=== PATIENT | female | born 1960 | race Caucasian/White ===

== ENCOUNTER 2016-05-03 10:51 | Inpatient (IN) | payer OTHER ==
[~2016-05-03] VITALS: Ht 167.6 cm; Wt 116.0 kg
[~2016-05-03 10:51] MED LIST: ADV25050 INH; ALBU18HF INHALATION; BENA10TA48 PO; DIGO250T PO; FURO40TA4 PO; GLIM4TAB PO; METF1000 PO; METO-429 PO; MONT10TA24 PO; RIVA20TA PO; SITA100T8 PO; SPIR25TA PO; TIOT18CA INH
[2016-05-03] MEDS ORDERED: HYDROmorphONE 1 MG/ML SYG IV STA (11:31)
[2016-05-03] MEDS ORDERED: SOD CHLORIDE 0.9% 1,000 ML IV STA (11:31)
[2016-05-03] MEDS ORDERED: ONDANSETRON 4 MG INJ IV STA (11:31)
--- NOTE | 2016-05-03 12:07 | ERA ---
ER Documentation Chief Complaint Date/Time DATE: 05/03/16 TIME: 12:06 Chief Complaint Complains of severe abdominal pain and swelling of the lower extremities HPI This is a 55-year-old female with a history of brain tumor, diabetes, hypertension, CHF who is here for 1 week of diffuse abdominal pain described as achy and crampy. She says nothing makes it worse but having a bowel movement makes it better. She says she has had constipation but no diarrhea no vomiting no fever. No radiation of pain to the back. Patient was recently seen and admitted at [facility] for pneumonia and CHF she is not having any shortness of breath or cough. She does have some word finding difficulty due to the brain mass. ROS All systems reviewed and are negative except as per history of present illness. Medications Home Meds Active Scripts Tiotropium Terril* (Spiriva*) 18 Mcg Cap.w.dev, 1 INH INH DAILY for 30 Days Prov:BRITTANY HAYES NP 01/09/16 Spironolactone* (Aldactone*) 25 Mg Tablet, 25 MG PO DAILY for 30 Days, TAB Prov:BRITTANY HAYES NP 01/09/16 Salmeterol Xinaf/Fluticasone* (Advair*) 250-50 Diskus Inhaler, 1 INH INH BID for 30 Days Prov:BRITTANY HAYES NP 01/09/16 Rivaroxaban* (Xarelto*) 20 Mg Tablet, 20 MG PO WITH DINNER for 30 Days, TAB Prov:BRITTANY HAYES NP 01/09/16 Montelukast Sodium* (Montelukast Sodium*) 10 Mg Tablet, 10 MG PO HS for 30 Days , TAB Prov:BRITTANY HAYES NP 01/09/16 Metoprolol Tartrate* (Lopressor*) 50 Mg Tab, 50 MG PO BID for 30 Days, TAB Prov:BRITTANY HAYES NP 01/09/16 Digoxin* (Digitek*) 250 Mcg Tablet, 0.25 MG PO DAILY@13 for 30 Days, TAB Prov:BRITTANY HAYES NP 01/09/16 Albuterol Sulfate* (Ventolin HFA*) 18 Gm Hfa.aer.ad, 2 PUFF INHALATION Q4H, #1 INHALER Prov:KEKE SMALLS MD 12/25/15 Reported Medications Glimepiride* (Glimepiride*) 4 Mg Tablet, 4 MG PO WITH BREAKFAST DINNE, TAB 01/03/16 Sitagliptin* (Januvia*) 100 Mg Tablet, 100 MG PO DAILY, #30 TAB 01/03/16 Metformin Hcl* (Metformin Hcl*) 1,000 Mg Tablet, 1000 MG PO WITH BREAKFAST DINNE , #30 TAB 01/03/16 Benazepril Hcl* (Benazepril Hcl*) 10 Mg Tablet, 10 MG PO DAILY 05/11/12 Furosemide (Lasix) 40 Mg Tab, 40 MG PO DAILY 05/11/12 Allergies Allergies: Coded Allergies: No Known Allergy (Unverified , 05/03/16) PMhx/Soc History of Surgery: Yes (Brain tumor) Anesthesia Reaction: No Hx Neurological Disorder: Yes (Brain tumor) Hx Respiratory Disorders: Yes (COPD) Hx Cardiac Disorders: Yes (HTN, CHF, Afib) Hx Psychiatric Problems: No Hx Miscellaneous Medical Probl: No Hx Alcohol Use: No Hx Substance Use: No Hx Tobacco Use: Yes FmHx Family History: No coronary disease Physical Exam Vitals Vital Signs Date Time Temp Pulse Resp B/P Pulse Ox O2 Delivery O2 Flow Rate FiO2 05/03/16 18:40 98.7 118 20 107/94 100 Nasal Cannula 2.0 05/03/16 18:35 123 05/03/16 10:54 98.7 156 20 100 Physical Exam Const: Well-developed, well-nourished Head: Atraumatic, normocephalic Eyes: Normal Conjunctiva, PERRLA, EOMI, normal sclera, no nystagmus ENT: Normal External Ears, Nose and Mouth, moist mucus membranes. Neck: Full range of motion. No meningismus, no lymphadenopathy. Resp: Clear to auscultation bilaterally, no wheezing, rhonchi, rales Cardio: Regular rate and rhythm, no murmurs, S1 S2 present Abd: Soft, diffuse mild to moderate tenderness non distended. Normal bowel sounds, no guarding or rebound, no pulsitile abdominal masses or bruits Skin: No petechiae or rashes, no ecchymosis , no maculopapular rash Back: No midline or flank tenderness Ext: No cyanosis, or edema, FROM x 4, normal inspection, neurovascularly intact x 4 Neur: Awake and alert, STR 5/5 x 4, sensation intact x 4, no focal findings, cerebellum intact Psych: Normal Mood and Affect Result Diagram: 05/03/16 1225 05/03/16 1225 Results 24 hrs Laboratory Tests Test 05/03/16 12:25 Alanine Aminotransferase (ALT/SGPT) 145IU/L Albumin 4.5g/dl Albumin/Globulin Ratio 1.12 Alkaline Phosphatase 168IU/L Anion Gap 28 Aspartate Amino Transf (AST/SGOT) 83IU/L Basophils # 0.110^3/ul Basophils % 0.9% Blood Urea Nitrogen 11mg/dl Calcium Level 10.2mg/dl Carbon Dioxide Level 21mmol/L Chloride Level 98mmol/L Creatinine 0.81mg/dl Direct Bilirubin 0.00mg/dl Eosinophils # 0.110^3/ul Eosinophils % 1.4% Globulin 4.00g/dl Glucose Level 144mg/dl Hematocrit 42.6% Hemoglobin 13.4g/dl Indirect Bilirubin 1.2mg/dl Lipase 45U/L Lymphocytes # 0.910^3/ul Lymphocytes % 14.6% Mean Corpuscular Hemoglobin 28.9pg Mean Corpuscular Hemoglobin Concent 31.5g/dl Mean Corpuscular Volume 92.0fl Mean Platelet Volume 10.3fl Monocytes # 0.310^3/ul Monocytes % 5.5% Neutrophils # 4.510^3/ul Neutrophils % 77.1% Nucleated Red Blood Cells # 0.010^3/ul Nucleated Red Blood Cells % 0.0/100WBC Platelet Count 17834^3/UL Potassium Level 5.7mmol/L Red Blood Count 4.6310^6/ul Red Cell Distribution Width 19.2% Sodium Level 141mmol/L Total Bilirubin 1.2mg/dl Total Protein 8.5g/dl White Blood Count 5.810^3/ul Current Medications Medications (Trade) Dose Ordered Sig/Marck Route PRN Reason Start Time Stop Time Status Last Admin Dose Admin Sodium Chloride (NS) 1,000 ml @ 1,000 mls/hr Q1H STAT IV 05/03/16 11:31 05/03/16 12:30 DC 05/03/16 12:29 Hydromorphone HCl (Dilaudid) 1 mg ONCE STAT IV 05/03/16 11:31 05/03/16 11:32 DC 05/03/16 12:29 Ondansetron HCl (Zofran Inj) 4 mg ONCE STAT IV 05/03/16 11:31 05/03/16 11:32 DC 05/03/16 12:29 IV Flush 10 ml 10 ml STK-MED ONCE .ROUTE 05/03/16 15:34 05/03/16 15:35 DC 05/03/16 15:34 Sodium Chloride (NS) 100 ml @ ud STK-MED ONCE .ROUTE 05/03/16 15:34 05/03/16 15:35 DC 05/03/16 15:34 Iodixanol (Visipaque Locm) 100 ml STK-MED ONCE .ROUTE 05/03/16 15:34 05/03/16 15:35 DC 05/03/16 15:34 Diltiazem HCl 20 mg 20 mg ONCE ONCE IV 05/03/16 17:30 05/03/16 17:31 DC 05/03/16 18:19 Diltiazem HCl (Cardizem-D5W 125 Mg/125 ml Drip) 125 ml @ 0 mls/hr Q0M IV 05/03/16 17:30 05/03/16 19:03 Insulin Human Regular (Humulin R) 10 unit ONCE STAT IV 05/03/16 17:17 05/03/16 17:19 DC 05/03/16 17:55 Dextrose (D50w Syringe) 50 ml ONCE STAT IV 05/03/16 17:17 05/03/16 17:19 DC 05/03/16 17:52 Sodium Polystyrene Sulfonate (Kayexalate) 30 gm ONCE STAT PO 05/03/16 17:17 05/03/16 17:19 DC 05/03/16 18:21 Sodium Bicarbonate (Na Bicarb 8.4% Syg) 50 ml ONCE STAT IV 05/03/16 17:17 05/03/16 17:19 DC 05/03/16 17:52 Diltiazem HCl (Cardizem Iv) 20 mg ONCE ONCE IV 05/03/16 20:30 05/03/16 20:31 Procedures/MDM PROCEDURE: CT Abdomen and Pelvis with contrast. CLINICAL INDICATION: Abdominal pain. TECHNIQUE: Multiple contiguous axial CT images of the abdomen and pelvis were obtained following the administration of 99 cc of Visipaque 320. Coronal and sagittal reconstructions were also performed. CTDIvol (mGy): 23.43; Total Exam DLP (mGy-cm): 1436.34. One or more of the following dose reduction techniques were utilized: - Automated exposure control. - Adjustment of the mA and/or kV according to patient size. - Use of iterative reconstruction technique. COMPARISON: None. FINDINGS: Limited imaging of the lower thorax demonstrates cardiomegaly with small bilateral pleural effusions. Dilatation of the hepatic veins is observed suggesting sequelae of right heart dysfunction. The spleen, gallbladder, pancreas and adrenal glands are unremarkable. The kidneys are symmetric in size and enhancement. There is no hydronephrosis or abnormal perinephric inflammation. There are no ureteral stones. The abdominal aorta is normal in caliber with atherosclerotic calcification. There is no periaortic / retroperitoneal lymphadenopathy. The stomach and small and large intestines are unremarkable. The appendix is normal. Diffuse mesenteric edema is observed. Small volume ascites is present. The bladder, uterus and adnexa are unremarkable. A small amount of free pelvic fluid is present. There is no pelvic sidewall or inguinal lymphadenopathy. Diffuse subcutaneous edema is observed, particularly within the deep subcutaneous soft tissues. Degenerative changes of the spine are present. IMPRESSION: Cardiomegaly with small bilateral pleural effusions. Dilatation of the hepatic veins suggest sequelae of right heart dysfunction. Diffuse mesenteric edema with small volume ascites. Diffuse subcutaneous soft tissue edema. RPTAT: HLST .Alejandra Morton MD, Date Time Electronically viewed and signed by .Alejandra Morton MD, MD on 05/03/2016 16:26 .T/ CC: TANVI EATON DO During the patient's workup the patient's heart rate went up to 165 and she was in atrial fibrillation with rapid ventricular response. EKG: Rate/Rhythm: Atrial fibrillation with rapid ventricular response heart rate 162, right axis deviation QRS, ST, QT: Normal, QRS, QT] Impression: A. fib with RVR Patient was started on Cardizem drip after to Cardizem bolus Patient admitted to telemetry I will obtain an ultrasound of the gallbladder due to elevated liver function test however her pain is located in the lower abdomen and not upper Critical Care Time: 30 minutes Treatments/Evaluations: Close monitoring and treatment of unstable vital signs, cardiorespiratory, and neurologic status, while maintaining tight balance of fluid, respiratory, and cardiac interventions. This time includes discussing the case with the patient and the patient's family. This time does not include all procedures stated elsewhere in this record. This time also includes reviewing old records, labs and radiological studies. This time includes examining and re-examining the patient. Additionally, this time also includes arranging care with admitting and consulting physicians. ] Departure Diagnosis: Primary Impression: Atrial fibrillation with rapid ventricular response Additional Impression: Abdominal pain Qualified Code: R10.30 - Lower abdominal pain Condition: Stable TANVI EATON DO May 03, 2016 12:07
[2016-05-03 12:52] LABS: EOSINOPHILS # 0.1 10^3/ul (0.0-0.5); EOSINOPHILS % 1.4 % (0.0-7.0); HEMATOCRIT 42.6 % (37.0-47.0); NEUTROPHILS % 77.1 % (39.0-77.0); RED BLOOD COUNT 4.63 10^6/ul (4.20-5.40)
[2016-05-03 12:59] LABS: BASOPHIL # 0.1 10^3/ul (0.0-0.1); BASOPHILS % 0.9 % (0.0-2.0); HEMOGLOBIN 13.4 g/dl (12.0-16.0); LYMPHOCYTES # 0.9 10^3/ul (0.8-2.9); LYMPHOCYTES % 14.6 % (15.0-51.0); MEAN CORPUSCULAR HEMOGLOBIN 28.9 pg (29.0-33.0); MEAN CORPUSCULAR HGB CONC 31.5 g/dl (32.0-37.0); MEAN PLATELET VOLUME 10.3 fl (7.4-10.4); MONOCYTE # 0.3 10^3/ul (0.3-0.9); MONOCYTES % 5.5 % (0.0-11.0); NEUTROPHIL # 4.5 10^3/ul (1.6-7.5); PLATELET COUNT 251 10^3/UL (140-415); RED CELL DISTRIBUTION WIDTH 19.2 % (11.5-14.5); WHITE BLOOD COUNT 5.8 10^3/ul (4.8-10.8)
[2016-05-03 13:35] LABS: ALBUMIN 4.5 g/dl (3.3-4.9)
[2016-05-03 13:36] LABS: POTASSIUM 5.7 mmol/L (3.5-5.1)
[2016-05-03 13:38] LABS: ALBUMIN/GLOBULIN RATIO 1.12; BILIRUBIN,INDIRECT 1.2 mg/dl (0-1.1); BILIRUBIN,TOTAL 1.2 mg/dl (0.2-1.3); CALCIUM 10.2 mg/dl (8.4-10.2); CREATININE 0.81 mg/dl (0.44-1.00); TOTAL PROTEIN 8.5 g/dl (6.1-8.1)
[2016-05-03] MEDS ORDERED: IODIXANOL LOCM 100 ML BTL ONE (15:34)
[2016-05-03] MEDS ORDERED: SOD CHLORIDE 0.9% 100 ML ONE (15:34)
--- NOTE | 2016-05-03 16:26 | RADRPT ---
PROCEDURE: CT Abdomen and Pelvis with contrast. CLINICAL INDICATION: Abdominal pain. TECHNIQUE: Multiple contiguous axial CT images of the abdomen and pelvis were obtained following t he administration of 99 cc of Visipaque 320. Coronal and sagittal reconstructions were also perform ed. CTDIvol (mGy): 23.43; Total Exam DLP (mGy-cm): 1436.34. One or more of the following dose reduction techniques were utilized: - Automated exposure control. - Adjustment of the mA and/or kV according to patient size. - Use of iterative reconstruction technique. COMPARISON: None. FINDINGS: Limited imaging of the lower thorax demonstrates cardiomegaly with small bilateral pleural effusions . Dilatation of the hepatic veins is observed suggesting sequelae of right heart dysfunction. The spl een, gallbladder, pancreas and adrenal glands are unremarkable. The kidneys are symmetric in size and enhancement. There is no hydronephrosis or abnormal perinephr ic inflammation. There are no ureteral stones. The abdominal aorta is normal in caliber with atherosclerotic calcification. There is no periaortic / retroperitoneal lymphadenopathy. The stomach and small and large intestines are unremarkable. The appendix is normal. Diffuse mesen teric edema is observed. Small volume ascites is present. The bladder, uterus and adnexa are unremarkable. A small amount of free pelvic fluid is present. Th ere is no pelvic sidewall or inguinal lymphadenopathy. Diffuse subcutaneous edema is observed, particularly within the deep subcutaneous soft tissues. Deg enerative changes of the spine are present. IMPRESSION: Cardiomegaly with small bilateral pleural effusions. Dilatation of the hepatic veins suggest sequel ae of right heart dysfunction. Diffuse mesenteric edema with small volume ascites. Diffuse subcutaneous soft tissue edema. RPTAT: HLST .Alejandra Morton MD, Date Time Electronically viewed and signed by .Alejandra Morton MD, MD on 05/03/2016 16:26 .T/
[2016-05-03] MEDS ORDERED: DEXTROSE 50% 50 ML SYRINGE IV STA (17:17)
[2016-05-03] MEDS ORDERED: NA BICARBONATE 8.4% 50 ML SYG IV STA (17:17)
[2016-05-03] MEDS ORDERED: INSULIN REGULAR, HUMAN 100 UNIT/1 ML 3ML VIAL IV STA (17:17)
[2016-05-03] MEDS ORDERED: NA POLYST SULFON 15 GM/60 ML BTL PO STA (17:17)
[2016-05-03] MEDS ORDERED: DILTIAZEM 25 MG INJ IV ONE ×2 (17:30→20:30)
[2016-05-03] MEDS: DILTIAZEM-D5W 125MG/125ML DRIP 125 ML IV SCH (19:03)
[2016-05-03] MEDS ORDERED: SOD CHLORIDE 0.9% 1,000 ML IV SCH (20:17)
[2016-05-03] MEDS ORDERED: ACETAMINOPHEN 325 MG TAB PO PRN (20:30)
[2016-05-03] MEDS ORDERED: ONDANSETRON 4 MG INJ IV PRN (20:30)
--- NOTE | 2016-05-03 21:20 | RADRPT ---
PROCEDURE: US Abdomen. CLINICAL INDICATION: Abdominal pain TECHNIQUE: Multiple real-time images were acquired of the patient's right upper quadrant utilizing a high resolution transducer. The images were reviewed on a high-resolution PACS workstation. COMPARISON: None FINDINGS: The liver is not well evaluated secondary to poor penetration. The liver measures 16.1 cm in size. Competitive flow in the main portal vein is seen. The hepatic veins appear distended. The gallblad marilee appears to be contracted. No gallstones are seen. There is no pericholecystic fluid. No intrahe patic biliary dilatation is seen. The common bile duct measures 3.2 mm in maximal dimension. The p ancreas is not well visualized. No free fluid is identified. A small volume of ascites is seen. The right kidney is of normal size, and demonstrate normal echogenicity and morphology. The right k idney measures 9.5 cm. There are is no dilatation of the right collecting system. There are no per inephric fluid collections. There are no areas of increased echogenicity to suggest nephrolithiasis . IMPRESSION: 1. Small volume of ascites. 2. Distended hepatic veins, questionable if this is related to right heart failure. Correlation wi th an echocardiogram may be of value as clinically warranted. 3. Contracted gallbladder. RPTAT: HPNM Physician Derrick Date Time Electronically viewed and signed by Physician Derrick on 05/03/2016 21:19 /
[2016-05-03 22:36] VITALS: TEMP 98.7
[2016-05-03 22:58] VITALS: PULSE 111
[2016-05-03 23:22] VITALS: Ht 167.6 cm; Wt 116.0 kg
[2016-05-03 23:35] VITALS: BP 98/71; PULSE 100; RESP 20
[2016-05-04] VITALS (13 sets, daily range): BP systolic 111–133; BP diastolic 67–90; PULSE 87–158; RESP 18–20
[2016-05-04] MEDS ORDERED: ACETAMINOPHEN 325 MG TAB PO PRN
[2016-05-04] MEDS ORDERED: DEXTROSE 50% 50 ML SYRINGE IV PRN ×2 (00:30)
[2016-05-04] MEDS ORDERED: GLUCOSE GEL 15 GRAM TUBE BUCCAL PRN (00:30)
[2016-05-04] MEDS ORDERED: GLUCOSE GEL 15 GRAM TUBE PO PRN ×2 (00:30)
[2016-05-04] MEDS ORDERED: GLUCAGON 1 MG INJ IM PRN (00:30)
[2016-05-04] MEDS: HYDROCODONE/APAP (10/325) TAB PO PRN (00:38)
[2016-05-04] MEDS: INSULIN GLARGINE [LANtus] 3 ML PEN SC SCH ×2 (01:00→21:08)
[2016-05-04] MEDS ORDERED: FUROSEMIDE 40 MG TAB PO SCH (01:00)
[2016-05-04] MEDS ORDERED: ONDANSETRON 4 MG INJ IV PRN (02:00)
[2016-05-04] MEDS ORDERED: ACCUCHECK XX SCH (02:00)
[2016-05-04] MEDS: ACCUCHECK XX SCH (02:00)
[2016-05-04] MEDS: DILTIAZEM-D5W 125MG/125ML DRIP 125 ML IV SCH ×3 (03:15→13:44)
[2016-05-04] MEDS: morphine 4 MG/ML VIAL IV PRN ×2 (03:41→09:27)
[2016-05-04] MEDS: ALBUTEROL/IPRATROPIUM (NEB) 3 ML AMP HHN PRN (04:29)
[2016-05-04] MEDS: FUROSEMIDE 40 MG TAB PO SCH (05:23)
--- NOTE | 2016-05-04 06:21 | HP ---
Date/Time of Note Date/Time of Note DATE: 05/04/16 TIME: 05:34 Assessment/Plan VTE Prophylaxis VTE Prophylaxis Intervention: other (Xarelto) Lines/Catheters IV [facility]ter [facility]from [facility] Peripheral IV Urinary Cath still in place: No Assessment/Plan Assessment/Plan 1. Atrial fibrillation with RVR - Cont telemetry monitoring - Cont Cardizem gtt, Digoxin and Xarelto when BP improves, start home metoprolol. 2. Cardiomyopathy with Systolic Dysfunction Ejection Fraction of 20%. - Will restart hpme ACEI, Beta Khari and Aldactone when BP improves 3. Essential Hypertension: BP now in lower side on Cardizem gtt. Will restart home meds as needed 4. Dilatation of the hepatic veins suggest: - this is a sequelae of right heart dysfunction. - Cont Lasix 5. Hx of COPD: - Cont Advair, Spiriva, Bronchodilators. Oxygen and Steroid as needed 6. Hx of Pulmonary hypertension: cont meds 7. Type 2 diabetes mellitus, poorly controlled - Insulin while in house 8. .Substance abuse: last meth use was 2 days ago - Advanced about discontinuation . HPI/ROS Admit Date/Time Admit Date/Time May 03, 2016 at 23:03 Hx of Present Illness The patient is a 55-year-old female with a history of hypertension, atrial fibrillation, COPD, diabetes, substance abuse, and cardiomyopathy with systolic dysfunction with ejection fraction of 20% who presented to the emergency department with a chief complaint of abd pain. Pain is diffuse and is better with bowel movement. The patient was last admitted here few months ago by myself for Afib with RVR. 3 days prior to last admission ,she also presented with shortness of breath. At the time, she stated she was smoking methamphetamine and then she started having shortness of breath as well as palpitation and a pressure-like chest discomfort. She was also found to be in AFib with RVR at that time. The patient, however, left against medical advice the same day of admission. A 2-D echo, however, was done prior to her discharge which showed an ejection fraction of 20% as well as moderate pulmonary hypertension and moderate to severe tricuspid regurgitation. In ER, today, abd u/s and CT abd/pelvis was done with results as follows. She also went into Afib with RVR and has been on Cardigem gtt. CT abd/pelvis: Cardiomegaly with small bilateral pleural effusions. Dilatation of the hepatic veins suggest sequelae of right heart dysfunction. Diffuse mesenteric edema with small volume ascites. Diffuse subcutaneous soft tissue edema. Abd U/S: Small volume of ascites. Distended hepatic veins, questionable if this is related to right heart failure. Correlation with an echocardiogram may be of value as clinically warranted. Contracted gallbladder. . PMH/Family/Social Social History Smoking Status: Current every day smoker Exam/Review of Systems Vital Signs Vitals Vital Signs Date Time Temp Pulse Resp B/P Pulse Ox O2 Delivery O2 Flow Rate FiO2 05/04/16 04:33 2.0 05/04/16 04:33 56 24 97 Nasal Cannula 05/04/16 03:23 97.2 132/82 Intake and Output 05/03/16 05/03/16 05/04/16 15:00 23:00 07:00 Intake Total 1000 ml 125 ml Balance 1000 ml 125 ml Exam Exam GENERAL: No acute distress. The patient is able to speak in full sentences, answering questions appropriately. HEENT: No obvious head deformity. Pupils are reactive to light. Extraocular muscles intact. CARDIOVASCULAR: Irregularly irregular. LUNGS: Decreased breath sounds at the bases with minimal scattered wheezing. ABDOMEN: Soft, nontender, nondistended. Positive bowel sounds. EXTREMITIES: No edema. NEUROLOGIC: No focal deficits. Labs Result Diagram: 05/03/16 1225 05/03/16 1225 Medications Medications Current Medications Diltiazem HCl (Cardizem-D5W 125 Mg/125 ml Drip) 125 ml @ 0 mls/hr Q0M IV Last administered on 05/04/16 03:15; Admin Dose 12 MLS/HR; Start 05/03/16 at 17:30 Acetaminophen (Tylenol Tab) 650 mg Q6H PRN PO PAIN AND OR ELEVATED TEMP; Start 05/04/16 at 00:00 Acetaminophen/ Hydrocodone Bitart ([place] (10/325)) 1 tab Q4H PRN PO PAIN Last administered on 05/04/16 00:38; Admin Dose 1 TAB; Start 05/04/16 at 00:00 Diagnostic Test (Pha) (Accucheck) 1 ea 02 XX ; Start 05/04/16 at 02:00 Digoxin (Digoxin) 0.25 mg DAILY@13 PO ; Start 05/04/16 at 13:00 Montelukast Sodium (Singulair) 10 mg HS PO ; Start 05/04/16 at 21:00 Salmeterol Xinafoate/ Fluticasone (Advair 250/50 Diskus) 1 inh BID INH ; Start 05/04/16 at 09:00 Tiotropium [place] (Spiriva) 1 inh DAILY INH ; Start 05/04/16 at 09:00 Miscellaneous Information 1 ea NOTE XX ; Start 05/04/16 at 00:30 Glucose (Glutose) 15 gm Q15M PRN PO DECREASED GLUCOSE; Start 05/04/16 at 00:30 Glucose (Glutose) 22.5 gm Q15M PRN PO DECREASED GLUCOSE; Start 05/04/16 at 00: 30 Dextrose (D50w Syringe) 25 ml Q15M PRN IV DECREASED GLUCOSE; Start 05/04/16 at 00:30 Dextrose (D50w Syringe) 50 ml Q15M PRN IV DECREASED GLUCOSE; Start 05/04/16 at 00:30 Glucagon (Glucagen) 1 mg Q15M PRN IM DECREASED GLUCOSE; Start 05/04/16 at 00:30 Glucose (Glutose) 15 gm Q15M PRN BUCCAL DECREASED GLUCOSE; Start 05/04/16 at 00 :30 Insulin Glargine (Lantus) 10 unit QHS SC ; Start 05/04/16 at 01:00 Furosemide (Lasix) 40 mg DAILY@06 PO Last administered on 05/04/16 05:23; Admin Dose 40 MG; Start 05/04/16 at 06:00 Ondansetron HCl (Zofran Inj) 4 mg Q6H PRN IV NAUSEA AND/OR VOMITING Last administered on 05/04/16 01:47; Admin Dose 4 MG; Start 05/04/16 at 02:00 Morphine Sulfate (morphine) 3 mg Q4H PRN IV PAIN LEVEL 7-10 Last administered on 05/04/16 03:41; Admin Dose 3 MG; Start 05/04/16 at 03:30 NATHAN DE JESUS MD May 04, 2016 05:52
[2016-05-04] MEDS: INSULIN ASPART [NOVOLOG] 3 ML PEN SC SCH ×4 (07:43→21:00)
[2016-05-04] MEDS: TIOTROPIUM 18 MCG CAPSULE INHA DEV INH SCH (09:12)
[2016-05-04] MEDS: SALMETEROL/FLUTICASONE 250/50 INHA INH SCH ×2 (09:12→21:00)
[2016-05-04] MEDS ORDERED: LORAZEPAM 2 MG INJ IV PRN (12:00)
[2016-05-04] MEDS: DIGOXIN 0.25 MG TAB PO SCH (12:12)
[2016-05-04] MEDS ORDERED: LORAZEPAM 2 MG INJ IV ONE (14:30)
--- NOTE | 2016-05-04 14:41 | RADRPT ---
Echocardiogram Report Patient Name: PAGE GUTIÉRREZ Gender: Female Date: 1960 Study Date: 04-May-2016 Senior Internet Sales Consultant: [facility] Location: [id number] Ref. Physician: CATE GIBBONS Quality: Adequate Procedures: Transthoracic echocardiogram with complete 2D, M-Mode, and doppler examination. Indications: WITH RVR. 2D/M Mode Doppler Measurement Value Normal Ranges Measurement Value Normal Ranges LVIDd 2D 6.8 3.5 - 5.6 cm AV Peak Romie 1.3 m/sec LVIDs 2D 6.3 2.1 - 4.1 cm AV Peak PG 6.0 mmHg FS 2D 6.1 % LVOT Peak Romie 1.1 m/sec LVPWd 2D 1.1 0.6 - 1.1 cm LVOT Peak PG 5.0 mmHg IVSd 2D 1.0 0.6 - 1.1 cm MV E Peak Romie 1.2 m/sec IVS/LVPW 2D 0.9 MV Decel Time 127 msec AoR Diam 2D 3.1 2.0 - 3.7 cm MR Peak PG 98.0 mmHg LA/Ao 2D 2 0 - 1 MR Peak Romie 5.0 m/sec EDV 2D 309.0 cm3 TR Peak Romie 2.5 m/sec ESV 2D 256.0 cm3 TR Peak PG 24.0 mmHg LA Dimen 2D 5.8 2.3 - 4.0 cm Findings Left Ventricle: Normal left ventricular wall thickness. Mild enlargement of left ventricle cavity. Severe global left ventricular systolic dysfunction. Ejection fraction is visually estimated at 20 %. Tissue Doppler/Mitral Doppler indices are consistent with restrictive physiology with markedly elevated left atrial pressure (Stage IIIIV diastolic dysfunction). Right Ventricle: Mild enlargement of right ventricle. Left Atrium: There is severe enlargement of left atrium. Right Atrium: There is moderate enlargement of right atrium. Mitral Valve: Mild mitral leaflet calcification. Moderate mitral valve regurgitation. Aortic Valve: Trileaflet aortic valve. Trace aortic valve regurgitation. Tricuspid Valve: Estimated peak PA systolic pressure 32 mmHg. There is moderate tricuspid regurgitation. Pulmonic Valve: There is mild pulmonic regurgitation. Pericardium: Normal pericardium with no significant pericardial effusion. Aorta: Normal aortic root. IVC: Dilated inferior vena cava with poor inspiratory collapse consistent with elevated right atrial pressures. Conclusions 1.Normal left ventricular wall thickness. Mild enlargement of left ventricle cavity. Severe global left ventricular systolic dysfunction. Ejection fraction is visually estimated at 20 %. Tissue Doppler/Mitral Doppler indices are consistent with restrictive physiology with markedly elevated left atrial pressure (Stage III-IV diastolic dysfunction). 2.There is severe enlargement of left atrium. 3.Mild enlargement of right ventricle. 4.There is moderate enlargement of right atrium. 5.Mild mitral leaflet calcification. Moderate mitral valve regurgitation. 6.Trileaflet aortic valve. Trace aortic valve regurgitation. 7.Estimated peak PA systolic pressure 32 mmHg. There is moderate tricuspid regurgitation. 8.Dilated inferior vena cava with poor inspiratory collapse consistent with elevated right atrial pressures. Electronically Signed By: Marcus Nugent 04-May-2016 14:40:35 -0800 Patient Name: PAGE GUTIÉRREZ Study Date: 04-May-[id number]
[2016-05-04 15:21] LABS: ADD SCAN DIFF NO
[2016-05-04 15:41] LABS: ALBUMIN 3.5 g/dl (3.3-4.9)
[2016-05-04 15:42] LABS: POTASSIUM 5.1 mmol/L (3.5-5.1)
[2016-05-04 15:44] LABS: ALBUMIN/GLOBULIN RATIO 1.09; BILIRUBIN,DIRECT 0.7 mg/dl (0.00-0.20); BILIRUBIN,INDIRECT 1.2 mg/dl (0-1.1); BILIRUBIN,TOTAL 1.9 mg/dl (0.2-1.3); CREATININE 1.58 mg/dl (0.44-1.00); TOTAL PROTEIN 6.7 g/dl (6.1-8.1)
[2016-05-04 15:45] LABS: CHOL/HDL RATIO 5.8 RATIO; MAGNESIUM 1.4 mg/dl (1.7-2.5); PHOSPHORUS 6.6 mg/dl (2.5-4.9)
[2016-05-04 15:50] LABS: BASOPHIL # 0.1 10^3/ul (0.0-0.1); BASOPHILS % 1.1 % (0.0-2.0); EOSINOPHILS # 0.2 10^3/ul (0.0-0.5); EOSINOPHILS % 2.1 % (0.0-7.0); HEMATOCRIT 34.8 % (37.0-47.0); HEMOGLOBIN 10.7 g/dl (12.0-16.0); LYMPHOCYTES % 13.7 % (15.0-51.0); MEAN CORPUSCULAR HEMOGLOBIN 28.7 pg (29.0-33.0); MEAN CORPUSCULAR HGB CONC 30.7 g/dl (32.0-37.0); MEAN CORPUSCULAR VOLUME 93.3 fl (82.0-101.0); MEAN PLATELET VOLUME 10.3 fl (7.4-10.4); MONOCYTE # 0.7 10^3/ul (0.3-0.9); NEUTROPHIL # 5.2 10^3/ul (1.6-7.5); NEUTROPHILS % 72.7 % (39.0-77.0); NUCLEATED RED BLOOD CELLS # 0.1 10^3/ul (0.0-0.0); NUCLEATED RED BLOOD CELLS% 0.7 /100WBC (0.0-0.0); PLATELET COUNT 227 10^3/UL (140-415); RED BLOOD COUNT 3.73 10^6/ul (4.20-5.40); WHITE BLOOD COUNT 7.1 10^3/ul (4.8-10.8)
[2016-05-04 16:23] LABS: T3 UPTAKE 43.4 % (23.5-40.5)
--- NOTE | 2016-05-04 16:43 | CONS ---
DATE OF ADMISSION: 05/03/2016 DATE OF CONSULTATION: 05/04/2016 TYPE OF CONSULTATION: Cardiology. REFERRING PHYSICIAN: Dr. Oliva REASON FOR CONSULTATION: Atrial fibrillation. CHIEF COMPLAINT: Shortness of breath. HISTORY OF PRESENT ILLNESS: Thank you for this referral. History was obtained from extensive revie w of the old chart, discussion with the staff. The patient sedated and unable to give a history to me. This is an unfortunate 55-year-old female with history of hypertension, chronic atrial fibrilla tion, dilated cardiomyopathy, most likely related to drug abuse with history of substance abuse incl uding amphetamine use. She came to emergency room with complaint of abdominal pain and shortness of breath. The patient was admitted a few months ago for shortness of breath after she started using amphetamine again. She had rapid ventricular response. She was discharged on medication. She appa rently has started using amphetamine again. Last use was 1 to 2 days ago. She came in with shortne ss of breath and abdominal discomfort. The patient had atrial fibrillation with rapid ventricular r esponse again. Patient was irritated and agitated. She was given Ativan and currently sedated and unable to give history to me. The patient also has refused lab draw this morning. PAST MEDICAL HISTORY: As above mentioned. SOCIAL HISTORY: The patient actively smokes. Apparently uses drugs including amphetamines. FAMILY HISTORY: No reported early coronary artery disease. MEDICATIONS: At home is unclear of what she actually takes. She was supposed to be taking as per me dical reconciliation, personally reviewed but I am not sure if she actually takes any of them. FAMILY HISTORY: Coronary artery disease. ALLERGIES: NO KNOWN DRUG ALLERGIES. REVIEW OF SYSTEMS: As above-mentioned only. PHYSICAL EXAMINATION: VITAL SIGNS: Temperature 98.1, heart rate of 88. Right now on Cardizem drip 15. Respiratory rate of 20. Blood pressure 124/78. HEENT: Normocephalic, atraumatic. Obese female. Pupils are equal. CARDIOVASCULAR: Irregularly irregular. Systolic murmur. PULMONARY: With no wheezes heard. No rhonchi. GASTROINTESTINAL: Soft, nontender. EXTREMITIES: With trivial lower extremity edema. NEUROLOGIC: Sedated and sleepy. DERMATOLOGIC: There are multiple tattoos. LABORATORY: Sodium 141, potassium 5.7, BUN of 11, creatinine 0.81, glucose 144 on admission. ALT o f 145, AST of 83. Troponin 0.1, most recent TSH showed of 4.4 on 01/04/2016. Echocardiogram was do ne which was personally reviewed and showed dilated cardiomyopathy with ejection fraction of 20%. D ilated IVC. EKG showed atrial fibrillation with rapid ventricular response, low voltage. ASSESSMENT AND PLAN: 1. Atrial fibrillation with rapid ventricular response. 2. Severe dilated cardiomyopathy, most likely related to amphetamine use. 3. Hypertension. 4. Hyperkalemia. 5. Hyperglycemia with elevated liver function tests. History of drug abuse including amphetamine u se. 6. Poor compliance. 7. Anxiety. RECOMMENDATIONS: I will start the patient on carvedilol. Repeat blood test to be done whenever the patient agrees to it. SLIM inhibitor is on hold due to hyperkalemia. Aldactone is also on hold due to hyperkalemia. The patient does not appear to be significantly fluid overloaded at this time. I will add Coreg to her regimen. Titrate off of the Cardizem. 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 Dictated By: ABDI ATWOOD/NAGA Conf#: [id number] DID#: [id number]
[2016-05-04] MEDS: RIVAROXABAN 20 MG TABLET PO SCH (18:06)
[2016-05-04] MEDS ORDERED: PERMETHRIN 5% 60 GM CR TOP ONE (21:00)
[2016-05-04] MEDS: MONTELUKAST 10 MG TAB PO SCH (23:23)
[2016-05-05] VITALS (11 sets, daily range): BP systolic 98–138; BP diastolic 55–86; PULSE 70–87; RESP 15–19
[2016-05-05] MEDS: ACCUCHECK XX SCH (02:00)
[2016-05-05] MEDS: LORAZEPAM 1 MG TAB PO PRN ×2 (02:04→23:18)
[2016-05-05] MEDS: FUROSEMIDE 40 MG TAB PO SCH (06:29)
[2016-05-05] MEDS ORDERED: DILTIAZEM 30 MG TAB PO SCH (07:30)
[2016-05-05] MEDS: INSULIN ASPART [NOVOLOG] 3 ML PEN SC SCH ×4 (09:04→21:00)
--- NOTE | 2016-05-05 09:47 | PN ---
Date/Time of Note Date/Time of Note DATE: 05/05/16 TIME: 09:45 Assessment/Plan VTE Prophylaxis VTE Prophylaxis Intervention: SCD's Lines/Catheters [facility]ter [facility] (from [facility]): Peripheral IV Urinary Cath still in place: No Assessment/Plan Assessment/Plan 1. Atrial fibrillation with rapid ventricular response. 2. Severe dilated cardiomyopathy, most likely related to amphetamine use. 3. Hypertension. 4. Hyperkalemia. 5. Hyperglycemia with elevated liver function tests. History of drug abuse including amphetamine use. 6. Poor compliance. 7. Anxiety. RECOMMENDATIONS: - On carvedilol. Repeat blood test to be done whenever the patient agrees to it. SLIM inhibitor is on hold due to hyperkalemia. Aldactone is also on hold due to hyperkalemia. increase coreg and stop cardizme due to low ef refused iv access Subjective 24 Hr Interval Summary Free Text/Dictation the patient stable with no comaplaints Exam/Review of Systems Vital Signs Vitals Vital Signs Date Time Temp Pulse Resp B/P Pulse Ox O2 Delivery O2 Flow Rate FiO2 05/05/16 08:40 98.4 78 18 111/71 96 05/05/16 02:25 2.0 05/04/16 19:58 Nasal Cannula Intake and Output 05/04/16 05/04/16 05/05/16 15:00 23:00 07:00 Intake Total 95 ml 800 ml Output Total 1200 ml Balance 95 ml -400 ml Results Result Diagram: 05/04/16 1511 05/04/16 1511 Results 24 hrs Laboratory Tests Test 05/04/16 11:44 05/04/16 15:11 05/04/16 17:58 05/04/16 20:56 Bedside Glucose 147 148 145 Alanine Aminotransferase (ALT/SGPT) 124 H Albumin 3.5 # Albumin/Globulin Ratio 1.09 Alkaline Phosphatase 110 Anion Gap 21 #H Aspartate Amino Transf (AST/SGOT) 82 H Basophils # 0.1 Basophils % 1.1 Blood Urea Nitrogen 17 Calcium Level 9.0 Carbon Dioxide Level 23 Chloride Level 98 Cholesterol Level 106 Cholesterol/HDL Ratio 5.8 Creatinine 1.58 H Direct Bilirubin 0.70 #H Eosinophils # 0.2 Eosinophils % 2.1 Free Thyroxine 1.23 Free Thyroxine Index 2.73 Globulin 3.20 Glucose Level 157 HDL Cholesterol 18 L Hematocrit 34.8 L Hemoglobin 10.7 #L Hemoglobin A1c 7.7 H Indirect Bilirubin 1.2 H LDL Cholesterol, Calculated 74 Lymphocytes # 1.0 Lymphocytes % 13.7 L Magnesium Level 1.4 L Mean Corpuscular Hemoglobin 28.7 L Mean Corpuscular Hemoglobin Concent 30.7 L Mean Corpuscular Volume 93.3 Mean Platelet Volume 10.3 Monocytes # 0.7 Monocytes % 10.0 Neutrophils # 5.2 Neutrophils % 72.7 Nucleated Red Blood Cells # 0.1 H Nucleated Red Blood Cells % 0.7 H Phosphorus Level 6.6 H Platelet Count 227 Potassium Level 5.1 Red Blood Count 3.73 L Red Cell Distribution Width 19.0 H Sodium Level 137 Thyroxine (T4) 6.3 Total Bilirubin 1.9 H Total Protein 6.7 # Triglycerides Level 72 Triiodothyronine (T3) Uptake 43.4 H Troponin I 0.091 White Blood Count 7.1 # Test 05/05/16 09:04 Bedside Glucose 106 Medications Medications Current Medications Acetaminophen (Tylenol Tab) 650 mg Q6H PRN PO PAIN AND OR ELEVATED TEMP; Start 05/04/16 at 00:00 Acetaminophen/ Hydrocodone Bitart ([place] (10/325)) 1 tab Q4H PRN PO PAIN Last administered on 05/04/16 00:38; Admin Dose 1 TAB; Start 05/04/16 at 00:00 Diagnostic Test (Pha) (Accucheck) 1 ea 02 XX ; Start 05/04/16 at 02:00 Digoxin (Digoxin) 0.25 mg DAILY@13 PO Last administered on 05/04/16 12:12; Admin Dose 0.25 MG; Start 05/04/16 at 13:00 Montelukast Sodium (Singulair) 10 mg HS PO Last administered on 05/04/16 23:23 ; Admin Dose 10 MG; Start 05/04/16 at 21:00 Salmeterol Xinafoate/ Fluticasone (Advair 250/50 Diskus) 1 inh BID INH Last administered on 05/04/16 21:00; Admin Dose 1 INH; Start 05/04/16 at 09:00 Tiotropium [place] (Spiriva) 1 inh DAILY INH Last administered on 05/04/16 09: 12; Admin Dose 1 INH; Start 05/04/16 at 09:00 Miscellaneous Information 1 ea NOTE XX ; Start 05/04/16 at 00:30 Glucose (Glutose) 15 gm Q15M PRN PO DECREASED GLUCOSE; Start 05/04/16 at 00:30 Glucose (Glutose) 22.5 gm Q15M PRN PO DECREASED GLUCOSE; Start 05/04/16 at 00: 30 Dextrose (D50w Syringe) 25 ml Q15M PRN IV DECREASED GLUCOSE; Start 05/04/16 at 00:30 Dextrose (D50w Syringe) 50 ml Q15M PRN IV DECREASED GLUCOSE; Start 05/04/16 at 00:30 Glucagon (Glucagen) 1 mg Q15M PRN IM DECREASED GLUCOSE; Start 05/04/16 at 00:30 Glucose (Glutose) 15 gm Q15M PRN BUCCAL DECREASED GLUCOSE; Start 05/04/16 at 00 :30 Insulin Glargine (Lantus) 10 unit QHS SC Last administered on 05/04/16 21:08; Admin Dose 10 UNIT; Start 05/04/16 at 01:00 Furosemide (Lasix) 40 mg DAILY@06 PO Last administered on 05/05/16 06:29; Admin Dose 40 MG; Start 05/04/16 at 06:00 Ondansetron HCl (Zofran Inj) 4 mg Q6H PRN IV NAUSEA AND/OR VOMITING Last administered on 05/04/16 01:47; Admin Dose 4 MG; Start 05/04/16 at 02:00 Morphine Sulfate (morphine) 3 mg Q4H PRN IV PAIN LEVEL 7-10 Last administered on 05/04/16 09:27; Admin Dose 3 MG; Start 05/04/16 at 03:30 Lorazepam (Ativan) 1 mg Q4 PRN PO ANXIETY Last administered on 05/05/16 02:04 ; Admin Dose 1 MG; Start 05/04/16 at 14:30 Hydroxyzine HCl (Atarax) 25 mg TID PRN PO ITCHING; Start 05/04/16 at 16:00 Carvedilol (Coreg) 6.25 mg BID PO Last administered on 05/04/16 21:03; Admin Dose 6.25 MG; Start 05/04/16 at 21:00 Diltiazem HCl (Cardizem) 30 mg Q8 PO Last administered on 05/05/16 09:02; Admin Dose 30 MG; Start 05/05/16 at 07:30 FARHEEN AUGUSTINE MD May 05, 2016 09:47
[2016-05-05] MEDS: TIOTROPIUM 18 MCG CAPSULE INHA DEV INH SCH (10:18)
[2016-05-05] MEDS: SALMETEROL/FLUTICASONE 250/50 INHA INH SCH ×2 (10:18→21:59)
[2016-05-05 10:57] LABS: CK-MB 2.77 ng/ml (0.0-2.4)
[2016-05-05 11:10] LABS: TROPONIN-I 0.056 ng/ml (0.00-0.12)
[2016-05-05 11:18] LABS: ALBUMIN 3.1 g/dl (3.3-4.9)
[2016-05-05 11:19] LABS: POTASSIUM 4.1 mmol/L (3.5-5.1)
[2016-05-05 11:21] LABS: BILIRUBIN,DIRECT 0.4 mg/dl (0.00-0.20); BILIRUBIN,TOTAL 1.4 mg/dl (0.2-1.3); CREATININE 1.1 mg/dl (0.44-1.00)
[2016-05-05 11:22] LABS: ALBUMIN/GLOBULIN RATIO 1.1; CALCIUM 8.7 mg/dl (8.4-10.2); MAGNESIUM 1.3 mg/dl (1.7-2.5); TOTAL PROTEIN 5.9 g/dl (6.1-8.1)
--- NOTE | 2016-05-05 11:22 | PN ---
Date/Time of Note Date/Time of Note DATE: 05/05/16 TIME: 11:18 Assessment/Plan VTE Prophylaxis VTE Prophylaxis Intervention: other (xarelto) Lines/Catheters [facility] Peripheral IV Urinary Cath still in place: No Assessment/Plan Assessment/Plan 1. Atrial fibrillation with RVR - Cont telemetry monitoring - Cont Cardizem gtt, Digoxin and Xarelto when BP improves, start home metoprolol. 2. Cardiomyopathy with Systolic Dysfunction Ejection Fraction of 20%. - Will restart hpme ACEI, Beta Khari and Aldactone when BP improves 3. Essential Hypertension: BP now in lower side on Cardizem gtt. Will restart home meds as needed 4. Dilatation of the hepatic veins suggest: - this is a sequelae of right heart dysfunction. - Cont Lasix 5. Hx of COPD: - Cont Advair, Spiriva, Bronchodilators. Oxygen and Steroid as needed 6. Hx of Pulmonary hypertension: cont meds 7. Type 2 diabetes mellitus, poorly controlled - Insulin while in house 8. .Substance abuse: last meth use was 2 days ago - Advanced about discontinuation Subjective 24 Hr Interval Summary Free Text/Dictation HR controlled , amgnesium low Exam/Review of Systems Vital Signs Vitals Vital Signs Date Time Temp Pulse Resp B/P Pulse Ox O2 Delivery O2 Flow Rate FiO2 05/05/16 08:40 98.4 78 18 111/71 96 05/05/16 02:25 2.0 05/04/16 19:58 Nasal Cannula Intake and Output 05/04/16 05/04/16 05/05/16 14:59 22:59 06:59 Intake Total 95 ml 800 ml Output Total 1200 ml Balance 95 ml -400 ml Exam GENERAL: No acute distress. The patient is able to speak in full sentences, answering questions appropriately. HEENT: No obvious head deformity. Pupils are reactive to light. Extraocular muscles intact. CARDIOVASCULAR: Irregularly irregular. LUNGS: Decreased breath sounds at the bases with minimal scattered wheezing. ABDOMEN: Soft, nontender, nondistended. Positive bowel sounds. EXTREMITIES: No edema. NEUROLOGIC: No focal deficits. Results Result Diagram: 05/04/16 1511 05/04/16 1511 Results 24 hrs Laboratory Tests Test 05/04/16 11:44 05/04/16 15:11 05/04/16 17:58 05/04/16 20:56 Bedside Glucose 147 148 145 Alanine Aminotransferase (ALT/SGPT) 124 H Albumin 3.5 # Albumin/Globulin Ratio 1.09 Alkaline Phosphatase 110 Anion Gap 21 #H Aspartate Amino Transf (AST/SGOT) 82 H Basophils # 0.1 Basophils % 1.1 Blood Urea Nitrogen 17 Calcium Level 9.0 Carbon Dioxide Level 23 Chloride Level 98 Cholesterol Level 106 Cholesterol/HDL Ratio 5.8 Creatinine 1.58 H Direct Bilirubin 0.70 #H Eosinophils # 0.2 Eosinophils % 2.1 Free Thyroxine 1.23 Free Thyroxine Index 2.73 Globulin 3.20 Glucose Level 157 HDL Cholesterol 18 L Hematocrit 34.8 L Hemoglobin 10.7 #L Hemoglobin A1c 7.7 H Indirect Bilirubin 1.2 H LDL Cholesterol, Calculated 74 Lymphocytes # 1.0 Lymphocytes % 13.7 L Magnesium Level 1.4 L Mean Corpuscular Hemoglobin 28.7 L Mean Corpuscular Hemoglobin Concent 30.7 L Mean Corpuscular Volume 93.3 Mean Platelet Volume 10.3 Monocytes # 0.7 Monocytes % 10.0 Neutrophils # 5.2 Neutrophils % 72.7 Nucleated Red Blood Cells # 0.1 H Nucleated Red Blood Cells % 0.7 H Phosphorus Level 6.6 H Platelet Count 227 Potassium Level 5.1 Red Blood Count 3.73 L Red Cell Distribution Width 19.0 H Sodium Level 137 Thyroxine (T4) 6.3 Total Bilirubin 1.9 H Total Protein 6.7 # Triglycerides Level 72 Triiodothyronine (T3) Uptake 43.4 H Troponin I 0.091 White Blood Count 7.1 # Test 05/05/16 09:04 05/05/16 10:20 Bedside Glucose 106 Creatine Kinase 64 Creatine Kinase Index 4.3 Creatinine Kinase MB (Mass) 2.77 H Digoxin Level 0.7 L Troponin I 0.056 Medications Medications Current Medications Acetaminophen (Tylenol Tab) 650 mg Q6H PRN PO PAIN AND OR ELEVATED TEMP; Start 05/04/16 at 00:00 Acetaminophen/ Hydrocodone Bitart ([place] ()) 1 tab Q4H PRN PO PAIN Last administered on 05/04/16t 00:38; Admin Dose 1 TAB; Start 05/04/16 at 00:00 Diagnostic Test (Pha) (Accucheck) 1 ea 02 XX ; Start 05/04/16 at 02:00 Digoxin (Digoxin) 0.25 mg DAILY@13 PO Last administered on 05/04/16 12:12; Admin Dose 0.25 MG; Start 05/04/16 at 13:00 Montelukast Sodium (Singulair) 10 mg HS PO Last administered on 05/04/16 23:23 ; Admin Dose 10 MG; Start 05/04/16 at 21:00 Salmeterol Xinafoate/ Fluticasone (Advair 250/50 Diskus) 1 inh BID INH Last administered on 05/05/16 10:18; Admin Dose 1 INH; Start 05/04/16 at 09:00 Tiotropium [place] (Spiriva) 1 inh DAILY INH Last administered on 05/05/16 10: 18; Admin Dose 1 INH; Start 05/04/16 at 09:00 Miscellaneous Information 1 ea NOTE XX ; Start 05/04/16 at 00:30 Glucose (Glutose) 15 gm Q15M PRN PO DECREASED GLUCOSE; Start 05/04/16 at 00:30 Glucose (Glutose) 22.5 gm Q15M PRN PO DECREASED GLUCOSE; Start 05/04/16 at 00: 30 Dextrose (D50w Syringe) 25 ml Q15M PRN IV DECREASED GLUCOSE; Start 05/04/16 at 00:30 Dextrose (D50w Syringe) 50 ml Q15M PRN IV DECREASED GLUCOSE; Start 05/04/16 at 00:30 Glucagon (Glucagen) 1 mg Q15M PRN IM DECREASED GLUCOSE; Start 05/04/16 at 00:30 Glucose (Glutose) 15 gm Q15M PRN BUCCAL DECREASED GLUCOSE; Start 05/04/16 at 00 :30 Insulin Glargine (Lantus) 10 unit QHS SC Last administered on 05/04/16 21:08; Admin Dose 10 UNIT; Start 05/04/16 at 01:00 Furosemide (Lasix) 40 mg DAILY@06 PO Last administered on 05/05/16 06:29; Admin Dose 40 MG; Start 05/04/16 at 06:00 Ondansetron HCl (Zofran Inj) 4 mg Q6H PRN IV NAUSEA AND/OR VOMITING Last administered on 05/04/16 01:47; Admin Dose 4 MG; Start 05/04/16 at 02:00 Morphine Sulfate (morphine) 3 mg Q4H PRN IV PAIN LEVEL 7-10 Last administered on 05/04/16 09:27; Admin Dose 3 MG; Start 05/04/16 at 03:30 Lorazepam (Ativan) 1 mg Q4 PRN PO ANXIETY Last administered on 05/05/16 02:04 ; Admin Dose 1 MG; Start 05/04/16 at 14:30 Hydroxyzine HCl (Atarax) 25 mg TID PRN PO ITCHING; Start 05/04/16 at 16:00 Carvedilol (Coreg) 12.5 mg BID PO ; Start 05/05/16 at 10:30 CATE GIBBONS MD May 05, 2016 11:22
[2016-05-05] MEDS ORDERED: MAGNESIUM OXIDE 400 MG TAB PO ONE (11:30)
[2016-05-05 11:55] LABS: THYROID STIMULATING HORMONE 8.27 MIU/L (0.465-4.680)
[2016-05-05] MEDS: HYDROCODONE/APAP (10/325) TAB PO PRN ×2 (12:38→21:59)
[2016-05-05] MEDS: DIGOXIN 0.25 MG TAB PO SCH (12:53)
[2016-05-05] MEDS: RIVAROXABAN 20 MG TABLET PO SCH (18:37)
[2016-05-05] MEDS: MAGNESIUM OXIDE 400 MG TAB PO SCH (21:57)
[2016-05-05] MEDS: MONTELUKAST 10 MG TAB PO SCH (21:58)
[2016-05-05] MEDS: INSULIN GLARGINE [LANtus] 3 ML PEN SC SCH (22:05)
[2016-05-05] MEDS: hydrOXYzine HCL 25 MG TAB PO PRN (23:18)
[2016-05-06] VITALS (14 sets, daily range): BP systolic 110–162; BP diastolic 62–117; PULSE 78–130; RESP 18–20
[2016-05-06] MEDS: ACCUCHECK XX SCH ×2 (02:00→22:34)
[2016-05-06] MEDS: FUROSEMIDE 40 MG TAB PO SCH (06:58)
[2016-05-06] MEDS: INSULIN ASPART [NOVOLOG] 3 ML PEN SC SCH ×4 (08:00→21:00)
[2016-05-06 08:44] LABS: POTASSIUM 4.5 mmol/L (3.5-5.1)
[2016-05-06] MEDS: HYDROCODONE/APAP (10/325) TAB PO PRN ×2 (08:46→20:12)
[2016-05-06 08:47] LABS: CREATININE 0.98 mg/dl (0.44-1.00)
[2016-05-06] MEDS: SALMETEROL/FLUTICASONE 250/50 INHA INH SCH ×2 (08:47→20:13)
[2016-05-06] MEDS: MAGNESIUM OXIDE 400 MG TAB PO SCH ×2 (08:47→20:12)
[2016-05-06] MEDS: hydrOXYzine HCL 25 MG TAB PO PRN ×2 (08:47→20:12)
[2016-05-06 08:48] LABS: CALCIUM 8.7 mg/dl (8.4-10.2)
[2016-05-06] MEDS: TIOTROPIUM 18 MCG CAPSULE INHA DEV INH SCH (08:55)
--- NOTE | 2016-05-06 11:56 | PN ---
Date/Time of Note Date/Time of Note DATE: 05/06/16 TIME: 11:53 Assessment/Plan VTE Prophylaxis VTE Prophylaxis Intervention: other (xarelto ) Lines/Catheters [facility] Type [facility] Peripheral IV Urinary Cath still in place: No Assessment/Plan Assessment/Plan 1. Atrial fibrillation with RVR - on coreg for rate control, Cardizem has been stopped due to low EF 2. Cardiomyopathy with Systolic Dysfunction Ejection Fraction of 20%. - Resume benazepril, continue to hold spironolactone due to hyperk on admission , on Coreg 3. Essential Hypertension: BP now in lower side on Cardizem gtt. Will restart home meds as needed 4. Hx of COPD: - Cont Advair, Spiriva, Bronchodilators. Oxygen and Steroid as needed 6. Hx of Pulmonary hypertension: cont meds 7. Type 2 diabetes mellitus, poorly controlled - Insulin while in house 8. .Substance abuse: last meth use was 2 days ago - Advanced about discontinuation Subjective 24 Hr Interval Summary Free Text/Dictation HR in 100-110s, BP stable, afebrile, Exam/Review of Systems Vital Signs Vitals Vital Signs Date Time Temp Pulse Resp B/P Pulse Ox O2 Delivery O2 Flow Rate FiO2 05/06/16 11:38 98.7 89 19 124/69 97 05/05/16 20:00 Nasal Cannula 2.0 Intake and Output 05/05/16 05/05/16 05/06/16 15:00 23:00 07:00 Intake Total 2400 ml 800 ml Balance 2400 ml 800 ml Exam GENERAL: No acute distress. BP stable HEENT: No obvious head deformity. Pupils are reactive to light. Extraocular muscles intact. CARDIOVASCULAR: Irregularly irregular. LUNGS: Decreased breath sounds at the bases with minimal scattered wheezing. ABDOMEN: Soft, nontender, nondistended. Positive bowel sounds. EXTREMITIES: No edema. NEUROLOGIC: No focal deficits. Results Result Diagram: 05/04/16 1511 05/06/16 0722 Results 24 hrs Laboratory Tests Test 05/05/16 12:57 05/05/16 18:39 05/05/16 22:03 05/06/16 07:22 Bedside Glucose 180 169 123 Anion Gap 14 Blood Urea Nitrogen 23 H Calcium Level 8.7 Carbon Dioxide Level 28 Chloride Level 96 L Creatinine 0.98 Glucose Level 118 # Magnesium Level 1.5 L Potassium Level 4.5 Sodium Level 133 L Test 05/06/16 08:49 Bedside Glucose 114 Medications Medications Current Medications Acetaminophen (Tylenol Tab) 650 mg Q6H PRN PO PAIN AND OR ELEVATED TEMP; Start 05/04/16 at 00:00 Acetaminophen/ Hydrocodone Bitart ([place] ()) 1 tab Q4H PRN PO PAIN Last administered on 05/05/16 12:38; Admin Dose 1 TAB; Start 05/04/16 at 00:00 Diagnostic Test (Pha) (Accucheck) 1 ea 02 XX ; Start 05/04/16 at 02:00 Digoxin (Digoxin) 0.25 mg DAILY@13 PO Last administered on 05/05/16 12:53; Admin Dose 0.25 MG; Start 05/04/16 at 13:00 Montelukast Sodium (Singulair) 10 mg HS PO Last administered on 05/05/16 21:58 ; Admin Dose 10 MG; Start 05/04/16 at 21:00 Salmeterol Xinafoate/ Fluticasone (Advair 250/50 Diskus) 1 inh BID INH Last administered on 05/06/16 08:47; Admin Dose 1 INH; Start 05/04/16 at 09:00 Tiotropium [place] (Spiriva) 1 inh DAILY INH Last administered on 05/06/16 08: 55; Admin Dose 1 INH; Start 05/04/16 at 09:00 Miscellaneous Information 1 ea NOTE XX ; Start 05/04/16 at 00:30 Glucose (Glutose) 15 gm Q15M PRN PO DECREASED GLUCOSE; Start 05/04/16 at 00:30 Glucose (Glutose) 22.5 gm Q15M PRN PO DECREASED GLUCOSE; Start 05/04/16 at 00: 30 Dextrose (D50w Syringe) 25 ml Q15M PRN IV DECREASED GLUCOSE; Start 05/04/16 at 00:30 Dextrose (D50w Syringe) 50 ml Q15M PRN IV DECREASED GLUCOSE; Start 05/04/16 at 00:30 Glucagon (Glucagen) 1 mg Q15M PRN IM DECREASED GLUCOSE; Start 05/04/16 at 00:30 Glucose (Glutose) 15 gm Q15M PRN BUCCAL DECREASED GLUCOSE; Start 05/04/16 at 00 :30 Insulin Glargine (Lantus) 10 unit QHS SC Last administered on 05/05/16 22:05; Admin Dose 10 UNIT; Start 05/04/16 at 01:00 Furosemide (Lasix) 40 mg DAILY@06 PO Last administered on 05/06/16 06:58; Admin Dose 40 MG; Start 05/04/16 at 06:00 Ondansetron HCl (Zofran Inj) 4 mg Q6H PRN IV NAUSEA AND/OR VOMITING Last administered on 05/04/16 01:47; Admin Dose 4 MG; Start 05/04/16 at 02:00 Morphine Sulfate (morphine) 3 mg Q4H PRN IV PAIN LEVEL 7-10 Last administered on 05/04/16 09:27; Admin Dose 3 MG; Start 05/04/16 at 03:30 Lorazepam (Ativan) 1 mg Q4 PRN PO ANXIETY Last administered on 05/05/16 23:18 ; Admin Dose 1 MG; Start 05/04/16 at 14:30 Hydroxyzine HCl (Atarax) 25 mg TID PRN PO ITCHING Last administered on 08:47; Admin Dose 25 MG; Start 05/04/16 at 16:00 Carvedilol (Coreg) 12.5 mg BID PO Last administered on 05/06/16 08:47; Admin Dose 12.5 MG; Start 05/05/16 at 10:30 Magnesium Oxide (Mag-Ox 400) 400 mg ONCE ONCE PO Last administered on 12:53; Admin Dose 400 MG; Start 05/05/16 at 11:30; Stop 05/05/16 at 11:31 Magnesium Oxide (Mag-Ox 400) 400 mg BID PO Last administered on 05/06/16 08:47 ; Admin Dose 400 MG; Start 05/05/16 at 21:00 Acetaminophen/ Hydrocodone Bitart ([place] (10/325)) 2 tab Q4H PRN PO PAIN Last administered on 05/06/16 08:46; Admin Dose 2 TAB; Start 05/05/16 at 14:00 CATE GIBBONS MD May 06, 2016 11:56
[2016-05-06] MEDS: DIGOXIN 0.25 MG TAB PO SCH (12:12)
--- NOTE | 2016-05-06 16:53 | PN ---
DATE: SUBJECTIVE: The patient is sleeping and arousable, but does not wish to discuss. PHYSICAL EXAMINATION: VITAL SIGNS: Temperature 98.7, pulse 102, blood pressure 124/69, oxygen saturation is 97%. LUNGS: Clear. CARDIAC: Regular rate and rhythm. ABDOMEN: Obese and soft. EXTREMITIES: Reveal no edema. CURRENT MEDICATIONS: 1. Benazepril 2. Carvedilol 12.5. 3. Xarelto 4. Digoxin. 5. Nebulizers. 6. Furosemide 40 mg daily. IMPRESSION/PLAN: Overall, the patient's heart rate seemed better controlled. We will continue curr ent regimen. At this time, she is on anticoagulation for atrial fibrillation. Dictated By: LASHONDA RASMUSSEN/NAGA Conf#: [id number] DID#: [id number]
[2016-05-06] MEDS: RIVAROXABAN 20 MG TABLET PO SCH (17:31)
[2016-05-06] MEDS: MONTELUKAST 10 MG TAB PO SCH (20:12)
[2016-05-06] MEDS: LORAZEPAM 1 MG TAB PO PRN (21:58)
[2016-05-06] MEDS: INSULIN GLARGINE [LANtus] 3 ML PEN SC SCH (21:59)
[2016-05-07] VITALS (10 sets, daily range): BP systolic 116–126; BP diastolic 52–72; PULSE 74–100; RESP 18–19
[2016-05-07] MEDS: HYDROCODONE/APAP (10/325) TAB PO PRN ×2 (02:18→08:34)
[2016-05-07] MEDS: FUROSEMIDE 40 MG TAB PO SCH (06:00)
[2016-05-07] MEDS: INSULIN ASPART [NOVOLOG] 3 ML PEN SC SCH ×4 (08:00→21:00)
[2016-05-07] MEDS: TIOTROPIUM 18 MCG CAPSULE INHA DEV INH SCH (08:30)
[2016-05-07] MEDS: MAGNESIUM OXIDE 400 MG TAB PO SCH ×2 (08:30→21:51)
[2016-05-07] MEDS: hydrOXYzine HCL 25 MG TAB PO PRN ×2 (08:32→22:08)
[2016-05-07] MEDS: SALMETEROL/FLUTICASONE 250/50 INHA INH SCH ×2 (08:47→21:50)
[2016-05-07] MEDS ORDERED: FUROSEMIDE 40 MG TAB PO SCH (09:00)
[2016-05-07] MEDS ORDERED: BENAZEPRIL 10 MG TAB PO SCH (09:00)
[2016-05-07 09:09] LABS: BASOPHILS % 0.3 % (0.0-2.0); EOSINOPHILS # 0.3 10^3/ul (0.0-0.5); EOSINOPHILS % 4.5 % (0.0-7.0); HEMATOCRIT 36.4 % (37.0-47.0); HEMOGLOBIN 11.9 g/dl (12.0-16.0); LYMPHOCYTES # 1.1 10^3/ul (0.8-2.9); LYMPHOCYTES % 18.2 % (15.0-51.0); MEAN CORPUSCULAR HEMOGLOBIN 29.5 pg (29.0-33.0); MEAN CORPUSCULAR HGB CONC 32.6 g/dl (32.0-37.0); MEAN CORPUSCULAR VOLUME 90.6 fl (82.0-101.0); MEAN PLATELET VOLUME 8.5 fl (7.4-10.4); MONOCYTE # 0.5 10^3/ul (0.3-0.9); NEUTROPHIL # 4.2 10^3/ul (1.6-7.5); PLATELET COUNT 207 10^3/UL (140-440); RED BLOOD COUNT 4.02 10^6/ul (4.20-5.40); RED CELL DISTRIBUTION WIDTH 20.5 % (11.5-14.5); UNCORRECTED WBC 6.1 10^3/ul (4.8-10.8); WHITE BLOOD COUNT 6.1 10^3/ul (4.8-10.8)
[2016-05-07 09:14] LABS: CONDITION 1; LH ANALYZER COMMENTS 1
[2016-05-07 09:20] LABS: INR 2.56; PROTIME 27.8 Sec (12.2-14.2); PT RATIO 2.2
[2016-05-07 09:21] LABS: PARTIAL THROMBOPLASTIN TIME 38.9 Sec (25.0-35.0)
[2016-05-07 09:44] LABS: POTASSIUM 5.7 mmol/L (3.5-5.1)
[2016-05-07 09:47] LABS: CREATININE 1.36 mg/dl (0.44-1.00)
[2016-05-07] MEDS: DIGOXIN 0.25 MG TAB PO SCH (12:21)
--- NOTE | 2016-05-07 16:04 | PN ---
Date/Time of Note Date/Time of Note DATE: 05/07/16 TIME: 15:34 Assessment/Plan VTE Prophylaxis VTE Prophylaxis Intervention: other Lines/Catheters IV Catheter Type (from [facility]): Peripheral IV Urinary Cath still in place: No Assessment/Plan Chief Complaint/Hosp Course 1. Atrial fibrillation with RVR- now stable - on coreg for rate control, Cardizem has been stopped due to low EF 2. Cardiomyopathy with Systolic Dysfunction Ejection Fraction of 20%. - Resume benazepril, continue to hold spironolactone due to hyperk on admission , on Coreg 3. Essential Hypertension: BP now in lower side on Cardizem gtt. Will restart home meds as needed 4. Hx of COPD: - Cont Advair, Spiriva, Bronchodilators. Oxygen and Steroid as needed 6. Hx of Pulmonary hypertension: cont meds 7. Type 2 diabetes mellitus, poorly controlled - Insulin while in house 8. .Substance abuse: last meth use was 2 days ago - Advanced about discontinuation 9. Acute Encephalopathy 2/2 Drug use -monitor 10. Dermatitis -s/p treatment for Scabies PPx- Xarelto Problems: Subjective 24 Hr Interval Summary Constitutional: disoriented Exam/Review of Systems Vital Signs Vitals Vital Signs Date Time Temp Pulse Resp B/P Pulse Ox O2 Delivery O2 Flow Rate FiO2 05/07/16 15:04 89 05/07/16 12:01 97.1 19 122/69 97 05/07/16 07:37 Nasal Cannula 2.0 Intake and Output 05/06/16 05/06/16 05/07/16 15:00 23:00 07:00 Intake Total 600 ml Balance 600 ml Exam Psych: confusion Respiratory: clear to auscultation Cardiovascular: regular rate and rhythm Gastrointestinal: soft, No distended Musculoskeletal: nl extremities to inspection Results Result Diagram: 05/07/16 0835 05/07/16 0630 Results 24 hrs Laboratory Tests Test 05/06/16 17:29 05/06/16 21:56 05/07/16 06:30 05/07/16 08:23 Bedside Glucose 78 80 81 Anion Gap 17 H Blood Urea Nitrogen 34 #H Calcium Level 9.0 Carbon Dioxide Level 27 Chloride Level 94 L Creatinine 1.36 H Glucose Level 63 #L Potassium Level 5.7 H Sodium Level 132 L Test 05/07/16 08:35 05/07/16 12:19 Activated Partial Thromboplast Time 38.9 H Basophils # 0.0 Basophils % 0.3 Blood Morphology Comment Eosinophils # 0.3 Eosinophils % 4.5 Hematocrit 36.4 L Hemoglobin 11.9 L INR International Normalized Ratio 2.56 Lymphocytes # 1.1 Lymphocytes % 18.2 Mean Corpuscular Hemoglobin 29.5 Mean Corpuscular Hemoglobin Concent 32.6 Mean Corpuscular Volume 90.6 Mean Platelet Volume 8.5 Monocytes # 0.5 Monocytes % 8.0 Neutrophils # 4.2 Neutrophils % 69.0 Nucleated Red Blood Cells # 0.0 Nucleated Red Blood Cells % 0.0 Platelet Count 207 # Prothrombin Time 27.8 #H Prothrombin Time Ratio 2.2 Red Blood Count 4.02 L Red Cell Distribution Width 20.5 H White Blood Count 6.1 Bedside Glucose 111 Medications Medications Current Medications Acetaminophen (Tylenol Tab) 650 mg Q6H PRN PO PAIN AND OR ELEVATED TEMP; Start 05/04/16 at 00:00 Acetaminophen/ Hydrocodone Bitart ([place] (10/325)) 1 tab Q4H PRN PO PAIN Last administered on 05/05/16 12:38; Admin Dose 1 TAB; Start 05/04/16 at 00:00 Diagnostic Test (Pha) (Accucheck) 1 ea 02 XX ; Start 05/04/16 at 02:00 Digoxin (Digoxin) 0.25 mg DAILY@13 PO Last administered on 05/07/16 12:21; Admin Dose 0.25 MG; Start 05/04/16 at 13:00 Montelukast Sodium (Singulair) 10 mg HS PO Last administered on 05/06/16 20:12 ; Admin Dose 10 MG; Start 05/04/16 at 21:00 Salmeterol Xinafoate/ Fluticasone (Advair 250/50 Diskus) 1 inh BID INH Last administered on 05/07/16 08:47; Admin Dose 1 INH; Start 05/04/16 at 09:00 Tiotropium [place] (Spiriva) 1 inh DAILY INH Last administered on 05/07/16 08: 30; Admin Dose 1 INH; Start 05/04/16 at 09:00 Miscellaneous Information 1 ea NOTE XX ; Start 05/04/16 at 00:30 Glucose (Glutose) 15 gm Q15M PRN PO DECREASED GLUCOSE; Start 05/04/16 at 00:30 Glucose (Glutose) 22.5 gm Q15M PRN PO DECREASED GLUCOSE; Start 05/04/16 at 00: 30 Dextrose (D50w Syringe) 25 ml Q15M PRN IV DECREASED GLUCOSE; Start 05/04/16 at 00:30 Dextrose (D50w Syringe) 50 ml Q15M PRN IV DECREASED GLUCOSE; Start 05/04/16 at 00:30 Glucagon (Glucagen) 1 mg Q15M PRN IM DECREASED GLUCOSE; Start 05/04/16 at 00:30 Glucose (Glutose) 15 gm Q15M PRN BUCCAL DECREASED GLUCOSE; Start 05/04/16 at 00 :30 Insulin Glargine (Lantus) 10 unit QHS SC Last administered on 05/06/16 21:59; Admin Dose 10 UNIT; Start 05/04/16 at 01:00 Furosemide (Lasix) 40 mg DAILY@06 PO Last administered on 05/07/16 06:00; Admin Dose 40 MG; Start 05/04/16 at 06:00 Ondansetron HCl (Zofran Inj) 4 mg Q6H PRN IV NAUSEA AND/OR VOMITING Last administered on 05/04/16 01:47; Admin Dose 4 MG; Start 05/04/16 at 02:00 Morphine Sulfate (morphine) 3 mg Q4H PRN IV PAIN LEVEL 7-10 Last administered on 05/04/16 09:27; Admin Dose 3 MG; Start 05/04/16 at 03:30 Lorazepam (Ativan) 1 mg Q4 PRN PO ANXIETY Last administered on 05/06/16 21:58 ; Admin Dose 1 MG; Start 05/04/16 at 14:30 Hydroxyzine HCl (Atarax) 25 mg TID PRN PO ITCHING Last administered on 08:32; Admin Dose 25 MG; Start 05/04/16 at 16:00 Carvedilol (Coreg) 12.5 mg BID PO Last administered on 05/07/16 08:32; Admin Dose 12.5 MG; Start 05/05/16 at 10:30 Magnesium Oxide (Mag-Ox 400) 400 mg BID PO Last administered on 05/07/16 08:30 ; Admin Dose 400 MG; Start 05/05/16 at 21:00 Acetaminophen/ Hydrocodone Bitart ([place] (10/325)) 2 tab Q4H PRN PO PAIN Last administered on 05/07/16 08:34; Admin Dose 2 TAB; Start 05/05/16 at 14:00 Benazepril HCl (Lotensin) 10 mg DAILY PO Last administered on 05/07/16 08:32; Admin Dose 10 MG; Start 05/07/16 at 09:00 MAURILIO AMEZQUITA May 07, 2016 15:44
[2016-05-07] MEDS ORDERED: MAGNESIUM SULFATE 4 GM/100 ML 100 ML IVPB ONE (17:00)
[2016-05-07] MEDS: RIVAROXABAN 20 MG TABLET PO SCH (18:21)
[2016-05-07] MEDS: INSULIN GLARGINE [LANtus] 3 ML PEN SC SCH (21:00)
--- NOTE | 2016-05-07 21:33 | PN ---
DATE: 05/07/2016 CARDIOLOGY FOLLOWUP SUBJECTIVE: Discussed with the staff, discussed with the patient. The patient is in atrial fibrill ation. Heart rate under good control. The patient says she is not feeling well. When asked to spe christopher, said it was because she has not had a bowel movement. Denies any chest pain or pressure to me . Denies PND, orthopnea to me. MEDICATIONS: Reviewed. PHYSICAL EXAMINATION: VITAL SIGNS: Temperature 98.7, heart rate of 95, blood pressure 116/52, respiration rate of 19, sat urating 97%. HEENT: Normocephalic, atraumatic. Obese female. Pupils are equal. CARDIOVASCULAR: Irregularly irregular. Systolic murmur. PULMONARY: No wheezes and no rhonchi. GASTROINTESTINAL: Soft, nontender, obese. EXTREMITIES: With trivial lower extremity edema. NEUROLOGIC: Awake, responds appropriately. LABORATORY: Sodium 132, potassium 5.7, BUN of 34, creatinine 1.36, glucose of 63. ASSESSMENT AND PLAN: 1. Congestive heart failure, acute on chronic, secondary to severe systolic dysfunction, currently compensated. 2. Atrial fibrillation with rapid ventricular response. Heart rate better controlled. 3. 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 4. History of drug use including methamphetamine use. 5. Hypertension. 6. Hyperkalemia. 7. Elevated LFTs. 8. History of anxiety. RECOMMENDATIONS: I will continue with the Coreg and digoxin. Will discontinue SLIM inhibitors due t o severe hyperkalemia. Anticoagulation will be continued. Discharge planning as per internal medic ine. Anticipate in the next day or so. Dictated By: ABDI RASMUSSEN MD AV/NTS Conf#: [id number] DID#: [id number] CC: MAURILIO AMEZQUITA MD; NATHAN DE JESUS MD;*End*
[2016-05-07] MEDS: MONTELUKAST 10 MG TAB PO SCH (21:51)
[2016-05-07] MEDS: LORAZEPAM 1 MG TAB PO PRN (22:08)
[2016-05-08] VITALS (10 sets, daily range): BP systolic 109–168; BP diastolic 55–112; PULSE 67–96; RESP 16–20
[2016-05-08] MEDS: ACCUCHECK XX SCH (02:00)
[2016-05-08] MEDS: HYDROCODONE/APAP (10/325) TAB PO PRN ×4 (02:23→20:32)
[2016-05-08] MEDS: ALBUTEROL/IPRATROPIUM (NEB) 3 ML AMP HHN PRN (02:53)
[2016-05-08] MEDS: LORAZEPAM 1 MG TAB PO PRN ×2 (04:05→22:05)
[2016-05-08] MEDS: FUROSEMIDE 40 MG TAB PO SCH (05:56)
[2016-05-08 07:36] LABS: BASOPHILS % 0.6 % (0.0-2.0); EOSINOPHILS # 0.3 10^3/ul (0.0-0.5); HEMATOCRIT 37.3 % (37.0-47.0); HEMOGLOBIN 12.2 g/dl (12.0-16.0); LYMPHOCYTES # 0.9 10^3/ul (0.8-2.9); LYMPHOCYTES % 15.9 % (15.0-51.0); MEAN CORPUSCULAR HEMOGLOBIN 29.4 pg (29.0-33.0); MEAN CORPUSCULAR HGB CONC 32.7 g/dl (32.0-37.0); MEAN CORPUSCULAR VOLUME 90.1 fl (82.0-101.0); MEAN PLATELET VOLUME 8.5 fl (7.4-10.4); MONOCYTE # 0.5 10^3/ul (0.3-0.9); NEUTROPHIL # 4.1 10^3/ul (1.6-7.5); NEUTROPHILS % 69.5 % (39.0-77.0); PLATELET COUNT 212 10^3/UL (140-440); RED BLOOD COUNT 4.14 10^6/ul (4.20-5.40); RED CELL DISTRIBUTION WIDTH 20.2 % (11.5-14.5); UNCORRECTED WBC 5.9 10^3/ul (4.8-10.8); WHITE BLOOD COUNT 5.9 10^3/ul (4.8-10.8)
[2016-05-08 07:58] LABS: CONDITION 1; LH ANALYZER COMMENTS 1
[2016-05-08] MEDS: INSULIN ASPART [NOVOLOG] 3 ML PEN SC SCH ×4 (08:00→21:00)
[2016-05-08 08:16] LABS: POTASSIUM 4.9 mmol/L (3.5-5.1)
[2016-05-08 08:18] LABS: CREATININE 1.06 mg/dl (0.44-1.00)
[2016-05-08 08:19] LABS: MAGNESIUM 1.6 mg/dl (1.7-2.5)
[2016-05-08] MEDS: MAGNESIUM OXIDE 400 MG TAB PO SCH ×2 (09:36→20:31)
[2016-05-08] MEDS: TIOTROPIUM 18 MCG CAPSULE INHA DEV INH SCH (09:37)
[2016-05-08] MEDS: SALMETEROL/FLUTICASONE 250/50 INHA INH SCH ×2 (09:37→20:32)
[2016-05-08] MEDS: hydrOXYzine HCL 25 MG TAB PO PRN ×2 (10:07→15:45)
[2016-05-08] MEDS: DIGOXIN 0.25 MG TAB PO SCH (14:04)
--- NOTE | 2016-05-08 15:02 | PN ---
Date/Time of Note Date/Time of Note DATE: 05/08/16 TIME: 15:01 Assessment/Plan VTE Prophylaxis VTE Prophylaxis Intervention: other Lines/Catheters IV Catheter Type (from [facility]): Peripheral IV Urinary Cath still in place: No Assessment/Plan Chief Complaint/Hosp Course 1. Atrial fibrillation with RVR- now stable - on coreg for rate control, Cardizem has been stopped due to low EF 2. Cardiomyopathy with Systolic Dysfunction Ejection Fraction of 20%. - Resume benazepril, continue to hold spironolactone due to hyperk on admission , on Coreg 3. Essential Hypertension-stable 4. Hx of COPD: - Cont Advair, Spiriva, Bronchodilators. Oxygen and Steroid as needed 6. Hx of Pulmonary hypertension: cont meds 7. Type 2 diabetes mellitus, poorly controlled - Insulin while in house 8. .Substance abuse: last meth use was several days ago - SW consult 9. Acute Encephalopathy 2/2 Drug use -monitor, SW consult 10. Dermatitis -s/p treatment for Scabies PPx- Xarelto Problems: Subjective 24 Hr Interval Summary Constitutional: disoriented Exam/Review of Systems Vital Signs Vitals Vital Signs Date Time Temp Pulse Resp B/P Pulse Ox O2 Delivery O2 Flow Rate FiO2 05/08/16 12:23 83 05/08/16 11:49 97.4 20 111/70 98 05/08/16 02:54 21 05/07/16 20:27 Nasal Cannula 2.0 Intake and Output 05/07/16 05/07/16 05/08/16 15:00 23:00 07:00 Intake Total 360 ml 400 ml Balance 360 ml 400 ml Exam Psych: confusion Respiratory: clear to auscultation Cardiovascular: regular rate and rhythm Gastrointestinal: soft, No distended Musculoskeletal: nl extremities to inspection Results Result Diagram: 05/08/16 0719 05/08/16 0719 Results 24 hrs Laboratory Tests Test 05/07/16 18:21 05/07/16 20:32 05/08/16 07:19 05/08/16 07:55 Bedside Glucose 175 170 68 L Anion Gap 15 Basophils # 0.0 Basophils % 0.6 Blood Morphology Comment Blood Urea Nitrogen 35 H Calcium Level 9.0 Carbon Dioxide Level 30 Chloride Level 93 L Creatinine 1.06 H Eosinophils # 0.3 Eosinophils % 5.0 Glucose Level 65 L Hematocrit 37.3 Hemoglobin 12.2 Lymphocytes # 0.9 Lymphocytes % 15.9 Magnesium Level 1.6 L Mean Corpuscular Hemoglobin 29.4 Mean Corpuscular Hemoglobin Concent 32.7 Mean Corpuscular Volume 90.1 Mean Platelet Volume 8.5 Monocytes # 0.5 Monocytes % 9.0 Neutrophils # 4.1 Neutrophils % 69.5 Nucleated Red Blood Cells # 0.0 Nucleated Red Blood Cells % 0.0 Platelet Count 212 Potassium Level 4.9 Red Blood Count 4.14 L Red Cell Distribution Width 20.2 H Sodium Level 133 L White Blood Count 5.9 Test 05/08/16 11:58 Bedside Glucose 108 Medications Medications Current Medications Acetaminophen (Tylenol Tab) 650 mg Q6H PRN PO PAIN AND OR ELEVATED TEMP Last administered on 05/08/16 04:05; Admin Dose 650 MG; Start 05/04/16 at 00:00 Acetaminophen/ Hydrocodone Bitart ([place] (10/325)) 1 tab Q4H PRN PO PAIN Last administered on 05/08/16 10:07; Admin Dose 1 TAB; Start 05/04/16 at 00:00 Diagnostic Test (Pha) (Accucheck) 1 ea 02 XX ; Start 05/04/16 at 02:00 Digoxin (Digoxin) 0.25 mg DAILY@13 PO Last administered on 05/08/16 14:04; Admin Dose 0.25 MG; Start 05/04/16 at 13:00 Montelukast Sodium (Singulair) 10 mg HS PO Last administered on 05/07/16 21:51 ; Admin Dose 10 MG; Start 05/04/16 at 21:00 Salmeterol Xinafoate/ Fluticasone (Advair 250/50 Diskus) 1 inh BID INH Last administered on 05/08/16 09:37; Admin Dose 1 INH; Start 05/04/16 at 09:00 Tiotropium [place] (Spiriva) 1 inh DAILY INH Last administered on 05/08/16 09: 37; Admin Dose 1 INH; Start 05/04/16 at 09:00 Miscellaneous Information 1 ea NOTE XX ; Start 05/04/16 at 00:30 Glucose (Glutose) 15 gm Q15M PRN PO DECREASED GLUCOSE; Start 05/04/16 at 00:30 Glucose (Glutose) 22.5 gm Q15M PRN PO DECREASED GLUCOSE; Start 05/04/16 at 00: 30 Dextrose (D50w Syringe) 25 ml Q15M PRN IV DECREASED GLUCOSE; Start 05/04/16 at 00:30 Dextrose (D50w Syringe) 50 ml Q15M PRN IV DECREASED GLUCOSE; Start 05/04/16 at 00:30 Glucagon (Glucagen) 1 mg Q15M PRN IM DECREASED GLUCOSE; Start 05/04/16 at 00:30 Glucose (Glutose) 15 gm Q15M PRN BUCCAL DECREASED GLUCOSE; Start 05/04/16 at 00 :30 Insulin Glargine (Lantus) 10 unit QHS SC Last administered on 05/07/16 21:00; Admin Dose 10 UNIT; Start 05/04/16 at 01:00 Furosemide (Lasix) 40 mg DAILY@06 PO Last administered on 05/08/16 05:56; Admin Dose 40 MG; Start 05/04/16 at 06:00 Ondansetron HCl (Zofran Inj) 4 mg Q6H PRN IV NAUSEA AND/OR VOMITING Last administered on 05/04/16 01:47; Admin Dose 4 MG; Start 05/04/16 at 02:00 Morphine Sulfate (morphine) 3 mg Q4H PRN IV PAIN LEVEL 7-10 Last administered on 05/04/16 09:27; Admin Dose 3 MG; Start 05/04/16 at 03:30 Lorazepam (Ativan) 1 mg Q4 PRN PO ANXIETY Last administered on 05/08/16 04:05 ; Admin Dose 1 MG; Start 05/04/16 at 14:30 Hydroxyzine HCl (Atarax) 25 mg TID PRN PO ITCHING Last administered on 10:07; Admin Dose 25 MG; Start 05/04/16 at 16:00 Carvedilol (Coreg) 12.5 mg BID PO Last administered on 05/08/16 09:37; Admin Dose 12.5 MG; Start 05/05/16 at 10:30 Magnesium Oxide (Mag-Ox 400) 400 mg BID PO Last administered on 05/08/16 09:36 ; Admin Dose 400 MG; Start 05/05/16 at 21:00 Acetaminophen/ Hydrocodone Bitart ([place] (10/325)) 2 tab Q4H PRN PO PAIN Last administered on 05/08/16 02:23; Admin Dose 2 TAB; Start 05/05/16 at 14:00 MAURILIO AMEZQUITA May 08, 2016 15:02
[2016-05-08] MEDS: RIVAROXABAN 20 MG TABLET PO SCH (17:27)
--- NOTE | 2016-05-08 17:30 | PN ---
DATE: 05/08/2016 Cardiology followup. The patient remains in atrial fibrillation. Heart rate has been better contro lled. The patient has been refused telemetry. Denies any chest pain or pressure to me. Does answe r to me. MEDICATIONS: Reviewed. PHYSICAL EXAMINATION: VITAL SIGNS: Temperature 98.4, heart rate of 83, blood pressure ranging from 111 to 160/70 to 112, respiratory rate of 20. HEENT: Normocephalic, atraumatic. Pupils are equal. CARDIOVASCULAR: Irregularly irregular. PULMONARY: With no wheezes. GASTROINTESTINAL: Soft, obese, nontender. EXTREMITIES: Trivial edema. NEUROLOGIC: Drowsy and sedated, does not answer questions. LABORATORY: WBC of 5.9, hemoglobin 12.2, platelets of 212. Sodium 133, potassium 4.9, BUN of 35, c reatinine 1.06, glucose of 45. ASSESSMENT AND PLAN: 1. Congestive heart failure. 2. Atrial fibrillation. 3. Severe dilated cardiomyopathy. 4. History of drug abuse including methamphetamine use. 5. Hypertension. 6. Hyperkalemia. 7. Elevated LFTs. 8. Severe anxiety. 9. Rash to rule out scabies. RECOMMENDATIONS: We will continue with the current cardiac care. SLIM inhibitor was discontinued du e to her hyperkalemia and renal failure. Coreg will be continued. Anticoagulation will be continue d. Digoxin will be continued. We will order digoxin level for tomorrow to rule out digoxin toxicit y as well. Discharge planning as per internal medicine. Dictated By: ABDI RASMUSSEN MD AV/NAGA Conf#: [id number] DID#: [id number] CC: MAURILIO AMEZQUITA MD;*End*
[2016-05-08] MEDS: MONTELUKAST 10 MG TAB PO SCH (20:32)
[2016-05-08] MEDS: INSULIN GLARGINE [LANtus] 3 ML PEN SC SCH (21:00)
[2016-05-08] MEDS: morphine 4 MG/ML VIAL IV PRN (22:23)
[2016-05-09 01:12] VITALS: BP 96/68; RESP 16
[2016-05-09] MEDS: ACCUCHECK XX SCH (01:30)
[2016-05-09 05:01] VITALS: BP 129/70; RESP 16
[2016-05-09] MEDS: FUROSEMIDE 40 MG TAB PO SCH (05:46)
[2016-05-09] MEDS: HYDROCODONE/APAP (10/325) TAB PO PRN ×2 (06:01→10:00)
[2016-05-09 07:45] VITALS: BP 112/83; RESP 20
[2016-05-09] MEDS: INSULIN ASPART [NOVOLOG] 3 ML PEN SC SCH ×4 (08:00→21:00)
[2016-05-09 09:02] LABS: POTASSIUM 4.6 mmol/L (3.5-5.1)
[2016-05-09 09:05] LABS: CREATININE 0.98 mg/dl (0.44-1.00)
[2016-05-09 09:06] LABS: CALCIUM 8.9 mg/dl (8.4-10.2); MAGNESIUM 1.6 mg/dl (1.7-2.5)
[2016-05-09 09:16] LABS: ALBUMIN 3.5 g/dl (3.3-4.9); POTASSIUM 4.7 mmol/L (3.5-5.1)
[2016-05-09 09:19] LABS: ALBUMIN/GLOBULIN RATIO 1.2; BILIRUBIN,INDIRECT 0.7 mg/dl (0-1.1); BILIRUBIN,TOTAL 0.7 mg/dl (0.2-1.3); CALCIUM 8.8 mg/dl (8.4-10.2); CREATININE 0.95 mg/dl (0.44-1.00); TOTAL PROTEIN 6.4 g/dl (6.1-8.1)
[2016-05-09] MEDS: TIOTROPIUM 18 MCG CAPSULE INHA DEV INH SCH (09:52)
[2016-05-09] MEDS: MAGNESIUM OXIDE 400 MG TAB PO SCH ×2 (09:53→23:15)
[2016-05-09] MEDS: SALMETEROL/FLUTICASONE 250/50 INHA INH SCH ×2 (09:57→21:00)
--- NOTE | 2016-05-09 10:22 | PN ---
DATE: 05/09/2016 CARDIOLOGY FOLLOWUP SUBJECTIVE: The patient has been agitated and confused. Has been refusing to wear the monitor. As far as we can say, she has been remaining in atrial fibrillation. Heart rate overall has been stab le, but variable. MEDICATIONS: Reviewed. PHYSICAL EXAMINATION: VITAL SIGNS: Temperature 97.5, heart rate ranging from 40s to 120s, blood pressure 112/83, respirat ory rate of 20, saturating 96%. HEENT: Normocephalic, atraumatic. Obese female. Pupils are equal. CARDIOVASCULAR: Irregularly irregular. Systolic murmur. PULMONARY: No wheezes. GASTROINTESTINAL: Soft, nontender. EXTREMITIES: Trivial edema. NEUROLOGIC: Awake. PSYCHIATRIC: Agitated. LABORATORY DATA: She has refused multiple times before. ASSESSMENT AND PLAN: 1. Atrial fibrillation. 2. Congestive heart failure. 3. Severe dilated cardiomyopathy. 4. History of drug abuse. 5. Encephalopathy. 6. Hyperkalemia. 7. Diffuse rash, rule out scabies. RECOMMENDATIONS: The patient has been very noncompliant with care. For now, we will continue with the current cardiac care. Labs have been ordered to be done if the patient allows the staff to do s o. Beta avery and digoxin will be continued. Dictated By: ABDI RASMUSSEN MD AV/NAGA Conf#: [id number] DID#: [id number] CC: MAURILIO AMEZQUITA MD;*End*
--- NOTE | 2016-05-09 11:04 | RADRPT ---
PROCEDURE: CT Brain without contrast. CLINICAL INDICATION: Neurologic deficit TECHNIQUE: A CT of the brain was performed on multidetector high-resolution CT scanner utilizing a xial sections from the skull base through the vertex without contrast. One or more of the following dose reduction techniques were used: Automated exposure control, Adjustment of the mA and/or kV acc ording to patient size, and/or use of iterative reconstruction technique. DOSE: CTDI = 42 mGy and the DLP = 720 mGy-cm. COMPARISON: Correlation brain MRI 05/11/2012 FINDINGS: No acute intracranial hemorrhage, significant mass effect or midline shift. Patchy hypoattenuation o f the cerebral white matter is compatible with mild chronic microvascular ischemic changes. Cortical encephalomalacia of the left frontal lobe, left frontal operculum and left anterior insula is new s peace 05/11/2012 but chronic in appearance. Atherosclerotic calcifications of the cavernous segments of the internal carotid arteries are seen. Prominence of the cortical sulci and ventricles are relat ed to mild cerebral volume loss. No significant opacification of the visualized paranasal sinuses o r mastoids. IMPRESSION: No acute intracranial hemorrhage or significant mass effect. Mild chronic microvascular disease and intracranial atherosclerosis. Cortical encephalomalacia of the left frontal lobe, left frontal operculum and left anterior insula is new since 05/11/2012 but chronic in appearance and likely related to interval left MCA territory infarct.. RPTAT: AA .Pantera Marin MD, MD Date Time Electronically viewed and signed by .Pantera Marin MD, on 05/09/2016 11:04 .T/
[2016-05-09 11:41] VITALS: BP 102/64; RESP 20
[2016-05-09] MEDS: DIGOXIN 0.25 MG TAB PO SCH ×2 (13:00→14:44)
[2016-05-09 15:42] VITALS: BP 100/60; RESP 18
--- NOTE | 2016-05-09 15:45 | PN ---
Date/Time of Note Date/Time of Note DATE: 05/09/16 TIME: 15:42 Assessment/Plan VTE Prophylaxis VTE Prophylaxis Intervention: other Lines/Catheters IV Catheter Type (from [facility]): Peripheral IV Urinary Cath still in place: No Assessment/Plan Chief Complaint/Hosp Course 1. Atrial fibrillation with RVR- now stable - on coreg for rate control, Cardizem has been stopped due to low EF, continue Xarelto 2. Cardiomyopathy with Systolic Dysfunction Ejection Fraction of 20%. - cont Coreg 3. Essential Hypertension-stable 4. Hx of COPD: - Cont Advair, Spiriva, Bronchodilators. Oxygen and Steroid as needed 6. Hx of Pulmonary hypertension: cont meds 7. Type 2 diabetes mellitus, poorly controlled - Insulin while in house 8. .Substance abuse: last meth use was several days ago - SW consult 9. Acute Encephalopathy 04/26 CVA -CT Brain shows L MCA infarct -CM for SNF placement 10. Dermatitis -s/p treatment for Scabies PPx- Xarelto Problems: Subjective 24 Hr Interval Summary Constitutional: disoriented Exam/Review of Systems Vital Signs Vitals Vital Signs Date Time Temp Pulse Resp B/P Pulse Ox O2 Delivery O2 Flow Rate FiO2 05/09/16 11:41 97.8 70 20 102/64 92 05/08/16 17:31 2.0 05/08/16 02:54 21 05/07/16 20:27 Nasal Cannula Intake and Output 05/08/16 05/08/16 05/09/16 15:00 23:00 07:00 Intake Total 900 ml Balance 900 ml Exam Psych: confusion Respiratory: clear to auscultation Cardiovascular: regular rate and rhythm Gastrointestinal: soft, No distended Musculoskeletal: nl extremities to inspection Results Result Diagram: 05/08/16 0719 05/09/16 0840 Results 24 hrs Laboratory Tests Test 05/09/16 08:39 05/09/16 08:40 05/09/16 11:53 Bedside Glucose 87 103 Alanine Aminotransferase (ALT/SGPT) 88 H Albumin 3.5 Albumin/Globulin Ratio 1.20 Alkaline Phosphatase 130 H Anion Gap 15 Aspartate Amino Transf (AST/SGOT) 60 H Blood Urea Nitrogen 33 H Calcium Level 8.8 Carbon Dioxide Level 29 Chloride Level 94 L Creatinine 0.95 Digoxin Level 1.3 Direct Bilirubin 0.00 Globulin 2.90 Glucose Level 88 Indirect Bilirubin 0.7 Magnesium Level 1.6 L Potassium Level 4.7 Sodium Level 133 L Total Bilirubin 0.7 Total Protein 6.4 Medications Medications Current Medications Acetaminophen (Tylenol Tab) 650 mg Q6H PRN PO PAIN AND OR ELEVATED TEMP Last administered on 05/08/16 04:05; Admin Dose 650 MG; Start 05/04/16 at 00:00 Acetaminophen/ Hydrocodone Bitart ([place] (10/325)) 1 tab Q4H PRN PO PAIN Last administered on 05/08/16 20:32; Admin Dose 1 TAB; Start 05/04/16 at 00:00 Diagnostic Test (Pha) (Accucheck) 1 ea 02 XX ; Start 05/04/16 at 02:00 Digoxin (Digoxin) 0.25 mg DAILY@13 PO Last administered on 05/09/16 14:44; Admin Dose 0.25 MG; Start 05/04/16 at 13:00 Montelukast Sodium (Singulair) 10 mg HS PO Last administered on 05/08/16 20:32 ; Admin Dose 10 MG; Start 05/04/16 at 21:00 Salmeterol Xinafoate/ Fluticasone (Advair 250/50 Diskus) 1 inh BID INH Last administered on 05/09/16 09:57; Admin Dose 1 INH; Start 05/04/16 at 09:00 Tiotropium [place] (Spiriva) 1 inh DAILY INH Last administered on 05/09/16 09: 52; Admin Dose 1 INH; Start 05/04/16 at 09:00 Miscellaneous Information 1 ea NOTE XX ; Start 05/04/16 at 00:30 Glucose (Glutose) 15 gm Q15M PRN PO DECREASED GLUCOSE; Start 05/04/16 at 00:30 Glucose (Glutose) 22.5 gm Q15M PRN PO DECREASED GLUCOSE; Start 05/04/16 at 00: 30 Dextrose (D50w Syringe) 25 ml Q15M PRN IV DECREASED GLUCOSE; Start 05/04/16 at 00:30 Dextrose (D50w Syringe) 50 ml Q15M PRN IV DECREASED GLUCOSE; Start 05/04/16 at 00:30 Glucagon (Glucagen) 1 mg Q15M PRN IM DECREASED GLUCOSE; Start 05/04/16 at 00:30 Glucose (Glutose) 15 gm Q15M PRN BUCCAL DECREASED GLUCOSE; Start 05/04/16 at 00 :30 Insulin Glargine (Lantus) 10 unit QHS SC Last administered on 05/07/16 21:00; Admin Dose 10 UNIT; Start 05/04/16 at 01:00 Furosemide (Lasix) 40 mg DAILY@06 PO Last administered on 05/09/16 05:46; Admin Dose 40 MG; Start 05/04/16 at 06:00 Ondansetron HCl (Zofran Inj) 4 mg Q6H PRN IV NAUSEA AND/OR VOMITING Last administered on 05/04/16 01:47; Admin Dose 4 MG; Start 05/04/16 at 02:00 Morphine Sulfate (morphine) 3 mg Q4H PRN IV PAIN LEVEL 7-10 Last administered on 05/08/16 22:23; Admin Dose 3 MG; Start 05/04/16 at 03:30 Lorazepam (Ativan) 1 mg Q4 PRN PO ANXIETY Last administered on 05/08/16 22:05 ; Admin Dose 1 MG; Start 05/04/16 at 14:30 Hydroxyzine HCl (Atarax) 25 mg TID PRN PO ITCHING Last administered on 15:45; Admin Dose 25 MG; Start 05/04/16 at 16:00 Carvedilol (Coreg) 12.5 mg BID PO Last administered on 05/09/16 09:53; Admin Dose 12.5 MG; Start 05/05/16 at 10:30 Magnesium Oxide (Mag-Ox 400) 400 mg BID PO Last administered on 05/09/16 09:53 ; Admin Dose 400 MG; Start 05/05/16 at 21:00 Acetaminophen/ Hydrocodone Bitart ([place] (10/325)) 2 tab Q4H PRN PO PAIN Last administered on 05/09/16 10:00; Admin Dose 2 TAB; Start 05/05/16 at 14:00 MAURILIO AMEZQUITA May 09, 2016 15:45
[2016-05-09] MEDS: hydrOXYzine HCL 25 MG TAB PO PRN (16:07)
[2016-05-09] MEDS: RIVAROXABAN 20 MG TABLET PO SCH (17:38)
[2016-05-09 20:15] VITALS: BP 93/56; RESP 18
[2016-05-09] MEDS: MONTELUKAST 10 MG TAB PO SCH (23:15)
[2016-05-09] MEDS: INSULIN GLARGINE [LANtus] 3 ML PEN SC SCH (23:23)
[2016-05-10] MEDS: morphine 4 MG/ML VIAL IV PRN ×4 (00:32→23:03)
[2016-05-10] MEDS: ACCUCHECK XX SCH (02:00)
[2016-05-10] MEDS: LORAZEPAM 1 MG TAB PO PRN (02:58)
[2016-05-10] MEDS: hydrOXYzine HCL 25 MG TAB PO PRN ×2 (04:04→09:01)
[2016-05-10 04:40] VITALS: BP 99/56; PULSE 95; RESP 20
[2016-05-10] MEDS: FUROSEMIDE 40 MG TAB PO SCH (05:32)
[2016-05-10] MEDS: INSULIN ASPART [NOVOLOG] 3 ML PEN SC SCH ×4 (08:00→21:00)
[2016-05-10 08:04] VITALS: BP 97/56; RESP 19
[2016-05-10 08:16] LABS: HAAIG REFLEX REFLEX FILED
[2016-05-10 08:18] LABS: BASOPHILS % 0.4 % (0.0-2.0); EOSINOPHILS # 0.4 10^3/ul (0.0-0.5); EOSINOPHILS % 6.3 % (0.0-7.0); HEMATOCRIT 36.7 % (37.0-47.0); HEMOGLOBIN 12.1 g/dl (12.0-16.0); LYMPHOCYTES # 0.6 10^3/ul (0.8-2.9); LYMPHOCYTES % 10.9 % (15.0-51.0); MEAN CORPUSCULAR HEMOGLOBIN 29.5 pg (29.0-33.0); MEAN CORPUSCULAR HGB CONC 32.9 g/dl (32.0-37.0); MEAN CORPUSCULAR VOLUME 89.8 fl (82.0-101.0); MEAN PLATELET VOLUME 8.8 fl (7.4-10.4); MONOCYTE # 0.5 10^3/ul (0.3-0.9); MONOCYTES % 8.5 % (0.0-11.0); NEUTROPHIL # 4.3 10^3/ul (1.6-7.5); NEUTROPHILS % 73.9 % (39.0-77.0); PLATELET COUNT 239 10^3/UL (140-440); RED BLOOD COUNT 4.09 10^6/ul (4.20-5.40); RED CELL DISTRIBUTION WIDTH 19.5 % (11.5-14.5); UNCORRECTED WBC 5.8 10^3/ul (4.8-10.8); WHITE BLOOD COUNT 5.8 10^3/ul (4.8-10.8)
[2016-05-10 08:20] LABS: CONDITION 1; LH ANALYZER COMMENTS 1
[2016-05-10 08:33] LABS: ALBUMIN 3.8 g/dl (3.3-4.9)
[2016-05-10 08:34] LABS: POTASSIUM 5.1 mmol/L (3.5-5.1)
[2016-05-10 08:36] LABS: BILIRUBIN,INDIRECT 0.7 mg/dl (0-1.1); BILIRUBIN,TOTAL 0.7 mg/dl (0.2-1.3); CREATININE 0.91 mg/dl (0.44-1.00)
[2016-05-10 08:37] LABS: ALBUMIN/GLOBULIN RATIO 1.22; CALCIUM 8.8 mg/dl (8.4-10.2); MAGNESIUM 1.6 mg/dl (1.7-2.5); TOTAL PROTEIN 6.9 g/dl (6.1-8.1)
[2016-05-10] MEDS: SALMETEROL/FLUTICASONE 250/50 INHA INH SCH ×2 (09:00→21:48)
[2016-05-10] MEDS: TIOTROPIUM 18 MCG CAPSULE INHA DEV INH SCH (09:00)
[2016-05-10] MEDS: MAGNESIUM OXIDE 400 MG TAB PO SCH ×2 (09:01→21:45)
[2016-05-10 09:19] LABS: HEPATITIS B CORE ANTIBODY NEGATIVE (NEGATIVE)
--- NOTE | 2016-05-10 09:41 | PN ---
DATE: 05/10/2016 CARDIOLOGY FOLLOWUP SUBJECTIVE: The patient for now. She has refused to wear it, so telemetry has been disconti nued. She still appears to be confused. No reported chest pain or pressure. MEDICATIONS: Reviewed. PHYSICAL EXAMINATION: VITAL SIGNS: Temperature 97.8, heart of 77, blood pressure 97/56, respiratory rate of 19, saturatin g 95%. HEENT: Normocephalic, atraumatic. Obese female. Pupils are equal. CARDIOVASCULAR: Irregularly irregular. PULMONARY: With mild rhonchi at the base. GASTROINTESTINAL: Soft, obese, nontender. EXTREMITIES: With positive edema. NEUROLOGIC: Awake, but drowsy. CT of the head shows no acute intracranial hemorrhage. No significant mass. LABORATORY: Digoxin level is 1.3 as of yesterday. Sodium 133, potassium 4.7, BUN of 33, creatinine 0.95, glucose of 88. WBC of 5.8, hemoglobin 12.1, platelets of 239. ASSESSMENT AND PLAN: 1. Congestive heart failure secondary to systolic dysfunction, acute on chronic. 2. Atrial fibrillation with rapid ventricular response. 3. History of severe dilated cardiomyopathy, most likely related to drug abuse. 4. History of drug use. 5. Encephalopathy. 6. Hyperkalemia. 7. Possible scabies. RECOMMENDATIONS: I will decrease the carvedilol to 6.25 b.i.d., given her relative hypotension. Wi ll hold for a systolic blood pressure of less than 95. Digoxin will be decreased to 0.125 to avoid digoxin toxicity. Not on SLIM inhibitors or ARB due to her hyperkalemia and low blood pressure now. Anticoagulation as tolerated will be continued. Dictated By: ABDI RASMUSSEN MD AV/NAGA Conf#: [id number] DID#: [id number] CC: MAURILIO AMEZQUITA MD;*End*
[2016-05-10 11:00] VITALS: BP 99/64; RESP 19
[2016-05-10] MEDS: HYDROCODONE/APAP (10/325) TAB PO PRN (13:52)
[2016-05-10] MEDS: DIGOXIN 0.125 MG TAB PO SCH (14:05)
--- NOTE | 2016-05-10 14:57 | PN ---
Date/Time of Note Date/Time of Note DATE: 05/10/16 TIME: 14:51 Assessment/Plan VTE Prophylaxis VTE Prophylaxis Intervention: other Lines/Catheters IV Catheter Type (from Nrs): Peripheral IV Urinary Cath still in place: No Assessment/Plan Chief Complaint/Hosp Course 1. Atrial fibrillation with RVR- now stable - on coreg and Dig for rate control, continue Xarelto 2. Cardiomyopathy with Systolic Dysfunction Ejection Fraction of 20%. - cont Coreg 3. Essential Hypertension-stable 4. Hx of COPD: - Cont Advair, Spiriva, Bronchodilators. Oxygen and Steroid as needed 6. Hx of Pulmonary hypertension: cont meds 7. Type 2 diabetes mellitus, poorly controlled - Insulin while in house 8. .Substance abuse: last meth use was several days ago - SW consult 9. Acute Encephalopathy 04/26 CVA -CT Brain shows L MCA infarct -CM for SNF placement, PT eval 10. Dermatitis-possibly scabies -s/p treatment for Scabies -will do a scraping as still itching PPx- Xarelto Problems: Subjective 24 Hr Interval Summary Constitutional: disoriented Exam/Review of Systems Vital Signs Vitals Vital Signs Date Time Temp Pulse Resp B/P Pulse Ox O2 Delivery O2 Flow Rate FiO2 05/10/16 11:00 98.0 90 19 99/64 94 05/10/16 08:00 Nasal Cannula 2.0 05/08/16 02:54 21 Intake and Output 05/09/16 05/09/16 05/10/16 15:00 23:00 07:00 Intake Total 960 ml 800 ml Balance 960 ml 800 ml Exam Psych: confusion Respiratory: clear to auscultation Cardiovascular: regular rate and rhythm Gastrointestinal: soft, No distended Musculoskeletal: nl extremities to inspection Results Result Diagram: 05/10/16 0705/10/16 0730 Results 24 hrs Laboratory Tests Test 05/09/16 17:36 05/09/16 20:41 05/10/16 07:30 05/10/16 08:47 Bedside Glucose 134 156 124 Alanine Aminotransferase (ALT/SGPT) 85 H Albumin 3.8 Albumin/Globulin Ratio 1.22 Alkaline Phosphatase 146 H Anion Gap 18 H Aspartate Amino Transf (AST/SGOT) 57 H B-Type Natriuretic Peptide 5250 H Basophils # 0.0 Basophils % 0.4 Blood Morphology Comment Blood Urea Nitrogen 29 H Calcium Level 8.8 Carbon Dioxide Level 32 H Chloride Level 91 L Creatinine 0.91 Digoxin Level 1.4 Direct Bilirubin 0.00 Eosinophils # 0.4 Eosinophils % 6.3 Globulin 3.10 Glucose Level 121 Hematocrit 36.7 L Hemoglobin 12.1 Hepatitis B Core Total Antibody NEGATIVE Hepatitis B Surface Antigen NEGATIVE Hepatitis C Antibody REACTIVE H Indirect Bilirubin 0.7 Lymphocytes # 0.6 L Lymphocytes % 10.9 L Magnesium Level 1.6 L Mean Corpuscular Hemoglobin 29.5 Mean Corpuscular Hemoglobin Concent 32.9 Mean Corpuscular Volume 89.8 Mean Platelet Volume 8.8 Monocytes # 0.5 Monocytes % 8.5 Neutrophils # 4.3 Neutrophils % 73.9 Nucleated Red Blood Cells # 0.0 Nucleated Red Blood Cells % 0.0 Platelet Count 239 Potassium Level 5.1 Red Blood Count 4.09 L Red Cell Distribution Width 19.5 H Sodium Level 136 Total Bilirubin 0.7 Total Protein 6.9 White Blood Count 5.8 Test 05/10/16 11:12 Bedside Glucose 162 Medications Medications Current Medications Acetaminophen (Tylenol Tab) 650 mg Q6H PRN PO PAIN AND OR ELEVATED TEMP Last administered on 05/08/16 04:05; Admin Dose 650 MG; Start 05/04/16 at 00:00 Acetaminophen/ Hydrocodone Bitart ([place] (10/325)) 1 tab Q4H PRN PO PAIN Last administered on 05/10/16 13:52; Admin Dose 1 TAB; Start 05/04/16 at 00:00 Diagnostic Test (Pha) (Accucheck) 1 ea 02 XX ; Start 05/04/16 at 02:00 Montelukast Sodium (Singulair) 10 mg HS PO Last administered on 05/09/16 23:15 ; Admin Dose 10 MG; Start 05/04/16 at 21:00 Salmeterol Xinafoate/ Fluticasone (Advair 250/50 Diskus) 1 inh BID INH Last administered on 05/10/16 09:00; Admin Dose 1 INH; Start 05/04/16 at 09:00 Tiotropium [place] (Spiriva) 1 inh DAILY INH Last administered on 05/10/16 09: 00; Admin Dose 1 INH; Start 05/04/16 at 09:00 Miscellaneous Information 1 ea NOTE XX ; Start 05/04/16 at 00:30 Glucose (Glutose) 15 gm Q15M PRN PO DECREASED GLUCOSE; Start 05/04/16 at 00:30 Glucose (Glutose) 22.5 gm Q15M PRN PO DECREASED GLUCOSE; Start 05/04/16 at 00: 30 Dextrose (D50w Syringe) 25 ml Q15M PRN IV DECREASED GLUCOSE; Start 05/04/16 at 00:30 Dextrose (D50w Syringe) 50 ml Q15M PRN IV DECREASED GLUCOSE; Start 05/04/16 at 00:30 Glucagon (Glucagen) 1 mg Q15M PRN IM DECREASED GLUCOSE; Start 05/04/16 at 00:30 Glucose (Glutose) 15 gm Q15M PRN BUCCAL DECREASED GLUCOSE; Start 05/04/16 at 00 :30 Insulin Glargine (Lantus) 10 unit QHS SC Last administered on 05/09/16 23:23; Admin Dose 10 UNIT; Start 05/04/16 at 01:00 Furosemide (Lasix) 40 mg DAILY@06 PO Last administered on 05/09/16 05:46; Admin Dose 40 MG; Start 05/04/16 at 06:00 Ondansetron HCl (Zofran Inj) 4 mg Q6H PRN IV NAUSEA AND/OR VOMITING Last administered on 05/04/16 01:47; Admin Dose 4 MG; Start 05/04/16 at 02:00 Morphine Sulfate (morphine) 3 mg Q4H PRN IV PAIN LEVEL 7-10 Last administered on 05/10/16 11:14; Admin Dose 3 MG; Start 05/04/16 at 03:30 Lorazepam (Ativan) 1 mg Q4 PRN PO ANXIETY Last administered on 05/10/16 02:58 ; Admin Dose 1 MG; Start 05/04/16 at 14:30 Hydroxyzine HCl (Atarax) 25 mg TID PRN PO ITCHING Last administered on 09:01; Admin Dose 25 MG; Start 05/04/16 at 16:00 Magnesium Oxide (Mag-Ox 400) 400 mg BID PO Last administered on 05/10/16 09:01 ; Admin Dose 400 MG; Start 05/05/16 at 21:00 Acetaminophen/ Hydrocodone Bitart ([place] (10/325)) 2 tab Q4H PRN PO PAIN Last administered on 05/09/16 10:00; Admin Dose 2 TAB; Start 05/05/16 at 14:00 Digoxin (Digoxin) 0.125 mg DAILY@13 PO Last administered on 05/10/16 14:05; Admin Dose 0.125 MG; Start 05/10/16 at 13:00 Carvedilol (Coreg) 6.25 mg BID PO Last administered on 05/10/16 09:01; Admin Dose 6.25 MG; Start 05/10/16 at 09:00 MAURILIO AMEZQUITA May 10, 2016 14:56
[2016-05-10 15:00] VITALS: BP 95/57; RESP 19
[2016-05-10] MEDS: RIVAROXABAN 20 MG TABLET PO SCH (18:38)
[2016-05-10 20:00] VITALS: BP 111/67; PULSE 101; RESP 15; RESP 16
[2016-05-10] MEDS: INSULIN GLARGINE [LANtus] 3 ML PEN SC SCH (21:00)
[2016-05-10] MEDS: MONTELUKAST 10 MG TAB PO SCH (21:45)
[2016-05-11] VITALS: BP 107/69; PULSE 80; RESP 15; RESP 16
[2016-05-11] MEDS: ACCUCHECK XX SCH (01:27)
[2016-05-11] MEDS: HYDROCODONE/APAP (10/325) TAB PO PRN ×2 (02:05→18:05)
[2016-05-11 04:00] VITALS: BP_SYST 111; BP_SYST 156; BP_DIAS 67; BP_DIAS 85; PULSE 87; RESP 15; RESP 20
[2016-05-11] MEDS: hydrOXYzine HCL 25 MG TAB PO PRN ×3 (06:17→18:04)
[2016-05-11] MEDS: FUROSEMIDE 40 MG TAB PO SCH (06:17)
[2016-05-11 07:00] VITALS: BP 108/81; RESP 18
[2016-05-11] MEDS: INSULIN ASPART [NOVOLOG] 3 ML PEN SC SCH ×4 (07:44→20:39)
[2016-05-11] MEDS: SALMETEROL/FLUTICASONE 250/50 INHA INH SCH ×2 (09:31→20:38)
[2016-05-11] MEDS: TIOTROPIUM 18 MCG CAPSULE INHA DEV INH SCH (09:31)
[2016-05-11] MEDS: MAGNESIUM OXIDE 400 MG TAB PO SCH ×2 (09:33→20:38)
[2016-05-11] MEDS: morphine 4 MG/ML VIAL IV PRN (09:51)
[2016-05-11 11:00] VITALS: BP 92/69; RESP 19
[2016-05-11 14:42] LABS: ADD UMIC NO; URINE BILIRUBIN (Dip) NEGATIVE (NEGATIVE); URINE BLOOD (Dip) NEGATIVE (NEGATIVE); URINE COLOR LT. YELLOW (YELLOW); URINE GLUCOSE (Dip) NEGATIVE (NEGATIVE); URINE KETONES (Dip) NEGATIVE (NEGATIVE); URINE LEUKOCYTE ESTERASE (Dip) NEGATIVE (NEGATIVE); URINE NITRITE (Dip) NEGATIVE (NEGATIVE); URINE TOTAL PROTEIN (Dip) NEGATIVE (NEGATIVE); URINE UROBILINOGEN (Dip) 0.2 E.U./dL (0.1-1.0)
[2016-05-11 15:00] VITALS: BP 123/65; RESP 19
--- NOTE | 2016-05-11 15:00 | PN ---
Date/Time of Note Date/Time of Note DATE: 05/11/16 TIME: 14:58 Assessment/Plan VTE Prophylaxis VTE Prophylaxis Intervention: other Lines/Catheters IV [facility] [place] Urinary Cath still in place: No Assessment/Plan Chief Complaint/Hosp Course 1. Atrial fibrillation with RVR- now stable - on coreg and Dig for rate control, continue Xarelto 2. Cardiomyopathy with Systolic Dysfunction Ejection Fraction of 20%. - cont Coreg 3. Essential Hypertension-stable 4. Hx of COPD: - Cont Advair, Spiriva, Bronchodilators. Oxygen and Steroid as needed 6. Hx of Pulmonary hypertension: cont meds 7. Type 2 diabetes mellitus, poorly controlled - Insulin while in house 8. .Substance abuse: last meth use was several days ago - SW consult 9. Acute Encephalopathy 04/26 CVA -CT Brain shows L MCA infarct -CM for SNF placement, PT eval 10. Dermatitis-Scabies Ruled out via scraping PPx- Xarelto Problems: Subjective 24 Hr Interval Summary Constitutional: disoriented Exam/Review of Systems Vital Signs Vitals Vital Signs Date Time Temp Pulse Resp B/P Pulse Ox O2 Delivery O2 Flow Rate FiO2 05/11/16 11:00 97.9 81 19 92/69 96 05/11/16 08:26 21 05/11/16 04:00 Room Air 05/10/16 08:00 2.0 Intake and Output 05/10/16 05/10/16 05/11/16 15:00 23:00 07:00 Intake Total 1200 ml 400 ml Balance 1200 ml 400 ml Exam Psych: confusion Respiratory: clear to auscultation Cardiovascular: regular rate and rhythm Gastrointestinal: soft, No distended Musculoskeletal: nl extremities to inspection Results Result Diagram: 05/10/16 0730 05/10/16 0730 Results 24 hrs Laboratory Tests Test 05/10/16 16:33 05/10/16 21:43 05/11/16 07:36 05/11/16 08:30 Bedside Glucose 148 166 130 Urine Bilirubin NEGATIVE Urine Clarity CLEAR Urine Color LT. YELLOW Urine Glucose NEGATIVE Urine Hemoglobin NEGATIVE Urine Ketones NEGATIVE Urine Leukocyte Esterase NEGATIVE Urine Nitrite NEGATIVE Urine Specific [place] 1.010 Urine Total Protein NEGATIVE Urine Urobilinogen 0.2 E.U./dL Urine pH 6.0 Test 05/11/16 11:47 Bedside Glucose 157 Medications Medications Current Medications Acetaminophen (Tylenol Tab) 650 mg Q6H PRN PO PAIN AND OR ELEVATED TEMP Last administered on 05/08/16 04:05; Admin Dose 650 MG; Start 05/04/16 at 00:00 Acetaminophen/ Hydrocodone Bitart ([place] (10/325)) 1 tab Q4H PRN PO PAIN Last administered on 05/10/16 13:52; Admin Dose 1 TAB; Start 05/04/16 at 00:00 Diagnostic Test (Pha) (Accucheck) 1 ea 02 XX ; Start 05/04/16 at 02:00 Montelukast Sodium (Singulair) 10 mg HS PO Last administered on 05/10/16 21:45 ; Admin Dose 10 MG; Start 05/04/16 at 21:00 Salmeterol Xinafoate/ Fluticasone (Advair 250/50 Diskus) 1 inh BID INH Last administered on 05/11/16 09:31; Admin Dose 1 INH; Start 05/04/16 at 09:00 Tiotropium [place] (Spiriva) 1 inh DAILY INH Last administered on 05/11/16 09: 31; Admin Dose 1 INH; Start 05/04/16 at 09:00 Miscellaneous Information 1 ea NOTE XX ; Start 05/04/16 at 00:30 Glucose (Glutose) 15 gm Q15M PRN PO DECREASED GLUCOSE; Start 05/04/16 at 00:30 Glucose (Glutose) 22.5 gm Q15M PRN PO DECREASED GLUCOSE; Start 05/04/16 at 00: 30 Dextrose (D50w Syringe) 25 ml Q15M PRN IV DECREASED GLUCOSE; Start 05/04/16 at 00:30 Dextrose (D50w Syringe) 50 ml Q15M PRN IV DECREASED GLUCOSE; Start 05/04/16 at 00:30 Glucagon (Glucagen) 1 mg Q15M PRN IM DECREASED GLUCOSE; Start 05/04/16 at 00:30 Glucose (Glutose) 15 gm Q15M PRN BUCCAL DECREASED GLUCOSE; Start 05/04/16 at 00 :30 Insulin Glargine (Lantus) 10 unit QHS SC Last administered on 05/09/16 23:23; Admin Dose 10 UNIT; Start 05/04/16 at 01:00 Furosemide (Lasix) 40 mg DAILY@06 PO Last administered on 05/11/16 06:17; Admin Dose 40 MG; Start 05/04/16 at 06:00 Ondansetron HCl (Zofran Inj) 4 mg Q6H PRN IV NAUSEA AND/OR VOMITING Last administered on 05/04/16 01:47; Admin Dose 4 MG; Start 05/04/16 at 02:00 Morphine Sulfate (morphine) 3 mg Q4H PRN IV PAIN LEVEL 7-10 Last administered on 05/11/16 09:51; Admin Dose 3 MG; Start 05/04/16 at 03:30 Lorazepam (Ativan) 1 mg Q4 PRN PO ANXIETY Last administered on 05/10/16 02:58 ; Admin Dose 1 MG; Start 05/04/16 at 14:30 Hydroxyzine HCl (Atarax) 25 mg TID PRN PO ITCHING Last administered on 09:40; Admin Dose 25 MG; Start 05/04/16 at 16:00 Magnesium Oxide (Mag-Ox 400) 400 mg BID PO Last administered on 05/11/16 09:33 ; Admin Dose 400 MG; Start 05/05/16 at 21:00 Acetaminophen/ Hydrocodone Bitart ([place] (10/325)) 2 tab Q4H PRN PO PAIN Last administered on 05/11/16 02:05; Admin Dose 2 TAB; Start 05/05/16 at 14:00 Digoxin (Digoxin) 0.125 mg DAILY@13 PO Last administered on 05/10/16 14:05; Admin Dose 0.125 MG; Start 05/10/16 at 13:00 Carvedilol (Coreg) 6.25 mg BID PO Last administered on 05/11/16 09:34; Admin Dose 6.25 MG; Start 05/10/16 at 09:00 MAURIILO AMEZQUITA May 11, 2016 14:59
[2016-05-11 15:29] LABS: BARBITURATES Negative (NEGATIVE); BENZODIAZEPINES Negative (NEGATIVE); CANNABINOIDS Negative (NEGATIVE); COCAINE Negative (NEGATIVE)
[2016-05-11 15:32] LABS: OPIATES Positive (NEGATIVE)
[2016-05-11] MEDS: DIGOXIN 0.125 MG TAB PO SCH (15:57)
--- NOTE | 2016-05-11 16:40 | PN ---
DATE: 05/11/2016 CARDIOLOGY FOLLOWUP SUBJECTIVE: The patient is ____ telemetry. Still confused. MEDICATIONS: Reviewed. OBJECTIVE: VITAL SIGNS: Temperature 97.9, heart rate of 80, blood pressure 90/69, respiration rate of 19, satu rating 96%. HEENT: Normocephalic, atraumatic. Obese female. Pupils are equal. CARDIOVASCULAR: Regular. PULMONARY: No wheezes. GASTROINTESTINAL: Soft. EXTREMITIES: Trivial edema. NEUROLOGIC: Lethargic. LABORATORY: Glucose of 157. ____ is positive. Skin is negative for scabies. ASSESSMENT AND PLAN: 1. Congestive heart failure. 2. Atrial fibrillation. 3. Cardiomyopathy. 4. Chronic obstructive pulmonary disease. 5. Poor compliance. 6. Encephalopathy. 7. Diabetes. 8. History of drug use. 9. Cerebrovascular accident. RECOMMENDATIONS: Continue anticoagulation. Her beta avery was decreased. The digoxin was decrea sed. Diabetic management will be continued. Dictated By: ABDI RASMUSSEN MD AV/NAGA Conf#: [id number] DID#: [id number] CC: MAURILIO AMEZQUITA MD;*EndCC*
[2016-05-11] MEDS: RIVAROXABAN 20 MG TABLET PO SCH (17:56)
[2016-05-11] MEDS: SENNA TAB PO SCH (20:37)
[2016-05-11] MEDS: MONTELUKAST 10 MG TAB PO SCH (20:38)
[2016-05-11] MEDS: DOCUSATE SODIUM 100 MG CAP PO SCH (20:38)
[2016-05-11] MEDS: INSULIN GLARGINE [LANtus] 3 ML PEN SC SCH (20:39)
[2016-05-11 21:00] VITALS: BP 133/69; PULSE 78; RESP 20
[2016-05-12] VITALS: BP 99/60; RESP 15
[2016-05-12] MEDS: hydrOXYzine HCL 25 MG TAB PO PRN (00:14)
[2016-05-12] MEDS: ACCUCHECK XX SCH (01:27)
[2016-05-12 04:00] VITALS: BP 129/57; PULSE 70; RESP 18
[2016-05-12] MEDS: FUROSEMIDE 40 MG TAB PO SCH (06:13)
[2016-05-12 07:51] VITALS: BP 141/76; RESP 18
[2016-05-12] MEDS: INSULIN ASPART [NOVOLOG] 3 ML PEN SC SCH ×2 (08:00→12:34)
[2016-05-12] MEDS: TIOTROPIUM 18 MCG CAPSULE INHA DEV INH SCH (09:00)
[2016-05-12] MEDS: MAGNESIUM OXIDE 400 MG TAB PO SCH (10:44)
[2016-05-12] MEDS: morphine 4 MG/ML VIAL IV PRN (10:45)
[2016-05-12] MEDS: DOCUSATE SODIUM 100 MG CAP PO SCH (10:45)
[2016-05-12] MEDS: SENNA TAB PO SCH (10:45)
[2016-05-12] MEDS: HYDROCODONE/APAP (10/325) TAB PO PRN (10:58)
[2016-05-12] MEDS: SALMETEROL/FLUTICASONE 250/50 INHA INH SCH (11:33)
[2016-05-12 11:53] VITALS: BP 130/84; RESP 18
[2016-05-12] MEDS: DIGOXIN 0.125 MG TAB PO SCH (12:40)
[2016-05-12 13:43] VITALS: BP 100/65; RESP 18
--- NOTE | 2016-05-12 14:39 | PDOCDIS ---
Discharge Instructions CONDITION Patient Condition: Good HOME CARE INSTRUCTIONS: Special Diet: LOW CARB ACTIVITY: Activity Restrictions: No Restrictions FOLLOW UP/APPOINTMENTS Appointments F/U WITH YOUR PCP IN 1-2 WEEKS MAURILIO AMEZQUITA May 12, 2016 14:39
[2016-05-12] MEDS ORDERED: ATOR40TA68 PO (14:41)
--- NOTE | 2016-05-13 07:19 | DS ---
DATE OF ADMISSION: 05/03/2016 DATE OF DISCHARGE: 05/12/2016 DISCHARGE DIAGNOSES: 1. Atrial fibrillation with rapid ventricular rate, now stable. Continue Xarelto as well as home b eta avery. 2. Cardiomyopathy with EF 20%. Continue home medications, currently compensated. 3. Hypertension, stable. Continue home medications. 4. Chronic obstructive pulmonary disease. 5. Type 2 diabetes. Continue home medications. 6. Acute on chronic encephalopathy. The patient does have CVA with left MCA infarct. The patient' s mentation is now improved. Acute component was likely secondary to meth abuse. The patient is am bulating and has stated that she wanted to return home, did not want to go to a senior living, and di d not want home health. 7. Dermatitis. Scabies was ruled out. HOSPITAL COURSE: The patient is a 55-year-old female with history of atrial fibrillation, cardiomyo latia with ejection fraction of 20%, hypertension, COPD, substance abuse, and type 2 diabetes. The patient presents with abdominal pain. The patient was found to be in atrial fibrillation RVR. She is also very altered. The patient's abdominopelvic CT showed bilateral pleural effusions, small vol ume ascites. Otherwise, no significant findings. Gallbladder ultrasound showed contracted gallblad marilee and small volume of ascites; otherwise, no significant findings. Because of the patient's alter ed mental status, CT of the brain was ordered and showed what appeared to be a chronic left MCA terr itory infarct. The patient was severely confused for several days, was ambulating, but her mentatio n did improve. She does have a known history of substance abuse. Tox screen was positive for opiat es. She has reported history of meth use. The patient's mentation did improve, and she was able to ambulate and voiced that she did not want to go to a senior living, did not want home health, and sh e wanted to go home. The patient was ambulating fine. It was felt that she was stable for discharg e. On the day of discharge, the patient's vitals, labs, and physical exam were stable. She had no acute complaints. Questions answered. CONDITION ON DISCHARGE: Stable. DISPOSITION: To home. MEDICATIONS: The patient will continue usual home medications. She was given a prescription for Li pitor 40 mg p.o. at bedtime. FOLLOWUP: The patient is to follow up with her PCP in 1 to 2 weeks. Greater than 30 minutes was spent coordinating discharge of patient. Dictated By: MAURILIO AMEZQUITA MD BS/NTS Conf#: [id number] DID#: [id number]
== END 2016-05-12 16:43 | disposition home or self-care (01) | DRG 291 ==
LOC: E/R 10:51 → MS4 23:03 → PP2 05-12 13:28
PROVIDERS: ADMIT Internal Medicine; ATTEND Internal Medicine
DX: I50.23 Acute on chronic systolic (congestive) heart failure (principal); G93.40 Encephalopathy, unspecified; I27.2 Other secondary pulmonary hypertension; R18.8 Other ascites; I42.0 Dilated cardiomyopathy; D49.6 Neoplasm of unspecified behavior of brain; E11.65 Type 2 diabetes mellitus with hyperglycemia; Z68.41 Body mass index [BMI] 40.0-44.9, adult; I48.91 Unspecified atrial fibrillation; J44.9 Chronic obstructive pulmonary disease, unspecified; F15.10 Other stimulant abuse, uncomplicated; F41.9 Anxiety disorder, unspecified; E87.5 Hyperkalemia; R73.9 Hyperglycemia, unspecified; Z91.19 Patient's noncompliance with other medical treatment and regimen; L30.9 Dermatitis, unspecified; I11.0 Hypertensive heart disease with heart failure; E66.9 Obesity, unspecified; I69.398 Other sequelae of cerebral infarction; R10.30 Lower abdominal pain, unspecified
CPT/HCPCS: 36415; 70450; 74177; 76705; 80048; 80053; 80061; 80162; 80307; 81003; 82550; 82553; 82962; 83036; 83690; 83735; 83880; 84100; 84436; 84439; 84443; 84479; 84484; 85025; 85610; 85730; 86704; 86709; 86803; 87081; 87340; 88300; 93005; 93306; 94640; 94664; 96374; 96375; 96376; J1170; J1815; J2060; J2270; J2405; J7030; Q9967

== ENCOUNTER 2016-05-21 15:02 | Inpatient (IN) | payer OTHER ==
[~2016-05-21] VITALS: Ht 162.6 cm; Wt 80.0 kg
[~2016-05-21 15:02] MED LIST changes: +ATOR40TA68 PO
[2016-05-21 15:06] VITALS: Ht 162.6 cm; Wt 80.0 kg
--- NOTE | 2016-05-21 19:14 | ERA ---
ER Documentation Chief Complaint Date/Time DATE: 05/21/16 TIME: 19:14 Chief Complaint ABDOMINAL PAIN STARTED TODAY WITH ABDOMINAL DISTENTION HPI 55-year-old female with a history of atrial fibrillation on Xarelto, congestive heart failure, cardiomyopathy with EF of 20%, hypertension, diabetes mellitus type 2, COPD, CVA and chronic methamphetamine use presents the ED complaining of a 1 day history of increasing, sharp, nonradiating, epigastric abdominal pain and distention, increasing shortness of breath, orthopnea and exertional dyspnea with leg swelling. Intermittent palpitations but no chest pain. Denies recent methamphetamine abuse. No headache or neck pain. No visual changes, focal weakness or numbness. No URI symptoms or cough. No fevers or chills. ROS All systems reviewed and are negative except as per history of present illness. 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 Reported Medications Levetiracetam* (Keppra*) 500 Mg Tablet, 1000 MG PO BID, TAB 05/21/16 Apixaban* (Eliquis*) 5 Mg Tablet, 5 MG PO BID, TAB 05/21/16 Divalproex Sodium* (Depakote*) 500 Mg Tablet.dr, 500 MG PO DAILY, #30 TAB 05/21/16 Carvedilol* (Carvedilol*) 12.5 Mg Tablet, 12.5 MG PO BID, #60 TAB 05/21/16 Sitagliptin* (Januvia*) 100 Mg Tablet, 100 MG PO DAILY, #30 TAB 05/21/16 Metformin Hcl* (Metformin Hcl*) 1,000 Mg Tablet, 1000 MG PO WITH BREAKFAST DINNE , #60 TAB 05/21/16 Furosemide* (Furosemide*) 40 Mg Tablet, 40 MG PO DAILY, TAB 05/21/16 Benazepril Hcl* (Benazepril Hcl*) 20 Mg Tablet, 20 MG PO DAILY, #30 TAB 05/21/16 Glimepiride* (Glimepiride*) 4 Mg Tablet, 4 MG PO WITH BREAKFAST DINNE, TAB 01/03/16 Discontinued Reported Medications Sitagliptin* (Januvia*) 100 Mg Tablet, 100 MG PO DAILY, #30 TAB 01/03/16 Metformin Hcl* (Metformin Hcl*) 1,000 Mg Tablet, 1000 MG PO WITH BREAKFAST DINNE , #30 TAB 01/03/16 Benazepril Hcl* (Benazepril Hcl*) 10 Mg Tablet, 10 MG PO DAILY 05/11/12 Furosemide (Lasix) 40 Mg Tab, 40 MG PO DAILY 05/11/12 Discontinued Scripts Atorvastatin* (Atorvastatin*) 40 Mg Tablet, 40 MG PO QHS, #60 TAB Prov:MAURILIO AMEZQUITA 05/12/16 Tiotropium [place]* (Spiriva*) 18 Mcg Cap.w.dev, 1 INH INH DAILY for 30 Days Prov:BRITTANY HAYES NP 01/09/16 Spironolactone* (Aldactone*) 25 Mg Tablet, 25 MG PO DAILY for 30 Days, TAB Prov:BRITTANY HAYES NP 01/09/16 Salmeterol Xinaf/Fluticasone* (Advair*) 250-50 Diskus Inhaler, 1 INH INH BID for 30 Days Prov:BRITTANY HAYES NP 01/09/16 Rivaroxaban* (Xarelto*) 20 Mg Tablet, 20 MG PO WITH DINNER for 30 Days, TAB Prov:BRITTANY HAYES NP 01/09/16 Montelukast Sodium* (Montelukast Sodium*) 10 Mg Tablet, 10 MG PO HS for 30 Days , TAB Prov:BRITTANY HAYES NP 01/09/16 Metoprolol Tartrate* (Lopressor*) 50 Mg Tab, 50 MG PO BID for 30 Days, TAB Prov:BRITTANY HAYES NP 01/09/16 Albuterol Sulfate* (Ventolin HFA*) 18 Gm Hfa.aer.ad, 2 PUFF INHALATION Q4H, #1 INHALER Prov:KEKE SMALLS MD 12/25/15 Allergies Allergies: Coded Allergies: No Known Allergy (Unverified , 05/21/16) PMhx/Soc Reviewed in chart. As per HPI. History of Surgery: Yes (BRAIN TUMOR REMOVED 2015) Anesthesia Reaction: No Hx Neurological Disorder: Yes (PT HAS BRAIN TUMOR) Hx Respiratory Disorders: Yes (COPD) Hx Cardiac Disorders: Yes (AFIB.,HTN,CHF) Hx Psychiatric Problems: No Hx Miscellaneous Medical Probl: Yes (Methamphetamine abuse ) Hx Alcohol Use: No Hx Substance Use: No Hx Tobacco Use: Yes Smoking Status: Former smoker FmHx Reviewed in chart. Physical Exam Vitals Vital Signs Date Time Temp Pulse Resp B/P Pulse Ox O2 Delivery O2 Flow Rate FiO2 05/21/16 23:00 98.2 103 20 128/98 100 Room Air 05/21/16 21:00 98.0 101 25 147/137 96 Room Air 05/21/16 20:18 Nasal Cannula 2 05/21/16 19:16 89 126/99 05/21/16 18:57 97.8 92 25 132/101 96 Room Air 05/21/16 15:06 97.8 79 20 209/89 100 Physical Exam Const: Alert, mild distress. Head: Atraumatic Eyes: Normal Conjunctiva. Pupils equal reactive to light, extraocular muscles are intact. ENT: Normal External Ears, Nose and Mouth. Neck: Full range of motion. Nontender. Resp: Breath sounds are equal but diminished at the bases with crackles but no rhonchi or wheezes. Cardio: Irregular rate and rhythm, no murmurs Abd: Soft, non tender, non distended. Normal bowel sounds Skin: No petechiae or rashes Back: No midline or flank tenderness Ext: 2+ lower extremity edema. No calf tenderness. Neur: Awake and alert Psych: Normal Mood and Affect Result Diagram: 05/21/16199905/21/162117 Results 24 hrs Laboratory Tests Test 05/21/16 20:00 05/21/16 20:49 05/21/16 20:51 05/21/16 21:18 Basophils # 0.110^3/ul Basophils % 0.8% Digoxin Level 0.8ng/ml Eosinophils # 0.310^3/ul Eosinophils % 4.4% Hematocrit 39.0% Hemoglobin 12.2g/dl Lymphocytes # 1.410^3/ul Lymphocytes % 23.3% Mean Corpuscular Hemoglobin 28.2pg Mean Corpuscular Hemoglobin Concent 31.3g/dl Mean Corpuscular Volume 90.1fl Mean Platelet Volume 10.4fl Monocytes # 0.510^3/ul Monocytes % 9.0% Neutrophils # 3.710^3/ul Neutrophils % 61.7% Nucleated Red Blood Cells # 0.010^3/ul Nucleated Red Blood Cells % 0.5/100WBC Platelet Count 57488^3/UL Red Blood Count 4.3310^6/ul Red Cell Distribution Width 18.9% White Blood Count 6.010^3/ul Urine Amphetamines Screen Positive Urine Bacteria RARE Urine Barbiturates Negative Urine Benzodiazepines Screen Negative Urine Bilirubin 1+ Urine Cannabinoids Negative Urine Clarity CLEAR Urine Cocaine Screen Negative Urine Color DK. YELLOW Urine Glucose NEGATIVE% Urine Hemoglobin NEGATIVE Urine Ictotest POSITIVE Urine Ketones NEGATIVE Urine Leukocyte Esterase NEGATIVE Urine Microscopic RBC 0-2/HPF Urine Microscopic WBC 0-2/HPF Urine Nitrite NEGATIVE Urine Opiates Screen Negative Urine Specific [place] 1.025 Urine Squamous Epithelial Cells FEW Urine Total Protein 2+ Urine Urobilinogen 4.0 E.U./dL Urine pH 6.0 Bedside Glucose 92mg/dL Alanine Aminotransferase (ALT/SGPT) 43IU/L Albumin 4.0g/dl Albumin/Globulin Ratio 1.25 Alkaline Phosphatase 116IU/L Anion Gap 17 Aspartate Amino Transf (AST/SGOT) 41IU/L B-Type Natriuretic Peptide 83557ZP/ML Blood Urea Nitrogen 8mg/dl Calcium Level 9.2mg/dl Carbon Dioxide Level 32mmol/L Chloride Level 100mmol/L Creatinine 0.74mg/dl Direct Bilirubin 0.00mg/dl Globulin 3.20g/dl Glucose Level 96mg/dl Indirect Bilirubin 1.5mg/dl Lactic Acid Level 1.8mmol/L Lipase 52U/L Potassium Level 3.2mmol/L Sodium Level 146mmol/L Total Bilirubin 1.5mg/dl Total Protein 7.2g/dl Troponin I 0.032ng/ml Current Medications Medications (Trade) Dose Ordered Sig/Marck Route PRN Reason Start Time Stop Time Status Last Admin Dose Admin Furosemide (Lasix) 40 mg ONCE ONCE IV 05/21/16 19:30 05/21/16 19:31 DC 05/21/16 20:16 Potassium Chloride (Klor-Con 20) 20 meq ONCE STAT PO 05/21/16 23:21 05/21/16 23:23 DC 05/22/16 02:32 RHYTHM STRIP INTERPRETATION: Time: 19:10. Atrial fibrillation. Ventricular rate 108. Indication: Abdominal pain. EKG: TIME: 19:58. Atrial fib with RVR. Ventricular rate 104. Right axis deviation. Incomplete right bundle branch block. No acute ST elevation or depression. EP Interpretation: Abnormal EKG. IMAGING: PROCEDURE: XR Chest AP portable CLINICAL INDICATION: Abdominal pain TECHNIQUE: An AP portable radiograph of the chest was submitted. COMPARISON: 01/06/2016 FINDINGS: Support Hardware: None Cardiovascular: The cornu mediastinal silhouette remains mildly enlarged and globular configuration. The peripheral pulmonary vasculature ears unremarkable. Lung Holguin: Minimal discoid atelectasis projects to the heart at the left lung base with the lung holguin otherwise clear. Pleural Spaces: No pneumothorax or pleural effusion is identified. Osseous Structures: The osseous structures appear intact. Soft Tissues: The soft tissues appear generous. IMPRESSION: 1. Mild increased enlargement of the cardiomediastinal silhouette. Differential possibilities include extensive mediastinal fat, cardiomyopathy, or pericardial effusion. There is no evidence of CHF. 2. Otherwise, unremarkable portable chest. Physician Marcos Date Time Electronically viewed and signed by Physician Marcos on 05/21/2016 20:15 RH/ Procedures/MDM DOCUMENTS REVIEWED: ED nurse, prior ED, prior records MEDICAL DECISION MAKIN-year-old female with a history of atrial fibrillation on Xarelto, congestive heart failure, cardiomyopathy with EF of 20% , hypertension, diabetes mellitus type 2, COPD, CVA and chronic methamphetamine use presents the ED complaining of a 1 day history of increasing, sharp, nonradiating, epigastric abdominal pain and distention, increasing shortness of breath, orthopnea and exertional dyspnea with leg swelling. Patient with markedly elevated BNP and clinical signs of acute on chronic congestive heart failure though her EKG is not impressive. Increasing cardiomegaly but doubt pericardial effusion as recent echo was negative. Patient complains of ongoing abdominal pain but on 05/03/[address] abdomen pelvis and ultrasound which were unremarkable for acute pathology. Symptoms improved with diuretics. Chronic atrial fibrillation with variable rate. Mild hypokalemia replaced orally. No evidence of acute ischemia. Patient will be admitted to telemetry for further evaluation and management. Counseled patient regarding diagnosis, diagnostic results and plan for admission. PATIENT CARE TRANSITIONED: Time: 23:45, Dr. Carrillo. Departure Diagnosis: Primary Impression: Systolic CHF, acute on chronic Additional Impressions: Pulmonary hypertension Chronic atrial fibrillation with RVR Diabetes mellitus type 2 in obese History of CVA (cerebrovascular accident) Methamphetamine abuse Condition: Serious SHELL SANCHES MD May 21, 2016 19:14 SHELL SANCHES MD May 21, 2016 19:14
[2016-05-21] MEDS ORDERED: FUROSEMIDE 40 MG INJ IV ONE (19:30)
[2016-05-21] MEDS ORDERED: FURO40TA4 PO (19:47)
[2016-05-21] MEDS ORDERED: BENA20TA48 PO (19:47)
[2016-05-21] MEDS ORDERED: METF1000 PO (19:47)
[2016-05-21] MEDS ORDERED: SITA100T8 PO (19:48)
[2016-05-21] MEDS ORDERED: CARV12.579 PO (19:48)
[2016-05-21] MEDS ORDERED: DIVA500T7 PO (19:49)
[2016-05-21] MEDS ORDERED: APIX5TAB PO (19:50)
[2016-05-21] MEDS ORDERED: LEVE-5 PO (19:50)
--- NOTE | 2016-05-21 20:15 | RADRPT ---
PROCEDURE: XR Chest AP portable CLINICAL INDICATION: Abdominal pain TECHNIQUE: An AP portable radiograph of the chest was submitted. COMPARISON: 01/06/2016 FINDINGS: Support Hardware: None Cardiovascular: The cornu mediastinal silhouette remains mildly enlarged and globular configuration. The peripheral pulmonary vasculature ears unremarkable. Lung Holgu[place]: Minimal discoid atelectasis projects to the heart at the left lung base with the lung f ields otherwise clear. Pleural Spaces: No pneumothorax or pleural effusion is identified. Osseous Structures: The osseous structures appear intact. Soft Tissues: The soft tissues appear generous. IMPRESSION: 1. Mild increased enlargement of the cardiomediastinal silhouette. Differential possibilities incl ude extensive mediastinal fat, cardiomyopathy, or pericardial effusion. There is no evidence of CHF . 2. Otherwise, unremarkable portable chest. Physician Marcos Date Time Electronically viewed and signed by Ansley Lopez Physician on 05/21/2016 20:15 /
[2016-05-21 20:45] LABS: ADD SCAN DIFF NO
[2016-05-21 20:48] LABS: BASOPHIL # 0.1 10^3/ul (0.0-0.1); BASOPHILS % 0.8 % (0.0-2.0); EOSINOPHILS # 0.3 10^3/ul (0.0-0.5); EOSINOPHILS % 4.4 % (0.0-7.0); HEMOGLOBIN 12.2 g/dl (12.0-16.0); LYMPHOCYTES # 1.4 10^3/ul (0.8-2.9); LYMPHOCYTES % 23.3 % (15.0-51.0); MEAN CORPUSCULAR HEMOGLOBIN 28.2 pg (29.0-33.0); MEAN CORPUSCULAR HGB CONC 31.3 g/dl (32.0-37.0); MEAN CORPUSCULAR VOLUME 90.1 fl (82.0-101.0); MEAN PLATELET VOLUME 10.4 fl (7.4-10.4); MONOCYTE # 0.5 10^3/ul (0.3-0.9); NEUTROPHIL # 3.7 10^3/ul (1.6-7.5); NEUTROPHILS % 61.7 % (39.0-77.0); NUCLEATED RED BLOOD CELLS% 0.5 /100WBC (0.0-0.0); PLATELET COUNT 252 10^3/UL (140-415); RED BLOOD COUNT 4.33 10^6/ul (4.20-5.40); RED CELL DISTRIBUTION WIDTH 18.9 % (11.5-14.5)
[2016-05-21 21:05] LABS: ADD UMIC YES; URINE BILIRUBIN (Dip) 1+ (NEGATIVE); URINE BLOOD (Dip) NEGATIVE (NEGATIVE); URINE COLOR DK. YELLOW (YELLOW); URINE GLUCOSE (Dip) NEGATIVE (NEGATIVE); URINE KETONES (Dip) NEGATIVE (NEGATIVE); URINE LEUKOCYTE ESTERASE (Dip) NEGATIVE (NEGATIVE); URINE NITRITE (Dip) NEGATIVE (NEGATIVE); URINE TOTAL PROTEIN (Dip) 2+ (NEGATIVE); URINE UROBILINOGEN (Dip) 4.0 E.U./dL (0.1-1.0)
[2016-05-21 21:37] LABS: ICTOTEST POSITIVE (NEGATIVE)
[2016-05-21 21:39] LABS: BACTERIA,URINE RARE; SQUAMOUS EPITHELIAL CELL,UR FEW; URINE RBCS 0-2 /HPF (0)
[2016-05-21 21:55] LABS: POTASSIUM 3.2 mmol/L (3.5-5.1)
[2016-05-21 21:57] LABS: ALBUMIN/GLOBULIN RATIO 1.25; BILIRUBIN,INDIRECT 1.5 mg/dl (0-1.1); BILIRUBIN,TOTAL 1.5 mg/dl (0.2-1.3); CREATININE 0.74 mg/dl (0.44-1.00); TOTAL PROTEIN 7.2 g/dl (6.1-8.1)
[2016-05-21 21:58] LABS: CALCIUM 9.2 mg/dl (8.4-10.2)
[2016-05-21 22:00] LABS: CANNABINOIDS Negative (NEGATIVE)
[2016-05-21 22:10] LABS: TROPONIN-I 0.032 ng/ml (0.00-0.12)
[2016-05-21 22:10] LABS: BARBITURATES Negative (NEGATIVE); BENZODIAZEPINES Negative (NEGATIVE); COCAINE Negative (NEGATIVE)
[2016-05-21 22:11] LABS: OPIATES Negative (NEGATIVE)
[2016-05-21] MEDS ORDERED: POTASSIUM CHLORIDE (SR) 20 MEQ TAB PO STA (23:21)
[2016-05-22] VITALS (14 sets, daily range): BP systolic 99–139; BP diastolic 67–106; PULSE 69–120; RESP 18–20; TEMP 98.4
[2016-05-22] MEDS ORDERED: ACETAMINOPHEN 325 MG TAB PO PRN (00:30)
[2016-05-22] MEDS ORDERED: ONDANSETRON 4 MG INJ IV PRN (00:30)
[2016-05-22] MEDS ORDERED: DILTIAZEM-D5W 125MG/125ML DRIP 125 ML IV SCH (04:30)
[2016-05-22] MEDS ORDERED: METOPROLOL 25 MG TAB PO SCH (05:00)
--- NOTE | 2016-05-22 06:34 | HP ---
Date/Time of Note Date/Time of Note DATE: 05/22/16 TIME: 06:22 Assessment/Plan VTE Prophylaxis VTE Prophylaxis Intervention: other (xarelto) Lines/Catheters IV [facility]ter Type (from [facility]): Peripheral IV Urinary Cath still in place: No Assessment/Plan Assessment/Plan 1. Atrial fibrillation with RVR - Cont telemetry monitoring - If pt agrees, Cont Cardizem gtt, Digoxin and Xarelto, metoprolol. 2. Cardiomyopathy with Systolic Dysfunction Ejection Fraction of 20%. - Will restart home ACEI, Beta Khari and Aldactone 3. Runs of Vtach (33 beats) 4. Dilatation of the hepatic veins - this is a sequelae of right heart dysfunction. - Cont Lasix 5. Hx of COPD: - Cont Advair, Spiriva, Bronchodilators. Oxygen and Steroid as needed 6. Hx of Pulmonary hypertension: cont meds 7. Type 2 diabetes mellitus, poorly controlled - Insulin while in house 8. .Substance abuse: meth - Advanced about discontinuation . HPI/ROS Admit Date/Time Admit Date/Time May 22, 2016 at 00:16 Hx of Present Illness The patient is a 55-year-old female with a history of hypertension, atrial fibrillation, COPD, diabetes, substance abuse, and cardiomyopathy with systolic dysfunction with ejection fraction of 20% who presented to the emergency department with a chief complaint of diffuse abd pain and distention. In ER, she was found to be in Afib with RVR. The patient was last admitted here 2 weeks ago and also few months ago by myself for abd pain and she was found to be in Afib with RVR. She also now c/o intermittent palpitations. Previously she also presented with shortness of breath. At the time, she stated she was smoking methamphetamine and then she started having shortness of breath as well as palpitation and a pressure-like chest discomfort. She was also found to be in AFib with RVR at that time. Her recent 2-D echo showed an ejection fraction of 20% as well as moderate pulmonary hypertension and moderate to severe tricuspid regurgitation. 2 weeks ago, abd u/s and CT abd/pelvis was done with results as follows. CT abd/pelvis: Cardiomegaly with small bilateral pleural effusions. Dilatation of the hepatic veins suggest sequelae of right heart dysfunction. Diffuse mesenteric edema with small volume ascites. Diffuse subcutaneous soft tissue edema. Abd U/S: Small volume of ascites. Distended hepatic veins, questionable if this is related to right heart failure. Correlation with an echocardiogram may be of value as clinically warranted. Contracted gallbladder. CXR today showed Mild increased enlargement of the cardiomediastinal silhouette. Differential possibilities include extensive mediastinal fat, cardiomyopathy, or pericardial effusion. There is no evidence of CHF. After pt was admitted to telemetry unit, she refused lopressor. She also had 33 beats of vtach. Pt also has a hx of leaving AMA . PMH/Family/Social Social History Smoking Status: Former smoker Exam/Review of Systems Vital Signs Vitals Vital Signs Date Time Temp Pulse Resp B/P Pulse Ox O2 Delivery O2 Flow Rate FiO2 05/22/16 04:09 97.9 94 20 139/102 98 05/22/16 03:51 Room Air 05/21/16 20:18 2 Intake and Output 05/21/16 05/21/16 05/22/16 15:00 23:00 07:00 Intake Total 100 ml Output Total 300 ml Balance -200 ml Exam Exam GENERAL: No acute distress. The patient is able to speak in full sentences, answering questions appropriately. HEENT: No obvious head deformity. Pupils are reactive to light. Extraocular muscles intact. CARDIOVASCULAR: Irregularly irregular. LUNGS: Decreased breath sounds at the bases with minimal scattered wheezing. ABDOMEN: Soft, nontender, nondistended. Positive bowel sounds. EXTREMITIES: No edema. NEUROLOGIC: No focal deficits. Labs Result Diagram: 05/21/16199905/21/162117 Medications Medications Current Medications Metoprolol Tartrate (Lopressor) 25 mg BID PO ; Start 05/22/16 at 05:00 Aspirin 81 mg 81 mg DAILY PO ; Start 05/22/16 at 09:00 Diltiazem HCl (Cardizem-D5W 125 Mg/125 ml Drip) 125 ml @ 5 mls/hr TITRATE IV ; Start 05/22/16 at 04:30 NATHAN DE JESUS MD May 22, 2016 06:33
[2016-05-22] MEDS: FUROSEMIDE 40 MG TAB PO SCH (07:12)
[2016-05-22] MEDS: DIVALPROEX (EC) 500 MG TAB PO SCH (08:07)
[2016-05-22] MEDS: LEVETIRACETAM 500 MG TAB PO SCH ×2 (08:07→21:24)
[2016-05-22] MEDS: metFORMIN 500 MG TAB PO SCH ×2 (08:07→17:20)
[2016-05-22] MEDS: APIXABAN 5 MG TABLET PO SCH ×2 (08:08→21:24)
[2016-05-22] MEDS: LINAGLIPTIN 5 MG TABLET PO SCH (08:08)
[2016-05-22] MEDS: BENAZEPRIL 20 MG TAB PO SCH (08:09)
[2016-05-22] MEDS ORDERED: ASPIRIN 81 MG TAB PO SCH (09:00)
[2016-05-22] MEDS ORDERED: NON-FORMULARY/PATIENT OWN MED (Sitagliptin* (Januvia*) 100 MG) PO SCH (09:00)
[2016-05-22] MEDS ORDERED: DIGOXIN 0.25 MG TAB PO SCH (13:00)
--- NOTE | 2016-05-22 14:10 | PN ---
Date/Time of Note Date/Time of Note DATE: 05/22/16 TIME: 13:57 Assessment/Plan VTE Prophylaxis VTE Prophylaxis Intervention: other (eliquis) Lines/Catheters IV Catheter Type (from Nrs): [place] Urinary Cath still in place: No Assessment/Plan Assessment/Plan 1. Atrial fibrillation with RVR, on digoxin, coreg, and eliquis 2. Cardiomyopathy with Systolic Dysfunction Ejection Fraction of 20%. continue benazepril, coreg, lasix 3. Runs of Vtach (33 beats) 4. COPD: stable 5. Pulmonary hypertension 6. Type 2 diabetes mellitus, oral and ISS 7. .Substance abuse: meth 8. DVT prophylaxis: eliquis Subjective 24 Hr Interval Summary Free Text/Dictation no shortness of breath, no fever or chills Exam/Review of Systems Vital Signs Vitals Vital Signs Date Time Temp Pulse Resp B/P Pulse Ox O2 Delivery O2 Flow Rate FiO2 05/22/16 11:42 97.1 64 18 99/67 96 05/22/16 03:51 Room Air 05/21/16 20:18 2 Intake and Output 05/21/16 05/21/16 05/22/16 15:00 23:00 07:00 Intake Total 100 ml Output Total 300 ml Balance -200 ml Exam Constitutional: alert, oriented, well developed Psych: nl mood/affect, no complaints Head: atraumatic, normocephalic Eyes: EOMI, nl conjunctiva, nl lids ENMT: nl external ears & nose, nl lips & teeth, nl nasal mucosa & septum Neck: non-tender, supple Respiratory: clear to auscultation, normal air movement, No congested cough, No crackles/rales, No diminished breath sounds, No intercostal retraction, No labored breathing, No other, No respirations, No tactile fremitus, No wheezing Cardiovascular: irregular rhythm, No S3, No S4, No bruits, No diastolic murmur, No edema, No gallop, No rub, No systolic murmur Gastrointestinal: nl liver, spleen, non-tender, soft, No ascites, No bowel sounds, No distended, No firm, No hepatomegaly, No mass , No rebound or guarding, No splenomegaly, No surgical scars, No tender Musculoskeletal: nl extremities to inspection Extremities: normal pulses, No calf tenderness, No clubbing, No cyanosis, No edema, No other, No palpable cord, No pitting pedal edema, No tenderness Neurological: RN ELIGIBILITY II-XII intact, nl mental status, nl speech Results Result Diagram: 05/21/16199905/21/162117 Results 24 hrs Laboratory Tests Test 05/21/16 20:00 05/21/16 20:49 05/21/16 20:51 05/21/16 21:18 Basophils # 0.1 Basophils % 0.8 Digoxin Level 0.8 L Eosinophils # 0.3 Eosinophils % 4.4 Hematocrit 39.0 Hemoglobin 12.2 Lymphocytes # 1.4 Lymphocytes % 23.3 Mean Corpuscular Hemoglobin 28.2 L Mean Corpuscular Hemoglobin Concent 31.3 L Mean Corpuscular Volume 90.1 Mean Platelet Volume 10.4 Monocytes # 0.5 Monocytes % 9.0 Neutrophils # 3.7 Neutrophils % 61.7 Nucleated Red Blood Cells # 0.0 Nucleated Red Blood Cells % 0.5 H Platelet Count 252 Red Blood Count 4.33 Red Cell Distribution Width 18.9 H White Blood Count 6.0 Urine Amphetamines Screen Positive Urine Bacteria RARE Urine Barbiturates Negative Urine Benzodiazepines Screen Negative Urine Bilirubin 1+ H Urine Cannabinoids Negative Urine Clarity CLEAR Urine Cocaine Screen Negative Urine Color DK. YELLOW Urine Glucose NEGATIVE Urine Hemoglobin NEGATIVE Urine Ictotest POSITIVE Urine Ketones NEGATIVE Urine Leukocyte Esterase NEGATIVE Urine Microscopic RBC 0-2 Urine Microscopic WBC 0-2 Urine Nitrite NEGATIVE Urine Opiates Screen Negative Urine Specific [place] 1.025 Urine Squamous Epithelial Cells FEW Urine Total Protein 2+ H Urine Urobilinogen 4.0 E.U./dL H Urine pH 6.0 Bedside Glucose 92 Alanine Aminotransferase (ALT/SGPT) 43 Albumin 4.0 Albumin/Globulin Ratio 1.25 Alkaline Phosphatase 116 Anion Gap 17 H Aspartate Amino Transf (AST/SGOT) 41 B-Type Natriuretic Peptide 88736 H Blood Urea Nitrogen 8 Calcium Level 9.2 Carbon Dioxide Level 32 H Chloride Level 100 Creatinine 0.74 Direct Bilirubin 0.00 Globulin 3.20 Glucose Level 96 Indirect Bilirubin 1.5 H Lactic Acid Level 1.8 Lipase 52 Potassium Level 3.2 L Sodium Level 146 H Total Bilirubin 1.5 H Total Protein 7.2 Troponin I 0.032 Test 05/22/16 03:45 05/22/16 07:46 05/22/16 11:34 Bedside Glucose 111 151 171 Medications Medications Current Medications Aspirin 81 mg 81 mg DAILY PO Last administered on 05/22/16 08:08; Admin Dose 81 MG; Start 05/22/16 at 09:00 Diltiazem HCl (Cardizem-D5W 125 Mg/125 ml Drip) 125 ml @ 5 mls/hr TITRATE IV ; Start 05/22/16 at 04:30 Apixaban (Eliquis) 5 mg BID PO Last administered on 05/22/16 08:08; Admin Dose 5 MG; Start 05/22/16 at 09:00 Benazepril HCl (Lotensin) 20 mg DAILY PO Last administered on 05/22/16 08:09; Admin Dose 20 MG; Start 05/22/16 at 09:00 Carvedilol (Coreg) 12.5 mg BID PO Last administered on 05/22/16 08:08; Admin Dose 12.5 MG; Start 05/22/16 at 09:00 Digoxin (Digoxin) 0.25 mg DAILY@13 PO Last administered on 05/22/16 13:17; Admin Dose 0.25 MG; Start 05/22/16 at 13:00 Divalproex Sodium (Depakote) 500 mg DAILY PO Last administered on 05/22/16 08: 07; Admin Dose 500 MG; Start 05/22/16 at 09:00 Furosemide (Lasix) 40 mg DAILY@06 PO Last administered on 05/22/16 07:12; Admin Dose 40 MG; Start 05/22/16 at 07:00 Levetiracetam (Keppra) 1,000 mg BID PO Last administered on 05/22/16 08:07; Admin Dose 1,000 MG; Start 05/22/16 at 09:00 Linagliptin (Tradjenta) 5 mg DAILY PO Last administered on 05/22/16 08:08; Admin Dose 5 MG; Start 05/22/16 at 09:00 LENIN AGGARWAL MD May 22, 2016 14:07
[2016-05-22] MEDS: SPIRONOLACTONE 25 MG TAB PO SCH ×2 (16:30→17:19)
--- NOTE | 2016-05-22 16:57 | CONS ---
DATE OF ADMISSION: 05/22/2016 DATE OF CONSULTATION: 05/22/2016 TYPE OF CONSULTATION: Pulmonary. REASON FOR CONSULTATION: Atrial fibrillation, cardiomyopathy. CHIEF COMPLAINT: Abdominal discomfort. HISTORY OF PRESENT ILLNESS: Thank you for this referral. History comes from the patient, extensive review of the old chart. The patient is also known ____ the hospital. 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 She came in this time said that she had abdominal discomfort an d bloating, has not had a bowel movement for a few days. The patient noted to be in atrial fibrilla tion with rapid ventricular response, admitted for further workup. She has been placed on p.o. medi cation and her heart rate has remained stable, currently denies any chest pain or pressure to me. C hest x-ray also shows cardiomegaly as previously has, but does not show evidence of fluid overload. MEDICATIONS AT HOME: Reviewed. ALLERGIES: NO KNOWN ALLERGIES. SOCIAL HISTORY: The patient has used amphetamines multiple times in the past. Her urine has been p ositive multiple times. FAMILY HISTORY: No reported coronary artery disease. ALLERGIES: NO KNOWN ALLERGIES. MEDICATIONS: As per medical reconciliation, personally reviewed. REVIEW OF SYSTEMS: Otherwise negative except for above-mentioned. PHYSICAL EXAMINATION: VITAL SIGNS: Temperature 97.4, heart rate is currently 60, blood pressure 119/75, respiratory rate of 18. HEENT: Normocephalic, atraumatic. Obese female. Pupils are equal. Oropharynx with poor dentition . CARDIOVASCULAR: Irregularly irregular, systolic murmur. PULMONARY: With no wheezes heard. GASTROINTESTINAL: Soft. No rebound or guarding. EXTREMITIES: No significant edema. NEUROLOGIC: Awake and alert. PSYCHIATRIC: Appeared to be calm. DIAGNOSTIC DATA: Chest x-ray as above. CT of the abdomen on May 03 shows diffuse mesenteric ed ramonita and small volume ascites. LABORATORY: WBC of 6, hemoglobin 12.2, platelets of 252. Sodium 146, potassium 3.2, BUN of 8, crea tinine 0.74, glucose of 96. ProBNP of 10,400. Troponin 0.032. EKG showed atrial fibrillation with rapid ventricular response with low voltage. ASSESSMENT AND PLAN: 1. Atrial fibrillation with rapid ventricular response. 2. Cardiomyopathy; severe, nonischemic, mostly related to amphetamine use. 3. Hyperkalemia. 4. Abdominal discomfort, possibly consider constipation versus others. 5. Diabetes. RECOMMENDATIONS: Patient who has been resumed on her regular cardiac medication including digoxin, Eliquis, benazepril and carvedilol and heart rate has significantly improved, does not appear to be fluid overloaded. I will decrease the digoxin and add Aldactone to her regimen. GI workup and dylon tment as per internal medicine. Dictated By: ABDI ATWOOD/NAGA Conf#: [id number] DID#: [id number]
--- NOTE | 2016-05-22 19:37 | RADRPT ---
PROCEDURE: XR Abdomen. CLINICAL INDICATION: Abdominal pain. TECHNIQUE: AP abdomen x-ray. COMPARISON: No. FINDINGS: The stomach is distended with air. There are scattered air and fecal material in the colon with no mechanical bowel obstruction noted. The heart is enlarged. There are osteophytes in the thoracic and lumbar spine. No pleural effusion or acute infiltrate is noted. There is disk space narrowing at L3-4 and L4-5. There is disk space narrowing at L5-S1. IMPRESSION: 1. Cardiomegaly. 2. Nonspecific bowel gas pattern. 3. Osteoarthritis of the thoracic and lumbosacral spine. RPTAT:AAJJ Physician Jerrica Date Time Electronically viewed and signed by Physician Jerrica on 05/22/2016 19:36 /
[2016-05-23] VITALS (9 sets, daily range): BP systolic 94–132; BP diastolic 69–82; PULSE 53–90; RESP 18–19
[2016-05-23] MEDS: morphine 4 MG/ML VIAL IV PRN ×2 (00:20→23:16)
[2016-05-23] MEDS: FUROSEMIDE 40 MG TAB PO SCH (05:59)
[2016-05-23] MEDS: APIXABAN 5 MG TABLET PO SCH ×2 (08:15→22:52)
[2016-05-23] MEDS: LINAGLIPTIN 5 MG TABLET PO SCH (08:15)
[2016-05-23] MEDS: DIVALPROEX (EC) 500 MG TAB PO SCH (08:15)
[2016-05-23] MEDS: SPIRONOLACTONE 25 MG TAB PO SCH (08:15)
[2016-05-23] MEDS: BENAZEPRIL 20 MG TAB PO SCH (08:15)
[2016-05-23] MEDS: LEVETIRACETAM 500 MG TAB PO SCH ×2 (08:15→21:00)
[2016-05-23] MEDS: metFORMIN 500 MG TAB PO SCH ×2 (08:53→17:37)
[2016-05-23] MEDS ORDERED: GLUCOSE GEL 15 GRAM TUBE BUCCAL PRN (11:00)
[2016-05-23] MEDS ORDERED: GLUCOSE GEL 15 GRAM TUBE PO PRN ×2 (11:00)
[2016-05-23] MEDS ORDERED: GLUCAGON 1 MG INJ IM PRN (11:00)
[2016-05-23] MEDS ORDERED: DEXTROSE 50% 50 ML SYRINGE IV PRN ×2 (11:00)
--- NOTE | 2016-05-23 11:27 | PN ---
DATE: 05/23/2016 CARDIOLOGY FOLLOWUP SUBJECTIVE: Discussed with the staff. Rhythm strip was reviewed. The patient has episodes of long , but nonsustained VT yesterday, appeared to be asymptomatic. The patient denies any chest pain or pressure. The abdominal pain has improved. MEDICATIONS: Reviewed. PHYSICAL EXAMINATION: VITAL SIGNS: Temperature 97.6, heart rate of 72, blood pressure 130/79, respirations 18, saturating 96%. HEENT: Normocephalic, atraumatic. Pupils are equal. CARDIOVASCULAR: Irregularly irregular. Systolic murmur. PULMONARY: With no wheezes. GASTROINTESTINAL: Soft, nontender. EXTREMITIES: With trivial lower extremity edema. NEUROLOGIC: Awake and alert. ASSESSMENT AND PLAN: 1. Atrial fibrillation, currently under control, on anticoagulation. 2. Congestive heart failure, chronic. Currently stable. 3. Severe cardiomyopathy, most likely related to drug abuse. She now admitted the last use was a w yurok ago. 4. Hypertension, under good control. 5. Nonsustained ventricular tachycardia. We monitored electrolytes and corrected. Continue RECOMMENDATIONS: We will continue with the Digoxin, Aldactone. We will continue with the Eliquis a nd we will discontinue the aspirin since she is already on Eliquis. Labs have been ordered for toalen y, are still pending, to be followed and adjusted as needed. SLIM inhibitor will be continued. Core g to be continued as tolerated. Dictated By: ABDI ATWOOD/NAGA Conf#: [id number] DID#: [id number]
[2016-05-23] MEDS ORDERED: DIGOXIN 0.125 MG TAB PO SCH (13:00)
[2016-05-23 13:06] LABS: ADD SCAN DIFF NO
[2016-05-23 13:18] LABS: BASOPHILS % 0.8 % (0.0-2.0); EOSINOPHILS # 0.3 10^3/ul (0.0-0.5); EOSINOPHILS % 5.3 % (0.0-7.0); HEMOGLOBIN 11.7 g/dl (12.0-16.0); LYMPHOCYTES # 1.1 10^3/ul (0.8-2.9); LYMPHOCYTES % 22.7 % (15.0-51.0); MEAN CORPUSCULAR HEMOGLOBIN 28.1 pg (29.0-33.0); MEAN CORPUSCULAR HGB CONC 31.6 g/dl (32.0-37.0); MEAN CORPUSCULAR VOLUME 88.7 fl (82.0-101.0); MEAN PLATELET VOLUME 10.1 fl (7.4-10.4); MONOCYTE # 0.3 10^3/ul (0.3-0.9); MONOCYTES % 7.1 % (0.0-11.0); NEUTROPHILS % 63.9 % (39.0-77.0); PLATELET COUNT 188 10^3/UL (140-415); RED BLOOD COUNT 4.17 10^6/ul (4.20-5.40); RED CELL DISTRIBUTION WIDTH 18.5 % (11.5-14.5); WHITE BLOOD COUNT 4.8 10^3/ul (4.8-10.8)
--- NOTE | 2016-05-23 14:25 | PN ---
Date/Time of Note Date/Time of Note DATE: 05/23/16 TIME: 14:21 Assessment/Plan VTE Prophylaxis VTE Prophylaxis Intervention: other (eliquis) Lines/Catheters IV Catheter Type (from Nrs): [place] Urinary Cath still in place: No Assessment/Plan Assessment/Plan 1. Atrial fibrillation with slow VR, stop digoxin and continue coreg and eliquis 2. Cardiomyopathy with Systolic Dysfunction Ejection Fraction of 20%. continue benazepril, coreg, lasix 3. Runs of Vtach (33 beats), on coreg 4. COPD: stable 5. Pulmonary hypertension 6. Type 2 diabetes mellitus, oral and ISS 7. .Substance abuse: meth 8. Seizure disorder, on keppra 9. DVT prophylaxis: eliquis Subjective 24 Hr Interval Summary Free Text/Dictation no shortness of breath, no chest pain. ECG with slow VR down to 40s. runs of VT Exam/Review of Systems Vital Signs Vitals Vital Signs Date Time Temp Pulse Resp B/P Pulse Ox O2 Delivery O2 Flow Rate FiO2 05/23/16 12:16 53 05/23/16 04:28 97.6 18 132/79 96 05/22/16 03:51 Room Air 05/21/16 20:18 2 Intake and Output 05/22/16 05/22/16 05/23/16 15:00 23:00 07:00 Intake Total 720 ml 500 ml Balance 720 ml 500 ml Exam Constitutional: alert, oriented, well developed Psych: nl mood/affect, no complaints Head: atraumatic, normocephalic Eyes: EOMI, PERRL, nl conjunctiva, nl lids ENMT: nl external ears & nose, nl lips & teeth, nl nasal mucosa & septum Neck: non-tender, supple Respiratory: clear to auscultation, normal air movement, No congested cough, No crackles/rales, No diminished breath sounds, No intercostal retraction, No labored breathing, No other, No respirations, No tactile fremitus, No wheezing Cardiovascular: irregular rhythm, nl pulses, No S3, No S4, No bruits, No diastolic murmur, No edema, No gallop, No jugular venous distention (JVD), No murmurs/extra sounds, No other, No rub, No systolic murmur Gastrointestinal: nl liver, spleen Musculoskeletal: nl extremities to inspection Extremities: normal pulses, No calf tenderness, No clubbing, No cyanosis, No edema, No other, No palpable cord, No pitting pedal edema, No tenderness Neurological: ADMINISTRATIVE FELLOW II-XII intact, nl mental status, nl speech, nl strength Skin: nl turgor Results Result Diagram: 05/23/16 1305 05/21/16 2118 Results 24 hrs Laboratory Tests Test 05/22/16 17:17 05/22/16 21:19 05/23/16 07:40 05/23/16 13:05 Bedside Glucose 100 86 79 Basophils # 0.0 Basophils % 0.8 Digoxin Level 0.8 L Eosinophils # 0.3 Eosinophils % 5.3 Hematocrit 37.0 Hemoglobin 11.7 L Lymphocytes # 1.1 Lymphocytes % 22.7 Mean Corpuscular Hemoglobin 28.1 L Mean Corpuscular Hemoglobin Concent 31.6 L Mean Corpuscular Volume 88.7 Mean Platelet Volume 10.1 Monocytes # 0.3 Monocytes % 7.1 Neutrophils # 3.0 Neutrophils % 63.9 Nucleated Red Blood Cells # 0.0 Nucleated Red Blood Cells % 0.0 Platelet Count 188 # Red Blood Count 4.17 L Red Cell Distribution Width 18.5 H White Blood Count 4.8 Medications Medications Current Medications Diltiazem HCl (Cardizem-D5W 125 Mg/125 ml Drip) 125 ml @ 5 mls/hr TITRATE IV ; Start 05/22/16 at 04:30 Apixaban (Eliquis) 5 mg BID PO Last administered on 05/23/16 08:15; Admin Dose 5 MG; Start 05/22/16 at 09:00 Benazepril HCl (Lotensin) 20 mg DAILY PO Last administered on 05/23/16 08:15; Admin Dose 20 MG; Start 05/22/16 at 09:00 Carvedilol (Coreg) 12.5 mg BID PO Last administered on 05/23/16 08:15; Admin Dose 12.5 MG; Start 05/22/16 at 09:00 Divalproex Sodium (Depakote) 500 mg DAILY PO Last administered on 05/23/16 08: 15; Admin Dose 500 MG; Start 05/22/16 at 09:00 Furosemide (Lasix) 40 mg DAILY@06 PO Last administered on 05/23/16 05:59; Admin Dose 40 MG; Start 05/22/16 at 07:00 Levetiracetam (Keppra) 1,000 mg BID PO Last administered on 05/23/16 08:15; Admin Dose 1,000 MG; Start 05/22/16 at 09:00 Linagliptin (Tradjenta) 5 mg DAILY PO Last administered on 05/23/16 08:15; Admin Dose 5 MG; Start 05/22/16 at 09:00 Digoxin (Digoxin) 0.125 mg DAILY@13 PO Last administered on 05/23/16 13:19; Admin Dose 0.125 MG; Start 05/23/16 at 13:00 Spironolactone (Aldactone) 25 mg DAILY PO Last administered on 05/23/16 08:15; Admin Dose 25 MG; Start 05/22/16 at 16:30 Morphine Sulfate (morphine) 3 mg Q4H PRN IV PAIN LEVEL 7-10 Last administered on 05/23/16 00:20; Admin Dose 3 MG; Start 05/23/16 at 00:00 Miscellaneous Information 1 ea NOTE XX ; Start 05/23/16 at 11:00 Glucose (Glutose) 15 gm Q15M PRN PO DECREASED GLUCOSE; Start 05/23/16 at 11:00 Glucose (Glutose) 22.5 gm Q15M PRN PO DECREASED GLUCOSE; Start 05/23/16 at 11:00 Dextrose (D50w Syringe) 25 ml Q15M PRN IV DECREASED GLUCOSE; Start 05/23/16 at 11:00 Dextrose (D50w Syringe) 50 ml Q15M PRN IV DECREASED GLUCOSE; Start 05/23/16 at 11:00 Glucagon (Glucagen) 1 mg Q15M PRN IM DECREASED GLUCOSE; Start 05/23/16 at 11:00 Glucose (Glutose) 15 gm Q15M PRN BUCCAL DECREASED GLUCOSE; Start 05/23/16 at 11: 00 LENIN AGGARWAL MD May 23, 2016 14:25
[2016-05-23] MEDS ORDERED: BISACODYL (EC) 5 MG TAB PO ONE (14:30)
[2016-05-23 14:38] LABS: ALBUMIN 3.4 g/dl (3.3-4.9)
[2016-05-23 14:41] LABS: ALBUMIN/GLOBULIN RATIO 0.87; CREATININE 0.83 mg/dl (0.44-1.00); TOTAL PROTEIN 7.3 g/dl (6.1-8.1)
[2016-05-23 14:42] LABS: CALCIUM 9.6 mg/dl (8.4-10.2); MAGNESIUM 1.6 mg/dl (1.7-2.5)
[2016-05-23 14:54] LABS: POTASSIUM 4.4 mmol/L (3.5-5.1)
[2016-05-24] VITALS (11 sets, daily range): BP systolic 108–139; BP diastolic 65–75; PULSE 59–99; RESP 17–20
[2016-05-24] MEDS: FUROSEMIDE 40 MG TAB PO SCH (06:33)
[2016-05-24] MEDS: LINAGLIPTIN 5 MG TABLET PO SCH (08:17)
[2016-05-24] MEDS: BENAZEPRIL 20 MG TAB PO SCH (08:17)
[2016-05-24] MEDS: SPIRONOLACTONE 25 MG TAB PO SCH (08:17)
[2016-05-24] MEDS: APIXABAN 5 MG TABLET PO SCH ×2 (08:18→21:21)
[2016-05-24] MEDS: LEVETIRACETAM 500 MG TAB PO SCH ×3 (08:18→21:20)
[2016-05-24] MEDS: DIVALPROEX (EC) 500 MG TAB PO SCH (08:18)
[2016-05-24] MEDS: metFORMIN 500 MG TAB PO SCH ×2 (08:21→17:18)
--- NOTE | 2016-05-24 10:34 | PN ---
DATE: 05/24/2016 CARDIOLOGY FOLLOWUP SUBJECTIVE: No new cardiac events. The patient remains in atrial fibrillation, heart rate under go od control. MEDICATIONS: Reviewed. PHYSICAL EXAMINATION: VITAL SIGNS: Temperature 97.9, heart rate of 71, blood pressure 108/73, respiration rate 18, satura ting 95%. HEENT: Normocephalic, atraumatic. Pupils are equal. CARDIOVASCULAR: Irregularly irregular. Systolic murmur. PULMONARY: With no wheezes or rhonchi. GASTROINTESTINAL: Soft, nontender. EXTREMITIES: Trivial edema. NEUROLOGIC: Awake and alert. PSYCHIATRIC: Appears to be anxious, but otherwise stable. LABORATORY: Sodium 152, potassium 4.4, BUN 14, creatinine 0.83, glucose 112. Digoxin level is 0.8, as of yesterday. WBC of 4.8, hemoglobin 11.7, platelets of 188. ASSESSMENT AND PLAN: 1. Atrial fibrillation. Heart rate is currently under good control, on anticoagulation. 2. Cardiomyopathy. 3. Short runs of nonsustained ventricular tachycardia. Currently stable. 4. Chronic obstructive pulmonary disease. 5. Diabetes. 6. History of methamphetamine use. 7. History of seizure disorder. 8. Hypernatremia. Will be deferred to internal medicine. RECOMMENDATIONS: Fluid management as per internal medicine. Continue with the current cardiac care . Dictated By: ABDI RASMUSSEN MD AV/NAGA Conf#: [id number] DID#: [id number] CC: MYRON RAMESH MD;*EndCC*
[2016-05-24] MEDS ORDERED: SPIR25TA PO (15:18)
[2016-05-24] MEDS ORDERED: LINA5TAB PO (15:18)
[2016-05-24] MEDS ORDERED: BISACODYL 10 MG SUPP PR ONE (15:30)
--- NOTE | 2016-05-24 15:30 | DS ---
Date/Time of Note Date/Time of Note DATE: 05/24/16 TIME: 15:20 Discharge Summary Admission/Discharge Info Admit Date/Time May 22, 2016 at 00:16 Discharge Date/Time Final Diagnosis 1. Atrial fibrillation, controlled VR, stopped digoxin and continue coreg and eliquis 2. Cardiomyopathy with Systolic Dysfunction Ejection Fraction of 20%. continue benazepril, coreg, lasix , on aldactone 3. Runs of Vtach (33 beats), on coreg, follow up with cardiology 4. COPD: stable 5. Pulmonary hypertension 6. Type 2 diabetes mellitus, oral metoformin and linagliptin 7. .Substance abuse: meth 8. Seizure disorder, on keppra Patient Condition: Stable Hx of Present Illness The patient is a 55-year-old female with a history of hypertension, atrial fibrillation, COPD, diabetes, substance abuse, and cardiomyopathy with systolic dysfunction with ejection fraction of 20% who presented to the emergency department with a chief complaint of diffuse abd pain and distention. In ER, she was found to be in Afib with RVR. The patient was last admitted here 2 weeks ago and also few months ago by myself for abd pain and she was found to be in Afib with RVR. She also now c/o intermittent palpitations. Previously she also presented with shortness of breath. At the time, she stated she was smoking methamphetamine and then she started having shortness of breath as well as palpitation and a pressure-like chest discomfort. She was also found to be in AFib with RVR at that time. Her recent 2-D echo showed an ejection fraction of 20% as well as moderate pulmonary hypertension and moderate to severe tricuspid regurgitation. 2 weeks ago, abd u/s and CT abd/pelvis was done with results as follows. CT abd/pelvis: Cardiomegaly with small bilateral pleural effusions. Dilatation of the hepatic veins suggest sequelae of right heart dysfunction. Diffuse mesenteric edema with small volume ascites. Diffuse subcutaneous soft tissue edema. Abd U/S: Small volume of ascites. Distended hepatic veins, questionable if this is related to right heart failure. Correlation with an echocardiogram may be of value as clinically warranted. Contracted gallbladder. CXR today showed Mild increased enlargement of the cardiomediastinal silhouette. Differential possibilities include extensive mediastinal fat, cardiomyopathy, or pericardial effusion. There is no evidence of CHF. . Hospital Course For atrial fibrillation with RVR, patient was on digoxin and coreg, she developed bradycardia. Digoxin was discontinued, VR has been well controlled. Patient had one run of NSVT, she is on coreg. She will follow up with cardiology. For congestive heart failure, aldactone is added and she tolerates it well. For abdominal pain, CT scan of abdomen and pelvis is unremarkable. It is considered constipation related, laxative is given. Home Meds Active Scripts Linagliptin (TRADJENTA) 5 Mg Tablet, 5 MG PO DAILY for 30 Days, TAB Prov:LENIN AGGARWAL MD 05/24/16 Spironolactone* (Aldactone*) 25 Mg Tablet, 25 MG PO DAILY for 30 Days, TAB Prov:LENIN AGGARWAL MD 05/24/16 Reported Medications Levetiracetam* (Keppra*) 500 Mg Tablet, 1000 MG PO BID, TAB 05/21/16 Apixaban* (Eliquis*) 5 Mg Tablet, 5 MG PO BID, TAB 05/21/16 Divalproex Sodium* (Depakote*) 500 Mg Tablet.dr, 500 MG PO DAILY, #30 TAB 05/21/16 Carvedilol* (Carvedilol*) 12.5 Mg Tablet, 12.5 MG PO BID, #60 TAB 05/21/16 Metformin Hcl* (Metformin Hcl*) 1,000 Mg Tablet, 1000 MG PO WITH BREAKFAST DINNE , #60 TAB 05/21/16 Furosemide* (Furosemide*) 40 Mg Tablet, 40 MG PO DAILY, TAB 05/21/16 Benazepril Hcl* (Benazepril Hcl*) 20 Mg Tablet, 20 MG PO DAILY, #30 TAB 05/21/16 Discontinued Reported Medications Sitagliptin* (Januvia*) 100 Mg Tablet, 100 MG PO DAILY, #30 TAB 05/21/16 Glimepiride* (Glimepiride*) 4 Mg Tablet, 4 MG PO WITH BREAKFAST DINNE, TAB 01/03/16 Sitagliptin* (Januvia*) 100 Mg Tablet, 100 MG PO DAILY, #30 TAB 01/03/16 Metformin Hcl* (Metformin Hcl*) 1,000 Mg Tablet, 1000 MG PO WITH BREAKFAST DINNE , #30 TAB 01/03/16 Benazepril Hcl* (Benazepril Hcl*) 10 Mg Tablet, 10 MG PO DAILY 05/11/12 Furosemide (Lasix) 40 Mg Tab, 40 MG PO DAILY 05/11/12 Discontinued Scripts Digoxin* (Digitek*) 250 Mcg Tablet, 0.25 MG PO DAILY@13 for 30 Days, TAB Prov:BRITTANY HAYES NP 01/09/16 Atorvastatin* (Atorvastatin*) 40 Mg Tablet, 40 MG PO QHS, #60 TAB Prov:MAURILIO AMEZQUITA 05/12/16 Tiotropium [place]* (Spiriva*) 18 Mcg Cap.w.dev, 1 INH INH DAILY for 30 Days Prov:BRITTANY HAYES NP 01/09/16 Spironolactone* (Aldactone*) 25 Mg Tablet, 25 MG PO DAILY for 30 Days, TAB Prov:BRITTANY HAYES NP 01/09/16 Salmeterol Xinaf/Fluticasone* (Advair*) 250-50 Diskus Inhaler, 1 INH INH BID for 30 Days Prov:BRITTANY HAYES NP 01/09/16 Rivaroxaban* (Xarelto*) 20 Mg Tablet, 20 MG PO WITH DINNER for 30 Days, TAB Prov:BRITTANY HAYES NP 01/09/16 Montelukast Sodium* (Montelukast Sodium*) 10 Mg Tablet, 10 MG PO HS for 30 Days , TAB Prov:BRITTANY HAYES NP 01/09/16 Metoprolol Tartrate* (Lopressor*) 50 Mg Tab, 50 MG PO BID for 30 Days, TAB Prov:BRITTANY HAYES NP 01/09/16 Albuterol Sulfate* (Ventolin HFA*) 18 Gm Hfa.aer.ad, 2 PUFF INHALATION Q4H, #1 INHALER Prov:KEKE SMALLS MD 12/25/15 Follow-up Plan cardiology Dr. Nugent in 2 weeks PCP one week Pending Labs Laboratory Tests Test 05/24/16 07:25 Bedside Glucose 80mg/dL (70-220) LENIN AGGARWAL MD May 24, 2016 15:29
[2016-05-24] MEDS: morphine 4 MG/ML VIAL IV PRN (21:22)
[2016-05-25] VITALS (7 sets, daily range): BP systolic 104–121; BP diastolic 64–87; PULSE 67–92; RESP 18–20
[2016-05-25] MEDS: FUROSEMIDE 40 MG TAB PO SCH (06:05)
[2016-05-25] MEDS: metFORMIN 500 MG TAB PO SCH (07:43)
[2016-05-25 07:58] LABS: ALBUMIN 3.3 g/dl (3.3-4.9)
[2016-05-25 07:59] LABS: POTASSIUM 4.2 mmol/L (3.5-5.1)
[2016-05-25 08:01] LABS: ALBUMIN/GLOBULIN RATIO 1.06; BILIRUBIN,INDIRECT 0.6 mg/dl (0-1.1); BILIRUBIN,TOTAL 0.6 mg/dl (0.2-1.3); CREATININE 0.71 mg/dl (0.44-1.00); TOTAL PROTEIN 6.4 g/dl (6.1-8.1)
[2016-05-25 08:02] LABS: CALCIUM 8.9 mg/dl (8.4-10.2); MAGNESIUM 1.6 mg/dl (1.7-2.5)
[2016-05-25] MEDS: DIVALPROEX (EC) 500 MG TAB PO SCH (08:56)
[2016-05-25] MEDS: APIXABAN 5 MG TABLET PO SCH (08:57)
[2016-05-25] MEDS: SPIRONOLACTONE 25 MG TAB PO SCH (08:57)
[2016-05-25] MEDS: LEVETIRACETAM 500 MG TAB PO SCH (08:57)
[2016-05-25] MEDS: LINAGLIPTIN 5 MG TABLET PO SCH (08:57)
[2016-05-25] MEDS: BENAZEPRIL 20 MG TAB PO SCH (08:58)
[2016-05-25] MEDS ORDERED: MAGNESIUM SULFATE 2 GM/50 ML 50 ML IVPB ONE (13:00)
--- NOTE | 2016-05-25 13:40 | PN ---
DATE: 05/25/2016 SUBJECTIVE: Discussed with the staff. The rhythm strip was reviewed. Patient in atrial fibrillati on. Heart rate has remained stable and she is feeling much better. No chest pain or pressure. Wan ts to go home. MEDICATIONS: Reviewed. PHYSICAL EXAMINATION: VITAL SIGNS: Temperature 97.7, heart rate 84, blood pressure ____/87, respiration rate of 18. HEENT: Normocephalic, atraumatic. Pupils are equal. NECK: Oropharynx with poor dentition. CARDIOVASCULAR: Regular rate and rhythm, systolic murmur. PULMONARY: No wheezes or rhonchi. GASTROINTESTINAL: Soft, nontender. EXTREMITIES: With no significant lower extremity edema. NEUROLOGIC: Awake, responds appropriately. PSYCHIATRIC: Appears to be calm. LABORATORY: Sodium 142, potassium 4.2, BUN of 11, creatinine 0.71, glucose 87. Magnesium is 1.6. ASSESSMENT AND PLAN: 1. Atrial fibrillation, chronic. 2. Congestive heart failure. 3. Severe cardiomyopathy. 4. History of drug abuse. 5. Hypertension. 6. ____ abnormalities, history of episode of nonsustained VT, currently improved. RECOMMENDATIONS: I will replace the magnesium level. The rest of the cardiac care will be continue d. Patient is strongly advised to stay away from any street drugs. Dictated By: ABDI RASMUSSEN MD AV/NAGA Conf#: [id number] DID#: [id number] CC: MYRON RAMESH MD;*EndCC*
--- NOTE | 2016-05-25 14:35 | DS ---
Date/Time of Note Date/Time of Note DATE: 05/25/16 TIME: 14:34 Discharge Summary Admission/Discharge Info Admit Date/Time May 22, 2016 at 00:16 Discharge Date/Time Final Diagnosis 1. Atrial fibrillation, controlled VR, stopped digoxin and continue coreg and eliquis 2. Cardiomyopathy with Systolic Dysfunction Ejection Fraction of 20%. continue benazepril, coreg, lasix , on aldactone 3. Runs of Vtach (33 beats), on coreg, follow up with cardiology 4. COPD: stable 5. Pulmonary hypertension 6. Type 2 diabetes mellitus, oral metoformin and linagliptin 7. .Substance abuse: meth 8. Seizure disorder, on keppra Patient Condition: Stable Hx of Present Illness The patient is a 55-year-old female with a history of hypertension, atrial fibrillation, COPD, diabetes, substance abuse, and cardiomyopathy with systolic dysfunction with ejection fraction of 20% who presented to the emergency department with a chief complaint of diffuse abd pain and distention. In ER, she was found to be in Afib with RVR. The patient was last admitted here 2 weeks ago and also few months ago by myself for abd pain and she was found to be in Afib with RVR. She also now c/o intermittent palpitations. Previously she also presented with shortness of breath. At the time, she stated she was smoking methamphetamine and then she started having shortness of breath as well as palpitation and a pressure-like chest discomfort. She was also found to be in AFib with RVR at that time. Her recent 2-D echo showed an ejection fraction of 20% as well as moderate pulmonary hypertension and moderate to severe tricuspid regurgitation. 2 weeks ago, abd u/s and CT abd/pelvis was done with results as follows. CT abd/pelvis: Cardiomegaly with small bilateral pleural effusions. Dilatation of the hepatic veins suggest sequelae of right heart dysfunction. Diffuse mesenteric edema with small volume ascites. Diffuse subcutaneous soft tissue edema. Abd U/S: Small volume of ascites. Distended hepatic veins, questionable if this is related to right heart failure. Correlation with an echocardiogram may be of value as clinically warranted. Contracted gallbladder. CXR today showed Mild increased enlargement of the cardiomediastinal silhouette. Differential possibilities include extensive mediastinal fat, cardiomyopathy, or pericardial effusion. There is no evidence of CHF. . Hospital Course For atrial fibrillation with RVR, patient was on digoxin and coreg, she developed bradycardia. Digoxin was discontinued, VR has been well controlled. Patient had one run of NSVT, she is on coreg. She will follow up with cardiology. For congestive heart failure, aldactone is added and she tolerates it well. For abdominal pain, CT scan of abdomen and pelvis is unremarkable. It is considered constipation related, laxative is given. Home Meds Active Scripts Linagliptin (TRADJENTA) 5 Mg Tablet, 5 MG PO DAILY for 30 Days, TAB Prov:LENIN AGGARWAL MD 05/24/16 Spironolactone* (Aldactone*) 25 Mg Tablet, 25 MG PO DAILY for 30 Days, TAB Prov:LENIN AGGARWAL MD 05/24/16 Reported Medications Levetiracetam* (Keppra*) 500 Mg Tablet, 1000 MG PO BID, TAB 05/21/16 Apixaban* (Eliquis*) 5 Mg Tablet, 5 MG PO BID, TAB 05/21/16 Divalproex Sodium* (Depakote*) 500 Mg Tablet.dr, 500 MG PO DAILY, #30 TAB 05/21/16 Carvedilol* (Carvedilol*) 12.5 Mg Tablet, 12.5 MG PO BID, #60 TAB 05/21/16 Metformin Hcl* (Metformin Hcl*) 1,000 Mg Tablet, 1000 MG PO WITH BREAKFAST DINNE , #60 TAB 05/21/16 Furosemide* (Furosemide*) 40 Mg Tablet, 40 MG PO DAILY, TAB 05/21/16 Benazepril Hcl* (Benazepril Hcl*) 20 Mg Tablet, 20 MG PO DAILY, #30 TAB 05/21/16 Discontinued Reported Medications Sitagliptin* (Januvia*) 100 Mg Tablet, 100 MG PO DAILY, #30 TAB 05/21/16 Glimepiride* (Glimepiride*) 4 Mg Tablet, 4 MG PO WITH BREAKFAST DINNE, TAB 01/03/16 Sitagliptin* (Januvia*) 100 Mg Tablet, 100 MG PO DAILY, #30 TAB 01/03/16 Metformin Hcl* (Metformin Hcl*) 1,000 Mg Tablet, 1000 MG PO WITH BREAKFAST DINNE , #30 TAB 01/03/16 Benazepril Hcl* (Benazepril Hcl*) 10 Mg Tablet, 10 MG PO DAILY 05/11/12 Furosemide (Lasix) 40 Mg Tab, 40 MG PO DAILY 05/11/12 Discontinued Scripts Digoxin* (Digitek*) 250 Mcg Tablet, 0.25 MG PO DAILY@13 for 30 Days, TAB Prov:BRITTANY HAYES NP 01/09/16 Atorvastatin* (Atorvastatin*) 40 Mg Tablet, 40 MG PO QHS, #60 TAB Prov:MAURILIO AMEZQUITA 05/12/16 Tiotropium [place]* (Spiriva*) 18 Mcg Cap.w.dev, 1 INH INH DAILY for 30 Days Prov:BRITTANY HAYES NP 01/09/16 Spironolactone* (Aldactone*) 25 Mg Tablet, 25 MG PO DAILY for 30 Days, TAB Prov:BRITTANY HAYES NP 01/09/16 Salmeterol Xinaf/Fluticasone* (Advair*) 250-50 Diskus Inhaler, 1 INH INH BID for 30 Days Prov:BRITTANY HAYES NP 01/09/16 Rivaroxaban* (Xarelto*) 20 Mg Tablet, 20 MG PO WITH DINNER for 30 Days, TAB Prov:BRITTANY HAYES NP 01/09/16 Montelukast Sodium* (Montelukast Sodium*) 10 Mg Tablet, 10 MG PO HS for 30 Days , TAB Prov:BRITTANY HAYES NP 01/09/16 Metoprolol Tartrate* (Lopressor*) 50 Mg Tab, 50 MG PO BID for 30 Days, TAB Prov:BRITTANY HAYES NP 01/09/16 Albuterol Sulfate* (Ventolin HFA*) 18 Gm Hfa.aer.ad, 2 PUFF INHALATION Q4H, #1 INHALER Prov:KEKE SMALLS MD 12/25/15 Follow-up Plan follow up with PCP and cardiology in one week Pending Labs Laboratory Tests Test 05/25/16 07:00 05/25/16 07:41 Alanine Aminotransferase (ALT/SGPT) 35IU/L (13-69) Albumin 3.3g/dl (3.3-4.9) Albumin/Globulin Ratio 1.06 Alkaline Phosphatase 107IU/L (42-121) Anion Gap 16 (8-16) Aspartate Amino Transf (AST/SGOT) 39IU/L (15-46) Blood Urea Nitrogen 11mg/dl (7-20) Calcium Level 8.9mg/dl (8.4-10.2) Carbon Dioxide Level 30mmol/L (21-31) Chloride Level 101mmol/L (97-110) Creatinine 0.71mg/dl (0.44-1.00) Direct Bilirubin 0.00mg/dl (0.00-0.20) Globulin 3.10g/dl (1.3-3.2) Glucose Level 87mg/dl (70-220) Indirect Bilirubin 0.6mg/dl (0-1.1) Magnesium Level 1.6mg/dl (1.7-2.5) Potassium Level 4.2mmol/L (3.5-5.1) Sodium Level 143mmol/L (135-144) Total Bilirubin 0.6mg/dl (0.2-1.3) Total Protein 6.4g/dl (6.1-8.1) Bedside Glucose 91mg/dL (70-220) LENIN AGGARWAL MD May 25, 2016 14:35
== END 2016-05-25 16:55 | disposition home or self-care (01) | DRG 309 ==
LOC: E/R 15:02 → MS4 05-22 00:16
PROVIDERS: ADMIT Internal Medicine; ATTEND Internal Medicine
DX: I48.91 Unspecified atrial fibrillation (principal); E87.0 Hyperosmolality and hypernatremia; I47.2 Ventricular tachycardia; I42.9 Cardiomyopathy, unspecified; I50.22 Chronic systolic (congestive) heart failure; E11.65 Type 2 diabetes mellitus with hyperglycemia; G40.909 Epilepsy, unspecified, not intractable, without status epilepticus; J44.9 Chronic obstructive pulmonary disease, unspecified; F15.10 Other stimulant abuse, uncomplicated; R10.9 Unspecified abdominal pain; I86.8 Varicose veins of other specified sites; I27.2 Other secondary pulmonary hypertension; E87.6 Hypokalemia
CPT/HCPCS: 36415; 71010; 74000; 80053; 80162; 80307; 81001; 81003; 82962; 83605; 83690; 83735; 83880; 84484; 85025; 87081; 93005; 96374; J1940; J2270; J3475

== ENCOUNTER 2016-06-25 12:22 | Inpatient (IN) | payer OTHER ==
[~2016-06-25] VITALS: Ht 165.1 cm; Wt 77.3 kg
[2016-06-25] MEDS: INSULIN ASPART [NOVOLOG] 3 ML PEN SC SCH (01:00)
[~2016-06-25 12:22] MED LIST changes: -ADV25050 INH; -ALBU18HF INHALATION; +APIX5TAB PO; -ATOR40TA68 PO; -BENA10TA48 PO; +BENA20TA48 PO; +CARV12.579 PO; -DIGO250T PO; +DIVA500T7 PO; -GLIM4TAB PO; +LEVE-5 PO; +LINA5TAB PO; -METO-429 PO; -MONT10TA24 PO; -RIVA20TA PO; -SITA100T8 PO; -TIOT18CA INH
--- NOTE | 2016-06-25 12:25 | ERA ---
ER Documentation Chief Complaint Date/Time DATE: 06/25/16 TIME: 12:25 Chief Complaint Altered level consciousness HPI The patient is a 55-year-old female, presenting to the ER because of altered level of consciousness. Accu-Chek was 32, she was treated with glucagon 1 mg IM with minimal response, repeat Accu-Chek was 58 She was discovered by her caregiver today who called [phone] sent her to the hospital. She was last seen normal about 2 days ago. She only knows her name. She is unable to provide any history, the history is obtained from the dispatcher street department and medical record. She has history of amphetamine abuse Past medical history: Hypertension, diabetes mellitus, seizure disorder, atrial fibrillation, cardiomyopathy with low EF of 20%, COPD, pulmonary hypertension ROS All systems reviewed and are negative except as per history of present illness. Medications Home Meds Active Scripts Linagliptin (TRADJENTA) 5 Mg Tablet, 5 MG PO DAILY for 30 Days, TAB Prov:LENIN AGGARWAL MD 05/24/16 Spironolactone* (Aldactone*) 25 Mg Tablet, 25 MG PO DAILY for 30 Days, TAB Prov:LENIN AGGARWAL MD 05/24/16 Reported Medications Levetiracetam* (Keppra*) 500 Mg Tablet, 1000 MG PO BID, TAB 05/21/16 Apixaban* (Eliquis*) 5 Mg Tablet, 5 MG PO BID, TAB 05/21/16 Divalproex Sodium* (Depakote*) 500 Mg Tablet.dr, 500 MG PO DAILY, #30 TAB 05/21/16 Carvedilol* (Carvedilol*) 12.5 Mg Tablet, 12.5 MG PO BID, #60 TAB 05/21/16 Metformin Hcl* (Metformin Hcl*) 1,000 Mg Tablet, 1000 MG PO WITH BREAKFAST DINNE , #60 TAB 05/21/16 Furosemide* (Furosemide*) 40 Mg Tablet, 40 MG PO DAILY, TAB 05/21/16 Benazepril Hcl* (Benazepril Hcl*) 20 Mg Tablet, 20 MG PO DAILY, #30 TAB 05/21/16 Allergies Allergies: Coded Allergies: No Known Allergy (Unverified , 06/25/16) PMhx/Soc History of Surgery: Yes (Brain tumor remove 2015) Anesthesia Reaction: No Hx Neurological Disorder: Yes (CVA) Hx Respiratory Disorders: Yes (COPD) Hx Cardiac Disorders: Yes (HTN, CHF) Hx Psychiatric Problems: No Hx Miscellaneous Medical Probl: Yes (Methamphetamine abuse ) Hx Alcohol Use: No Hx Substance Use: No Hx Tobacco Use: Yes (former smoker) Physical Exam Vitals Vital Signs Date Time Temp Pulse Resp B/P Pulse Ox O2 Delivery O2 Flow Rate FiO2 06/25/16 16:27 96 17 125/54 100 Room Air 06/25/16 15:06 95 18 118/71 100 Room Air 06/25/16 13:38 83 17 100 Room Air 06/25/16 12:46 98.6 87 20 134/77 100 Physical Exam Const: No acute distress. Head: Atraumatic. Eyes: Normal Conjunctiva. ENT: Normal External Ears, Nose and Mouth. Neck: Full range of motion. No meningismus. Resp: Clear to auscultation bilaterally. Cardio: Irregularly irregular Abd: Soft, non distended, normal bowel sounds, non tender. Skin: No petechiae or rashes. Back: No midline or flank tenderness. Ext: No cyanosis, or edema. Neur: Limited all, only knows her name Psych: Unable to perform due to her condition Result Diagram: 06/25/16 1235 06/25/16 1235 Results 24 hrs Laboratory Tests Test 06/25/16 12:35 06/25/16 12:54 06/25/16 13:54 06/25/16 13:56 White Blood Count 7.010^3/ul Red Blood Count 5.2310^6/ul Hemoglobin 14.9g/dl Hematocrit 44.3% Mean Corpuscular Volume 84.7fl Mean Corpuscular Hemoglobin 28.5pg Mean Corpuscular Hemoglobin Concent 33.6g/dl Red Cell Distribution Width 15.1% Platelet Count 95679^3/UL Mean Platelet Volume 11.2fl Neutrophils % 82.3% Lymphocytes % 12.2% Monocytes % 2.9% Eosinophils % 1.9% Basophils % 0.3% Nucleated Red Blood Cells % 0.0/100WBC Neutrophils # 5.710^3/ul Lymphocytes # 0.910^3/ul Monocytes # 0.210^3/ul Eosinophils # 0.110^3/ul Basophils # 0.010^3/ul Nucleated Red Blood Cells # 0.010^3/ul Prothrombin Time 13.9Sec Prothrombin Time Ratio 1.1 INR International Normalized Ratio 1.07 Activated Partial Thromboplast Time 27.0Sec Sodium Level 140mmol/L Potassium Level 3.9mmol/L Chloride Level 97mmol/L Carbon Dioxide Level 29mmol/L Anion Gap 18 Blood Urea Nitrogen 25mg/dl Creatinine 0.72mg/dl Glucose Level 105mg/dl Lactic Acid Level 1.3mmol/L Calcium Level 10.2mg/dl Total Bilirubin 0.8mg/dl Direct Bilirubin 0.00mg/dl Indirect Bilirubin 0.8mg/dl Aspartate Amino Transf (AST/SGOT) 42IU/L Alanine Aminotransferase (ALT/SGPT) 23IU/L Alkaline Phosphatase 88IU/L Troponin I 0.024ng/ml Total Protein 8.2g/dl Albumin 4.8g/dl Globulin 3.40g/dl Albumin/Globulin Ratio 1.41 Digoxin Level 1.0ng/ml Salicylates Level < 1.0mg/dl Acetaminophen Level < 10.0ug/ml Ethyl Alcohol Level < 10.0mg/dl Bedside Glucose 165mg/dL 132mg/dL Urine Color LT. YELLOW Urine Clarity CLEAR Urine pH 6.0 Urine Specific [place] 1.015 Urine Ketones NEGATIVE Urine Nitrite NEGATIVE Urine Bilirubin NEGATIVE Urine Urobilinogen 0.2 E.U./dL Urine Leukocyte Esterase NEGATIVE Urine Microscopic RBC 0-2/HPF Urine Microscopic WBC 0-2/HPF Urine Epithelial Cells FEW Urine Bacteria RARE Urine Hemoglobin NEGATIVE Urine Glucose 0.25%% Urine Total Protein TRACE Urine Opiates Screen Negative Urine Barbiturates Negative Urine Amphetamines Screen POSITIVE Urine Benzodiazepines Screen Negative Urine Cocaine Screen Negative Urine Cannabinoids Negative Test 06/25/16 15:35 Lactic Acid Level 1.1mmol/L Current Medications Medications (Trade) Dose Ordered Sig/Marck Route PRN Reason Start Time Stop Time Status Last Admin Dose Admin Dextrose 50 ml 50 ml NOW STAT IV 06/25/16 12:27 06/25/16 12:29 DC 06/25/16 12:50 Dextrose (D10w) 1,000 ml @ 125 mls/hr Q8H IV 06/25/16 15:00 06/25/16 15:22 Procedures/MDM EKG: Read by emergency physician Rate/Rhythm: Atrial fibrillation 84 beats/min QRS, ST, T-waves: nonspecific ST and T abnormality, rightward axis Impression: Abnormal EKG [place] [id number] Radiology Main Line: [phone] DIAGNOSTIC IMAGING REPORT Patient: PAGE GUTIÉRREZ : 1960 Age: 55 Sex: F MR #: [id number] DOS: 06/25/16 1227 Ordering MD: NA OLIVERA MD Location: E/R Room/Bed: PROCEDURE: Chest x-ray CLINICAL INDICATION: Chest pain TECHNIQUE: Chest single view COMPARISON: 05/21/2016 FINDINGS: There is stable mild cardiomegaly.. The pulmonary vessels are normal in caliber. The lungs are clear. The costophrenic angles are sharp. The visualized bony thorax is unremarkable. IMPRESSION: No acute cardiopulmonary disease. Stable mild cardiomegaly RPTAT: HH .London Jesus MD, MD Date Time Electronically viewed and signed by .London Jesus MD, MD on 06/25/2016 13:29 .W/ CC: NA OLIVERA MD [place] [id number] Radiology Main Line: [phone] DIAGNOSTIC IMAGING REPORT Patient: PAGE GUTIÉRREZ : 1960 Age: 55 Sex: F MR #: [id number] DOS: 06/25/16 1227 Ordering MD: NA OLIVERA MD Location: E/R Room/Bed: PROCEDURE: CT cervical spine without contrast. CLINICAL INDICATION: Neck pain TECHNIQUE: CT of the cervical spine without contrast was performed on a multidetector CT scanner, with multiplanar reformats. One or more of the following dose reduction techniques were used: Automated exposure control, adjustment in mA and / or kV according to patient size, use of iterative reconstructive technique. CTDIvol = 22 mGy and DLP = 676 mGy-cm. COMPARISON: None available. FINDINGS: No fracture or dislocation is identified. There is straightening of the lordosis of the lower cervical spine. Alignment is intact. The vertebral bodies are maintained in height. There are anterior atlantoaxial joint degenerative changes. There is disk space narrowing, mild at C5-6, moderate C6- 7, moderate - severe at C7-T1 with anterior spondylosis at these levels. C2-3: No significant disc bulge or herniation is seen. There is no central canal stenosis or foraminal narrowing. C3-4: No significant disk bulge or herniation is seen. There is no central canal stenosis or foraminal narrowing. C4-5: No significant disk bulge or herniation is seen. There is facet arthropathy. There is no central canal stenosis or foraminal narrowing. C5-6: There is a posterior disk/osteophyte with mild to moderate central canal stenosis identified. There are uncovertebral osteophytes and facet arthropathy with mild - moderate bilateral foraminal narrowing C6-7: There is a posterior disk/osteophyte with mild to moderate central canal stenosis identified. There are uncovertebral osteophytes and facet arthropathy with moderate right and mild left foraminal narrowing. C7-T1: There is a posterior disk/osteophyte. No definite central canal stenosis is identified. There are uncovertebral osteophytes and facet arthropathy with moderate right and mild left foraminal narrowing. IMPRESSION: 1. No fracture/dislocation identified. 2. Cervical spondylosis, with mild to moderate central canal stenosis at C5-6 and C6-7, and multilevel foraminal narrowing detailed above. RPTAT: VV .Timothy Navas MD, MD Date Time Electronically viewed and signed by .Timothy Navas MD, MD on 06/25/2016 14:30 .O/ CC: NA OLIVERA MD [place] [id number] Radiology Main Line: [phone] DIAGNOSTIC IMAGING REPORT Patient: PAGE GUTIÉRREZ : 1960 Age: 55 Sex: F [id number] DOS: 06/25/16 1227 Ordering MD: NA OLIVERA MD Location: E/R Room/Bed: PROCEDURE: CT brain without contrast CLINICAL INDICATION: Altered mental status TECHNIQUE: CT of the brain without contrast performed on a multidetector CT scanner, with multiplanar reformats. One or more of the following dose reduction techniques were used: Automated exposure control, adjustment in mA and / or kV according to patient size, use of iterative reconstructive technique. CTDIvol = 45 mGy; DLP = 720 mGy-cm. COMPARISON: 05/09/2016 FINDINGS: No acute intracranial hemorrhage is identified. No extra-axial fluid collection is seen. There is no mass effect. No midline shift is identified. Ventricles and sulci are mildly enlarged compatible with generalized volume loss. Again demonstrated is an area of encephalomalacia involving the left frontal region and adjacent insula overlying parietal craniotomy . There are mild areas of hypodensity in the periventricular - deep white matter which are nonspecific but suggestive of chronic small vessel ischemic changes. Garcia- white differentiation is otherwise preserved. The sella remains partly empty. Atherosclerotic calcifications of the intracranial internal carotid arteries are noted. Osseous structures are unremarkable. Mastoid air cells and imaged paranasal sinuses grossly clear. IMPRESSION: 1. No evidence of acute intracranial pathology, or significant change. 2. Left frontal - insular encephalomalacia, likely chronic left middle cerebral artery territory infarct. 3. Mild generalized volume loss, with mild chronic small vessel ischemic changes. 4. Status post left parietal craniotomy. RPTAT: VV .Timothy Navas MD, MD Date Time Electronically viewed and signed by .Timothy Navas MD, on 06/25/2016 14:20 .O/ CC: NA OLIVERA MD MEDICAL MAKING DECISION: The patient is a 55-year-old female, presenting with acute encephalopathy, acute hypoglycemia, amphetamine abuse. She was treated with 1 amp of D50 IV and D10 water at 125 mL/h. she is getting better but still confused. The differential diagnoses considered include but are not limited to medication non-compliance, alcohol intoxication or withdrawal, drug intoxication or withdrawal, endocrine disorder, trauma, CVA, tumor, metabolic encephalopathy, septic encephalopathy. Departure Diagnosis: Primary Impression: Acute encephalopathy Additional Impressions: Acute metabolic encephalopathy due to hypoglycemia Amphetamine abuse Condition: Critical Comments I discussed the findings with the patient. I discussed the patient with the on- call hospitalist Dr. Carranza who was made aware of the lab, the treatment, the patient condition. The patient is admitted to ICU Critical Care: Time: 35 minutes excluding all billable procedures. Treatments/Evaluations: Close monitoring and treatment of unstable vital signs, cardiorespiratory, and neurologic status, while maintaining tight balance of fluid, respiratory, and cardiac interventions. NA OLIVERA MD Jun 25, 2016 12:25
[2016-06-25] MEDS ORDERED: DEXTROSE 50% 50 ML SYRINGE IV STA (12:27)
[2016-06-25 12:57] LABS: ADD SCAN DIFF NO
[2016-06-25 12:58] LABS: BASOPHILS % 0.3 % (0.0-2.0); EOSINOPHILS # 0.1 10^3/ul (0.0-0.5); EOSINOPHILS % 1.9 % (0.0-7.0); HEMATOCRIT 44.3 % (37.0-47.0); HEMOGLOBIN 14.9 g/dl (12.0-16.0); LYMPHOCYTES # 0.9 10^3/ul (0.8-2.9); LYMPHOCYTES % 12.2 % (15.0-51.0); MEAN CORPUSCULAR HEMOGLOBIN 28.5 pg (29.0-33.0); MEAN CORPUSCULAR HGB CONC 33.6 g/dl (32.0-37.0); MEAN CORPUSCULAR VOLUME 84.7 fl (82.0-101.0); MEAN PLATELET VOLUME 11.2 fl (7.4-10.4); MONOCYTE # 0.2 10^3/ul (0.3-0.9); MONOCYTES % 2.9 % (0.0-11.0); NEUTROPHIL # 5.7 10^3/ul (1.6-7.5); NEUTROPHILS % 82.3 % (39.0-77.0); PLATELET COUNT 191 10^3/UL (140-415); RED BLOOD COUNT 5.23 10^6/ul (4.20-5.40); RED CELL DISTRIBUTION WIDTH 15.1 % (11.5-14.5)
[2016-06-25 13:10] LABS: INR 1.07; PROTIME 13.9 Sec (12.2-14.2); PT RATIO 1.1
[2016-06-25 13:11] LABS: ALBUMIN 4.8 g/dl (3.3-4.9); CHLORIDE 97 mmol/L (97-110); POTASSIUM 3.9 mmol/L (3.5-5.1); SODIUM 140 mmol/L (135-144)
[2016-06-25 13:13] LABS: BILIRUBIN,INDIRECT 0.8 mg/dl (0-1.1); BILIRUBIN,TOTAL 0.8 mg/dl (0.2-1.3); CREATININE 0.72 mg/dl (0.44-1.00)
[2016-06-25 13:14] LABS: ALANINE AMINOTRANSFERASE 23 IU/L (13-69); ALBUMIN/GLOBULIN RATIO 1.41; ALKALINE PHOSPHATASE 88 IU/L (42-121); ANION GAP 18 (8-16); ASPARTATE AMINO TRANSFERASE 42 IU/L (15-46); BLOOD UREA NITROGEN 25 mg/dl (7-20); CALCIUM 10.2 mg/dl (8.4-10.2); CARBON DIOXIDE 29 mmol/L (21-31); GLUCOSE 105 mg/dl (70-220); TOTAL PROTEIN 8.2 g/dl (6.1-8.1)
[2016-06-25 13:15] LABS: ACETAMINOPHEN < 10.0 ug/ml (10.0-30.0); ETHANOL < 10.0 mg/dl; SALICYLATE < 1.0 mg/dl (5.0-30.0)
[2016-06-25 13:25] LABS: TROPONIN-I 0.024 ng/ml (0.00-0.12)
--- NOTE | 2016-06-25 13:29 | RADRPT ---
PROCEDURE: Chest x-ray CLINICAL INDICATION: Chest pain TECHNIQUE: Chest single view COMPARISON: 05/21/2016 FINDINGS: There is stable mild cardiomegaly.. The pulmonary vessels are normal in caliber. The lungs are yaneli ar. The costophrenic angles are sharp. The visualized bony thorax is unremarkable. IMPRESSION: No acute cardiopulmonary disease. Stable mild cardiomegaly RPTAT: HH .London Jesus MD, MD Date Time Electronically viewed and signed by .London Jesus MD, on 06/25/2016 13:29 .W/
[2016-06-25 14:06] LABS: ADD UMIC YES; URINE BILIRUBIN (Dip) NEGATIVE (NEGATIVE); URINE BLOOD (Dip) NEGATIVE (NEGATIVE); URINE COLOR LT. YELLOW (YELLOW); URINE KETONES (Dip) NEGATIVE (NEGATIVE); URINE LEUKOCYTE ESTERASE (Dip) NEGATIVE (NEGATIVE); URINE NITRITE (Dip) NEGATIVE (NEGATIVE); URINE TOTAL PROTEIN (Dip) TRACE (NEGATIVE); URINE UROBILINOGEN (Dip) 0.2 E.U./dL (0.1-1.0)
[2016-06-25 14:20] LABS: BARBITURATES Negative (NEGATIVE); BENZODIAZEPINES Negative (NEGATIVE); CANNABINOIDS Negative (NEGATIVE)
--- NOTE | 2016-06-25 14:20 | RADRPT ---
PROCEDURE: CT brain without contrast CLINICAL INDICATION: Altered mental status TECHNIQUE: CT of the brain without contrast performed on a multidetector CT scanner, with multiplan ar reformats. One or more of the following dose reduction techniques were used: Automated exposure control, adjustment in mA and / or kV according to patient size, use of iterative reconstructive amanda hnique. CTDIvol = 45 mGy; DLP = 720 mGy-cm. COMPARISON: 05/09/2016 FINDINGS: No acute intracranial hemorrhage is identified. No extra-axial fluid collection is seen. There is no mass effect. No midline shift is identified. Ventricles and sulci are mildly enlarged compatible with generalized volume loss. Again demonstrated is an area of encephalomalacia involving the left frontal region and adjacent ins kj overlying parietal craniotomy . There are mild areas of hypodensity in the periventricular - de ep white matter which are nonspecific but suggestive of chronic small vessel ischemic changes. Garcia -white differentiation is otherwise preserved. The sella remains partly empty. Atherosclerotic calcifications of the intracranial internal carotid arteries are noted. Osseous structures are unremarkable. Mastoid air cells and imaged paranasal sinuses grossly clear. IMPRESSION: 1. No evidence of acute intracranial pathology, or significant change. 2. Left frontal - insular encephalomalacia, likely chronic left middle cerebral artery territory in farct. 3. Mild generalized volume loss, with mild chronic small vessel ischemic changes. 4. Status post left parietal craniotomy. RPTAT: VV .Timothy Navas MD, MD Date Time Electronically viewed and signed by .Timothy Navas MD, MD on 06/25/2016 14:20 .O/
[2016-06-25 14:29] LABS: COCAINE Negative (NEGATIVE); OPIATES Negative (NEGATIVE)
--- NOTE | 2016-06-25 14:31 | RADRPT ---
PROCEDURE: CT cervical spine without contrast. CLINICAL INDICATION: Neck pain TECHNIQUE: CT of the cervical spine without contrast was performed on a multidetector CT scanner, w ith multiplanar reformats. One or more of the following dose reduction techniques were used: Automa pearl exposure control, adjustment in mA and / or kV according to patient size, use of iterative recon structive technique. CTDIvol = 22 mGy and DLP = 676 mGy-cm. COMPARISON: None available. FINDINGS: No fracture or dislocation is identified. There is straightening of the lordosis of the lower cervi ashutosh spine. Alignment is intact. The vertebral bodies are maintained in height. There are anterio r atlantoaxial joint degenerative changes. There is disk space narrowing, mild at C5-6, moderate C6 -7, moderate - severe at C7-T1 with anterior spondylosis at these levels. C2-3: No significant disc bulge or herniation is seen. There is no central canal stenosis or forami nal narrowing. C3-4: No significant disk bulge or herniation is seen. There is no central canal stenosis or forami nal narrowing. C4-5: No significant disk bulge or herniation is seen. There is facet arthropathy. There is no bailey tral canal stenosis or foraminal narrowing. C5-6: There is a posterior disk/osteophyte with mild to moderate central canal stenosis identified. There are uncovertebral osteophytes and facet arthropathy with mild - moderate bilateral foraminal narrowing C6-7: There is a posterior disk/osteophyte with mild to moderate central canal stenosis identified. There are uncovertebral osteophytes and facet arthropathy with moderate right and mild left forami nal narrowing. C7-T1: There is a posterior disk/osteophyte. No definite central canal stenosis is identified. The re are uncovertebral osteophytes and facet arthropathy with moderate right and mild left foraminal n arrowing. IMPRESSION: 1. No fracture/dislocation identified. 2. Cervical spondylosis, with mild to moderate central canal stenosis at C5-6 and C6-7, and multile lyle foraminal narrowing detailed above. RPTAT: VV .Timothy Navas MD, MD Date Time Electronically viewed and signed by .Timothy Navas MD, MD on 06/25/2016 14:30 .O/
[2016-06-25 14:32] LABS: BACTERIA,URINE RARE; URINE RBCS 0-2 /HPF (0)
[2016-06-25] MEDS ORDERED: DEXTROSE 10% 1,000 ML IV SCH (15:00)
[2016-06-25] MEDS ORDERED: DOCUSATE SODIUM 100 MG CAP PO PRN (16:30)
[2016-06-25] MEDS ORDERED: NITROGLYCERIN (SL) 0.4 MG TAB SL PRN (16:30)
[2016-06-25] MEDS ORDERED: ONDANSETRON 4 MG INJ IV PRN (16:30)
[2016-06-25] MEDS ORDERED: ACETAMINOPHEN 650MG/20.3ML CUP PO PRN (16:30)
[2016-06-25] MEDS ORDERED: ACETAMINOPHEN 325 MG TAB PO PRN (16:30)
[2016-06-25] MEDS ORDERED: LORAZEPAM 2 MG INJ IV PRN (16:30)
[2016-06-25] MEDS ORDERED: ALBUTEROL/IPRATROPIUM (NEB) 3 ML AMP NEB PRN (16:30)
[2016-06-25] MEDS ORDERED: GLUCAGON 1 MG INJ IM PRN (18:00)
[2016-06-25] MEDS ORDERED: GLUCOSE GEL 15 GRAM TUBE BUCCAL PRN (18:00)
[2016-06-25] MEDS ORDERED: DEXTROSE 50% 50 ML SYRINGE IV PRN (18:00)
[2016-06-25] MEDS ORDERED: GLUCOSE GEL 15 GRAM TUBE PO PRN ×2 (18:00)
[2016-06-25] MEDS: D5W-0.45 NACL + KCL 20 MEQ 1,000 ML IV SCH (18:50)
[2016-06-25 19:51] LABS: CK-MB 1.46 ng/ml (0.0-2.4)
[2016-06-25 19:54] LABS: TROPONIN-I 0.015 ng/ml (0.00-0.12)
--- NOTE | 2016-06-25 20:47 | HP ---
DATE OF ADMISSION: 06/25/2016 GLASS FITTER: Neurology. CHIEF COMPLAINT: Altered mental status. HISTORY OF PRESENT ILLNESS: This is a 55-year-old female with past medical history of atrial fibril lation, cardiomyopathy with systolic function of 20%, history of V-tach, dilation of hepatic vein, C OPD, pulmonary hypertension, diabetes mellitus type 2, history of substance use with methamphetamine , history of CVA who was last seen on 06/23/2016. Today, she was found by one of her frie nds. 911 was called and patient was brought into the emergency room. In the field, the patient was found to have a glucose of 32. She was treated with D50 and the glucose increased to 58, but she w as continued encephalopathic. She was not able to provide any information. Great amount of informa tion was obtained from the ER note and previous hospitalization notes. At this time, the patient is awake, alert, but not oriented to time, place, or self. The only thing she states at this time is "I don't know." She is not able to provide me with any information including her name or her date o f at this time. PAST MEDICAL AND SURGICAL HISTORY: As above per HPI. MEDICATIONS: 1. Eliquis. 2. Benazepril. 3. Coreg. 4. Depakote. 5. Lasix. 6. Keppra. 7. Tradjenta. 8. Metformin. 9. Aldactone. ALLERGIES: NO KNOWN DRUG ALLERGIES. FAMILY HISTORY: Unknown. SOCIAL HISTORY: Positive for history of daily smoker, history of alcohol use, history and current u se of amphetamine. REVIEW OF SYSTEMS: As above per HPI, otherwise unobtainable secondary to patient's encephalopathy. PHYSICAL EXAMINATION: VITAL SIGNS: Temperature 98.6, pulse 96, respirations 17, blood pressure 125/54, oxygen 100% in ryan m air. GENERAL APPEARANCE: The patient is lying in the bed comfortably. She is not agitated or aggressive . Body habitus mildly overweight. EYES AND ENT: Conjunctivae and lids are normal. Pupils are normal. Extraocular normal. Hearing g rossly normal. Lips and gums are normal. Oral mucosa is dry. There is poor dentition. NECK: Supple. Trachea is midline. No lymphadenopathy. RESPIRATORY: Effort is normal. Clear to auscultation bilaterally. CARDIOVASCULAR: Normal S1, S2. Regular rhythm and rate. No murmur, no bruits. Radial pulses palp able. Capillary refill is normal. CHEST: Normal expansion of thorax during inspiration. GASTROINTESTINAL: Abdomen contour is mildly overweight. Bowel sounds present. No guarding, no natalie ound. GENITOURINARY: Deferred. MUSCULOSKELETAL: Upper and lower extremities within normal limits. NEUROLOGIC: She is awake, alert, but not oriented. LABORATORY WORK: WBC 7.3, hemoglobin 14.9, hematocrit 44.3, platelets 191. Sodium 140, potassium 3 .9, chloride 97, bicarbonate 29, BUN 25, creatinine 0.72, glucose 105. Hemoglobin A1c 7.7. Calcium 10.2. LFTs all within normal limits. Troponin 0.024. EKG showed atrial fibrillation with ventricular rate [address]-T wave abnormality, right mansfield axis. IMAGING: Chest x-ray showed stable mild cardiomegaly. Pulmonary vessels are normal in caliber. Bonnie ngs are clear. No acute cardiopulmonary disease. CT of the brain without contrast showed no evidence of acute intracranial pathology. No significant changes. Left frontal encephalomalacia, likely chronic middle cerebral artery territory infarct. Mild generalized volume loss with mild chronic small vessel ischemic changes. Status post left brice etal craniotomy. ASSESSMENT AND PLAN: 1. Acute encephalopathy. 2. Acute metabolic encephalopathy due to hypoglycemia versus amphetamine abuse. 3. Amphetamine abuse. 4. Diabetes mellitus type 2 with hypoglycemia. 5. Essential hypertension. 6. Seizure disorder. 7. Essential hypertension. 8. Atrial fibrillation. 9. Pulmonary hypertension. 10. Congestive heart failure. PLAN: The patient will be admitted to telemetry floor. The acute encephalopathy is likely due to h ypoglycemia versus amphetamine abuse versus possible postictal secondary to her history of seizure d isorder. For atrial fibrillation, we will continue Coreg, Eliquis. For her blood pressure, continu e Coreg and benazepril. For seizure disorder, continue Keppra and Depakote. Neurology and endocrin ology have been consulted. We will place the patient on neuro checks every 4 hours at this time. D VT prophylaxis, continue Eliquis. At this time, we will make the patient n.p.o. except meds and we will do a bedside swallow evaluation and treat accordingly. CONDITION: Guarded. Dictated By: CHICHI TALLEY MD PN/NTS Conf#: [id number] [facility]#: [id number]
[2016-06-25] MEDS: FAMOTIDINE 20 MG INJ IV SCH (20:55)
[2016-06-25] MEDS: LEVETIRACETAM 500 MG TAB PO SCH (21:00)
[2016-06-25] MEDS: APIXABAN 5 MG TABLET PO SCH (21:00)
[2016-06-25] MEDS: DEXTROSE 50% 50 ML SYRINGE IV PRN ×2 (21:07→23:46)
[2016-06-26] VITALS (15 sets, daily range): BP systolic 83–117; BP diastolic 53–79; PULSE 66–153; RESP 15–20; Ht 165.1 cm; Wt 77.3 kg
[2016-06-26 00:22] LABS: CK-MB 0.95 ng/ml (0.0-2.4)
[2016-06-26 00:25] LABS: TROPONIN-I 0.018 ng/ml (0.00-0.12)
[2016-06-26] MEDS: INSULIN ASPART [NOVOLOG] 3 ML PEN SC SCH ×6 (01:00→21:14)
[2016-06-26] MEDS: D5W-0.45 NACL + KCL 20 MEQ 1,000 ML IV SCH ×2 (05:50→08:56)
--- NOTE | 2016-06-26 08:44 | CONS ---
Date/Time of Note Date/Time of Note DATE: 06/26/16 TIME: 08:35 Assessment/Plan Assessment/Plan Problems: (1) Acute encephalopathy Status: Acute Comment: Her encephalopathy at this point in time is a little worrisome. She has risk for prolonged encephalopathy is due to alcohol usage as well as her current recent crystal meth usage. She will need careful eye kept on her may need neurology consultation. This is not going to be easy (2) Amphetamine abuse Status: Acute Comment: In the hospital she will be free of active activity of this nature (3) Pulmonary hypertension Status: Chronic Comment: She has reports of COPD and has evidence of a on physical exam. We will try and get her treated for this as well as deal with the pulmonary hypertension. Please note this is having effects on her liver. In addition to this she has known hepatitis C antibody positive although she had negative viral RNA in April of this year. (4) Systolic CHF with reduced left ventricular function, NYHA class 3 Status: Chronic Comment: She will be on appropriate medications. Please note given the COPD carvedilol is not the best choice of metoprolol would be a better choice (5) Hypertension, essential Status: Chronic Comment: Titrate medications for heart failure and pulmonary hypertension as best tolerated (6) Diabetes mellitus type 2 in obese Status: Chronic Comment: She had hypoglycemia is unclear what medication she was taking. Regardless she is on a dextrose drip for the moment. She will continue on medications to as cyst for this and will keep a close eye on her. Given that the number of our should be in the hospital I believe the risk of hypoglycemia is less. One question is is a possible out hypoglycemia the altered mental status was due to status epilepticus this woman has had prior neurosurgery reported history of a seizure disorder? (7) Alcoholism /alcohol abuse Status: Chronic Comment: She will be on thiamine she is at high risk for withdrawal Consultation Date/Type/Reason Admit Date/Time Jun 26, 2016 at 01:13 Date of Consultation: Jun 27, 2016 Type of Consultation: Endocrinology Reason for Consultation Diabetes mellitus type 2 presenting with significant hypoglycemia per reports and altered mental status; elevated TSH Referring Provider: CHICHI TALLEY MD Hx of Present Illness 55-year-old female transferred to this facility by paramedics admitted by the emergency room. She had reportedly in the field been hypoglycemic and had been down for an unknown known amount of time possibly as long as 48 hours. She reportedly has a history of seizure disorder as well. At this time even giving her a chance to settle down in the hospital she is still extremely confused. She does not know what her medications are she reports she lives alone she does not know who her treating physicians are. In addition she is unable to identify where she is out and is suffering from anomia Constitutional: no complaints (Denies fever chills or sweats) Eyes: no complaints ENT: no complaints Respiratory: no complaints Cardiovascular: no complaints Gastrointestinal: no complaints Genitourinary: no complaints Past Medical History Organic heart disease; chronic atrial fibrillation; severe systolic dysfunction ; left atrial enlargement; elevated right pressures consistent with right-sided heart failure and pulmonary hypertension; COPD; diabetes mellitus type 2; hypertension; hyperlipidemia; tobacco abuse; status post left MCA CVA; cervical spine stenosis at C5-C6; crystal meth abuse; 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 Exam/Review of Systems Vital Signs Vitals Vital Signs Date Time Temp Pulse Resp B/P Pulse Ox O2 Delivery O2 Flow Rate FiO2 06/26/16 08:25 98.5 70 19 117/71 100 06/26/16 03:40 2.0 06/26/16 01:05 Nasal Cannula Intake and Output 06/25/16 06/25/16 06/26/16 15:00 23:00 07:00 Intake Total 750 ml Balance 750 ml Exam Constitutional: alert (Oriented times person only) Psych: anxiety Head: normocephalic, other (No evidence of acute head trauma) Eyes: EOMI, nl conjunctiva, nl lids, nl sclera ENMT: mucosa pink and moist, nl external ears & nose, nl lips & teeth, nl nasal mucosa & septum Neck: non-tender, supple, thyromegaly (Thyroid is modestly firm without dominant nodules) Respiratory: clear to auscultation, other (Increased AP diameter decreased IT ratio) Cardiovascular: edema, irregular rhythm, nl pulses Gastrointestinal: hepatomegaly, non-tender, other (Liver is modestly enlarged) , soft Extremities: edema (1+ edema), normal pulses Neurological: EARTH BURNER II-XII intact, confused (She is disoriented to person place and time is also not able to name common objects such as a pen glasses or ringing.), nl speech, nl strength Results Result Diagram: 06/25/16 1235 06/25/16 1235 Results 24 hrs Laboratory Tests Test 06/25/16 12:35 06/25/16 12:54 06/25/16 13:54 06/25/16 13:56 White Blood Count 7.0 # Red Blood Count 5.23 # Hemoglobin 14.9 # Hematocrit 44.3 Mean Corpuscular Volume 84.7 Mean Corpuscular Hemoglobin 28.5 L Mean Corpuscular Hemoglobin Concent 33.6 Red Cell Distribution Width 15.1 H Platelet Count 191 Mean Platelet Volume 11.2 H Neutrophils % 82.3 H Lymphocytes % 12.2 L Monocytes % 2.9 Eosinophils % 1.9 Basophils % 0.3 Nucleated Red Blood Cells % 0.0 Neutrophils # 5.7 Lymphocytes # 0.9 Monocytes # 0.2 L Eosinophils # 0.1 Basophils # 0.0 Nucleated Red Blood Cells # 0.0 Prothrombin Time 13.9 # Prothrombin Time Ratio 1.1 INR International Normalized Ratio 1.07 Activated Partial Thromboplast Time 27.0 Sodium Level 140 Potassium Level 3.9 Chloride Level 97 Carbon Dioxide Level 29 Anion Gap 18 H Blood Urea Nitrogen 25 H Creatinine 0.72 Glucose Level 105 Lactic Acid Level 1.3 Calcium Level 10.2 Total Bilirubin 0.8 Direct Bilirubin 0.00 Indirect Bilirubin 0.8 Aspartate Amino Transf (AST/SGOT) 42 Alanine Aminotransferase (ALT/SGPT) 23 Alkaline Phosphatase 88 Troponin I 0.024 Total Protein 8.2 H Albumin 4.8 Globulin 3.40 H Albumin/Globulin Ratio 1.41 Digoxin Level 1.0 Salicylates Level < 1.0 L Acetaminophen Level < 10.0 L Ethyl Alcohol Level < 10.0 Bedside Glucose 165 132 Urine Color LT. YELLOW Urine Clarity CLEAR Urine pH 6.0 Urine Specific [place] 1.015 Urine Ketones NEGATIVE Urine Nitrite NEGATIVE Urine Bilirubin NEGATIVE Urine Urobilinogen 0.2 E.U./dL Urine Leukocyte Esterase NEGATIVE Urine Microscopic RBC 0-2 Urine Microscopic WBC 0-2 Urine Epithelial Cells FEW Urine Bacteria RARE Urine Hemoglobin NEGATIVE Urine Glucose 0.25% H Urine Total Protein TRACE Urine Opiates Screen Negative Urine Barbiturates Negative Urine Amphetamines Screen POSITIVE Urine Benzodiazepines Screen Negative Urine Cocaine Screen Negative Urine Cannabinoids Negative Test 06/25/16 15:35 06/25/16 17:01 06/25/16 18:00 06/25/16 19:08 Lactic Acid Level 1.1 1.4 Bedside Glucose 73 62 L Creatine Kinase 36 Creatine Kinase Index 4.1 Creatinine Kinase MB (Mass) 1.46 Troponin I 0.015 Test 06/25/16 21:02 06/25/16 21:44 06/25/16 23:43 06/25/16 23:48 Bedside Glucose 53 L 80 62 L Lactic Acid Level 1.2 Creatine Kinase 35 Creatine Kinase Index 2.7 Creatinine Kinase MB (Mass) 0.95 Troponin I 0.018 Test 06/26/16 00:32 06/26/16 01:26 06/26/16 05:08 06/26/16 08:05 Bedside Glucose 102 96 93 94 Medications Medications Current Medications Apixaban (Eliquis) 5 mg BID PO ; Start 06/25/16 at 21:00 Benazepril HCl (Lotensin) 20 mg DAILY PO ; Start 06/26/16 at 09:00 Divalproex Sodium (Depakote) 500 mg DAILY PO ; Start 06/26/16 at 09:00 Furosemide (Lasix) 20 mg DAILY PO ; Start 06/26/16 at 09:00 Levetiracetam (Keppra) 1,000 mg BID PO ; Start 06/25/16 at 21:00 Spironolactone 25 mg 25 mg DAILY PO ; Start 06/26/16 at 09:00 Potassium Chloride/Dextrose/ Sod Cl (D5-1/2ns + KCl 20 Meq) 1,000 ml @ 75 mls/ hr [id number] IV Last administered on 06/25/16t 18:50; Admin Dose 75 MLS/HR; Start 06/25/16 at 16:30 Ondansetron HCl (Zofran Inj) 4 mg Q6H PRN IV NAUSEA AND/OR VOMITING; Start 06/25 at 16:30 Nitroglycerin (Nitroglycerin (Sl Tab) 0.4 Mg) 1 tab Q5M PRN SL CHEST PAIN; Start 06/25/16 at 16:30 Acetaminophen (Tylenol Liquid) 650 mg Q6H PRN PO PAIN LEVEL 1-3 OR FEVER; Start 06/25/16 at 16:30 Acetaminophen (Tylenol Tab) 650 mg Q6H PRN PO PAIN LEVEL 1-3 OR FEVER; Start at 16:30 Lorazepam (Ativan) 1 mg Q2H PRN IV ANXIETY Last administered on 06/25/16 19:30 ; Admin Dose 1 MG; Start 06/25/16 at 16:30 Docusate Sodium (Colace) 100 mg Q12H PRN PO CONSTIPATION; Start 06/25/16 at 16: 30 Famotidine (Pepcid Iv) 20 mg Q12 IV Last administered on 06/25/16 20:55; Admin Dose 20 MG; Start 06/25/16 at 21:00 Insulin Aspart (Novolog Insulin Pen) NOVOLOG *MILD* ALGORI... Q4 SC ; Start 06/25 at 21:00 Miscellaneous Information 1 ea NOTE XX ; Start 06/25/16 at 18:00 Glucose (Glutose) 15 gm Q15M PRN PO DECREASED GLUCOSE; Start 06/25/16 at 18:00 Glucose (Glutose) 22.5 gm Q15M PRN PO DECREASED GLUCOSE; Start 06/25/16 at 18:00 Dextrose (D50w Syringe) 25 ml Q15M PRN IV DECREASED GLUCOSE Last administered on 06/25/16 23:46; Admin Dose 25 ML; Start 06/25/16 at 18:00 Dextrose (D50w Syringe) 50 ml Q15M PRN IV DECREASED GLUCOSE; Start 06/25/16 at 18:00 Glucagon (Glucagen) 1 mg Q15M PRN IM DECREASED GLUCOSE; Start 06/25/16 at 18:00 Glucose (Glutose) 15 gm Q15M PRN BUCCAL DECREASED GLUCOSE; Start 06/25/16 at 18: 00 Metoprolol Succinate (Toprol Xl) 25 mg BID PO ; Start 06/26/16 at 09:00 VINICIO MONTOYA MD Jun 26, 2016 08:44
[2016-06-26] MEDS: FAMOTIDINE 20 MG INJ IV SCH ×2 (08:47→21:03)
[2016-06-26] MEDS: LEVETIRACETAM 500 MG TAB PO SCH ×2 (08:50→21:03)
[2016-06-26] MEDS: APIXABAN 5 MG TABLET PO SCH ×2 (08:50→21:18)
[2016-06-26] MEDS: SPIRONOLACTONE 25 MG TAB PO SCH (08:50)
[2016-06-26] MEDS: BENAZEPRIL 20 MG TAB PO SCH (08:51)
[2016-06-26] MEDS: METOPROLOL (XL) 25 MG TAB PO SCH ×2 (08:56→21:00)
[2016-06-26] MEDS: LINAGLIPTIN 5 MG TABLET PO SCH (08:57)
[2016-06-26] MEDS ORDERED: FUROSEMIDE 20 MG TAB PO SCH (09:00)
[2016-06-26] MEDS ORDERED: THIAMINE 100 MG TAB PO SCH (09:00)
[2016-06-26] MEDS ORDERED: MONTELUKAST 10 MG TAB PO ONE (10:30)
[2016-06-26] MEDS: DIVALPROEX (EC) 500 MG TAB PO SCH (10:34)
[2016-06-26] MEDS: SALMETEROL/FLUTICASONE 250/50 INHA INH SCH ×2 (10:34→21:03)
--- NOTE | 2016-06-26 10:40 | CONS ---
Date/Time of Note Date/Time of Note DATE: 06/26/16 TIME: 10:26 Assessment/Plan Assessment/Plan Chief Complaint/Hosp Course 55 year old female with history of methamphetamine abuse, cardiomyopathy, seizure disorder, DM, COPD found altered by a friend with severe hypoglycemia, with persistent aphasia and encephalopathy after correction. -continue AED currently on Keppra 1000 mg BID and Depakote 500 mg daily -check Valproic acid level -reinitiated on apixaban, unclear if she was compliant as coagulation labs appear wnl -MRI Brain without contrast ordered to evaluate for possible CVA exam does seem concerning for a global aphasia which could also be a result of her prior Left MCA stroke -Check B12, TSH, Folate -IV Thiamine ordered for Wernicke's Encephalopathy dosing 500 mg IV TID x 3 days -Routine EEG to rule out subclinical seizures, post-ictal state -will continue to follow Problems: Consultation Date/Type/Reason Admit Date/Time Jun 26, 2016 at 01:13 Date of Consultation: Jun 26, 2016 Type of Consultation: Neurology Reason for Consultation evaluation for encephalopathy,aphasia? 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 On EMS arrival FS: 32 she received D50, after glucose correct she continues to have severe encephalopathy and is unable to answer any questions. She repeats "I don't know " for all questions and is unable to provide any history. Head CT shows no evidence of acute process, with left frontal-insular encephalomalacia, previous Left MCA territory infarction. Chronic small vessel disease, with mild generalized volume loss, previous left craniotomy. unable to provide any information Constitutional: no complaints (Denies fever chills or sweats) Eyes: no complaints ENT: no complaints Respiratory: no complaints Cardiovascular: no complaints Gastrointestinal: no complaints Genitourinary: no complaints Psychological: anxiety Past Medical History per HPI Medical History: congestive heart failure Social History Alcohol Use: heavy Smoking Status: Smoker,current status unk Drug Use: other (Crystal meth actively) Exam/Review of Systems Vital Signs Vitals Vital Signs Date Time Temp Pulse Resp B/P Pulse Ox O2 Delivery O2 Flow Rate FiO2 06/26/16 08:25 98.5 70 19 117/71 100 06/26/16 03:40 2.0 06/26/16 01:05 Nasal Cannula Intake and Output 06/25/16 06/25/16 06/26/16 14:59 22:59 06:59 Intake Total 750 ml Balance 750 ml Exam awake and alert unable to assess orientation she responds to her name but is unable to state her name or her current location unable to state reason for admission she is inattentive and requires repeat stimulation can mimic commands and only follows 1 step commands she is unable to name simple objects- when shown a thumb she says "one" cannot name pen, she cannot name pen even when given several cues she is able to repeat , repetition is dysarthric and non-fluent most questions are answered with "i don't know" says yes intermittently mostly saying no suspect a global aphasia CN: RACIEL, VFF, EOMI blinks to threat no nystagmus, no facial asymmetry palate upgoing uvula midline scm/trap intact tongue midline Motor: poor effort able to move all extremities anti-gravity with no focal weakness appreciated Sensory withdraws to noxious stimuli throughout Coordination she is able to cooperate with no signs of ataxia Reflexes 1+ throughout toes are upgoing bilaterally Gait not assessed Results Result Diagram: 06/25/16 1235 06/25/16 1235 Results 24 hrs Laboratory Tests Test 06/25/16 12:35 06/25/16 12:54 06/25/16 13:54 06/25/16 13:56 White Blood Count 7.0 # Red Blood Count 5.23 # Hemoglobin 14.9 # Hematocrit 44.3 Mean Corpuscular Volume 84.7 Mean Corpuscular Hemoglobin 28.5 L Mean Corpuscular Hemoglobin Concent 33.6 Red Cell Distribution Width 15.1 H Platelet Count 191 Mean Platelet Volume 11.2 H Neutrophils % 82.3 H Lymphocytes % 12.2 L Monocytes % 2.9 Eosinophils % 1.9 Basophils % 0.3 Nucleated Red Blood Cells % 0.0 Neutrophils # 5.7 Lymphocytes # 0.9 Monocytes # 0.2 L Eosinophils # 0.1 Basophils # 0.0 Nucleated Red Blood Cells # 0.0 Prothrombin Time 13.9 # Prothrombin Time Ratio 1.1 INR International Normalized Ratio 1.07 Activated Partial Thromboplast Time 27.0 Sodium Level 140 Potassium Level 3.9 Chloride Level 97 Carbon Dioxide Level 29 Anion Gap 18 H Blood Urea Nitrogen 25 H Creatinine 0.72 Glucose Level 105 Lactic Acid Level 1.3 Calcium Level 10.2 Total Bilirubin 0.8 Direct Bilirubin 0.00 Indirect Bilirubin 0.8 Aspartate Amino Transf (AST/SGOT) 42 Alanine Aminotransferase (ALT/SGPT) 23 Alkaline Phosphatase 88 Troponin I 0.024 Total Protein 8.2 H Albumin 4.8 Globulin 3.40 H Albumin/Globulin Ratio 1.41 Digoxin Level 1.0 Salicylates Level < 1.0 L Acetaminophen Level < 10.0 L Ethyl Alcohol Level < 10.0 Bedside Glucose 165 132 Urine Color LT. YELLOW Urine Clarity CLEAR Urine pH 6.0 Urine Specific [place] 1.015 Urine Ketones NEGATIVE Urine Nitrite NEGATIVE Urine Bilirubin NEGATIVE Urine Urobilinogen 0.2 E.U./dL Urine Leukocyte Esterase NEGATIVE Urine Microscopic RBC 0-2 Urine Microscopic WBC 0-2 Urine Epithelial Cells FEW Urine Bacteria RARE Urine Hemoglobin NEGATIVE Urine Glucose 0.25% H Urine Total Protein TRACE Urine Opiates Screen Negative Urine Barbiturates Negative Urine Amphetamines Screen POSITIVE Urine Benzodiazepines Screen Negative Urine Cocaine Screen Negative Urine Cannabinoids Negative Test 06/25/16 15:35 06/25/16 17:01 06/25/16 18:00 06/25/16 19:08 Lactic Acid Level 1.1 1.4 Bedside Glucose 73 62 L Creatine Kinase 36 Creatine Kinase Index 4.1 Creatinine Kinase MB (Mass) 1.46 Troponin I 0.015 Test 06/25/16 21:02 06/25/16 21:44 06/25/16 23:43 06/25/16 23:48 Bedside Glucose 53 L 80 62 L Lactic Acid Level 1.2 Creatine Kinase 35 Creatine Kinase Index 2.7 Creatinine Kinase MB (Mass) 0.95 Troponin I 0.018 Test 06/26/16 00:32 06/26/16 01:26 06/26/16 05:08 06/26/16 08:05 Bedside Glucose 102 96 93 94 Medications Medications Current Medications Apixaban (Eliquis) 5 mg BID PO Last administered on 06/26/16t 08:50; Admin Dose 5 MG; Start 06/25/16 at 21:00 Benazepril HCl (Lotensin) 20 mg DAILY PO Last administered on 06/26/16 08:51; Admin Dose 20 MG; Start 06/26/16 at 09:00 Divalproex Sodium (Depakote) 500 mg DAILY PO ; Start 06/26/16 at 09:00 Furosemide (Lasix) 20 mg DAILY PO Last administered on 06/26/16 08:51; Admin Dose 20 MG; Start 06/26/16 at 09:00 Levetiracetam (Keppra) 1,000 mg BID PO Last administered on 06/26/16 08:50; Admin Dose 1,000 MG; Start 06/25/16 at 21:00 Spironolactone 25 mg 25 mg DAILY PO Last administered on 06/26/16 08:50; Admin Dose 25 MG; Start 06/26/16 at 09:00 Potassium Chloride/Dextrose/ Sod Cl (D5-1/2ns + KCl 20 Meq) 1,000 ml @ 75 mls/ hr [id number] IV Last administered on 06/26/16 08:56; Admin Dose 75 MLS/HR; Start 06/25/16 at 16:30 Ondansetron HCl (Zofran Inj) 4 mg Q6H PRN IV NAUSEA AND/OR VOMITING; Start 06/25 at 16:30 Nitroglycerin (Nitroglycerin (Sl Tab) 0.4 Mg) 1 tab Q5M PRN SL CHEST PAIN; Start 06/25/16 at 16:30 Acetaminophen (Tylenol Liquid) 650 mg Q6H PRN PO PAIN LEVEL 1-3 OR FEVER; Start 06/25/16 at 16:30 Acetaminophen (Tylenol Tab) 650 mg Q6H PRN PO PAIN LEVEL 1-3 OR FEVER; Start at 16:30 Lorazepam (Ativan) 1 mg Q2H PRN IV ANXIETY Last administered on 06/25/16 19:30 ; Admin Dose 1 MG; Start 06/25/16 at 16:30 Docusate Sodium (Colace) 100 mg Q12H PRN PO CONSTIPATION; Start 06/25/16 at 16: 30 Famotidine (Pepcid Iv) 20 mg Q12 IV Last administered on 06/26/16 08:47; Admin Dose 20 MG; Start 06/25/16 at 21:00 Insulin Aspart (Novolog Insulin Pen) NOVOLOG *MILD* ALGORI... Q4 SC ; Start 06/25 at 21:00 Miscellaneous Information 1 ea NOTE XX ; Start 06/25/16 at 18:00 Glucose (Glutose) 15 gm Q15M PRN PO DECREASED GLUCOSE; Start 06/25/16 at 18:00 Glucose (Glutose) 22.5 gm Q15M PRN PO DECREASED GLUCOSE; Start 06/25/16 at 18:00 Dextrose (D50w Syringe) 25 ml Q15M PRN IV DECREASED GLUCOSE Last administered on 06/25/16 23:46; Admin Dose 25 ML; Start 06/25/16 at 18:00 Dextrose (D50w Syringe) 50 ml Q15M PRN IV DECREASED GLUCOSE; Start 06/25/16 at 18:00 Glucagon (Glucagen) 1 mg Q15M PRN IM DECREASED GLUCOSE; Start 06/25/16 at 18:00 Glucose (Glutose) 15 gm Q15M PRN BUCCAL DECREASED GLUCOSE; Start 06/25/16 at 18: 00 Metoprolol Succinate (Toprol Xl) 25 mg BID PO Last administered on 06/26/16 08: 56; Admin Dose 25 MG; Start 06/26/16 at 09:00 Linagliptin (Tradjenta) 5 mg DAILY PO Last administered on 06/26/16 08:57; Admin Dose 5 MG; Start 06/26/16 at 09:00 Montelukast Sodium (Singulair) 10 mg ONCE ONCE PO ; Start 06/26/16 at 10:30; Stop 06/26/16 at 10:31 Montelukast Sodium (Singulair) 10 mg HS PO ; Start 06/26/16 at 21:00 Salmeterol Xinafoate/ Fluticasone 1 inh 1 inh BID INH ; Start 06/26/16 at 10:30 Thiamine HCl/ Sodium Chloride (Vitamin B1/NS) 105 ml @ 210 mls/hr TID IV ; Start 06/26/16 at 13:00; Stop 06/29/16 at 12:59 PAPI LOMBARDO MD Jun 26, 2016 10:36
[2016-06-26] MEDS ORDERED: THIAMINE 200 MG INJ IVPB SCH (13:00)
[2016-06-26] MEDS ORDERED: VANCOMYCIN IV PER PHARMACY XX SCH (13:30)
[2016-06-26] MEDS ORDERED: VANCOMYCIN 1.5 GM in SOD CHLORIDE 0.9% 250 ML IVPB ONE (14:30)
[2016-06-26] MEDS: THIAMINE 500 MG in SOD CHLORIDE 0.9% 100 ML IV SCH ×2 (14:52→21:20)
[2016-06-26] MEDS: CEFTRIAXONE 1 GM/50 ML (PMX) 50 ML IVPB SCH (14:56)
[2016-06-26 15:32] LABS: ADD SCAN DIFF NO
[2016-06-26 15:37] LABS: BASOPHILS % 0.3 % (0.0-2.0); EOSINOPHILS # 0.2 10^3/ul (0.0-0.5); HEMATOCRIT 40.2 % (37.0-47.0); LYMPHOCYTES # 1.5 10^3/ul (0.8-2.9); LYMPHOCYTES % 24.2 % (15.0-51.0); MEAN CORPUSCULAR HEMOGLOBIN 27.7 pg (29.0-33.0); MEAN CORPUSCULAR HGB CONC 32.3 g/dl (32.0-37.0); MEAN CORPUSCULAR VOLUME 85.5 fl (82.0-101.0); MEAN PLATELET VOLUME 10.9 fl (7.4-10.4); MONOCYTE # 0.4 10^3/ul (0.3-0.9); MONOCYTES % 7.1 % (0.0-11.0); NEUTROPHIL # 3.9 10^3/ul (1.6-7.5); NEUTROPHILS % 63.9 % (39.0-77.0); PLATELET COUNT 180 10^3/UL (140-415); RED CELL DISTRIBUTION WIDTH 15.8 % (11.5-14.5); WHITE BLOOD COUNT 6.1 10^3/ul (4.8-10.8)
[2016-06-26 15:53] LABS: CREATININE 0.73 mg/dl (0.44-1.00)
[2016-06-26 15:54] LABS: ALBUMIN/GLOBULIN RATIO 1.25; BILIRUBIN,INDIRECT 1.1 mg/dl (0-1.1); BILIRUBIN,TOTAL 1.1 mg/dl (0.2-1.3); CALCIUM 9.4 mg/dl (8.4-10.2); POTASSIUM 4.1 mmol/L (3.5-5.1); TOTAL PROTEIN 7.2 g/dl (6.1-8.1)
[2016-06-26 15:55] LABS: MAGNESIUM 1.3 mg/dl (1.7-2.5)
[2016-06-26 16:23] LABS: CK-MB 0.83 ng/ml (0.0-2.4)
[2016-06-26 16:26] LABS: TROPONIN-I 0.013 ng/ml (0.00-0.12)
--- NOTE | 2016-06-26 16:53 | PN ---
Date/Time of Note Date/Time of Note DATE: 06/26/16 TIME: 16:48 Assessment/Plan VTE Prophylaxis VTE Prophylaxis Intervention: other Lines/Catheters IV [facility]ter Type (from [facility]): Peripheral IV Urinary Cath still in place: No Assessment/Plan Chief Complaint/Hosp Course ASSESSMENT AND PLAN: 1. Acute encephalopathy. Improving, likely secondary to hypoglycemia with addition of amphetamine and alcohol use Neurology has been consulted. 2. Diabetes mellitus type 2 with hypoglycemia. Kitchen And Bath Designer has been consulted, will place the patient on low-carb diet and insulin sliding scale 3. Amphetamine abuse. Education has been provided, drug use cessation has been recommended. Social service has been consulted 4. Seizure disorder. Neurology has been consulted, no evidence of seizure activity during the course of hospitalization 5. Essential hypertension. Well-controlled on medical management 6. Atrial fibrillation. With 12 beats of V. tach yesterday evening, at this time patient is normal sinus rhythm, continue anticoagulation 7. Pulmonary hypertension. Continue medical management 8. Congestive heart failure. Continue medical management We will continue monitor patient closely for recommendation management treatment as clinical course Follow-up MRI of the brain PT OT eval and treat Appreciate consult input and management Problems: Subjective 24 Hr Interval Summary Free Text/Dictation Patient is more awake and alert She is having difficulty finding words and to express herself Denies any chest pain or shortness of breath Tolerating p.o. intake without any difficulty Exam/Review of Systems Vital Signs Vitals Vital Signs Date Time Temp Pulse Resp B/P Pulse Ox O2 Delivery O2 Flow Rate FiO2 06/26/16 16:00 90 06/26/16 15:50 98.5 19 107/59 95 06/26/16 03:40 2.0 06/26/16 01:05 Nasal Cannula Intake and Output 06/25/16 06/25/16 06/26/16 15:00 23:00 07:00 Intake Total 750 ml Balance 750 ml Exam General: The patient is well-developed, Not in acute distress. HEENT: Atraumatic, normocephalic. The pupils are equal and round . Neck: Supple with full range of motion. Chest: Normal expansion of the thorax during inspiration Lungs: Clear to auscultation bilaterally Heart: Normal S1-S2, Regular rhythm and rate. Abdomen: Soft , nontender, nondistended , bowel sounds are present. Extremities: Normal to inspection, no edema no cyanosis Neurologic: Normal mental status,The patient is awake, alert , minimal speech impairment with finding words Results Result Diagram: 06/26/16 1503 06/26/16 1503 Results 24 hrs Laboratory Tests Test 06/25/16 17:01 06/25/16 18:00 06/25/16 19:08 06/25/16 21:02 Bedside Glucose 73 62 L 53 L Lactic Acid Level 1.4 Creatine Kinase 36 Creatine Kinase Index 4.1 Creatinine Kinase MB (Mass) 1.46 Troponin I 0.015 Test 06/25/16 21:44 06/25/16 23:43 06/25/16 23:48 06/26/16 00:32 Bedside Glucose 80 62 L 102 Lactic Acid Level 1.2 Creatine Kinase 35 Creatine Kinase Index 2.7 Creatinine Kinase MB (Mass) 0.95 Troponin I 0.018 Test 06/26/16 01:26 06/26/16 05:08 06/26/16 08:05 06/26/16 12:11 Bedside Glucose 96 93 94 100 Test 06/26/16 15:03 White Blood Count 6.1 Red Blood Count 4.70 Hemoglobin 13.0 Hematocrit 40.2 Mean Corpuscular Volume 85.5 Mean Corpuscular Hemoglobin 27.7 L Mean Corpuscular Hemoglobin Concent 32.3 Red Cell Distribution Width 15.8 H Platelet Count 180 Mean Platelet Volume 10.9 H Neutrophils % 63.9 Lymphocytes % 24.2 Monocytes % 7.1 Eosinophils % 4.0 Basophils % 0.3 Nucleated Red Blood Cells % 0.0 Neutrophils # 3.9 Lymphocytes # 1.5 Monocytes # 0.4 Eosinophils # 0.2 Basophils # 0.0 Nucleated Red Blood Cells # 0.0 Sodium Level 138 Potassium Level 4.1 Chloride Level 96 L Carbon Dioxide Level 27 Anion Gap 19 H Blood Urea Nitrogen 12 # Creatinine 0.73 Glucose Level 220 # Calcium Level 9.4 Magnesium Level 1.3 L Total Bilirubin 1.1 Direct Bilirubin 0.00 Indirect Bilirubin 1.1 Aspartate Amino Transf (AST/SGOT) 38 Alanine Aminotransferase (ALT/SGPT) 26 Alkaline Phosphatase 69 Creatine Kinase 27 Creatine Kinase Index 3.1 Creatinine Kinase MB (Mass) 0.83 Troponin I 0.013 Total Protein 7.2 # Albumin 4.0 Globulin 3.20 Albumin/Globulin Ratio 1.25 Vitamin B12 Level 470 Folate Pending Thyroid Stimulating Hormone (TSH) Pending Random Cortisol 7.5 Valproic Acid (Depakene) Level < 10 L Medications Medications Current Medications Apixaban (Eliquis) 5 mg BID PO Last administered on 06/26/16 08:50; Admin Dose 5 MG; Start 06/25/16 at 21:00 Benazepril HCl (Lotensin) 20 mg DAILY PO Last administered on 06/26/16 08:51; Admin Dose 20 MG; Start 06/26/16 at 09:00 Divalproex Sodium (Depakote) 500 mg DAILY PO Last administered on 06/26/16 10: 34; Admin Dose 500 MG; Start 06/26/16 at 09:00 Furosemide (Lasix) 20 mg DAILY PO Last administered on 06/26/16 08:51; Admin Dose 20 MG; Start 06/26/16 at 09:00 Levetiracetam (Keppra) 1,000 mg BID PO Last administered on 06/26/16 08:50; Admin Dose 1,000 MG; Start 06/25/16 at 21:00 Spironolactone (Aldactone) 25 mg DAILY PO Last administered on 06/26/16 08:50; Admin Dose 25 MG; Start 06/26/16 at 09:00 Ondansetron HCl (Zofran Inj) 4 mg Q6H PRN IV NAUSEA AND/OR VOMITING; Start 06/25 at 16:30 Nitroglycerin (Nitroglycerin (Sl Tab) 0.4 Mg) 1 tab Q5M PRN SL CHEST PAIN; Start 06/25/16 at 16:30 Acetaminophen (Tylenol Liquid) 650 mg Q6H PRN PO PAIN LEVEL 1-3 OR FEVER; Start 06/25/16 at 16:30 Acetaminophen (Tylenol Tab) 650 mg Q6H PRN PO PAIN LEVEL 1-3 OR FEVER; Start at 16:30 Lorazepam (Ativan) 1 mg Q2H PRN IV ANXIETY Last administered on 06/25/16 19:30 ; Admin Dose 1 MG; Start 06/25/16 at 16:30 Docusate Sodium (Colace) 100 mg Q12H PRN PO CONSTIPATION; Start 06/25/16 at 16: 30 Famotidine (Pepcid Iv) 20 mg Q12 IV Last administered on 06/26/16 08:47; Admin Dose 20 MG; Start 06/25/16 at 21:00 Miscellaneous Information 1 ea NOTE XX ; Start 06/25/16 at 18:00 Glucose (Glutose) 15 gm Q15M PRN PO DECREASED GLUCOSE; Start 06/25/16 at 18:00 Glucose (Glutose) 22.5 gm Q15M PRN PO DECREASED GLUCOSE; Start 06/25/16 at 18:00 Dextrose (D50w Syringe) 25 ml Q15M PRN IV DECREASED GLUCOSE Last administered on 06/25/16 23:46; Admin Dose 25 ML; Start 06/25/16 at 18:00 Dextrose (D50w Syringe) 50 ml Q15M PRN IV DECREASED GLUCOSE; Start 06/25/16 at 18:00 Glucagon (Glucagen) 1 mg Q15M PRN IM DECREASED GLUCOSE; Start 06/25/16 at 18:00 Glucose (Glutose) 15 gm Q15M PRN BUCCAL DECREASED GLUCOSE; Start 06/25/16 at 18: 00 Metoprolol Succinate (Toprol Xl) 25 mg BID PO Last administered on 06/26/16 08: 56; Admin Dose 25 MG; Start 06/26/16 at 09:00 Linagliptin (Tradjenta) 5 mg DAILY PO Last administered on 06/26/16 08:57; Admin Dose 5 MG; Start 06/26/16 at 09:00 Montelukast Sodium (Singulair) 10 mg HS PO ; Start 06/26/16 at 21:00 Salmeterol Xinafoate/ Fluticasone 1 inh 1 inh BID INH Last administered on 10:34; Admin Dose 1 INH; Start 06/26/16 at 10:30 Thiamine HCl 500 mg/Sodium Chloride 105 ml @ 210 mls/hr TID IV Last administered on 06/26/16 14:52; Admin Dose 210 MLS/HR; Start 06/26/16 at 13:00; Stop 06/29/16 at 12:59 Ceftriaxone Sodium 50 ml @ 100 mls/hr Q24H IVPB Last administered on 06/26/16 14:56; Admin Dose 100 MLS/HR; Start 06/26/16 at 13:30 Vancomycin HCl/ Sodium Chloride (Vancocin/NS) 150 ml @ 75 mls/hr Q12H IVPB ; Start 06/27/16 at 02:30 CHICHI TALLEY MD Jun 26, 2016 16:53
[2016-06-26 16:56] LABS: FOLATE 14.8 ng/ml (2.8-20.0)
[2016-06-26 17:07] LABS: THYROID STIMULATING HORMONE 5.9 MIU/L (0.465-4.680)
[2016-06-26] MEDS: MONTELUKAST 10 MG TAB PO SCH (21:04)
[2016-06-27] VITALS (14 sets, daily range): BP systolic 80–123; BP diastolic 50–87; PULSE 82–109; RESP 16–20
[2016-06-27] MEDS: VANCOMYCIN 750 MG in SOD CHLORIDE 0.9% 150 ML IVPB SCH ×2 (03:51→17:43)
--- NOTE | 2016-06-27 08:42 | CONS ---
DATE OF ADMISSION: 06/26/2016 DATE OF CONSULTATION: 06/27/2016 CARDIOLOGY CONSULTATION REASON FOR CONSULTATION: Atrial fibrillation. CHIEF COMPLAINT: Encephalopathy. HISTORY OF PRESENT ILLNESS: Thank you for this referral. The patient is a poor historian, ghada e review of the old chart, discussion with multiple physicians and staff. The patient's old chart w as reviewed. This unfortunate 55-year-old female with history of cocaine abuse, severe cardiomyopat hy, atrial fibrillation, has recurrent admissions to the hospital. Each time she was noted to have used amphetamines and substance abuse. She was in atrial fibrillation with rapid ventricular respon se. This time she was found to be unresponsive. She was found by her caregiver apparently. Sugar was reportedly 32. She was given D50. She was in atrial fibrillation. Heart rate has remained sta ble, overall, though. The patient denies any chest pain or pressure to me at this time, is more jenny ke and responsive. Denies any palpitation to me. Denies any shortness of breath, dyspnea, PND, ort hopnea to me. PAST MEDICAL HISTORY: History of atrial fibrillation, history of severe cardiomyopathy, most likely nonischemic, history of substance abuse, COPD, pulmonary hypertension, history of nonsustained VTs, history of CVA. MEDICATIONS: She is supposed to be on: 1. Eliquis. 2. Benazepril. 3. Coreg. 4. Depakote. 5. Lasix. 6. Keppra. 7. ____. 8. Metformin. 9. Aldactone. She said that she is taking them, but she is unreliable. ALLERGIES: NO REPORTED ALLERGIES. FAMILY HISTORY: No reported early coronary artery disease. SOCIAL HISTORY: The patient does smoke. The patient has a history of drug and alcohol use. Has us ed amphetamines. REVIEW OF SYSTEMS: As above mentioned. PHYSICAL EXAMINATION: HEENT: Normocephalic with evidence of facial trauma. She is not sure why she got it or how she got it. Eyes: Pupils are equal. CARDIOVASCULAR: Irregularly irregular. Systolic murmur. PULMONARY: With no wheezes heard. GASTROINTESTINAL: Soft, nontender. EXTREMITIES: No significant edema. NEUROLOGIC: Awake and alert at this point. PSYCHIATRIC: Appears to be calm. LABORATORY: Shows a WBC of 6.1, hemoglobin 13, platelets of 180. Sodium 138, potassium 4.1, BUN of 12, creatinine 0.73, glucose of 220. TSH of 5.9. EKG showed atrial fibrillation, occasional PVCs. Nonspecific ST-T abnormalities. ASSESSMENT AND PLAN: 1. Atrial fibrillation, appeared to be chronic, on anticoagulation. 2. Severe cardiomyopathy, most likely nonischemic. 3. History of hypertension. 4. History of diabetes. 5. History of drug recurrent drug use. 6. Encephalopathy. 7. Hypoglycemia. RECOMMENDATIONS: Antibiotic as per internal medicine. Diabetic management as per Dr. Grider and ass ociates. I will discontinue the Lasix since the patient does not appear to be fluid overloaded now. Will add digoxin to her regimen. We will continue the beta avery as tolerated. The patient has been strongly advised multiple times to stop alcohol and drug abuse. We will check a digoxin level tomorrow, follow up with neurology recommendations. The patient's long-term prognosis is going to be poor if she continues to use drugs. Consider discharge planning to a [facility] or a place jonelle t she can monitor and recurrent drug use. Dictated By: ABDI RASMUSSEN MD AV/NAGA Conf#: [id number] DID#: [id number] CC: CHICHI TALLEY MD;*EndCC*
[2016-06-27] MEDS: LINAGLIPTIN 5 MG TABLET PO SCH (09:09)
[2016-06-27] MEDS: LEVETIRACETAM 500 MG TAB PO SCH ×2 (09:09→20:48)
[2016-06-27] MEDS: SALMETEROL/FLUTICASONE 250/50 INHA INH SCH ×2 (09:10→20:49)
[2016-06-27] MEDS: APIXABAN 5 MG TABLET PO SCH ×2 (09:10→20:48)
[2016-06-27] MEDS: DIVALPROEX (EC) 500 MG TAB PO SCH (09:10)
[2016-06-27] MEDS: FAMOTIDINE 20 MG INJ IV SCH ×2 (09:10→20:48)
[2016-06-27] MEDS: SPIRONOLACTONE 25 MG TAB PO SCH (09:14)
[2016-06-27] MEDS: BENAZEPRIL 20 MG TAB PO SCH (09:14)
[2016-06-27] MEDS: METOPROLOL (XL) 25 MG TAB PO SCH ×2 (09:14→20:48)
[2016-06-27] MEDS: THIAMINE 500 MG in SOD CHLORIDE 0.9% 100 ML IV SCH ×3 (09:18→20:49)
[2016-06-27] MEDS: INSULIN ASPART [NOVOLOG] 3 ML PEN SC SCH ×4 (09:19→20:50)
--- NOTE | 2016-06-27 10:13 | SP ---
DATE OF PROCEDURE: 06/26/2016 PROCEDURE: Electroencephalogram. HISTORY: This is a 55-year-old woman with history of methamphetamine abuse, cardiomyopathy and seiz ure disorder, who was admitted following found altered. CURRENT MEDICATIONS: 1. Singulair 2. Advair. 3. Lotensin. 4. Depakote. 5. Lasix. 6. Aldactone. 7. Eliquis. 8. Keppra. PROCEDURE: Utilizing a 16-channel EEG machine, cap scalp electrodes were applied in accordance with International 10-20 system. [id number] and [id number] montages were displayed. Electrical i mpedances were measured and reported. DESCRIPTION: During the resting state a posterior dominant rhythm of about 8 to 9 Hz were seen bihe mispherically. Photic stimulation had a good response. Hyperventilation was not performed. Left t emporal sharps were noted at times during the tracing. INTERPRETATION: This is an abnormal EEG because of presence of left temporal sharps which could be epileptogenic. Please correlate with the patient's clinical history and examination. Dictated By: MARY FRY/NAGA Conf#: [id number] DID#: [id number]
--- NOTE | 2016-06-27 12:08 | CONS ---
Date/Time of Note Date/Time of Note DATE: 06/27/16 TIME: 12:05 Consult Date/Type/Reason Admit Date/Time Jun 26, 2016 at 01:13 Initial Consult Date 06/26/16 Type of Consultation: Neurology Reason for Consultation encephalopathy aphasia Ordering Provider: CHICHI TALLEY MD Subjective awake and alert comfortable no complaints Objective Vital Signs Date Time Temp Pulse Resp B/P Pulse Ox O2 Delivery O2 Flow Rate FiO2 06/27/16 08:30 82 06/27/16 08:00 97.8 20 90/69 97 06/26/16 03:40 2.0 06/26/16 01:05 Nasal Cannula Intake and Output 06/26/16 06/26/16 06/27/16 15:00 23:00 07:00 Intake Total 600 ml 560 ml Balance 600 ml 560 ml Exam awake and alert oriented to location she says [place] unable to state the date says number 6 for the date when asked who she lives with she says none is able to follow simple commands well suspect more expressive aphasia no neglect CN: II-XII intact Motor intact throughout no drift Coordination no ataxia Reflexes symmetric throughout toes down Results/Medications Result Diagram: 06/26/16 1503 06/26/16 1503 Results 24 hrs Laboratory Tests Test 06/26/16 12:11 06/26/16 15:03 06/26/16 17:07 06/26/16 21:01 Bedside Glucose 100 136 226 H White Blood Count 6.1 Red Blood Count 4.70 Hemoglobin 13.0 Hematocrit 40.2 Mean Corpuscular Volume 85.5 Mean Corpuscular Hemoglobin 27.7 L Mean Corpuscular Hemoglobin Concent 32.3 Red Cell Distribution Width 15.8 H Platelet Count 180 Mean Platelet Volume 10.9 H Neutrophils % 63.9 Lymphocytes % 24.2 Monocytes % 7.1 Eosinophils % 4.0 Basophils % 0.3 Nucleated Red Blood Cells % 0.0 Neutrophils # 3.9 Lymphocytes # 1.5 Monocytes # 0.4 Eosinophils # 0.2 Basophils # 0.0 Nucleated Red Blood Cells # 0.0 Sodium Level 138 Potassium Level 4.1 Chloride Level 96 L Carbon Dioxide Level 27 Anion Gap 19 H Blood Urea Nitrogen 12 # Creatinine 0.73 Glucose Level 220 # Calcium Level 9.4 Magnesium Level 1.3 L Total Bilirubin 1.1 Direct Bilirubin 0.00 Indirect Bilirubin 1.1 Aspartate Amino Transf (AST/SGOT) 38 Alanine Aminotransferase (ALT/SGPT) 26 Alkaline Phosphatase 69 Creatine Kinase 27 Creatine Kinase Index 3.1 Creatinine Kinase MB (Mass) 0.83 Troponin I 0.013 Total Protein 7.2 # Albumin 4.0 Globulin 3.20 Albumin/Globulin Ratio 1.25 Vitamin B12 Level 470 Folate 14.8 Thyroid Stimulating Hormone (TSH) 5.900 H Random Cortisol 7.5 Valproic Acid (Depakene) Level < 10 L Test 06/27/16 08:09 Bedside Glucose 142 Medications Current Medications Apixaban (Eliquis) 5 mg BID PO Last administered on 06/27/16 09:10; Admin Dose 5 MG; Start 06/25/16 at 21:00 Benazepril HCl (Lotensin) 20 mg DAILY PO Last administered on 06/27/16 09:14; Admin Dose 20 MG; Start 06/26/16 at 09:00 Divalproex Sodium (Depakote) 500 mg DAILY PO Last administered on 06/27/16 09: 10; Admin Dose 500 MG; Start 06/26/16 at 09:00 Levetiracetam (Keppra) 1,000 mg BID PO Last administered on 06/27/16 09:09; Admin Dose 1,000 MG; Start 06/25/16 at 21:00 Spironolactone (Aldactone) 25 mg DAILY PO Last administered on 06/27/16 09:14; Admin Dose 25 MG; Start 06/26/16 at 09:00 Ondansetron HCl (Zofran Inj) 4 mg Q6H PRN IV NAUSEA AND/OR VOMITING; Start 06/25 at 16:30 Nitroglycerin (Nitroglycerin (Sl Tab) 0.4 Mg) 1 tab Q5M PRN SL CHEST PAIN; Start 06/25/16 at 16:30 Acetaminophen (Tylenol Liquid) 650 mg Q6H PRN PO PAIN LEVEL 1-3 OR FEVER; Start 06/25/16 at 16:30 Acetaminophen (Tylenol Tab) 650 mg Q6H PRN PO PAIN LEVEL 1-3 OR FEVER; Start at 16:30 Lorazepam (Ativan) 1 mg Q2H PRN IV ANXIETY Last administered on 06/25/16 19:30 ; Admin Dose 1 MG; Start 06/25/16 at 16:30 Docusate Sodium (Colace) 100 mg Q12H PRN PO CONSTIPATION; Start 06/25/16 at 16: 30 Famotidine (Pepcid Iv) 20 mg Q12 IV Last administered on 06/27/16 09:10; Admin Dose 20 MG; Start 06/25/16 at 21:00 Miscellaneous Information 1 ea NOTE XX ; Start 06/25/16 at 18:00 Glucose (Glutose) 15 gm Q15M PRN PO DECREASED GLUCOSE; Start 06/25/16 at 18:00 Glucose (Glutose) 22.5 gm Q15M PRN PO DECREASED GLUCOSE; Start 06/25/16 at 18:00 Dextrose (D50w Syringe) 25 ml Q15M PRN IV DECREASED GLUCOSE Last administered on 06/25/16 23:46; Admin Dose 25 ML; Start 06/25/16 at 18:00 Dextrose (D50w Syringe) 50 ml Q15M PRN IV DECREASED GLUCOSE; Start 06/25/16 at 18:00 Glucagon (Glucagen) 1 mg Q15M PRN IM DECREASED GLUCOSE; Start 06/25/16 at 18:00 Glucose (Glutose) 15 gm Q15M PRN BUCCAL DECREASED GLUCOSE; Start 06/25/16 at 18: 00 Metoprolol Succinate (Toprol Xl) 25 mg BID PO Last administered on 06/27/16 09: 14; Admin Dose 25 MG; Start 06/26/16 at 09:00 Linagliptin (Tradjenta) 5 mg DAILY PO Last administered on 06/27/16 09:09; Admin Dose 5 MG; Start 06/26/16 at 09:00 Montelukast Sodium (Singulair) 10 mg HS PO Last administered on 06/26/16 21:04 ; Admin Dose 10 MG; Start 06/26/16 at 21:00 Salmeterol Xinafoate/ Fluticasone 1 inh 1 inh BID INH Last administered on 09:10; Admin Dose 1 INH; Start 06/26/16 at 10:30 Thiamine HCl 500 mg/Sodium Chloride 105 ml @ 210 mls/hr TID IV Last administered on 06/27/16 09:18; Admin Dose 210 MLS/HR; Start 06/26/16 at 13:00; Stop 06/29/16 at 12:59 Ceftriaxone Sodium 50 ml @ 100 mls/hr Q24H IVPB Last administered on 06/26/16 14:56; Admin Dose 100 MLS/HR; Start 06/26/16 at 13:30 Vancomycin HCl/ Sodium Chloride (Vancocin/NS) 150 ml @ 75 mls/hr Q12H IVPB Last administered on 06/27/16 03:51; Admin Dose 75 MLS/HR; Start 06/27/16 at 02: 30 Digoxin (Digoxin) 0.125 mg DAILY@13 PO ; Start 06/27/16 at 13:00 Assessment/Plan Chief Complaint/Hosp Course 55 year old female with history of methamphetamine abuse, cardiomyopathy, seizure disorder, DM, COPD found altered by a friend with severe hypoglycemia, with persistent aphasia and encephalopathy after correction. -continue AED currently on Keppra 1000 mg BID and Depakote 500 mg daily -VPA level undetectable likely has not been compliant -reinitiated on apixaban, continue for secondary stroke prevention from afib -MRI Brain without contrast ordered to evaluate for possible CVA exam does seem concerning for a global aphasia which could also be a result of her prior Left MCA stroke -Check B12, TSH, Folate -IV Thiamine ordered for Wernicke's Encephalopathy dosing 500 mg IV TID x 3 days -Routine EEG to rule out subclinical seizures, post-ictal state pending official review -abstinence from substance abuse -will continue to follow Problems: PAPI LOMBARDO MD Jun 27, 2016 12:08
[2016-06-27] MEDS: DIGOXIN 0.125 MG TAB PO SCH (14:00)
[2016-06-27] MEDS: CEFTRIAXONE 1 GM/50 ML (PMX) 50 ML IVPB SCH (14:49)
--- NOTE | 2016-06-27 17:24 | RADRPT ---
PROCEDURE: MRI Brain without contrast. CLINICAL INDICATION: 55-year-old female with encephalopathy, hypoglycemia. TECHNIQUE: An MRI of the brain was performed without contrast utilizing the following sequences: Sagittal T1 weighted, sagittal FLAIR, axial T1, axial FLAIR, axial T2 weighted, axial diffusion weig hted (EPI technique [id number]), axial ADC mapping. The images were reviewed on a high-resolution PACS workstation. COMPARISON: CT head 06/25/2016, 05/09/2016, 05/11/2012, MRI brain 05/11/2012. FINDINGS: Diffusion weighted sequences demonstrate no evidence of acute lacunar or lobar infarction. There is stable appearance of remote prior infarct involving the left frontal operculum/lateral left frontal lobe. There is stable gliosis in the underlying white matter. This is unchanged in appearance com pared to 05/09/2016. There is no intracranial hemorrhage, extra-axial fluid collection, mass lesion , midline shift or hydrocephalous. There is mild prominence of the cerebral sulci, lateral and thir d ventricles. There is mild ex vacuo enlargement involving the frontal horn and body of the left la teral ventricle. There are moderate patchy and confluent periventricular and subcortical white monalisa er lesions, likely related to chronic microangiopathic changes.. Normal flow voids are visible the proximal intracranial arteries and dural sinuses, indicating patency. The midline structures are in tact. The paranasal sinuses, mastoid air cells and middle ear cavities are normally aerated. There are po stoperative changes from left parietal craniotomy with plate and screw device fixation. IMPRESSION: 1. No acute intracranial abnormality. No intracranial hemorrhage, mass lesion, infarction or hydro cephalous. 2. Stable appearance of remote encephalomalacia involving the left frontal operculum/lateral left f rontal lobe, likely related to remote prior left MCA distribution infarct. There is stable gliosis in the underlying white matter. 3. Baseline of mild peripheral and central cerebral volume loss. 4. Baseline of moderate patchy and confluent periventricular and subcortical white matter lesions, likely related to chronic microangiopathic changes. 5. Stable postoperative changes from prior left parietal craniotomy. RPTAT: HGAS .Renna Olson MD, MD Date Time Electronically viewed and signed by .Renan Olson MD, MD on 06/27/2016 17:24 .S/
--- NOTE | 2016-06-27 17:51 | PN ---
Date/Time of Note Date/Time of Note DATE: 06/27/16 TIME: 17:49 Assessment/Plan VTE Prophylaxis VTE Prophylaxis Intervention: other Lines/Catheters [facility] Saline Lock Urinary Cath still in place: No Assessment/Plan Chief Complaint/Hosp Course ASSESSMENT AND PLAN: 1. Acute encephalopathy. Improving, likely secondary to hypoglycemia with addition of amphetamine and alcohol use Neurology has been consulted. 2. Diabetes mellitus type 2 with hypoglycemia. Harness Worker has been consulted, continue on low-carb diet and insulin sliding scale 3. Amphetamine abuse. Education has been provided, drug use cessation has been recommended. Social service has been consulted 4. Seizure disorder. Neurology has been consulted, no evidence of seizure activity during the course of hospitalization 5. Essential hypertension. Well-controlled on medical management 6. Atrial fibrillation. Cardiology has been consulted continue anticoagulation 7. Pulmonary hypertension. Continue medical management 8. Congestive heart failure. Continue medical management We will continue monitor patient closely for recommendation management treatment as clinical course PT OT eval and treat Appreciate consult input and management Plan to discharge to [facility] facility versus acute rehab Transferred to [facility] Problems: Subjective 24 Hr Interval Summary Free Text/Dictation Patient denies any chest pain or shortness of breath Tolerating oral intake Ambulating with minimal assist Exam/Review of Systems Vital Signs Vitals Vital Signs Date Time Temp Pulse Resp B/P Pulse Ox O2 Delivery O2 Flow Rate FiO2 06/27/16 16:49 98.0 81 20 90/51 94 06/26/16 03:40 2.0 06/26/16 01:05 Nasal Cannula Intake and Output 06/26/16 06/26/16 06/27/16 15:00 23:00 07:00 Intake Total 600 ml 560 ml Balance 600 ml 560 ml Exam General: The patient is well-developed, Not in acute distress. HEENT: Atraumatic, normocephalic. The pupils are equal and round . Neck: Supple with full range of motion. Chest: Normal expansion of the thorax during inspiration Lungs: Clear to auscultation bilaterally Heart: Normal S1-S2, Regular rhythm and rate. Abdomen: Soft , nontender, nondistended , bowel sounds are present. Extremities: Normal to inspection, no edema no cyanosis Neurologic: Normal mental status,The patient is awake, alert and oriented . Results Result Diagram: 06/26/16 1503 06/26/16 1503 Results 24 hrs Laboratory Tests Test 06/26/16 21:01 06/27/16 08:09 06/27/16 12:30 06/27/16 17:38 Bedside Glucose 226 H 142 144 127 Medications Medications Current Medications Apixaban (Eliquis) 5 mg BID PO Last administered on 06/27/16 09:10; Admin Dose 5 MG; Start 06/25/16 at 21:00 Benazepril HCl (Lotensin) 20 mg DAILY PO Last administered on 06/27/16 09:14; Admin Dose 20 MG; Start 06/26/16 at 09:00 Divalproex Sodium (Depakote) 500 mg DAILY PO Last administered on 06/27/16 09: 10; Admin Dose 500 MG; Start 06/26/16 at 09:00 Levetiracetam (Keppra) 1,000 mg BID PO Last administered on 06/27/16 09:09; Admin Dose 1,000 MG; Start 06/25/16 at 21:00 Spironolactone (Aldactone) 25 mg DAILY PO Last administered on 06/27/16 09:14; Admin Dose 25 MG; Start 06/26/16 at 09:00 Ondansetron HCl (Zofran Inj) 4 mg Q6H PRN IV NAUSEA AND/OR VOMITING; Start 06/25 at 16:30 Nitroglycerin (Nitroglycerin (Sl Tab) 0.4 Mg) 1 tab Q5M PRN SL CHEST PAIN; Start 06/25/16 at 16:30 Acetaminophen (Tylenol Liquid) 650 mg Q6H PRN PO PAIN LEVEL 1-3 OR FEVER; Start 06/25/16 at 16:30 Acetaminophen (Tylenol Tab) 650 mg Q6H PRN PO PAIN LEVEL 1-3 OR FEVER; Start at 16:30 Lorazepam (Ativan) 1 mg Q2H PRN IV ANXIETY Last administered on 06/25/16 19:30 ; Admin Dose 1 MG; Start 06/25/16 at 16:30 Docusate Sodium (Colace) 100 mg Q12H PRN PO CONSTIPATION; Start 06/25/16 at 16: 30 Famotidine (Pepcid Iv) 20 mg Q12 IV Last administered on 06/27/16 09:10; Admin Dose 20 MG; Start 06/25/16 at 21:00 Miscellaneous Information 1 ea NOTE XX ; Start 06/25/16 at 18:00 Glucose (Glutose) 15 gm Q15M PRN PO DECREASED GLUCOSE; Start 06/25/16 at 18:00 Glucose (Glutose) 22.5 gm Q15M PRN PO DECREASED GLUCOSE; Start 06/25/16 at 18:00 Dextrose (D50w Syringe) 25 ml Q15M PRN IV DECREASED GLUCOSE Last administered on 06/25/16 23:46; Admin Dose 25 ML; Start 06/25/16 at 18:00 Dextrose (D50w Syringe) 50 ml Q15M PRN IV DECREASED GLUCOSE; Start 06/25/16 at 18:00 Glucagon (Glucagen) 1 mg Q15M PRN IM DECREASED GLUCOSE; Start 06/25/16 at 18:00 Glucose (Glutose) 15 gm Q15M PRN BUCCAL DECREASED GLUCOSE; Start 06/25/16 at 18: 00 Metoprolol Succinate (Toprol Xl) 25 mg BID PO Last administered on 06/27/16 09: 14; Admin Dose 25 MG; Start 06/26/16 at 09:00 Linagliptin (Tradjenta) 5 mg DAILY PO Last administered on 06/27/16 09:09; Admin Dose 5 MG; Start 06/26/16 at 09:00 Montelukast Sodium (Singulair) 10 mg HS PO Last administered on 06/26/16 21:04 ; Admin Dose 10 MG; Start 06/26/16 at 21:00 Salmeterol Xinafoate/ Fluticasone 1 inh 1 inh BID INH Last administered on 09:10; Admin Dose 1 INH; Start 06/26/16 at 10:30 Thiamine HCl 500 mg/Sodium Chloride 105 ml @ 210 mls/hr TID IV Last administered on 06/27/16 13:57; Admin Dose 210 MLS/HR; Start 06/26/16 at 13:00; Stop 06/29/16 at 12:59 Ceftriaxone Sodium 50 ml @ 100 mls/hr Q24H IVPB Last administered on 06/27/16 14:49; Admin Dose 100 MLS/HR; Start 06/26/16 at 13:30 Vancomycin HCl/ Sodium Chloride (Vancocin/NS) 150 ml @ 75 mls/hr Q12H IVPB Last administered on 06/27/16 17:43; Admin Dose 75 MLS/HR; Start 06/27/16 at 02: 30 Digoxin (Digoxin) 0.125 mg DAILY@13 PO Last administered on 06/27/16 14:00; Admin Dose 0.125 MG; Start 06/27/16 at 13:00 Miscellaneous Information (*Rx Drug Level Order Reminder*) VANCOMYCIN TROUGH 06/28 AT 0130 ONCE ONCE XX ; Start 06/28/16 at 01:30; Stop 06/28/16 at 01:31 CHICHI TALLEY MD Jun 27, 2016 17:51
[2016-06-27] MEDS: MONTELUKAST 10 MG TAB PO SCH (20:48)
[2016-06-28] MEDS: VANCOMYCIN 1 GM in NS 250 ML IVPB SCH ×2 (02:03→09:46)
[2016-06-28 02:45] VITALS: BP 90/64; PULSE 68; RESP 18
[2016-06-28 06:01] VITALS: BP 91/58; PULSE 79; RESP 18
[2016-06-28] MEDS: INSULIN ASPART [NOVOLOG] 3 ML PEN SC SCH ×2 (07:20→11:10)
[2016-06-28 08:35] VITALS: BP 116/90; RESP 18
--- NOTE | 2016-06-28 08:36 | PN ---
DATE: 06/28/2016 CARDIOLOGY FOLLOWUP SUBJECTIVE: Discussed with the staff. The patient is off of telemetry now. No report of chest luis n, no pressure. MEDICATIONS: Reviewed. PHYSICAL EXAMINATION: VITAL SIGNS: Temperature 97.9, heart rate of 78, blood pressure 91/58, respiratory rate of 18, satu rating 100%. HEENT: Normocephalic. Status post left facial trauma. CARDIOVASCULAR: Irregularly irregular. Systolic murmur. NECK: Supple. No JVD. PULMONARY: With no wheezes. GASTROINTESTINAL: Soft, nontender. EXTREMITIES: No significant lower extremity edema. NEUROLOGIC: Comfortably sleeping. LABORATORY: Still pending. ASSESSMENT AND PLAN: 1. Atrial fibrillation, chronic. On anticoagulation. 2. Severe cardiomyopathy, most likely nonischemic. 3. History of diabetes. 4. Hypertension. 5. History of drug abuse, including amphetamines. 6. Encephalopathy. RECOMMENDATIONS: Will continue with the current cardiac care. Follow up labs and adjust accordingl y. Dictated By: ABDI RASMUSSEN MD AV/NAGA Conf#: [id number] DID#: [id number] CC: CHICHI TALLEY MD;*EndCC*
[2016-06-28] MEDS ORDERED: FAMOTIDINE 20 MG TAB PO SCH (09:00)
[2016-06-28] MEDS: METOPROLOL (XL) 25 MG TAB PO SCH (09:00)
[2016-06-28] MEDS: BENAZEPRIL 20 MG TAB PO SCH (09:00)
[2016-06-28] MEDS: SALMETEROL/FLUTICASONE 250/50 INHA INH SCH (09:00)
[2016-06-28] MEDS: SPIRONOLACTONE 25 MG TAB PO SCH (09:20)
[2016-06-28] MEDS: APIXABAN 5 MG TABLET PO SCH (09:20)
[2016-06-28] MEDS: DIVALPROEX (EC) 500 MG TAB PO SCH (09:21)
[2016-06-28] MEDS: LINAGLIPTIN 5 MG TABLET PO SCH (09:21)
[2016-06-28] MEDS: LEVETIRACETAM 500 MG TAB PO SCH (09:21)
[2016-06-28 09:53] LABS: THYROID MICROSOMAL ANTIBODY 2 IU/mL (<9)
[2016-06-28 10:58] LABS: ADD SCAN DIFF NO
--- NOTE | 2016-06-28 11:02 | CONS ---
Date/Time of Note Date/Time of Note DATE: 06/28/16 TIME: 10:59 Consult Date/Type/Reason Admit Date/Time Jun 26, 2016 at 01:13 Initial Consult Date 06/26/16 Type of Consultation: Neurology Reason for Consultation encephalopathy Ordering Provider: CHICHI TALLEY MD Subjective mental status slightly improving no overnight issues Objective Vital Signs Date Time Temp Pulse Resp B/P Pulse Ox O2 Delivery O2 Flow Rate FiO2 06/28/16 08:35 97.0 70 18 116/90 92 06/28/16 06:01 Room Air 06/26/16 03:40 2.0 Intake and Output 06/27/16 06/27/16 06/28/16 15:00 23:00 07:00 Intake Total 500 ml 500 ml Balance 500 ml 500 ml Exam awake and alert oriented to location she says [place] when asked who she lives with she says none is able to follow simple commands well suspect more expressive aphasia no neglect CN: II-XII intact Motor intact throughout no drift Coordination no ataxia Reflexes symmetric throughout toes down Results/Medications Result Diagram: 06/26/16 1503 06/26/16 1503 Results 24 hrs Laboratory Tests Test 06/27/16 12:30 06/27/16 17:38 06/27/16 20:50 06/28/16 00:45 Bedside Glucose 144 127 158 Vancomycin Level Trough 8.5 L Test 06/28/16 07:46 Bedside Glucose 116 Medications Current Medications Apixaban (Eliquis) 5 mg BID PO Last administered on 06/28/16 09:20; Admin Dose 5 MG; Start 06/25/16 at 21:00 Benazepril HCl (Lotensin) 20 mg DAILY PO Last administered on 06/27/16 09:14; Admin Dose 20 MG; Start 06/26/16 at 09:00 Divalproex Sodium (Depakote) 500 mg DAILY PO Last administered on 06/28/16 09: 21; Admin Dose 500 MG; Start 06/26/16 at 09:00 Levetiracetam (Keppra) 1,000 mg BID PO Last administered on 06/28/16 09:21; Admin Dose 1,000 MG; Start 06/25/16 at 21:00 Spironolactone (Aldactone) 25 mg DAILY PO Last administered on 06/28/16 09:20; Admin Dose 25 MG; Start 06/26/16 at 09:00 Ondansetron HCl (Zofran Inj) 4 mg Q6H PRN IV NAUSEA AND/OR VOMITING; Start 06/25 at 16:30 Nitroglycerin (Nitroglycerin (Sl Tab) 0.4 Mg) 1 tab Q5M PRN SL CHEST PAIN; Start 06/25/16 at 16:30 Acetaminophen (Tylenol Liquid) 650 mg Q6H PRN PO PAIN LEVEL 1-3 OR FEVER; Start 06/25/16 at 16:30 Acetaminophen (Tylenol Tab) 650 mg Q6H PRN PO PAIN LEVEL 1-3 OR FEVER; Start at 16:30 Lorazepam (Ativan) 1 mg Q2H PRN IV ANXIETY Last administered on 06/25/16 19:30 ; Admin Dose 1 MG; Start 06/25/16 at 16:30 Docusate Sodium (Colace) 100 mg Q12H PRN PO CONSTIPATION; Start 06/25/16 at 16: 30 Miscellaneous Information 1 ea NOTE XX ; Start 06/25/16 at 18:00 Glucose (Glutose) 15 gm Q15M PRN PO DECREASED GLUCOSE; Start 06/25/16 at 18:00 Glucose (Glutose) 22.5 gm Q15M PRN PO DECREASED GLUCOSE; Start 06/25/16 at 18:00 Dextrose (D50w Syringe) 25 ml Q15M PRN IV DECREASED GLUCOSE Last administered on 06/25/16 23:46; Admin Dose 25 ML; Start 06/25/16 at 18:00 Dextrose (D50w Syringe) 50 ml Q15M PRN IV DECREASED GLUCOSE; Start 06/25/16 at 18:00 Glucagon (Glucagen) 1 mg Q15M PRN IM DECREASED GLUCOSE; Start 06/25/16 at 18:00 Glucose (Glutose) 15 gm Q15M PRN BUCCAL DECREASED GLUCOSE; Start 06/25/16 at 18: 00 Metoprolol Succinate (Toprol Xl) 25 mg BID PO Last administered on 06/27/16 09: 14; Admin Dose 25 MG; Start 06/26/16 at 09:00 Linagliptin (Tradjenta) 5 mg DAILY PO Last administered on 06/28/16 09:21; Admin Dose 5 MG; Start 06/26/16 at 09:00 Montelukast Sodium (Singulair) 10 mg HS PO Last administered on 06/27/16 20:48 ; Admin Dose 10 MG; Start 06/26/16 at 21:00 Salmeterol Xinafoate/ Fluticasone 1 inh 1 inh BID INH Last administered on 20:49; Admin Dose 1 INH; Start 06/26/16 at 10:30 Thiamine HCl 500 mg/Sodium Chloride 105 ml @ 210 mls/hr TID IV Last administered on 06/27/16 20:49; Admin Dose 210 MLS/HR; Start 06/26/16 at 13:00; Stop 06/29/16 at 12:59 Ceftriaxone Sodium (Rocephin) 50 ml @ 100 mls/hr Q24H IVPB Last administered on 06/27/16 14:49; Admin Dose 100 MLS/HR; Start 06/26/16 at 13:30 Digoxin (Digoxin) 0.125 mg DAILY@13 PO Last administered on 06/27/16 14:00; Admin Dose 0.125 MG; Start 06/27/16 at 13:00 Famotidine 20 mg 20 mg BID PO Last administered on 06/28/16 09:20; Admin Dose 20 MG; Start 06/28/16 at 09:00 Vancomycin HCl (Vancocin) 250 ml @ 125 mls/hr Q8H IVPB Last administered on 09:46; Admin Dose 125 MLS/HR; Start 06/28/16 at 02:00 Assessment/Plan Chief Complaint/Hosp Course 55 year old female with history of methamphetamine abuse, cardiomyopathy, seizure disorder, DM, COPD found altered by a friend with severe hypoglycemia, with persistent aphasia and encephalopathy after correction. EEG showed right temporal sharps MRI Brain no acute changes, previous Left MCA encephalomalacia with chronic white matter disease Dx: encephalopathy secondary to toxic/metabolic issues -continue AED currently on Keppra 1000 mg BID and Depakote 500 mg daily -VPA level undetectable likely has not been compliant -reinitiated on apixaban, continue for secondary stroke prevention from afib -IV Thiamine ordered for Wernicke's Encephalopathy dosing 500 mg IV TID x 3 days -abstinence from substance abuse Problems: PAPI LOMBARDO MD Jun 28, 2016 11:02
[2016-06-28 11:15] LABS: BASOPHILS % 0.3 % (0.0-2.0); EOSINOPHILS # 0.3 10^3/ul (0.0-0.5); EOSINOPHILS % 4.3 % (0.0-7.0); HEMATOCRIT 38.5 % (37.0-47.0); HEMOGLOBIN 12.9 g/dl (12.0-16.0); LYMPHOCYTES # 1.6 10^3/ul (0.8-2.9); LYMPHOCYTES % 28.2 % (15.0-51.0); MEAN CORPUSCULAR HEMOGLOBIN 28.7 pg (29.0-33.0); MEAN CORPUSCULAR HGB CONC 33.5 g/dl (32.0-37.0); MEAN CORPUSCULAR VOLUME 85.6 fl (82.0-101.0); MEAN PLATELET VOLUME 10.7 fl (7.4-10.4); MONOCYTE # 0.5 10^3/ul (0.3-0.9); NEUTROPHIL # 3.4 10^3/ul (1.6-7.5); NEUTROPHILS % 58.9 % (39.0-77.0); PLATELET COUNT 176 10^3/UL (140-415); RED CELL DISTRIBUTION WIDTH 15.4 % (11.5-14.5); WHITE BLOOD COUNT 5.8 10^3/ul (4.8-10.8)
[2016-06-28 11:18] LABS: ALBUMIN/GLOBULIN RATIO 1.21; BILIRUBIN,INDIRECT 0.7 mg/dl (0-1.1); BILIRUBIN,TOTAL 0.7 mg/dl (0.2-1.3); CALCIUM 9.4 mg/dl (8.4-10.2); CREATININE 0.65 mg/dl (0.44-1.00); MAGNESIUM 1.3 mg/dl (1.7-2.5); POTASSIUM 4.6 mmol/L (3.5-5.1); TOTAL PROTEIN 7.3 g/dl (6.1-8.1)
[2016-06-28] MEDS: THIAMINE 500 MG in SOD CHLORIDE 0.9% 100 ML IV SCH ×2 (11:47→14:31)
[2016-06-28] MEDS: DIGOXIN 0.125 MG TAB PO SCH (13:00)
[2016-06-28] MEDS: CEFTRIAXONE 1 GM/50 ML (PMX) 50 ML IVPB SCH (13:11)
--- NOTE | 2016-06-28 14:48 | PN ---
Date/Time of Note Date/Time of Note DATE: 06/28/16 TIME: 14:43 Assessment/Plan VTE Prophylaxis VTE Prophylaxis Intervention: other Lines/Catheters IV C[facility]ter Type (from [facility]): Saline Lock Urinary Cath still in place: No Assessment/Plan Chief Complaint/Hosp Course ASSESSMENT AND PLAN: 1. Acute encephalopathy. Improving, likely secondary to hypoglycemia with addition of amphetamine and alcohol use Neurology has been consulted. 2. Diabetes mellitus type 2 with hypoglycemia. Pencil Inspector has been consulted, continue on low-carb diet and insulin sliding scale 3. Amphetamine abuse. Education has been provided, drug use cessation has been recommended. Social service has been consulted 4. Seizure disorder. Neurology has been consulted, no evidence of seizure activity during the course of hospitalization 5. Essential hypertension. Well-controlled on medical management 6. Atrial fibrillation. Cardiology has been consulted continue anticoagulation 7. Pulmonary hypertension. Continue medical management 8. Congestive heart failure. Continue medical management We will continue monitor patient closely for recommendation management treatment as clinical course PT OT eval and treat Appreciate consult input and management Plan to discharge to senior care facility versus acute rehab Problems: Subjective 24 Hr Interval Summary Free Text/Dictation Patient is more awake and alert Able to ambulate without any discomfort Tolerating oral intake Minimal gait disturbance Exam/Review of Systems Vital Signs Vitals Vital Signs Date Time Temp Pulse Resp B/P Pulse Ox O2 Delivery O2 Flow Rate FiO2 06/28/16 08:35 97.0 70 18 116/90 92 06/28/16 06:01 Room Air 06/26/16 03:40 2.0 Intake and Output 06/27/16 06/27/16 06/28/16 15:00 23:00 07:00 Intake Total 500 ml 500 ml Balance 500 ml 500 ml Exam General: The patient is well-developed, Not in acute distress. HEENT: Atraumatic, normocephalic. The pupils are equal and round . Neck: Supple with full range of motion. Chest: Normal expansion of the thorax during inspiration Lungs: Clear to auscultation bilaterally Heart: Normal S1-S2, Regular rhythm and rate. Abdomen: Soft , nontender, nondistended , bowel sounds are present. Extremities: Normal to inspection, no edema no cyanosis Neurologic: Normal mental status,The patient is awake, alert and oriented . Results Result Diagram: 06/28/16 1027 06/28/16 1027 Results 24 hrs Laboratory Tests Test 06/27/16 17:38 06/27/16 20:50 06/28/16 00:45 06/28/16 07:46 Bedside Glucose 127 158 116 Vancomycin Level Trough 8.5 L Test 06/28/16 10:27 06/28/16 11:58 White Blood Count 5.8 Red Blood Count 4.50 Hemoglobin 12.9 Hematocrit 38.5 Mean Corpuscular Volume 85.6 Mean Corpuscular Hemoglobin 28.7 L Mean Corpuscular Hemoglobin Concent 33.5 Red Cell Distribution Width 15.4 H Platelet Count 176 Mean Platelet Volume 10.7 H Neutrophils % 58.9 Lymphocytes % 28.2 Monocytes % 8.0 Eosinophils % 4.3 Basophils % 0.3 Nucleated Red Blood Cells % 0.0 Neutrophils # 3.4 Lymphocytes # 1.6 Monocytes # 0.5 Eosinophils # 0.3 Basophils # 0.0 Nucleated Red Blood Cells # 0.0 Sodium Level 135 Potassium Level 4.6 Chloride Level 103 Carbon Dioxide Level 24 Anion Gap 13 Blood Urea Nitrogen 11 Creatinine 0.65 Glucose Level 169 Calcium Level 9.4 Magnesium Level 1.3 L Total Bilirubin 0.7 Direct Bilirubin 0.00 Indirect Bilirubin 0.7 Aspartate Amino Transf (AST/SGOT) 35 Alanine Aminotransferase (ALT/SGPT) 25 Alkaline Phosphatase 80 B-Type Natriuretic Peptide 3540 H Total Protein 7.3 Albumin 4.0 Globulin 3.30 H Albumin/Globulin Ratio 1.21 Digoxin Level 0.7 L Bedside Glucose 131 Medications Medications Current Medications Apixaban (Eliquis) 5 mg BID PO Last administered on 06/28/16 09:20; Admin Dose 5 MG; Start 06/25/16 at 21:00 Benazepril HCl (Lotensin) 20 mg DAILY PO Last administered on 06/27/16 09:14; Admin Dose 20 MG; Start 06/26/16 at 09:00 Divalproex Sodium (Depakote) 500 mg DAILY PO Last administered on 06/28/16 09: 21; Admin Dose 500 MG; Start 06/26/16 at 09:00 Levetiracetam (Keppra) 1,000 mg BID PO Last administered on 06/28/16 09:21; Admin Dose 1,000 MG; Start 06/25/16 at 21:00 Spironolactone (Aldactone) 25 mg DAILY PO Last administered on 06/28/16 09:20; Admin Dose 25 MG; Start 06/26/16 at 09:00 Ondansetron HCl (Zofran Inj) 4 mg Q6H PRN IV NAUSEA AND/OR VOMITING; Start 06/25 at 16:30 Nitroglycerin (Nitroglycerin (Sl Tab) 0.4 Mg) 1 tab Q5M PRN SL CHEST PAIN; Start 06/25/16 at 16:30 Acetaminophen (Tylenol Liquid) 650 mg Q6H PRN PO PAIN LEVEL 1-3 OR FEVER; Start 06/25/16 at 16:30 Acetaminophen (Tylenol Tab) 650 mg Q6H PRN PO PAIN LEVEL 1-3 OR FEVER; Start at 16:30 Lorazepam (Ativan) 1 mg Q2H PRN IV ANXIETY Last administered on 06/25/16 19:30 ; Admin Dose 1 MG; Start 06/25/16 at 16:30 Docusate Sodium (Colace) 100 mg Q12H PRN PO CONSTIPATION; Start 06/25/16 at 16: 30 Miscellaneous Information 1 ea NOTE XX ; Start 06/25/16 at 18:00 Glucose (Glutose) 15 gm Q15M PRN PO DECREASED GLUCOSE; Start 06/25/16 at 18:00 Glucose (Glutose) 22.5 gm Q15M PRN PO DECREASED GLUCOSE; Start 06/25/16 at 18:00 Dextrose (D50w Syringe) 25 ml Q15M PRN IV DECREASED GLUCOSE Last administered on 06/25/16 23:46; Admin Dose 25 ML; Start 06/25/16 at 18:00 Dextrose (D50w Syringe) 50 ml Q15M PRN IV DECREASED GLUCOSE; Start 06/25/16 at 18:00 Glucagon (Glucagen) 1 mg Q15M PRN IM DECREASED GLUCOSE; Start 06/25/16 at 18:00 Glucose (Glutose) 15 gm Q15M PRN BUCCAL DECREASED GLUCOSE; Start 06/25/16 at 18: 00 Metoprolol Succinate (Toprol Xl) 25 mg BID PO Last administered on 06/27/16 09: 14; Admin Dose 25 MG; Start 06/26/16 at 09:00 Linagliptin (Tradjenta) 5 mg DAILY PO Last administered on 06/28/16 09:21; Admin Dose 5 MG; Start 06/26/16 at 09:00 Montelukast Sodium (Singulair) 10 mg HS PO Last administered on 06/27/16 20:48 ; Admin Dose 10 MG; Start 06/26/16 at 21:00 Salmeterol Xinafoate/ Fluticasone 1 inh 1 inh BID INH Last administered on 20:49; Admin Dose 1 INH; Start 06/26/16 at 10:30 Thiamine HCl 500 mg/Sodium Chloride 105 ml @ 210 mls/hr TID IV Last administered on 06/28/16 14:31; Admin Dose 210 MLS/HR; Start 06/26/16 at 13:00; Stop 06/29/16 at 12:59 Ceftriaxone Sodium (Rocephin) 50 ml @ 100 mls/hr Q24H IVPB Last administered on 06/28/16 13:11; Admin Dose 100 MLS/HR; Start 06/26/16 at 13:30 Digoxin (Digoxin) 0.125 mg DAILY@13 PO Last administered on 06/27/16 14:00; Admin Dose 0.125 MG; Start 06/27/16 at 13:00 Famotidine 20 mg 20 mg BID PO Last administered on 06/28/16 09:20; Admin Dose 20 MG; Start 06/28/16 at 09:00 Vancomycin HCl (Vancocin) 250 ml @ 125 mls/hr Q8H IVPB Last administered on 09:46; Admin Dose 125 MLS/HR; Start 06/28/16 at 02:00 Miscellaneous Information (*Rx Drug Level Order Reminder*) 1 ONCE ONCE XX ; Start 06/29/16 at 01:00; Stop 06/29/16 at 01:01 CHICHI TALLEY MD Jun 28, 2016 14:48
[2016-06-28] MEDS ORDERED: CLINDAMYCIN 150 MG CAP PO SCH (17:30)
--- NOTE | 2016-06-28 18:14 | DS ---
DATE OF ADMISSION: 06/26/2016 DATE OF DISCHARGE: 06/28/2016 The patient left the hospital, eloped on 06/28/2016. CONSULTANTS: 1. Computer Bookkeeper. 2. Neurologist. DIAGNOSES: 1. Acute encephalopathy, likely secondary to hypoglycemia with history of amphetamine and history o f alcohol use. Patient was awake, alert, and oriented today. 2. Diabetes mellitus type 2 with history of hypoglycemia, endocrinology was consulted. 3. History of amphetamine use. Education was provided. Drug use cessation was recommended. [employer] service was consulted. 4. Seizure disorder. Neurology was consulted. No evidence of seizure activity during this course of hospitalization. 5. Essential hypertension, well controlled on medical management during the course of hospitalizati on. 6. Atrial fibrillation. Cardiology was consulted. Patient was rate controlled, was continued on a nticoagulation. 7. Pulmonary hypertension on medical management. 8. Congestive heart failure on clinical management. The patient was seen and evaluated by physical therapy during the course of hospitalization and was planned to be discharged to shelter facility versus acute rehabilitation. PHYSICAL EXAMINATION: VITAL SIGNS: Today temperature 97.0, pulse 70, respirations 18, blood pressure 116/90, oxygen 92 t o 100% in room air. GENERAL: The patient was sitting on the edge of the bed comfortably without any acute distress. S he was awake, alert. She was able to answer my questions and follow commands without any difficulty . Patient was able to ambulate to the bathroom without any difficulty or any sign of encephalopathy . HEENT: Conjunctivae and lids are normal. Pupils are normal. Extraocular normal. Hearing grossly normal. There was a bruise on the left side of her face. NECK: Supple. Trachea is midline. CARDIOVASCULAR: Normal S1, S2. Regular rhythm and rate. NECK: Supple. Trachea is midline. No lymphadenopathy. RESPIRATORY: Effort is normal. LUNGS: Clear to auscultate bilaterally. CARDIOVASCULAR: Normal S1, S2. Atrial fibrillation, rate controlled. ABDOMEN: Soft, nontender, not distended. EXTREMITIES: Upper and lower extremities within normal limits. No sign of edema. Mood and affect was normal. She was euphoric. Normal judgment and insight. The patient was awake , alert, oriented to self, place and time. HOSPITAL COURSE: This was a 55-year-old female with past medical history of atrial fibrillation, ca rdiomyopathy, systolic ejection fraction 20%, history of V-tach, dilation of hepatic vein, COPD, pu lmonary hypertension, diabetes mellitus type 2, history of substance use and amphetamine use, histor y of CVA, who was brought into the emergency room via EMS and she was found by her neighbor on 06/25. At her residence, the patient's glucose was found to be 32. She was treated with D50 and gl ucose increased to 58. She continued to have encephalopathy. The patient was brought into the [facility] via EMS where her glucose was found to be 105. LFTs are within normal limits. EKG showed atrial fibrillation ____ nonspecific T-wave abnormality, right axi s. Neurology endocrinology and cardiology were consulted. Patient had EEG done which showed abnorm al EEG because of presence of left temporal sharps which could be epileptogenic. CT of the brain: No evidence of acute intracranial pathology, no significant changes, left frontal encephalomalacia l ikely chronic, left middle cerebral artery territory infarct, mild generalized volume loss, mild chr onic small vessel ischemic changes, status post left parietal craniotomy. MRI of the brain was obta ined which demonstrated no acute intracranial abnormality, no intracranial hemorrhage, mass lesion, infarction or hydrocephalus. Stable appearance of remote encephalomalacia involving the left fronta l ____ lateral left frontal lobe, likely related to remote prior left MCA distribution infarct. Lesa garner was admitted to telemetry floor and was seen and evaluated by neurology, cardiology and endocri nology. She eventually became more awake, alert, oriented. She was able to tolerate oral intake an d would ambulate without any assistance. Initially on 06/27/2016 the patient was transferred to med /surg where she was able to ambulate without any difficulties, was awake, alert, oriented, had good conversation with the staff including me. Upon my evaluation, the patient was very pleasant and was able to ambulate to the bathroom without any difficulty. On 06/28/2016 at 4:30 p.m. I received a c all from the nurse that the patient had eloped from her room and had probably left the hospital. At the time that I evaluated the patient, she was awake, alert, and oriented, although she decided to leave the hospital by taking the risk and eloping from our facility. Dictated By: CHICHI TALLEY MD PN/NTS Conf#: [id number] DID#: [id number]
== END 2016-06-28 16:00 | disposition left against medical advice (07) | DRG 638 ==
LOC: E/R 12:22 → MS4 16:34 → UNDOADMIN 16:34 → MS4 06-26 01:13 → MS1 06-28 02:09
PROVIDERS: ADMIT Family Medicine; ATTEND Family Medicine
DX: E11.649 Type 2 diabetes mellitus with hypoglycemia without coma (principal); R47.01 Aphasia; G92 Toxic encephalopathy; I27.2 Other secondary pulmonary hypertension; I11.0 Hypertensive heart disease with heart failure; I50.9 Heart failure, unspecified; I48.2 Chronic atrial fibrillation; J44.9 Chronic obstructive pulmonary disease, unspecified; F15.10 Other stimulant abuse, uncomplicated; G40.909 Epilepsy, unspecified, not intractable, without status epilepticus; Y92.9 Unspecified place or not applicable; Z79.84 Long term (current) use of oral hypoglycemic drugs; Z86.73 Personal history of transient ischemic attack (TIA), and cerebral infarction without residual deficits
CPT/HCPCS: 36415; 70450; 70551; 71010; 72125; 80053; 80162; 80164; 80202; 80306; 80307; 81001; 81003; 82533; 82550; 82553; 82607; 82746; 82962; 83605; 83735; 83880; 84443; 84484; 85025; 85610; 85730; 86376; 86592; 86800; 87040; 87081; 87086; 92610; 93005; 95819; 96361; 96374; 96375; 96376; J0696; J1815; J2060; J3370; J3411; J3480; J7050; P9612

== ENCOUNTER 2016-07-02 13:09 | Emergency (ER) | payer OTHER ==
[~2016-07-02] VITALS: Ht 167.6 cm; Wt 83.0 kg
[2016-07-02 13:15] VITALS: Ht 167.6 cm; Wt 83.0 kg
[2016-07-02] MEDS ORDERED: SOD CHLORIDE 0.9% 1,000 ML IV STA (13:36)
[2016-07-02] MEDS ORDERED: CIPROFLOXACIN 400MG/D5W 200 ML IVPB ONE (14:00)
[2016-07-02 14:01] LABS: ADD SCAN DIFF NO
[2016-07-02 14:04] LABS: BASOPHILS % 0.5 % (0.0-2.0); EOSINOPHILS # 0.2 10^3/ul (0.0-0.5); EOSINOPHILS % 4.2 % (0.0-7.0); HEMATOCRIT 39.2 % (37.0-47.0); LYMPHOCYTES # 1.5 10^3/ul (0.8-2.9); LYMPHOCYTES % 27.8 % (15.0-51.0); MEAN CORPUSCULAR HEMOGLOBIN 28.3 pg (29.0-33.0); MEAN CORPUSCULAR HGB CONC 33.2 g/dl (32.0-37.0); MEAN CORPUSCULAR VOLUME 85.4 fl (82.0-101.0); MEAN PLATELET VOLUME 10.8 fl (7.4-10.4); MONOCYTE # 0.4 10^3/ul (0.3-0.9); MONOCYTES % 7.9 % (0.0-11.0); NEUTROPHIL # 3.3 10^3/ul (1.6-7.5); NEUTROPHILS % 59.2 % (39.0-77.0); PLATELET COUNT 199 10^3/UL (140-415); RED BLOOD COUNT 4.59 10^6/ul (4.20-5.40); RED CELL DISTRIBUTION WIDTH 15.5 % (11.5-14.5); WHITE BLOOD COUNT 5.5 10^3/ul (4.8-10.8)
[2016-07-02 14:13] LABS: ALBUMIN 4.1 g/dl (3.3-4.9)
[2016-07-02 14:15] LABS: BILIRUBIN,INDIRECT 0.8 mg/dl (0-1.1); BILIRUBIN,TOTAL 0.8 mg/dl (0.2-1.3); CREATININE 1.18 mg/dl (0.44-1.00)
[2016-07-02 14:16] LABS: ALBUMIN/GLOBULIN RATIO 1.2; CALCIUM 9.4 mg/dl (8.4-10.2); TOTAL PROTEIN 7.5 g/dl (6.1-8.1)
--- NOTE | 2016-07-02 14:31 | RADRPT ---
PROCEDURE: XR Chest. CLINICAL INDICATION: Shortness of breath. TECHNIQUE: Single frontal view. COMPARISON: 06/25/2016. FINDINGS: The lungs are clear. The heart is enlarged. There is calcification in the aorta consistent with atherosclerosis. There is no pleural effusion. There is no pneumothorax. IMPRESSION: 1. Cardiomegaly and atherosclerosis. 2. Clear lungs. RPTAT: QQ .Thomas Murphy MD, MD Date Time Electronically viewed and signed by .Thomas Murphy MD, on 07/02/2016 14:30 .R/
[2016-07-02 15:56] LABS: ADD UMIC NO; URINE BILIRUBIN (Dip) NEGATIVE (NEGATIVE); URINE BLOOD (Dip) NEGATIVE (NEGATIVE); URINE COLOR LT. YELLOW (YELLOW); URINE GLUCOSE (Dip) NEGATIVE (NEGATIVE); URINE KETONES (Dip) NEGATIVE (NEGATIVE); URINE LEUKOCYTE ESTERASE (Dip) NEGATIVE (NEGATIVE); URINE NITRITE (Dip) NEGATIVE (NEGATIVE); URINE TOTAL PROTEIN (Dip) NEGATIVE (NEGATIVE); URINE UROBILINOGEN (Dip) 0.2 E.U./dL (0.1-1.0)
[2016-07-02] MEDS ORDERED: CIPR500T4 PO (16:03)
--- NOTE | 2016-07-02 16:03 | ERD ---
ER Documentation Chief Complaint Date/Time DATE: 07/02/16 TIME: 16:00 Chief Complaint HERE FOR MEDICATION REFILL, BLOOD PRESSURE 80/53 IN TRIAGE HPI This 35-year-old female presents to the emergency room for evaluation of a medication refill. She was told by her primary care physician that she could have an infection in her blood. The patient was admitted weekend left the hospital before getting her antibiotics. She does not know what type of infection she has. She states that she has not had any fevers, chills, nausea or vomiting. In triage this patient was found to have a low blood pressure was brought to the main ER for further evaluation. ROS All systems reviewed and are negative except as per history of present illness. Medications Home Meds Active Scripts Linagliptin (TRADJENTA) 5 Mg Tablet, 5 MG PO DAILY for 30 Days, TAB Prov:LENIN AGGARWAL MD 05/24/16 Spironolactone* (Aldactone*) 25 Mg Tablet, 25 MG PO DAILY for 30 Days, TAB Prov:LENIN AGGARWAL MD 05/24/16 Reported Medications Levetiracetam* (Keppra*) 500 Mg Tablet, 1000 MG PO BID, TAB 05/21/16 Apixaban* (Eliquis*) 5 Mg Tablet, 5 MG PO BID, TAB 05/21/16 Divalproex Sodium* (Depakote*) 500 Mg Tablet.dr, 500 MG PO DAILY, #30 TAB 05/21/16 Carvedilol* (Carvedilol*) 12.5 Mg Tablet, 12.5 MG PO BID, #60 TAB 05/21/16 Metformin Hcl* (Metformin Hcl*) 1,000 Mg Tablet, 1000 MG PO WITH BREAKFAST DINNE , #60 TAB 05/21/16 Furosemide* (Furosemide*) 40 Mg Tablet, 40 MG PO DAILY, TAB 05/21/16 Benazepril Hcl* (Benazepril Hcl*) 20 Mg Tablet, 20 MG PO DAILY, #30 TAB 05/21/16 Allergies Allergies: Coded Allergies: No Known Allergy (Unverified , 07/02/16) PMhx/Soc History of Surgery: Yes (Brain tumor removal 2016) Anesthesia Reaction: No Hx Neurological Disorder: Yes (CVA) Hx Respiratory Disorders: Yes (COPD) Hx Cardiac Disorders: Yes (HTN,CHF) Hx Psychiatric Problems: No (Patient denies any history of anxiety, depression or MH) Hx Miscellaneous Medical Probl: Yes (Methamphetamine abuse,Hypothyroidism) Hx Alcohol Use: No Hx Substance Use: Yes (Methamphetamines) Hx Tobacco Use: No Smoking Status: Never smoker Physical Exam Vitals Vital Signs Date Time Temp Pulse Resp B/P Pulse Ox O2 Delivery O2 Flow Rate FiO2 07/02/16 13:15 97.7 55 18 80/53 99 Physical Exam Const: No acute distress Head: Atraumatic Eyes: Normal Conjunctiva ENT: Normal External Ears, Nose and Mouth. Neck: Full range of motion..~ No meningismus. Resp: Clear to auscultation bilaterally Cardio: Regular rate and rhythm, no murmurs Abd: Soft, non tender, non distended. Normal bowel sounds Skin: No petechiae or rashes Back: No midline or flank tenderness Ext: No cyanosis, or edema Neur: Awake and alert Psych: Normal Mood and Affect Result Diagram: 07/02/16 1345 07/02/16 1345 Results 24 hrs Laboratory Tests Test 07/02/16 13:45 07/02/16 15:50 White Blood Count 5.510^3/ul Red Blood Count 4.5910^6/ul Hemoglobin 13.0g/dl Hematocrit 39.2% Mean Corpuscular Volume 85.4fl Mean Corpuscular Hemoglobin 28.3pg Mean Corpuscular Hemoglobin Concent 33.2g/dl Red Cell Distribution Width 15.5% Platelet Count 06893^3/UL Mean Platelet Volume 10.8fl Neutrophils % 59.2% Lymphocytes % 27.8% Monocytes % 7.9% Eosinophils % 4.2% Basophils % 0.5% Nucleated Red Blood Cells % 0.0/100WBC Neutrophils # 3.310^3/ul Lymphocytes # 1.510^3/ul Monocytes # 0.410^3/ul Eosinophils # 0.210^3/ul Basophils # 0.010^3/ul Nucleated Red Blood Cells # 0.010^3/ul Sodium Level 141mmol/L Potassium Level 4.0mmol/L Chloride Level 100mmol/L Carbon Dioxide Level 26mmol/L Anion Gap 19 Blood Urea Nitrogen 33mg/dl Creatinine 1.18mg/dl Glucose Level 98mg/dl Calcium Level 9.4mg/dl Total Bilirubin 0.8mg/dl Direct Bilirubin 0.00mg/dl Indirect Bilirubin 0.8mg/dl Aspartate Amino Transf (AST/SGOT) 30IU/L Alanine Aminotransferase (ALT/SGPT) 26IU/L Alkaline Phosphatase 72IU/L Total Protein 7.5g/dl Albumin 4.1g/dl Globulin 3.40g/dl Albumin/Globulin Ratio 1.20 Lipase 75U/L Urine Color LT. YELLOW Urine Clarity CLEAR Urine pH 6.0 Urine Specific [place] 1.015 Urine Ketones NEGATIVE Urine Nitrite NEGATIVE Urine Bilirubin NEGATIVE Urine Urobilinogen 0.2 E.U./dL Urine Leukocyte Esterase NEGATIVE Urine Hemoglobin NEGATIVE Urine Glucose NEGATIVE% Urine Total Protein NEGATIVE Current Medications Medications (Trade) Dose Ordered Sig/Marck Route PRN Reason Start Time Stop Time Status Last Admin Dose Admin Sodium Chloride 1,000 ml @ 1,000 mls/hr Q1H STAT IV 07/02/16 13:36 07/02/16 14:35 DC 07/02/16 14:05 Ciprofloxacin/ Dextrose (Cipro Ivpb) 200 ml @ 200 mls/hr ONCE ONCE IVPB 07/02/16 14:00 07/02/16 14:59 DC 07/02/16 14:52 Procedures/MDM This [age]-year-old female presents to the ER for evaluation of possible bladder infection. She was hypotensive and was transferred to the main emergency room for further evaluation. The patient was not hypotensive and in fact had a blood pressure of 115 2/94 on my examination. I did look up her previous medical record and looks like she had gram-positive cocci in her blood which was sensitive to ciprofloxacin. This patient is afebrile, no leukocytosis, lab work is within normal limits, she is hemodynamically stable. She was given vancomycin and ciprofloxacin here in the emergency room. She will be discharged home at this time with a prescription for ciprofloxacin instructions to follow-up with her primary care physician. She is okay the plan of care and advised to return immediately to the ER if she develops any fevers or chills and she verbalized understanding. Departure Diagnosis: Primary Impression: Positive blood culture Condition: Stable Patient Instructions: Low Blood Pressure (Hypotension) Referrals: [facility] (PCP) Additional Instructions: FOLLOW UP WITH YOUR PRIMARY CARE PHYSICIAN TOMORROW.Return to this facility if you are not improving as expected. RANDY NUNEZ DO Jul 02, 2016 16:03
[2016-07-02 16:14] VITALS: BP 112/62; PULSE 70; RESP 20
== END 2016-07-02 16:16 | disposition home or self-care (01) ==
LOC: E/R 13:09
DX: R78.89 Finding of other specified substances, not normally found in blood (principal); I50.9 Heart failure, unspecified; J44.9 Chronic obstructive pulmonary disease, unspecified; I10 Essential (primary) hypertension; E03.9 Hypothyroidism, unspecified; E11.9 Type 2 diabetes mellitus without complications; Z79.84 Long term (current) use of oral hypoglycemic drugs
CPT/HCPCS: 36415; 71010; 80053; 81003; 83690; 85025; 96374; J0744; J7030; Z7502

== ENCOUNTER 2016-09-25 23:47 | Emergency (ER) | payer OTHER ==
[~2016-09-25] VITALS: Ht 167.6 cm; Wt 99.5 kg
[~2016-09-25 23:47] MED LIST changes: +CIPR500T4 PO
[2016-09-25 23:53] VITALS: Ht 167.6 cm; Wt 99.5 kg
[2016-09-26] MEDS ORDERED: FURO-109 PO (01:26)
[2016-09-26] MEDS ORDERED: FUROSEMIDE 20 MG TAB PO ONE (01:30)
--- NOTE | 2016-09-26 02:02 | ERD ---
ER Documentation Chief Complaint Date/Time DATE: 09/26/16 TIME: 02:01 Chief Complaint bilateral leg swelling and sob has chf was taken off lasix for 2 mos HPI 55-year-old female is here for a Lasix prescription. She has bilateral lower extremity swelling secondary to CHF. No fevers no chills. No nausea no vomiting. No chest pain. No other current issues. Patient refuses all blood work. ROS All systems reviewed and are negative except as per history of present illness. Medications Home Meds Active Scripts Furosemide* (Lasix*) 40 Mg Tablet, 40 MG PO DAILY, #20 TAB Prov:NATHAN BOYER 09/26/16 Spironolactone* (Aldactone*) 25 Mg Tablet, 25 MG PO DAILY for 30 Days, TAB Prov:LENIN AGGARWAL MD 05/24/16 Reported Medications Levetiracetam* (Keppra*) 500 Mg Tablet, 1000 MG PO BID, TAB 05/21/16 Carvedilol* (Carvedilol*) 12.5 Mg Tablet, 12.5 MG PO BID, #60 TAB 05/21/16 Metformin Hcl* (Metformin Hcl*) 1,000 Mg Tablet, 1000 MG PO WITH BREAKFAST DINNE , #60 TAB 05/21/16 Furosemide* (Furosemide*) 40 Mg Tablet, 40 MG PO DAILY, TAB 05/21/16 Benazepril Hcl* (Benazepril Hcl*) 20 Mg Tablet, 20 MG PO DAILY, #30 TAB 05/21/16 Discontinued Reported Medications Apixaban* (Eliquis*) 5 Mg Tablet, 5 MG PO BID, TAB 05/21/16 Divalproex Sodium* (Depakote*) 500 Mg Tablet.dr, 500 MG PO DAILY, #30 TAB 05/21/16 Discontinued Scripts Ciprofloxacin Hcl* (Ciprofloxacin Hcl*) 500 Mg Tablet, 500 MG PO BID for 14 Days , TAB Prov:RANDY NUNEZ DO 07/02/16 Linagliptin (TRADJENTA) 5 Mg Tablet, 5 MG PO DAILY for 30 Days, TAB Prov:LENIN AGGARWAL MD 05/24/16 Allergies Allergies: Coded Allergies: No Known Allergy (Unverified , 07/02/16) PMhx/Soc History of Surgery: Yes (Brain tumor removal 2015) Anesthesia Reaction: No Hx Neurological Disorder: Yes (CVA) Hx Respiratory Disorders: Yes (COPD) Hx Cardiac Disorders: Yes (HTN,CHF) Hx Psychiatric Problems: No (Patient denies any history of anxiety, depression or MH) Hx Miscellaneous Medical Probl: Yes (Methamphetamine abuse,Hypothyroidism) Hx Alcohol Use: No Hx Substance Use: Yes (Methamphetamines) Hx Tobacco Use: No Smoking Status: Never smoker Physical Exam Vitals Vital Signs Date Time Temp Pulse Resp B/P Pulse Ox O2 Delivery O2 Flow Rate FiO2 09/25/16 23:53 98.8 75 20 114/97 100 Physical Exam Const: [] Head: Atraumatic Eyes: Normal Conjunctiva ENT: Normal External Ears, Nose and Mouth. Neck: Full range of motion..~ No meningismus. Resp: Clear to auscultation bilaterally Cardio: Regular rate and rhythm, no murmurs Abd: Soft, non tender, non distended. Normal bowel sounds Skin: No petechiae or rashes Back: No midline or flank tenderness Ext: No cyanosis, or edema Neur: Awake and alert Psych: Normal Mood and Affect Results 24 hrs Current Medications Medications (Trade) Dose Ordered Sig/Marck Route PRN Reason Start Time Stop Time Status Last Admin Dose Admin Furosemide (Lasix) 40 mg ONCE ONCE PO 09/26/16 01:30 09/26/16 01:31 DC 09/26/16 01:39 Procedures/MDM EKG: Rate/Rhythm: [Normal Sinus Rhythm] QRS, ST, T-waves: [No changes consistent w/ acute ischemia] Impression: [No evidence of ischemia or arrhythmia] Chest X-ray 1V Interpreted by me: Soft Tissue: No acute abnormalities Bones: No acute abnormalities Mediastinum/Cardiac Silhouette/Lungs: Increased interstitial fluid markings. Minimal cardiomegaly Patient's thoracic symptoms have stabilized while in the department and are stable for outpatient follow up. Exam and work up not consistent w/ ischemia, arrhythmia, PE or dissection. Departure Diagnosis: Primary Impression: Swelling Condition: Stable Patient Instructions: Peripheral Edema, Bilateral NATHAN BOYER Sep 26, 2016 02:02
[2016-09-26 02:05] VITALS: BP 118/96; PULSE 128; RESP 17; TEMP 98.6
--- NOTE | 2016-09-26 02:05 | RADRPT ---
PROCEDURE: Chest. CLINICAL INDICATION: Chest pain. TECHNIQUE: Single frontal view of the chest was obtained. COMPARISON: 07/02/2016. FINDINGS: The cardiac silhouette is enlarged. The aortic arch is calcified. There is no focal consolidation, vascular congestion or pleural effusion. There is no pneumothorax. IMPRESSION: Moderate cardiomegaly. Aortic atherosclerosis. .Lenny Dumas MD, MD Date Time Electronically viewed and signed by .Lenny Dumas MD, on 09/26/2016 02:05 .T/
== END 2016-09-26 02:09 | disposition home or self-care (01) ==
LOC: E/R 23:47
DX: M79.89 Other specified soft tissue disorders (principal); I10 Essential (primary) hypertension; I50.9 Heart failure, unspecified; J44.9 Chronic obstructive pulmonary disease, unspecified; E03.9 Hypothyroidism, unspecified; Z79.84 Long term (current) use of oral hypoglycemic drugs; Z85.841 Personal history of malignant neoplasm of brain
CPT/HCPCS: 71010; 93005; Z7502; Z7610

== ENCOUNTER 2016-11-20 03:47 | Inpatient (IN) | payer OTHER ==
[~2016-11-20] VITALS: Ht 165.1 cm; Wt 100.7 kg
[2016-11-20] VITALS (7 sets, daily range): BP systolic 98–103; BP diastolic 57–80; PULSE 88–107; RESP 17–19; TEMP 97.3; Ht 165.1 cm; Wt 100.7 kg
[~2016-11-20 03:47] MED LIST changes: -APIX5TAB PO; -CIPR500T4 PO; -DIVA500T7 PO; +FURO-109 PO; -LINA5TAB PO
[2016-11-20] MEDS ORDERED: SOD CHLORIDE 0.9% 1,000 ML IV STA (04:13)
[2016-11-20] MEDS ORDERED: DILTIAZEM 25 MG INJ ONE (04:27)
[2016-11-20] MEDS ORDERED: DILTIAZEM 25 MG INJ IV ONE (04:30)
[2016-11-20] MEDS ORDERED: DILTIAZEM 90 MG TAB PO ONE (04:30)
--- NOTE | 2016-11-20 05:49 | ERA ---
ER Documentation Chief Complaint Date/Time DATE: 11/20/16 TIME: 05:47 Chief Complaint c/o worsening SB. (+) tachypnea. Hx CHF. (+) BLE. HPI 55 female complaining worsening shortness of breath and palpitations. Patient has history of CHF. No nausea no vomiting no chills. No other current complaints. Triage heart rate was noted to be 164 ROS All systems reviewed and are negative except as per history of present illness. Medications Home Meds Active Scripts Furosemide* (Lasix*) 40 Mg Tablet, 40 MG PO DAILY, #20 TAB Prov:NATHAN BOYER 09/26/16 Spironolactone* (Aldactone*) 25 Mg Tablet, 25 MG PO DAILY for 30 Days, TAB Prov:LENIN AGGARWAL MD 05/24/16 Reported Medications Levetiracetam* (Keppra*) 500 Mg Tablet, 1000 MG PO BID, TAB 05/21/16 Carvedilol* (Carvedilol*) 12.5 Mg Tablet, 12.5 MG PO BID, #60 TAB 05/21/16 Metformin Hcl* (Metformin Hcl*) 1,000 Mg Tablet, 1000 MG PO WITH BREAKFAST DINNE , #60 TAB 05/21/16 Furosemide* (Furosemide*) 40 Mg Tablet, 40 MG PO DAILY, TAB 05/21/16 Benazepril Hcl* (Benazepril Hcl*) 20 Mg Tablet, 20 MG PO DAILY, #30 TAB 05/21/16 Allergies Allergies: Coded Allergies: No Known Allergy (Unverified , 07/02/16) PMhx/Soc History of Surgery: Yes (Brain tumor removal 2015) Anesthesia Reaction: No Hx Neurological Disorder: Yes (CVA) Hx Respiratory Disorders: Yes (COPD) Hx Cardiac Disorders: Yes (HTN,CHF) Hx Psychiatric Problems: No (Patient denies any history of anxiety, depression or MH) Hx Miscellaneous Medical Probl: Yes (Methamphetamine abuse,Hypothyroidism) Hx Alcohol Use: No Hx Substance Use: Yes (Methamphetamines) Hx Tobacco Use: Yes (QUIT CIGARETTES 35 YEARS) Smoking Status: Former smoker Physical Exam Vitals Vital Signs Date Time Temp Pulse Resp B/P Pulse Ox O2 Delivery O2 Flow Rate FiO2 11/20/16 04:05 97.8 136 26 93/59 100 Nasal Cannula 2.0 11/20/16 04:05 Nasal Cannula 2.0 11/20/16 04:05 Nasal Cannula 2 11/20/16 03:49 97.8 134 26 135/109 98 Physical Exam Const: [] Head: Atraumatic Eyes: Normal Conjunctiva ENT: Normal External Ears, Nose and Mouth. Neck: Full range of motion..~ No meningismus. Resp: Clear to auscultation bilaterally Cardio: Regular rate and rhythm, no murmurs Abd: Soft, non tender, non distended. Normal bowel sounds Skin: No petechiae or rashes Back: No midline or flank tenderness Ext: No cyanosis, or edema Neur: Awake and alert Psych: Normal Mood and Affect Results 24 hrs Current Medications Medications (Trade) Dose Ordered Sig/Marck Route PRN Reason Start Time Stop Time Status Last Admin Dose Admin Sodium Chloride (NS) 1,000 ml @ 1,000 mls/hr Q1H STAT IV 11/20/16 04:13 11/20/16 05:12 DC 11/20/16 04:34 Diltiazem HCl (Cardizem) 90 mg ONCE ONCE PO 11/20/16 04:30 11/20/16 04:31 DC Diltiazem HCl (Cardizem Iv) 10 mg ONCE ONCE IV 11/20/16 04:30 11/20/16 04:31 DC 11/20/16 04:31 Diltiazem HCl (Cardizem Iv) 25 mg STK-MED ONCE .ROUTE 11/20/16 04:27 11/20/16 04:28 DC Procedures/MDM EKG: Rate/Rhythm: Irregularly irregular rhythm with a tachycardic rate QRS, ST, T-waves: No changes consistent w/ acute ischemia Impression: A. fib with RVR] Chest X-ray 1V Interpreted by me: Soft Tissue: No acute abnormalities Bones: No acute abnormalities Mediastinum/Cardiac Silhouette/Lungs: No acute abnormalities Medical decision-making: Patient with A. fib with RVR. Treated with intravenous Cardizem with good response. Patient will be admitted for the evaluation and management to telemetry unit to hospitalist. Critical Care: Time: 45 minutes Treatments/Evaluations: Close monitoring and treatment of unstable vital signs, cardiorespiratory, and neurologic status, while maintaining tight balance of fluid, respiratory, and cardiac interventions. Departure Condition: Serious SHRUTHIVADIMNILAMNATHAN SmithMartha Nov 20, 2016 05:49
[2016-11-20 06:05] LABS: BASOPHILS % 0.6 % (0.0-2.0); EOSINOPHILS # 0.1 10^3/ul (0.0-0.5); EOSINOPHILS % 1.7 % (0.0-7.0); HEMATOCRIT 38.9 % (37.0-47.0); LYMPHOCYTES # 1.3 10^3/ul (0.8-2.9); LYMPHOCYTES % 18.3 % (15.0-51.0); MEAN CORPUSCULAR HGB CONC 30.8 g/dl (32.0-37.0); MEAN CORPUSCULAR VOLUME 90.7 fl (82.0-101.0); MEAN PLATELET VOLUME 10.5 fl (7.4-10.4); MONOCYTE # 0.5 10^3/ul (0.3-0.9); MONOCYTES % 7.7 % (0.0-11.0); NEUTROPHILS % 71.4 % (39.0-77.0); NUCLEATED RED BLOOD CELLS% 0.4 /100WBC (0.0-0.0); PLATELET COUNT 210 10^3/UL (140-415); RED BLOOD COUNT 4.29 10^6/ul (4.20-5.40); RED CELL DISTRIBUTION WIDTH 15.9 % (11.5-14.5)
[2016-11-20] MEDS ORDERED: SITA100T8 PO (06:22)
[2016-11-20 06:23] LABS: ALBUMIN/GLOBULIN RATIO 1.08; BILIRUBIN,INDIRECT 0.9 mg/dl (0-1.1); BILIRUBIN,TOTAL 0.9 mg/dl (0.2-1.3); CALCIUM 9.3 mg/dl (8.4-10.2); CREATININE 0.72 mg/dl (0.44-1.00); INR 1.23; POTASSIUM 4.9 mmol/L (3.5-5.1); PROTIME 15.6 Sec (12.2-14.2); PT RATIO 1.2; TOTAL PROTEIN 7.7 g/dl (6.1-8.1)
[2016-11-20 06:24] LABS: PARTIAL THROMBOPLASTIN TIME 29.7 Sec (25.0-35.0)
--- NOTE | 2016-11-20 06:28 | RADRPT ---
PROCEDURE: XR Chest. CLINICAL INDICATION: Chest pain TECHNIQUE: An AP view of the chest was obtained. COMPARISON: Chest x-ray dated 09/26/2016 FINDINGS: There is prominence of the interstitial and central pulmonary vascular markings. No pleural effus ion or pneumothorax is seen. The cardiomediastinal silhouette is severely enlarged. Calcifications are seen within the aortic arch. The osseous structures demonstrate senescent changes. IMPRESSION: Severe cardiomegaly with pulmonary vascular congestion/interstitial edema. No significant interval c horacioe. RPTAT: HH .Evelia Jain MD, MD Date Time Electronically viewed and signed by .Evelia Jain MD, MD on 11/20/2016 06:28 .G/
[2016-11-20] MEDS ORDERED: ONDANSETRON 4 MG INJ IV PRN (06:30)
[2016-11-20] MEDS ORDERED: LORAZEPAM 0.5 MG TAB PO PRN (06:30)
[2016-11-20] MEDS ORDERED: NITROGLYCERIN (SL) 0.4 MG TAB SL PRN (06:30)
[2016-11-20] MEDS ORDERED: NACL 0.9% 3 ML SYG IV SCH (06:30)
[2016-11-20] MEDS ORDERED: ACETAMINOPHEN 325 MG TAB PO PRN (06:30)
[2016-11-20] MEDS ORDERED: LEVALBUTEROL (HFA) 15 GM INHALER INH PRN (06:30)
[2016-11-20 06:36] LABS: TROPONIN-I 0.043 ng/ml (0.00-0.12)
[2016-11-20] MEDS ORDERED: GLUCOSE GEL 15 GRAM TUBE PO PRN ×2 (08:00)
[2016-11-20] MEDS ORDERED: GLUCOSE GEL 15 GRAM TUBE BUCCAL PRN (08:00)
[2016-11-20] MEDS ORDERED: GLUCAGON 1 MG INJ IM PRN (08:00)
[2016-11-20] MEDS ORDERED: DEXTROSE 50% 50 ML SYRINGE IV PRN ×2 (08:00)
[2016-11-20] MEDS: ENOXAPARIN 40 MG/0.4 ML SYG SC SCH (09:00)
[2016-11-20] MEDS ORDERED: DILTIAZEM-D5W 125MG/125ML DRIP 125 ML IV SCH (10:00)
[2016-11-20] MEDS: LEVETIRACETAM 500 MG TAB PO SCH ×2 (10:24→20:51)
[2016-11-20] MEDS: SPIRONOLACTONE 25 MG TAB PO SCH (10:25)
[2016-11-20] MEDS: FUROSEMIDE 40 MG TAB PO SCH (10:26)
[2016-11-20] MEDS: metFORMIN 500 MG TAB PO SCH ×2 (10:34→18:32)
[2016-11-20] MEDS: BENAZEPRIL 20 MG TAB PO SCH (10:35)
[2016-11-20] MEDS: LINAGLIPTIN 5 MG TABLET PO SCH (12:13)
--- NOTE | 2016-11-20 12:30 | CONS ---
DATE OF ADMISSION: 11/20/2016 DATE OF CONSULTATION: 11/20/2016 REFERRING PHYSICIAN: Сергей Esquivel MD REASON FOR CONSULTATION: Atrial fibrillation. 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 The patient is in gross fluid overload. I asked her if she was compliant with her medicines and she was supposed to take Eliquis but I am not sure if this is the case. For now, conservative therapy is expected. Will continue to optimize the patient's fluid status. She will be diuresed as indicated and will continue to optimize fluid status as necessary. PAST MEDICAL HISTORY: Hypertension, dyslipidemia, history of amphetamine use, history of cardiomyopathy with reduced ejection fraction, atrial fibrillation, medical noncompliance. ALLERGIES: NO KNOWN DRUG ALLERGIES. SOCIAL HISTORY: The patient has a history of amphetamine use and possible history of alcohol use. FAMILY HISTORY: Negative for sudden cardiac or premature coronary artery disease. MEDICATION: It does not appear that the patient has been taking any medications recently. Here in the hospital she is on Diltiazem drip, Lovenox subcutaneously, Benazepril, Senokot, Lasix, metformin 1 gram p.o. daily, IV flushes and lorazepam. REVIEW OF SYSTEMS: GENERAL: No fevers, no chills. HEENT: Moist oral cavity. CARDIAC: Atrial fibrillation with rapid ventricular response. GASTROINTESTINAL: No nausea or vomiting. PSYCHIATRIC: History of agitation and possible psychiatric illness. PHYSICAL EXAMINATION: VITAL SIGNS: Currently temperature 98.7, heart rate 132 in atrial fibrillation, blood pressure 135/121. GENERAL APPEARANCE: She is a well nourished woman unable to communicate. HEENT: Head is normocephalic. NECK: Supple, JVD is 9-10 cm. CARDIAC: Heart is irregularly irregular with PMI first intercostal space. LUNGS: Scattered wheezes. ABDOMEN: Not distended. Bowel sounds are present. EXTREMITIES: Some edema. LABORATORY: EKG read by me showed atrial fibrillation with rapid ventricular response and some nonspecific STT changes. White count 10.0, hemoglobin 12.0, platelets 210,000. INR is 1.3. Sodium 143, potassium 4.9, troponin negative at 0.43. BMP is over 4000. IMPRESSION AND PLAN: 1. Atrial fibrillation with rapid ventricular response. She is anticoagulated now. Will initiate Diltiazem drip to rate control. Will try to resume home medications as tolerated. The patient is noncompliant with therapy and I think there might be a risk and I think aspirin would be appropriate for now. 2. Congestive heart failure. The patient's heart failure is systolic, acute on chronic. Continue gentle diuresis. 3. Medical noncompliance. Encourage the patient to be compliant with medicines and stop amphetamine use if possible. 4. Psychiatric illness. Continue to treat by primary team. 5. Shortness of breath, improved with diuresis. Continue diuresis. I would like to thank Сергей Esquivel MD for referring this patient for my evaluation. Dictated By: Aries Sandoval MD /lc/monik /Document#: [id number]
[2016-11-20] MEDS ORDERED: DILTIAZEM-D5W 125MG/125ML DRIP 125 ML IV PRN (17:30)
[2016-11-21] VITALS (14 sets, daily range): BP systolic 90–130; BP diastolic 58–69; PULSE 46–94; RESP 17–20
--- NOTE | 2016-11-21 06:35 | HP ---
Date/Time of Note Date/Time of Note DATE: 11/20/16 TIME: 06:23 Assessment/Plan VTE Prophylaxis VTE Prophylaxis Intervention: SCD's Lines/Catheters IV [facility]ter [facility] Saline Lock Assessment/Plan Assessment/Plan 1. A-fib with RVR -Continue beta-avery and aspirin. Patient does have a history of mid amphetamines abuse and I strongly suspect medication compliance as well and as such no blood thinners. -Cardizem drip as needed -Cardiology consult 2. History of cardiomyopathy with systolic dysfunction with EF of 20%: Most likely related to amphetamine abuse -Continue cardiac meds 3. Type 2 diabetes -Insulin while in-house 4. History of CVA -Aspirin and statin 5. History of COPD: shortness of breath seems to be related to palpitation and her being anxious -will place on Supplemental oxygen, with as needed bronchodilators and steroid 6. History of methamphetamine abuse: -Per patient last use was in March of this year HPI/ROS Admit Date/Time Admit Date/Time Nov 20, 2016 at 05:47 Hx of Present Illness This is a 55-year-old female with past medical history of atrial fibrillation, CVA, cardiomyopathy with systolic function of 20%, history of V-tach, COPD, pulmonary hypertension, diabetes mellitus type 2, methamphetamine abuse who presented to the emergency department complaining of shortness of breath and palpitations. She said she was sitting on a couch watching TV when she started experiencing acute onset palpitations and shortness of breath. Denied chest pain. She also has a history of methamphetamine abuse but stated that her last use was in March of this year. Currently patient does appear anxious with mild shortness of breath. She is however able to speak in full sentences. When she presented to the ER, she was found to be in rapid A-fib with a heart rate as high as almost 140. . PMH/Family/Social Past Medical History atrial fibrillation CVA Cardiomyopathy with systolic dysfunction COPD Diabetes Social History Alcohol Use: other Smoking Status: Former smoker Drug Use: other (History of methamphetamine) Exam/Review of Systems Vital Signs Vitals Vital Signs Date Time Temp Pulse Resp B/P Pulse Ox O2 Delivery O2 Flow Rate FiO2 11/21/16 04:14 76 11/21/16 04:04 98.6 17 100/68 96 11/21/16 00:56 Nasal Cannula 4.0 Intake and Output 11/20/16 11/20/16 11/21/16 15:00 23:00 07:00 Intake Total 450 ml Balance 450 ml Exam Constitutional: other (Appears anxious with mild shortness of breath.) Head: atraumatic, normocephalic Eyes: EOMI, PERRL ENMT: other (Several missing tooth) Respiratory: clear to auscultation Cardiovascular: irregular rhythm Gastrointestinal: non-tender, soft Extremities: normal pulses Labs Result Diagram: 11/20/1652611/20/16526 Medications Medications Current Medications Lorazepam (Ativan) 0.5 mg Q8H PRN PO ANXIETY; Start 11/20/16 at 06:30 Ondansetron HCl (Zofran Inj) 4 mg Q6H PRN IV NAUSEA AND/OR VOMITING; Start at 06:30 Nitroglycerin (Nitroglycerin (Sl Tab) 0.4 Mg) 1 tab Q5M PRN SL CHEST PAIN; Start 11/20/16 at 06:30 Acetaminophen (Tylenol Tab) 650 mg Q6H PRN PO PAIN LEVEL 1-3 OR FEVER; Start at 06:30 Morphine Sulfate (morphine) 2 mg Q4H PRN IV PAIN LEVEL 7-10; Start 11/20/16 at 06:30 Enoxaparin Sodium (Lovenox) 40 mg DAILY SC ; Start 11/20/16 at 09:00 Benazepril HCl (Lotensin) 20 mg DAILY PO Last administered on 11/20/16 10:35; Admin Dose 20 MG; Start 11/20/16 at 09:00 Furosemide (Lasix) 40 mg DAILY PO Last administered on 11/20/16 10:26; Admin Dose 40 MG; Start 11/20/16 at 09:00 Levetiracetam (Keppra) 1,000 mg BID PO Last administered on 11/20/16 20:51; Admin Dose 1,000 MG; Start 11/20/16 at 09:00 Spironolactone (Aldactone) 25 mg DAILY PO Last administered on 11/20/16 10:25 ; Admin Dose 25 MG; Start 11/20/16 at 09:00 Linagliptin (Tradjenta) 5 mg DAILY PO Last administered on 11/20/16 12:13; Admin Dose 5 MG; Start 11/20/16 at 09:00 Miscellaneous Information 1 ea NOTE XX ; Start 11/20/16 at 08:00 Glucose (Glutose) 15 gm Q15M PRN PO DECREASED GLUCOSE; Start 11/20/16 at 08:00 Glucose (Glutose) 22.5 gm Q15M PRN PO DECREASED GLUCOSE; Start 11/20/16 at 08: 00 Dextrose (D50w Syringe) 25 ml Q15M PRN IV DECREASED GLUCOSE; Start 11/20/16 at 08:00 Dextrose (D50w Syringe) 50 ml Q15M PRN IV DECREASED GLUCOSE; Start 11/20/16 at 08:00 Glucagon (Glucagen) 1 mg Q15M PRN IM DECREASED GLUCOSE; Start 11/20/16 at 08:00 Glucose 15 gm 15 gm Q15M PRN BUCCAL DECREASED GLUCOSE; Start 11/20/16 at 08:00 Diltiazem HCl (Cardizem-D5W 125 Mg/125 ml Drip) 125 ml @ 5 mls/hr TITRATE PRN IV IV PROTOCOL; Start 11/20/16 at 17:30 Carvedilol (Coreg) 25 mg BID PO Last administered on 11/20/16t 20:51; Admin Dose 25 MG; Start 11/20/16 at 21:00 NATHAN DE JESUS MD Nov 21, 2016 06:34
[2016-11-21 07:16] LABS: BASOPHILS % 0.3 % (0.0-2.0); EOSINOPHILS # 0.2 10^3/ul (0.0-0.5); EOSINOPHILS % 2.7 % (0.0-7.0); HEMATOCRIT 37.3 % (37.0-47.0); HEMOGLOBIN 11.5 g/dl (12.0-16.0); LYMPHOCYTES # 0.9 10^3/ul (0.8-2.9); MEAN CORPUSCULAR HEMOGLOBIN 28.7 pg (29.0-33.0); MEAN CORPUSCULAR HGB CONC 30.8 g/dl (32.0-37.0); MEAN PLATELET VOLUME 10.6 fl (7.4-10.4); MONOCYTE # 0.5 10^3/ul (0.3-0.9); NEUTROPHILS % 72.7 % (39.0-77.0); PLATELET COUNT 170 10^3/UL (140-415); RED BLOOD COUNT 4.01 10^6/ul (4.20-5.40); RED CELL DISTRIBUTION WIDTH 15.5 % (11.5-14.5); WHITE BLOOD COUNT 5.9 10^3/ul (4.8-10.8)
[2016-11-21 08:02] LABS: ALBUMIN 3.5 g/dl (3.3-4.9); BILIRUBIN,INDIRECT 0.8 mg/dl (0-1.1); BILIRUBIN,TOTAL 0.8 mg/dl (0.2-1.3); CHOL/HDL RATIO 5.8 RATIO; CREATININE 0.74 mg/dl (0.44-1.00); MAGNESIUM 1.5 mg/dl (1.7-2.5); POTASSIUM 4.7 mmol/L (3.5-5.1)
[2016-11-21] MEDS: ASPIRIN (EC) 325 MG TAB PO SCH (09:18)
[2016-11-21] MEDS: LEVETIRACETAM 500 MG TAB PO SCH ×2 (09:18→21:20)
[2016-11-21] MEDS: LINAGLIPTIN 5 MG TABLET PO SCH (09:18)
[2016-11-21] MEDS: metFORMIN 500 MG TAB PO SCH ×2 (09:18→18:07)
[2016-11-21] MEDS: FUROSEMIDE 40 MG TAB PO SCH (09:19)
[2016-11-21] MEDS: SPIRONOLACTONE 25 MG TAB PO SCH (09:20)
[2016-11-21] MEDS: ENOXAPARIN 40 MG/0.4 ML SYG SC SCH (09:24)
[2016-11-21] MEDS: BENAZEPRIL 20 MG TAB PO SCH (12:19)
--- NOTE | 2016-11-21 13:29 | PN ---
Date/Time of Note Date/Time of Note DATE: 11/21/16 TIME: 13:25 Assessment/Plan VTE Prophylaxis VTE Prophylaxis Intervention: LMWH Lines/Catheters [facility] Type [facility] Saline Lock Assessment/Plan Chief Complaint/Hosp Course 1. A-fib with RVR-stable -Continue Cardizem -Cardiology consultation appreciated, rec is for aspirin considering patient's history noncompliance and substance abuse 2. History of cardiomyopathy with systolic dysfunction with EF of 20%: Most likely related to amphetamine abuse -Continue cardiac meds 3. Type 2 diabetes -cont Metformin 4. History of CVA -Aspirin and statin 5. History of COPD: shortness of breath seems to be related to palpitation and her being anxious -will place on Supplemental oxygen, with as needed bronchodilators and steroid 6. History of methamphetamine abuse PPx: Lovenox Problems: Subjective 24 Hr Interval Summary Respiratory: shortness of breath Exam/Review of Systems Vital Signs Vitals Vital Signs Date Time Temp Pulse Resp B/P Pulse Ox O2 Delivery O2 Flow Rate FiO2 11/21/16 12:00 98.0 82 20 90/65 99 11/21/16 08:05 Nasal Cannula 4.0 Intake and Output 11/20/16 11/20/16 11/21/16 15:00 23:00 07:00 Intake Total 450 ml 450 ml Balance 450 ml 450 ml Exam Constitutional: alert, oriented Respiratory: clear to auscultation Cardiovascular: regular rate and rhythm Gastrointestinal: soft, No distended Musculoskeletal: nl extremities to inspection Results Result Diagram: 11/21/16 0645 11/21/16 0645 Results 24 hrs Laboratory Tests Test 11/20/16 15:10 11/21/16 06:45 Troponin I 0.031 White Blood Count 5.9 Red Blood Count 4.01 L Hemoglobin 11.5 L Hematocrit 37.3 Mean Corpuscular Volume 93.0 Mean Corpuscular Hemoglobin 28.7 L Mean Corpuscular Hemoglobin Concent 30.8 L Red Cell Distribution Width 15.5 H Platelet Count 170 Mean Platelet Volume 10.6 H Neutrophils % 72.7 Lymphocytes % 16.0 Monocytes % 8.0 Eosinophils % 2.7 Basophils % 0.3 Nucleated Red Blood Cells % 0.0 Neutrophils # (Manual) 4.3 Lymphocytes # 0.9 Monocytes # 0.5 Eosinophils # 0.2 Basophils # 0.0 Nucleated Red Blood Cells # 0.0 Sodium Level 140 Potassium Level 4.7 Chloride Level 98 Carbon Dioxide Level 28 Anion Gap 19 H Blood Urea Nitrogen 17 Creatinine 0.74 Glucose Level 159 Hemoglobin A1c 7.4 H Calcium Level 9.0 Magnesium Level 1.5 L Total Bilirubin 0.8 Direct Bilirubin 0.00 Indirect Bilirubin 0.8 Aspartate Amino Transf (AST/SGOT) 29 Alanine Aminotransferase (ALT/SGPT) 36 Alkaline Phosphatase 91 Total Protein 7.0 Albumin 3.5 Globulin 3.50 H Albumin/Globulin Ratio 1.00 Triglycerides Level 63 Cholesterol Level 112 LDL Cholesterol, Calculated 80 HDL Cholesterol 19 L Cholesterol/HDL Ratio 5.8 Medications Medications Current Medications Lorazepam (Ativan) 0.5 mg Q8H PRN PO ANXIETY; Start 11/20/16 at 06:30 Ondansetron HCl (Zofran Inj) 4 mg Q6H PRN IV NAUSEA AND/OR VOMITING; Start at 06:30 Nitroglycerin (Nitroglycerin (Sl Tab) 0.4 Mg) 1 tab Q5M PRN SL CHEST PAIN; Start 11/20/16 at 06:30 Acetaminophen (Tylenol Tab) 650 mg Q6H PRN PO PAIN LEVEL 1-3 OR FEVER; Start at 06:30 Morphine Sulfate (morphine) 2 mg Q4H PRN IV PAIN LEVEL 7-10; Start 11/20/16 at 06:30 Enoxaparin Sodium (Lovenox) 40 mg DAILY SC Last administered on 11/21/16 09:24 ; Admin Dose 40 MG; Start 11/20/16 at 09:00 Benazepril HCl (Lotensin) 20 mg DAILY PO Last administered on 11/20/16 10:35; Admin Dose 20 MG; Start 11/20/16 at 09:00 Furosemide (Lasix) 40 mg DAILY PO Last administered on 11/21/16 09:19; Admin Dose 40 MG; Start 11/20/16 at 09:00 Levetiracetam (Keppra) 1,000 mg BID PO Last administered on 11/21/16 09:18; Admin Dose 1,000 MG; Start 11/20/16 at 09:00 Spironolactone (Aldactone) 25 mg DAILY PO Last administered on 11/21/16 09:20 ; Admin Dose 25 MG; Start 11/20/16 at 09:00 Linagliptin (Tradjenta) 5 mg DAILY PO Last administered on 11/21/16 09:18; Admin Dose 5 MG; Start 11/20/16 at 09:00 Miscellaneous Information 1 ea NOTE XX ; Start 11/20/16 at 08:00 Glucose (Glutose) 15 gm Q15M PRN PO DECREASED GLUCOSE; Start 11/20/16 at 08:00 Glucose (Glutose) 22.5 gm Q15M PRN PO DECREASED GLUCOSE; Start 11/20/16 at 08: 00 Dextrose (D50w Syringe) 25 ml Q15M PRN IV DECREASED GLUCOSE; Start 11/20/16 at 08:00 Dextrose (D50w Syringe) 50 ml Q15M PRN IV DECREASED GLUCOSE; Start 11/20/16 at 08:00 Glucagon (Glucagen) 1 mg Q15M PRN IM DECREASED GLUCOSE; Start 11/20/16 at 08:00 Glucose 15 gm 15 gm Q15M PRN BUCCAL DECREASED GLUCOSE; Start 11/20/16 at 08:00 Diltiazem HCl (Cardizem-D5W 125 Mg/125 ml Drip) 125 ml @ 5 mls/hr TITRATE PRN IV IV PROTOCOL; Start 11/20/16 at 17:30 Carvedilol (Coreg) 25 mg BID PO Last administered on 11/21/16 09:19; Admin Dose 25 MG; Start 11/20/16 at 21:00 Aspirin (Ecotrin) 325 mg DAILY PO Last administered on 11/21/16 09:18; Admin Dose 325 MG; Start 11/21/16 at 09:00 Atorvastatin Calcium (Lipitor) 20 mg HS PO ; Start 11/21/16 at 21:00 MAURILIO AMEZQUITA Nov 21, 2016 13:29
[2016-11-21] MEDS ORDERED: MAGNESIUM SULFATE 4 GM/100 ML 100 ML IVPB ONE (13:30)
[2016-11-21] MEDS ORDERED: LORAZEPAM 1 MG TAB ONE (14:39)
--- NOTE | 2016-11-21 16:09 | CONS ---
Date/Time of Note Date/Time of Note DATE: 11/21/16 TIME: 16:02 Assessment/Plan Assessment/Plan Chief Complaint/Hosp Course IMP: 1.CHF-systolic acute on chronic 2.cardiomyopathy-EF 20% by echo 05/11 3.HTN 4.abnl ecg 5. Hypercholesterolemia 6.H/O substance abuse Recc: -Tele -serial ecg's -Continue asa/coreg/[id number] -increase lasix diuresis -Follow HR closely Problems: Consultation Date/Type/Reason Admit Date/Time Nov 20, 2016 at 05:47 Initial Consult Date 11/20/2016 Type of Consultation: cardiology Reason for Consultation AF/cardiomyopathy/CHF Referring Provider: MAURILIO AMEZQUITA Exam/Review of Systems Vital Signs Vitals Vital Signs Date Time Temp Pulse Resp B/P Pulse Ox O2 Delivery O2 Flow Rate FiO2 11/21/16 12:16 82 11/21/16 12:00 98.0 20 90/65 99 11/21/16 08:05 Nasal Cannula 4.0 Intake and Output 11/20/16 11/20/16 11/21/16 15:00 23:00 07:00 Intake Total 450 ml 450 ml Balance 450 ml 450 ml Exam Review of Systems: CONSTITUTIONAL: No fevers, chills. PULMONARY: No sob CARDIOVASCULAR: No chest pain/palpitations GASTROINTESTINAL: No nausea/vomiting. GENITOURINARY: No hematuria/dysuria. MUSCULOSKELETAL: No myagias/arthalgias. PSYCHIATRIC: The patient denies depression. NEUROLOGIC: No weakness Constitutional: alert, oriented Psych: no complaints Head: normocephalic ENMT: mucosa pink and moist Neck: jvd (9 cm water), supple Respiratory: diminished breath sounds (at bases/B) Cardiovascular: irregular rhythm Gastrointestinal: non-tender, soft Musculoskeletal: muscle tone (normal) Extremities: edema (none) Neurological: other (No focal deficits) Results Result Diagram: 11/21/16 0645 11/21/16 0645 Results 24 hrs Laboratory Tests Test 11/21/16 06:45 White Blood Count 5.9 Red Blood Count 4.01 L Hemoglobin 11.5 L Hematocrit 37.3 Mean Corpuscular Volume 93.0 Mean Corpuscular Hemoglobin 28.7 L Mean Corpuscular Hemoglobin Concent 30.8 L Red Cell Distribution Width 15.5 H Platelet Count 170 Mean Platelet Volume 10.6 H Neutrophils % 72.7 Lymphocytes % 16.0 Monocytes % 8.0 Eosinophils % 2.7 Basophils % 0.3 Nucleated Red Blood Cells % 0.0 Neutrophils # (Manual) 4.3 Lymphocytes # 0.9 Monocytes # 0.5 Eosinophils # 0.2 Basophils # 0.0 Nucleated Red Blood Cells # 0.0 Sodium Level 140 Potassium Level 4.7 Chloride Level 98 Carbon Dioxide Level 28 Anion Gap 19 H Blood Urea Nitrogen 17 Creatinine 0.74 Glucose Level 159 Hemoglobin A1c 7.4 H Calcium Level 9.0 Magnesium Level 1.5 L Total Bilirubin 0.8 Direct Bilirubin 0.00 Indirect Bilirubin 0.8 Aspartate Amino Transf (AST/SGOT) 29 Alanine Aminotransferase (ALT/SGPT) 36 Alkaline Phosphatase 91 Total Protein 7.0 Albumin 3.5 Globulin 3.50 H Albumin/Globulin Ratio 1.00 Triglycerides Level 63 Cholesterol Level 112 LDL Cholesterol, Calculated 80 HDL Cholesterol 19 L Cholesterol/HDL Ratio 5.8 Medications Medications Current Medications Lorazepam (Ativan) 0.5 mg Q8H PRN PO ANXIETY Last administered on 11/21/16 14: 44; Admin Dose 0.5 MG; Start 11/20/16 at 06:30 Ondansetron HCl (Zofran Inj) 4 mg Q6H PRN IV NAUSEA AND/OR VOMITING; Start at 06:30 Nitroglycerin (Nitroglycerin (Sl Tab) 0.4 Mg) 1 tab Q5M PRN SL CHEST PAIN; Start 11/20/16 at 06:30 Acetaminophen (Tylenol Tab) 650 mg Q6H PRN PO PAIN LEVEL 1-3 OR FEVER; Start at 06:30 Morphine Sulfate (morphine) 2 mg Q4H PRN IV PAIN LEVEL 7-10; Start 11/20/16 at 06:30 Enoxaparin Sodium (Lovenox) 40 mg DAILY SC Last administered on 11/21/16 09:24 ; Admin Dose 40 MG; Start 11/20/16 at 09:00 Benazepril HCl (Lotensin) 20 mg DAILY PO Last administered on 11/20/16 10:35; Admin Dose 20 MG; Start 11/20/16 at 09:00 Furosemide (Lasix) 40 mg DAILY PO Last administered on 11/21/16 09:19; Admin Dose 40 MG; Start 11/20/16 at 09:00 Levetiracetam (Keppra) 1,000 mg BID PO Last administered on 11/21/16 09:18; Admin Dose 1,000 MG; Start 11/20/16 at 09:00 Spironolactone (Aldactone) 25 mg DAILY PO Last administered on 11/21/16 09:20 ; Admin Dose 25 MG; Start 11/20/16 at 09:00 Linagliptin (Tradjenta) 5 mg DAILY PO Last administered on 11/21/16 09:18; Admin Dose 5 MG; Start 11/20/16 at 09:00 Miscellaneous Information 1 ea NOTE XX ; Start 11/20/16 at 08:00 Glucose (Glutose) 15 gm Q15M PRN PO DECREASED GLUCOSE; Start 11/20/16 at 08:00 Glucose (Glutose) 22.5 gm Q15M PRN PO DECREASED GLUCOSE; Start 11/20/16 at 08: 00 Dextrose (D50w Syringe) 25 ml Q15M PRN IV DECREASED GLUCOSE; Start 11/20/16 at 08:00 Dextrose (D50w Syringe) 50 ml Q15M PRN IV DECREASED GLUCOSE; Start 11/20/16 at 08:00 Glucagon (Glucagen) 1 mg Q15M PRN IM DECREASED GLUCOSE; Start 11/20/16 at 08:00 Glucose 15 gm 15 gm Q15M PRN BUCCAL DECREASED GLUCOSE; Start 11/20/16 at 08:00 Diltiazem HCl (Cardizem-D5W 125 Mg/125 ml Drip) 125 ml @ 5 mls/hr TITRATE PRN IV IV PROTOCOL; Start 11/20/16 at 17:30 Carvedilol (Coreg) 25 mg BID PO Last administered on 11/21/16 09:19; Admin Dose 25 MG; Start 11/20/16 at 21:00 Aspirin (Ecotrin) 325 mg DAILY PO Last administered on 11/21/16 09:18; Admin Dose 325 MG; Start 11/21/16 at 09:00 Atorvastatin Calcium 20 mg 20 mg HS PO ; Start 11/21/16 at 21:00 Magnesium Sulfate (Magnesium Sulfate 4 Gm/100 ml) 100 ml @ 25 mls/hr ONCE ONCE IVPB Last administered on 11/21/16 14:44; Admin Dose 25 MLS/HR; Start at 13:30; Stop 11/21/16 at 17:29 DAJA CROSS Nov 21, 2016 16:08
[2016-11-21] MEDS: LORAZEPAM 1 MG TAB PO PRN (16:42)
[2016-11-21] MEDS: INSULIN ASPART [NOVOLOG] 3 ML PEN SC SCH ×2 (18:08→21:24)
[2016-11-21] MEDS: ATORVASTATIN 20 MG TAB PO SCH (21:20)
[2016-11-22] VITALS (10 sets, daily range): BP systolic 83–137; BP diastolic 58–95; PULSE 81–101; RESP 18–21
[2016-11-22] MEDS: ACCU-CHEK XX SCH (02:08)
[2016-11-22] MEDS: INSULIN ASPART [NOVOLOG] 3 ML PEN SC SCH ×4 (08:00→21:04)
[2016-11-22] MEDS: ASPIRIN (EC) 325 MG TAB PO SCH (08:29)
[2016-11-22] MEDS: LINAGLIPTIN 5 MG TABLET PO SCH (08:30)
[2016-11-22] MEDS: metFORMIN 500 MG TAB PO SCH ×2 (08:30→17:48)
[2016-11-22] MEDS: SPIRONOLACTONE 25 MG TAB PO SCH (08:31)
[2016-11-22] MEDS: FUROSEMIDE 40 MG TAB PO SCH (08:31)
[2016-11-22] MEDS: LEVETIRACETAM 500 MG TAB PO SCH ×2 (08:31→20:59)
[2016-11-22] MEDS: BENAZEPRIL 20 MG TAB PO SCH (08:31)
[2016-11-22] MEDS: ENOXAPARIN 40 MG/0.4 ML SYG SC SCH (08:32)
[2016-11-22] MEDS: LORAZEPAM 1 MG TAB PO PRN (08:34)
[2016-11-22 08:42] LABS: CALCIUM 9.2 mg/dl (8.4-10.2); CREATININE 0.9 mg/dl (0.44-1.00); POTASSIUM 5.3 mmol/L (3.5-5.1)
[2016-11-22 15:39] LABS: AADO2 Arterial 80.6 mmHg (7.0-24.0); Allen Test ACCEPTAB; Arterial Base Excess 2.8 mmol/L (-3.0-3); Arterial COHb 0.1 % (0.0-3.0); Arterial Fraction of Oxyhgb 95.3 % (93.0-99.0); Arterial HCO3 27.6 mmol/L (22.0-26.0); Arterial MetHb 0.2 % (0.0-1.5); Arterial Total Hemglobin 12.9 g/dl (12.0-18.0); MODE NASAL CANNULA
[2016-11-22] MEDS ORDERED: SOD CHLORIDE 0.9% 500 ML IV ONE (17:00)
--- NOTE | 2016-11-22 17:35 | PN ---
Date/Time of Note Date/Time of Note DATE: 11/22/16 TIME: 17:34 Assessment/Plan VTE Prophylaxis VTE Prophylaxis Intervention: LMWH Lines/Catheters IV [facility] Type (from [facility] Saline Lock Urinary Cath still in place: No Assessment/Plan Chief Complaint/Hosp Course 1. A-fib with RVR-stable but continues to be in A. fib -Continue Coreg -Cardiology consultation appreciated, rec is for aspirin considering patient's history noncompliance and substance abuse 2. History of cardiomyopathy with systolic dysfunction with EF of 20%: Most likely related to amphetamine abuse -Continue cardiac meds 3. Type 2 diabetes -cont Metformin 4. History of CVA -Aspirin and statin 5. History of COPD: shortness of breath seems to be related to palpitation and her being anxious -will place on Supplemental oxygen, with as needed bronchodilators and steroid 6. History of methamphetamine abuse 7. Acute encephalopathy possibly secondary to delirium PPx: Lovenox Problems: Subjective 24 Hr Interval Summary Constitutional: disoriented Exam/Review of Systems Vital Signs Vitals Vital Signs Date Time Temp Pulse Resp B/P Pulse Ox O2 Delivery O2 Flow Rate FiO2 11/22/16 16:16 91 11/22/16 13:52 Nasal Cannula 3.0 11/22/16 12:00 98.2 18 130/60 95 Intake and Output 11/21/16 11/21/16 11/22/16 15:00 23:00 07:00 Intake Total 940 ml Output Total 450 ml Balance 490 ml Exam Constitutional: alert Psych: confusion Respiratory: clear to auscultation Cardiovascular: regular rate and rhythm Gastrointestinal: soft, No distended Musculoskeletal: nl extremities to inspection Results Result Diagram: 11/21/16 0645 11/22/16 0735 Results 24 hrs Laboratory Tests Test 11/21/16 18:06 11/21/16 20:50 11/22/16 07:35 11/22/16 07:54 Bedside Glucose 155 165 134 Sodium Level 136 Potassium Level 5.3 H Chloride Level 95 L Carbon Dioxide Level 27 Anion Gap 19 H Blood Urea Nitrogen 22 H Creatinine 0.90 Glucose Level 129 Calcium Level 9.2 Magnesium Level 2.0 Test 11/22/16 12:14 11/22/16 14:27 11/22/16 17:12 Bedside Glucose 132 142 Blood Gas Specimen Source Blood arterial Arterial Blood Date Drawn 11/22/2016 3:30:02 PM Arterial Blood pH (Temp corrected) 7.424 Arterial Blood pCO2 (Temp correct) 43.1 Arterial Blood pO2 (Temp corrected) 82.7 Arterial Blood HCO3 27.6 H Arterial Blood Base Excess 2.8 Arterial Blood Oxygen Saturation 95.6 Nik Test ACCEPTAB Arterial Blood Gas Puncture Site Right Radial Arterial Blood Carboxyhemoglobin 0.1 Arterial Blood Methemoglobin 0.2 Blood Gas A-a O2 Differential 80.6 H Oxyhemoglobin Percent 95.3 Total Hemoglobin 12.9 Blood Gas Temperature 37.0 Blood Gas Modality NASAL CANNULA FiO2 30.0 Blood Gas Notified Whom JLD Blood Gas Notified Time 11/22/2016 3:39:38 PM Medications Medications Current Medications Ondansetron HCl (Zofran Inj) 4 mg Q6H PRN IV NAUSEA AND/OR VOMITING; Start at 06:30 Nitroglycerin (Nitroglycerin (Sl Tab) 0.4 Mg) 1 tab Q5M PRN SL CHEST PAIN; Start 11/20/16 at 06:30 Acetaminophen (Tylenol Tab) 650 mg Q6H PRN PO PAIN LEVEL 1-3 OR FEVER; Start at 06:30 Morphine Sulfate (morphine) 2 mg Q4H PRN IV PAIN LEVEL 7-10; Start 11/20/16 at 06:30 Enoxaparin Sodium (Lovenox) 40 mg DAILY SC Last administered on 11/22/16 08:32 ; Admin Dose 40 MG; Start 11/20/16 at 09:00 Benazepril HCl (Lotensin) 20 mg DAILY PO Last administered on 11/22/16 08:31; Admin Dose 20 MG; Start 11/20/16 at 09:00 Furosemide (Lasix) 40 mg DAILY PO Last administered on 11/22/16 08:31; Admin Dose 40 MG; Start 11/20/16 at 09:00 Levetiracetam (Keppra) 1,000 mg BID PO Last administered on 11/22/16 08:31; Admin Dose 1,000 MG; Start 11/20/16 at 09:00 Spironolactone (Aldactone) 25 mg DAILY PO Last administered on 11/22/16 08:31 ; Admin Dose 25 MG; Start 11/20/16 at 09:00 Linagliptin (Tradjenta) 5 mg DAILY PO Last administered on 11/22/16 08:30; Admin Dose 5 MG; Start 11/20/16 at 09:00 Miscellaneous Information 1 ea NOTE XX ; Start 11/20/16 at 08:00 Glucose (Glutose) 15 gm Q15M PRN PO DECREASED GLUCOSE; Start 11/20/16 at 08:00 Glucose (Glutose) 22.5 gm Q15M PRN PO DECREASED GLUCOSE; Start 11/20/16 at 08: 00 Dextrose (D50w Syringe) 25 ml Q15M PRN IV DECREASED GLUCOSE; Start 11/20/16 at 08:00 Dextrose (D50w Syringe) 50 ml Q15M PRN IV DECREASED GLUCOSE; Start 11/20/16 at 08:00 Glucagon (Glucagen) 1 mg Q15M PRN IM DECREASED GLUCOSE; Start 11/20/16 at 08:00 Glucose 15 gm 15 gm Q15M PRN BUCCAL DECREASED GLUCOSE; Start 11/20/16 at 08:00 Diltiazem HCl (Cardizem-D5W 125 Mg/125 ml Drip) 125 ml @ 5 mls/hr TITRATE PRN IV IV PROTOCOL; Start 11/20/16 at 17:30 Carvedilol (Coreg) 25 mg BID PO Last administered on 11/22/16 08:30; Admin Dose 25 MG; Start 11/20/16 at 21:00 Aspirin (Ecotrin) 325 mg DAILY PO Last administered on 11/22/16 08:29; Admin Dose 325 MG; Start 11/21/16 at 09:00 Atorvastatin Calcium (Lipitor) 20 mg HS PO Last administered on 11/21/16 21:20 ; Admin Dose 20 MG; Start 11/21/16 at 21:00 Lorazepam (Ativan) 1 mg Q6H PRN PO ANXIETY Last administered on 11/22/16 08:34 ; Admin Dose 1 MG; Start 11/21/16 at 16:30 Diagnostic Test (Pha) 1 ea 1 ea 02 XX Last administered on 11/22/16 02:08; Admin Dose 1 EA; Start 11/22/16 at 02:00 Sodium Chloride (NS) 500 ml @ 500 mls/hr Q1H ONCE IV Last administered on 11/22 17:05; Admin Dose 500 MLS/HR; Start 11/22/16 at 17:00; Stop 11/22/16 at 17 :59 MAURILIO AMEZQUITA Nov 22, 2016 17:35
[2016-11-22] MEDS: ATORVASTATIN 20 MG TAB PO SCH (20:59)
--- NOTE | 2016-11-22 21:48 | CONS ---
Date/Time of Note Date/Time of Note DATE: 11/22/16 TIME: 21:46 Assessment/Plan Assessment/Plan Chief Complaint/Hosp Course IMP: 1.CHF-systolic acute on chronic 2.cardiomyopathy-EF 20% by echo 05/11 3.HTN 4.abnl ecg 5. Hypercholesterolemia 6.H/O substance abuse Recc: -Tele -serial ecg's -complete michi -Continue asa/coreg/benazepril as tolerated and thus will make slight adjustment -increase lasix diuresis -Follow HR closely -add aldactone Problems: Consultation Date/Type/Reason Admit Date/Time Nov 20, 2016 at 05:47 Initial Consult Date 11/20/2016 Type of Consultation: cardiology Reason for Consultation cardiomyopathy Referring Provider: MAURILIO AMEZQUITA Exam/Review of Systems Vital Signs Vitals Vital Signs Date Time Temp Pulse Resp B/P Pulse Ox O2 Delivery O2 Flow Rate FiO2 11/22/16 20:00 101 11/22/16 16:00 98.2 18 83/58 92 11/22/16 13:52 Nasal Cannula 3.0 Intake and Output 11/21/16 11/21/16 11/22/16 15:00 23:00 07:00 Intake Total 940 ml Output Total 450 ml Balance 490 ml Exam Review of Systems: CONSTITUTIONAL: No fevers, chills. PULMONARY: No sob CARDIOVASCULAR: No chest pain/palpitations GASTROINTESTINAL: No nausea/vomiting. GENITOURINARY: No hematuria/dysuria. MUSCULOSKELETAL: No myagias/arthalgias. PSYCHIATRIC: The patient denies depression. NEUROLOGIC: lethargic Constitutional: other (sleeping) Psych: no complaints Head: normocephalic ENMT: mucosa pink and moist Neck: jvd (9 cm water), supple Respiratory: diminished breath sounds (at bases/B) Cardiovascular: regular rate and rhythm Gastrointestinal: non-tender, soft Musculoskeletal: muscle tone (normal) Extremities: pitting pedal edema (BIlateral) Neurological: other (No focal deficits) Results Result Diagram: 11/21/16 0645 11/22/16 0735 Results 24 hrs Laboratory Tests Test 11/22/16 07:35 11/22/16 07:54 11/22/16 12:14 11/22/16 14:27 Sodium Level 136 Potassium Level 5.3 H Chloride Level 95 L Carbon Dioxide Level 27 Anion Gap 19 H Blood Urea Nitrogen 22 H Creatinine 0.90 Glucose Level 129 Calcium Level 9.2 Magnesium Level 2.0 Bedside Glucose 134 132 Blood Gas Specimen Source Blood arterial Arterial Blood Date Drawn 11/22/2016 3:30:02 PM Arterial Blood pH (Temp corrected) 7.424 Arterial Blood pCO2 (Temp correct) 43.1 Arterial Blood pO2 (Temp corrected) 82.7 Arterial Blood HCO3 27.6 H Arterial Blood Base Excess 2.8 Arterial Blood Oxygen Saturation 95.6 Nik Test ACCEPTAB Arterial Blood Gas Puncture Site Right Radial Arterial Blood Carboxyhemoglobin 0.1 Arterial Blood Methemoglobin 0.2 Blood Gas A-a O2 Differential 80.6 H Oxyhemoglobin Percent 95.3 Total Hemoglobin 12.9 Blood Gas Temperature 37.0 Blood Gas Modality NASAL CANNULA FiO2 30.0 Blood Gas Notified Whom JLD Blood Gas Notified Time 11/22/2016 3:39:38 PM Test 11/22/16 17:12 11/22/16 20:58 Bedside Glucose 142 170 Medications Medications Current Medications Ondansetron HCl (Zofran Inj) 4 mg Q6H PRN IV NAUSEA AND/OR VOMITING; Start at 06:30 Nitroglycerin (Nitroglycerin (Sl Tab) 0.4 Mg) 1 tab Q5M PRN SL CHEST PAIN; Start 11/20/16 at 06:30 Acetaminophen (Tylenol Tab) 650 mg Q6H PRN PO PAIN LEVEL 1-3 OR FEVER; Start at 06:30 Morphine Sulfate (morphine) 2 mg Q4H PRN IV PAIN LEVEL 7-10; Start 11/20/16 at 06:30 Enoxaparin Sodium (Lovenox) 40 mg DAILY SC Last administered on 11/22/16 08:32 ; Admin Dose 40 MG; Start 11/20/16 at 09:00 Benazepril HCl (Lotensin) 20 mg DAILY PO Last administered on 11/22/16 08:31; Admin Dose 20 MG; Start 11/20/16 at 09:00 Furosemide (Lasix) 40 mg DAILY PO Last administered on 11/22/16 08:31; Admin Dose 40 MG; Start 11/20/16 at 09:00 Levetiracetam (Keppra) 1,000 mg BID PO Last administered on 11/22/16 20:59; Admin Dose 1,000 MG; Start 11/20/16 at 09:00 Spironolactone (Aldactone) 25 mg DAILY PO Last administered on 11/22/16 08:31 ; Admin Dose 25 MG; Start 11/20/16 at 09:00 Linagliptin (Tradjenta) 5 mg DAILY PO Last administered on 11/22/16 08:30; Admin Dose 5 MG; Start 11/20/16 at 09:00 Miscellaneous Information 1 ea NOTE XX ; Start 11/20/16 at 08:00 Glucose (Glutose) 15 gm Q15M PRN PO DECREASED GLUCOSE; Start 11/20/16 at 08:00 Glucose (Glutose) 22.5 gm Q15M PRN PO DECREASED GLUCOSE; Start 11/20/16 at 08: 00 Dextrose (D50w Syringe) 25 ml Q15M PRN IV DECREASED GLUCOSE; Start 11/20/16 at 08:00 Dextrose (D50w Syringe) 50 ml Q15M PRN IV DECREASED GLUCOSE; Start 11/20/16 at 08:00 Glucagon (Glucagen) 1 mg Q15M PRN IM DECREASED GLUCOSE; Start 11/20/16 at 08:00 Glucose 15 gm 15 gm Q15M PRN BUCCAL DECREASED GLUCOSE; Start 11/20/16 at 08:00 Diltiazem HCl (Cardizem-D5W 125 Mg/125 ml Drip) 125 ml @ 5 mls/hr TITRATE PRN IV IV PROTOCOL; Start 11/20/16 at 17:30 Carvedilol (Coreg) 25 mg BID PO Last administered on 11/22/16 08:30; Admin Dose 25 MG; Start 11/20/16 at 21:00 Aspirin (Ecotrin) 325 mg DAILY PO Last administered on 11/22/16 08:29; Admin Dose 325 MG; Start 11/21/16 at 09:00 Atorvastatin Calcium (Lipitor) 20 mg HS PO Last administered on 11/22/16 20:59 ; Admin Dose 20 MG; Start 11/21/16 at 21:00 Lorazepam (Ativan) 1 mg Q6H PRN PO ANXIETY Last administered on 11/22/16 08:34 ; Admin Dose 1 MG; Start 11/21/16 at 16:30 Diagnostic Test (Pha) (Accu-Chek) 1 ea 02 XX Last administered on 11/22/16 02: 08; Admin Dose 1 EA; Start 11/22/16 at 02:00 DAJA CROSS Nov 22, 2016 21:48
[2016-11-23] VITALS (12 sets, daily range): BP systolic 100–137; BP diastolic 61–71; PULSE 79–97; RESP 19–20
[2016-11-23] MEDS: ACCU-CHEK XX SCH (02:00)
[2016-11-23] MEDS: FUROSEMIDE 40 MG INJ IV SCH ×2 (06:00→18:00)
[2016-11-23] MEDS: INSULIN ASPART [NOVOLOG] 3 ML PEN SC SCH ×4 (08:53→20:42)
[2016-11-23] MEDS: metFORMIN 500 MG TAB PO SCH ×2 (08:54→18:15)
[2016-11-23] MEDS: ENOXAPARIN 40 MG/0.4 ML SYG SC SCH (08:55)
[2016-11-23] MEDS: LINAGLIPTIN 5 MG TABLET PO SCH (08:56)
[2016-11-23] MEDS: ASPIRIN (EC) 325 MG TAB PO SCH (08:56)
[2016-11-23] MEDS: LEVETIRACETAM 500 MG TAB PO SCH ×2 (08:56→20:42)
[2016-11-23] MEDS: SPIRONOLACTONE 25 MG TAB PO SCH (08:56)
[2016-11-23] MEDS: BENAZEPRIL 20 MG TAB PO SCH (08:56)
[2016-11-23] MEDS ORDERED: SPIRONOLACTONE 25 MG TAB PO SCH (09:00)
[2016-11-23 11:25] LABS: BASOPHILS % 0.4 % (0.0-2.0); EOSINOPHILS # 0.1 10^3/ul (0.0-0.5); EOSINOPHILS % 1.3 % (0.0-7.0); HEMATOCRIT 37.2 % (37.0-47.0); HEMOGLOBIN 11.7 g/dl (12.0-16.0); LYMPHOCYTES # 0.8 10^3/ul (0.8-2.9); LYMPHOCYTES % 9.3 % (15.0-51.0); MEAN CORPUSCULAR HEMOGLOBIN 28.3 pg (29.0-33.0); MEAN CORPUSCULAR HGB CONC 31.5 g/dl (32.0-37.0); MEAN CORPUSCULAR VOLUME 90.1 fl (82.0-101.0); MEAN PLATELET VOLUME 10.4 fl (7.4-10.4); MONOCYTE # 0.8 10^3/ul (0.3-0.9); MONOCYTES % 9.7 % (0.0-11.0); NEUTROPHILS % 78.9 % (39.0-77.0); PLATELET COUNT 172 10^3/UL (140-415); RED BLOOD COUNT 4.13 10^6/ul (4.20-5.40); RED CELL DISTRIBUTION WIDTH 15.6 % (11.5-14.5); WHITE BLOOD COUNT 8.5 10^3/ul (4.8-10.8)
[2016-11-23 11:34] LABS: CALCIUM 8.6 mg/dl (8.4-10.2); CREATININE 0.98 mg/dl (0.44-1.00); MAGNESIUM 1.7 mg/dl (1.7-2.5); POTASSIUM 4.2 mmol/L (3.5-5.1)
[2016-11-23] MEDS: DIGOXIN 0.125 MG TAB PO SCH (12:44)
--- NOTE | 2016-11-23 14:51 | PN ---
Date/Time of Note Date/Time of Note DATE: 11/23/16 TIME: 14:49 Assessment/Plan VTE Prophylaxis VTE Prophylaxis Intervention: LMWH Lines/Catheters [facility] Type (from [facility]): Saline Lock Urinary Cath still in place: No Assessment/Plan Chief Complaint/Hosp Course 1. A-fib with RVR-stable -Continue Coreg -Cardiology consultation appreciated, rec is for aspirin considering patient's history noncompliance and substance abuse 2. Acute respiratory distress secondary to decompensated cardiomyopathy with systolic dysfunction with EF of 20%: Most likely related to amphetamine abuse -Continue cardiac meds including diuretics -Continues to require oxygen, not stable for discharge 3. Type 2 diabetes -cont Metformin 4. History of CVA -Aspirin and statin 5. History of COPD: shortness of breath seems to be related to palpitation and her being anxious -will place on Supplemental oxygen, with as needed bronchodilators and steroid 6. History of methamphetamine abuse 7. Acute encephalopathy possibly secondary to delirium-improved PPx: Lovenox Problems: Subjective 24 Hr Interval Summary Constitutional: no complaints Exam/Review of Systems Vital Signs Vitals Vital Signs Date Time Temp Pulse Resp B/P Pulse Ox O2 Delivery O2 Flow Rate FiO2 11/23/16 12:20 96 11/23/16 12:18 98.2 19 108/61 98 Nasal Cannula 3.0 Intake and Output 11/22/16 11/22/16 11/23/16 15:00 23:00 07:00 Intake Total 480 ml 200 ml Balance 480 ml 200 ml Exam Constitutional: alert Respiratory: clear to auscultation Cardiovascular: regular rate and rhythm Gastrointestinal: soft, No distended Musculoskeletal: nl extremities to inspection Results Result Diagram: 11/23/16 1029 11/23/16 1029 Results 24 hrs Laboratory Tests Test 11/22/16 17:12 11/22/16 20:58 11/23/16 08:04 11/23/16 10:29 Bedside Glucose 142 170 199 White Blood Count 8.5 # Red Blood Count 4.13 L Hemoglobin 11.7 L Hematocrit 37.2 Mean Corpuscular Volume 90.1 Mean Corpuscular Hemoglobin 28.3 L Mean Corpuscular Hemoglobin Concent 31.5 L Red Cell Distribution Width 15.6 H Platelet Count 172 Mean Platelet Volume 10.4 Neutrophils % 78.9 H Lymphocytes % 9.3 L Monocytes % 9.7 Eosinophils % 1.3 Basophils % 0.4 Nucleated Red Blood Cells % 0.0 Neutrophils # (Manual) 6.7 Lymphocytes # 0.8 Monocytes # 0.8 Eosinophils # 0.1 Basophils # 0.0 Nucleated Red Blood Cells # 0.0 Sodium Level 137 Potassium Level 4.2 Chloride Level 97 Carbon Dioxide Level 32 H Anion Gap 12 # Blood Urea Nitrogen 24 H Creatinine 0.98 Glucose Level 180 Calcium Level 8.6 Magnesium Level 1.7 Test 11/23/16 11:54 Bedside Glucose 184 Medications Medications Current Medications Ondansetron HCl (Zofran Inj) 4 mg Q6H PRN IV NAUSEA AND/OR VOMITING; Start at 06:30 Nitroglycerin (Nitroglycerin (Sl Tab) 0.4 Mg) 1 tab Q5M PRN SL CHEST PAIN; Start 11/20/16 at 06:30 Acetaminophen (Tylenol Tab) 650 mg Q6H PRN PO PAIN LEVEL 1-3 OR FEVER; Start at 06:30 Morphine Sulfate (morphine) 2 mg Q4H PRN IV PAIN LEVEL 7-10; Start 11/20/16 at 06:30 Enoxaparin Sodium (Lovenox) 40 mg DAILY SC Last administered on 11/23/16 08:55 ; Admin Dose 40 MG; Start 11/20/16 at 09:00 Benazepril HCl (Lotensin) 20 mg DAILY PO Last administered on 11/23/16 08:56; Admin Dose 20 MG; Start 11/20/16 at 09:00 Levetiracetam (Keppra) 1,000 mg BID PO Last administered on 11/23/16 08:56; Admin Dose 1,000 MG; Start 11/20/16 at 09:00 Spironolactone (Aldactone) 25 mg DAILY PO Last administered on 11/23/16 08:56; Admin Dose 25 MG; Start 11/20/16 at 09:00 Linagliptin (Tradjenta) 5 mg DAILY PO Last administered on 11/23/16 08:56; Admin Dose 5 MG; Start 11/20/16 at 09:00 Miscellaneous Information 1 ea NOTE XX ; Start 11/20/16 at 08:00 Glucose (Glutose) 15 gm Q15M PRN PO DECREASED GLUCOSE; Start 11/20/16 at 08:00 Glucose (Glutose) 22.5 gm Q15M PRN PO DECREASED GLUCOSE; Start 11/20/16 at 08: 00 Dextrose (D50w Syringe) 25 ml Q15M PRN IV DECREASED GLUCOSE; Start 11/20/16 at 08:00 Dextrose (D50w Syringe) 50 ml Q15M PRN IV DECREASED GLUCOSE; Start 11/20/16 at 08:00 Glucagon (Glucagen) 1 mg Q15M PRN IM DECREASED GLUCOSE; Start 11/20/16 at 08:00 Glucose 15 gm 15 gm Q15M PRN BUCCAL DECREASED GLUCOSE; Start 11/20/16 at 08:00 Diltiazem HCl (Cardizem-D5W 125 Mg/125 ml Drip) 125 ml @ 5 mls/hr TITRATE PRN IV IV PROTOCOL; Start 11/20/16 at 17:30 Carvedilol (Coreg) 25 mg BID PO Last administered on 11/23/16 08:57; Admin Dose 25 MG; Start 11/20/16 at 21:00 Aspirin (Ecotrin) 325 mg DAILY PO Last administered on 11/23/16 08:56; Admin Dose 325 MG; Start 11/21/16 at 09:00 Atorvastatin Calcium (Lipitor) 20 mg HS PO Last administered on 11/22/16 20:59 ; Admin Dose 20 MG; Start 11/21/16 at 21:00 Lorazepam (Ativan) 1 mg Q6H PRN PO ANXIETY Last administered on 11/22/16 08:34 ; Admin Dose 1 MG; Start 11/21/16 at 16:30 Diagnostic Test (Pha) (Accu-Chek) 1 ea 02 XX Last administered on 11/23/16 02: 00; Admin Dose 1 EA; Start 11/22/16 at 02:00 Digoxin (Digoxin) 0.125 mg DAILY@13 PO Last administered on 11/23/16 12:44; Admin Dose 0.125 MG; Start 11/23/16 at 13:00 MAURILIO AMEZQUITA Nov 23, 2016 14:51
--- NOTE | 2016-11-23 18:40 | CONS ---
Date/Time of Note Date/Time of Note DATE: 11/23/16 TIME: 18:36 Assessment/Plan Assessment/Plan Chief Complaint/Hosp Course IMP: 1.CHF-systolic acute on chronic 2.cardiomyopathy-EF 20% by echo 05/11 3.HTN 4.abnl ecg-negative trop x 2 5. Hypercholesterolemia 6.H/O substance abuse 7. encephalopathy Recc: -Tele -serial ecg's -complete michi with final troponin -Continue asa/coreg/benazepril as tolerated -Continue aldactone and follow k closely -Change lasix to po as unable to get IV -Continue digoxin -Follow HR closely Problems: Consultation Date/Type/Reason Admit Date/Time Nov 20, 2016 at 05:47 Initial Consult Date 11/20/2016 Type of Consultation: cardiology Reason for Consultation CHF/AF Referring Provider: MAURILIO AMEZQUITA Exam/Review of Systems Vital Signs Vitals Vital Signs Date Time Temp Pulse Resp B/P Pulse Ox O2 Delivery O2 Flow Rate FiO2 11/23/16 16:45 79 11/23/16 15:44 98.8 20 100/71 97 11/23/16 12:18 Nasal Cannula 3.0 Intake and Output 11/22/16 11/22/16 11/23/16 14:59 22:59 06:59 Intake Total 480 ml 200 ml Balance 480 ml 200 ml Exam Review of Systems: CONSTITUTIONAL: No fevers, chills. PULMONARY: No sob CARDIOVASCULAR: No chest pain/palpitations GASTROINTESTINAL: No nausea/vomiting. GENITOURINARY: No hematuria/dysuria. MUSCULOSKELETAL: No myagias/arthalgias. PSYCHIATRIC: The patient denies depression. NEUROLOGIC: lethargic Constitutional: alert Psych: no complaints Head: normocephalic ENMT: mucosa pink and moist Neck: jvd (9-10 cm water), supple Respiratory: diminished breath sounds (at bases/B) Cardiovascular: regular rate and rhythm Gastrointestinal: non-tender, soft Musculoskeletal: muscle tone (normal) Extremities: edema (trace/B) Neurological: lethargic Results Result Diagram: 11/23/16 1029 11/23/16 1029 Results 24 hrs Laboratory Tests Test 11/22/16 20:58 11/23/16 08:04 11/23/16 10:29 11/23/16 11:54 Bedside Glucose 170 199 184 White Blood Count 8.5 # Red Blood Count 4.13 L Hemoglobin 11.7 L Hematocrit 37.2 Mean Corpuscular Volume 90.1 Mean Corpuscular Hemoglobin 28.3 L Mean Corpuscular Hemoglobin Concent 31.5 L Red Cell Distribution Width 15.6 H Platelet Count 172 Mean Platelet Volume 10.4 Neutrophils % 78.9 H Lymphocytes % 9.3 L Monocytes % 9.7 Eosinophils % 1.3 Basophils % 0.4 Nucleated Red Blood Cells % 0.0 Neutrophils # (Manual) 6.7 Lymphocytes # 0.8 Monocytes # 0.8 Eosinophils # 0.1 Basophils # 0.0 Nucleated Red Blood Cells # 0.0 Sodium Level 137 Potassium Level 4.2 Chloride Level 97 Carbon Dioxide Level 32 H Anion Gap 12 # Blood Urea Nitrogen 24 H Creatinine 0.98 Glucose Level 180 Calcium Level 8.6 Magnesium Level 1.7 Test 11/23/16 17:25 Bedside Glucose 116 Medications Medications Current Medications Ondansetron HCl (Zofran Inj) 4 mg Q6H PRN IV NAUSEA AND/OR VOMITING; Start at 06:30 Nitroglycerin (Nitroglycerin (Sl Tab) 0.4 Mg) 1 tab Q5M PRN SL CHEST PAIN; Start 11/20/16 at 06:30 Acetaminophen (Tylenol Tab) 650 mg Q6H PRN PO PAIN LEVEL 1-3 OR FEVER; Start at 06:30 Morphine Sulfate (morphine) 2 mg Q4H PRN IV PAIN LEVEL 7-10; Start 11/20/16 at 06:30 Enoxaparin Sodium (Lovenox) 40 mg DAILY SC Last administered on 11/23/16 08:55 ; Admin Dose 40 MG; Start 11/20/16 at 09:00 Benazepril HCl (Lotensin) 20 mg DAILY PO Last administered on 11/23/16 08:56; Admin Dose 20 MG; Start 11/20/16 at 09:00 Levetiracetam (Keppra) 1,000 mg BID PO Last administered on 11/23/16 08:56; Admin Dose 1,000 MG; Start 11/20/16 at 09:00 Spironolactone (Aldactone) 25 mg DAILY PO Last administered on 11/23/16 08:56; Admin Dose 25 MG; Start 11/20/16 at 09:00 Linagliptin (Tradjenta) 5 mg DAILY PO Last administered on 11/23/16 08:56; Admin Dose 5 MG; Start 11/20/16 at 09:00 Miscellaneous Information 1 ea NOTE XX ; Start 11/20/16 at 08:00 Glucose (Glutose) 15 gm Q15M PRN PO DECREASED GLUCOSE; Start 11/20/16 at 08:00 Glucose (Glutose) 22.5 gm Q15M PRN PO DECREASED GLUCOSE; Start 11/20/16 at 08: 00 Dextrose (D50w Syringe) 25 ml Q15M PRN IV DECREASED GLUCOSE; Start 11/20/16 at 08:00 Dextrose (D50w Syringe) 50 ml Q15M PRN IV DECREASED GLUCOSE; Start 11/20/16 at 08:00 Glucagon (Glucagen) 1 mg Q15M PRN IM DECREASED GLUCOSE; Start 11/20/16 at 08:00 Glucose 15 gm 15 gm Q15M PRN BUCCAL DECREASED GLUCOSE; Start 11/20/16 at 08:00 Diltiazem HCl (Cardizem-D5W 125 Mg/125 ml Drip) 125 ml @ 5 mls/hr TITRATE PRN IV IV PROTOCOL; Start 11/20/16 at 17:30 Carvedilol (Coreg) 25 mg BID PO Last administered on 11/23/16 08:57; Admin Dose 25 MG; Start 11/20/16 at 21:00 Aspirin (Ecotrin) 325 mg DAILY PO Last administered on 11/23/16 08:56; Admin Dose 325 MG; Start 11/21/16 at 09:00 Atorvastatin Calcium (Lipitor) 20 mg HS PO Last administered on 11/22/16 20:59 ; Admin Dose 20 MG; Start 11/21/16 at 21:00 Lorazepam (Ativan) 1 mg Q6H PRN PO ANXIETY Last administered on 11/22/16 08:34 ; Admin Dose 1 MG; Start 11/21/16 at 16:30 Diagnostic Test (Pha) (Accu-Chek) 1 ea 02 XX Last administered on 11/23/16 02: 00; Admin Dose 1 EA; Start 11/22/16 at 02:00 Digoxin (Digoxin) 0.125 mg DAILY@13 PO Last administered on 11/23/16 12:44; Admin Dose 0.125 MG; Start 11/23/16 at 13:00 DAJA CROSS Nov 23, 2016 18:40
[2016-11-23] MEDS: ATORVASTATIN 20 MG TAB PO SCH (20:41)
[2016-11-23] MEDS: FUROSEMIDE 40 MG TAB PO SCH (20:41)
[2016-11-24] VITALS (11 sets, daily range): BP systolic 72–138; BP diastolic 43–86; PULSE 79–97; RESP 18–20
[2016-11-24] MEDS: ACCU-CHEK XX SCH (01:51)
[2016-11-24] MEDS: FUROSEMIDE 40 MG TAB PO SCH ×2 (06:47→17:29)
[2016-11-24] MEDS: INSULIN ASPART [NOVOLOG] 3 ML PEN SC SCH ×4 (08:00→21:00)
[2016-11-24 08:20] LABS: CALCIUM 8.6 mg/dl (8.4-10.2); CREATININE 1.05 mg/dl (0.44-1.00); MAGNESIUM 1.6 mg/dl (1.7-2.5); POTASSIUM 4.7 mmol/L (3.5-5.1)
[2016-11-24] MEDS: BENAZEPRIL 20 MG TAB PO SCH (09:00)
[2016-11-24] MEDS: LINAGLIPTIN 5 MG TABLET PO SCH (09:14)
[2016-11-24] MEDS: LEVETIRACETAM 500 MG TAB PO SCH ×2 (09:14→21:51)
[2016-11-24] MEDS: SPIRONOLACTONE 25 MG TAB PO SCH (09:15)
[2016-11-24] MEDS: ASPIRIN (EC) 325 MG TAB PO SCH (09:15)
[2016-11-24] MEDS: metFORMIN 500 MG TAB PO SCH ×2 (09:18→17:28)
[2016-11-24] MEDS: ENOXAPARIN 40 MG/0.4 ML SYG SC SCH (09:22)
[2016-11-24] MEDS ORDERED: MAGNESIUM SULFATE 3 GM in SOD CHLORIDE 0.9% 100 ML IVPB ONE (12:00)
--- NOTE | 2016-11-24 12:54 | PN ---
Date/Time of Note Date/Time of Note DATE: 11/24/16 TIME: 12:53 Assessment/Plan VTE Prophylaxis VTE Prophylaxis Intervention: LMWH Lines/Catheters IV Catheter Type (from Nrs): Saline Lock Urinary Cath still in place: No Assessment/Plan Chief Complaint/Hosp Course 1. A-fib with RVR-still in A. fib but heart rate stable -Continue Coreg -Cardiology consultation appreciated, rec is for aspirin considering patient's history noncompliance and substance abuse 2. Acute respiratory distress secondary to decompensated cardiomyopathy with systolic dysfunction with EF of 20%: Most likely related to amphetamine abuse -Continue cardiac meds including diuretics -Now off oxygen 3. Type 2 diabetes -cont Metformin 4. History of CVA -Aspirin and statin 5. History of COPD: shortness of breath seems to be related to palpitation and her being anxious -will place on Supplemental oxygen, with as needed bronchodilators and steroid 6. History of methamphetamine abuse 7. Acute encephalopathy possibly secondary to delirium-patient continues to be delirious and confused and not safe for discharge as she lives alone at home PPx: Lovenox Problems: Subjective 24 Hr Interval Summary Constitutional: disoriented Exam/Review of Systems Vital Signs Vitals Vital Signs Date Time Temp Pulse Resp B/P Pulse Ox O2 Delivery O2 Flow Rate FiO2 11/24/16 12:15 79 11/24/16 11:35 98.2 20 80/49 94 11/23/16 20:30 Nasal Cannula 3.0 Intake and Output 11/23/16 11/23/16 11/24/16 15:00 23:00 07:00 Intake Total 960 ml Balance 960 ml Exam Constitutional: alert Psych: confusion Respiratory: clear to auscultation Cardiovascular: regular rate and rhythm Gastrointestinal: soft, No distended Musculoskeletal: nl extremities to inspection Results Result Diagram: 11/23/16 1029 11/24/16 0659 Results 24 hrs Laboratory Tests Test 11/23/16 17:25 11/23/16 20:16 11/24/16 06:59 11/24/16 09:13 Bedside Glucose 116 145 132 Sodium Level 134 L Potassium Level 4.7 Chloride Level 98 Carbon Dioxide Level 29 Anion Gap 12 Blood Urea Nitrogen 32 H Creatinine 1.05 H Glucose Level 128 # Calcium Level 8.6 Magnesium Level 1.6 L Test 11/24/16 12:36 Bedside Glucose 130 Medications Medications Current Medications Ondansetron HCl (Zofran Inj) 4 mg Q6H PRN IV NAUSEA AND/OR VOMITING; Start at 06:30 Nitroglycerin (Nitroglycerin (Sl Tab) 0.4 Mg) 1 tab Q5M PRN SL CHEST PAIN; Start 11/20/16 at 06:30 Acetaminophen (Tylenol Tab) 650 mg Q6H PRN PO PAIN LEVEL 1-3 OR FEVER; Start at 06:30 Morphine Sulfate (morphine) 2 mg Q4H PRN IV PAIN LEVEL 7-10; Start 11/20/16 at 06:30 Enoxaparin Sodium (Lovenox) 40 mg DAILY SC Last administered on 11/24/16 09:22 ; Admin Dose 40 MG; Start 11/20/16 at 09:00 Benazepril HCl (Lotensin) 20 mg DAILY PO Last administered on 11/23/16 08:56; Admin Dose 20 MG; Start 11/20/16 at 09:00 Levetiracetam (Keppra) 1,000 mg BID PO Last administered on 11/24/16 09:14; Admin Dose 1,000 MG; Start 11/20/16 at 09:00 Spironolactone (Aldactone) 25 mg DAILY PO Last administered on 11/24/16 09:15; Admin Dose 25 MG; Start 11/20/16 at 09:00 Linagliptin (Tradjenta) 5 mg DAILY PO Last administered on 11/24/16 09:14; Admin Dose 5 MG; Start 11/20/16 at 09:00 Miscellaneous Information 1 ea NOTE XX ; Start 11/20/16 at 08:00 Glucose (Glutose) 15 gm Q15M PRN PO DECREASED GLUCOSE; Start 11/20/16 at 08:00 Glucose (Glutose) 22.5 gm Q15M PRN PO DECREASED GLUCOSE; Start 11/20/16 at 08: 00 Dextrose (D50w Syringe) 25 ml Q15M PRN IV DECREASED GLUCOSE; Start 11/20/16 at 08:00 Dextrose (D50w Syringe) 50 ml Q15M PRN IV DECREASED GLUCOSE; Start 11/20/16 at 08:00 Glucagon (Glucagen) 1 mg Q15M PRN IM DECREASED GLUCOSE; Start 11/20/16 at 08:00 Glucose 15 gm 15 gm Q15M PRN BUCCAL DECREASED GLUCOSE; Start 11/20/16 at 08:00 Diltiazem HCl (Cardizem-D5W 125 Mg/125 ml Drip) 125 ml @ 5 mls/hr TITRATE PRN IV IV PROTOCOL; Start 11/20/16 at 17:30 Carvedilol (Coreg) 25 mg BID PO Last administered on 11/23/16 20:42; Admin Dose 25 MG; Start 11/20/16 at 21:00 Aspirin (Ecotrin) 325 mg DAILY PO Last administered on 11/24/16 09:15; Admin Dose 325 MG; Start 11/21/16 at 09:00 Atorvastatin Calcium (Lipitor) 20 mg HS PO Last administered on 11/23/16 20:41 ; Admin Dose 20 MG; Start 11/21/16 at 21:00 Lorazepam (Ativan) 1 mg Q6H PRN PO ANXIETY Last administered on 11/22/16 08:34 ; Admin Dose 1 MG; Start 11/21/16 at 16:30 Diagnostic Test (Pha) (Accu-Chek) 1 ea 02 XX Last administered on 11/23/16 02: 00; Admin Dose 1 EA; Start 11/22/16 at 02:00 Digoxin 0.125 mg 0.125 mg DAILY@13 PO Last administered on 11/23/16 12:44; Admin Dose 0.125 MG; Start 11/23/16 at 13:00 Magnesium Sulfate/ Sodium Chloride (Magnesium Sulfate/NS) 106 ml @ 35.333 mls/ hr ONCE ONCE IVPB ; Start 11/24/16 at 12:00; Stop 11/24/16 at 14:59 MAURILIO AMEZQUITA Nov 24, 2016 12:54
[2016-11-24] MEDS: DIGOXIN 0.125 MG TAB PO SCH (14:19)
[2016-11-24] MEDS: MAGNESIUM OXIDE 400 MG TAB PO SCH (21:51)
[2016-11-24] MEDS: ATORVASTATIN 20 MG TAB PO SCH (21:51)
[2016-11-25] VITALS (13 sets, daily range): BP systolic 89–146; BP diastolic 55–72; PULSE 67–97; RESP 16–22
[2016-11-25] MEDS: ACCU-CHEK XX SCH (02:01)
[2016-11-25] MEDS: FUROSEMIDE 40 MG TAB PO SCH ×2 (06:50→16:56)
[2016-11-25] MEDS: INSULIN ASPART [NOVOLOG] 3 ML PEN SC SCH ×4 (08:00→21:00)
[2016-11-25 08:02] LABS: CALCIUM 8.7 mg/dl (8.4-10.2); CREATININE 1.08 mg/dl (0.44-1.00); MAGNESIUM 1.8 mg/dl (1.7-2.5); POTASSIUM 4.8 mmol/L (3.5-5.1)
[2016-11-25] MEDS: metFORMIN 500 MG TAB PO SCH ×2 (08:06→16:55)
[2016-11-25] MEDS: ASPIRIN (EC) 325 MG TAB PO SCH (08:08)
[2016-11-25] MEDS: SPIRONOLACTONE 25 MG TAB PO SCH (08:08)
[2016-11-25] MEDS: LINAGLIPTIN 5 MG TABLET PO SCH (08:13)
[2016-11-25] MEDS: MAGNESIUM OXIDE 400 MG TAB PO SCH ×2 (08:13→21:26)
[2016-11-25] MEDS: BENAZEPRIL 20 MG TAB PO SCH (08:13)
[2016-11-25] MEDS: LEVETIRACETAM 500 MG TAB PO SCH ×2 (08:13→21:27)
[2016-11-25] MEDS: ENOXAPARIN 40 MG/0.4 ML SYG SC SCH (08:21)
[2016-11-25] MEDS: DIGOXIN 0.125 MG TAB PO SCH (16:10)
--- NOTE | 2016-11-25 18:41 | PN ---
Date/Time of Note Date/Time of Note DATE: 11/25/16 TIME: 18:40 Assessment/Plan VTE Prophylaxis VTE Prophylaxis Intervention: LMWH Lines/Catheters [facility] Sal[facility] Urinary Cath still in place: No Assessment/Plan Chief Complaint/Hosp Course 1. A-fib with RVR-still in A. fib but heart rate stable -Continue Coreg -Cardiology consultation appreciated, rec is for aspirin considering patient's history noncompliance and substance abuse 2. Acute respiratory distress secondary to decompensated cardiomyopathy with systolic dysfunction with EF of 20%: Most likely related to amphetamine abuse -Continue cardiac meds including diuretics -Now back on oxygen 3. Type 2 diabetes -cont Metformin 4. History of CVA -Aspirin and statin 5. History of COPD: shortness of breath seems to be related to palpitation and her being anxious -will place on Supplemental oxygen, with as needed bronchodilators 6. History of methamphetamine abuse 7. Acute encephalopathy possibly secondary to delirium-patient continues to be delirious and confused and not safe for discharge as she lives alone at home -Patient's mentation is better today but still does not appear safe for discharge at this time PPx: Lovenox Problems: Subjective 24 Hr Interval Summary Constitutional: no complaints Exam/Review of Systems Vital Signs Vitals Vital Signs Date Time Temp Pulse Resp B/P Pulse Ox O2 Delivery O2 Flow Rate FiO2 11/25/16 17:14 89 11/25/16 11:49 97.9 18 89/63 92 11/25/16 08:10 Nasal Cannula 3.0 Intake and Output 11/24/16 11/24/16 11/25/16 15:00 23:00 07:00 Intake Total 720 ml 480 ml Balance 720 ml 480 ml Exam Psych: confusion Respiratory: clear to auscultation Cardiovascular: regular rate and rhythm Gastrointestinal: soft, No distended Musculoskeletal: nl extremities to inspection Results Result Diagram: 11/23/16 1029 11/25/16 0700 Results 24 hrs Laboratory Tests Test 11/24/16 21:35 11/25/16 07:00 11/25/16 08:05 11/25/16 12:07 Bedside Glucose 162 98 131 Sodium Level 135 Potassium Level 4.8 Chloride Level 97 Carbon Dioxide Level 30 Anion Gap 13 Blood Urea Nitrogen 33 H Creatinine 1.08 H Glucose Level 91 Calcium Level 8.7 Magnesium Level 1.8 Test 11/25/16 16:53 Bedside Glucose 123 Medications Medications Current Medications Ondansetron HCl (Zofran Inj) 4 mg Q6H PRN IV NAUSEA AND/OR VOMITING; Start at 06:30 Nitroglycerin (Nitroglycerin (Sl Tab) 0.4 Mg) 1 tab Q5M PRN SL CHEST PAIN; Start 11/20/16 at 06:30 Acetaminophen (Tylenol Tab) 650 mg Q6H PRN PO PAIN LEVEL 1-3 OR FEVER; Start at 06:30 Morphine Sulfate (morphine) 2 mg Q4H PRN IV PAIN LEVEL 7-10; Start 11/20/16 at 06:30 Enoxaparin Sodium (Lovenox) 40 mg DAILY SC Last administered on 11/25/16 08:21 ; Admin Dose 40 MG; Start 11/20/16 at 09:00 Benazepril HCl (Lotensin) 20 mg DAILY PO Last administered on 11/23/16 08:56; Admin Dose 20 MG; Start 11/20/16 at 09:00 Levetiracetam (Keppra) 1,000 mg BID PO Last administered on 11/25/16 08:13; Admin Dose 1,000 MG; Start 11/20/16 at 09:00 Spironolactone (Aldactone) 25 mg DAILY PO Last administered on 11/25/16 08:08; Admin Dose 25 MG; Start 11/20/16 at 09:00 Linagliptin (Tradjenta) 5 mg DAILY PO Last administered on 11/25/16 08:13; Admin Dose 5 MG; Start 11/20/16 at 09:00 Miscellaneous Information 1 ea NOTE XX ; Start 11/20/16 at 08:00 Glucose (Glutose) 15 gm Q15M PRN PO DECREASED GLUCOSE; Start 11/20/16 at 08:00 Glucose (Glutose) 22.5 gm Q15M PRN PO DECREASED GLUCOSE; Start 11/20/16 at 08: 00 Dextrose (D50w Syringe) 25 ml Q15M PRN IV DECREASED GLUCOSE; Start 11/20/16 at 08:00 Dextrose (D50w Syringe) 50 ml Q15M PRN IV DECREASED GLUCOSE; Start 11/20/16 at 08:00 Glucagon (Glucagen) 1 mg Q15M PRN IM DECREASED GLUCOSE; Start 11/20/16 at 08:00 Glucose 15 gm 15 gm Q15M PRN BUCCAL DECREASED GLUCOSE; Start 11/20/16 at 08:00 Diltiazem HCl (Cardizem-D5W 125 Mg/125 ml Drip) 125 ml @ 5 mls/hr TITRATE PRN IV IV PROTOCOL; Start 11/20/16 at 17:30 Carvedilol (Coreg) 25 mg BID PO Last administered on 11/24/16 21:51; Admin Dose 25 MG; Start 11/20/16 at 21:00 Aspirin (Ecotrin) 325 mg DAILY PO Last administered on 11/25/16 08:08; Admin Dose 325 MG; Start 11/21/16 at 09:00 Atorvastatin Calcium (Lipitor) 20 mg HS PO Last administered on 11/24/16 21:51 ; Admin Dose 20 MG; Start 11/21/16 at 21:00 Lorazepam (Ativan) 1 mg Q6H PRN PO ANXIETY Last administered on 11/22/16 08:34 ; Admin Dose 1 MG; Start 11/21/16 at 16:30 Diagnostic Test (Pha) (Accu-Chek) 1 ea 02 XX Last administered on 11/23/16 02: 00; Admin Dose 1 EA; Start 11/22/16 at 02:00 Digoxin (Digoxin) 0.125 mg DAILY@13 PO Last administered on 11/25/16 16:10; Admin Dose 0.125 MG; Start 11/23/16 at 13:00 Magnesium Oxide (Mag-Ox 400) 400 mg BID PO Last administered on 11/25/16 08:13 ; Admin Dose 400 MG; Start 11/24/16 at 21:00 MAURILIO AMEZQUITA Nov 25, 2016 18:41
[2016-11-25] MEDS: ATORVASTATIN 20 MG TAB PO SCH (21:27)
[2016-11-26] VITALS (13 sets, daily range): BP systolic 96–183; BP diastolic 50–70; PULSE 78–113; RESP 18–22
[2016-11-26] MEDS: ACCU-CHEK XX SCH (02:00)
[2016-11-26] MEDS: FUROSEMIDE 40 MG TAB PO SCH ×2 (06:00→17:55)
[2016-11-26] MEDS: metFORMIN 500 MG TAB PO SCH ×2 (08:22→17:55)
[2016-11-26] MEDS: ENOXAPARIN 40 MG/0.4 ML SYG SC SCH (08:34)
[2016-11-26] MEDS: INSULIN ASPART [NOVOLOG] 3 ML PEN SC SCH ×4 (08:35→21:00)
[2016-11-26] MEDS: SPIRONOLACTONE 25 MG TAB PO SCH (08:37)
[2016-11-26] MEDS: ASPIRIN (EC) 325 MG TAB PO SCH (08:38)
[2016-11-26] MEDS: MAGNESIUM OXIDE 400 MG TAB PO SCH ×2 (08:38→21:09)
[2016-11-26] MEDS: LEVETIRACETAM 500 MG TAB PO SCH ×2 (08:38→21:09)
[2016-11-26] MEDS: LINAGLIPTIN 5 MG TABLET PO SCH (08:38)
[2016-11-26] MEDS: BENAZEPRIL 20 MG TAB PO SCH (08:49)
[2016-11-26] MEDS: morphine 2 MG INJ IV PRN ×3 (09:18→21:15)
[2016-11-26] MEDS: HYDROCODONE/APAP (5/325) TAB PO PRN ×3 (10:45→11:55)
[2016-11-26] MEDS: DIGOXIN 0.125 MG TAB PO SCH (12:28)
[2016-11-26] MEDS ORDERED: FUROSEMIDE 40 MG TAB PO ONE (12:30)
[2016-11-26 16:10] LABS: BASOPHILS % 0.4 % (0.0-2.0); EOSINOPHILS # 0.1 10^3/ul (0.0-0.5); EOSINOPHILS % 2.3 % (0.0-7.0); HEMATOCRIT 33.6 % (37.0-47.0); HEMOGLOBIN 10.8 g/dl (12.0-16.0); LYMPHOCYTES # 0.9 10^3/ul (0.8-2.9); LYMPHOCYTES % 17.4 % (15.0-51.0); MEAN CORPUSCULAR HGB CONC 32.1 g/dl (32.0-37.0); MEAN CORPUSCULAR VOLUME 90.3 fl (82.0-101.0); MEAN PLATELET VOLUME 11.1 fl (7.4-10.4); MONOCYTE # 0.5 10^3/ul (0.3-0.9); MONOCYTES % 9.8 % (0.0-11.0); NEUTROPHILS % 69.7 % (39.0-77.0); PLATELET COUNT 147 10^3/UL (140-415); RED BLOOD COUNT 3.72 10^6/ul (4.20-5.40); RED CELL DISTRIBUTION WIDTH 15.3 % (11.5-14.5); WHITE BLOOD COUNT 5.3 10^3/ul (4.8-10.8)
[2016-11-26 16:26] LABS: CREATININE 0.88 mg/dl (0.44-1.00); PHOSPHORUS 4.4 mg/dl (2.5-4.9)
--- NOTE | 2016-11-26 20:22 | PN ---
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, prior CVA with seizures presneting with acute on chronic CHF exacerbation and A Fib with RVR Acute on chronic systolic CHF: - Still overloaded - Increase lasix to 80 PO BID from 40 BID - Continue SLIM/BB, galen A FIb w RVR; - Still tachy - Max BB on board - Digoxin on board - Monitor rates with diuresis - Defer to cards, amio or dilitazem Problems: Subjective 24 Hr Interval Summary Free Text/Dictation Feeling a bit better she says But still with orthopnea HR still rapid Exam/Review of Systems Vital Signs Vitals Vital Signs Date Time Temp Pulse Resp B/P Pulse Ox O2 Delivery O2 Flow Rate FiO2 11/26/16 16:21 90 11/26/16 16:00 98.6 20 96/50 98 Nasal Cannula 3.0 Intake and Output 11/25/16 11/25/16 11/26/16 15:00 23:00 07:00 Intake Total 600 ml 600 ml Balance 600 ml 600 ml Exam Comfortable, nonlabored breathing ++++ JVD Irreg irreg, tachy No peripheral edema Results Result Diagram: 11/26/16 1458 11/26/16 1502 Results 24 hrs Laboratory Tests Test 11/25/16 21:02 11/26/16 08:21 11/26/16 11:54 11/26/16 14:58 Bedside Glucose 169 185 140 White Blood Count 5.3 # Red Blood Count 3.72 L Hemoglobin 10.8 L Hematocrit 33.6 L Mean Corpuscular Volume 90.3 Mean Corpuscular Hemoglobin 29.0 Mean Corpuscular Hemoglobin Concent 32.1 Red Cell Distribution Width 15.3 H Platelet Count 147 Mean Platelet Volume 11.1 H Neutrophils % 69.7 Lymphocytes % 17.4 Monocytes % 9.8 Eosinophils % 2.3 Basophils % 0.4 Nucleated Red Blood Cells % 0.0 Neutrophils # (Manual) 3.7 Lymphocytes # 0.9 Monocytes # 0.5 Eosinophils # 0.1 Basophils # 0.0 Nucleated Red Blood Cells # 0.0 Test 11/26/16 15:02 11/26/16 17:31 Sodium Level 134 L Potassium Level 5.0 Chloride Level 97 Carbon Dioxide Level 28 Anion Gap 14 Blood Urea Nitrogen 27 H Creatinine 0.88 Glucose Level 124 Calcium Level 9.0 Phosphorus Level 4.4 Magnesium Level 2.0 Bedside Glucose 99 Medications Medications Current Medications Ondansetron HCl (Zofran Inj) 4 mg Q6H PRN IV NAUSEA AND/OR VOMITING; Start at 06:30 Nitroglycerin (Nitroglycerin (Sl Tab) 0.4 Mg) 1 tab Q5M PRN SL CHEST PAIN; Start 11/20/16 at 06:30 Acetaminophen (Tylenol Tab) 650 mg Q6H PRN PO PAIN LEVEL 1-3 OR FEVER Last administered on 11/26/16 12:29; Admin Dose 650 MG; Start 11/20/16 at 06:30 Morphine Sulfate (morphine) 2 mg Q4H PRN IV PAIN LEVEL 7-10 Last administered on 11/26/16 15:55; Admin Dose 2 MG; Start 11/20/16 at 06:30 Enoxaparin Sodium (Lovenox) 40 mg DAILY SC Last administered on 11/26/16 08:34 ; Admin Dose 40 MG; Start 11/20/16 at 09:00 Benazepril HCl (Lotensin) 20 mg DAILY PO Last administered on 11/26/16 08:49; Admin Dose 20 MG; Start 11/20/16 at 09:00 Levetiracetam (Keppra) 1,000 mg BID PO Last administered on 11/26/16 08:38; Admin Dose 1,000 MG; Start 11/20/16 at 09:00 Spironolactone (Aldactone) 25 mg DAILY PO Last administered on 11/26/16 08:37; Admin Dose 25 MG; Start 11/20/16 at 09:00 Linagliptin (Tradjenta) 5 mg DAILY PO Last administered on 11/26/16 08:38; Admin Dose 5 MG; Start 11/20/16 at 09:00 Miscellaneous Information 1 ea NOTE XX ; Start 11/20/16 at 08:00 Glucose (Glutose) 15 gm Q15M PRN PO DECREASED GLUCOSE; Start 11/20/16 at 08:00 Glucose (Glutose) 22.5 gm Q15M PRN PO DECREASED GLUCOSE; Start 11/20/16 at 08: 00 Dextrose (D50w Syringe) 25 ml Q15M PRN IV DECREASED GLUCOSE; Start 11/20/16 at 08:00 Dextrose (D50w Syringe) 50 ml Q15M PRN IV DECREASED GLUCOSE; Start 11/20/16 at 08:00 Glucagon (Glucagen) 1 mg Q15M PRN IM DECREASED GLUCOSE; Start 11/20/16 at 08:00 Glucose 15 gm 15 gm Q15M PRN BUCCAL DECREASED GLUCOSE; Start 11/20/16 at 08:00 Diltiazem HCl (Cardizem-D5W 125 Mg/125 ml Drip) 125 ml @ 5 mls/hr TITRATE PRN IV IV PROTOCOL; Start 11/20/16 at 17:30 Carvedilol (Coreg) 25 mg BID PO Last administered on 11/26/16 08:49; Admin Dose 25 MG; Start 11/20/16 at 21:00 Aspirin (Ecotrin) 325 mg DAILY PO Last administered on 11/26/16 08:38; Admin Dose 325 MG; Start 11/21/16 at 09:00 Atorvastatin Calcium (Lipitor) 20 mg HS PO Last administered on 11/25/16 21:27 ; Admin Dose 20 MG; Start 11/21/16 at 21:00 Lorazepam (Ativan) 1 mg Q6H PRN PO ANXIETY Last administered on 11/22/16 08:34 ; Admin Dose 1 MG; Start 11/21/16 at 16:30 Diagnostic Test (Pha) (Accu-Chek) 1 ea 02 XX Last administered on 11/23/16 02: 00; Admin Dose 1 EA; Start 11/22/16 at 02:00 Digoxin (Digoxin) 0.125 mg DAILY@13 PO Last administered on 11/26/16 12:28; Admin Dose 0.125 MG; Start 11/23/16 at 13:00 Magnesium Oxide (Mag-Ox 400) 400 mg BID PO Last administered on 11/26/16 08:38 ; Admin Dose 400 MG; Start 11/24/16 at 21:00 Acetaminophen/ Hydrocodone Bitart ([place] (5/325)) 1 tab Q3H PRN PO PAIN Last administered on 11/26/16 10:45; Admin Dose 1 TAB; Start 11/26/16 at 10:00 CORNELIO MONTERO MD Nov 26, 2016 20:22
[2016-11-26] MEDS: ATORVASTATIN 20 MG TAB PO SCH (21:09)
[2016-11-27] VITALS (9 sets, daily range): BP systolic 91–109; BP diastolic 50–82; PULSE 60–92; RESP 17–20
[2016-11-27] MEDS: ACCU-CHEK XX SCH (02:17)
[2016-11-27] MEDS: LORAZEPAM 1 MG TAB PO PRN (03:03)
[2016-11-27] MEDS: morphine 2 MG INJ IV PRN ×3 (03:06→14:33)
[2016-11-27] MEDS: FUROSEMIDE 40 MG TAB PO SCH ×2 (06:00→17:29)
[2016-11-27] MEDS: metFORMIN 500 MG TAB PO SCH ×2 (07:21→17:30)
[2016-11-27] MEDS: INSULIN ASPART [NOVOLOG] 3 ML PEN SC SCH ×3 (07:22→17:30)
[2016-11-27 07:35] LABS: BASOPHILS % 0.4 % (0.0-2.0); EOSINOPHILS # 0.2 10^3/ul (0.0-0.5); EOSINOPHILS % 3.8 % (0.0-7.0); HEMATOCRIT 35.3 % (37.0-47.0); HEMOGLOBIN 10.5 g/dl (12.0-16.0); LYMPHOCYTES # 0.7 10^3/ul (0.8-2.9); LYMPHOCYTES % 14.2 % (15.0-51.0); MEAN CORPUSCULAR HEMOGLOBIN 27.3 pg (29.0-33.0); MEAN CORPUSCULAR HGB CONC 29.7 g/dl (32.0-37.0); MEAN CORPUSCULAR VOLUME 91.9 fl (82.0-101.0); MEAN PLATELET VOLUME 11.2 fl (7.4-10.4); MONOCYTE # 0.5 10^3/ul (0.3-0.9); MONOCYTES % 10.5 % (0.0-11.0); NEUTROPHILS % 70.7 % (39.0-77.0); PLATELET COUNT 145 10^3/UL (140-415); RED BLOOD COUNT 3.84 10^6/ul (4.20-5.40); RED CELL DISTRIBUTION WIDTH 15.7 % (11.5-14.5); WHITE BLOOD COUNT 5.1 10^3/ul (4.8-10.8)
[2016-11-27] MEDS: SPIRONOLACTONE 25 MG TAB PO SCH (08:16)
[2016-11-27] MEDS: ASPIRIN (EC) 325 MG TAB PO SCH (08:16)
[2016-11-27 08:17] LABS: ALBUMIN 3.4 g/dl (3.3-4.9); ALBUMIN/GLOBULIN RATIO 1.09; BILIRUBIN,INDIRECT 0.2 mg/dl (0-1.1); BILIRUBIN,TOTAL 0.2 mg/dl (0.2-1.3); CREATININE 0.97 mg/dl (0.44-1.00); POTASSIUM 5.1 mmol/L (3.5-5.1); TOTAL PROTEIN 6.5 g/dl (6.1-8.1)
[2016-11-27] MEDS: MAGNESIUM OXIDE 400 MG TAB PO SCH (08:17)
[2016-11-27] MEDS: LEVETIRACETAM 500 MG TAB PO SCH (08:17)
[2016-11-27] MEDS: BENAZEPRIL 20 MG TAB PO SCH (08:17)
[2016-11-27] MEDS: ENOXAPARIN 40 MG/0.4 ML SYG SC SCH (08:18)
[2016-11-27] MEDS: LINAGLIPTIN 5 MG TABLET PO SCH (08:18)
[2016-11-27] MEDS: DIGOXIN 0.125 MG TAB PO SCH (13:09)
[2016-11-27] MEDS ORDERED: FURO-109 PO (14:25)
[2016-11-27] MEDS ORDERED: RIVA20TA PO (14:25)
--- NOTE | 2016-11-27 14:28 | PDOCDIS ---
Discharge Instructions CONDITION Patient Condition: Good HOME CARE INSTRUCTIONS: Diet Instructions: Reduced SodiumSpecial Diet: Carbs controlled diet FOLLOW UP/APPOINTMENTS Follow-up Plan It is crucial that you take your medications every day for your congestive heart failure Your lasix dose has been increased from once daily to twice daily. This medication is a diuretic that will cause you to excrete more urine and thus decongest your lungs. It is possible to become overly dehydrated as a result, so it is important for you to see your doctor within the next week or so to examine you and do blood work to monitor your electrolytes. We have also started a blood thinner called Xarelto for your atrial fibrillation to prevent strokes. This medication will cause you to bleed more easily so it is important to take precautions to avoid injury Return to the hosptial if you have any shortness of breath or other concerning symptoms CORNELIO MONTERO MD Nov 27, 2016 14:28
--- NOTE | 2016-11-27 16:45 | DS ---
Date/Time of Note Date/Time of Note DATE: 11/27/16 TIME: 16:43 Discharge Summary Admission/Discharge Info Admit Date/Time Nov 20, 2016 at 05:47 Discharge Date/Time Patient Condition: Good Hx of Present Illness This is a 55-year-old female with past medical history of atrial fibrillation, CVA, cardiomyopathy with systolic function of 20%, history of V-tach, COPD, pulmonary hypertension, diabetes mellitus type 2, methamphetamine abuse who presented to the emergency department complaining of shortness of breath and palpitations. She said she was sitting on a couch watching TV when she started experiencing acute onset palpitations and shortness of breath. Denied chest pain. She also has a history of methamphetamine abuse but stated that her last use was in March of this year. Currently patient does appear anxious with mild shortness of breath. She is however able to speak in full sentences. When she presented to the ER, she was found to be in rapid A-fib with a heart rate as high as almost 140. . Hospital Course Lucia was diagnosed with both acute sysotlic CHF exacerbation and A FIb w RVR. She was given diuresis with lasix, and in a few days retunred to euvolemia and was breathing normally. Her atrial fibrillation was initially controlled with diltiazem drip and digoxin. She remained quite tahcycardic until she achieved euvolemia, when rates were normalized, still in A Fib. Given her high [id number] score w h/o stroke previously, she was started on Xarelto for stroke prevention. She was counseled extensievly on the need for lifelong therapy for her cardiac condiation and importance of adherence to therapy. Also very strongly encouraged to visit her PMD within the next week for diuretics titration and blood work. Home Meds Active Scripts Rivaroxaban* (Xarelto*) 20 Mg Tablet, 20 MG PO WITH DINNER for 30 Days, #30 TAB 2 Refills Prov:CORNELIO MONTERO MD 11/27/16 Furosemide* (Lasix*) 40 Mg Tablet, 40 MG PO BID for 20 Days, #40 TAB Prov:CORNELIO MONTERO MD 11/27/16 Spironolactone* (Aldactone*) 25 Mg Tablet, 25 MG PO DAILY for 30 Days, TAB Prov:LENIN AGGARWAL MD 3/2/17 Reported Medications Sitagliptin* (Januvia*) 100 Mg Tablet, 100 MG PO DAILY, #30 TAB 11/20/16 Levetiracetam* (Keppra*) 500 Mg Tablet, 1000 MG PO BID, TAB 05/21/16 Carvedilol* (Carvedilol*) 12.5 Mg Tablet, 12.5 MG PO BID, #60 TAB 05/21/16 Metformin Hcl* (Metformin Hcl*) 1,000 Mg Tablet, 1000 MG PO WITH BREAKFAST DINNE , #60 TAB 05/21/16 Benazepril Hcl* (Benazepril Hcl*) 20 Mg Tablet, 20 MG PO DAILY, #30 TAB 05/21/16 Discontinued Reported Medications Furosemide* (Furosemide*) 40 Mg Tablet, 40 MG PO DAILY, TAB 05/21/16 Primary Care Provider Kvng Baldwin MD Pending Labs Laboratory Tests Test 11/26/16 17:31 11/26/16 21:01 11/27/16 06:39 11/27/16 07:21 Bedside Glucose 99mg/dL (70-220) 140mg/dL (70-220) 135mg/dL (70-220) White Blood Count 5.110^3/ul (4.8-10.8) Red Blood Count 3.8410^6/ul (4.20-5.40) Hemoglobin 10.5g/dl (12.0-16.0) Hematocrit 35.3% (37.0-47.0) Mean Corpuscular Volume 91.9fl (82.0-101.0) Mean Corpuscular Hemoglobin 27.3pg (29.0-33.0) Mean Corpuscular Hemoglobin Concent 29.7g/dl (32.0-37.0) Red Cell Distribution Width 15.7% (11.5-14.5) Platelet Count 13917^3/UL (140-415) Mean Platelet Volume 11.2fl (7.4-10.4) Neutrophils % 70.7% (39.0-77.0) Lymphocytes % 14.2% (15.0-51.0) Monocytes % 10.5% (0.0-11.0) Eosinophils % 3.8% (0.0-7.0) Basophils % 0.4% (0.0-2.0) Nucleated Red Blood Cells % 0.0/100WBC (0.0-0.0) Neutrophils # (Manual) 3.610^3/ul (1.7-7.5) Lymphocytes # 0.710^3/ul (0.8-2.9) Monocytes # 0.510^3/ul (0.3-0.9) Eosinophils # 0.210^3/ul (0.0-0.5) Basophils # 0.010^3/ul (0.0-0.1) Nucleated Red Blood Cells # 0.010^3/ul (0.0-0.0) Sodium Level 134mmol/L (135-144) Potassium Level 5.1mmol/L (3.5-5.1) Chloride Level 94mmol/L (97-110) Carbon Dioxide Level 31mmol/L (21-31) Anion Gap 14 (8-16) Blood Urea Nitrogen 34mg/dl (7-20) Creatinine 0.97mg/dl (0.44-1.00) Glucose Level 102mg/dl (70-220) Calcium Level 9.0mg/dl (8.4-10.2) Total Bilirubin 0.2mg/dl (0.2-1.3) Direct Bilirubin 0.00mg/dl (0.00-0.20) Indirect Bilirubin 0.2mg/dl (0-1.1) Aspartate Amino Transf (AST/SGOT) 25IU/L (15-46) Alanine Aminotransferase (ALT/SGPT) 33IU/L (13-69) Alkaline Phosphatase 134IU/L (42-121) Total Protein 6.5g/dl (6.1-8.1) Albumin 3.4g/dl (3.3-4.9) Globulin 3.10g/dl (1.3-3.2) Albumin/Globulin Ratio 1.09 Test 11/27/16 13:01 Bedside Glucose 137mg/dL (70-220) CORNELIO MONTERO MD Nov 27, 2016 16:45
[2016-11-27] MEDS ORDERED: RIVAROXABAN 20 MG TABLET PO SCH (18:05)
== END 2016-11-27 18:15 | disposition home or self-care (01) | DRG 308 ==
LOC: E/R 03:47 → MS4 05:47
PROVIDERS: ADMIT Internal Medicine; ATTEND Internal Medicine
DX: I48.91 Unspecified atrial fibrillation (principal); I50.23 Acute on chronic systolic (congestive) heart failure; G93.40 Encephalopathy, unspecified; I42.9 Cardiomyopathy, unspecified; E11.8 Type 2 diabetes mellitus with unspecified complications; Z79.01 Long term (current) use of anticoagulants; J44.9 Chronic obstructive pulmonary disease, unspecified; I11.0 Hypertensive heart disease with heart failure; Z86.73 Personal history of transient ischemic attack (TIA), and cerebral infarction without residual deficits; E03.9 Hypothyroidism, unspecified; Z86.011 Personal history of benign neoplasm of the brain; Z87.891 Personal history of nicotine dependence; E78.5 Hyperlipidemia, unspecified; Z91.14 Patient's other noncompliance with medication regimen; F15.10 Other stimulant abuse, uncomplicated; I27.2 Other secondary pulmonary hypertension; E78.00 Pure hypercholesterolemia, unspecified; R06.00 Dyspnea, unspecified; Z60.2 Problems related to living alone
CPT/HCPCS: 36600; 71010; 80048; 80053; 80061; 82803; 82962; 83036; 83735; 83880; 84100; 84484; 85025; 85610; 85730; 93005; 96374; J1650; J1815; J1940; J2270; J3475; J7030; J7040

== ENCOUNTER 2017-01-10 20:26 | Inpatient (IN) | payer OTHER ==
[~2017-01-10] VITALS: Ht 165.1 cm; Wt 103.3 kg
[~2017-01-10 20:26] MED LIST changes: +ETOMIDATE 20 MG INJ ONE; -FURO40TA4 PO; +RIVA20TA PO; +SITA100T8 PO
[2017-01-10] MEDS ORDERED: ASPIRIN 325 MG TAB PO STA (20:30)
[2017-01-10] MEDS ORDERED: SOD CHLORIDE 0.9% 500 ML IV STA (20:30)
[2017-01-10] MEDS ORDERED: DILTIAZEM 25 MG INJ IV ONE (20:30)
[2017-01-10 20:57] LABS: ABNORMAL IP MESSAGE 1; BASOPHILS % 0.2 % (0.0-2.0); EOSINOPHILS # 0.2 10^3/ul (0.0-0.5); EOSINOPHILS % 3.7 % (0.0-7.0); HEMATOCRIT 36.5 % (37.0-47.0); HEMOGLOBIN 11.3 g/dl (12.0-16.0); LYMPHOCYTES # 0.6 10^3/ul (0.8-2.9); LYMPHOCYTES % 13.7 % (15.0-51.0); MEAN CORPUSCULAR HEMOGLOBIN 27.8 pg (29.0-33.0); MEAN CORPUSCULAR VOLUME 89.7 fl (82.0-101.0); MEAN PLATELET VOLUME 10.1 fl (7.4-10.4); MONOCYTE # 0.4 10^3/ul (0.3-0.9); NEUTROPHILS % 73.4 % (39.0-77.0); NUCLEATED RED BLOOD CELLS% 0.5 /100WBC (0.0-0.0); PLATELET COUNT 199 10^3/UL (140-415); RED BLOOD COUNT 4.07 10^6/ul (4.20-5.40); RED CELL DISTRIBUTION WIDTH 19.8 % (11.5-14.5); WHITE BLOOD COUNT 4.1 10^3/ul (4.8-10.8)
--- NOTE | 2017-01-10 20:59 | RADRPT ---
PROCEDURE: Chest x-ray CLINICAL INDICATION: Chest pain TECHNIQUE: Chest single view COMPARISON: 11/20/2016 FINDINGS: There is stable moderate cardiomegaly and mild interstitial vascular congestion. The lungs are david r. The costophrenic angles are sharp. The visualized bony thorax is unremarkable. IMPRESSION: Cardiomegaly with mild interstitial vascular congestion RPTAT: HH .London Jesus MD, Date Time Electronically viewed and signed by .London Jesus MD, MD on 01/10/2017 20:59 .W/
[2017-01-10 21:04] LABS: POSITIVE DIFF @See below
[2017-01-10 21:15] LABS: ALBUMIN 3.9 g/dl (3.3-4.9); ALBUMIN/GLOBULIN RATIO 1.25; BILIRUBIN,INDIRECT 1.7 mg/dl (0-1.1); BILIRUBIN,TOTAL 1.7 mg/dl (0.2-1.3); CALCIUM 8.9 mg/dl (8.4-10.2); CREATININE 0.91 mg/dl (0.44-1.00); POTASSIUM 4.8 mmol/L (3.5-5.1)
[2017-01-10 21:26] LABS: TROPONIN-I 0.033 ng/ml (0.00-0.12)
[2017-01-10] MEDS ORDERED: DILTIAZEM-D5W 125MG/125ML DRIP 125 ML IV SCH (21:30)
[2017-01-10] MEDS ORDERED: METOPROLOL 5 MG INJ IV ONE (21:30)
[2017-01-10] MEDS ORDERED: ASPI-664 PO (21:48)
--- NOTE | 2017-01-10 22:52 | ERD ---
ER Documentation Chief Complaint Chief Complaint sob worse than normal, rapid afib h/o afib, no pain HPI This 56-year-old female is brought in respiratory extremis for shortness of breath with A. fib with RVR noted by paramedics. She does not have any chest pain this is felt very short of breath for the last couple of days getting worse today. She has a history of A. fib but is not sure what medication she is taking. Denies recent fever chills or trauma. ROS All systems reviewed and are negative except as per history of present illness. Medications Home Meds Active Scripts Furosemide* (Lasix*) 40 Mg Tablet, 40 MG PO BID for 20 Days, #40 TAB Prov:CORNELIO MONTERO MD 11/27/16 Reported Medications Aspirin* (Aspirin* EC) 81 Mg Tablet.dr, 81 MG PO DAILY, TAB 01/10/17 Sitagliptin* (Januvia*) 100 Mg Tablet, 100 MG PO DAILY, #30 TAB 11/20/16 Carvedilol* (Carvedilol*) 12.5 Mg Tablet, 12.5 MG PO BID, #60 TAB 05/21/16 Metformin Hcl* (Metformin Hcl*) 1,000 Mg Tablet, 1000 MG PO WITH BREAKFAST DINNE , #60 TAB 05/21/16 Benazepril Hcl* (Benazepril Hcl*) 20 Mg Tablet, 20 MG PO DAILY, #30 TAB 05/21/16 Discontinued Reported Medications Levetiracetam* (Keppra*) 500 Mg Tablet, 1000 MG PO BID, TAB 05/21/16 Discontinued Scripts Rivaroxaban* (Xarelto*) 20 Mg Tablet, 20 MG PO WITH DINNER for 30 Days, #30 TAB 2 Refills Prov:CORNELIO MONTERO MD 11/27/16 Spironolactone* (Aldactone*) 25 Mg Tablet, 25 MG PO DAILY for 30 Days, TAB Prov:LENIN AGGARWAL MD 05/24/16 Allergies Allergies: Coded Allergies: No Known Allergy (Unverified , 01/10/17) PMhx/Soc History of Surgery: Yes (Tumor removal (2015)) Anesthesia Reaction: No Hx Neurological Disorder: Yes (Hx of CVA, tumor removal) Hx Respiratory Disorders: Yes (COPD) Hx Cardiac Disorders: Yes (CHF) Hx Psychiatric Problems: No Hx Miscellaneous Medical Probl: No Hx Alcohol Use: No Hx Substance Use: Yes (Methamphetamines) Hx Tobacco Use: Yes (x33 yrs ago) Smoking Status: Former smoker Physical Exam Vitals Vital Signs Date Time Temp Pulse Resp B/P Pulse Ox O2 Delivery O2 Flow Rate FiO2 01/10/17 22:29 111 20 89/68 100 Non Rebreather 15.0 01/10/17 21:58 114 22 89/51 100 Non Rebreather 15.0 01/10/17 21:42 100 15.0 100 01/10/17 21:03 Non Rebreather 15 01/10/17 21:03 Non Rebreather 15.0 01/10/17 20:29 98.7 142 32 77/42 100 Physical Exam Const: [] Moderate to severe distress Head: Atraumatic Eyes: Normal Conjunctiva ENT: Normal External Ears, Nose and Mouth. Neck: Full range of motion..~Mild JVD Resp: Decreased bibasilar breath sounds with no rales audible. Tachypnea, accessory muscle use per Cardio: Extreme irregularly irregular tachycardia, no murmurs Abd: Soft, non tender, non distended. Normal bowel sounds Skin: No petechiae or rashes Back: No midline or flank tenderness Ext: No cyanosis, or edema Neur: Awake and alert oriented 3, no focal deficits Psych: Normal Mood and Affect Result Diagram: 01/10/17204401/10/172044 Results 24 hrs Laboratory Tests Test 01/10/17 20:45 White Blood Count 4.110^3/ul Red Blood Count 4.0710^6/ul Hemoglobin 11.3g/dl Hematocrit 36.5% Mean Corpuscular Volume 89.7fl Mean Corpuscular Hemoglobin 27.8pg Mean Corpuscular Hemoglobin Concent 31.0g/dl Red Cell Distribution Width 19.8% Platelet Count 67500^3/UL Mean Platelet Volume 10.1fl Neutrophils % 73.4% Lymphocytes % 13.7% Monocytes % 9.0% Eosinophils % 3.7% Basophils % 0.2% Nucleated Red Blood Cells % 0.5/100WBC Neutrophils # 3.010^3/ul Lymphocytes # 0.610^3/ul Monocytes # 0.410^3/ul Eosinophils # 0.210^3/ul Basophils # 0.010^3/ul Nucleated Red Blood Cells # 0.010^3/ul Sodium Level 136mmol/L Potassium Level 4.8mmol/L Chloride Level 100mmol/L Carbon Dioxide Level 25mmol/L Anion Gap 16 Blood Urea Nitrogen 32mg/dl Creatinine 0.91mg/dl Glucose Level 115mg/dl Calcium Level 8.9mg/dl Total Bilirubin 1.7mg/dl Direct Bilirubin 0.00mg/dl Indirect Bilirubin 1.7mg/dl Aspartate Amino Transf (AST/SGOT) 32IU/L Alanine Aminotransferase (ALT/SGPT) 30IU/L Alkaline Phosphatase 112IU/L Troponin I 0.033ng/ml Total Protein 7.0g/dl Albumin 3.9g/dl Globulin 3.10g/dl Albumin/Globulin Ratio 1.25 Current Medications Medications (Trade) Dose Ordered Sig/Marck Route PRN Reason Start Time Stop Time Status Last Admin Dose Admin Sodium Chloride (NS) 500 ml @ 500 mls/hr Q1H STAT IV 01/10/17 20:30 01/10/17 21:29 DC 01/10/17 20:54 Aspirin (Aspirin) 325 mg ONCE STAT PO 01/10/17 20:30 01/10/17 20:32 DC 01/10/17 20:53 Diltiazem HCl (Cardizem Iv) 15 mg ONCE ONCE IV 01/10/17 20:30 01/10/17 20:32 DC 01/10/17 20:53 Metoprolol Tartrate 5 mg 5 mg ONCE ONCE IV 01/10/17 21:30 01/10/17 21:31 DC 01/10/17 21:24 Diltiazem HCl (Cardizem-D5W 125 Mg/125 ml Drip) 125 ml @ 5 mls/hr TITRATE IV 01/10/17 21:30 01/10/17 21:28 Ondansetron HCl (Zofran Inj) 4 mg ER BRIDGE PRN IV NAUSEA AND/OR VOMITING 01/10/17 23:00 01/11/17 22:59 Acetaminophen (Tylenol Tab) 650 mg ER BRIDGE PRN PO MILD PAIN/FEVER 01/10/17 23:00 01/11/17 22:59 Procedures/MDM Breakthrough A. fib with RVR as patient is compliant with her medications according to her. She had some mild hypotension initially was given Cardizem 50 mg IV push which decreased her heart rate 7 increased her blood pressure as well as help with her respiratory status. Respiratory is at bedside and case BiPAP was necessary. I then gave another 5 mg of IV metoprolol as well as started Cardizem drip. Patient's heart rate was more controlled after that. She was feeling better she will be admitted for monitoring and treatment of A. fib with likely echocardiogram and cardiology evaluation. No signs of acute cardiac ischemia currently but troponins will be trended EKG interpretation #1: A. fib with RVR rate of 140, right axis deviation, incomplete right bundle branch block, QTC of 528 EKG interpretation #2: Sinus tachycardia with first-degree AV block, right axis deviation, rate of 122, incomplete right bundle, no ST or T-wave changes concerning for acute ischemia. Chronic monitor interpretation: A. fib with RVR followed by sinus tachycardia followed by normal sinus rhythm. Chest x-ray interpretation: Mild engorgement of pulmonary vasculature consistent with mild CHF, no pneumothorax, no infiltrates, no fractures. Critical care time greater than 35 minutes: This includes treatment A. fib with RVR, stable vital signs, use of multiple medications to control A. fib as well as Cardizem drip, multiple visits patient's bedside to reassess status, review of chart, discussion with patient and admitting doctor. This does not include billable procedures. Departure Diagnosis: Primary Impression: Atrial fibrillation with RVR Additional Impressions: Respiratory distress CHF (congestive heart failure) Anemia Condition: Serious VINICIO SHANKAR DO Jan 10, 2017 22:52
[2017-01-10] MEDS ORDERED: ACETAMINOPHEN 325 MG TAB PO PRN (23:00)
[2017-01-10] MEDS ORDERED: ONDANSETRON 4 MG INJ IV PRN (23:00)
[2017-01-10 23:45] VITALS: BP 89/53; PULSE 57; RESP 18; Ht 165.1 cm; Wt 103.3 kg
[2017-01-11] VITALS (57 sets, daily range): BP systolic 63–133; BP diastolic 31–109; PULSE 91–180; RESP 11–38
[2017-01-11] MEDS ORDERED: DILTIAZEM-D5W 125MG/125ML DRIP 125 ML IV SCH
[2017-01-11] MEDS ORDERED: DOCUSATE SODIUM 100 MG CAP PO PRN
[2017-01-11] MEDS ORDERED: BISACODYL (EC) 5 MG TAB PO PRN
[2017-01-11] MEDS ORDERED: NACL 0.9% 3 ML SYG IV SCH
[2017-01-11] MEDS: FAMOTIDINE 20 MG TAB PO SCH ×3 (00:22→23:11)
[2017-01-11] MEDS: ACETAMINOPHEN 325 MG TAB PO PRN (00:23)
[2017-01-11] MEDS: ENOXAPARIN 100 MG/ML SYG SC SCH ×3 (00:24→23:14)
--- NOTE | 2017-01-11 01:12 | HP ---
Date/Time of Note Date/Time of Note DATE: 01/11/17 TIME: 01:11 Assessment/Plan VTE Prophylaxis VTE Prophylaxis Intervention: LMWH Lines/Catheters IV Catheter Type (from [facility]): Saline Lock Assessment/Plan Chief Complaint/Hosp Course This is a 56 year female being admitted to the telemetry floor for: 1. A-fib with RVR: Current episode could be secondary to recent illicit drug use and/or medication noncompliance. Continue Cardizem drip at the current time. Resume beta-avery in the a.m. and aspirin. Unsure whether patient is compliant with her home Xarelto dose. She was started already on Lovenox 1 mg/ kg twice daily prior to reporting that she was taking Xarelto at home. At the current time will resume her Lovenox and switch to Xarelto at cardiology's discretion. Will check an echocardiogram in the a.m. as last one was from April 2016 with an ejection fraction of 20% 2. 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 At the current time patient does not appear to be in any overt heart failure. Will continue her home dose of Lasix and continue the rest of her cardiac medication. Will repeat an echocardiogram as the last one was in April 2016 showing an ejection fraction of 20%. Cardiology was consulted. 3. Type 2 diabetes: We will check hemoglobin A1c will hold patient's home oral medications. Will put patient on insulin sliding scale diabetic diet. 4. History of CVA: Patient does not have any residual neurological deficits. Will continue aspirin and statin. Will check a lipid panel. 5. History of COPD: Patient currently is not short of breath, likely her shortness of breath was related to her atrial fibrillation she is not wheezing. 6. Substance abuse: Recent use and history of methamphetamine abuse and marijuana use. Patient's current symptoms of diarrhea nausea and vomiting likely appear to be secondary to her methamphetamine withdrawal. She denies have any fever or elevated white blood cell count. At the current time will provide patient with Ativan as needed withdrawal symptoms. Continue to monitor the patient. #7 DVT GI prophylaxis: Lovenox, acid avery Further treatment strategy will be implemented as per the clinical course Problems: HPI/ROS Admit Date/Time Admit Date/Time Jan 10, 2017 at 22:38 Hx of Present Illness Chief complaint: Shortness of breath, diarrhea vomiting This is a 56-year-old female with a past medical history of atrial fibrillation who presents today with shortness of breath and diarrhea and vomiting 1 day. Patient states that she was feeling fine on on Saturday and then on Saturday started developing shortness of breath diarrhea and vomiting. The vomiting and diarrhea were nonbloody. Patient states that she last use marijuana and methamphetamine approximately 3 days ago. She uses marijuana fairly often though she has decreased her methamphetamine use. Denies eating any undercooked foods or any food prepared outside her home. She denies any fevers. She denies any palpitations. In the ED patient did receive IV Cardizem followed by Cardizem drip at which point the patient's heart rate improved as well as her blood pressure. At the current time patient denies any chest pain or palpitations. Her mouth does feel dry. She denies any shortness of breath at this time. Of note patient states that she is compliant with her medications, though when looking at her medications I do see that she has multiple relatively full bottles of various medications. Allergies: NKDA Medications: See PRINCESS VARGAS Const: As per HPI Eyes : No pain discharge or redness or change in visual acuity ENT: No pain, sore throat, congestion, congestion, dysphagia or discharge Respiratory: As per HPI Cardiovascular: No chest pain, palpitation, PND, or edema GI : no change in appetite, abdominal pain, nausea, vomiting, diarrhea, constipation, or change in the color his stool Genitourinary: No dysuria, hematuria, flank pain , discharge or CVA tenderness Musculoskeletal: No joint pain, back pain, neck pain, restricted range of motion in neck or joints Skin: No rash, bruising or hives Neuro: No headache, dizziness, syncope, seizure, focal weakness Endocrine: No polyuria, polydipsia, temperature intolerance Psych: No hallucination, depression, anxiety or suicidal ideation PMH/Family/Social Past Medical History atrial fibrillation CVA Cardiomyopathy with systolic dysfunction COPD Diabetes History of brain tumor Past Surgical History Brain tumor removal 2016? Family History Significant Family History: no pertinent family hx Social History Smoking Status: Former smoker Drug Use: marijuana, other (methampetamine) Exam/Review of Systems Vital Signs Vitals Vital Signs Date Time Temp Pulse Resp B/P Pulse Ox O2 Delivery O2 Flow Rate FiO2 01/11/17 00:36 97.5 57 18 89/53 99 01/10/17 23:45 Nasal Cannula 2.0 01/10/17 21:42 100 Exam Exam General: Patient is a obese female lying in bed in no acute distress HEENT: Atraumatic, normocephalic. The pupils are equal, round and reactive. Extraocular motor are intact, mucous membranes dry Neck: Supple with full range of motion. No rigidity or meningismus Lungs: Clear to auscultation bilaterally no crackles rales or wheezing Heart: Irregularly irregular, rate controlled Abdomen: Soft , nontender, nondistended , bowel sounds are present. No guarding no rebound tenderness , Extremities: Normal to inspection, no edema no cyanosis Neurologic: Normal mental status, speech normal, cranial nerves II through XII are intact, motor and sensory are intact, no focal weakness, Additional Comments PROCEDURE: Chest x-ray CLINICAL INDICATION: Chest pain TECHNIQUE: Chest single view COMPARISON: 11/20/2016 FINDINGS: There is stable moderate cardiomegaly and mild interstitial vascular congestion. The lungs are clear. The costophrenic angles are sharp. The visualized bony thorax is unremarkable. IMPRESSION: Cardiomegaly with mild interstitial vascular congestion RPTAT: HH .London Jesus MD, MD Date Time Electronically viewed and signed by .London Jesus MD, MD on 01/10/2017 20:59 .W/ CC: VINICIO SHANKAR DO EKG : A. fib with RVR rate of 140, right axis deviation, incomplete right bundle branch block, QTC of 528 Labs Result Diagram: 01/10/17204401/10/172044 Medications Medications Current Medications Diltiazem HCl (Cardizem-D5W 125 Mg/125 ml Drip) 125 ml @ 5 mls/hr TITRATE IV Last administered on 01/10/17 21:28; Admin Dose 5 MLS/HR; Start 01/10/17 at 21:30 Acetaminophen (Tylenol Tab) 650 mg Q6H PRN PO PAIN LEVEL 1-3 OR FEVER Last administered on 01/11/17 00:23; Admin Dose 650 MG; Start 01/11/17 at 00:00 Docusate Sodium (Colace) 100 mg Q12H PRN PO CONSTIPATION; Start 01/11/17 at 00 :00 Bisacodyl (Dulcolax) 5 mg DAILY PRN PO CONSTIPATION; Start 01/11/17 at 00:00 Famotidine (Pepcid) 20 mg Q12 PO Last administered on 01/11/17 00:22; Admin Dose 20 MG; Start 01/11/17 at 00:00 Enoxaparin Sodium 100 mg 100 mg Q12 SC Last administered on 01/11/17 00:24; Admin Dose 100 MG; Start 01/11/17 at 00:00 Diltiazem HCl (Cardizem-D5W 125 Mg/125 ml Drip) 125 ml @ 5 mls/hr TITRATE IV ; Start 01/11/17 at 00:00 KB CAMPO Jan 11, 2017 01:12
[2017-01-11] MEDS ORDERED: DEXTROSE 50% 50 ML SYRINGE IV PRN (02:00)
[2017-01-11] MEDS ORDERED: ACCU-CHEK XX SCH (02:00)
[2017-01-11] MEDS: ACCU-CHEK XX SCH (02:00)
[2017-01-11] MEDS ORDERED: GLUCAGON 1 MG INJ IM PRN (02:00)
[2017-01-11] MEDS ORDERED: GLUCOSE GEL 15 GRAM TUBE BUCCAL PRN (02:00)
[2017-01-11] MEDS ORDERED: GLUCOSE GEL 15 GRAM TUBE PO PRN ×2 (02:00)
[2017-01-11 03:35] LABS: CK-MB 1.94 ng/ml (0.0-2.4); TROPONIN-I 0.034 ng/ml (0.00-0.12)
[2017-01-11] MEDS: FUROSEMIDE 40 MG TAB PO SCH ×2 (05:46→17:38)
[2017-01-11] MEDS: LORAZEPAM 2 MG INJ IV PRN ×2 (05:46→16:43)
[2017-01-11] MEDS: INSULIN ASPART [NOVOLOG] 3 ML PEN SC SCH ×4 (08:00→21:00)
[2017-01-11] MEDS ORDERED: SOD CHLORIDE 0.9% 1,000 ML IV ONE (08:30)
[2017-01-11] MEDS ORDERED: NORepinephrine 8MG/250 ML (PMX 250 ML ONE (08:39)
[2017-01-11 08:52] LABS: BASOPHILS % 0.2 % (0.0-2.0); EOSINOPHILS # 0.4 10^3/ul (0.0-0.5); EOSINOPHILS % 9.2 % (0.0-7.0); HEMATOCRIT 34.4 % (37.0-47.0); HEMOGLOBIN 10.6 g/dl (12.0-16.0); LYMPHOCYTES # 1.1 10^3/ul (0.8-2.9); MEAN CORPUSCULAR HEMOGLOBIN 27.8 pg (29.0-33.0); MEAN CORPUSCULAR HGB CONC 30.8 g/dl (32.0-37.0); MEAN CORPUSCULAR VOLUME 90.3 fl (82.0-101.0); MEAN PLATELET VOLUME 10.6 fl (7.4-10.4); MONOCYTE # 0.4 10^3/ul (0.3-0.9); MONOCYTES % 9.6 % (0.0-11.0); NEUTROPHIL # 2.4 10^3/ul (1.6-7.5); NEUTROPHILS % 55.8 % (39.0-77.0); NUCLEATED RED BLOOD CELLS% 0.7 /100WBC (0.0-0.0); PLATELET COUNT 207 10^3/UL (140-415); RED BLOOD COUNT 3.81 10^6/ul (4.20-5.40); WHITE BLOOD COUNT 4.4 10^3/ul (4.8-10.8)
[2017-01-11] MEDS: NORepinephrine 8MG/250 ML (PMX 250 ML IV SCH (08:53)
[2017-01-11] MEDS: BENAZEPRIL 20 MG TAB PO SCH (09:00)
[2017-01-11] MEDS: DEXTROSE 50% 50 ML SYRINGE IV PRN (09:01)
[2017-01-11 09:17] LABS: ALBUMIN 3.3 g/dl (3.3-4.9); ALBUMIN/GLOBULIN RATIO 0.91; BILIRUBIN,INDIRECT 1.5 mg/dl (0-1.1); BILIRUBIN,TOTAL 1.5 mg/dl (0.2-1.3); CALCIUM 8.7 mg/dl (8.4-10.2); CHOL/HDL RATIO 5.9 RATIO; CREATININE 1.13 mg/dl (0.44-1.00); MAGNESIUM 1.7 mg/dl (1.7-2.5); POTASSIUM 4.3 mmol/L (3.5-5.1); TOTAL PROTEIN 6.9 g/dl (6.1-8.1)
[2017-01-11 09:19] LABS: CANNABINOIDS Positive (NEGATIVE); OPIATES Negative (NEGATIVE)
[2017-01-11 09:20] LABS: BARBITURATES Negative (NEGATIVE); BENZODIAZEPINES Negative (NEGATIVE); COCAINE Negative (NEGATIVE)
[2017-01-11] MEDS: ASPIRIN (EC) 81 MG TAB PO SCH (09:26)
[2017-01-11 09:28] LABS: CK-MB 1.74 ng/ml (0.0-2.4); TROPONIN-I 0.045 ng/ml (0.00-0.12)
[2017-01-11 09:42] LABS: THYROID STIMULATING HORMONE 5.6 MIU/L (0.465-4.680)
[2017-01-11 11:03] LABS: ADD UMIC YES; UR ASCORBIC ACID NEGATIVE (NEGATIVE); UR BACTERIA FEW /HPF (NONE SEEN); UR BILIRUBIN (Dip) 1+ mg/dL (NEGATIVE); UR BLOOD (Dip) NEGATIVE (NEGATIVE); UR CLARITY SLIGHTLY CLOUDY (CLEAR); UR COLOR AMBER (YELLOW); UR GLUCOSE (Dip) NEGATIVE (NEGATIVE); UR KETONES (Dip) NEGATIVE (NEGATIVE); UR LEUKOCYTE ESTERASE (Dip) NEGATIVE Leu/ul (NEGATIVE); UR MUCUS FEW /HPF (NONE SEEN); UR NITRITE (Dip) NEGATIVE (NEGATIVE); UR RBC 2 /HPF (0-5); UR SPECIFIC GRAVITY (Dip) 1.025 (1.003-1.030); UR SQUAMOUS EPITHELIAL CELL FEW /HPF (FEW); UR TOTAL PROTEIN (Dip) 1+ mg/dl (NEGATIVE); UR UROBILINOGEN (Dip) 2+ mg/dL (NEGATIVE)
[2017-01-11] MEDS ORDERED: DIGOXIN 500 MCG INJ IV ONE (12:30)
[2017-01-11] MEDS ORDERED: AMIODARONE 150MG/D5W BOLUS 100 ML IV ONE (12:30)
--- NOTE | 2017-01-11 12:53 | CONS ---
DATE OF ADMISSION: 01/10/2017 DATE OF CONSULTATION: 01/11/2017 REASON FOR CONSULTATION: Hypotension, congestive heart failure, atrial fibrillation with rapid vent ricular response. REQUESTING PHYSICIAN: Dr. Mendenhall from the hospitalist department. HISTORY OF PRESENT ILLNESS: Ms. Giles is a 56-year-old female with a history of cardiomyopathy w ith severely depressed left ventricular ejection fraction, last known to be 20% by prior echo, 05/14 17, hypertension, dyslipidemia, substance abuse, who presented with complaints of shortness of breat h, loose stools, vomiting after recently using marijuana and methamphetamine. Upon arrival, tempera ture of 98.7, blood pressure low at 77/42, pulse 142, respiratory rate 32, saturation at 100%. Candice ent's labs showed white count 4.1, hemoglobin 11.3, platelet count 199. Sodium of 136, potassium 4. 8, creatinine 0.9, BUN 32. Troponin negative. Toxicology screen positive for amphetamines, UA bord stephanie. The patient underwent a chest x-ray revealing cardiomegaly with mild interstitial vascular congestion. The patient's electrocardiogram revealed atrial flutter with and a rapid ventricu lar response, right axis deviation and nonspecific ST-T abnormalities diffusely. Patient subsequent ly in the ER received diltiazem IV push, aspirin, she was started on diltiazem drip. Patient was tr ansferred initially to the floor and became hypotensive requiring transfer to ICU where she remains at this time on Levophed pressor support with ongoing atrial flutter with rapid ventricular response . The patient is very lethargic and barely arousable. PAST MEDICAL HISTORY: As above in HPI. MEDICATIONS CURRENTLY IN HOSPITAL: 1. Aspirin 81 mg daily. 2. Benazepril 20 mg daily. 3. Carvedilol 12.5 mg p.o. b.i.d. 4. Levophed. 5. Insulin. 6. Lasix 40 mg p.o. b.i.d. 7. Lovenox 100 mg subQ q.12h. ALLERGIES: NO KNOWN DRUG ALLERGIES. SOCIAL HISTORY: Positive substance abuse, positive ETOH. FAMILY HISTORY: No history of sudden cardiac or early CAD. REVIEW OF SYSTEMS: As above in HPI. CONSTITUTIONAL: No fevers, chills. PULMONARY: Shortness of breath. CARDIOVASCULAR: Congestive heart failure. GASTROINTESTINAL: No vomiting. GENITOURINARY: No hematuria. MUSCULOSKELETAL: Degenerative joint disease. PSYCHIATRIC: The patient denies depression. NEUROLOGIC: No documented history of CVA, but altered mental state. CARDIOVASCULAR: Atrial flutter with rapid ventricular response. PHYSICAL EXAMINATION: VITAL SIGNS: Temperature of 98, blood pressure 83/65, pulse 126, respiratory rate 18, saturating 97 %. GENERAL: The patient is sleeping, encephalopathic, somewhat difficult to arouse, but arousable. NECK: JVP approximately 10 cm of water. HEART: Tachycardic, irregularly irregular, I/IV systolic murmur, laterally displaced PMI. ABDOMEN: Positive bowel sounds, soft, obese. EXTREMITIES: Trace edema, 1+ pulses bilaterally, posterior tibial. LABORATORY DATA: As above in HPI, with most recent from today, sodium 138, potassium 4.3, creatinin e 1.1, BUN 36. TSH of 5.6. LDL of 71, HDL 17. White blood cell count 4.4, hemoglobin 10.6, platel et count at 207. IMAGING STUDIES: As above in HPI. No further imaging Chest x-ray did review at this time. ELECTROCARDIOGRAM: As above in HPI. No further electrocardiograms for my review at this time. IMPRESSION 1. Hypotension/shock, currently on Levophed pressor support. 2. Atrial flutter with variable response. 3. History of cardiomyopathy with severely depressed left ventricular ejection fraction. 4. Congestive heart failure by chest x-ray, systolic by prior echo, acute on chronic. 5. Substance abuse including methamphetamines. 6. History of cerebrovascular accident. 7. Diabetes mellitus. 8. History of chronic obstructive pulmonary disease. RECOMMENDATIONS: 1. At this time, I would maintain the patient in the ICU on Levophed pressor support, weaning as po ssible. 2. We will initiate the patient on amiodarone in an attempt to return patient to sinus rhythm to im prove hemodynamics. 3. We will reassess patient's ejection fraction with 2D echo and complete a rule out for myocardial infarction to ensure the patient's consultation symptoms are not the result of or not resulted in a n acute myocardial infarction. 4. Continue the patient's Lovenox for systemic anticoagulation for prevention of thromboembolic com plications in the setting of atrial fibrillation/atrial flutter and decreased EF placing her at a hi gh CHADS score. 5. Check a fasting lipid panel for general risk stratification. 6. Follow the patient's blood sugar closely and adjust for insulin as necessary. 7. Follow the patient's mental status closely. 8. Continue the patient's gentle Lasix diuresis, following strict I's and O's and respiratory statu s closely. I will continue the patient's baseline aspirin at this time. Thank you for allowing me to take part in the care of this patient. I will continue to follow very closely with you with recommendations to be made as the patient progresses through her inpatient hos pital clinical course. Dictated By: DAJA LARSEN/NAGA Conf#: [id number] DID#: [id number] CC: JESSICA MENDENHALL MD;*End*
[2017-01-11] MEDS ORDERED: AMIODARONE 900 MG in DEXTROSE 5% 482 ML IV SCH (13:00)
[2017-01-11 14:08] LABS: THYROID STIMULATING HORMONE 5.25 MIU/L (0.465-4.680)
--- NOTE | 2017-01-11 16:33 | RADRPT ---
Echocardiogram Report Patient Name: PAGE GUTIÉRREZ Gender: Female Date: 1960 Study Date: 11-Jan-2017 Guest Service Agent: RAÚL Parr.[facility] Location: [address] [place] [address]. Physician: KB CAMPO Quality: Good Procedures: Transthoracic echocardiogram with complete 2D, M-Mode, and doppler examination. Indications: WITH RVR. 2D/M Mode Doppler Measurement Value Normal Ranges Measurement Value Normal Ranges LVIDd 2D 6.1 3.5 - 5.6 cm BENEDICT Vmax 1.7 cm2 LVIDs 2D 5.9 2.1 - 4.1 cm AV Peak Romie 1.1 m/sec FS 2D 3.1 % AV Peak PG 5.0 mmHg LVPWd 2D 1.3 0.6 - 1.1 cm LVOT Peak Romie 0.8 m/sec IVSd 2D 0.9 0.6 - 1.1 cm LVOT Peak PG 3.0 mmHg IVS/LVPW 2D 0.7 MV E Peak Romie 1.4 m/sec AoR Diam 2D 2.9 2.0 - 3.7 cm MV Decel Time 151 msec LA/Ao 2D 2 0 - 1 TR Peak Romie 3.0 m/sec EDV 2D 225.0 cm3 TR Peak PG 37.0 mmHg ESV 2D 204.0 cm3 RVSP 52.0 mmHg LA Dimen 2D 5.0 2.3 - 4.0 cm LVOT Diam 1.7 cm LVOT Area 2.3 cm2 Findings Left Ventricle: Normal left ventricular wall thickness. Mild enlargement of left ventricle cavity. Severe global left ventricular systolic dysfunction. Ejection fraction is visually estimated at 15 %. Tissue Doppler/Mitral Doppler indices are consistent with restrictive physiology with markedly elevated left atrial pressure (Stage IIIIV diastolic dysfunction). Right Ventricle: Mild enlargement of right ventricle. Left Atrium: There is severe enlargement of left atrium. Right Atrium: There is moderate enlargement of right atrium. Mitral Valve: Mild mitral leaflet calcification. Moderate to severe mitral valve regurgitation. Aortic Valve: No significant aortic stenosis or insufficiency. Trileaflet aortic valve. Trace aortic valve regurgitation. Tricuspid Valve: There is moderate tricuspid regurgitation. Pulmonic Valve: Pulmonic valve not well visualized. Pericardium: Normal pericardium with no significant pericardial effusion. Aorta: Normal aortic root. IVC: Dilated IVC without respiratory collapse consistent with elevated right atrial pressure. Conclusions 1.Normal left ventricular wall thickness. Mild enlargement of left ventricle cavity. Severe global left ventricular systolic dysfunction. Ejection fraction is visually estimated at 15-20 %. Tissue Doppler/Mitral Doppler indices are consistent with restrictive physiology with markedly elevated left atrial pressure (Stage III-IV diastolic dysfunction). 2.Mild enlargement of right ventricle. 3.There is severe enlargement of left atrium. 4.There is moderate enlargement of right atrium. 5.Mild mitral leaflet calcification. Moderate to severe mitral valve regurgitation. 6.No significant aortic stenosis or insufficiency. Trileaflet aortic valve. Trace aortic valve regurgitation. 7.There is moderate tricuspid regurgitation. 8.Pulmonic valve not well visualized. 9.Normal pericardium with no significant pericardial effusion. Electronically Signed By: Paul Vasquez 11-Jan-2017 16:32:46 -0700 Patient Name: PAGE GUTIÉRREZ Study Date: 11-Jan-2017 [id number]
--- NOTE | 2017-01-11 16:56 | RADRPT ---
Vent Rate: 113 bpm RR Interval: 0 msec HI Interval: 0 msec QRS Duration: 106 msec QT Interval: 382 msec QTC Interval: 523 msec P-R-T Posen: 0 - 98 - 54 degrees Atrial fibrillation with rapid ventricular response Rightward axis Low voltage QRS Abnormal ECG Electronically Signed By: Paul Vasquez [id number]
[2017-01-11 19:10] LABS: CK-MB 1.75 ng/ml (0.0-2.4); TROPONIN-I 0.03 ng/ml (0.00-0.12)
[2017-01-11 19:56] LABS: AADO2 Arterial 41.3 mmHg (7.0-24.0); Allen Test ACCEPTAB; Arterial Base Excess -4.5 mmol/L (-3.0-3); Arterial COHb 0.2 % (0.0-3.0); Arterial Fraction of Oxyhgb 97.6 % (93.0-99.0); Arterial HCO3 19.9 mmol/L (22.0-26.0); Arterial MetHb 0.3 % (0.0-1.5); Arterial Total Hemglobin 13.2 g/dl (12.0-18.0); MODE NASAL CANNULA
[2017-01-11] MEDS ORDERED: LORAZEPAM 2 MG INJ IV ONE (20:30)
[2017-01-11] MEDS ORDERED: SOD CHLORIDE 0.9% 1,000 ML IV SCH (21:00)
[2017-01-11] MEDS ORDERED: PROPOFOL 100 ML ONE (21:42)
[2017-01-11] MEDS ORDERED: FENTAnyl (DRIP) 1000 mcg/100mL 100 ML IV ONE (21:44)
--- NOTE | 2017-01-11 22:51 | RADRPT ---
PROCEDURE: XR Chest. CLINICAL INDICATION: Intubation. TECHNIQUE: Single frontal view of the chest. COMPARISON: 06/25/2016. FINDINGS: Endotracheal intubation is seen with tip about 22 mm above the stephen. Nasogastric tube in place wit h tip and side port in the mid stomach. Stable cardiomegaly. The lungs are clear. No signs of pleural fluid or pneumothorax are seen. The os seous structures and soft tissues are unremarkable. IMPRESSION: 1. New endotracheal intubation is seen with tip about 22 mm above the stephen. 2. Nasogastric tube in place with tip and side port in the mid stomach. RPTAT: [facility] Physician Johnny Date Time Electronically viewed and signed by Physician Johnny on 01/11/2017 22:50 RS/
[2017-01-11 22:58] LABS: BASOPHILS % 0.4 % (0.0-2.0); EOSINOPHILS # 0.3 10^3/ul (0.0-0.5); EOSINOPHILS % 4.8 % (0.0-7.0); HEMATOCRIT 37.5 % (37.0-47.0); HEMOGLOBIN 11.4 g/dl (12.0-16.0); LYMPHOCYTES # 1.1 10^3/ul (0.8-2.9); LYMPHOCYTES % 21.8 % (15.0-51.0); MEAN CORPUSCULAR HEMOGLOBIN 27.7 pg (29.0-33.0); MEAN CORPUSCULAR HGB CONC 30.4 g/dl (32.0-37.0); MEAN PLATELET VOLUME 10.6 fl (7.4-10.4); MONOCYTE # 0.4 10^3/ul (0.3-0.9); NEUTROPHIL # 3.4 10^3/ul (1.6-7.5); NEUTROPHILS % 64.6 % (39.0-77.0); NUCLEATED RED BLOOD CELLS% 0.8 /100WBC (0.0-0.0); PLATELET COUNT 219 10^3/UL (140-415); RED BLOOD COUNT 4.12 10^6/ul (4.20-5.40); RED CELL DISTRIBUTION WIDTH 20.2 % (11.5-14.5); WHITE BLOOD COUNT 5.2 10^3/ul (4.8-10.8)
[2017-01-11 23:21] LABS: ALBUMIN 3.5 g/dl (3.3-4.9); ALBUMIN/GLOBULIN RATIO 0.92; BILIRUBIN,INDIRECT 2.1 mg/dl (0-1.1); BILIRUBIN,TOTAL 2.1 mg/dl (0.2-1.3); CALCIUM 8.5 mg/dl (8.4-10.2); CREATININE 1.17 mg/dl (0.44-1.00); POTASSIUM 4.5 mmol/L (3.5-5.1); TOTAL PROTEIN 7.3 g/dl (6.1-8.1)
[2017-01-11] MEDS ORDERED: PROPOFOL 100 ML IV SCH (23:30)
[2017-01-11 23:42] LABS: AADO2 Arterial 573.1 mmHg (7.0-24.0); Allen Test ACCEPTAB; Arterial Base Excess -5.9 mmol/L (-3.0-3); Arterial COHb 0.4 % (0.0-3.0); Arterial Fraction of Oxyhgb 94.7 % (93.0-99.0); Arterial HCO3 21.4 mmol/L (22.0-26.0); Arterial MetHb 0.3 % (0.0-1.5); Arterial Total Hemglobin 13.9 g/dl (12.0-18.0); MODE VENT - AC
[2017-01-12] VITALS (98 sets, daily range): BP systolic 60–120; BP diastolic 41–95; PULSE 84–128; RESP 3–26
[2017-01-12] MEDS: FENTAnyl (DRIP) 1000 mcg/100mL 100 ML IV SCH ×2 (01:01→08:53)
[2017-01-12] MEDS ORDERED: MIDAZOLAM (DRIP) 50 mg/50 mL 50 ML IV ONE (01:27)
[2017-01-12] MEDS: MIDAZOLAM (DRIP) 50 mg/50 mL 50 ML IV SCH ×4 (01:30→19:59)
[2017-01-12 01:36] LABS: CK-MB 1.47 ng/ml (0.0-2.4); TROPONIN-I 0.028 ng/ml (0.00-0.12)
[2017-01-12] MEDS: LORAZEPAM 2 MG INJ IV PRN ×2 (01:53→23:00)
[2017-01-12] MEDS: ACCU-CHEK XX SCH (02:00)
[2017-01-12 04:55] LABS: BASOPHILS % 0.4 % (0.0-2.0); EOSINOPHILS # 0.3 10^3/ul (0.0-0.5); EOSINOPHILS % 5.3 % (0.0-7.0); HEMATOCRIT 33.7 % (37.0-47.0); HEMOGLOBIN 10.5 g/dl (12.0-16.0); LYMPHOCYTES # 1.2 10^3/ul (0.8-2.9); LYMPHOCYTES % 21.3 % (15.0-51.0); MEAN CORPUSCULAR HEMOGLOBIN 28.2 pg (29.0-33.0); MEAN CORPUSCULAR HGB CONC 31.2 g/dl (32.0-37.0); MEAN CORPUSCULAR VOLUME 90.3 fl (82.0-101.0); MEAN PLATELET VOLUME 10.2 fl (7.4-10.4); MONOCYTE # 0.5 10^3/ul (0.3-0.9); MONOCYTES % 9.5 % (0.0-11.0); NEUTROPHIL # 3.4 10^3/ul (1.6-7.5); NEUTROPHILS % 63.1 % (39.0-77.0); NUCLEATED RED BLOOD CELLS% 0.6 /100WBC (0.0-0.0); PLATELET COUNT 181 10^3/UL (140-415); RED BLOOD COUNT 3.73 10^6/ul (4.20-5.40); RED CELL DISTRIBUTION WIDTH 20.3 % (11.5-14.5); WHITE BLOOD COUNT 5.5 10^3/ul (4.8-10.8)
[2017-01-12] MEDS: FUROSEMIDE 40 MG TAB PO SCH ×2 (05:46→17:30)
[2017-01-12] MEDS: INSULIN ASPART [NOVOLOG] 3 ML PEN SC SCH (06:27)
[2017-01-12] MEDS ORDERED: ROCURONIUM 50 MG INJ ONE (07:00)
[2017-01-12] MEDS ORDERED: ETOMIDATE 20 MG INJ ONE (07:00)
[2017-01-12] MEDS ORDERED: DEXTROSE 50% 50 ML SYRINGE IV ONE (07:00)
[2017-01-12] MEDS ORDERED: DEXTROSE 5%-0.45% NACL 1,000 ML IV SCH (07:00)
[2017-01-12 07:36] LABS: AADO2 Arterial 185.2 mmHg (7.0-24.0); Allen Test ACCEPTAB; Arterial Base Excess -4.8 mmol/L (-3.0-3); Arterial COHb 0.3 % (0.0-3.0); Arterial Fraction of Oxyhgb 91.9 % (93.0-99.0); Arterial HCO3 18.9 mmol/L (22.0-26.0); Arterial MetHb 0.3 % (0.0-1.5); Arterial Total Hemglobin 11.7 g/dl (12.0-18.0); MODE VENT - AC
[2017-01-12 08:37] LABS: AADO2 Arterial 154.1 mmHg (7.0-24.0); Allen Test ACCEPTAB; Arterial Base Excess -3.4 mmol/L (-3.0-3); Arterial COHb 0.3 % (0.0-3.0); Arterial Fraction of Oxyhgb 98.6 % (93.0-99.0); Arterial HCO3 21.1 mmol/L (22.0-26.0); Arterial MetHb 0.2 % (0.0-1.5); Arterial Total Hemglobin 12.5 g/dl (12.0-18.0); MODE VENT - AC
[2017-01-12] MEDS: ENOXAPARIN 100 MG/ML SYG SC SCH ×2 (08:53→20:44)
[2017-01-12] MEDS: FAMOTIDINE 20 MG TAB PO SCH ×2 (08:53→20:46)
[2017-01-12] MEDS: ASPIRIN (EC) 81 MG TAB PO SCH (08:53)
[2017-01-12] MEDS: Insulin NOVOLOG SS MILD Algorithm (NPO/TPN/ENTERAL FEEDS) SC SCH ×4 (08:54→20:46)
[2017-01-12] MEDS: BENAZEPRIL 20 MG TAB PO SCH (08:54)
[2017-01-12] MEDS ORDERED: INSULIN ASPART [NOVOLOG] 3 ML PEN SC SCH (09:00)
--- NOTE | 2017-01-12 09:22 | EN ---
Date/Time of Note Date/Time of Note DATE: 01/12/17 TIME: 09:11 Event Note Medicine Medicine Event Note Overnight patient was noted to be in acute respiratory distress, she was using her accessory muscles of breathing. She had cyanosis of her lips. Bilateral distal upper and lower extremities were cool to touch and there was mottling seen at the bilateral lower extremities. Patient was put on BiPAP. ABG that was drawn was actually within acceptable values at that time however due to the patient's clinical condition/status it was determined that the best course of action would be to intubate the patient as she appear to be in impending respiratory failure. The ED physician was called and patient was intubated. There was improvement noted in her oxygenation at that time with a return of normal skin color to the lips disappearance of the cyanosis. Patient also was hypertensive that time and central line was placed. Vasopressors were started as well as IV fluids. Patient also put on a bear hugger through this process. With her extremities again becoming warm and perfused, signs of mottling improved. Stat lab results were drawn including a lactate level. We will follow this and investigate further causes of this current episode at this time. Patient does have an underlying ejection fraction of 15% as per echocardiogram of note also patient was positive for methamphetamines and marijuana. Prior to well because the patient is going to respiratory distress I do feel is secondary to methamphetamine withdrawal. We will keep the patient sedated on Versed and fentanyl. Vital signs: 90/54, pulse 128, blood pressure, SPO2: 96% on 2 L nasal cannula. General: Patient is mumbling, she does appear confused and is having difficulty responding to questions appropriately. HEENT: Cyanosis of the lip CVS: Sinus tachycardia, Lungs: Clear to auscultation bilaterally Skin: Cool to touch of the bilateral distal upper and lower extremities, mottling noted of the bilateral lower extremities, cyanosis of the lips Neuro: Somnolent though arousable, unable to assess further neurological exam secondary to patient's critical status. Assessment and plan: #1 cyanosis: Patient appears to be in impending respiratory failure. Patient was initially started on BiPAP however it appears the patient was further deteriorating. The decision was made to intubate the patient. After intubation there was resolution in the patient's cyanosis of the lips and there was also improvement in the mottling of her bilateral lower extremities. Bear hugger was applied as well. #2 Ventilatory dependant respiratory failure: now intubated. Vent management. Check abg in 1 hour. # 3 Shock: likely cardiogenic. Check lactate. Central line access has been achieved. Continue amiodarone and levophed as per cardio recs. Check abg in 1 hour. Fluid resuscitation. Greater than 50 minutes of critical care time was spent on the care and management of this patient. KB CAMPO Jan 12, 2017 09:22
[2017-01-12 10:06] LABS: ALBUMIN/GLOBULIN RATIO 0.9; BILIRUBIN,INDIRECT 1.4 mg/dl (0-1.1); BILIRUBIN,TOTAL 1.4 mg/dl (0.2-1.3); CALCIUM 8.3 mg/dl (8.4-10.2); CREATININE 1.21 mg/dl (0.44-1.00); POTASSIUM 4.4 mmol/L (3.5-5.1); TOTAL PROTEIN 6.3 g/dl (6.1-8.1)
[2017-01-12 10:09] LABS: CREATINE KINASE < 20 IU/L (23-200)
[2017-01-12 10:18] LABS: CK-MB 1.15 ng/ml (0.0-2.4); TROPONIN-I 0.034 ng/ml (0.00-0.12)
[2017-01-12] MEDS ORDERED: NORepinephrine 8MG/250 ML (PMX 250 ML ONE (13:24)
[2017-01-12] MEDS: DOBUTamine/D5W 2 MG/ML DRIP 250 ML IV SCH (13:41)
--- NOTE | 2017-01-12 13:50 | CONS ---
Date/Time of Note Date/Time of Note DATE: 01/12/17 TIME: 13:43 Assessment/Plan Assessment/Plan Chief Complaint/Hosp Course IMPRESSION 1. Hypotension/shock, currently on Levophed pressor support. 2. Atrial flutter with variable response. 3. History of cardiomyopathy with severely depressed left ventricular ejection fraction. 4. Congestive heart failure by chest x-ray, systolic by prior echo, acute on chronic. 5. Substance abuse including methamphetamines. 6. History of cerebrovascular accident. 7. Diabetes mellitus. 8. History of chronic obstructive pulmonary disease. Recc: -ICU tele monitoring -Wean levo as tolerated -Started on dobutamine which may cause excessive tachycardia given AFL and also since afterload reducing somewhat going against effects of Levo. Will have to watch closely and titrate slow and possibly d/c -Resume amiodarone now PO and also completed full IV load in attempt to return to SR and mitigate tachcardia from beta effects -Continue asa Problems: Consultation Date/Type/Reason Admit Date/Time Jan 10, 2017 at 22:38 Initial Consult Date 01/11/2017 Type of Consultation: cardiology Reason for Consultation CHF/hypotension Referring Provider: KB CAMPO Exam/Review of Systems Vital Signs Vitals Vital Signs Date Time Temp Pulse Resp B/P Pulse Ox O2 Delivery O2 Flow Rate FiO2 01/12/17 13:30 108 20 100 40 01/12/17 11:50 84/60 01/12/17 11:00 Mechanical Ventilator 01/12/17 07:30 98.0 01/11/17 20:55 2.0 Intake and Output 01/11/17 01/11/17 01/12/17 15:00 23:00 07:00 Intake Total 537.78 ml 490.42 ml 742.17 ml Output Total 450 ml 520 ml 325 ml Balance 87.78 ml -29.58 ml 417.17 ml Exam Review of Systems: CONSTITUTIONAL: No fevers, chills. PULMONARY: No sob CARDIOVASCULAR: No chest pain/palpitations GASTROINTESTINAL: No nausea/vomiting. GENITOURINARY: No hematuria/dysuria. MUSCULOSKELETAL: No myagias/arthalgias. PSYCHIATRIC: The patient denies depression. NEUROLOGIC: No weakness Constitutional: alert, other (sedated) Psych: no complaints Head: normocephalic ENMT: mucosa pink and moist Neck: jvd (9 cm water), supple Respiratory: diminished breath sounds (at bases/B) Cardiovascular: irregular rhythm Gastrointestinal: non-tender, soft Musculoskeletal: muscle tone (normal) Extremities: pitting pedal edema (bilateral) Results Result Diagram: 01/12/17 0430 01/12/17 0430 Results 24 hrs Laboratory Tests Test 01/11/17 17:33 01/11/17 18:03 01/11/17 19:40 01/11/17 19:55 Bedside Glucose 247 H 165 Creatine Kinase 37 Creatine Kinase Index 4.7 Creatinine Kinase MB (Mass) 1.75 Troponin I 0.030 Blood Gas Specimen Source Blood arterial Arterial Blood Date Drawn 01/11/2017 7:40:19 PM Arterial Blood pH (Temp corrected) 7.377 Arterial Blood pCO2 (Temp correct) 34.6 L Arterial Blood pO2 (Temp corrected) 117.5 H Arterial Blood HCO3 19.9 L Arterial Blood Base Excess -4.5 L Arterial Blood Oxygen Saturation 98.1 H Nik Test ACCEPTAB Arterial Blood Gas Puncture Site Left Radial Arterial Blood Carboxyhemoglobin 0.2 Arterial Blood Methemoglobin 0.3 Blood Gas A-a O2 Differential 41.3 H Oxyhemoglobin Percent 97.6 Total Hemoglobin 13.2 Blood Gas Temperature 37.0 Blood Gas Modality NASAL CANNULA FiO2 28.0 Blood Gas Notified Whom MA Blood Gas Notified Time 01/11/2017 7:56:52 PM Test 01/11/17 21:04 01/11/17 21:59 01/11/17 22:50 01/11/17 23:12 Sodium Level 138 Potassium Level 4.5 Chloride Level 102 Carbon Dioxide Level 23 Anion Gap 18 H Blood Urea Nitrogen 38 H Creatinine 1.17 H Glucose Level 140 # Lactic Acid Level 3.5 *H Calcium Level 8.5 Total Bilirubin 2.1 H Direct Bilirubin 0.00 Indirect Bilirubin 2.1 H Aspartate Amino Transf (AST/SGOT) 43 Alanine Aminotransferase (ALT/SGPT) 36 Alkaline Phosphatase 97 Total Protein 7.3 Albumin 3.5 Globulin 3.80 H Albumin/Globulin Ratio 0.92 White Blood Count 5.2 Red Blood Count 4.12 L Hemoglobin 11.4 L Hematocrit 37.5 Mean Corpuscular Volume 91.0 Mean Corpuscular Hemoglobin 27.7 L Mean Corpuscular Hemoglobin Concent 30.4 L Red Cell Distribution Width 20.2 H Platelet Count 219 Mean Platelet Volume 10.6 H Neutrophils % 64.6 Lymphocytes % 21.8 Monocytes % 8.0 Eosinophils % 4.8 Basophils % 0.4 Nucleated Red Blood Cells % 0.8 H Neutrophils # 3.4 Lymphocytes # 1.1 Monocytes # 0.4 Eosinophils # 0.3 Basophils # 0.0 Nucleated Red Blood Cells # 0.0 Blood Gas Specimen Source Blood arterial Arterial Blood Date Drawn 01/11/2017 10:55:54 PM Arterial Blood pH (Temp corrected) 7.259 *L Arterial Blood pCO2 (Temp correct) 48.8 H Arterial Blood pO2 (Temp corrected) 91.1 Arterial Blood HCO3 21.4 L Arterial Blood Base Excess -5.9 L Arterial Blood Oxygen Saturation 95.4 Nik Test ACCEPTAB Arterial Blood Gas Puncture Site Right Radial Arterial Blood Carboxyhemoglobin 0.4 Arterial Blood Methemoglobin 0.3 Blood Gas A-a O2 Differential 573.1 H Oxyhemoglobin Percent 94.7 Total Hemoglobin 13.9 Blood Gas Temperature 37.0 Blood Gas Respiration Rate 16.0 Blood Gas Actual Respiration Rate 20 Blood Gas Modality VENT - AC FiO2 100.0 Blood Gas Tidal Volume 450.0 Blood Gas Low PEEP Setting 5.0 Blood Gas Critical Value Read Back Grant SHAH RN Blood Gas Notified Whom MA Blood Gas Notified Time 01/11/2017 11:41:30 PM Bedside Glucose 135 Test 01/12/17 00:36 01/12/17 02:54 01/12/17 04:30 01/12/17 05:00 Creatine Kinase 30 < 20 L Creatine Kinase Index 4.9 Creatinine Kinase MB (Mass) 1.47 1.15 Troponin I 0.028 0.034 Bedside Glucose 100 White Blood Count 5.5 Red Blood Count 3.73 L Hemoglobin 10.5 L Hematocrit 33.7 L Mean Corpuscular Volume 90.3 Mean Corpuscular Hemoglobin 28.2 L Mean Corpuscular Hemoglobin Concent 31.2 L Red Cell Distribution Width 20.3 H Platelet Count 181 Mean Platelet Volume 10.2 Neutrophils % 63.1 Lymphocytes % 21.3 Monocytes % 9.5 Eosinophils % 5.3 Basophils % 0.4 Nucleated Red Blood Cells % 0.6 H Neutrophils # 3.4 Lymphocytes # 1.2 Monocytes # 0.5 Eosinophils # 0.3 Basophils # 0.0 Nucleated Red Blood Cells # 0.0 Sodium Level 136 Potassium Level 4.4 Chloride Level 105 Carbon Dioxide Level 24 Anion Gap 11 # Blood Urea Nitrogen 38 H Creatinine 1.21 H Glucose Level 121 Calcium Level 8.3 L Total Bilirubin 1.4 H Direct Bilirubin 0.00 Indirect Bilirubin 1.4 H Aspartate Amino Transf (AST/SGOT) 39 Alanine Aminotransferase (ALT/SGPT) 33 Alkaline Phosphatase 83 Total Protein 6.3 # Albumin 3.0 L Globulin 3.30 H Albumin/Globulin Ratio 0.90 Lactic Acid Level 1.4 Test 01/12/17 06:00 01/12/17 06:27 01/12/17 07:46 01/12/17 08:00 Blood Gas Specimen Source Blood arterial Blood arterial Arterial Blood Date Drawn 01/12/2017 6:05:03 AM 01/12/2017 8:20:32 AM Arterial Blood pH (Temp corrected) 7.405 7.385 Arterial Blood pCO2 (Temp correct) 30.9 L 36.0 Arterial Blood pO2 (Temp corrected) 64.5 L 234.1 H Arterial Blood HCO3 18.9 L 21.1 L Arterial Blood Base Excess -4.8 L -3.4 L Arterial Blood Oxygen Saturation 92.5 L 99.1 H Nik Test ACCEPTAB ACCEPTAB Arterial Blood Gas Puncture Site Right Radial Right Radial Arterial Blood Carboxyhemoglobin 0.3 0.3 Arterial Blood Methemoglobin 0.3 0.2 Blood Gas A-a O2 Differential 185.2 H 154.1 H Oxyhemoglobin Percent 91.9 L 98.6 Total Hemoglobin 11.7 L 12.5 Blood Gas Temperature 37.0 37.0 Blood Gas Respiration Rate 20.0 20.0 Blood Gas Actual Respiration Rate 20 20 Blood Gas Modality VENT - AC VENT - AC FiO2 40.0 60.0 Blood Gas Tidal Volume 450.0 450.0 Blood Gas Low PEEP Setting 5.0 5.0 Blood Gas Notified Whom Grant FOX RCP DT Blood Gas Notified Time 01/12/2017 6:15:46 AM 01/12/2017 8:37:25 AM Bedside Glucose 71 Lactic Acid Level 1.4 Test 01/12/17 08:51 01/12/17 12:23 Bedside Glucose 123 156 Medications Medications Current Medications Acetaminophen (Tylenol Tab) 650 mg Q6H PRN PO PAIN LEVEL 1-3 OR FEVER Last administered on 01/11/17t 00:23; Admin Dose 650 MG; Start 01/11/17 at 00:00 Docusate Sodium (Colace) 100 mg Q12H PRN PO CONSTIPATION; Start 01/11/17 at 00 :00 Bisacodyl (Dulcolax) 5 mg DAILY PRN PO CONSTIPATION; Start 01/11/17 at 00:00 Famotidine (Pepcid) 20 mg Q12 PO Last administered on 01/12/17 08:53; Admin Dose 20 MG; Start 01/11/17 at 00:00 Enoxaparin Sodium (Lovenox) 100 mg Q12 SC Last administered on 01/12/17 08:53 ; Admin Dose 100 MG; Start 01/11/17 at 00:00 Lorazepam (Ativan) 1 mg Q4H PRN IV AGITATION/ANXIETY Last administered on 01/12 01:53; Admin Dose 1 MG; Start 01/11/17 at 01:30 Aspirin (Halfprin) 81 mg DAILY PO Last administered on 01/12/17 08:53; Admin Dose 81 MG; Start 01/11/17 at 09:00 Benazepril HCl (Lotensin) 20 mg DAILY PO ; Start 01/11/17 at 09:00 Carvedilol (Coreg) 12.5 mg BID PO Last administered on 01/11/17 23:11; Admin Dose 12.5 MG; Start 01/11/17 at 09:00 Miscellaneous Information 1 ea NOTE XX ; Start 01/11/17 at 02:00 Glucose (Glutose) 15 gm Q15M PRN PO DECREASED GLUCOSE; Start 01/11/17 at 02:00 Glucose (Glutose) 22.5 gm Q15M PRN PO DECREASED GLUCOSE; Start 01/11/17 at 02: 00 Dextrose (D50w Syringe) 25 ml Q15M PRN IV DECREASED GLUCOSE Last administered on 01/11/17 09:01; Admin Dose 25 ML; Start 01/11/17 at 02:00 Dextrose (D50w Syringe) 50 ml Q15M PRN IV DECREASED GLUCOSE; Start 01/11/17 at 02:00 Glucagon (Glucagen) 1 mg Q15M PRN IM DECREASED GLUCOSE; Start 01/11/17 at 02: 00 Glucose 15 gm 15 gm Q15M PRN BUCCAL DECREASED GLUCOSE; Start 01/11/17 at 02:00 Norepinephrine 16 mg/Dextrose 500 ml @ 0 mls/hr TITRATE IV ; Start 01/11/17 at 15:00 Fentanyl 100 ml @ 2.5 mls/hr TITRATE IV Last administered on 01/12/17 08:53 ; Admin Dose 10 MLS/HR; Start 01/11/17 at 23:30; Status Future Hold Midazolam HCl (Versed) 50 ml @ 1 mls/hr TITRATE IV Last administered on 10:14; Admin Dose 10 MLS/HR; Start 01/12/17 at 01:30; Status Future Hold Insulin Aspart (Adult SC Insulin - Mild Algorithm)... Q4 SC Last administered on 01/12/17 12:35; Admin Dose 1 UNIT; Start 01/12/17 at 09:00 Dobutamine HCl/ Dextrose 250 ml @ 7.748 mls/ hr TITRATE IV Last administered on 01/12/17 13:41; Admin Dose 7.748 MLS/HR; Start 01/12/17 at 12:30 DAJA CROSS Jan 12, 2017 13:50
[2017-01-12] MEDS: NORepinephrine 8MG/250 ML (PMX 250 ML IV SCH (14:04)
--- NOTE | 2017-01-12 14:28 | PN ---
Date/Time of Note Date/Time of Note DATE: 01/12/17 TIME: 14:21 Assessment/Plan VTE Prophylaxis VTE Prophylaxis Intervention: LMWH Lines/Catheters IV Catheter Type (from Nrsg): Central Line Central line still needed: Yes Urinary Cath still in place: Yes Reason Cath still needed: urinary retention Assessment/Plan Chief Complaint/Hosp Course 56 yo female with ho chronic systolic CHF who presented in A Fib with RVR and acute on chronic systolic CHF exacerbation in setting of methamphetamine use, received diltiazem IV infusion then went into shock requiring vasopressors. Then developed acute hypoxic respiratory failure overnight prompting intubation Cardiogenic shock - Patient clearly in cardiogenic shock by exam and bedside US exam w very low EF /very dilated IVC and cool extremities: continue levophed and add dobutamine. Wean levophed as able - HOLD ALL SEDATIVES IF ABLE - Would benefit from afterload reduction and diuresis when hemodynamics permit Atrial Fibrillation w RVR: - Continue amiodarone Moderate-severe MR - Functional, chronic Acute respiratory failure: - Likley 2/2 cardiogenic shock and pulmonary edema - Continue MV ventilation for new via ETT - Diuresis when more hemodynamically stable DIANNA: - Likely prerenal 2/2 poor forward flow, monitor Methamphetamine use d/o - Component Technician on absitence when able ICU time > 45 minutes Problems: Subjective 24 Hr Interval Summary Free Text/Dictation Patient was intubated for respiratory distress Agitated wanting to leave yesterday evening, received sedation prior to intubation, then lots fo sedatives since Seen now is not reacting to me after reciving sedatives I did a bedside ultrasound which showed very low EF w very poor squeeze and extremely dilated IVC and R sided vasculature Exam/Review of Systems Vital Signs Vitals Vital Signs Date Time Temp Pulse Resp B/P Pulse Ox O2 Delivery O2 Flow Rate FiO2 01/12/17 13:45 101 20 97/79 100 01/12/17 13:30 40 01/12/17 13:00 Mechanical Ventilator 01/12/17 12:00 97.8 01/11/17 20:55 2.0 Intake and Output 01/11/17 01/11/17 01/12/17 14:59 22:59 06:59 Intake Total 485.70 ml 462.40 ml 725.57 ml Output Total 450 ml 470 ml 375 ml Balance 35.70 ml -7.60 ml 350.57 ml Exam Intubated, sedated On levophed + JVD Lungs clear anteriorly Abdomen obese Legs cool to touch a bit of mottling of extremities Results Result Diagram: 01/12/17 0430 01/12/17 0430 Results 24 hrs Laboratory Tests Test 01/11/17 17:33 01/11/17 18:03 01/11/17 19:40 01/11/17 19:55 Bedside Glucose 247 H 165 Creatine Kinase 37 Creatine Kinase Index 4.7 Creatinine Kinase MB (Mass) 1.75 Troponin I 0.030 Blood Gas Specimen Source Blood arterial Arterial Blood Date Drawn 01/11/2017 7:40:19 PM Arterial Blood pH (Temp corrected) 7.377 Arterial Blood pCO2 (Temp correct) 34.6 L Arterial Blood pO2 (Temp corrected) 117.5 H Arterial Blood HCO3 19.9 L Arterial Blood Base Excess -4.5 L Arterial Blood Oxygen Saturation 98.1 H Nik Test ACCEPTAB Arterial Blood Gas Puncture Site Left Radial Arterial Blood Carboxyhemoglobin 0.2 Arterial Blood Methemoglobin 0.3 Blood Gas A-a O2 Differential 41.3 H Oxyhemoglobin Percent 97.6 Total Hemoglobin 13.2 Blood Gas Temperature 37.0 Blood Gas Modality NASAL CANNULA FiO2 28.0 Blood Gas Notified Whom MA Blood Gas Notified Time 01/11/2017 7:56:52 PM Test 01/11/17 21:04 01/11/17 21:59 01/11/17 22:50 01/11/17 23:12 Sodium Level 138 Potassium Level 4.5 Chloride Level 102 Carbon Dioxide Level 23 Anion Gap 18 H Blood Urea Nitrogen 38 H Creatinine 1.17 H Glucose Level 140 # Lactic Acid Level 3.5 *H Calcium Level 8.5 Total Bilirubin 2.1 H Direct Bilirubin 0.00 Indirect Bilirubin 2.1 H Aspartate Amino Transf (AST/SGOT) 43 Alanine Aminotransferase (ALT/SGPT) 36 Alkaline Phosphatase 97 Total Protein 7.3 Albumin 3.5 Globulin 3.80 H Albumin/Globulin Ratio 0.92 White Blood Count 5.2 Red Blood Count 4.12 L Hemoglobin 11.4 L Hematocrit 37.5 Mean Corpuscular Volume 91.0 Mean Corpuscular Hemoglobin 27.7 L Mean Corpuscular Hemoglobin Concent 30.4 L Red Cell Distribution Width 20.2 H Platelet Count 219 Mean Platelet Volume 10.6 H Neutrophils % 64.6 Lymphocytes % 21.8 Monocytes % 8.0 Eosinophils % 4.8 Basophils % 0.4 Nucleated Red Blood Cells % 0.8 H Neutrophils # 3.4 Lymphocytes # 1.1 Monocytes # 0.4 Eosinophils # 0.3 Basophils # 0.0 Nucleated Red Blood Cells # 0.0 Blood Gas Specimen Source Blood arterial Arterial Blood Date Drawn 01/11/2017 10:55:54 PM Arterial Blood pH (Temp corrected) 7.259 *L Arterial Blood pCO2 (Temp correct) 48.8 H Arterial Blood pO2 (Temp corrected) 91.1 Arterial Blood HCO3 21.4 L Arterial Blood Base Excess -5.9 L Arterial Blood Oxygen Saturation 95.4 Nik Test ACCEPTAB Arterial Blood Gas Puncture Site Right Radial Arterial Blood Carboxyhemoglobin 0.4 Arterial Blood Methemoglobin 0.3 Blood Gas A-a O2 Differential 573.1 H Oxyhemoglobin Percent 94.7 Total Hemoglobin 13.9 Blood Gas Temperature 37.0 Blood Gas Respiration Rate 16.0 Blood Gas Actual Respiration Rate 20 Blood Gas Modality VENT - AC FiO2 100.0 Blood Gas Tidal Volume 450.0 Blood Gas Low PEEP Setting 5.0 Blood Gas Critical Value Read Back Grant SHAH RN Blood Gas Notified Whom MA Blood Gas Notified Time 01/11/2017 11:41:30 PM Bedside Glucose 135 Test 01/12/17 00:36 01/12/17 02:54 01/12/17 04:30 01/12/17 05:00 Creatine Kinase 30 < 20 L Creatine Kinase Index 4.9 Creatinine Kinase MB (Mass) 1.47 1.15 Troponin I 0.028 0.034 Bedside Glucose 100 White Blood Count 5.5 Red Blood Count 3.73 L Hemoglobin 10.5 L Hematocrit 33.7 L Mean Corpuscular Volume 90.3 Mean Corpuscular Hemoglobin 28.2 L Mean Corpuscular Hemoglobin Concent 31.2 L Red Cell Distribution Width 20.3 H Platelet Count 181 Mean Platelet Volume 10.2 Neutrophils % 63.1 Lymphocytes % 21.3 Monocytes % 9.5 Eosinophils % 5.3 Basophils % 0.4 Nucleated Red Blood Cells % 0.6 H Neutrophils # 3.4 Lymphocytes # 1.2 Monocytes # 0.5 Eosinophils # 0.3 Basophils # 0.0 Nucleated Red Blood Cells # 0.0 Sodium Level 136 Potassium Level 4.4 Chloride Level 105 Carbon Dioxide Level 24 Anion Gap 11 # Blood Urea Nitrogen 38 H Creatinine 1.21 H Glucose Level 121 Calcium Level 8.3 L Total Bilirubin 1.4 H Direct Bilirubin 0.00 Indirect Bilirubin 1.4 H Aspartate Amino Transf (AST/SGOT) 39 Alanine Aminotransferase (ALT/SGPT) 33 Alkaline Phosphatase 83 Total Protein 6.3 # Albumin 3.0 L Globulin 3.30 H Albumin/Globulin Ratio 0.90 Lactic Acid Level 1.4 Test 01/12/17 06:00 01/12/17 06:27 01/12/17 07:46 01/12/17 08:00 Blood Gas Specimen Source Blood arterial Blood arterial Arterial Blood Date Drawn 01/12/2017 6:05:03 AM 01/12/2017 8:20:32 AM Arterial Blood pH (Temp corrected) 7.405 7.385 Arterial Blood pCO2 (Temp correct) 30.9 L 36.0 Arterial Blood pO2 (Temp corrected) 64.5 L 234.1 H Arterial Blood HCO3 18.9 L 21.1 L Arterial Blood Base Excess -4.8 L -3.4 L Arterial Blood Oxygen Saturation 92.5 L 99.1 H Nik Test ACCEPTAB ACCEPTAB Arterial Blood Gas Puncture Site Right Radial Right Radial Arterial Blood Carboxyhemoglobin 0.3 0.3 Arterial Blood Methemoglobin 0.3 0.2 Blood Gas A-a O2 Differential 185.2 H 154.1 H Oxyhemoglobin Percent 91.9 L 98.6 Total Hemoglobin 11.7 L 12.5 Blood Gas Temperature 37.0 37.0 Blood Gas Respiration Rate 20.0 20.0 Blood Gas Actual Respiration Rate 20 20 Blood Gas Modality VENT - AC VENT - AC FiO2 40.0 60.0 Blood Gas Tidal Volume 450.0 450.0 Blood Gas Low PEEP Setting 5.0 5.0 Blood Gas Notified Whom Grant FOX RCP DT Blood Gas Notified Time 01/12/2017 6:15:46 AM 01/12/2017 8:37:25 AM Bedside Glucose 71 Lactic Acid Level 1.4 Test 01/12/17 08:51 01/12/17 12:23 Bedside Glucose 123 156 Medications Medications Current Medications Acetaminophen (Tylenol Tab) 650 mg Q6H PRN PO PAIN LEVEL 1-3 OR FEVER Last administered on 01/11/17t 00:23; Admin Dose 650 MG; Start 01/11/17 at 00:00 Docusate Sodium (Colace) 100 mg Q12H PRN PO CONSTIPATION; Start 01/11/17 at 00 :00 Bisacodyl (Dulcolax) 5 mg DAILY PRN PO CONSTIPATION; Start 01/11/17 at 00:00 Famotidine (Pepcid) 20 mg Q12 PO Last administered on 01/12/17 08:53; Admin Dose 20 MG; Start 01/11/17 at 00:00 Enoxaparin Sodium (Lovenox) 100 mg Q12 SC Last administered on 01/12/17 08:53 ; Admin Dose 100 MG; Start 01/11/17 at 00:00 Lorazepam (Ativan) 1 mg Q4H PRN IV AGITATION/ANXIETY Last administered on 01/12 01:53; Admin Dose 1 MG; Start 01/11/17 at 01:30 Aspirin (Halfprin) 81 mg DAILY PO Last administered on 01/12/17 08:53; Admin Dose 81 MG; Start 01/11/17 at 09:00 Benazepril HCl (Lotensin) 20 mg DAILY PO ; Start 01/11/17 at 09:00 Carvedilol (Coreg) 12.5 mg BID PO Last administered on 01/11/17 23:11; Admin Dose 12.5 MG; Start 01/11/17 at 09:00 Miscellaneous Information 1 ea NOTE XX ; Start 01/11/17 at 02:00 Glucose (Glutose) 15 gm Q15M PRN PO DECREASED GLUCOSE; Start 01/11/17 at 02:00 Glucose (Glutose) 22.5 gm Q15M PRN PO DECREASED GLUCOSE; Start 01/11/17 at 02: 00 Dextrose (D50w Syringe) 25 ml Q15M PRN IV DECREASED GLUCOSE Last administered on 01/11/17 09:01; Admin Dose 25 ML; Start 01/11/17 at 02:00 Dextrose (D50w Syringe) 50 ml Q15M PRN IV DECREASED GLUCOSE; Start 01/11/17 at 02:00 Glucagon (Glucagen) 1 mg Q15M PRN IM DECREASED GLUCOSE; Start 01/11/17 at 02: 00 Glucose 15 gm 15 gm Q15M PRN BUCCAL DECREASED GLUCOSE; Start 01/11/17 at 02:00 Norepinephrine 250 ml @ 1.875 mls/ hr TITRATE IV Last administered on 14:04; Admin Dose 52.5 MLS/HR; Start 01/11/17 at 09:00; Stop 01/12/17 at 18:00 Norepinephrine 16 mg/Dextrose 500 ml @ 0 mls/hr TITRATE IV ; Start 01/11/17 at 15:00 Fentanyl 100 ml @ 2.5 mls/hr TITRATE IV Last administered on 01/12/17 08:53 ; Admin Dose 10 MLS/HR; Start 01/11/17 at 23:30; Status Future Hold Midazolam HCl (Versed) 50 ml @ 1 mls/hr TITRATE IV Last administered on 10:14; Admin Dose 10 MLS/HR; Start 01/12/17 at 01:30; Status Future Hold Insulin Aspart (Adult SC Insulin - Mild Algorithm)... Q4 SC Last administered on 01/12/17 12:35; Admin Dose 1 UNIT; Start 01/12/17 at 09:00 Dobutamine HCl/ Dextrose 250 ml @ 7.748 mls/ hr TITRATE IV Last administered on 01/12/17 13:41; Admin Dose 7.748 MLS/HR; Start 01/12/17 at 12:30 Amiodarone HCl (Cordarone) 200 mg TID PO ; Start 01/12/17 at 21:00 CORNELIO MONTERO MD Jan 12, 2017 14:28
[2017-01-12] MEDS: AMIODARONE 200 MG TAB PO SCH (21:43)
--- NOTE | 2017-01-12 21:57 | QN ---
Documentation Comment Called to ICU room 114 on the night of 01/11 for intubation and central line. Patient was decompensation and going into shock with respiratory distress. ET intubation note: Preoxygenated with bag/mask to 100%. Etomidate 20 and Rocuronium 100 were used for RSI. 7.5 size ET tube was easily introduced through visualized cords using a MAC 4 blade. Confirmed with bilat breath sounds and ETCO2 color change. Saturation 100%. No complications. Ultrasound guided Central line note, R femoral: prepped and draped in sterile fashion. Sterile technique was used to easily insert a 7 Setswana triple lumen line into the R femoral vein under ultrasound guidance using Seldinger technique. All ports with good blood return and flow. Tolerated well with no complications. VINICIO SHANKAR DO Jan 12, 2017 21:57
[2017-01-13] VITALS (97 sets, daily range): BP systolic 81–125; BP diastolic 58–110; PULSE 84–142; RESP 18–32
[2017-01-13] MEDS: DOBUTamine/D5W 2 MG/ML DRIP 250 ML IV SCH ×3 (00:02→13:19)
[2017-01-13] MEDS: Insulin NOVOLOG SS MILD Algorithm (NPO/TPN/ENTERAL FEEDS) SC SCH ×6 (01:00→20:18)
--- NOTE | 2017-01-13 04:17 | CONS ---
DATE OF ADMISSION: 01/10/2017 DATE OF CONSULTATION: 01/12/2017 PULMONARY CONSULTATION PRIMARY PHYSICIAN: Dr. Lan REASON FOR CONSULTATION: Respiratory failure. HISTORY OF PRESENT ILLNESS: Briefly, this is a 56-year-old lady with a history of nonischemic cardi omyopathy possibly due to substance abuse with associated severely decreased left ventricular ejecti on fraction of 15% to 20%, hypertension, substance abuse with methamphetamines and marijuana, hyperl ipidemia, who was admitted on 01/10/2017 with atrial fibrillation and flutter, with rapid ventricula r response and hypotension. Her course overnight was complicated by worsening hypercapnic/hypoxemic respiratory failure requiring intubation. She has since been on hemodynamic support with Levophed drip and more recently has been started on dobutamine drip. She remains currently intubated and sed ated on mechanical ventilation. PAST MEDICAL HISTORY: As noted in history of present illness. In addition, history of diabetes, po ssible COPD. PAST SURGICAL HISTORY: No known surgeries. ALLERGIES: NONE. SOCIAL HISTORY: History of amphetamine use, as well as marijuana use, prior tobacco, no alcohol use noted. FAMILY HISTORY: Unknown and unable to determine. REVIEW OF SYSTEMS: Unable to obtain due to patient being sedated on mechanical ventilation. PHYSICAL EXAMINATION: VITAL SIGNS: Heart rate is 99 and irregular, blood pressure is 97/79 supported on Levophed and dobu tamine drips, oxygen saturation 100% on 40% FIO2. HEENT: Normocephalic, atraumatic. ET tube is in place. NECK: Supple. Jugular venous pressures are slightly elevated. CARDIOVASCULAR: Irregular S1 and S2 with a II/ systolic murmur heard best at the apex. CHEST: There are subtle basilar crackles. EXTREMITIES: Appear warm with trace lower extremity edema. No cyanosis, no clubbing. LABORATORY DATA: ABG latest pH was 7.38, PaCO2 is 36, pO2 is 234, BUN is 38, creatinine is 1.21. W BC is 5.5, hemoglobin is 10.5. Chest x-ray shows cardiomegaly with ET tube in place, about 2.5 cm a erin the stephen. IMPRESSION: 1. Shock, most likely a component of cardiogenic, in view of her underlying cardiomyopathy. 2. Respiratory failure secondary to her underlying cardiomyopathy and volume overload. 3. Atrial flutter with variable response. 4. Congestive heart failure. 5. Acute kidney injury, likely cardiorenal. 6. Substance abuse with methamphetamines. 7. Diabetes. RECOMMENDATIONS: 1. Hemodynamics: Support with Levophed and dobutamine with efforts to optimize afterload once rahul ent is off hemodynamic support. Additionally, would benefit from further diuresis. 2. If there is no improvement, she may benefit from a [place]-Claritza catheter insertion with optimizatio n of hemodynamics. 3. Vent support with plans to wean as tolerated. Dictated By: NICA GAN MD NK/NTS Conf#: [id number] DID#: [id number] CC: Edyta; KB CAMPO MD; KELLY DEL CID MD;*[facility]*
[2017-01-13] MEDS: FENTAnyl (DRIP) 1000 mcg/100mL 100 ML IV SCH ×2 (05:11→22:02)
[2017-01-13] MEDS: MIDAZOLAM (DRIP) 50 mg/50 mL 50 ML IV SCH ×3 (05:22→20:33)
[2017-01-13 05:25] LABS: BASOPHILS % 0.3 % (0.0-2.0); EOSINOPHILS # 0.3 10^3/ul (0.0-0.5); EOSINOPHILS % 5.7 % (0.0-7.0); HEMOGLOBIN 9.9 g/dl (12.0-16.0); LYMPHOCYTES # 0.9 10^3/ul (0.8-2.9); LYMPHOCYTES % 16.1 % (15.0-51.0); MEAN CORPUSCULAR HEMOGLOBIN 28.6 pg (29.0-33.0); MEAN CORPUSCULAR HGB CONC 31.9 g/dl (32.0-37.0); MEAN CORPUSCULAR VOLUME 89.6 fl (82.0-101.0); MEAN PLATELET VOLUME 9.6 fl (7.4-10.4); MONOCYTE # 0.4 10^3/ul (0.3-0.9); MONOCYTES % 7.4 % (0.0-11.0); NEUTROPHIL # 4.1 10^3/ul (1.6-7.5); NEUTROPHILS % 70.3 % (39.0-77.0); PLATELET COUNT 166 10^3/UL (140-415); RED BLOOD COUNT 3.46 10^6/ul (4.20-5.40); RED CELL DISTRIBUTION WIDTH 19.7 % (11.5-14.5); WHITE BLOOD COUNT 5.8 10^3/ul (4.8-10.8)
[2017-01-13 06:00] LABS: ALBUMIN 2.7 g/dl (3.3-4.9); ALBUMIN/GLOBULIN RATIO 0.81; BILIRUBIN,INDIRECT 1.2 mg/dl (0-1.1); BILIRUBIN,TOTAL 1.2 mg/dl (0.2-1.3); CALCIUM 8.3 mg/dl (8.4-10.2); CREATININE 0.96 mg/dl (0.44-1.00); POTASSIUM 3.7 mmol/L (3.5-5.1)
[2017-01-13] MEDS: FUROSEMIDE 40 MG TAB PO SCH ×2 (06:25→18:20)
[2017-01-13 06:41] LABS: AADO2 Arterial 144.8 mmHg (7.0-24.0); Arterial Base Excess -1.1 mmol/L (-3.0-3); Arterial COHb 0.5 % (0.0-3.0); Arterial HCO3 23.9 mmol/L (22.0-26.0); Arterial MetHb 0.4 % (0.0-1.5); Arterial Total Hemglobin 12.1 g/dl (12.0-18.0); MODE VENT - AC
--- NOTE | 2017-01-13 07:11 | RADRPT ---
PROCEDURE: XR Chest. CLINICAL INDICATION: Shortness of breath. TECHNIQUE: Single frontal view. COMPARISON: 01/11/2017. FINDINGS: The endotracheal tube and nasogastric tube remain in satisfactory position. There is left basilar at electasis or pneumonia, unchanged. There is mild pulmonary edema, unchanged. The heart is enlarged. There is no pleural effusion. There is no pneumothorax. IMPRESSION: 1. Endotracheal tube and nasogastric tube in satisfactory position. 2. Mild left basilar atelectasis or pneumonia, unchanged. 3. Mild pulmonary edema, unchanged. 4. No change from 01/11/2017. RPTAT: QQ .Thomas Murphy MD, MD Date Time Electronically viewed and signed by .Thomas Murphy MD, MD on 01/13/2017 07:11 .R/
[2017-01-13] MEDS: BENAZEPRIL 20 MG TAB PO SCH (09:00)
[2017-01-13] MEDS: PIPER-TAZO 3.375 GM IV (PMX) 100 ML IVPB SCH ×3 (09:13→22:09)
[2017-01-13] MEDS: FAMOTIDINE 20 MG TAB PO SCH ×2 (09:13→20:08)
[2017-01-13] MEDS: AMIODARONE 200 MG TAB PO SCH ×3 (09:13→20:08)
[2017-01-13] MEDS: ASPIRIN (EC) 81 MG TAB PO SCH (09:13)
[2017-01-13] MEDS: ENOXAPARIN 100 MG/ML SYG SC SCH ×2 (09:15→20:16)
--- NOTE | 2017-01-13 12:35 | CONS ---
Date/Time of Note Date/Time of Note DATE: 01/13/17 TIME: 12:28 Assessment/Plan Assessment/Plan Chief Complaint/Hosp Course IMPRESSION 1. Hypotension/shock, currently on Levophed pressor support. 2. Atrial flutter with variable response. 3. History of cardiomyopathy with severely depressed left ventricular ejection fraction. 4. Congestive heart failure by chest x-ray, systolic by prior echo, acute on chronic. 5. Substance abuse including methamphetamines. 6. History of cerebrovascular accident. 7. Diabetes mellitus. 8. History of chronic obstructive pulmonary disease. Recc: -ICU tele monitoring -Wean levo as tolerated -Wean down dobutamine given excessive tachycardia and associated worsening hypotension and then once BP/HR stabilized would resume attempting to come off of levophed as possible -Continue now PO and also completed full IV load in attempt to return to SR and mitigate tachycardia from beta effects -Continue asa/lasix and follow volume status closely Problems: Consultation Date/Type/Reason Admit Date/Time Jan 10, 2017 at 22:38 Initial Consult Date 01/11/2017 Type of Consultation: cardiology Reason for Consultation CHF/AFL Referring Provider: KB CAMPO Exam/Review of Systems Vital Signs Vitals Vital Signs Date Time Temp Pulse Resp B/P Pulse Ox O2 Delivery O2 Flow Rate FiO2 01/13/17 11:15 128 20 96/60 100 01/13/17 11:00 Mechanical Ventilator 01/13/17 09:44 40 01/13/17 08:00 98.2 01/11/17 20:55 2.0 Intake and Output 01/12/17 01/12/17 01/13/17 15:00 23:00 07:00 Intake Total 479.05 ml 784.55 ml 481.47 ml Output Total 340 ml 700 ml 615 ml Balance 139.05 ml 84.55 ml -133.53 ml Exam Review of Systems: CONSTITUTIONAL: No fevers, chills. PULMONARY: intubated CARDIOVASCULAR: No obvious chest pain/palpitations GASTROINTESTINAL: No nausea/vomiting. GENITOURINARY: No hematuria/dysuria. MUSCULOSKELETAL: No obvious myagias/arthalgias. PSYCHIATRIC: The patient denies depression. NEUROLOGIC: No weakness Constitutional: other (intubated) Psych: no complaints Head: normocephalic ENMT: mucosa pink and moist Neck: jvd (9 cm watwer), supple Respiratory: other (upper airway rhoncherous) Cardiovascular: regular rate and rhythm Gastrointestinal: non-tender, soft Musculoskeletal: muscle tone (normal) Extremities: edema (normal) Neurological: other (sedated) Results Result Diagram: 01/13/17 0449 01/13/17 0449 Results 24 hrs Laboratory Tests Test 01/12/17 17:05 01/12/17 20:45 01/13/17 01:07 01/13/17 04:30 Bedside Glucose 176 139 106 Lactic Acid Level 1.0 Test 01/13/17 04:49 01/13/17 05:00 01/13/17 05:10 01/13/17 09:12 White Blood Count 5.8 Red Blood Count 3.46 L Hemoglobin 9.9 L Hematocrit 31.0 L Mean Corpuscular Volume 89.6 Mean Corpuscular Hemoglobin 28.6 L Mean Corpuscular Hemoglobin Concent 31.9 L Red Cell Distribution Width 19.7 H Platelet Count 166 Mean Platelet Volume 9.6 Neutrophils % 70.3 Lymphocytes % 16.1 Monocytes % 7.4 Eosinophils % 5.7 Basophils % 0.3 Nucleated Red Blood Cells % 0.0 Neutrophils # 4.1 Lymphocytes # 0.9 Monocytes # 0.4 Eosinophils # 0.3 Basophils # 0.0 Nucleated Red Blood Cells # 0.0 Sodium Level 140 Potassium Level 3.7 Chloride Level 109 Carbon Dioxide Level 26 Anion Gap 9 Blood Urea Nitrogen 23 #H Creatinine 0.96 Glucose Level 91 Calcium Level 8.3 L Total Bilirubin 1.2 Direct Bilirubin 0.00 Indirect Bilirubin 1.2 H Aspartate Amino Transf (AST/SGOT) 38 Alanine Aminotransferase (ALT/SGPT) 45 Alkaline Phosphatase 78 Total Protein 6.0 L Albumin 2.7 L Globulin 3.30 H Albumin/Globulin Ratio 0.81 Blood Gas Specimen Source Blood arterial Arterial Blood Date Drawn 01/13/2017 5:03:32 AM Arterial Blood pH (Temp corrected) 7.386 Arterial Blood pCO2 (Temp correct) 40.7 Arterial Blood pO2 (Temp corrected) 93.6 Arterial Blood HCO3 23.9 Arterial Blood Base Excess -1.1 Arterial Blood Oxygen Saturation 96.9 Nik Test N/A Arterial Blood Gas Puncture Site Right Brachial Arterial Blood Carboxyhemoglobin 0.5 Arterial Blood Methemoglobin 0.4 Blood Gas A-a O2 Differential 144.8 H Oxyhemoglobin Percent 96.0 Total Hemoglobin 12.1 Blood Gas Temperature 37.0 Blood Gas Respiration Rate 20.0 Blood Gas Actual Respiration Rate 20 Blood Gas Modality VENT - AC FiO2 40.0 Blood Gas Tidal Volume 450.0 Blood Gas Low PEEP Setting 5.0 Blood Gas Inspiratory Pressure 31.0 Blood Gas Notified Whom MM Blood Gas Notified Time 01/13/2017 5:22:47 AM Bedside Glucose 78 76 Medications Medications Current Medications Acetaminophen (Tylenol Tab) 650 mg Q6H PRN PO PAIN LEVEL 1-3 OR FEVER Last administered on 01/11/17 00:23; Admin Dose 650 MG; Start 01/11/17 at 00:00 Docusate Sodium (Colace) 100 mg Q12H PRN PO CONSTIPATION; Start 01/11/17 at 00 :00 Bisacodyl (Dulcolax) 5 mg DAILY PRN PO CONSTIPATION; Start 01/11/17 at 00:00 Famotidine (Pepcid) 20 mg Q12 PO Last administered on 01/13/17 09:13; Admin Dose 20 MG; Start 01/11/17 at 00:00 Enoxaparin Sodium (Lovenox) 100 mg Q12 SC Last administered on 01/13/17 09:15 ; Admin Dose 100 MG; Start 01/11/17 at 00:00 Lorazepam (Ativan) 1 mg Q4H PRN IV AGITATION/ANXIETY Last administered on 01/12 23:00; Admin Dose 1 MG; Start 01/11/17 at 01:30 Aspirin (Halfprin) 81 mg DAILY PO Last administered on 01/13/17 09:13; Admin Dose 81 MG; Start 01/11/17 at 09:00 Benazepril HCl (Lotensin) 20 mg DAILY PO ; Start 01/11/17 at 09:00 Miscellaneous Information 1 ea NOTE XX ; Start 01/11/17 at 02:00 Glucose (Glutose) 15 gm Q15M PRN PO DECREASED GLUCOSE; Start 01/11/17 at 02:00 Glucose (Glutose) 22.5 gm Q15M PRN PO DECREASED GLUCOSE; Start 01/11/17 at 02: 00 Dextrose (D50w Syringe) 25 ml Q15M PRN IV DECREASED GLUCOSE Last administered on 01/11/17 09:01; Admin Dose 25 ML; Start 01/11/17 at 02:00 Dextrose (D50w Syringe) 50 ml Q15M PRN IV DECREASED GLUCOSE; Start 01/11/17 at 02:00 Glucagon (Glucagen) 1 mg Q15M PRN IM DECREASED GLUCOSE; Start 01/11/17 at 02: 00 Glucose 15 gm 15 gm Q15M PRN BUCCAL DECREASED GLUCOSE; Start 01/11/17 at 02:00 Norepinephrine 16 mg/Dextrose 500 ml @ 0 mls/hr TITRATE IV Last administered on 01/12/17 19:29; Admin Dose 37.5 MLS/HR; Start 01/11/17 at 15:00 Fentanyl 100 ml @ 2.5 mls/hr TITRATE IV Last administered on 01/13/17 05:11 ; Admin Dose 5 MLS/HR; Start 01/11/17 at 23:30; Status Future hold Midazolam HCl (Versed) 50 ml @ 1 mls/hr TITRATE IV Last administered on 05:22; Admin Dose 5 MLS/HR; Start 01/12/17 at 01:30; Status Future hold Insulin Aspart (Adult SC Insulin - Mild Algorithm)... Q4 SC Last administered on 01/12/17 17:28; Admin Dose 1 UNIT; Start 01/12/17 at 09:00 Dobutamine HCl/ Dextrose 250 ml @ 7.748 mls/ hr TITRATE IV Last administered on 01/13/17 06:59; Admin Dose 37.188 MLS/HR; Start 01/12/17 at 12:30 Amiodarone HCl 200 mg 200 mg TID PO Last administered on 01/13/17 09:13; Admin Dose 200 MG; Start 01/12/17 at 21:00 Piperacillin Sod/ Tazobactam Sod (Zosyn 3.375gm/ 100 ml (Pmx)) 100 ml @ 200 mls /hr Q8 IVPB Last administered on 01/13/17 09:13; Admin Dose 200 MLS/HR; Start 01/13/17 at 08:00 DAJA CROSS Jan 13, 2017 12:35
[2017-01-13] MEDS ORDERED: DIGOXIN 500 MCG INJ IV ONE (13:00)
--- NOTE | 2017-01-13 13:58 | CONS ---
Date/Time of Note Date/Time of Note DATE: 01/13/17 TIME: 13:54 Consult Date/Type/Reason Admit Date/Time Jan 10, 2017 at 22:38 Initial Consult Date Type of Consultation: Pulm/CCM Ordering Provider: KB CAMPO Subjective No events. Remains sedated on MV. On levophed and dobutamine gtt. Objective Vital Signs Date Time Temp Pulse Resp B/P Pulse Ox O2 Delivery O2 Flow Rate FiO2 01/13/17 13:00 117 20 89/63 98 Mechanical Ventilator 01/13/17 12:00 97.6 01/13/17 09:44 40 01/11/17 20:55 2.0 Intake and Output 01/12/17 01/12/17 01/13/17 15:00 23:00 07:00 Intake Total 479.05 ml 784.55 ml 481.47 ml Output Total 340 ml 700 ml 615 ml Balance 139.05 ml 84.55 ml -133.53 ml Exam HEENT: Normocephalic, atraumatic. ET tube is in place. NECK: Supple. Jugular venous pressures are slightly elevated. CARDIOVASCULAR: Irregular S1 and S2 with a II/ systolic murmur heard best at the apex. CHEST: There are subtle basilar crackles. EXTREMITIES: Appear warm with trace lower extremity edema. No cyanosis, no clubbing. Results/Medications Result Diagram: 01/13/17 0449 01/13/17 0449 Results 24 hrs Laboratory Tests Test 01/12/17 17:05 01/12/17 20:45 01/13/17 01:07 01/13/17 04:30 Bedside Glucose 176 139 106 Lactic Acid Level 1.0 Test 01/13/17 04:49 01/13/17 05:00 01/13/17 05:10 01/13/17 09:12 White Blood Count 5.8 Red Blood Count 3.46 L Hemoglobin 9.9 L Hematocrit 31.0 L Mean Corpuscular Volume 89.6 Mean Corpuscular Hemoglobin 28.6 L Mean Corpuscular Hemoglobin Concent 31.9 L Red Cell Distribution Width 19.7 H Platelet Count 166 Mean Platelet Volume 9.6 Neutrophils % 70.3 Lymphocytes % 16.1 Monocytes % 7.4 Eosinophils % 5.7 Basophils % 0.3 Nucleated Red Blood Cells % 0.0 Neutrophils # 4.1 Lymphocytes # 0.9 Monocytes # 0.4 Eosinophils # 0.3 Basophils # 0.0 Nucleated Red Blood Cells # 0.0 Sodium Level 140 Potassium Level 3.7 Chloride Level 109 Carbon Dioxide Level 26 Anion Gap 9 Blood Urea Nitrogen 23 #H Creatinine 0.96 Glucose Level 91 Calcium Level 8.3 L Total Bilirubin 1.2 Direct Bilirubin 0.00 Indirect Bilirubin 1.2 H Aspartate Amino Transf (AST/SGOT) 38 Alanine Aminotransferase (ALT/SGPT) 45 Alkaline Phosphatase 78 Total Protein 6.0 L Albumin 2.7 L Globulin 3.30 H Albumin/Globulin Ratio 0.81 Blood Gas Specimen Source Blood arterial Arterial Blood Date Drawn 01/13/2017 5:03:32 AM Arterial Blood pH (Temp corrected) 7.386 Arterial Blood pCO2 (Temp correct) 40.7 Arterial Blood pO2 (Temp corrected) 93.6 Arterial Blood HCO3 23.9 Arterial Blood Base Excess -1.1 Arterial Blood Oxygen Saturation 96.9 Nik Test N/A Arterial Blood Gas Puncture Site Right Brachial Arterial Blood Carboxyhemoglobin 0.5 Arterial Blood Methemoglobin 0.4 Blood Gas A-a O2 Differential 144.8 H Oxyhemoglobin Percent 96.0 Total Hemoglobin 12.1 Blood Gas Temperature 37.0 Blood Gas Respiration Rate 20.0 Blood Gas Actual Respiration Rate 20 Blood Gas Modality VENT - AC FiO2 40.0 Blood Gas Tidal Volume 450.0 Blood Gas Low PEEP Setting 5.0 Blood Gas Inspiratory Pressure 31.0 Blood Gas Notified Whom MM Blood Gas Notified Time 01/13/2017 5:22:47 AM Bedside Glucose 78 76 Test 01/13/17 12:41 Bedside Glucose 84 Medications Current Medications Acetaminophen (Tylenol Tab) 650 mg Q6H PRN PO PAIN LEVEL 1-3 OR FEVER Last administered on 01/11/17 00:23; Admin Dose 650 MG; Start 01/11/17 at 00:00 Docusate Sodium (Colace) 100 mg Q12H PRN PO CONSTIPATION; Start 01/11/17 at 00 :00 Bisacodyl (Dulcolax) 5 mg DAILY PRN PO CONSTIPATION; Start 01/11/17 at 00:00 Famotidine (Pepcid) 20 mg Q12 PO Last administered on 01/13/17 09:13; Admin Dose 20 MG; Start 01/11/17 at 00:00 Enoxaparin Sodium (Lovenox) 100 mg Q12 SC Last administered on 01/13/17 09:15 ; Admin Dose 100 MG; Start 01/11/17 at 00:00 Lorazepam (Ativan) 1 mg Q4H PRN IV AGITATION/ANXIETY Last administered on 01/12 23:00; Admin Dose 1 MG; Start 01/11/17 at 01:30 Aspirin (Halfprin) 81 mg DAILY PO Last administered on 01/13/17 09:13; Admin Dose 81 MG; Start 01/11/17 at 09:00 Benazepril HCl (Lotensin) 20 mg DAILY PO ; Start 01/11/17 at 09:00 Miscellaneous Information 1 ea NOTE XX ; Start 01/11/17 at 02:00 Glucose (Glutose) 15 gm Q15M PRN PO DECREASED GLUCOSE; Start 01/11/17 at 02:00 Glucose (Glutose) 22.5 gm Q15M PRN PO DECREASED GLUCOSE; Start 01/11/17 at 02: 00 Dextrose (D50w Syringe) 25 ml Q15M PRN IV DECREASED GLUCOSE Last administered on 01/11/17 09:01; Admin Dose 25 ML; Start 01/11/17 at 02:00 Dextrose (D50w Syringe) 50 ml Q15M PRN IV DECREASED GLUCOSE; Start 01/11/17 at 02:00 Glucagon (Glucagen) 1 mg Q15M PRN IM DECREASED GLUCOSE; Start 01/11/17 at 02: 00 Glucose 15 gm 15 gm Q15M PRN BUCCAL DECREASED GLUCOSE; Start 01/11/17 at 02:00 Norepinephrine 16 mg/Dextrose 500 ml @ 0 mls/hr TITRATE IV Last administered on 01/12/17 19:29; Admin Dose 37.5 MLS/HR; Start 01/11/17 at 15:00 Fentanyl 100 ml @ 2.5 mls/hr TITRATE IV Last administered on 01/13/17 05:11 ; Admin Dose 5 MLS/HR; Start 01/11/17 at 23:30; Status Future hold Midazolam HCl (Versed) 50 ml @ 1 mls/hr TITRATE IV Last administered on 05:22; Admin Dose 5 MLS/HR; Start 01/12/17 at 01:30; Status Future hold Insulin Aspart (Adult SC Insulin - Mild Algorithm)... Q4 SC Last administered on 01/12/17 17:28; Admin Dose 1 UNIT; Start 01/12/17 at 09:00 Dobutamine HCl/ Dextrose 250 ml @ 7.748 mls/ hr TITRATE IV Last administered on 01/13/17 13:19; Admin Dose 34.089 MLS/HR; Start 01/12/17 at 12:30 Amiodarone HCl 200 mg 200 mg TID PO Last administered on 01/13/17 13:13; Admin Dose 200 MG; Start 01/12/17 at 21:00 Piperacillin Sod/ Tazobactam Sod (Zosyn 3.375gm/ 100 ml (Pmx)) 100 ml @ 200 mls /hr Q8 IVPB Last administered on 01/13/17 13:14; Admin Dose 200 MLS/HR; Start 01/13/17 at 08:00 Assessment/Plan Additional Assessment/Plan IMP: 1. Shock, most likely a component of cardiogenic, in view of her underlying cardiomyopathy, however, cannot exclude a co-existing distributive cause. + Cx for G+ rods (unclear significance) 2. Respiratory failure secondary to her underlying cardiomyopathy and volume overload. 3. Atrial flutter with variable response. 4. Congestive heart failure. 5. Acute kidney injury, likely cardiorenal. 6. Substance abuse with methamphetamines. 7. Diabetes. RECOMMENDATIONS: 1. Vent support 2. Titrate off dobutamine gtt 3. Continue levophed gtt to MAP > 65 4. Gentle diuresis 5. Repeat cultures 6. Cont abx 35 min cc time NICA GAN MD Jan 13, 2017 13:58
[2017-01-13] MEDS ORDERED: FUROSEMIDE 20 MG INJ IV ONE (14:00)
--- NOTE | 2017-01-13 15:00 | PN ---
Date/Time of Note Date/Time of Note DATE: 01/13/17 TIME: 14:58 Assessment/Plan VTE Prophylaxis VTE Prophylaxis Intervention: LMWH Lines/Catheters IV Catheter Type (from Nrsg): Central Line Central line still needed: Yes Urinary Cath still in place: Yes Reason Cath still needed: urinary retention, other (indicate) Assessment/Plan Chief Complaint/Hosp Course 56 yo female with ho chronic systolic CHF who presented in A Fib with RVR and acute on chronic systolic CHF exacerbation in setting of methamphetamine use, received diltiazem IV infusion then went into shock requiring vasopressors. Then developed acute hypoxic respiratory failure overnight prompting intubation Cardiogenic shock - Patient with cardiogenic shock by exam and bedside US exam w very low EF, very dilated IVC, and cool extremities - Wean dobutamien/levohped as able - Lowest possible dose of sedation as needed - Continue diuresis Atrial Fibrillation w RVR: - Continue amiodarone Moderate-severe MR - Functional, chronic Acute respiratory failure: - Likley 2/2 cardiogenic shock and pulmonary edema - Continue MV ventilation for new via ETT - Diuresis when more hemodynamically stable DIANNA: - Likely prerenal 2/2 poor forward flow, monitor, resolved with better hemodynamics Methamphetamine use d/o - Nurse Advisor on absitence when able ICU time > 45 minutes Problems: Subjective 24 Hr Interval Summary Free Text/Dictation Weaning down levophed and dobutamine but both still requied Good UOP to lasix DIANNA resolved Remains intubated Exam/Review of Systems Vital Signs Vitals Vital Signs Date Time Temp Pulse Resp B/P Pulse Ox O2 Delivery O2 Flow Rate FiO2 01/13/17 13:45 108 20 92/74 100 01/13/17 13:00 Mechanical Ventilator 01/13/17 12:41 40 01/13/17 12:00 97.6 01/11/17 20:55 2.0 Intake and Output 01/12/17 01/12/17 01/13/17 15:00 23:00 07:00 Intake Total 479.05 ml 784.55 ml 481.47 ml Output Total 340 ml 700 ml 615 ml Balance 139.05 ml 84.55 ml -133.53 ml Exam Intubated, sedated No response to me today Clear lungs anteriorly Results Result Diagram: 01/13/17 0449 01/13/17 0449 Results 24 hrs Laboratory Tests Test 01/12/17 17:05 01/12/17 20:45 01/13/17 01:07 01/13/17 04:30 Bedside Glucose 176 139 106 Lactic Acid Level 1.0 Test 01/13/17 04:49 01/13/17 05:00 01/13/17 05:10 01/13/17 09:12 White Blood Count 5.8 Red Blood Count 3.46 L Hemoglobin 9.9 L Hematocrit 31.0 L Mean Corpuscular Volume 89.6 Mean Corpuscular Hemoglobin 28.6 L Mean Corpuscular Hemoglobin Concent 31.9 L Red Cell Distribution Width 19.7 H Platelet Count 166 Mean Platelet Volume 9.6 Neutrophils % 70.3 Lymphocytes % 16.1 Monocytes % 7.4 Eosinophils % 5.7 Basophils % 0.3 Nucleated Red Blood Cells % 0.0 Neutrophils # 4.1 Lymphocytes # 0.9 Monocytes # 0.4 Eosinophils # 0.3 Basophils # 0.0 Nucleated Red Blood Cells # 0.0 Sodium Level 140 Potassium Level 3.7 Chloride Level 109 Carbon Dioxide Level 26 Anion Gap 9 Blood Urea Nitrogen 23 #H Creatinine 0.96 Glucose Level 91 Calcium Level 8.3 L Total Bilirubin 1.2 Direct Bilirubin 0.00 Indirect Bilirubin 1.2 H Aspartate Amino Transf (AST/SGOT) 38 Alanine Aminotransferase (ALT/SGPT) 45 Alkaline Phosphatase 78 Total Protein 6.0 L Albumin 2.7 L Globulin 3.30 H Albumin/Globulin Ratio 0.81 Blood Gas Specimen Source Blood arterial Arterial Blood Date Drawn 01/13/2017 5:03:32 AM Arterial Blood pH (Temp corrected) 7.386 Arterial Blood pCO2 (Temp correct) 40.7 Arterial Blood pO2 (Temp corrected) 93.6 Arterial Blood HCO3 23.9 Arterial Blood Base Excess -1.1 Arterial Blood Oxygen Saturation 96.9 Nik Test N/A Arterial Blood Gas Puncture Site Right Brachial Arterial Blood Carboxyhemoglobin 0.5 Arterial Blood Methemoglobin 0.4 Blood Gas A-a O2 Differential 144.8 H Oxyhemoglobin Percent 96.0 Total Hemoglobin 12.1 Blood Gas Temperature 37.0 Blood Gas Respiration Rate 20.0 Blood Gas Actual Respiration Rate 20 Blood Gas Modality VENT - AC FiO2 40.0 Blood Gas Tidal Volume 450.0 Blood Gas Low PEEP Setting 5.0 Blood Gas Inspiratory Pressure 31.0 Blood Gas Notified Whom MM Blood Gas Notified Time 01/13/2017 5:22:47 AM Bedside Glucose 78 76 Test 01/13/17 12:41 Bedside Glucose 84 Medications Medications Current Medications Acetaminophen (Tylenol Tab) 650 mg Q6H PRN PO PAIN LEVEL 1-3 OR FEVER Last administered on 01/11/17 00:23; Admin Dose 650 MG; Start 01/11/17 at 00:00 Docusate Sodium (Colace) 100 mg Q12H PRN PO CONSTIPATION; Start 01/11/17 at 00 :00 Bisacodyl (Dulcolax) 5 mg DAILY PRN PO CONSTIPATION; Start 01/11/17 at 00:00 Famotidine (Pepcid) 20 mg Q12 PO Last administered on 01/13/17 09:13; Admin Dose 20 MG; Start 01/11/17 at 00:00 Enoxaparin Sodium (Lovenox) 100 mg Q12 SC Last administered on 01/13/17 09:15 ; Admin Dose 100 MG; Start 01/11/17 at 00:00 Lorazepam (Ativan) 1 mg Q4H PRN IV AGITATION/ANXIETY Last administered on 01/12 23:00; Admin Dose 1 MG; Start 01/11/17 at 01:30 Aspirin (Halfprin) 81 mg DAILY PO Last administered on 01/13/17 09:13; Admin Dose 81 MG; Start 01/11/17 at 09:00 Benazepril HCl (Lotensin) 20 mg DAILY PO ; Start 01/11/17 at 09:00 Miscellaneous Information 1 ea NOTE XX ; Start 01/11/17 at 02:00 Glucose (Glutose) 15 gm Q15M PRN PO DECREASED GLUCOSE; Start 01/11/17 at 02:00 Glucose (Glutose) 22.5 gm Q15M PRN PO DECREASED GLUCOSE; Start 01/11/17 at 02: 00 Dextrose (D50w Syringe) 25 ml Q15M PRN IV DECREASED GLUCOSE Last administered on 01/11/17 09:01; Admin Dose 25 ML; Start 01/11/17 at 02:00 Dextrose (D50w Syringe) 50 ml Q15M PRN IV DECREASED GLUCOSE; Start 01/11/17 at 02:00 Glucagon (Glucagen) 1 mg Q15M PRN IM DECREASED GLUCOSE; Start 01/11/17 at 02: 00 Glucose 15 gm 15 gm Q15M PRN BUCCAL DECREASED GLUCOSE; Start 01/11/17 at 02:00 Norepinephrine 16 mg/Dextrose 500 ml @ 0 mls/hr TITRATE IV Last administered on 01/12/17 19:29; Admin Dose 37.5 MLS/HR; Start 01/11/17 at 15:00 Fentanyl 100 ml @ 2.5 mls/hr TITRATE IV Last administered on 01/13/17 05:11 ; Admin Dose 5 MLS/HR; Start 01/11/17 at 23:30; Status Future hold Midazolam HCl (Versed) 50 ml @ 1 mls/hr TITRATE IV Last administered on 14:46; Admin Dose 9 MLS/HR; Start 01/12/17 at 01:30; Status Future hold Insulin Aspart (Adult SC Insulin - Mild Algorithm)... Q4 SC Last administered on 01/12/17 17:28; Admin Dose 1 UNIT; Start 01/12/17 at 09:00 Dobutamine HCl/ Dextrose 250 ml @ 7.748 mls/ hr TITRATE IV Last administered on 01/13/17 13:19; Admin Dose 34.089 MLS/HR; Start 01/12/17 at 12:30 Amiodarone HCl 200 mg 200 mg TID PO Last administered on 01/13/17 13:13; Admin Dose 200 MG; Start 01/12/17 at 21:00 Piperacillin Sod/ Tazobactam Sod (Zosyn 3.375gm/ 100 ml (Pmx)) 100 ml @ 200 mls /hr Q8 IVPB Last administered on 01/13/17 13:14; Admin Dose 200 MLS/HR; Start 01/13/17 at 08:00 CORNELIO MONTERO MD Jan 13, 2017 15:00
--- NOTE | 2017-01-13 16:06 | RADRPT ---
PROCEDURE: XR Chest. CLINICAL INDICATION: Check endotracheal tube position. TECHNIQUE: Single frontal view. COMPARISON: Prior study done earlier the same day. FINDINGS: The endotracheal tube is in satisfactory position with the tip 3.9 cm above the stephen. The nasogast salome tube tip is in the stomach. Left basilar atelectasis or pneumonia is slightly worse than seen pr eviously. The lungs are otherwise clear. There is mild pulmonary edema, unchanged. The heart is enlarged. There is no pleural effusion. There is no pneumothorax. IMPRESSION: 1. Endotracheal tube and nasogastric tube in satisfactory position. 2. Left basilar atelectasis or pneumonia, slightly worse than seen previously. 3. Mild pulmonary edema, unchanged. 4. No other new abnormality. RPTAT: QQ .Thomas Murphy MD, Date Time Electronically viewed and signed by .Thomas Murphy MD, on 01/13/2017 16:06 .R/
--- NOTE | 2017-01-13 16:39 | RADRPT ---
Vent Rate: 94 bpm RR Interval: 0 msec SD Interval: 0 msec QRS Duration: 106 msec QT Interval: 378 msec QTC Interval: 472 msec P-R-T [place]: 0 - 121 - 65 degrees Atrial fibrillationflutter Right axis deviation Low voltage QRS Incomplete right bundle branch block Cannot rule out Anterior infarct , age undetermined Abnormal ECG Electronically Signed By: Paul Vasquez [id number]
[2017-01-14] VITALS (89 sets, daily range): BP systolic 87–131; BP diastolic 66–111; PULSE 87–130; RESP 13–23
[2017-01-14] MEDS: Insulin NOVOLOG SS MILD Algorithm (NPO/TPN/ENTERAL FEEDS) SC SCH ×6 (01:00→21:00)
[2017-01-14] MEDS: MIDAZOLAM (DRIP) 50 mg/50 mL 50 ML IV SCH ×2 (02:29→08:14)
[2017-01-14 05:05] LABS: AADO2 Arterial 159.4 mmHg (7.0-24.0); Arterial Base Excess 2.7 mmol/L (-3.0-3); Arterial COHb 0.3 % (0.0-3.0); Arterial Fraction of Oxyhgb 95.3 % (93.0-99.0); Arterial HCO3 26.8 mmol/L (22.0-26.0); Arterial MetHb 0.3 % (0.0-1.5); Arterial Total Hemglobin 12.8 g/dl (12.0-18.0); MODE VENT - AC
[2017-01-14] MEDS: FUROSEMIDE 40 MG TAB PO SCH ×2 (05:46→17:52)
[2017-01-14] MEDS: PIPER-TAZO 3.375 GM IV (PMX) 100 ML IVPB SCH ×2 (05:47→13:28)
[2017-01-14 06:40] LABS: BASOPHILS % 0.2 % (0.0-2.0); EOSINOPHILS # 0.4 10^3/ul (0.0-0.5); EOSINOPHILS % 6.9 % (0.0-7.0); HEMATOCRIT 36.5 % (37.0-47.0); HEMOGLOBIN 11.7 g/dl (12.0-16.0); LYMPHOCYTES # 0.7 10^3/ul (0.8-2.9); LYMPHOCYTES % 12.6 % (15.0-51.0); MEAN CORPUSCULAR HEMOGLOBIN 28.5 pg (29.0-33.0); MEAN CORPUSCULAR HGB CONC 32.1 g/dl (32.0-37.0); MEAN PLATELET VOLUME 9.9 fl (7.4-10.4); MONOCYTE # 0.4 10^3/ul (0.3-0.9); MONOCYTES % 8.2 % (0.0-11.0); NEUTROPHIL # 3.9 10^3/ul (1.6-7.5); NEUTROPHILS % 71.9 % (39.0-77.0); PLATELET COUNT 195 10^3/UL (140-415); RED CELL DISTRIBUTION WIDTH 19.9 % (11.5-14.5); WHITE BLOOD COUNT 5.4 10^3/ul (4.8-10.8)
[2017-01-14 07:08] LABS: CREATININE 0.81 mg/dl (0.44-1.00); POTASSIUM 3.2 mmol/L (3.5-5.1)
[2017-01-14] MEDS: DOBUTamine/D5W 2 MG/ML DRIP 250 ML IV SCH (07:23)
[2017-01-14] MEDS: FAMOTIDINE 20 MG TAB PO SCH (08:36)
[2017-01-14] MEDS: ASPIRIN (EC) 81 MG TAB PO SCH (08:36)
[2017-01-14] MEDS: ENOXAPARIN 100 MG/ML SYG SC SCH ×2 (08:37→21:59)
[2017-01-14] MEDS: AMIODARONE 200 MG TAB PO SCH ×2 (08:37→13:28)
[2017-01-14] MEDS: FENTAnyl (DRIP) 1000 mcg/100mL 100 ML IV SCH (08:37)
[2017-01-14] MEDS: BENAZEPRIL 20 MG TAB PO SCH (08:39)
[2017-01-14] MEDS ORDERED: POTASSIUM CHLORIDE 250 ML IVPB ONE (10:00)
[2017-01-14] MEDS ORDERED: LIDOCAINE 1% (MPF) 5 ML VIAL SC ONE (12:00)
--- NOTE | 2017-01-14 12:50 | CONS ---
Date/Time of Note Date/Time of Note DATE: 01/14/17 TIME: 12:45 Assessment/Plan Assessment/Plan Chief Complaint/Hosp Course IMPRESSION 1. Hypotension/shock, currently on Levophed pressor support. 2. Atrial flutter with variable response. 3. History of cardiomyopathy with severely depressed left ventricular ejection fraction. 4. Congestive heart failure by chest x-ray, systolic by prior echo, acute on chronic. 5. Substance abuse including methamphetamines. 6. History of cerebrovascular accident. 7. Diabetes mellitus. 8. History of chronic obstructive pulmonary disease. Recc: -ICU tele monitoring -Wean levo/dobutamine to off as tolerated as currently on very low doses -Continue now PO amio in attempt to return patient to SR -Decrease doses of ACEI/BB so that when receives will not cause excessive recurrent hypotension -wean vent as tolerated/possible -Continue asa/lasix and follow volume status closely Problems: Consultation Date/Type/Reason Admit Date/Time Jan 10, 2017 at 22:38 Initial Consult Date 01/11/2017 Type of Consultation: cardiology Reason for Consultation shock/CHF/AFL Referring Provider: KB CAMPO Exam/Review of Systems Vital Signs Vitals Vital Signs Date Time Temp Pulse Resp B/P Pulse Ox O2 Delivery O2 Flow Rate FiO2 01/14/17 12:15 90 20 94/70 100 01/14/17 12:00 98.3 Mechanical Ventilator 01/14/17 08:00 30 01/11/17 20:55 2.0 Intake and Output 01/13/17 01/13/17 01/14/17 15:00 23:00 07:00 Intake Total 549.682 ml 459.194 ml 296.51 ml Output Total 2055 ml 3290 ml 1315 ml Balance -1505.318 ml -2830.806 ml -1018.49 ml Exam Review of Systems: CONSTITUTIONAL: No fevers, chills. PULMONARY: intubated CARDIOVASCULAR: No obvious chest pain/palpitations GASTROINTESTINAL: No nausea/vomiting. GENITOURINARY: No hematuria/dysuria. MUSCULOSKELETAL: No obvious myagias/arthalgias. PSYCHIATRIC: The patient denies depression. NEUROLOGIC: sedated Constitutional: alert Psych: no complaints Head: normocephalic ENMT: mucosa pink and moist Neck: jvd (9 cm water), supple Respiratory: diminished breath sounds (at bases/B) Cardiovascular: regular rate and rhythm Gastrointestinal: non-tender, soft Musculoskeletal: muscle tone (normal) Extremities: edema (none) Neurological: other (No focalm deficits) Results Result Diagram: 01/14/1751901/14/17 0520 Results 24 hrs Laboratory Tests Test 01/13/17 17:36 01/13/17 20:11 01/14/17 01:21 01/14/17 05:00 Bedside Glucose 88 92 72 Blood Gas Specimen Source Blood arterial Arterial Blood Date Drawn 01/14/2017 4:45:03 AM Arterial Blood pH (Temp corrected) 7.449 Arterial Blood pCO2 (Temp correct) 39.6 Arterial Blood pO2 (Temp corrected) 80.3 Arterial Blood HCO3 26.8 H Arterial Blood Base Excess 2.7 Arterial Blood Oxygen Saturation 95.9 Nik Test N/A Arterial Blood Gas Puncture Site Right Brachial Arterial Blood Carboxyhemoglobin 0.3 Arterial Blood Methemoglobin 0.3 Blood Gas A-a O2 Differential 159.4 H Oxyhemoglobin Percent 95.3 Total Hemoglobin 12.8 Blood Gas Temperature 37.0 Blood Gas Respiration Rate 20.0 Blood Gas Actual Respiration Rate 20 Blood Gas Modality VENT - AC FiO2 40.0 Blood Gas Tidal Volume 450.0 Blood Gas Low PEEP Setting 5.0 Blood Gas Notified Whom MA Blood Gas Notified Time 01/14/2017 5:05:50 AM Test 01/14/17 05:20 01/14/17 05:27 01/14/17 06:06 01/14/17 08:38 White Blood Count 5.4 Red Blood Count 4.10 L Hemoglobin 11.7 L Hematocrit 36.5 L Mean Corpuscular Volume 89.0 Mean Corpuscular Hemoglobin 28.5 L Mean Corpuscular Hemoglobin Concent 32.1 Red Cell Distribution Width 19.9 H Platelet Count 195 Mean Platelet Volume 9.9 Neutrophils % 71.9 Lymphocytes % 12.6 L Monocytes % 8.2 Eosinophils % 6.9 Basophils % 0.2 Nucleated Red Blood Cells % 0.0 Neutrophils # 3.9 Lymphocytes # 0.7 L Monocytes # 0.4 Eosinophils # 0.4 Basophils # 0.0 Nucleated Red Blood Cells # 0.0 Sodium Level 142 Potassium Level 3.2 L Chloride Level 104 Carbon Dioxide Level 30 Anion Gap 11 Blood Urea Nitrogen 11 # Creatinine 0.81 Glucose Level 66 #L Calcium Level 8.0 L Bedside Glucose 74 71 Lactic Acid Level 1.0 Medications Medications Current Medications Acetaminophen (Tylenol Tab) 650 mg Q6H PRN PO PAIN LEVEL 1-3 OR FEVER Last administered on 01/11/17 00:23; Admin Dose 650 MG; Start 01/11/17 at 00:00 Docusate Sodium (Colace) 100 mg Q12H PRN PO CONSTIPATION; Start 01/11/17 at 00 :00 Bisacodyl (Dulcolax) 5 mg DAILY PRN PO CONSTIPATION; Start 01/11/17 at 00:00 Famotidine (Pepcid) 20 mg Q12 PO Last administered on 01/14/17 08:36; Admin Dose 20 MG; Start 01/11/17 at 00:00 Enoxaparin Sodium (Lovenox) 100 mg Q12 SC Last administered on 01/14/17 08:37 ; Admin Dose 100 MG; Start 01/11/17 at 00:00 Lorazepam (Ativan) 1 mg Q4H PRN IV AGITATION/ANXIETY Last administered on 01/12 23:00; Admin Dose 1 MG; Start 01/11/17 at 01:30 Aspirin (Halfprin) 81 mg DAILY PO Last administered on 01/14/17 08:36; Admin Dose 81 MG; Start 01/11/17 at 09:00 Benazepril HCl (Lotensin) 20 mg DAILY PO ; Start 01/11/17 at 09:00 Miscellaneous Information 1 ea NOTE XX ; Start 01/11/17 at 02:00 Glucose (Glutose) 15 gm Q15M PRN PO DECREASED GLUCOSE; Start 01/11/17 at 02:00 Glucose (Glutose) 22.5 gm Q15M PRN PO DECREASED GLUCOSE; Start 01/11/17 at 02: 00 Dextrose (D50w Syringe) 25 ml Q15M PRN IV DECREASED GLUCOSE Last administered on 01/11/17 09:01; Admin Dose 25 ML; Start 01/11/17 at 02:00 Dextrose (D50w Syringe) 50 ml Q15M PRN IV DECREASED GLUCOSE; Start 01/11/17 at 02:00 Glucagon (Glucagen) 1 mg Q15M PRN IM DECREASED GLUCOSE; Start 01/11/17 at 02: 00 Glucose 15 gm 15 gm Q15M PRN BUCCAL DECREASED GLUCOSE; Start 01/11/17 at 02:00 Norepinephrine 16 mg/Dextrose 500 ml @ 0 mls/hr TITRATE IV Last administered on 01/14/17 02:42; Admin Dose 9.37 MLS/HR; Start 01/11/17 at 15:00 Fentanyl 100 ml @ 2.5 mls/hr TITRATE IV Last administered on 01/14/17 08:37 ; Admin Dose 7.5 MLS/HR; Start 01/11/17 at 23:30; Status Future hold Midazolam HCl (Versed) 50 ml @ 1 mls/hr TITRATE IV Last administered on 08:14; Admin Dose 9 MLS/HR; Start 01/12/17 at 01:30; Status Future hold Insulin Aspart (Adult SC Insulin - Mild Algorithm)... Q4 SC Last administered on 01/12/17 17:28; Admin Dose 1 UNIT; Start 01/12/17 at 09:00 Dobutamine HCl/ Dextrose 250 ml @ 7.748 mls/ hr TITRATE IV Last administered on 01/14/17 07:23; Admin Dose 12.396 MLS/HR; Start 01/12/17 at 12:30 Amiodarone HCl 200 mg 200 mg TID PO Last administered on 01/14/17 08:37; Admin Dose 200 MG; Start 01/12/17 at 21:00 Piperacillin Sod/ Tazobactam Sod 100 ml @ 200 mls/hr Q8 IVPB Last administered on 01/14/17 05:47; Admin Dose 200 MLS/HR; Start 01/13/17 at 08: 00 Potassium Chloride (KCl 40 MEQ/250 ML NS) 250 ml @ 62.5 mls/hr ONCE ONCE IVPB Last administered on 01/14/17 10:51; Admin Dose 62.5 MLS/HR; Start at 10:00; Stop 01/14/17 at 13:59 DAJA CROSS Jan 14, 2017 12:50
--- NOTE | 2017-01-14 12:57 | CONS ---
Date/Time of Note Date/Time of Note DATE: 01/14/17 TIME: 12:56 Consult Date/Type/Reason Admit Date/Time Jan 10, 2017 at 22:38 Initial Consult Date Type of Consultation: Pulmonary Ordering Provider: KB CAMPO Subjective Patient remains intubated on mechanical ventilation appears comfortable at rest Objective Vital Signs Date Time Temp Pulse Resp B/P Pulse Ox O2 Delivery O2 Flow Rate FiO2 01/14/17 12:15 90 20 94/70 100 01/14/17 12:00 98.3 Mechanical Ventilator 01/14/17 08:00 30 01/11/17 20:55 2.0 Intake and Output 01/13/17 01/13/17 01/14/17 15:00 23:00 07:00 Intake Total 549.682 ml 459.194 ml 296.51 ml Output Total 2055 ml 3290 ml 1315 ml Balance -1505.318 ml -2830.806 ml -1018.49 ml Exam PHYSICAL EXAMINATION GENERAL: Well-nourished well-developed lady orally intubated on mechanical ventilation VITAL SIGNS: see below. HEENT: Pupils equal, round, and reactive to light. CARDIAC: S1, S2, CHEST: Diminished air entry bilaterally. ABDOMEN: Mildly distended. Bowel sounds present no guarding or rebound EXTREMITIES: No cyanosis, clubbing edema +1 NEUROLOGIC: Generalized weakness Results/Medications Result Diagram: 01/14/17 0520 01/14/17 0520 Results 24 hrs Laboratory Tests Test 01/13/17 17:36 01/13/17 20:11 01/14/17 01:21 01/14/17 05:00 Bedside Glucose 88 92 72 Blood Gas Specimen Source Blood arterial Arterial Blood Date Drawn 01/14/2017 4:45:03 AM Arterial Blood pH (Temp corrected) 7.449 Arterial Blood pCO2 (Temp correct) 39.6 Arterial Blood pO2 (Temp corrected) 80.3 Arterial Blood HCO3 26.8 H Arterial Blood Base Excess 2.7 Arterial Blood Oxygen Saturation 95.9 Nik Test N/A Arterial Blood Gas Puncture Site Right Brachial Arterial Blood Carboxyhemoglobin 0.3 Arterial Blood Methemoglobin 0.3 Blood Gas A-a O2 Differential 159.4 H Oxyhemoglobin Percent 95.3 Total Hemoglobin 12.8 Blood Gas Temperature 37.0 Blood Gas Respiration Rate 20.0 Blood Gas Actual Respiration Rate 20 Blood Gas Modality VENT - AC FiO2 40.0 Blood Gas Tidal Volume 450.0 Blood Gas Low PEEP Setting 5.0 Blood Gas Notified Whom MA Blood Gas Notified Time 01/14/2017 5:05:50 AM Test 01/14/17 05:20 01/14/17 05:27 01/14/17 06:06 01/14/17 08:38 White Blood Count 5.4 Red Blood Count 4.10 L Hemoglobin 11.7 L Hematocrit 36.5 L Mean Corpuscular Volume 89.0 Mean Corpuscular Hemoglobin 28.5 L Mean Corpuscular Hemoglobin Concent 32.1 Red Cell Distribution Width 19.9 H Platelet Count 195 Mean Platelet Volume 9.9 Neutrophils % 71.9 Lymphocytes % 12.6 L Monocytes % 8.2 Eosinophils % 6.9 Basophils % 0.2 Nucleated Red Blood Cells % 0.0 Neutrophils # 3.9 Lymphocytes # 0.7 L Monocytes # 0.4 Eosinophils # 0.4 Basophils # 0.0 Nucleated Red Blood Cells # 0.0 Sodium Level 142 Potassium Level 3.2 L Chloride Level 104 Carbon Dioxide Level 30 Anion Gap 11 Blood Urea Nitrogen 11 # Creatinine 0.81 Glucose Level 66 #L Calcium Level 8.0 L Bedside Glucose 74 71 Lactic Acid Level 1.0 Medications Current Medications Acetaminophen (Tylenol Tab) 650 mg Q6H PRN PO PAIN LEVEL 1-3 OR FEVER Last administered on 01/11/17 00:23; Admin Dose 650 MG; Start 01/11/17 at 00:00 Docusate Sodium (Colace) 100 mg Q12H PRN PO CONSTIPATION; Start 01/11/17 at 00 :00 Bisacodyl (Dulcolax) 5 mg DAILY PRN PO CONSTIPATION; Start 01/11/17 at 00:00 Famotidine (Pepcid) 20 mg Q12 PO Last administered on 01/14/17 08:36; Admin Dose 20 MG; Start 01/11/17 at 00:00 Enoxaparin Sodium (Lovenox) 100 mg Q12 SC Last administered on 01/14/17 08:37 ; Admin Dose 100 MG; Start 01/11/17 at 00:00 Lorazepam (Ativan) 1 mg Q4H PRN IV AGITATION/ANXIETY Last administered on 01/12 23:00; Admin Dose 1 MG; Start 01/11/17 at 01:30 Aspirin (Halfprin) 81 mg DAILY PO Last administered on 01/14/17 08:36; Admin Dose 81 MG; Start 01/11/17 at 09:00 Miscellaneous Information 1 ea NOTE XX ; Start 01/11/17 at 02:00 Glucose (Glutose) 15 gm Q15M PRN PO DECREASED GLUCOSE; Start 01/11/17 at 02:00 Glucose (Glutose) 22.5 gm Q15M PRN PO DECREASED GLUCOSE; Start 01/11/17 at 02: 00 Dextrose (D50w Syringe) 25 ml Q15M PRN IV DECREASED GLUCOSE Last administered on 01/11/17 09:01; Admin Dose 25 ML; Start 01/11/17 at 02:00 Dextrose (D50w Syringe) 50 ml Q15M PRN IV DECREASED GLUCOSE; Start 01/11/17 at 02:00 Glucagon (Glucagen) 1 mg Q15M PRN IM DECREASED GLUCOSE; Start 01/11/17 at 02: 00 Glucose 15 gm 15 gm Q15M PRN BUCCAL DECREASED GLUCOSE; Start 01/11/17 at 02:00 Norepinephrine 16 mg/Dextrose 500 ml @ 0 mls/hr TITRATE IV Last administered on 01/14/17 02:42; Admin Dose 9.37 MLS/HR; Start 01/11/17 at 15:00 Fentanyl 100 ml @ 2.5 mls/hr TITRATE IV Last administered on 01/14/17 08:37 ; Admin Dose 7.5 MLS/HR; Start 01/11/17 at 23:30; Status Future hold Midazolam HCl (Versed) 50 ml @ 1 mls/hr TITRATE IV Last administered on 08:14; Admin Dose 9 MLS/HR; Start 01/12/17 at 01:30; Status Future hold Insulin Aspart (Adult SC Insulin - Mild Algorithm)... Q4 SC Last administered on 01/12/17 17:28; Admin Dose 1 UNIT; Start 01/12/17 at 09:00 Dobutamine HCl/ Dextrose 250 ml @ 7.748 mls/ hr TITRATE IV Last administered on 01/14/17 07:23; Admin Dose 12.396 MLS/HR; Start 01/12/17 at 12:30 Amiodarone HCl 200 mg 200 mg TID PO Last administered on 01/14/17 08:37; Admin Dose 200 MG; Start 01/12/17 at 21:00 Piperacillin Sod/ Tazobactam Sod 100 ml @ 200 mls/hr Q8 IVPB Last administered on 01/14/17 05:47; Admin Dose 200 MLS/HR; Start 01/13/17 at 08: 00 Potassium Chloride (KCl 40 MEQ/250 ML NS) 250 ml @ 62.5 mls/hr ONCE ONCE IVPB Last administered on 01/14/17 10:51; Admin Dose 62.5 MLS/HR; Start at 10:00; Stop 01/14/17 at 13:59 Benazepril HCl (Lotensin) 5 mg DAILY PO ; Start 01/15/17 at 09:00 Assessment/Plan Chief Complaint/Hosp Course IMP: 1. Shock, most likely a component of cardiogenic, in view of her underlying cardiomyopathy, however, cannot exclude a co-existing distributive cause. + Cx for G+ rods (unclear significance) 2. Respiratory failure secondary to her underlying cardiomyopathy and volume overload. 3. Atrial flutter with variable response. 4. Congestive heart failure. 5. Acute kidney injury, likely cardiorenal. 6. Substance abuse with methamphetamines. 7. Diabetes. RECOMMENDATIONS: 1. Vent support CPAP trial today. 2. Titrate off dobutamine gtt IV access. 3. Continue levophed gtt to MAP > 65 4. Gentle diuresis 5. Repeat cultures 6. Cont abx Problems: KELLY DEL CID MD, [facility] Jan 14, 2017 12:57
--- NOTE | 2017-01-14 16:11 | PN ---
Date/Time of Note Date/Time of Note DATE: 01/14/17 TIME: 15:57 Assessment/Plan VTE Prophylaxis VTE Prophylaxis Intervention: LMWH Assessment/Plan Chief Complaint/Hosp Course 1. Acute respiratory failure secondary to acute on chronic systolic CHF exacerbation Continue diuresis Continue vent support Continue dobutamine drip 2. A-fib with RVR in the setting of methamphetamine use Patient is status post diltiazem with consequential hypotension requiring pressor support Continue amiodarone and Lovenox 3. Cardiogenic shock Continue dobutamine 4. Chronic Moderate-severe MR 5. DIANNA-resolved Prophylaxis: Lovenox Problems: Subjective 24 Hr Interval Summary Subjective hx not possible: pt non-verbal Exam/Review of Systems Vital Signs Vitals Vital Signs Date Time Temp Pulse Resp B/P Pulse Ox O2 Delivery O2 Flow Rate FiO2 01/14/17 14:15 102 20 108/78 98 01/14/17 14:00 Mechanical Ventilator 01/14/17 12:00 98.3 01/14/17 08:00 30 01/11/17 20:55 2.0 Intake and Output 01/13/17 01/13/17 01/14/17 15:00 23:00 07:00 Intake Total 549.682 ml 459.194 ml 296.51 ml Output Total 2055 ml 3290 ml 1315 ml Balance -1505.318 ml -2830.806 ml -1018.49 ml Exam Constitutional: non-verbal ENMT: intubated Respiratory: clear to auscultation Cardiovascular: regular rate and rhythm Gastrointestinal: soft, No distended Musculoskeletal: nl extremities to inspection Results Result Diagram: 01/14/17 0520 01/14/17 0520 Results 24 hrs Laboratory Tests Test 01/13/17 17:36 01/13/17 20:11 01/14/17 01:21 01/14/17 05:00 Bedside Glucose 88 92 72 Blood Gas Specimen Source Blood arterial Arterial Blood Date Drawn 01/14/2017 4:45:03 AM Arterial Blood pH (Temp corrected) 7.449 Arterial Blood pCO2 (Temp correct) 39.6 Arterial Blood pO2 (Temp corrected) 80.3 Arterial Blood HCO3 26.8 H Arterial Blood Base Excess 2.7 Arterial Blood Oxygen Saturation 95.9 Nik Test N/A Arterial Blood Gas Puncture Site Right Brachial Arterial Blood Carboxyhemoglobin 0.3 Arterial Blood Methemoglobin 0.3 Blood Gas A-a O2 Differential 159.4 H Oxyhemoglobin Percent 95.3 Total Hemoglobin 12.8 Blood Gas Temperature 37.0 Blood Gas Respiration Rate 20.0 Blood Gas Actual Respiration Rate 20 Blood Gas Modality VENT - AC FiO2 40.0 Blood Gas Tidal Volume 450.0 Blood Gas Low PEEP Setting 5.0 Blood Gas Notified Whom MA Blood Gas Notified Time 01/14/2017 5:05:50 AM Test 01/14/17 05:20 01/14/17 05:27 01/14/17 06:06 01/14/17 08:38 White Blood Count 5.4 Red Blood Count 4.10 L Hemoglobin 11.7 L Hematocrit 36.5 L Mean Corpuscular Volume 89.0 Mean Corpuscular Hemoglobin 28.5 L Mean Corpuscular Hemoglobin Concent 32.1 Red Cell Distribution Width 19.9 H Platelet Count 195 Mean Platelet Volume 9.9 Neutrophils % 71.9 Lymphocytes % 12.6 L Monocytes % 8.2 Eosinophils % 6.9 Basophils % 0.2 Nucleated Red Blood Cells % 0.0 Neutrophils # 3.9 Lymphocytes # 0.7 L Monocytes # 0.4 Eosinophils # 0.4 Basophils # 0.0 Nucleated Red Blood Cells # 0.0 Sodium Level 142 Potassium Level 3.2 L Chloride Level 104 Carbon Dioxide Level 30 Anion Gap 11 Blood Urea Nitrogen 11 # Creatinine 0.81 Glucose Level 66 #L Calcium Level 8.0 L Bedside Glucose 74 71 Lactic Acid Level 1.0 Test 01/14/17 13:00 Bedside Glucose 73 Medications Medications Current Medications Acetaminophen (Tylenol Tab) 650 mg Q6H PRN PO PAIN LEVEL 1-3 OR FEVER Last administered on 01/11/17 00:23; Admin Dose 650 MG; Start 01/11/17 at 00:00 Docusate Sodium (Colace) 100 mg Q12H PRN PO CONSTIPATION; Start 01/11/17 at 00 :00 Bisacodyl (Dulcolax) 5 mg DAILY PRN PO CONSTIPATION; Start 01/11/17 at 00:00 Famotidine (Pepcid) 20 mg Q12 PO Last administered on 01/14/17 08:36; Admin Dose 20 MG; Start 01/11/17 at 00:00 Enoxaparin Sodium (Lovenox) 100 mg Q12 SC Last administered on 01/14/17 08:37 ; Admin Dose 100 MG; Start 01/11/17 at 00:00 Lorazepam (Ativan) 1 mg Q4H PRN IV AGITATION/ANXIETY Last administered on 01/12 23:00; Admin Dose 1 MG; Start 01/11/17 at 01:30 Aspirin (Halfprin) 81 mg DAILY PO Last administered on 01/14/17 08:36; Admin Dose 81 MG; Start 01/11/17 at 09:00 Miscellaneous Information 1 ea NOTE XX ; Start 01/11/17 at 02:00 Glucose (Glutose) 15 gm Q15M PRN PO DECREASED GLUCOSE; Start 01/11/17 at 02:00 Glucose (Glutose) 22.5 gm Q15M PRN PO DECREASED GLUCOSE; Start 01/11/17 at 02: 00 Dextrose (D50w Syringe) 25 ml Q15M PRN IV DECREASED GLUCOSE Last administered on 01/11/17 09:01; Admin Dose 25 ML; Start 01/11/17 at 02:00 Dextrose (D50w Syringe) 50 ml Q15M PRN IV DECREASED GLUCOSE; Start 01/11/17 at 02:00 Glucagon (Glucagen) 1 mg Q15M PRN IM DECREASED GLUCOSE; Start 01/11/17 at 02: 00 Glucose 15 gm 15 gm Q15M PRN BUCCAL DECREASED GLUCOSE; Start 01/11/17 at 02:00 Norepinephrine 16 mg/Dextrose 500 ml @ 0 mls/hr TITRATE IV Last administered on 01/14/17 02:42; Admin Dose 9.37 MLS/HR; Start 01/11/17 at 15:00 Fentanyl 100 ml @ 2.5 mls/hr TITRATE IV Last administered on 01/14/17 08:37 ; Admin Dose 7.5 MLS/HR; Start 01/11/17 at 23:30; Status Future hold Midazolam HCl (Versed) 50 ml @ 1 mls/hr TITRATE IV Last administered on 08:14; Admin Dose 9 MLS/HR; Start 01/12/17 at 01:30; Status Future hold Insulin Aspart (Adult SC Insulin - Mild Algorithm)... Q4 SC Last administered on 01/12/17 17:28; Admin Dose 1 UNIT; Start 01/12/17 at 09:00 Dobutamine HCl/ Dextrose 250 ml @ 7.748 mls/ hr TITRATE IV Last administered on 01/14/17 07:23; Admin Dose 12.396 MLS/HR; Start 01/12/17 at 12:30 Amiodarone HCl 200 mg 200 mg TID PO Last administered on 01/14/17 13:28; Admin Dose 200 MG; Start 01/12/17 at 21:00 Piperacillin Sod/ Tazobactam Sod (Zosyn 3.375gm/ 100 ml (Pmx)) 100 ml @ 200 mls /hr Q8 IVPB Last administered on 01/14/17 13:28; Admin Dose 200 MLS/HR; Start 01/13/17 at 08:00 Benazepril HCl (Lotensin) 5 mg DAILY PO ; Start 01/15/17 at 09:00 MAURILIO AMEZQUITA Jan 14, 2017 16:07
[2017-01-14 17:10] LABS: AADO2 Arterial 70.5 mmHg (7.0-24.0); Allen Test ACCEPTAB; Arterial Base Excess 1.5 mmol/L (-3.0-3); Arterial COHb 0.2 % (0.0-3.0); Arterial Fraction of Oxyhgb 95.7 % (93.0-99.0); Arterial HCO3 26.5 mmol/L (22.0-26.0); Arterial MetHb 0.3 % (0.0-1.5); Arterial Total Hemglobin 12.8 g/dl (12.0-18.0); Blood Gas PS 10; MODE VENT - CPAP
[2017-01-14] MEDS: ALBUTEROL/IPRATROPIUM (NEB) 3 ML AMP HHN SCH (20:01)
[2017-01-15] VITALS (41 sets, daily range): BP systolic 88–127; BP diastolic 55–109; PULSE 88–137; RESP 11–28
[2017-01-15] MEDS: Insulin NOVOLOG SS MILD Algorithm (NPO/TPN/ENTERAL FEEDS) SC SCH ×6 (01:00→21:00)
--- NOTE | 2017-01-15 01:19 | RADRPT ---
PROCEDURE: XR Chest. CLINICAL INDICATION: New nasogastric tube placement. TECHNIQUE: 2 frontal views of the chest. COMPARISON: 06/25/2016. FINDINGS: New nasogastric tube in place with tip and side port in the proximal stomach. Cardiomegaly with athe rosclerotic calcifications in the thoracic aorta. Hypoinflated lungs accentuate pulmonary vascular m arkings. Mild pulmonary vascular congestion is new. The lungs are clear. No signs of pleural fluid o r pneumothorax are seen. The osseous structures and soft tissues are unremarkable. IMPRESSION: 1. New nasogastric tube in place with tip and side port in the proximal stomach. 2. Hypoinflated lungs with new mild pulmonary vascular congestion. RPTAT: [facility] Physician Johnny Date Time Electronically viewed and signed by Physician Johnny on 01/15/2017 01:19 RS/
[2017-01-15] MEDS: FAMOTIDINE 20 MG TAB PO SCH ×3 (01:33→21:14)
[2017-01-15] MEDS: AMIODARONE 200 MG TAB PO SCH ×4 (01:33→21:14)
[2017-01-15] MEDS: ALBUTEROL/IPRATROPIUM (NEB) 3 ML AMP HHN SCH ×4 (01:59→19:17)
[2017-01-15] MEDS: FUROSEMIDE 40 MG TAB PO SCH ×2 (05:33→17:05)
[2017-01-15] MEDS: DEXTROSE 50% 50 ML SYRINGE IV PRN (05:38)
[2017-01-15 06:04] LABS: BASOPHILS % 0.4 % (0.0-2.0); EOSINOPHILS # 0.4 10^3/ul (0.0-0.5); EOSINOPHILS % 7.6 % (0.0-7.0); HEMATOCRIT 38.1 % (37.0-47.0); HEMOGLOBIN 11.7 g/dl (12.0-16.0); LYMPHOCYTES # 0.9 10^3/ul (0.8-2.9); LYMPHOCYTES % 16.6 % (15.0-51.0); MEAN CORPUSCULAR HEMOGLOBIN 27.6 pg (29.0-33.0); MEAN CORPUSCULAR HGB CONC 30.7 g/dl (32.0-37.0); MEAN CORPUSCULAR VOLUME 89.9 fl (82.0-101.0); MEAN PLATELET VOLUME 9.4 fl (7.4-10.4); MONOCYTE # 0.5 10^3/ul (0.3-0.9); MONOCYTES % 9.1 % (0.0-11.0); NEUTROPHIL # 3.5 10^3/ul (1.6-7.5); NEUTROPHILS % 66.1 % (39.0-77.0); PLATELET COUNT 181 10^3/UL (140-415); RED BLOOD COUNT 4.24 10^6/ul (4.20-5.40); RED CELL DISTRIBUTION WIDTH 20.6 % (11.5-14.5); WHITE BLOOD COUNT 5.3 10^3/ul (4.8-10.8)
[2017-01-15 06:32] LABS: CALCIUM 8.4 mg/dl (8.4-10.2); CREATININE 0.86 mg/dl (0.44-1.00); PHOSPHORUS 4.1 mg/dl (2.5-4.9); POTASSIUM 3.9 mmol/L (3.5-5.1)
[2017-01-15 06:56] LABS: Arterial Base Excess 4.9 mmol/L (-3.0-3); Arterial COHb 0.2 % (0.0-3.0); Arterial Fraction of Oxyhgb 96.7 % (93.0-99.0); Arterial HCO3 30.6 mmol/L (22.0-26.0); Arterial MetHb 0.3 % (0.0-1.5); Arterial Total Hemglobin 12.9 g/dl (12.0-18.0); MODE MASK - SIMPLE
[2017-01-15] MEDS: ASPIRIN (EC) 81 MG TAB PO SCH (08:41)
[2017-01-15] MEDS: BENAZEPRIL 5 MG TAB PO SCH (08:42)
[2017-01-15] MEDS: ENOXAPARIN 100 MG/ML SYG SC SCH ×2 (08:43→21:18)
--- NOTE | 2017-01-15 08:46 | CONS ---
Date/Time of Note Date/Time of Note DATE: 01/15/17 TIME: 08:42 Assessment/Plan Assessment/Plan Additional Assessment/Plan 1. Hypotension/shock, off Levophed pressor support- better now. 2. Atrial flutter with variable response - now in sinus tach, con't to follow, still critically ill. 3. History of cardiomyopathy with severely depressed left ventricular ejection fraction- con't diuresis 0- responds to po lasix. 4. Congestive heart failure by chest x-ray, systolic by prior echo, acute on chronic - afterload reduction to be re-instituted with improved BP. 5. Substance abuse including methamphetamines - d/c advised. 6. History of cerebrovascular accident. 7. Diabetes mellitus. 8. History of chronic obstructive pulmonary disease. Consultation Date/Type/Reason Admit Date/Time Jan 10, 2017 at 22:38 Initial Consult Date Type of Consultation: Pulmonary Referring Provider: KB CAMPO 24 HR Interval Summary Free Text/Dictation Now BP better - stable urine output - will re-institute afterload reduction as BP allows. ROS: No fever, no chills, no nausea, no vomiting, no diarrhea/constipation + SOB No recent weight changes No chest pain, no PND, no orthopnea No dizziness, blurred vision No thirst, no heat or cold intolerance Exam/Review of Systems Vital Signs Vitals Vital Signs Date Time Temp Pulse Resp B/P Pulse Ox O2 Delivery O2 Flow Rate FiO2 01/15/17 08:10 132 20 100 Non Rebreather Mask 15.0 100 01/15/17 06:00 127/109 01/15/17 04:00 98.4 Intake and Output 01/14/17 01/14/17 01/15/17 15:00 23:00 07:00 Intake Total 398.136 ml 3.75 ml Output Total 1485 ml 1035 ml 1160 ml Balance -1086.864 ml -1031.25 ml -1160 ml Exam ROS: No fever, no chills, no nausea, no vomiting, no diarrhea/constipation - No recent weight changes No chest pain, no PND, no orthopnea + SOB No dizziness, blurred vision No thirst, no heat or cold intolerance Results Result Diagram: 01/15/17 0530 01/15/17 0530 Results 24 hrs Laboratory Tests Test 01/14/17 13:00 01/14/17:00 01/14/17 17:10 01/14/17 22:01 Bedside Glucose 73 88 71 Blood Gas Specimen Source Blood arterial Arterial Blood Date Drawn 01/14/2017 4:50:39 PM Arterial Blood pH (Temp corrected) 7.406 Arterial Blood pCO2 (Temp correct) 43.2 Arterial Blood pO2 (Temp corrected) 92.6 Arterial Blood HCO3 26.5 H Arterial Blood Base Excess 1.5 Arterial Blood Oxygen Saturation 96.2 Nik Test ACCEPTAB Arterial Blood Gas Puncture Site Right Radial Arterial Blood Carboxyhemoglobin 0.2 Arterial Blood Methemoglobin 0.3 Blood Gas A-a O2 Differential 70.5 H Oxyhemoglobin Percent 95.7 Total Hemoglobin 12.8 Blood Gas Temperature 37.0 Blood Gas Actual Respiration Rate 18 Blood Gas Modality VENT - CPAP FiO2 30.0 Blood Gas Tidal Volume 496.0 Blood Gas Low PEEP Setting 5.0 Blood Gas Pressure Support 10 Blood Gas Notified Whom IRMA DESAI Blood Gas Notified Time 01/14/2017 5:09:35 PM Test 01/15/17 01:32 01/15/17 05:30 01/15/17 05:34 01/15/17 06:12 Bedside Glucose 71 63 L 112 White Blood Count 5.3 Red Blood Count 4.24 Hemoglobin 11.7 L Hematocrit 38.1 Mean Corpuscular Volume 89.9 Mean Corpuscular Hemoglobin 27.6 L Mean Corpuscular Hemoglobin Concent 30.7 L Red Cell Distribution Width 20.6 H Platelet Count 181 Mean Platelet Volume 9.4 Neutrophils % 66.1 Lymphocytes % 16.6 Monocytes % 9.1 Eosinophils % 7.6 H Basophils % 0.4 Nucleated Red Blood Cells % 0.0 Neutrophils # 3.5 Lymphocytes # 0.9 Monocytes # 0.5 Eosinophils # 0.4 Basophils # 0.0 Nucleated Red Blood Cells # 0.0 Sodium Level 144 Potassium Level 3.9 Chloride Level 102 Carbon Dioxide Level 32 H Anion Gap 14 Blood Urea Nitrogen 8 Creatinine 0.86 Glucose Level 71 Calcium Level 8.4 Phosphorus Level 4.1 Magnesium Level 1.0 L Test 01/15/17 07:00 01/15/17 08:33 Blood Gas Specimen Source Blood arterial Arterial Blood Date Drawn 01/15/2017 6:45:33 AM Arterial Blood pH (Temp corrected) 7.404 Arterial Blood pCO2 (Temp correct) 50.1 H Arterial Blood pO2 (Temp corrected) 100.0 Arterial Blood HCO3 30.6 H Arterial Blood Base Excess 4.9 H Arterial Blood Oxygen Saturation 97.2 Nik Test N/A Arterial Blood Gas Puncture Site Right Brachial Arterial Blood Carboxyhemoglobin 0.2 Arterial Blood Methemoglobin 0.3 Blood Gas A-a O2 Differential 280.0 H Oxyhemoglobin Percent 96.7 Total Hemoglobin 12.9 Blood Gas Temperature 37.0 Blood Gas Modality MASK - SIMPLE FiO2 61.0 Blood Gas Notified Whom Adriel MARIA Blood Gas Notified Time 01/15/2017 6:56:16 AM Bedside Glucose 85 Medications Medications Current Medications Acetaminophen (Tylenol Tab) 650 mg Q6H PRN PO PAIN LEVEL 1-3 OR FEVER Last administered on 01/11/17 00:23; Admin Dose 650 MG; Start 01/11/17 at 00:00 Docusate Sodium (Colace) 100 mg Q12H PRN PO CONSTIPATION; Start 01/11/17 at 00 :00 Bisacodyl (Dulcolax) 5 mg DAILY PRN PO CONSTIPATION; Start 01/11/17 at 00:00 Famotidine (Pepcid) 20 mg Q12 PO Last administered on 01/15/17 01:33; Admin Dose 20 MG; Start 01/11/17 at 00:00 Enoxaparin Sodium (Lovenox) 100 mg Q12 SC Last administered on 01/14/17 21:59 ; Admin Dose 100 MG; Start 01/11/17 at 00:00 Lorazepam (Ativan) 1 mg Q4H PRN IV AGITATION/ANXIETY Last administered on 01/12 23:00; Admin Dose 1 MG; Start 01/11/17 at 01:30 Aspirin (Halfprin) 81 mg DAILY PO Last administered on 01/14/17 08:36; Admin Dose 81 MG; Start 01/11/17 at 09:00 Miscellaneous Information 1 ea NOTE XX ; Start 01/11/17 at 02:00 Glucose (Glutose) 15 gm Q15M PRN PO DECREASED GLUCOSE; Start 01/11/17 at 02:00 Glucose (Glutose) 22.5 gm Q15M PRN PO DECREASED GLUCOSE; Start 01/11/17 at 02: 00 Dextrose (D50w Syringe) 25 ml Q15M PRN IV DECREASED GLUCOSE Last administered on 01/15/17 05:38; Admin Dose 25 ML; Start 01/11/17 at 02:00 Dextrose (D50w Syringe) 50 ml Q15M PRN IV DECREASED GLUCOSE; Start 01/11/17 at 02:00 Glucagon (Glucagen) 1 mg Q15M PRN IM DECREASED GLUCOSE; Start 01/11/17 at 02: 00 Glucose 15 gm 15 gm Q15M PRN BUCCAL DECREASED GLUCOSE; Start 01/11/17 at 02:00 Norepinephrine 16 mg/Dextrose 500 ml @ 0 mls/hr TITRATE IV Last administered on 01/14/17 02:42; Admin Dose 9.37 MLS/HR; Start 01/11/17 at 15:00 Fentanyl 100 ml @ 2.5 mls/hr TITRATE IV Last administered on 01/14/17 08:37 ; Admin Dose 7.5 MLS/HR; Start 01/11/17 at 23:30; Status Future hold Midazolam HCl (Versed) 50 ml @ 1 mls/hr TITRATE IV Last administered on 08:14; Admin Dose 9 MLS/HR; Start 01/12/17 at 01:30; Status Future hold Insulin Aspart (Adult SC Insulin - Mild Algorithm)... Q4 SC Last administered on 01/12/17 17:28; Admin Dose 1 UNIT; Start 01/12/17 at 09:00 Dobutamine HCl/ Dextrose 250 ml @ 7.748 mls/ hr TITRATE IV Last administered on 01/14/17 07:23; Admin Dose 12.396 MLS/HR; Start 01/12/17 at 12:30 Amiodarone HCl (Cordarone) 200 mg TID PO Last administered on 01/15/17 01:33 ; Admin Dose 200 MG; Start 01/12/17 at 21:00 Benazepril HCl (Lotensin) 5 mg DAILY PO ; Start 01/15/17 at 09:00 LISSA MUNOZ MD Jan 15, 2017 08:46
[2017-01-15] MEDS ORDERED: MAGNESIUM SULFATE 4 GM/100 ML 100 ML IVPB ONE (10:30)
--- NOTE | 2017-01-15 11:17 | CONS ---
Date/Time of Note Date/Time of Note DATE: 01/15/17 TIME: 11:15 Consult Date/Type/Reason Admit Date/Time Jan 10, 2017 at 22:38 Type of Consultation: Pulmonary Ordering Provider: KB CAMPO Subjective Patient extubated yesterday following adequate CPAP trial. Somnolent today opens eyes but does not follow commands. Objective Vital Signs Date Time Temp Pulse Resp B/P Pulse Ox O2 Delivery O2 Flow Rate FiO2 01/15/17 09:00 131 23 107/82 94 Mask 6.0 01/15/17 08:10 100 01/15/17 08:00 98.1 Intake and Output 01/14/17 01/14/17 01/15/17 15:00 23:00 07:00 Intake Total 398.136 ml 3.75 ml Output Total 1485 ml 1035 ml 1160 ml Balance -1086.864 ml -1031.25 ml -1160 ml Exam PHYSICAL EXAMINATION GENERAL: Well-nourished well-developed lady on Ventimask oxygen. VITAL SIGNS: see below. HEENT: Pupils equal, round, and reactive to light. CARDIAC: S1, S2, CHEST: Diminished air entry bilaterally. ABDOMEN: Mildly distended. Bowel sounds present no guarding or rebound EXTREMITIES: No cyanosis, clubbing edema +1 NEUROLOGIC: Generalized weakness Results/Medications Result Diagram: 01/15/17 0530 01/15/17 0530 Results 24 hrs Laboratory Tests Test 01/14/17 13:00 01/14/17 17:00 01/14/17 17:10 01/14/17 22:01 Bedside Glucose 73 88 71 Blood Gas Specimen Source Blood arterial Arterial Blood Date Drawn 01/14/2017 4:50:39 PM Arterial Blood pH (Temp corrected) 7.406 Arterial Blood pCO2 (Temp correct) 43.2 Arterial Blood pO2 (Temp corrected) 92.6 Arterial Blood HCO3 26.5 H Arterial Blood Base Excess 1.5 Arterial Blood Oxygen Saturation 96.2 Nik Test ACCEPTAB Arterial Blood Gas Puncture Site Right Radial Arterial Blood Carboxyhemoglobin 0.2 Arterial Blood Methemoglobin 0.3 Blood Gas A-a O2 Differential 70.5 H Oxyhemoglobin Percent 95.7 Total Hemoglobin 12.8 Blood Gas Temperature 37.0 Blood Gas Actual Respiration Rate 18 Blood Gas Modality VENT - CPAP FiO2 30.0 Blood Gas Tidal Volume 496.0 Blood Gas Low PEEP Setting 5.0 Blood Gas Pressure Support 10 Blood Gas Notified Whom IRMA DESAI Blood Gas Notified Time 01/14/2017 5:09:35 PM Test 01/15/17 01:32 01/15/17 05:30 01/15/17 05:34 01/15/17 06:12 Bedside Glucose 71 63 L 112 White Blood Count 5.3 Red Blood Count 4.24 Hemoglobin 11.7 L Hematocrit 38.1 Mean Corpuscular Volume 89.9 Mean Corpuscular Hemoglobin 27.6 L Mean Corpuscular Hemoglobin Concent 30.7 L Red Cell Distribution Width 20.6 H Platelet Count 181 Mean Platelet Volume 9.4 Neutrophils % 66.1 Lymphocytes % 16.6 Monocytes % 9.1 Eosinophils % 7.6 H Basophils % 0.4 Nucleated Red Blood Cells % 0.0 Neutrophils # 3.5 Lymphocytes # 0.9 Monocytes # 0.5 Eosinophils # 0.4 Basophils # 0.0 Nucleated Red Blood Cells # 0.0 Sodium Level 144 Potassium Level 3.9 Chloride Level 102 Carbon Dioxide Level 32 H Anion Gap 14 Blood Urea Nitrogen 8 Creatinine 0.86 Glucose Level 71 Calcium Level 8.4 Phosphorus Level 4.1 Magnesium Level 1.0 L Test 01/15/17 07:00 01/15/17 08:33 Blood Gas Specimen Source Blood arterial Arterial Blood Date Drawn 01/15/2017 6:45:33 AM Arterial Blood pH (Temp corrected) 7.404 Arterial Blood pCO2 (Temp correct) 50.1 H Arterial Blood pO2 (Temp corrected) 100.0 Arterial Blood HCO3 30.6 H Arterial Blood Base Excess 4.9 H Arterial Blood Oxygen Saturation 97.2 Nik Test N/A Arterial Blood Gas Puncture Site Right Brachial Arterial Blood Carboxyhemoglobin 0.2 Arterial Blood Methemoglobin 0.3 Blood Gas A-a O2 Differential 280.0 H Oxyhemoglobin Percent 96.7 Total Hemoglobin 12.9 Blood Gas Temperature 37.0 Blood Gas Modality MASK - SIMPLE FiO2 61.0 Blood Gas Notified Whom Adriel MARIA Blood Gas Notified Time 01/15/2017 6:56:16 AM Bedside Glucose 85 Medications Current Medications Acetaminophen (Tylenol Tab) 650 mg Q6H PRN PO PAIN LEVEL 1-3 OR FEVER Last administered on 01/11/17t 00:23; Admin Dose 650 MG; Start 01/11/17 at 00:00 Docusate Sodium (Colace) 100 mg Q12H PRN PO CONSTIPATION; Start 01/11/17 at 00 :00 Bisacodyl (Dulcolax) 5 mg DAILY PRN PO CONSTIPATION; Start 01/11/17 at 00:00 Famotidine (Pepcid) 20 mg Q12 PO Last administered on 01/15/17 08:41; Admin Dose 20 MG; Start 01/11/17 at 00:00 Enoxaparin Sodium (Lovenox) 100 mg Q12 SC Last administered on 01/15/17 08:43 ; Admin Dose 100 MG; Start 01/11/17 at 00:00 Lorazepam (Ativan) 1 mg Q4H PRN IV AGITATION/ANXIETY Last administered on 01/12 23:00; Admin Dose 1 MG; Start 01/11/17 at 01:30 Aspirin (Halfprin) 81 mg DAILY PO Last administered on 01/15/17 08:41; Admin Dose 81 MG; Start 01/11/17 at 09:00 Miscellaneous Information 1 ea NOTE XX ; Start 01/11/17 at 02:00 Glucose (Glutose) 15 gm Q15M PRN PO DECREASED GLUCOSE; Start 01/11/17 at 02:00 Glucose (Glutose) 22.5 gm Q15M PRN PO DECREASED GLUCOSE; Start 01/11/17 at 02: 00 Dextrose (D50w Syringe) 25 ml Q15M PRN IV DECREASED GLUCOSE Last administered on 01/15/17 05:38; Admin Dose 25 ML; Start 01/11/17 at 02:00 Dextrose (D50w Syringe) 50 ml Q15M PRN IV DECREASED GLUCOSE; Start 01/11/17 at 02:00 Glucagon (Glucagen) 1 mg Q15M PRN IM DECREASED GLUCOSE; Start 01/11/17 at 02: 00 Glucose 15 gm 15 gm Q15M PRN BUCCAL DECREASED GLUCOSE; Start 01/11/17 at 02:00 Norepinephrine 16 mg/Dextrose 500 ml @ 0 mls/hr TITRATE IV Last administered on 01/14/17 02:42; Admin Dose 9.37 MLS/HR; Start 01/11/17 at 15:00 Fentanyl 100 ml @ 2.5 mls/hr TITRATE IV Last administered on 01/14/17 08:37 ; Admin Dose 7.5 MLS/HR; Start 01/11/17 at 23:30; Status Future hold Midazolam HCl (Versed) 50 ml @ 1 mls/hr TITRATE IV Last administered on 08:14; Admin Dose 9 MLS/HR; Start 01/12/17 at 01:30; Status Future hold Insulin Aspart (Adult SC Insulin - Mild Algorithm)... Q4 SC Last administered on 01/12/17 17:28; Admin Dose 1 UNIT; Start 01/12/17 at 09:00 Dobutamine HCl/ Dextrose 250 ml @ 7.748 mls/ hr TITRATE IV Last administered on 01/14/17 07:23; Admin Dose 12.396 MLS/HR; Start 01/12/17 at 12:30 Amiodarone HCl (Cordarone) 200 mg TID PO Last administered on 01/15/17 08:41 ; Admin Dose 200 MG; Start 01/12/17 at 21:00 Benazepril HCl (Lotensin) 5 mg DAILY PO Last administered on 01/15/17 08:42; Admin Dose 5 MG; Start 01/15/17 at 09:00 Carvedilol 6.25 mg 6.25 mg BID NGT ; Start 01/15/17 at 09:00 Magnesium Sulfate (Magnesium Sulfate 4 Gm/100 ml) 100 ml @ 25 mls/hr ONCE ONCE IVPB Last administered on 01/15/17 10:58; Admin Dose 25 MLS/HR; Start 01/15/17 at 10:30; Stop 01/15/17 at 14:29 Assessment/Plan Chief Complaint/Hosp Course IMP: 1. Shock, most likely a component of cardiogenic, in view of her underlying cardiomyopathy, however, cannot exclude a co-existing distributive cause. + Cx for G+ rods (unclear significance) 2. Respiratory failure secondary to her underlying cardiomyopathy and volume overload. Status post extubation 3. Atrial flutter with variable response. 4. Congestive heart failure. 5. Acute kidney injury, likely cardiorenal. 6. Substance abuse with methamphetamines. 7. Diabetes. 8. Encephalopathy possibly toxic metabolic. RECOMMENDATIONS: 1. Trial of noninvasive positive pressure ventilation 2. Vasopressors as needed 3. Aspiration precautions 4. Continue antibiotics per primary team 5. Consider neurology evaluation for persistent encephalopathy rule out [employer] infection with lumbar puncture? Problems: KELLY DEL CID MD, [facility] Jan 15, 2017 11:17
[2017-01-15] MEDS: LORAZEPAM 2 MG INJ IV PRN ×2 (12:14→17:05)
--- NOTE | 2017-01-15 12:28 | RADRPT ---
PROCEDURE: XR Chest. CLINICAL INDICATION: Pneumonia, CHF. TECHNIQUE: Single AP portable chest. COMPARISON: 06/25/2016 Chest x-ray FINDINGS: The cardiomediastinal silhouette is enlarged. Opacification of the left lung base compatible with pl eural effusion and/or atelectasis/consolidation. Mild vascular prominence. NG tube tip overlying the stomach fundus. No pneumothorax. The osseous structures and soft tissues are unremarkable. IMPRESSION: 1. Cardiomegaly and mild vascular congestion. There are too small pleural effusion and left base con solidation or atelectasis . RPTAT:AAJJ Physician Beverley Date Time Electronically viewed and signed by Physician Beverley on 01/15/2017 12:28 ROBERT/
[2017-01-15 13:01] LABS: AADO2 Arterial 72.7 mmHg (7.0-24.0); Allen Test ACCEPTAB; Arterial Base Excess 6.4 mmol/L (-3.0-3); Arterial COHb 0.3 % (0.0-3.0); Arterial Fraction of Oxyhgb 95.3 % (93.0-99.0); Arterial HCO3 32.3 mmol/L (22.0-26.0); Arterial MetHb 0.2 % (0.0-1.5); Arterial Total Hemglobin 12.9 g/dl (12.0-18.0); Blood Gas IEPAP 18/8; MODE MASK - BIPAP
--- NOTE | 2017-01-15 14:38 | RADRPT ---
PROCEDURE: CT Brain without contrast. CLINICAL INDICATION: Encephalopathy. Altered mental status. TECHNIQUE: A CT of the brain was performed on multidetector high-resolution CT scanner utilizing a xial sections from the skull base through the vertex without contrast. The scan was reviewed in sof t tissue brain and high frequency resolution bone algorithm windows. Images were reviewed on a high -resolution PACS workstation. One or more the following does reduction techniques were utilized: Aut omated exposure control, adjustment of the mA/ or kV according to patient's size, or use of iterativ e reconstruction technique. The exam CTDI = 40.96 mGy and the DLP = 630.2 mGy-cm. COMPARISON: Brain CT 06/25/2016. Brain MRI 06/27/2016. FINDINGS: Postsurgical changes of prior left frontal craniotomy are noted. There is similar encephalomalacia in the left frontal operculum and left lateral frontal lobe. The ventricles and sulci are mildly prominent indicative of volume loss. There is no intracranial h emorrhage, mass effect or midline shift. No abnormal intra-axial or extra-axial fluid collections a re seen. The remainder of johnson/white matter differentiation is preserved. There are moderate patchy foci of hypoattenuation in the periventricular, deep, and subcortical whit e matter, which are nonspecific in etiology but likely reflect chronic small vessel ischemic changes . There are mild intracranial vascular calcifications consistent with atherosclerosis. The visualiz ed paranasal sinuses are essentially clear. IMPRESSION: 1. No acute intracranial hemorrhage, transcortical infarction or mass effect. 2. Prior left frontal craniotomy. Similar encephalomalacia in the left frontal operculum and left l ateral frontal lobe. 3. Mild intracranial atherosclerosis and moderate chronic small vessel ischemic changes. 4. Mild generalized cerebral volume loss. RPTAT: JJ .Maggi Lopez MD, MD Date Time Electronically viewed and signed by .Maggi Lopez MD, MD on 01/15/2017 14:38 .N/
--- NOTE | 2017-01-15 15:27 | PN ---
Date/Time of Note Date/Time of Note DATE: 01/15/17 TIME: 15:25 Assessment/Plan VTE Prophylaxis VTE Prophylaxis Intervention: LMWH Assessment/Plan Chief Complaint/Hosp Course 1. Acute respiratory failure secondary to acute on chronic systolic CHF exacerbation-extubated today Continue BiPAP Continue diuresis 2. Paroxysmal A-fib with RVR in the setting of methamphetamine use-stable Patient is status post diltiazem with consequential hypotension Continue amiodarone and Lovenox 3. Cardiogenic shock-stable 4. Chronic Moderate-severe MR 5. DIANNA-resolved 6. Acute encephalopathy possibly secondary to methamphetamine withdrawal CT head shows no acute findings Neurology consultation obtained Prophylaxis: Lovenox Problems: Subjective 24 Hr Interval Summary Subjective hx not possible: pt non-verbal Exam/Review of Systems Vital Signs Vitals Vital Signs Date Time Temp Pulse Resp B/P Pulse Ox O2 Delivery O2 Flow Rate FiO2 01/15/17 14:00 116 20 30 01/15/17 13:30 103/82 97 01/15/17 13:00 97.9 BIPAP 01/15/17 09:00 6.0 Intake and Output 01/14/17 01/14/17 01/15/17 15:00 23:00 07:00 Intake Total 398.136 ml 3.75 ml Output Total 1485 ml 1035 ml 1160 ml Balance -1086.864 ml -1031.25 ml -1160 ml Exam Constitutional: non-verbal Psych: confusion Respiratory: clear to auscultation Cardiovascular: regular rate and rhythm Gastrointestinal: soft, No distended Musculoskeletal: nl extremities to inspection Results Result Diagram: 01/15/17 0530 01/15/17 0530 Results 24 hrs Laboratory Tests Test 01/14/17 17:00 01/14/17 17:10 01/14/17 22:01 01/15/17 01:32 Blood Gas Specimen Source Blood arterial Arterial Blood Date Drawn 01/14/2017 4:50:39 PM Arterial Blood pH (Temp corrected) 7.406 Arterial Blood pCO2 (Temp correct) 43.2 Arterial Blood pO2 (Temp corrected) 92.6 Arterial Blood HCO3 26.5 H Arterial Blood Base Excess 1.5 Arterial Blood Oxygen Saturation 96.2 Nik Test ACCEPTAB Arterial Blood Gas Puncture Site Right Radial Arterial Blood Carboxyhemoglobin 0.2 Arterial Blood Methemoglobin 0.3 Blood Gas A-a O2 Differential 70.5 H Oxyhemoglobin Percent 95.7 Total Hemoglobin 12.8 Blood Gas Temperature 37.0 Blood Gas Actual Respiration Rate 18 Blood Gas Modality VENT - CPAP FiO2 30.0 Blood Gas Tidal Volume 496.0 Blood Gas Low PEEP Setting 5.0 Blood Gas Pressure Support 10 Blood Gas Notified Whom IRMA DESAI Blood Gas Notified Time 01/14/2017 5:09:35 PM Bedside Glucose 88 71 71 Test 01/15/17 05:30 01/15/17 05:34 01/15/17 06:12 01/15/17 07:00 White Blood Count 5.3 Red Blood Count 4.24 Hemoglobin 11.7 L Hematocrit 38.1 Mean Corpuscular Volume 89.9 Mean Corpuscular Hemoglobin 27.6 L Mean Corpuscular Hemoglobin Concent 30.7 L Red Cell Distribution Width 20.6 H Platelet Count 181 Mean Platelet Volume 9.4 Neutrophils % 66.1 Lymphocytes % 16.6 Monocytes % 9.1 Eosinophils % 7.6 H Basophils % 0.4 Nucleated Red Blood Cells % 0.0 Neutrophils # 3.5 Lymphocytes # 0.9 Monocytes # 0.5 Eosinophils # 0.4 Basophils # 0.0 Nucleated Red Blood Cells # 0.0 Sodium Level 144 Potassium Level 3.9 Chloride Level 102 Carbon Dioxide Level 32 H Anion Gap 14 Blood Urea Nitrogen 8 Creatinine 0.86 Glucose Level 71 Calcium Level 8.4 Phosphorus Level 4.1 Magnesium Level 1.0 L Bedside Glucose 63 L 112 Blood Gas Specimen Source Blood arterial Arterial Blood Date Drawn 01/15/2017 6:45:33 AM Arterial Blood pH (Temp corrected) 7.404 Arterial Blood pCO2 (Temp correct) 50.1 H Arterial Blood pO2 (Temp corrected) 100.0 Arterial Blood HCO3 30.6 H Arterial Blood Base Excess 4.9 H Arterial Blood Oxygen Saturation 97.2 Nik Test N/A Arterial Blood Gas Puncture Site Right Brachial Arterial Blood Carboxyhemoglobin 0.2 Arterial Blood Methemoglobin 0.3 Blood Gas A-a O2 Differential 280.0 H Oxyhemoglobin Percent 96.7 Total Hemoglobin 12.9 Blood Gas Temperature 37.0 Blood Gas Modality MASK - SIMPLE FiO2 61.0 Blood Gas Notified Whom Adriel MARIA Blood Gas Notified Time 01/15/2017 6:56:16 AM Test 01/15/17 08:33 01/15/17 11:50 01/15/17 12:10 01/15/17 12:41 Bedside Glucose 85 90 Blood Gas Specimen Source Blood arterial Arterial Blood Date Drawn 01/15/2017 12:30:26 PM Arterial Blood pH (Temp corrected) 7.409 Arterial Blood pCO2 (Temp correct) 52.3 H Arterial Blood pO2 (Temp corrected) 79.8 L Arterial Blood HCO3 32.3 H Arterial Blood Base Excess 6.4 H Arterial Blood Oxygen Saturation 95.8 Nik Test ACCEPTAB Arterial Blood Gas Puncture Site Left Radial Arterial Blood Carboxyhemoglobin 0.3 Arterial Blood Methemoglobin 0.2 Blood Gas A-a O2 Differential 72.7 H Oxyhemoglobin Percent 95.3 Total Hemoglobin 12.9 Blood Gas Temperature 37.0 Blood Gas Respiration Rate 20.0 Blood Gas Actual Respiration Rate 20 Blood Gas Modality MASK - BIPAP FiO2 30.0 Blood Gas IPAP/EPAP Ratio 18/8 Blood Gas Notified Whom JLD Blood Gas Notified Time 01/15/2017 1:01:11 PM Lab Scanned Report REFERENCE LAB Medications Medications Current Medications Acetaminophen (Tylenol Tab) 650 mg Q6H PRN PO PAIN LEVEL 1-3 OR FEVER Last administered on 01/11/17 00:23; Admin Dose 650 MG; Start 01/11/17 at 00:00 Docusate Sodium (Colace) 100 mg Q12H PRN PO CONSTIPATION; Start 01/11/17 at 00 :00 Bisacodyl (Dulcolax) 5 mg DAILY PRN PO CONSTIPATION; Start 01/11/17 at 00:00 Famotidine (Pepcid) 20 mg Q12 PO Last administered on 01/15/17 08:41; Admin Dose 20 MG; Start 01/11/17 at 00:00 Enoxaparin Sodium (Lovenox) 100 mg Q12 SC Last administered on 01/15/17 08:43 ; Admin Dose 100 MG; Start 01/11/17 at 00:00 Lorazepam (Ativan) 1 mg Q4H PRN IV AGITATION/ANXIETY Last administered on 01/15 12:14; Admin Dose 1 MG; Start 01/11/17 at 01:30 Aspirin (Halfprin) 81 mg DAILY PO Last administered on 01/15/17 08:41; Admin Dose 81 MG; Start 01/11/17 at 09:00 Miscellaneous Information 1 ea NOTE XX ; Start 01/11/17 at 02:00 Glucose (Glutose) 15 gm Q15M PRN PO DECREASED GLUCOSE; Start 01/11/17 at 02:00 Glucose (Glutose) 22.5 gm Q15M PRN PO DECREASED GLUCOSE; Start 01/11/17 at 02: 00 Dextrose (D50w Syringe) 25 ml Q15M PRN IV DECREASED GLUCOSE Last administered on 01/15/17 05:38; Admin Dose 25 ML; Start 01/11/17 at 02:00 Dextrose (D50w Syringe) 50 ml Q15M PRN IV DECREASED GLUCOSE; Start 01/11/17 at 02:00 Glucagon (Glucagen) 1 mg Q15M PRN IM DECREASED GLUCOSE; Start 01/11/17 at 02: 00 Glucose 15 gm 15 gm Q15M PRN BUCCAL DECREASED GLUCOSE; Start 01/11/17 at 02:00 Norepinephrine 16 mg/Dextrose 500 ml @ 0 mls/hr TITRATE IV Last administered on 01/14/17 02:42; Admin Dose 9.37 MLS/HR; Start 01/11/17 at 15:00 Fentanyl 100 ml @ 2.5 mls/hr TITRATE IV Last administered on 01/14/17 08:37 ; Admin Dose 7.5 MLS/HR; Start 01/11/17 at 23:30; Status Future hold Midazolam HCl (Versed) 50 ml @ 1 mls/hr TITRATE IV Last administered on 08:14; Admin Dose 9 MLS/HR; Start 01/12/17 at 01:30; Status Future hold Insulin Aspart (Adult SC Insulin - Mild Algorithm)... Q4 SC Last administered on 01/12/17 17:28; Admin Dose 1 UNIT; Start 01/12/17 at 09:00 Dobutamine HCl/ Dextrose 250 ml @ 7.748 mls/ hr TITRATE IV Last administered on 01/14/17 07:23; Admin Dose 12.396 MLS/HR; Start 01/12/17 at 12:30 Amiodarone HCl (Cordarone) 200 mg TID PO Last administered on 01/15/17 12:58 ; Admin Dose 200 MG; Start 01/12/17 at 21:00 Benazepril HCl (Lotensin) 5 mg DAILY PO Last administered on 01/15/17 08:42; Admin Dose 5 MG; Start 01/15/17 at 09:00 Carvedilol (Coreg) 6.25 mg BID NGT ; Start 01/15/17 at 09:00 MAURILIO AMEZQUITA Jan 15, 2017 15:27
--- NOTE | 2017-01-15 23:17 | RADRPT ---
PROCEDURE: Ultrasound guidance for placement of needle in right upper extremity vein. CLINICAL INDICATION: PICC placement. TECHNIQUE: Limited sonography of the right upper extremity was performed. Ultrasound images were recorded and s tored in the patient's medical record. COMPARISON: Chest radiograph of the same day. FINDINGS: The ultrasound images demonstrate a patent right upper extremity vein. The PICC line was inserted by the PICC line nurse. IMPRESSION: 1. Ultrasound guidance for a needle placement in a right upper extremity vein. 2. The visualized right upper extremity vein is patent. RPTAT: HFN .Maggi Lopez MD, MD Date Time Electronically viewed and signed by .Maggi Lopez MD, MD on 01/15/2017 23:17 .N/
[2017-01-16] VITALS (48 sets, daily range): BP systolic 76–122; BP diastolic 48–102; PULSE 90–115; RESP 11–31
[2017-01-16] MEDS ORDERED: VANCOMYCIN IV PER PHARMACY XX SCH (00:30)
[2017-01-16] MEDS: Insulin NOVOLOG SS MILD Algorithm (NPO/TPN/ENTERAL FEEDS) SC SCH ×6 (01:00→21:00)
[2017-01-16] MEDS ORDERED: VANCOMYCIN 2 GM in SOD CHLORIDE 0.9% 500 ML IVPB ONE (01:00)
[2017-01-16] MEDS: ALBUTEROL/IPRATROPIUM (NEB) 3 ML AMP HHN SCH ×4 (01:13→20:11)
[2017-01-16] MEDS: LORAZEPAM 2 MG INJ IV PRN (02:34)
[2017-01-16 05:36] LABS: BASOPHILS % 0.4 % (0.0-2.0); EOSINOPHILS # 0.3 10^3/ul (0.0-0.5); EOSINOPHILS % 7.4 % (0.0-7.0); HEMATOCRIT 37.2 % (37.0-47.0); HEMOGLOBIN 11.7 g/dl (12.0-16.0); LYMPHOCYTES # 0.8 10^3/ul (0.8-2.9); LYMPHOCYTES % 17.6 % (15.0-51.0); MEAN CORPUSCULAR HEMOGLOBIN 28.4 pg (29.0-33.0); MEAN CORPUSCULAR HGB CONC 31.5 g/dl (32.0-37.0); MEAN CORPUSCULAR VOLUME 90.3 fl (82.0-101.0); MONOCYTE # 0.4 10^3/ul (0.3-0.9); MONOCYTES % 8.7 % (0.0-11.0); NEUTROPHILS % 65.7 % (39.0-77.0); PLATELET COUNT 179 10^3/UL (140-415); RED BLOOD COUNT 4.12 10^6/ul (4.20-5.40); RED CELL DISTRIBUTION WIDTH 19.7 % (11.5-14.5); WHITE BLOOD COUNT 4.6 10^3/ul (4.8-10.8)
[2017-01-16] MEDS: FUROSEMIDE 40 MG TAB PO SCH (05:48)
[2017-01-16 06:24] LABS: CALCIUM 8.5 mg/dl (8.4-10.2); CREATININE 0.72 mg/dl (0.44-1.00); MAGNESIUM 1.5 mg/dl (1.7-2.5); POTASSIUM 3.5 mmol/L (3.5-5.1)
[2017-01-16 08:09] LABS: AADO2 Arterial 54.9 mmHg (7.0-24.0); Allen Test ACCEPTAB; Arterial Base Excess 7.2 mmol/L (-3.0-3); Arterial COHb 0.9 % (0.0-3.0); Arterial HCO3 33.4 mmol/L (22.0-26.0); Arterial MetHb 0.3 % (0.0-1.5); Arterial Total Hemglobin 13.3 g/dl (12.0-18.0); Blood Gas IEPAP 18/8; MODE MASK - BIPAP
[2017-01-16] MEDS: BENAZEPRIL 5 MG TAB PO SCH (09:00)
--- NOTE | 2017-01-16 09:18 | CONS ---
Date/Time of Note Date/Time of Note DATE: 01/16/17 TIME: 09:16 Consult Date/Type/Reason Admit Date/Time Jan 10, 2017 at 22:38 Type of Consultation: Pulmonary Ordering Provider: BK CAMPO Subjective Patient awake alert oriented on BiPAP. Objective Vital Signs Date Time Temp Pulse Resp B/P Pulse Ox O2 Delivery O2 Flow Rate FiO2 01/16/17 06:00 103 20 89/71 100 BIPAP 01/16/17 05:10 30 01/16/17 04:00 97.9 01/15/17 09:00 6.0 Intake and Output 01/15/17 01/15/17 01/16/17 15:00 23:00 07:00 Intake Total 120 ml 190 ml 500 ml Output Total 1530 ml 1920 ml 765 ml Balance -1410 ml -1730 ml -265 ml Exam PHYSICAL EXAMINATION GENERAL: Well-nourished well-developed lady on BiPAP. VITAL SIGNS: see below. HEENT: Pupils equal, round, and reactive to light. CARDIAC: S1, S2, CHEST: Diminished air entry bilaterally. ABDOMEN: Mildly distended. Bowel sounds present no guarding or rebound EXTREMITIES: No cyanosis, clubbing edema +1 NEUROLOGIC: Generalized weakness Results/Medications Result Diagram: 01/16/17 0450 01/16/17 0450 Results 24 hrs Laboratory Tests Test 01/15/17 11:50 01/15/17 12:10 01/15/17 12:41 01/15/17 16:27 Blood Gas Specimen Source Blood arterial Arterial Blood Date Drawn 01/15/2017 12:30:26 PM Arterial Blood pH (Temp corrected) 7.409 Arterial Blood pCO2 (Temp correct) 52.3 H Arterial Blood pO2 (Temp corrected) 79.8 L Arterial Blood HCO3 32.3 H Arterial Blood Base Excess 6.4 H Arterial Blood Oxygen Saturation 95.8 Nik Test ACCEPTAB Arterial Blood Gas Puncture Site Left Radial Arterial Blood Carboxyhemoglobin 0.3 Arterial Blood Methemoglobin 0.2 Blood Gas A-a O2 Differential 72.7 H Oxyhemoglobin Percent 95.3 Total Hemoglobin 12.9 Blood Gas Temperature 37.0 Blood Gas Respiration Rate 20.0 Blood Gas Actual Respiration Rate 20 Blood Gas Modality MASK - BIPAP FiO2 30.0 Blood Gas IPAP/EPAP Ratio 18/8 Blood Gas Notified Whom JLD Blood Gas Notified Time 01/15/2017 1:01:11 PM Lab Scanned Report REFERENCE LAB Bedside Glucose 90 85 Test 01/15/17 21:12 01/16/17 02:29 01/16/17 04:50 01/16/17 07:00 Bedside Glucose 89 80 96 White Blood Count 4.6 L Red Blood Count 4.12 L Hemoglobin 11.7 L Hematocrit 37.2 Mean Corpuscular Volume 90.3 Mean Corpuscular Hemoglobin 28.4 L Mean Corpuscular Hemoglobin Concent 31.5 L Red Cell Distribution Width 19.7 H Platelet Count 179 Mean Platelet Volume 10.0 Neutrophils % 65.7 Lymphocytes % 17.6 Monocytes % 8.7 Eosinophils % 7.4 H Basophils % 0.4 Nucleated Red Blood Cells % 0.0 Neutrophils # 3.0 Lymphocytes # 0.8 Monocytes # 0.4 Eosinophils # 0.3 Basophils # 0.0 Nucleated Red Blood Cells # 0.0 Sodium Level 142 Potassium Level 3.5 Chloride Level 99 Carbon Dioxide Level 37 H Anion Gap 10 Blood Urea Nitrogen 6 L Creatinine 0.72 Glucose Level 98 Calcium Level 8.5 Phosphorus Level 3.0 Magnesium Level 1.5 L Blood Gas Specimen Source Blood arterial Arterial Blood Date Drawn 01/16/2017 7:30:47 AM Arterial Blood pH (Temp corrected) 7.412 Arterial Blood pCO2 (Temp correct) 53.6 H Arterial Blood pO2 (Temp corrected) 96.0 Arterial Blood HCO3 33.4 H Arterial Blood Base Excess 7.2 H Arterial Blood Oxygen Saturation 97.2 Nik Test ACCEPTAB Arterial Blood Gas Puncture Site Left Radial Arterial Blood Carboxyhemoglobin 0.9 Arterial Blood Methemoglobin 0.3 Blood Gas A-a O2 Differential 54.9 H Oxyhemoglobin Percent 96.0 Total Hemoglobin 13.3 Blood Gas Temperature 37.0 Blood Gas Respiration Rate 20.0 Blood Gas Actual Respiration Rate 22 Blood Gas Modality MASK - BIPAP FiO2 30.0 Blood Gas IPAP/EPAP Ratio 18/8 Blood Gas Notified Whom JLD Blood Gas Notified Time 01/16/2017 8:09:22 AM Medications Current Medications Acetaminophen (Tylenol Tab) 650 mg Q6H PRN PO PAIN LEVEL 1-3 OR FEVER Last administered on 01/11/17t 00:23; Admin Dose 650 MG; Start 01/11/17 at 00:00 Docusate Sodium (Colace) 100 mg Q12H PRN PO CONSTIPATION; Start 01/11/17 at 00 :00 Bisacodyl (Dulcolax) 5 mg DAILY PRN PO CONSTIPATION; Start 01/11/17 at 00:00 Famotidine (Pepcid) 20 mg Q12 PO Last administered on 01/15/17 21:14; Admin Dose 20 MG; Start 01/11/17 at 00:00 Enoxaparin Sodium (Lovenox) 100 mg Q12 SC Last administered on 01/15/17 21:18 ; Admin Dose 100 MG; Start 01/11/17 at 00:00 Lorazepam (Ativan) 1 mg Q4H PRN IV AGITATION/ANXIETY Last administered on 01/16 02:34; Admin Dose 1 MG; Start 01/11/17 at 01:30 Aspirin (Halfprin) 81 mg DAILY PO Last administered on 01/15/17 08:41; Admin Dose 81 MG; Start 01/11/17 at 09:00 Miscellaneous Information 1 ea NOTE XX ; Start 01/11/17 at 02:00 Glucose (Glutose) 15 gm Q15M PRN PO DECREASED GLUCOSE; Start 01/11/17 at 02:00 Glucose (Glutose) 22.5 gm Q15M PRN PO DECREASED GLUCOSE; Start 01/11/17 at 02: 00 Dextrose (D50w Syringe) 25 ml Q15M PRN IV DECREASED GLUCOSE Last administered on 01/15/17 05:38; Admin Dose 25 ML; Start 01/11/17 at 02:00 Dextrose (D50w Syringe) 50 ml Q15M PRN IV DECREASED GLUCOSE; Start 01/11/17 at 02:00 Glucagon (Glucagen) 1 mg Q15M PRN IM DECREASED GLUCOSE; Start 01/11/17 at 02: 00 Glucose 15 gm 15 gm Q15M PRN BUCCAL DECREASED GLUCOSE; Start 01/11/17 at 02:00 Norepinephrine 16 mg/Dextrose 500 ml @ 0 mls/hr TITRATE IV Last administered on 01/14/17 02:42; Admin Dose 9.37 MLS/HR; Start 01/11/17 at 15:00 Fentanyl 100 ml @ 2.5 mls/hr TITRATE IV Last administered on 01/14/17 08:37 ; Admin Dose 7.5 MLS/HR; Start 01/11/17 at 23:30; Status Future hold Midazolam HCl (Versed) 50 ml @ 1 mls/hr TITRATE IV Last administered on 08:14; Admin Dose 9 MLS/HR; Start 01/12/17 at 01:30; Status Future hold Insulin Aspart (Adult SC Insulin - Mild Algorithm)... Q4 SC Last administered on 01/12/17 17:28; Admin Dose 1 UNIT; Start 01/12/17 at 09:00 Dobutamine HCl/ Dextrose 250 ml @ 7.748 mls/ hr TITRATE IV Last administered on 01/14/17 07:23; Admin Dose 12.396 MLS/HR; Start 01/12/17 at 12:30 Amiodarone HCl (Cordarone) 200 mg TID PO Last administered on 01/15/17 21:14 ; Admin Dose 200 MG; Start 01/12/17 at 21:00 Benazepril HCl (Lotensin) 5 mg DAILY PO Last administered on 01/15/17 08:42; Admin Dose 5 MG; Start 01/15/17 at 09:00 Carvedilol (Coreg) 6.25 mg BID NGT Last administered on 01/15/17 21:14; Admin Dose 6.25 MG; Start 01/15/17 at 09:00 IV Flush 10 ml 10 ml PRN PRN IV IV PROTOCOL; Start 01/15/17 at 21:30 Vancomycin HCl/ Sodium Chloride (Vancocin/NS) 250 ml @ 83.333 mls/ hr Q12H IVPB ; Start 01/16/17 at 13:00 Miscellaneous Information (*Rx Drug Level Order Reminder*) VANCOMYCIN TROUGH AT 1200 ONCE ONCE XX ; Start 01/17/17 at 12:00; Stop 01/17/17 at 12:01 Assessment/Plan Chief Complaint/Hosp Course IMP: 1. Shock, most likely a component of cardiogenic, in view of her underlying cardiomyopathy, however, cannot exclude a co-existing distributive cause. + Cx for G+ rods (unclear significance) 2. Respiratory failure secondary to her underlying cardiomyopathy and volume overload. Status post extubation trial of BiPAP. 3. Atrial flutter with variable response. 4. Congestive heart failure. 5. Acute kidney injury, likely cardiorenal. 6. Substance abuse with methamphetamines. 7. Diabetes. 8. Encephalopathy possibly toxic metabolic. RECOMMENDATIONS: 1. As needed BiPAP. 2. Vasopressors as needed 3. Aspiration precautions 4. Continue antibiotics per primary team 5. Consider neurology evaluation for persistent encephalopathy rule out [employer] infection with lumbar puncture? Problems: KELLY DEL CID MD, [facility] Jan 16, 2017 09:18
[2017-01-16] MEDS: FAMOTIDINE 20 MG TAB PO SCH ×2 (09:58→21:00)
[2017-01-16] MEDS: AMIODARONE 200 MG TAB PO SCH ×3 (09:59→21:00)
[2017-01-16] MEDS: ASPIRIN (EC) 81 MG TAB PO SCH (09:59)
[2017-01-16] MEDS: ENOXAPARIN 100 MG/ML SYG SC SCH ×2 (10:01→21:25)
--- NOTE | 2017-01-16 10:40 | CONS ---
Date/Time of Note Date/Time of Note DATE: 01/16/17 TIME: 10:37 Assessment/Plan Assessment/Plan Chief Complaint/Hosp Course IMPRESSION 1. Hypotension/shock-improved off of pressors/inotropes 2. Atrial flutter with variable response and some mild RVR 3. History of cardiomyopathy with severely depressed left ventricular ejection fraction. 4. Congestive heart failure by chest x-ray, systolic by prior echo, acute on chronic. 5. Substance abuse including methamphetamines. 6. History of cerebrovascular accident. 7. Diabetes mellitus. 8. History of chronic obstructive pulmonary disease. Recc: -ICU tele monitoring -Continue now PO amio in attempt to return patient to SR -Continue ACEI/BB as tolerated -GIVD IVP digoxin doser -Follow resp status clsoely -Continue asa -Contneu lasix but change to IV and follow volume status clsoely Problems: Consultation Date/Type/Reason Admit Date/Time Jan 10, 2017 at 22:38 Initial Consult Date 01/11/2017 Type of Consultation: cardiology Reason for Consultation CHF/cardiomyopathy Referring Provider: KB CAMPO Exam/Review of Systems Vital Signs Vitals Vital Signs Date Time Temp Pulse Resp B/P Pulse Ox O2 Delivery O2 Flow Rate FiO2 01/16/17 06:00 103 20 89/71 100 BIPAP 01/16/17 05:10 30 01/16/17 04:00 97.9 01/15/17 09:00 6.0 Intake and Output 01/15/17 01/15/17 01/16/17 15:00 23:00 07:00 Intake Total 120 ml 190 ml 500 ml Output Total 1530 ml 1920 ml 765 ml Balance -1410 ml -1730 ml -265 ml Exam Review of Systems: CONSTITUTIONAL: No fevers, chills. PULMONARY: BIPap in place CARDIOVASCULAR: No chest pain/palpitations GASTROINTESTINAL: No nausea/vomiting. GENITOURINARY: No hematuria/dysuria. MUSCULOSKELETAL: No myagias/arthalgias. PSYCHIATRIC: The patient denies depression. NEUROLOGIC: No weakness Constitutional: alert Psych: no complaints Head: normocephalic ENMT: mucosa pink and moist Neck: jvd (9 cm water), supple Respiratory: diminished breath sounds (at bases/B) Cardiovascular: regular rate and rhythm Gastrointestinal: non-tender, soft Musculoskeletal: muscle tone (normal) Extremities: edema (trace/B) Neurological: other (No focal deficits) Results Result Diagram: 01/16/17 0450 01/16/17 0450 Results 24 hrs Laboratory Tests Test 01/15/17 11:50 01/15/17 12:10 01/15/17 12:41 01/15/17 16:27 Blood Gas Specimen Source Blood arterial Arterial Blood Date Drawn 01/15/2017 12:30:26 PM Arterial Blood pH (Temp corrected) 7.409 Arterial Blood pCO2 (Temp correct) 52.3 H Arterial Blood pO2 (Temp corrected) 79.8 L Arterial Blood HCO3 32.3 H Arterial Blood Base Excess 6.4 H Arterial Blood Oxygen Saturation 95.8 Nik Test ACCEPTAB Arterial Blood Gas Puncture Site Left Radial Arterial Blood Carboxyhemoglobin 0.3 Arterial Blood Methemoglobin 0.2 Blood Gas A-a O2 Differential 72.7 H Oxyhemoglobin Percent 95.3 Total Hemoglobin 12.9 Blood Gas Temperature 37.0 Blood Gas Respiration Rate 20.0 Blood Gas Actual Respiration Rate 20 Blood Gas Modality MASK - BIPAP FiO2 30.0 Blood Gas IPAP/EPAP Ratio 18 Blood Gas Notified Whom JLD Blood Gas Notified Time 01/15/2017 1:01:11 PM Lab Scanned Report REFERENCE LAB Bedside Glucose 90 85 Test 01/15/17 21:12 01/16/17 02:29 01/16/17 04:50 01/16/17 07:00 Bedside Glucose 89 80 96 White Blood Count 4.6 L Red Blood Count 4.12 L Hemoglobin 11.7 L Hematocrit 37.2 Mean Corpuscular Volume 90.3 Mean Corpuscular Hemoglobin 28.4 L Mean Corpuscular Hemoglobin Concent 31.5 L Red Cell Distribution Width 19.7 H Platelet Count 179 Mean Platelet Volume 10.0 Neutrophils % 65.7 Lymphocytes % 17.6 Monocytes % 8.7 Eosinophils % 7.4 H Basophils % 0.4 Nucleated Red Blood Cells % 0.0 Neutrophils # 3.0 Lymphocytes # 0.8 Monocytes # 0.4 Eosinophils # 0.3 Basophils # 0.0 Nucleated Red Blood Cells # 0.0 Sodium Level 142 Potassium Level 3.5 Chloride Level 99 Carbon Dioxide Level 37 H Anion Gap 10 Blood Urea Nitrogen 6 L Creatinine 0.72 Glucose Level 98 Calcium Level 8.5 Phosphorus Level 3.0 Magnesium Level 1.5 L Blood Gas Specimen Source Blood arterial Arterial Blood Date Drawn 01/16/2017 7:30:47 AM Arterial Blood pH (Temp corrected) 7.412 Arterial Blood pCO2 (Temp correct) 53.6 H Arterial Blood pO2 (Temp corrected) 96.0 Arterial Blood HCO3 33.4 H Arterial Blood Base Excess 7.2 H Arterial Blood Oxygen Saturation 97.2 Nik Test ACCEPTAB Arterial Blood Gas Puncture Site Left Radial Arterial Blood Carboxyhemoglobin 0.9 Arterial Blood Methemoglobin 0.3 Blood Gas A-a O2 Differential 54.9 H Oxyhemoglobin Percent 96.0 Total Hemoglobin 13.3 Blood Gas Temperature 37.0 Blood Gas Respiration Rate 20.0 Blood Gas Actual Respiration Rate 22 Blood Gas Modality MASK - BIPAP FiO2 30.0 Blood Gas IPAP/EPAP Ratio 18/8 Blood Gas Notified Whom JLD Blood Gas Notified Time 01/16/2017 8:09:22 AM Test 01/16/17 10:16 Bedside Glucose 81 Medications Medications Current Medications Acetaminophen (Tylenol Tab) 650 mg Q6H PRN PO PAIN LEVEL 1-3 OR FEVER Last administered on 01/11/17 00:23; Admin Dose 650 MG; Start 01/11/17 at 00:00 Docusate Sodium (Colace) 100 mg Q12H PRN PO CONSTIPATION; Start 01/11/17 at 00 :00 Bisacodyl (Dulcolax) 5 mg DAILY PRN PO CONSTIPATION; Start 01/11/17 at 00:00 Famotidine (Pepcid) 20 mg Q12 PO Last administered on 01/16/17 09:58; Admin Dose 20 MG; Start 01/11/17 at 00:00 Enoxaparin Sodium (Lovenox) 100 mg Q12 SC Last administered on 01/16/17 10:01 ; Admin Dose 100 MG; Start 01/11/17 at 00:00 Lorazepam (Ativan) 1 mg Q4H PRN IV AGITATION/ANXIETY Last administered on 01/16 02:34; Admin Dose 1 MG; Start 01/11/17 at 01:30 Aspirin (Halfprin) 81 mg DAILY PO Last administered on 01/16/17 09:59; Admin Dose 81 MG; Start 01/11/17 at 09:00 Miscellaneous Information 1 ea NOTE XX ; Start 01/11/17 at 02:00 Glucose (Glutose) 15 gm Q15M PRN PO DECREASED GLUCOSE; Start 01/11/17 at 02:00 Glucose (Glutose) 22.5 gm Q15M PRN PO DECREASED GLUCOSE; Start 01/11/17 at 02: 00 Dextrose (D50w Syringe) 25 ml Q15M PRN IV DECREASED GLUCOSE Last administered on 01/15/17 05:38; Admin Dose 25 ML; Start 01/11/17 at 02:00 Dextrose (D50w Syringe) 50 ml Q15M PRN IV DECREASED GLUCOSE; Start 01/11/17 at 02:00 Glucagon (Glucagen) 1 mg Q15M PRN IM DECREASED GLUCOSE; Start 01/11/17 at 02: 00 Glucose 15 gm 15 gm Q15M PRN BUCCAL DECREASED GLUCOSE; Start 01/11/17 at 02:00 Norepinephrine 16 mg/Dextrose 500 ml @ 0 mls/hr TITRATE IV Last administered on 01/14/17 02:42; Admin Dose 9.37 MLS/HR; Start 01/11/17 at 15:00 Fentanyl 100 ml @ 2.5 mls/hr TITRATE IV Last administered on 01/14/17 08:37 ; Admin Dose 7.5 MLS/HR; Start 01/11/17 at 23:30; Status Future hold Midazolam HCl (Versed) 50 ml @ 1 mls/hr TITRATE IV Last administered on 08:14; Admin Dose 9 MLS/HR; Start 01/12/17 at 01:30; Status Future hold Insulin Aspart (Adult SC Insulin - Mild Algorithm)... Q4 SC Last administered on 01/12/17 17:28; Admin Dose 1 UNIT; Start 01/12/17 at 09:00 Dobutamine HCl/ Dextrose 250 ml @ 7.748 mls/ hr TITRATE IV Last administered on 01/14/17 07:23; Admin Dose 12.396 MLS/HR; Start 01/12/17 at 12:30 Amiodarone HCl (Cordarone) 200 mg TID PO Last administered on 01/16/17 09:59 ; Admin Dose 200 MG; Start 01/12/17 at 21:00 Benazepril HCl (Lotensin) 5 mg DAILY PO Last administered on 01/15/17 08:42; Admin Dose 5 MG; Start 01/15/17 at 09:00 Carvedilol (Coreg) 6.25 mg BID NGT Last administered on 01/16/17t 09:58; Admin Dose 6.25 MG; Start 01/15/17 at 09:00 IV Flush 10 ml 10 ml PRN PRN IV IV PROTOCOL; Start 01/15/17 at 21:30 Vancomycin HCl/ Sodium Chloride (Vancocin/NS) 250 ml @ 83.333 mls/ hr Q12H IVPB ; Start 01/16/17 at 13:00 Miscellaneous Information (*Rx Drug Level Order Reminder*) VANCOMYCIN TROUGH AT 1200 ONCE ONCE XX ; Start 01/17/17 at 12:00; Stop 01/17/17 at 12:01 DAJA CROSS Jan 16, 2017 10:40
--- NOTE | 2017-01-16 11:09 | PN ---
Date/Time of Note Date/Time of Note DATE: 01/16/17 TIME: 11:06 Assessment/Plan VTE Prophylaxis VTE Prophylaxis Intervention: LMWH Assessment/Plan Chief Complaint/Hosp Course 1. Acute respiratory failure secondary to acute on chronic systolic CHF exacerbation-extubated Continue BiPAP, wean off as tolerated Continue diuresis 2. Paroxysmal A-fib with RVR in the setting of methamphetamine use-stable Patient is status post diltiazem with consequential hypotension which is now resolved Continue amiodarone and Lovenox 3. Cardiogenic shock-stable 4. Chronic Moderate-severe MR 5. DIANNA-resolved 6. Acute encephalopathy possibly secondary to methamphetamine withdrawal CT head shows no acute findings Neurology consultation obtained 7. Bacteremia secondary to staph Continue vancomycin Obtain ID consultation Prophylaxis: Lovenox Problems: Subjective 24 Hr Interval Summary Constitutional: disoriented Exam/Review of Systems Vital Signs Vitals Vital Signs Date Time Temp Pulse Resp B/P Pulse Ox O2 Delivery O2 Flow Rate FiO2 01/16/17 10:30 110 31 105/87 88 BIPAP 01/16/17 08:00 98.0 01/16/17 05:10 30 01/15/17 09:00 6.0 Intake and Output 01/15/17 01/15/17 01/16/17 14:59 22:59 06:59 Intake Total 120 ml 190 ml 500 ml Output Total 1400 ml 1935 ml 880 ml Balance -1280 ml -1745 ml -380 ml Exam Psych: confusion Respiratory: clear to auscultation Cardiovascular: regular rate and rhythm Gastrointestinal: soft, No distended Musculoskeletal: nl extremities to inspection Results Result Diagram: 01/16/17 0450 01/16/17 0450 Results 24 hrs Laboratory Tests Test 01/15/17 11:50 01/15/17 12:10 01/15/17 12:41 01/15/17 16:27 Blood Gas Specimen Source Blood arterial Arterial Blood Date Drawn 01/15/2017 12:30:26 PM Arterial Blood pH (Temp corrected) 7.409 Arterial Blood pCO2 (Temp correct) 52.3 H Arterial Blood pO2 (Temp corrected) 79.8 L Arterial Blood HCO3 32.3 H Arterial Blood Base Excess 6.4 H Arterial Blood Oxygen Saturation 95.8 Nik Test ACCEPTAB Arterial Blood Gas Puncture Site Left Radial Arterial Blood Carboxyhemoglobin 0.3 Arterial Blood Methemoglobin 0.2 Blood Gas A-a O2 Differential 72.7 H Oxyhemoglobin Percent 95.3 Total Hemoglobin 12.9 Blood Gas Temperature 37.0 Blood Gas Respiration Rate 20.0 Blood Gas Actual Respiration Rate 20 Blood Gas Modality MASK - BIPAP FiO2 30.0 Blood Gas IPAP/EPAP Ratio 18/8 Blood Gas Notified Whom JLD Blood Gas Notified Time 01/15/2017 1:01:11 PM Lab Scanned Report REFERENCE LAB Bedside Glucose 90 85 Test 01/15/17 21:12 01/16/17 02:29 01/16/17 04:50 01/16/17 07:00 Bedside Glucose 89 80 96 White Blood Count 4.6 L Red Blood Count 4.12 L Hemoglobin 11.7 L Hematocrit 37.2 Mean Corpuscular Volume 90.3 Mean Corpuscular Hemoglobin 28.4 L Mean Corpuscular Hemoglobin Concent 31.5 L Red Cell Distribution Width 19.7 H Platelet Count 179 Mean Platelet Volume 10.0 Neutrophils % 65.7 Lymphocytes % 17.6 Monocytes % 8.7 Eosinophils % 7.4 H Basophils % 0.4 Nucleated Red Blood Cells % 0.0 Neutrophils # 3.0 Lymphocytes # 0.8 Monocytes # 0.4 Eosinophils # 0.3 Basophils # 0.0 Nucleated Red Blood Cells # 0.0 Sodium Level 142 Potassium Level 3.5 Chloride Level 99 Carbon Dioxide Level 37 H Anion Gap 10 Blood Urea Nitrogen 6 L Creatinine 0.72 Glucose Level 98 Calcium Level 8.5 Phosphorus Level 3.0 Magnesium Level 1.5 L Blood Gas Specimen Source Blood arterial Arterial Blood Date Drawn 01/16/2017 7:30:47 AM Arterial Blood pH (Temp corrected) 7.412 Arterial Blood pCO2 (Temp correct) 53.6 H Arterial Blood pO2 (Temp corrected) 96.0 Arterial Blood HCO3 33.4 H Arterial Blood Base Excess 7.2 H Arterial Blood Oxygen Saturation 97.2 Nik Test ACCEPTAB Arterial Blood Gas Puncture Site Left Radial Arterial Blood Carboxyhemoglobin 0.9 Arterial Blood Methemoglobin 0.3 Blood Gas A-a O2 Differential 54.9 H Oxyhemoglobin Percent 96.0 Total Hemoglobin 13.3 Blood Gas Temperature 37.0 Blood Gas Respiration Rate 20.0 Blood Gas Actual Respiration Rate 22 Blood Gas Modality MASK - BIPAP FiO2 30.0 Blood Gas IPAP/EPAP Ratio 18/8 Blood Gas Notified Whom JLD Blood Gas Notified Time 01/16/2017 8:09:22 AM Test 01/16/17 10:16 Bedside Glucose 81 Medications Medications Current Medications Acetaminophen (Tylenol Tab) 650 mg Q6H PRN PO PAIN LEVEL 1-3 OR FEVER Last administered on 01/11/17 00:23; Admin Dose 650 MG; Start 01/11/17 at 00:00 Docusate Sodium (Colace) 100 mg Q12H PRN PO CONSTIPATION; Start 01/11/17 at 00 :00 Bisacodyl (Dulcolax) 5 mg DAILY PRN PO CONSTIPATION; Start 01/11/17 at 00:00 Famotidine (Pepcid) 20 mg Q12 PO Last administered on 01/16/17 09:58; Admin Dose 20 MG; Start 01/11/17 at 00:00 Enoxaparin Sodium (Lovenox) 100 mg Q12 SC Last administered on 01/16/17 10:01 ; Admin Dose 100 MG; Start 01/11/17 at 00:00 Lorazepam (Ativan) 1 mg Q4H PRN IV AGITATION/ANXIETY Last administered on 01/16 02:34; Admin Dose 1 MG; Start 01/11/17 at 01:30 Aspirin (Halfprin) 81 mg DAILY PO Last administered on 01/16/17 09:59; Admin Dose 81 MG; Start 01/11/17 at 09:00 Miscellaneous Information 1 ea NOTE XX ; Start 01/11/17 at 02:00 Glucose (Glutose) 15 gm Q15M PRN PO DECREASED GLUCOSE; Start 01/11/17 at 02:00 Glucose (Glutose) 22.5 gm Q15M PRN PO DECREASED GLUCOSE; Start 01/11/17 at 02: 00 Dextrose (D50w Syringe) 25 ml Q15M PRN IV DECREASED GLUCOSE Last administered on 01/15/17 05:38; Admin Dose 25 ML; Start 01/11/17 at 02:00 Dextrose (D50w Syringe) 50 ml Q15M PRN IV DECREASED GLUCOSE; Start 01/11/17 at 02:00 Glucagon (Glucagen) 1 mg Q15M PRN IM DECREASED GLUCOSE; Start 01/11/17 at 02: 00 Glucose 15 gm 15 gm Q15M PRN BUCCAL DECREASED GLUCOSE; Start 01/11/17 at 02:00 Norepinephrine 16 mg/Dextrose 500 ml @ 0 mls/hr TITRATE IV Last administered on 01/14/17 02:42; Admin Dose 9.37 MLS/HR; Start 01/11/17 at 15:00 Fentanyl 100 ml @ 2.5 mls/hr TITRATE IV Last administered on 01/14/17 08:37 ; Admin Dose 7.5 MLS/HR; Start 01/11/17 at 23:30; Status Future hold Midazolam HCl (Versed) 50 ml @ 1 mls/hr TITRATE IV Last administered on 08:14; Admin Dose 9 MLS/HR; Start 01/12/17 at 01:30; Status Future hold Insulin Aspart (Adult SC Insulin - Mild Algorithm)... Q4 SC Last administered on 01/12/17 17:28; Admin Dose 1 UNIT; Start 01/12/17 at 09:00 Dobutamine HCl/ Dextrose 250 ml @ 7.748 mls/ hr TITRATE IV Last administered on 01/14/17 07:23; Admin Dose 12.396 MLS/HR; Start 01/12/17 at 12:30 Amiodarone HCl (Cordarone) 200 mg TID PO Last administered on 01/16/17 09:59 ; Admin Dose 200 MG; Start 01/12/17 at 21:00 Carvedilol (Coreg) 6.25 mg BID NGT Last administered on 01/16/17 09:58; Admin Dose 6.25 MG; Start 01/15/17 at 09:00 IV Flush 10 ml 10 ml PRN PRN IV IV PROTOCOL; Start 01/15/17 at 21:30 Vancomycin HCl/ Sodium Chloride (Vancocin/NS) 250 ml @ 83.333 mls/ hr Q12H IVPB ; Start 01/16/17 at 13:00 Miscellaneous Information (*Rx Drug Level Order Reminder*) VANCOMYCIN TROUGH AT 1200 ONCE ONCE XX ; Start 01/17/17 at 12:00; Stop 01/17/17 at 12:01 Lisinopril (Zestril) 2.5 mg DAILY PO ; Start 01/17/17 at 09:00; Status MAURILIO CARVER Jan 16, 2017 11:09
[2017-01-16] MEDS ORDERED: MAGNESIUM SULFATE 4 GM/100 ML 100 ML IVPB ONE (12:30)
--- NOTE | 2017-01-16 12:53 | CONS ---
Date/Time of Note Date/Time of Note DATE: 01/16/17 TIME: 12:45 Assessment/Plan Assessment/Plan Chief Complaint/Hosp Course 56 yo female with hx of methamphetamine abuse EF 20%, afib with RVR admitted with respiratory failure from acute on chronic CHF exacerbation being tx for sepsis with persistent encephalopathy. likely metabolic would rule out possible new ischemic events Recommend MRI Brain w/o contrast continue aspirin, statin, optimize diabetes will follow Problems: Consultation Date/Type/Reason Admit Date/Time Jan 10, 2017 at 22:38 Date of Consultation: Jan 16, 2017 Type of Consultation: Neurology Reason for Consultation encephalopathy Referring Provider: MAURILIO AMEZQUITA Hx of Present Illness 56 yo female with hx of methamphetamine abuse, afib, cardiomyopathy with systolic dysfunction EF: 20% presenting with SOB and diarrhea, vomiting. She is currently being managed for acute respiratory failure from acute on chronic CHF being diuresed, afib with RVR, DIANNA which has resolved, bacteremia secondary to staph on vancomycin. She has persistent encephalopathy. CTH shows prior left craniotomy changes, encephalomalacia left frontal operculum and left frontal lobe no acute hemorrhage or infarct. Constitutional: disoriented Psychological: confusion Social History Smoking Status: Former smoker Drug Use: marijuana, other (methampetamine) Exam/Review of Systems Vital Signs Vitals Vital Signs Date Time Temp Pulse Resp B/P Pulse Ox O2 Delivery O2 Flow Rate FiO2 01/16/17 10:30 110 31 105/87 88 BIPAP 01/16/17 08:00 98.0 01/16/17 05:10 30 01/15/17 09:00 6.0 Intake and Output 01/15/17 01/15/17 01/16/17 15:00 23:00 07:00 Intake Total 120 ml 190 ml 500 ml Output Total 1530 ml 1920 ml 765 ml Balance -1410 ml -1730 ml -265 ml Exam encephalopathic disoriented unable to follow commands CN: RACIEL, blinks to threat b/l no facial asymmetry Motor: right arm slight drift compared to left uncooperative w motor testing Reflexes brisk on right 3+ with spread on UE and LE toes are bilaterally upgoing Results Result Diagram: 01/16/17 0450 01/16/17 0450 Results 24 hrs Laboratory Tests Test 01/15/17 16:27 01/15/17 21:12 01/16/17 02:29 01/16/17 04:50 Bedside Glucose 85 89 80 96 White Blood Count 4.6 L Red Blood Count 4.12 L Hemoglobin 11.7 L Hematocrit 37.2 Mean Corpuscular Volume 90.3 Mean Corpuscular Hemoglobin 28.4 L Mean Corpuscular Hemoglobin Concent 31.5 L Red Cell Distribution Width 19.7 H Platelet Count 179 Mean Platelet Volume 10.0 Neutrophils % 65.7 Lymphocytes % 17.6 Monocytes % 8.7 Eosinophils % 7.4 H Basophils % 0.4 Nucleated Red Blood Cells % 0.0 Neutrophils # 3.0 Lymphocytes # 0.8 Monocytes # 0.4 Eosinophils # 0.3 Basophils # 0.0 Nucleated Red Blood Cells # 0.0 Sodium Level 142 Potassium Level 3.5 Chloride Level 99 Carbon Dioxide Level 37 H Anion Gap 10 Blood Urea Nitrogen 6 L Creatinine 0.72 Glucose Level 98 Calcium Level 8.5 Phosphorus Level 3.0 Magnesium Level 1.5 L Test 01/16/17 07:00 01/16/17 10:16 01/16/17 12:01 Blood Gas Specimen Source Blood arterial Arterial Blood Date Drawn 01/16/2017 7:30:47 AM Arterial Blood pH (Temp corrected) 7.412 Arterial Blood pCO2 (Temp correct) 53.6 H Arterial Blood pO2 (Temp corrected) 96.0 Arterial Blood HCO3 33.4 H Arterial Blood Base Excess 7.2 H Arterial Blood Oxygen Saturation 97.2 Nik Test ACCEPTAB Arterial Blood Gas Puncture Site Left Radial Arterial Blood Carboxyhemoglobin 0.9 Arterial Blood Methemoglobin 0.3 Blood Gas A-a O2 Differential 54.9 H Oxyhemoglobin Percent 96.0 Total Hemoglobin 13.3 Blood Gas Temperature 37.0 Blood Gas Respiration Rate 20.0 Blood Gas Actual Respiration Rate 22 Blood Gas Modality MASK - BIPAP FiO2 30.0 Blood Gas IPAP/EPAP Ratio 18/8 Blood Gas Notified Whom JLD Blood Gas Notified Time 01/16/2017 8:09:22 AM Bedside Glucose 81 86 Medications Medications Current Medications Acetaminophen (Tylenol Tab) 650 mg Q6H PRN PO PAIN LEVEL 1-3 OR FEVER Last administered on 01/11/17t 00:23; Admin Dose 650 MG; Start 01/11/17 at 00:00 Docusate Sodium (Colace) 100 mg Q12H PRN PO CONSTIPATION; Start 01/11/17 at 00 :00 Bisacodyl (Dulcolax) 5 mg DAILY PRN PO CONSTIPATION; Start 01/11/17 at 00:00 Famotidine (Pepcid) 20 mg Q12 PO Last administered on 01/16/17 09:58; Admin Dose 20 MG; Start 01/11/17 at 00:00 Enoxaparin Sodium (Lovenox) 100 mg Q12 SC Last administered on 01/16/17 10:01 ; Admin Dose 100 MG; Start 01/11/17 at 00:00 Lorazepam (Ativan) 1 mg Q4H PRN IV AGITATION/ANXIETY Last administered on 01/16 02:34; Admin Dose 1 MG; Start 01/11/17 at 01:30 Aspirin (Halfprin) 81 mg DAILY PO Last administered on 01/16/17 09:59; Admin Dose 81 MG; Start 01/11/17 at 09:00 Miscellaneous Information 1 ea NOTE XX ; Start 01/11/17 at 02:00 Glucose (Glutose) 15 gm Q15M PRN PO DECREASED GLUCOSE; Start 01/11/17 at 02:00 Glucose (Glutose) 22.5 gm Q15M PRN PO DECREASED GLUCOSE; Start 01/11/17 at 02: 00 Dextrose (D50w Syringe) 25 ml Q15M PRN IV DECREASED GLUCOSE Last administered on 01/15/17 05:38; Admin Dose 25 ML; Start 01/11/17 at 02:00 Dextrose (D50w Syringe) 50 ml Q15M PRN IV DECREASED GLUCOSE; Start 01/11/17 at 02:00 Glucagon (Glucagen) 1 mg Q15M PRN IM DECREASED GLUCOSE; Start 01/11/17 at 02: 00 Glucose 15 gm 15 gm Q15M PRN BUCCAL DECREASED GLUCOSE; Start 01/11/17 at 02:00 Norepinephrine 16 mg/Dextrose 500 ml @ 0 mls/hr TITRATE IV Last administered on 01/14/17 02:42; Admin Dose 9.37 MLS/HR; Start 01/11/17 at 15:00 Fentanyl 100 ml @ 2.5 mls/hr TITRATE IV Last administered on 01/14/17 08:37 ; Admin Dose 7.5 MLS/HR; Start 01/11/17 at 23:30; Status Future hold Midazolam HCl (Versed) 50 ml @ 1 mls/hr TITRATE IV Last administered on 08:14; Admin Dose 9 MLS/HR; Start 01/12/17 at 01:30; Status Future hold Insulin Aspart (Adult SC Insulin - Mild Algorithm)... Q4 SC Last administered on 01/12/17 17:28; Admin Dose 1 UNIT; Start 01/12/17 at 09:00 Dobutamine HCl/ Dextrose 250 ml @ 7.748 mls/ hr TITRATE IV Last administered on 01/14/17 07:23; Admin Dose 12.396 MLS/HR; Start 01/12/17 at 12:30 Amiodarone HCl (Cordarone) 200 mg TID PO Last administered on 01/16/17 09:59 ; Admin Dose 200 MG; Start 01/12/17 at 21:00 Carvedilol (Coreg) 6.25 mg BID NGT Last administered on 01/16/17 09:58; Admin Dose 6.25 MG; Start 01/15/17 at 09:00 IV Flush 10 ml 10 ml PRN PRN IV IV PROTOCOL; Start 01/15/17 at 21:30 Vancomycin HCl/ Sodium Chloride (Vancocin/NS) 250 ml @ 83.333 mls/ hr Q12H IVPB ; Start 01/16/17 at 13:00 Miscellaneous Information (*Rx Drug Level Order Reminder*) VANCOMYCIN TROUGH AT 1200 ONCE ONCE XX ; Start 01/17/17 at 12:00; Stop 01/17/17 at 12:01 Lisinopril 2.5 mg 2.5 mg DAILY PO ; Start 01/17/17 at 09:00 Magnesium Sulfate (Magnesium Sulfate 4 Gm/100 ml) 100 ml @ 25 mls/hr ONCE ONCE IVPB ; Start 01/16/17 at 12:30; Stop 01/16/17 at 16:29 PAPI LOMBARDO MD Jan 16, 2017 12:53
[2017-01-16] MEDS: VANCOMYCIN 1.25 GM in SOD CHLORIDE 0.9% 250 ML IVPB SCH (13:12)
--- NOTE | 2017-01-16 16:26 | RADRPT ---
PROCEDURE: XR Chest. CLINICAL INDICATION: Check PICC line position. TECHNIQUE: Single frontal view. COMPARISON: 01/15/2017. 0631 hours. FINDINGS: There is a right arm PICC line with the tip in the right internal jugular vein. The nasogastric tub e tip is in the stomach. There is mild pulmonary edema. There is mild left basilar atelectasis. The heart is enlarged there is calcification in the aorta consistent with atherosclerosis. There is no right pleural effusion. There is a small left pleural effusion. There is no pneumothorax. IMPRESSION: 1. Right arm PICC line tip in right internal jugular vein. This should be repositioned. PICC line n dwight is aware. 2. NG tube tip in the stomach. 3. Mild pulmonary edema. 4. Mild left basilar atelectasis. 5. Cardiomegaly and atherosclerosis. 6. Small left pleural effusion. RPTAT: QQ .Thomas Murphy MD, MD Date Time Electronically viewed and signed by .Thomas Murphy MD, on 01/16/2017 16:26 .R/
--- NOTE | 2017-01-16 16:27 | RADRPT ---
PROCEDURE: XR Chest. CLINICAL INDICATION: Check PICC line position. TECHNIQUE: Single frontal view. COMPARISON: 01/15/2017. 2021 hours. FINDINGS: There is a right arm PICC line with the tip in the cavoatrial junction. The nasogastric tube tip is in the stomach. The heart is enlarged. There is calcification in the aorta consistent with atherosclerosis. Pulmonary edema, mild left basilar atelectasis and small left pleural effusion are unchanged. There is no pneumothorax. IMPRESSION: 1. Right arm PICC line tip in satisfactory position. 2. Otherwise no change from the prior study done earlier the same day. RPTAT: QQ .Thomas Murphy MD, MD Date Time Electronically viewed and signed by .hTomas Murphy MD, MD on 01/16/2017 16:27 .R/
[2017-01-16] MEDS ORDERED: SOD CHLORIDE 0.9% 500 ML IV ONE (16:30)
--- NOTE | 2017-01-16 16:34 | RADRPT ---
PROCEDURE: XR Chest. CLINICAL INDICATION: Shortness of breath. TECHNIQUE: Single frontal view. COMPARISON: 01/15/2017. FINDINGS: The right arm PICC line and nasogastric tube remain in satisfactory position. Pulmonary edema, mild left basilar atelectasis and small left pleural effusion are unchanged. The lungs are otherwise david r. There is no right pleural effusion. The heart is enlarged. There is no pneumothorax. IMPRESSION: 1. No change from 01/15/2017. RPTAT: QQ .Thomas Murphy MD, MD Date Time Electronically viewed and signed by .Thomas Murphy MD, MD on 01/16/2017 16:34 .R/
[2017-01-16] MEDS: FUROSEMIDE 40 MG INJ IV SCH (17:47)
[2017-01-16] MEDS ORDERED: SOD CHLORIDE 0.9% 100 ML ONE (19:19)
--- NOTE | 2017-01-16 21:13 | RADRPT ---
PROCEDURE: MRI Brain without contrast. CLINICAL INDICATION: History of prior left frontal CVA and encephalopathy. Atrial fibrillation. TECHNIQUE: An MRI of the brain was performed utilizing the following sequences: Sagittal and axial T1 weighted, axial T2 weighted, axial diffusion weighted with ADC mapping, coronal GRE, and axial F LAIR. COMPARISON: Brain CT 01/15/2017. FINDINGS: Postsurgical changes of prior left frontal craniotomy are noted. Encephalomalacia in the left fronta l operculum and left lateral frontal lobe is again noted. There are associated area of gradient susc eptibility artifact indicative of hemosiderin. Small focal diffusion hyperintensity is noted which also demonstrates hyperintensity on ADC map and likely represent an old infarct. Otherwise no diffusion weighted abnormalities are seen to suggest t he presence of acute ischemia or recent infarct. There is no evidence of intracranial hemorrhage, m ass effect, or midline shift. No extra-axial fluid collections are seen. The ventricles and sulci ar e mildly enlarged indicative of volume loss. There are mild to moderate foci of T2 FLAIR hyperintensity in the periventricular, deep, and subcort ical white matter, which are nonspecific in etiology but likely reflect chronic small vessel ischemi c changes. Small lacunar infarcts are noted in bilateral lentiform nuclei and left precentral gyru s. No abnormal intracranial vascular flow void is noted. The visualized paranasal sinuses are grossly clear. IMPRESSION: 1. No acute intracranial hemorrhage, infarction or mass. 2. Encephalomalacia in the left frontal operculum and left lateral frontal lobe with associated hem osiderin. Prior left frontal craniotomy. Mild to moderate chronic small vessel ischemic changes. 3. Small lacunar infarcts in bilateral lentiform nuclei and left precentral gyrus. 4. Mild generalized cerebral volume loss. RPTAT: HFN .Maggi Lopez MD, MD Date Time Electronically viewed and signed by .Maggi Lopez MD, MD on 01/16/2017 21:13 .N/
[2017-01-17] VITALS (24 sets, daily range): BP systolic 83–119; BP diastolic 50–101; PULSE 96–128; RESP 15–26
[2017-01-17] MEDS: VANCOMYCIN 1.25 GM in SOD CHLORIDE 0.9% 250 ML IVPB SCH ×2 (00:52→13:54)
[2017-01-17] MEDS: Insulin NOVOLOG SS MILD Algorithm (NPO/TPN/ENTERAL FEEDS) SC SCH ×6 (00:55→21:00)
[2017-01-17] MEDS: ALBUTEROL/IPRATROPIUM (NEB) 3 ML AMP HHN SCH ×4 (01:48→20:18)
[2017-01-17] MEDS: AMIODARONE 200 MG TAB PO SCH ×4 (03:11→21:47)
[2017-01-17 05:17] LABS: BASOPHILS % 0.4 % (0.0-2.0); EOSINOPHILS # 0.3 10^3/ul (0.0-0.5); EOSINOPHILS % 6.6 % (0.0-7.0); HEMOGLOBIN 11.4 g/dl (12.0-16.0); LYMPHOCYTES # 0.7 10^3/ul (0.8-2.9); LYMPHOCYTES % 15.3 % (15.0-51.0); MEAN CORPUSCULAR HEMOGLOBIN 27.9 pg (29.0-33.0); MEAN CORPUSCULAR HGB CONC 30.8 g/dl (32.0-37.0); MEAN CORPUSCULAR VOLUME 90.5 fl (82.0-101.0); MONOCYTE # 0.4 10^3/ul (0.3-0.9); MONOCYTES % 8.1 % (0.0-11.0); NEUTROPHIL # 3.3 10^3/ul (1.6-7.5); NEUTROPHILS % 69.2 % (39.0-77.0); PLATELET COUNT 154 10^3/UL (140-415); RED BLOOD COUNT 4.09 10^6/ul (4.20-5.40); RED CELL DISTRIBUTION WIDTH 19.5 % (11.5-14.5); WHITE BLOOD COUNT 4.8 10^3/ul (4.8-10.8)
[2017-01-17] MEDS: FUROSEMIDE 40 MG INJ IV SCH (05:42)
[2017-01-17 05:57] LABS: CALCIUM 8.1 mg/dl (8.4-10.2); CREATININE 0.67 mg/dl (0.44-1.00); MAGNESIUM 1.8 mg/dl (1.7-2.5); POTASSIUM 3.5 mmol/L (3.5-5.1)
[2017-01-17] MEDS: ASPIRIN (EC) 81 MG TAB PO SCH (08:14)
[2017-01-17] MEDS: FAMOTIDINE 20 MG TAB PO SCH ×3 (08:14→21:47)
[2017-01-17] MEDS: LISINOPRIL 5 MG TAB PO SCH (08:15)
[2017-01-17] MEDS: ENOXAPARIN 100 MG/ML SYG SC SCH ×2 (08:16→21:41)
--- NOTE | 2017-01-17 08:39 | CONS ---
DATE OF ADMISSION: 01/10/2017 DATE OF CONSULTATION: 01/16/2017 INFECTIOUS DISEASE CONSULTATION REASON FOR CONSULTATION: Antibiotic management. HISTORY OF PRESENT ILLNESS: Cassy Giles is a 56-year-old female, who was admitted with atrial f ibrillation with rapid ventricular response and is being seen for positive blood cultures. The rahul ent was admitted on 01/10/2017. Her problems include history of atrial fibrillation. She presented with shortness of breath, diarrhea and nausea and vomiting x1 day. She began developing shortness of breath, diarrhea and vomiting. She used marijuana and methamphetamine 3 days prior to admission. She denies eating any uncooked foods or any food prepared outside her home. She denies fever, den ies any palpitations. In the emergency room, she received the Cardizem, followed by Cardizem drip a nd her heart rate improved, as did her blood pressure. Her problems include atrial fibrillation, hi story of CVA without residual at this point, cardiomyopathy with systolic dysfunction, COPD, diabete s and history of brain tumor with removal of the brain tumor in 2015. On admission, her chest x-ray showed cardiomegaly with mild interstitial vascular congestion. She was seen in consultation by Dr Martha Vasquez for pulmonology. Currently, the patient has acute respiratory failure secondary to acute- on-chronic systolic CHF. The patient was extubated, but she had been intubated previously, extubate d and placed on BiPAP. Patient is stable post diltiazem with consequential hypotension, which is no w resolved, cardiogenic shock stable, acute encephalopathy. The patient has bacteremia secondary to Staph species. The patient is on vancomycin and the question is whether this is a contaminant or n ot. The patient had a blood culture positive for Corynebacterium. One blood culture was negative o n 01/12/2017, one positive. Urine cultures negative. Endotracheal tube from 01/12/2017 showed norm al respiratory silvano, and blood cultures just show Staph species at this point. A chest x-ray from 01/15/2017 shows cardiomegaly and mild vascular congestion. There are 2 small pleural effusions and left basilar consolidation or atelectasis. A PICC line was inserted on 01/15/2017 in the right upp er extremity. Patient felt to be encephalopathic. PAST MEDICAL HISTORY: Operations as outlined. FAMILY HISTORY: Noncontributory. SOCIAL HISTORY: She is a former smoker. She uses marijuana and methamphetamines. MEDICATIONS: Per chart. REVIEW OF SYSTEMS: Noncontributory. PHYSICAL EXAMINATION: GENERAL: The patient is a 56-year-old female who is on BiPAP. SKIN: Without generalized rash. HEENT: Within normal limits. NECK: Supple. LYMPH NODES: None palpable. CHEST: Decreased breath sounds at the bases. HEART: Without murmur or gallop. ABDOMEN: Soft, nontender, without organosplenomegaly or masses. EXTREMITIES: Without cyanosis, clubbing or edema. RECTAL AND GENITAL: Deferred. NEUROLOGIC: No focal neurological abnormality, but she has brisk reflexes on the right with toes up going. IMPRESSION AND PLAN: The patient has cardiomyopathy with an ejection fraction of 20%. She is encep halopathic and may be septic. She may have metabolic encephalopathy. Her medications include vanco mycin. She is on norepinephrine to titrate her blood pressure and I believe that we should get repe at blood cultures to see where we stand since she has a new PICC line in. I will dictate my findings to the hospitalist and to Dr. Vasquez, Dr. Hi and Dr. Lombardo. Dictated By: JERRY SR MD, JD/NAGA Conf#: [id number] DID#: [id number] CC: DAJA VASQUEZ MD; PAPI LOMBARDO MD; KB CAMPO MD; KELLY HI MD;*EndCC*
--- NOTE | 2017-01-17 10:41 | CONS ---
Date/Time of Note Date/Time of Note DATE: 01/17/17 TIME: 10:39 Consult Date/Type/Reason Admit Date/Time Jan 10, 2017 at 22:38 Type of Consultation: Pulmonary Ordering Provider: MAURILIO AMEZQUITA Subjective Patient awake alert oriented this morning. Comfortable at rest no acute distress. Objective Vital Signs Date Time Temp Pulse Resp B/P Pulse Ox O2 Delivery O2 Flow Rate FiO2 01/17/17 08:00 97.9 127 26 119/86 98 Nasal Cannula 2.0 01/17/17 01:56 30 Intake and Output 01/16/17 01/16/17 01/17/17 15:00 23:00 07:00 Intake Total 250 ml 500 ml Output Total 810 ml 290 ml 1425 ml Balance -810 ml -40 ml -925 ml Exam HYSICAL EXAMINATION GENERAL: Well-nourished well-developed lady on nasal cannula oxygen VITAL SIGNS: see below. HEENT: Pupils equal, round, and reactive to light. CARDIAC: S1, S2, CHEST: Diminished air entry bilaterally. ABDOMEN: Mildly distended. Bowel sounds present no guarding or rebound EXTREMITIES: No cyanosis, clubbing edema +1 NEUROLOGIC: Generalized weakness Results/Medications Result Diagram: 01/17/17 0445 01/17/17 0445 Results 24 hrs Laboratory Tests Test 01/16/17 12:01 01/16/17 17:08 01/16/17 21:22 01/17/17 00:54 Bedside Glucose 86 87 88 79 Test 01/17/17 04:45 01/17/17 04:47 01/17/17 09:13 White Blood Count 4.8 Red Blood Count 4.09 L Hemoglobin 11.4 L Hematocrit 37.0 Mean Corpuscular Volume 90.5 Mean Corpuscular Hemoglobin 27.9 L Mean Corpuscular Hemoglobin Concent 30.8 L Red Cell Distribution Width 19.5 H Platelet Count 154 Mean Platelet Volume 9.0 Neutrophils % 69.2 Lymphocytes % 15.3 Monocytes % 8.1 Eosinophils % 6.6 Basophils % 0.4 Nucleated Red Blood Cells % 0.0 Neutrophils # 3.3 Lymphocytes # 0.7 L Monocytes # 0.4 Eosinophils # 0.3 Basophils # 0.0 Nucleated Red Blood Cells # 0.0 Sodium Level 144 Potassium Level 3.5 Chloride Level 102 Carbon Dioxide Level 33 H Anion Gap 13 Blood Urea Nitrogen 5 L Creatinine 0.67 Glucose Level 99 Calcium Level 8.1 L Magnesium Level 1.8 Bedside Glucose 96 93 Medications Current Medications Acetaminophen (Tylenol Tab) 650 mg Q6H PRN PO PAIN LEVEL 1-3 OR FEVER Last administered on 01/11/17 00:23; Admin Dose 650 MG; Start 01/11/17 at 00:00 Docusate Sodium (Colace) 100 mg Q12H PRN PO CONSTIPATION; Start 01/11/17 at 00 :00 Bisacodyl (Dulcolax) 5 mg DAILY PRN PO CONSTIPATION; Start 01/11/17 at 00:00 Famotidine (Pepcid) 20 mg Q12 PO Last administered on 01/17/17 08:14; Admin Dose 20 MG; Start 01/11/17 at 00:00 Enoxaparin Sodium (Lovenox) 100 mg Q12 SC Last administered on 01/17/17 08:16 ; Admin Dose 100 MG; Start 01/11/17 at 00:00 Lorazepam (Ativan) 1 mg Q4H PRN IV AGITATION/ANXIETY Last administered on 01/16 02:34; Admin Dose 1 MG; Start 01/11/17 at 01:30 Aspirin (Halfprin) 81 mg DAILY PO Last administered on 01/17/17 08:14; Admin Dose 81 MG; Start 01/11/17 at 09:00 Miscellaneous Information 1 ea NOTE XX ; Start 01/11/17 at 02:00 Glucose (Glutose) 15 gm Q15M PRN PO DECREASED GLUCOSE; Start 01/11/17 at 02:00 Glucose (Glutose) 22.5 gm Q15M PRN PO DECREASED GLUCOSE; Start 01/11/17 at 02: 00 Dextrose (D50w Syringe) 25 ml Q15M PRN IV DECREASED GLUCOSE Last administered on 01/15/17 05:38; Admin Dose 25 ML; Start 01/11/17 at 02:00 Dextrose (D50w Syringe) 50 ml Q15M PRN IV DECREASED GLUCOSE; Start 01/11/17 at 02:00 Glucagon (Glucagen) 1 mg Q15M PRN IM DECREASED GLUCOSE; Start 01/11/17 at 02: 00 Glucose 15 gm 15 gm Q15M PRN BUCCAL DECREASED GLUCOSE; Start 01/11/17 at 02:00 Norepinephrine 16 mg/Dextrose 500 ml @ 0 mls/hr TITRATE IV Last administered on 01/14/17 02:42; Admin Dose 9.37 MLS/HR; Start 01/11/17 at 15:00 Fentanyl 100 ml @ 2.5 mls/hr TITRATE IV Last administered on 01/14/17 08:37 ; Admin Dose 7.5 MLS/HR; Start 01/11/17 at 23:30; Status Future hold Midazolam HCl (Versed) 50 ml @ 1 mls/hr TITRATE IV Last administered on 08:14; Admin Dose 9 MLS/HR; Start 01/12/17 at 01:30; Status Future hold Insulin Aspart (Adult SC Insulin - Mild Algorithm)... Q4 SC Last administered on 01/12/17 17:28; Admin Dose 1 UNIT; Start 01/12/17 at 09:00 Dobutamine HCl/ Dextrose 250 ml @ 7.748 mls/ hr TITRATE IV Last administered on 01/14/17 07:23; Admin Dose 12.396 MLS/HR; Start 01/12/17 at 12:30 Amiodarone HCl (Cordarone) 200 mg TID PO Last administered on 01/17/17 03:11 ; Admin Dose 200 MG; Start 01/12/17 at 21:00 Carvedilol (Coreg) 6.25 mg BID NGT Last administered on 01/17/17 08:15; Admin Dose 6.25 MG; Start 01/15/17 at 09:00 IV Flush 10 ml 10 ml PRN PRN IV IV PROTOCOL; Start 01/15/17 at 21:30 Vancomycin HCl/ Sodium Chloride (Vancocin/NS) 250 ml @ 83.333 mls/ hr Q12H IVPB Last administered on 01/17/17 00:52; Admin Dose 83.333 MLS/HR; Start at 13:00 Miscellaneous Information (*Rx Drug Level Order Reminder*) VANCOMYCIN TROUGH AT 1200 ONCE ONCE XX ; Start 01/17/17 at 12:00; Stop 01/17/17 at 12:01 Lisinopril (Zestril) 2.5 mg DAILY PO Last administered on 01/17/17 08:15; Admin Dose 2.5 MG; Start 01/17/17 at 09:00 Assessment/Plan Chief Complaint/Hosp Course IMP: 1. Shock, most likely a component of cardiogenic, in view of her underlying cardiomyopathy, however, cannot exclude a co-existing distributive cause. + Cx for G+ rods (unclear significance) significant hemodynamic improvement 2. Respiratory failure secondary to her underlying cardiomyopathy and volume overload. Stable nasal cannula 3. Atrial flutter with variable response. 4. Congestive heart failure. 5. Acute kidney injury, likely cardiorenal. 6. Substance abuse with methamphetamines. 7. Diabetes. 8. Encephalopathy resolving. RECOMMENDATIONS: 1. Submental O2 2. Speech therapy evaluation 3. Aspiration precautions 4. Continue antibiotics per primary team Transfer to telemetry physical therapy evaluation Problems: KELLY DEL CID MD, [facility] Jan 17, 2017 10:41
--- NOTE | 2017-01-17 11:31 | CONS ---
Date/Time of Note Date/Time of Note DATE: 01/17/17 TIME: 11:28 Consult Date/Type/Reason Admit Date/Time Jan 10, 2017 at 22:38 Initial Consult Date 01/16/17 Type of Consultation: Neurology Reason for Consultation encephalopathy Ordering Provider: MAURILIO AMEZQUITA Subjective significantly improved encephalopathy MRI neg for any acute process Objective Vital Signs Date Time Temp Pulse Resp B/P Pulse Ox O2 Delivery O2 Flow Rate FiO2 01/17/17 08:00 97.9 127 26 119/86 98 Nasal Cannula 2.0 01/17/17 01:56 30 Intake and Output 01/16/17 01/16/17 01/17/17 15:00 23:00 07:00 Intake Total 250 ml 500 ml Output Total 810 ml 290 ml 1425 ml Balance -810 ml -40 ml -925 ml Exam awake and alert oriented x3 no neglect follows all commands well no aphasia attention intact counts backwards well CN: II-XII grossly intact Motor: no drift in extremities 5/5 throughout Sensory intact Coord intact Gait not tested Results/Medications Result Diagram: 01/17/175 01/17/17 0445 Results 24 hrs Laboratory Tests Test 01/16/17 12:01 01/16/17 17:08 01/16/17 21:22 01/17/17 00:54 Bedside Glucose 86 87 88 79 Test 01/17/17 04:45 01/17/17 04:47 01/17/17 09:13 White Blood Count 4.8 Red Blood Count 4.09 L Hemoglobin 11.4 L Hematocrit 37.0 Mean Corpuscular Volume 90.5 Mean Corpuscular Hemoglobin 27.9 L Mean Corpuscular Hemoglobin Concent 30.8 L Red Cell Distribution Width 19.5 H Platelet Count 154 Mean Platelet Volume 9.0 Neutrophils % 69.2 Lymphocytes % 15.3 Monocytes % 8.1 Eosinophils % 6.6 Basophils % 0.4 Nucleated Red Blood Cells % 0.0 Neutrophils # 3.3 Lymphocytes # 0.7 L Monocytes # 0.4 Eosinophils # 0.3 Basophils # 0.0 Nucleated Red Blood Cells # 0.0 Sodium Level 144 Potassium Level 3.5 Chloride Level 102 Carbon Dioxide Level 33 H Anion Gap 13 Blood Urea Nitrogen 5 L Creatinine 0.67 Glucose Level 99 Calcium Level 8.1 L Magnesium Level 1.8 Bedside Glucose 96 93 Medications Current Medications Acetaminophen (Tylenol Tab) 650 mg Q6H PRN PO PAIN LEVEL 1-3 OR FEVER Last administered on 01/11/17 00:23; Admin Dose 650 MG; Start 01/11/17 at 00:00 Docusate Sodium (Colace) 100 mg Q12H PRN PO CONSTIPATION; Start 01/11/17 at 00 :00 Bisacodyl (Dulcolax) 5 mg DAILY PRN PO CONSTIPATION; Start 01/11/17 at 00:00 Famotidine (Pepcid) 20 mg Q12 PO Last administered on 01/17/17 08:14; Admin Dose 20 MG; Start 01/11/17 at 00:00 Enoxaparin Sodium (Lovenox) 100 mg Q12 SC Last administered on 01/17/17 08:16 ; Admin Dose 100 MG; Start 01/11/17 at 00:00 Lorazepam (Ativan) 1 mg Q4H PRN IV AGITATION/ANXIETY Last administered on 01/16 02:34; Admin Dose 1 MG; Start 01/11/17 at 01:30 Aspirin (Halfprin) 81 mg DAILY PO Last administered on 01/17/17 08:14; Admin Dose 81 MG; Start 01/11/17 at 09:00 Miscellaneous Information 1 ea NOTE XX ; Start 01/11/17 at 02:00 Glucose (Glutose) 15 gm Q15M PRN PO DECREASED GLUCOSE; Start 01/11/17 at 02:00 Glucose (Glutose) 22.5 gm Q15M PRN PO DECREASED GLUCOSE; Start 01/11/17 at 02: 00 Dextrose (D50w Syringe) 25 ml Q15M PRN IV DECREASED GLUCOSE Last administered on 01/15/17 05:38; Admin Dose 25 ML; Start 01/11/17 at 02:00 Dextrose (D50w Syringe) 50 ml Q15M PRN IV DECREASED GLUCOSE; Start 01/11/17 at 02:00 Glucagon (Glucagen) 1 mg Q15M PRN IM DECREASED GLUCOSE; Start 01/11/17 at 02: 00 Glucose 15 gm 15 gm Q15M PRN BUCCAL DECREASED GLUCOSE; Start 01/11/17 at 02:00 Norepinephrine 16 mg/Dextrose 500 ml @ 0 mls/hr TITRATE IV Last administered on 01/14/17 02:42; Admin Dose 9.37 MLS/HR; Start 01/11/17 at 15:00 Fentanyl 100 ml @ 2.5 mls/hr TITRATE IV Last administered on 01/14/17 08:37 ; Admin Dose 7.5 MLS/HR; Start 01/11/17 at 23:30; Status Future hold Midazolam HCl (Versed) 50 ml @ 1 mls/hr TITRATE IV Last administered on 08:14; Admin Dose 9 MLS/HR; Start 01/12/17 at 01:30; Status Future hold Insulin Aspart (Adult SC Insulin - Mild Algorithm)... Q4 SC Last administered on 01/12/17 17:28; Admin Dose 1 UNIT; Start 01/12/17 at 09:00 Dobutamine HCl/ Dextrose 250 ml @ 7.748 mls/ hr TITRATE IV Last administered on 01/14/17 07:23; Admin Dose 12.396 MLS/HR; Start 01/12/17 at 12:30 Amiodarone HCl (Cordarone) 200 mg TID PO Last administered on 01/17/17 03:11 ; Admin Dose 200 MG; Start 01/12/17 at 21:00 Carvedilol (Coreg) 6.25 mg BID NGT Last administered on 01/17/17 08:15; Admin Dose 6.25 MG; Start 01/15/17 at 09:00 IV Flush 10 ml 10 ml PRN PRN IV IV PROTOCOL; Start 01/15/17 at 21:30 Vancomycin HCl/ Sodium Chloride (Vancocin/NS) 250 ml @ 83.333 mls/ hr Q12H IVPB Last administered on 01/17/17 00:52; Admin Dose 83.333 MLS/HR; Start at 13:00 Miscellaneous Information (*Rx Drug Level Order Reminder*) VANCOMYCIN TROUGH AT 1200 ONCE ONCE XX ; Start 01/17/17 at 12:00; Stop 01/17/17 at 12:01 Lisinopril (Zestril) 2.5 mg DAILY PO Last administered on 01/17/17 08:15; Admin Dose 2.5 MG; Start 01/17/17 at 09:00 Assessment/Plan Chief Complaint/Hosp Course 56 yo female with hx of methamphetamine abuse EF 20%, afib with RVR admitted with respiratory failure from acute on chronic CHF exacerbation being tx for sepsis with persistent encephalopathy. 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
--- NOTE | 2017-01-17 14:43 | PN ---
DATE: 01/17/2017 SUBJECTIVE: No events overnight. The patient is alert, feels good. Denies pain, discomfort. No f guicho. VITAL SIGNS: Temperature 98, pulse 102, respirations 20, blood pressure 97/64, saturation 95% on 2 liters. LABORATORY DATA: WBC 4.8, H and H 11.1 and 37, platelets 154, no shift, no bands. BUN 5, creatinin e 0.67. MICROBIOLOGY: Blood cultures since admission grew Corynebacterium species and coagulase-negative st aph species. Urine culture negative. ANTIMICROBIALS: The patient is on IV vancomycin. INDWELLINGS: Right upper extremity PICC line. DIAGNOSTICS: Chest x-ray from yesterday revealed pulmonary edema with mild left basilar atelectasis and small left pleural effusion. PHYSICAL EXAMINATION: GENERAL: A well-developed, middle-aged white woman who is alert, in no distress. HEENT: Head atraumatic, normocephalic. Sclerae anicteric. Buccal mucosa dry. NECK: Supple. CHEST: Rise symmetrical. Breath sounds diminished to bases. HEART: S1, S2. ABDOMEN: Soft, bowel sounds present. EXTREMITIES: Without cyanosis. ASSESSMENT: 1. Status post shock. 2. Coagulase-negative staph bacteremia, 2D echocardiogram revealed no vegetations. 3. Severe cardiomyopathy with ejection fraction 15-20%. 4. Resolving encephalopathy. 5. Status post rapid atrial flutter, atrial fibrillation. 6. Diabetes. 7. History of substance abuse. PLAN: Remains stable. She is being followed by multiple consultants, pending repeat blood cultures , continue on current antibiotics. Continue anti-aspiration precautions. Dictated By: CHRISTIANO CHRISTIANSON [employer] D[employer] INSPECTOR for JERRY GUILLEN/NAGA Conf#: [id number] DID#: [id number]
--- NOTE | 2017-01-17 16:59 | PN ---
Date/Time of Note Date/Time of Note DATE: 01/17/17 TIME: 16:54 Assessment/Plan VTE Prophylaxis VTE Prophylaxis Intervention: LMWH Assessment/Plan Chief Complaint/Hosp Course 1. Acute respiratory failure secondary to acute on chronic systolic CHF exacerbation-extubated Now tolerating nasal cannula Downgrade to telemetry Continue diuresis 2. Paroxysmal A-fib with RVR in the setting of methamphetamine use-stable Patient is status post diltiazem with consequential hypotension which is now resolved Continue amiodarone and Lovenox 3. Cardiogenic shock-resolved 4. Chronic Moderate-severe MR 5. DIANNA-resolved 6. Acute encephalopathy possibly secondary to methamphetamine withdrawal- improved CT head and MRI show no acute findings Neurology consultation appreciated 7. Bacteremia secondary to staph Continue vancomycin ID consultation appreciated Prophylaxis: Lovenox Problems: Subjective 24 Hr Interval Summary Constitutional: no complaints Exam/Review of Systems Vital Signs Vitals Vital Signs Date Time Temp Pulse Resp B/P Pulse Ox O2 Delivery O2 Flow Rate FiO2 01/17/17 16:40 16 90/82 98 01/17/17 16:00 120 01/17/17 16:00 98.9 01/17/17 14:00 Nasal Cannula 2.0 01/17/17 01:56 30 Intake and Output 01/16/17 01/16/17 01/17/17 15:00 23:00 07:00 Intake Total 250 ml 500 ml Output Total 810 ml 290 ml 1425 ml Balance -810 ml -40 ml -925 ml Exam Constitutional: alert Psych: confusion Respiratory: clear to auscultation Cardiovascular: regular rate and rhythm Gastrointestinal: soft, No distended Musculoskeletal: nl extremities to inspection Results Result Diagram: 01/17/17 0445 01/17/17 0445 Results 24 hrs Laboratory Tests Test 01/16/17 17:08 01/16/17 21:22 01/17/17 00:54 01/17/17 04:45 Bedside Glucose 87 88 79 White Blood Count 4.8 Red Blood Count 4.09 L Hemoglobin 11.4 L Hematocrit 37.0 Mean Corpuscular Volume 90.5 Mean Corpuscular Hemoglobin 27.9 L Mean Corpuscular Hemoglobin Concent 30.8 L Red Cell Distribution Width 19.5 H Platelet Count 154 Mean Platelet Volume 9.0 Neutrophils % 69.2 Lymphocytes % 15.3 Monocytes % 8.1 Eosinophils % 6.6 Basophils % 0.4 Nucleated Red Blood Cells % 0.0 Neutrophils # 3.3 Lymphocytes # 0.7 L Monocytes # 0.4 Eosinophils # 0.3 Basophils # 0.0 Nucleated Red Blood Cells # 0.0 Sodium Level 144 Potassium Level 3.5 Chloride Level 102 Carbon Dioxide Level 33 H Anion Gap 13 Blood Urea Nitrogen 5 L Creatinine 0.67 Glucose Level 99 Calcium Level 8.1 L Magnesium Level 1.8 Test 01/17/17 04:47 01/17/17 09:13 01/17/17 11:56 01/17/17 13:44 Bedside Glucose 96 93 119 Vancomycin Level Trough 16.5 Medications Medications Current Medications Acetaminophen (Tylenol Tab) 650 mg Q6H PRN PO PAIN LEVEL 1-3 OR FEVER Last administered on 01/11/17 00:23; Admin Dose 650 MG; Start 01/11/17 at 00:00 Docusate Sodium (Colace) 100 mg Q12H PRN PO CONSTIPATION; Start 01/11/17 at 00 :00 Bisacodyl (Dulcolax) 5 mg DAILY PRN PO CONSTIPATION; Start 01/11/17 at 00:00 Famotidine (Pepcid) 20 mg Q12 PO Last administered on 01/17/17 08:14; Admin Dose 20 MG; Start 01/11/17 at 00:00 Enoxaparin Sodium (Lovenox) 100 mg Q12 SC Last administered on 01/17/17 08:16 ; Admin Dose 100 MG; Start 01/11/17 at 00:00 Lorazepam (Ativan) 1 mg Q4H PRN IV AGITATION/ANXIETY Last administered on 01/16 02:34; Admin Dose 1 MG; Start 01/11/17 at 01:30 Aspirin (Halfprin) 81 mg DAILY PO Last administered on 01/17/17 08:14; Admin Dose 81 MG; Start 01/11/17 at 09:00 Miscellaneous Information 1 ea NOTE XX ; Start 01/11/17 at 02:00 Glucose (Glutose) 15 gm Q15M PRN PO DECREASED GLUCOSE; Start 01/11/17 at 02:00 Glucose (Glutose) 22.5 gm Q15M PRN PO DECREASED GLUCOSE; Start 01/11/17 at 02: 00 Dextrose (D50w Syringe) 25 ml Q15M PRN IV DECREASED GLUCOSE Last administered on 01/15/17 05:38; Admin Dose 25 ML; Start 01/11/17 at 02:00 Dextrose (D50w Syringe) 50 ml Q15M PRN IV DECREASED GLUCOSE; Start 01/11/17 at 02:00 Glucagon (Glucagen) 1 mg Q15M PRN IM DECREASED GLUCOSE; Start 01/11/17 at 02: 00 Glucose 15 gm 15 gm Q15M PRN BUCCAL DECREASED GLUCOSE; Start 01/11/17 at 02:00 Norepinephrine 16 mg/Dextrose 500 ml @ 0 mls/hr TITRATE IV Last administered on 01/14/17 02:42; Admin Dose 9.37 MLS/HR; Start 01/11/17 at 15:00 Fentanyl 100 ml @ 2.5 mls/hr TITRATE IV Last administered on 01/14/17 08:37 ; Admin Dose 7.5 MLS/HR; Start 01/11/17 at 23:30; Status Future hold Midazolam HCl (Versed) 50 ml @ 1 mls/hr TITRATE IV Last administered on 08:14; Admin Dose 9 MLS/HR; Start 01/12/17 at 01:30; Status Future hold Insulin Aspart (Adult SC Insulin - Mild Algorithm)... Q4 SC Last administered on 01/12/17 17:28; Admin Dose 1 UNIT; Start 01/12/17 at 09:00 Dobutamine HCl/ Dextrose 250 ml @ 7.748 mls/ hr TITRATE IV Last administered on 01/14/17 07:23; Admin Dose 12.396 MLS/HR; Start 01/12/17 at 12:30 Amiodarone HCl (Cordarone) 200 mg TID PO Last administered on 01/17/17 13:54 ; Admin Dose 200 MG; Start 01/12/17 at 21:00 Carvedilol (Coreg) 6.25 mg BID NGT Last administered on 01/17/17 08:15; Admin Dose 6.25 MG; Start 01/15/17 at 09:00 IV Flush 10 ml 10 ml PRN PRN IV IV PROTOCOL; Start 01/15/17 at 21:30 Vancomycin HCl/ Sodium Chloride (Vancocin/NS) 250 ml @ 83.333 mls/ hr Q12H IVPB Last administered on 10/26/17at 13:54; Admin Dose 83.333 MLS/HR; Start at 13:00; Stop 01/17/17 at 17:00 Lisinopril 2.5 mg 2.5 mg DAILY PO Last administered on 01/17/17t 08:15; Admin Dose 2.5 MG; Start 01/17/17 at 09:00 Vancomycin HCl (Vancocin) 250 ml @ 125 mls/hr Q12H IVPB ; Start 01/18/17 at 04 :00 MAURILIO AMEZQUITA Jan 17, 2017 16:59
--- NOTE | 2017-01-17 17:47 | CONS ---
Date/Time of Note Date/Time of Note DATE: 01/17/17 TIME: 17:44 Assessment/Plan Assessment/Plan Chief Complaint/Hosp Course IMPRESSION 1. Hypotension/shock-improved off of pressors/inotropes 2. Atrial flutter with variable response and some mild RVR 3. History of cardiomyopathy with severely depressed left ventricular ejection fraction. 4. Congestive heart failure by chest x-ray, systolic, acute on chronic 5. Substance abuse including methamphetamines. 6. History of cerebrovascular accident. 7. Diabetes mellitus. 8. History of chronic obstructive pulmonary disease. Recc: -Ok to transfer to tele -Continue PO amio in attempt to return patient to SR -Continue ACEI/BB as tolerated -GIVe additional IVP digoxin with possible need to start CCB or change coreg to alternative BB -Continue asa -Contneu lasix diuresis and follow volume status clsoely Problems: Consultation Date/Type/Reason Admit Date/Time Jan 10, 2017 at 22:38 Initial Consult Date 01/11/2017 Type of Consultation: cardiology Reason for Consultation cardiomyopathy/CHF/AF/AFL Referring Provider: MAURILIO AMEZQUITA Exam/Review of Systems Vital Signs Vitals Vital Signs Date Time Temp Pulse Resp B/P Pulse Ox O2 Delivery O2 Flow Rate FiO2 01/17/17 16:40 16 90/82 98 01/17/17 16:00 120 01/17/17 16:00 98.9 01/17/17 14:00 Nasal Cannula 2.0 01/17/17 01:56 30 Intake and Output 01/16/17 01/16/17 01/17/17 15:00 23:00 07:00 Intake Total 250 ml 500 ml Output Total 810 ml 290 ml 1425 ml Balance -810 ml -40 ml -925 ml Exam Review of Systems: CONSTITUTIONAL: No fevers, chills. PULMONARY: No sob CARDIOVASCULAR: No chest pain/palpitations GASTROINTESTINAL: No nausea/vomiting. GENITOURINARY: No hematuria/dysuria. MUSCULOSKELETAL: No myagias/arthalgias. PSYCHIATRIC: The patient denies depression. NEUROLOGIC: mild generalized weakness Constitutional: alert Psych: no complaints Head: normocephalic ENMT: mucosa pink and moist Neck: jvd (9 cm water), supple Respiratory: diminished breath sounds (at bases/B) Cardiovascular: regular rate and rhythm Gastrointestinal: non-tender, soft Musculoskeletal: muscle tone (normal) Extremities: pitting pedal edema (bilateral LE) Neurological: lethargic Results Result Diagram: 01/17/17 0445 01/17/17 0445 Results 24 hrs Laboratory Tests Test 01/16/17 21:22 01/17/17 00:54 01/17/17 04:45 01/17/17 04:47 Bedside Glucose 88 79 96 White Blood Count 4.8 Red Blood Count 4.09 L Hemoglobin 11.4 L Hematocrit 37.0 Mean Corpuscular Volume 90.5 Mean Corpuscular Hemoglobin 27.9 L Mean Corpuscular Hemoglobin Concent 30.8 L Red Cell Distribution Width 19.5 H Platelet Count 154 Mean Platelet Volume 9.0 Neutrophils % 69.2 Lymphocytes % 15.3 Monocytes % 8.1 Eosinophils % 6.6 Basophils % 0.4 Nucleated Red Blood Cells % 0.0 Neutrophils # 3.3 Lymphocytes # 0.7 L Monocytes # 0.4 Eosinophils # 0.3 Basophils # 0.0 Nucleated Red Blood Cells # 0.0 Sodium Level 144 Potassium Level 3.5 Chloride Level 102 Carbon Dioxide Level 33 H Anion Gap 13 Blood Urea Nitrogen 5 L Creatinine 0.67 Glucose Level 99 Calcium Level 8.1 L Magnesium Level 1.8 Test 01/17/17 09:13 01/17/17 11:56 01/17/17 13:44 01/17/17 17:16 Bedside Glucose 93 119 163 Vancomycin Level Trough 16.5 Medications Medications Current Medications Acetaminophen (Tylenol Tab) 650 mg Q6H PRN PO PAIN LEVEL 1-3 OR FEVER Last administered on 01/11/17 00:23; Admin Dose 650 MG; Start 01/11/17 at 00:00 Docusate Sodium (Colace) 100 mg Q12H PRN PO CONSTIPATION; Start 01/11/17 at 00 :00 Bisacodyl (Dulcolax) 5 mg DAILY PRN PO CONSTIPATION; Start 01/11/17 at 00:00 Famotidine (Pepcid) 20 mg Q12 PO Last administered on 01/17/17 08:14; Admin Dose 20 MG; Start 01/11/17 at 00:00 Enoxaparin Sodium (Lovenox) 100 mg Q12 SC Last administered on 01/17/17 08:16 ; Admin Dose 100 MG; Start 01/11/17 at 00:00 Lorazepam (Ativan) 1 mg Q4H PRN IV AGITATION/ANXIETY Last administered on 01/16 02:34; Admin Dose 1 MG; Start 01/11/17 at 01:30 Aspirin (Halfprin) 81 mg DAILY PO Last administered on 01/17/17 08:14; Admin Dose 81 MG; Start 01/11/17 at 09:00 Miscellaneous Information 1 ea NOTE XX ; Start 01/11/17 at 02:00 Glucose (Glutose) 15 gm Q15M PRN PO DECREASED GLUCOSE; Start 01/11/17 at 02:00 Glucose (Glutose) 22.5 gm Q15M PRN PO DECREASED GLUCOSE; Start 01/11/17 at 02: 00 Dextrose (D50w Syringe) 25 ml Q15M PRN IV DECREASED GLUCOSE Last administered on 01/15/17 05:38; Admin Dose 25 ML; Start 01/11/17 at 02:00 Dextrose (D50w Syringe) 50 ml Q15M PRN IV DECREASED GLUCOSE; Start 01/11/17 at 02:00 Glucagon (Glucagen) 1 mg Q15M PRN IM DECREASED GLUCOSE; Start 01/11/17 at 02: 00 Glucose 15 gm 15 gm Q15M PRN BUCCAL DECREASED GLUCOSE; Start 01/11/17 at 02:00 Norepinephrine 16 mg/Dextrose 500 ml @ 0 mls/hr TITRATE IV Last administered on 01/14/17 02:42; Admin Dose 9.37 MLS/HR; Start 01/11/17 at 15:00 Fentanyl 100 ml @ 2.5 mls/hr TITRATE IV Last administered on 01/14/17 08:37 ; Admin Dose 7.5 MLS/HR; Start 01/11/17 at 23:30; Status Future hold Midazolam HCl (Versed) 50 ml @ 1 mls/hr TITRATE IV Last administered on 08:14; Admin Dose 9 MLS/HR; Start 01/12/17 at 01:30; Status Future hold Insulin Aspart (Adult SC Insulin - Mild Algorithm)... Q4 SC Last administered on 01/12/17 17:28; Admin Dose 1 UNIT; Start 01/12/17 at 09:00 Dobutamine HCl/ Dextrose 250 ml @ 7.748 mls/ hr TITRATE IV Last administered on 01/14/17 07:23; Admin Dose 12.396 MLS/HR; Start 01/12/17 at 12:30 Amiodarone HCl (Cordarone) 200 mg TID PO Last administered on 01/17/17 13:54 ; Admin Dose 200 MG; Start 01/12/17 at 21:00 Carvedilol (Coreg) 6.25 mg BID NGT Last administered on 01/17/17 08:15; Admin Dose 6.25 MG; Start 01/15/17 at 09:00 IV Flush (NS 10 ml) 10 ml PRN PRN IV IV PROTOCOL; Start 01/15/17 at 21:30 Lisinopril 2.5 mg 2.5 mg DAILY PO Last administered on 01/17/17 08:15; Admin Dose 2.5 MG; Start 01/17/17 at 09:00 Vancomycin HCl (Vancocin) 250 ml @ 125 mls/hr Q12H IVPB ; Start 01/18/17 at 04 :00 DAJA CROSS Jan 17, 2017 17:47
[2017-01-17] MEDS ORDERED: DIGOXIN 500 MCG INJ IV ONE (18:04)
[2017-01-17] MEDS: DIGOXIN 500 MCG INJ IV SCH (18:09)
[2017-01-17] MEDS: METOPROLOL (XL) 25 MG TAB PO SCH (21:00)
[2017-01-18] VITALS (13 sets, daily range): BP systolic 98–110; BP diastolic 50–82; PULSE 86–124; RESP 18–22
[2017-01-18] MEDS: Insulin NOVOLOG SS MILD Algorithm (NPO/TPN/ENTERAL FEEDS) SC SCH ×6 (01:00→21:02)
[2017-01-18] MEDS: DIGOXIN 500 MCG INJ IV SCH (01:44)
[2017-01-18] MEDS: ACETAMINOPHEN 325 MG TAB PO PRN (01:51)
[2017-01-18] MEDS: ALBUTEROL/IPRATROPIUM (NEB) 3 ML AMP HHN SCH ×4 (02:14→20:03)
[2017-01-18] MEDS ORDERED: VANCOMYCIN 1 GM in NS 250 ML IVPB SCH (04:00)
[2017-01-18] MEDS: FUROSEMIDE 40 MG INJ IV SCH (08:35)
[2017-01-18] MEDS: AMIODARONE 200 MG TAB PO SCH ×3 (08:35→20:58)
[2017-01-18] MEDS: ASPIRIN (EC) 81 MG TAB PO SCH (08:35)
[2017-01-18] MEDS: METOPROLOL (XL) 25 MG TAB PO SCH ×2 (08:36→20:59)
[2017-01-18] MEDS: FAMOTIDINE 20 MG TAB PO SCH ×2 (08:36→20:58)
[2017-01-18] MEDS: LISINOPRIL 5 MG TAB PO SCH (08:37)
[2017-01-18] MEDS: ENOXAPARIN 100 MG/ML SYG SC SCH ×2 (08:50→21:01)
[2017-01-18 10:03] LABS: BASOPHILS % 0.5 % (0.0-2.0); EOSINOPHILS # 0.5 10^3/ul (0.0-0.5); EOSINOPHILS % 7.8 % (0.0-7.0); HEMATOCRIT 40.3 % (37.0-47.0); HEMOGLOBIN 12.5 g/dl (12.0-16.0); LYMPHOCYTES # 1.1 10^3/ul (0.8-2.9); LYMPHOCYTES % 18.2 % (15.0-51.0); MEAN CORPUSCULAR VOLUME 90.2 fl (82.0-101.0); MEAN PLATELET VOLUME 9.6 fl (7.4-10.4); MONOCYTE # 0.5 10^3/ul (0.3-0.9); MONOCYTES % 7.8 % (0.0-11.0); NEUTROPHIL # 4.1 10^3/ul (1.6-7.5); NEUTROPHILS % 65.1 % (39.0-77.0); PLATELET COUNT 175 10^3/UL (140-415); RED BLOOD COUNT 4.47 10^6/ul (4.20-5.40); RED CELL DISTRIBUTION WIDTH 19.4 % (11.5-14.5); WHITE BLOOD COUNT 6.3 10^3/ul (4.8-10.8)
--- NOTE | 2017-01-18 10:06 | CONS ---
Date/Time of Note Date/Time of Note DATE: 01/18/17 TIME: 10:04 Assessment/Plan Assessment/Plan Additional Assessment/Plan Assessment recommendations; 1. Patient admitted with shock due to underlying CHF with amphetamine overdose. Clinically markedly improved. 2. History of cardiac arrhythmia with atrial flutter. 3. Chronic renal insufficiency. 4. Diabetes. 5. Systemic hypertension. Continue current supportive care. Patient is responding very well to current treatment regimen. Consultation Date/Type/Reason Admit Date/Time Jan 10, 2017 at 22:38 Initial Consult Date 01/16/17 Type of Consultation: Pulmonary Referring Provider: MAURILIO AMEZQUITA 24 HR Interval Summary Free Text/Dictation Patient's condition is stable. Has been transferred out of ICU. Denies any significant shortness of breath. Complains of very scant cough. General exam; middle-aged woman, awake and alert. Currently in no distress. Exam/Review of Systems Vital Signs Vitals Vital Signs Date Time Temp Pulse Resp B/P Pulse Ox O2 Delivery O2 Flow Rate FiO2 01/18/17 08:39 94 01/18/17 08:13 2.0 01/18/17 08:13 18 99 Nasal Cannula 01/18/17 04:00 98.8 110/82 01/17/17 01:56 30 Intake and Output 01/17/17 01/17/17 01/18/17 15:00 23:00 07:00 Intake Total 709 ml 166 ml Output Total 1560 ml 50 ml Balance -851 ml 116 ml Exam HEENT exam; supple neck, positive JVD. No lymphadenopathy. Midline trachea. No thyromegaly. Patient has a multiple carious teeth. Chest exam; diminished but clear breath sounds. S1-S2 audible, no murmurs. Irregular rhythm. Abdomen exam; soft, nontender. No organomegaly. Bowel sounds audible. Extremity exam; trace edema. 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 Results Result Diagram: 01/17/17 0445 01/17/17 0445 Results 24 hrs Laboratory Tests Test 01/17/17 11:56 01/17/17 13:44 01/17/17 17:16 01/17/17 21:36 Vancomycin Level Trough 16.5 Bedside Glucose 119 163 138 Test 01/18/17 04:51 01/18/17 08:30 01/18/17 09:26 Bedside Glucose 172 162 White Blood Count Pending Red Blood Count Pending Hemoglobin Pending Hematocrit Pending Mean Corpuscular Volume Pending Mean Corpuscular Hemoglobin Pending Mean Corpuscular Hemoglobin Concent Pending Red Cell Distribution Width Pending Platelet Count Pending Mean Platelet Volume Pending Medications Medications Current Medications Acetaminophen (Tylenol Tab) 650 mg Q6H PRN PO PAIN LEVEL 1-3 OR FEVER Last administered on 01/18/17 01:51; Admin Dose 650 MG; Start 01/11/17 at 00:00 Docusate Sodium (Colace) 100 mg Q12H PRN PO CONSTIPATION; Start 01/11/17 at 00 :00 Bisacodyl (Dulcolax) 5 mg DAILY PRN PO CONSTIPATION; Start 01/11/17 at 00:00 Famotidine (Pepcid) 20 mg Q12 PO Last administered on 01/18/17 08:36; Admin Dose 20 MG; Start 01/11/17 at 00:00 Enoxaparin Sodium (Lovenox) 100 mg Q12 SC Last administered on 01/17/17 21:41 ; Admin Dose 100 MG; Start 01/11/17 at 00:00 Lorazepam (Ativan) 1 mg Q4H PRN IV AGITATION/ANXIETY Last administered on 01/16 02:34; Admin Dose 1 MG; Start 01/11/17 at 01:30 Aspirin (Halfprin) 81 mg DAILY PO Last administered on 01/18/17 08:35; Admin Dose 81 MG; Start 01/11/17 at 09:00 Miscellaneous Information 1 ea NOTE XX ; Start 01/11/17 at 02:00 Glucose (Glutose) 15 gm Q15M PRN PO DECREASED GLUCOSE; Start 01/11/17 at 02:00 Glucose (Glutose) 22.5 gm Q15M PRN PO DECREASED GLUCOSE; Start 01/11/17 at 02: 00 Dextrose (D50w Syringe) 25 ml Q15M PRN IV DECREASED GLUCOSE Last administered on 01/15/17 05:38; Admin Dose 25 ML; Start 01/11/17 at 02:00 Dextrose (D50w Syringe) 50 ml Q15M PRN IV DECREASED GLUCOSE; Start 01/11/17 at 02:00 Glucagon (Glucagen) 1 mg Q15M PRN IM DECREASED GLUCOSE; Start 01/11/17 at 02: 00 Glucose (Glutose) 15 gm Q15M PRN BUCCAL DECREASED GLUCOSE; Start 01/11/17 at 02:00 Insulin Aspart (Adult SC Insulin - Mild Algorithm)... Q4 SC Last administered on 01/18/17 08:33; Admin Dose 1 UNIT; Start 01/12/17 at 09:00 Dobutamine HCl/ Dextrose 250 ml @ 7.748 mls/ hr TITRATE IV Last administered on 01/14/17 07:23; Admin Dose 12.396 MLS/HR; Start 01/12/17 at 12:30 Amiodarone HCl (Cordarone) 200 mg TID PO Last administered on 01/18/17 08:35 ; Admin Dose 200 MG; Start 01/12/17 at 21:00 IV Flush (NS 10 ml) 10 ml PRN PRN IV IV PROTOCOL; Start 01/15/17 at 21:30 Lisinopril 2.5 mg 2.5 mg DAILY PO Last administered on 01/18/17 08:37; Admin Dose 2.5 MG; Start 01/17/17 at 09:00 Vancomycin HCl (Vancocin) 250 ml @ 125 mls/hr Q12H IVPB ; Start 01/18/17 at 04 :00 Furosemide (Lasix) 40 mg DAILY IV Last administered on 01/18/17 08:35; Admin Dose 40 MG; Start 01/18/17 at 09:00 Metoprolol Succinate (Toprol Xl) 25 mg BID PO Last administered on 01/18/17 08:36; Admin Dose 25 MG; Start 01/17/17 at 21:00 Miscellaneous Information Patients own medicat... BID@10, XX ; Start at 10:00 AMADOR HERRING Jan 18, 2017 10:06
[2017-01-18 10:41] LABS: CALCIUM 9.2 mg/dl (8.4-10.2); CREATININE 0.86 mg/dl (0.44-1.00); MAGNESIUM 1.5 mg/dl (1.7-2.5); PHOSPHORUS 3.7 mg/dl (2.5-4.9); POTASSIUM 3.5 mmol/L (3.5-5.1)
[2017-01-18] MEDS: VANCOMYCIN 1 GM in NS 250 ML IVPB SCH (12:27)
[2017-01-18] MEDS ORDERED: MAGNESIUM SULFATE 4 GM/100 ML 100 ML IVPB ONE (14:00)
--- NOTE | 2017-01-18 14:47 | CONS ---
Date/Time of Note Date/Time of Note DATE: 01/18/17 TIME: 14:46 Consult Date/Type/Reason Admit Date/Time Jan 10, 2017 at 22:38 Initial Consult Date 01/16/17 Type of Consultation: ID Ordering Provider: MAURILIO AMEZQUITA Objective Vital Signs Date Time Temp Pulse Resp B/P Pulse Ox O2 Delivery O2 Flow Rate FiO2 01/18/17 13:44 95 21 01/18/17 13:44 108 20 01/18/17 11:37 97.7 102/63 Room Air 01/18/17 08:13 2.0 Intake and Output 01/17/17 01/17/17 01/18/17 15:00 23:00 07:00 Intake Total 709 ml 166 ml Output Total 1560 ml 50 ml Balance -851 ml 116 ml Results/Medications Result Diagram: 01/18/1792501/18/17925 Results 24 hrs Laboratory Tests Test 01/17/17 17:16 01/17/17 21:36 01/18/17 04:51 01/18/17 08:30 Bedside Glucose 163 138 172 162 Test 01/18/17 09:26 01/18/17 12:16 White Blood Count 6.3 # Red Blood Count 4.47 Hemoglobin 12.5 Hematocrit 40.3 Mean Corpuscular Volume 90.2 Mean Corpuscular Hemoglobin 28.0 L Mean Corpuscular Hemoglobin Concent 31.0 L Red Cell Distribution Width 19.4 H Platelet Count 175 Mean Platelet Volume 9.6 Neutrophils % 65.1 Lymphocytes % 18.2 Monocytes % 7.8 Eosinophils % 7.8 H Basophils % 0.5 Nucleated Red Blood Cells % 0.0 Neutrophils # 4.1 Lymphocytes # 1.1 Monocytes # 0.5 Eosinophils # 0.5 Basophils # 0.0 Nucleated Red Blood Cells # 0.0 Sodium Level 142 Potassium Level 3.5 Chloride Level 94 L Carbon Dioxide Level 36 H Anion Gap 16 Blood Urea Nitrogen 10 Creatinine 0.86 Glucose Level 153 Calcium Level 9.2 Phosphorus Level 3.7 Magnesium Level 1.5 L Bedside Glucose 167 Medications Current Medications Acetaminophen (Tylenol Tab) 650 mg Q6H PRN PO PAIN LEVEL 1-3 OR FEVER Last administered on 01/18/17t 01:51; Admin Dose 650 MG; Start 01/11/17 at 00:00 Docusate Sodium (Colace) 100 mg Q12H PRN PO CONSTIPATION; Start 01/11/17 at 00 :00 Bisacodyl (Dulcolax) 5 mg DAILY PRN PO CONSTIPATION; Start 01/11/17 at 00:00 Famotidine (Pepcid) 20 mg Q12 PO Last administered on 01/18/17 08:36; Admin Dose 20 MG; Start 01/11/17 at 00:00 Enoxaparin Sodium (Lovenox) 100 mg Q12 SC Last administered on 01/17/17 21:41 ; Admin Dose 100 MG; Start 01/11/17 at 00:00 Lorazepam (Ativan) 1 mg Q4H PRN IV AGITATION/ANXIETY Last administered on 01/16 02:34; Admin Dose 1 MG; Start 01/11/17 at 01:30 Aspirin (Halfprin) 81 mg DAILY PO Last administered on 01/18/17 08:35; Admin Dose 81 MG; Start 01/11/17 at 09:00 Miscellaneous Information 1 ea NOTE XX ; Start 01/11/17 at 02:00 Glucose (Glutose) 15 gm Q15M PRN PO DECREASED GLUCOSE; Start 01/11/17 at 02:00 Glucose (Glutose) 22.5 gm Q15M PRN PO DECREASED GLUCOSE; Start 01/11/17 at 02: 00 Dextrose (D50w Syringe) 25 ml Q15M PRN IV DECREASED GLUCOSE Last administered on 01/15/17 05:38; Admin Dose 25 ML; Start 01/11/17 at 02:00 Dextrose (D50w Syringe) 50 ml Q15M PRN IV DECREASED GLUCOSE; Start 01/11/17 at 02:00 Glucagon (Glucagen) 1 mg Q15M PRN IM DECREASED GLUCOSE; Start 01/11/17 at 02: 00 Glucose (Glutose) 15 gm Q15M PRN BUCCAL DECREASED GLUCOSE; Start 01/11/17 at 02:00 Insulin Aspart (Adult SC Insulin - Mild Algorithm)... Q4 SC Last administered on 01/18/17 12:19; Admin Dose 1 UNIT; Start 01/12/17 at 09:00 Dobutamine HCl/ Dextrose 250 ml @ 7.748 mls/ hr TITRATE IV Last administered on 01/14/17 07:23; Admin Dose 12.396 MLS/HR; Start 01/12/17 at 12:30; Status Future Hold Amiodarone HCl (Cordarone) 200 mg TID PO Last administered on 01/18/17 12:27 ; Admin Dose 200 MG; Start 01/12/17 at 21:00 IV Flush (NS 10 ml) 10 ml PRN PRN IV IV PROTOCOL; Start 01/15/17 at 21:30 Lisinopril (Zestril) 2.5 mg DAILY PO Last administered on 01/18/17 08:37; Admin Dose 2.5 MG; Start 01/17/17 at 09:00 Furosemide (Lasix) 40 mg DAILY IV Last administered on 01/18/17 08:35; Admin Dose 40 MG; Start 01/18/17 at 09:00 Metoprolol Succinate (Toprol Xl) 25 mg BID PO Last administered on 01/18/17 08:36; Admin Dose 25 MG; Start 01/17/17 at 21:00 Miscellaneous Information Patients own medicat... BID@10,16 XX ; Start at 10:00 Vancomycin HCl 250 ml @ 125 mls/hr Q12H IVPB Last administered on 01/18/17 12:27; Admin Dose 125 MLS/HR; Start 01/18/17 at 12:00 Magnesium Sulfate (Magnesium Sulfate 4 Gm/100 ml) 100 ml @ 25 mls/hr ONCE ONCE IVPB ; Start 01/18/17 at 14:00; Stop 01/18/17 at 17:59 Assessment/Plan Chief Complaint/Hosp Course SUBJECTIVE: No events overnight. The patient is alert, feels good. Denies pain, discomfort. No fevers. MICROBIOLOGY: Blood cultures since admission grew Corynebacterium species and coagulase-negative staph species. Urine culture negative. ANTIMICROBIALS: The patient is on IV vancomycin. INDWELLINGS: Right upper extremity PICC line. DIAGNOSTICS: Chest x-ray from yesterday revealed pulmonary edema with mild left basilar atelectasis and small left pleural effusion. PHYSICAL EXAMINATION: GENERAL: A well-developed, middle-aged white woman who is alert, in no distress. HEENT: Head atraumatic, normocephalic. Sclerae anicteric. Buccal mucosa dry. NECK: Supple. CHEST: Rise symmetrical. Breath sounds diminished to bases. HEART: S1, S2. ABDOMEN: Soft, bowel sounds present. EXTREMITIES: Without cyanosis. ASSESSMENT: 1. Status post shock. 2. Coagulase-negative staph bacteremia, 2D echocardiogram revealed no vegetations. 3. Severe cardiomyopathy with ejection fraction 15-20%. 4. Resolving encephalopathy. 5. Status post rapid atrial flutter, atrial fibrillation. 6. Diabetes. 7. History of substance abuse. PLAN: Remains stable. Continue abx, f/u repeat bld cx, card/pulmonary/neuro rec -s DW staff/pt Problems: CHRISTIANO CHRISTIANSON NP Jan 18, 2017 14:47
--- NOTE | 2017-01-18 16:06 | CONS ---
Date/Time of Note Date/Time of Note DATE: 01/18/17 TIME: 16:00 Assessment/Plan Assessment/Plan Chief Complaint/Hosp Course IMPRESSION 1. Hypotension/shock-improved off of pressors/inotropes 2. Atrial flutter with variable response and some mild RVR 3. History of cardiomyopathy with severely depressed left ventricular ejection fraction. 4. Congestive heart failure by chest x-ray, systolic, acute on chronic 5. Substance abuse including methamphetamines. 6. History of cerebrovascular accident. 7. Diabetes mellitus. 8. History of chronic obstructive pulmonary disease. Recc: -Tele -Continue PO amio in attempt to return patient to SR -Continue ACEI/BB as tolerated -Continue toprol and start digoxin -Continue asa -Continue lasix diuresis daily at this time and follow volume status closely Problems: Consultation Date/Type/Reason Admit Date/Time Jan 10, 2017 at 22:38 Initial Consult Date 01/11/2017 Type of Consultation: cardiology Reason for Consultation Cardiomyopathy/AFL Referring Provider: MAURILIO AMEZQUITA Exam/Review of Systems Vital Signs Vitals Vital Signs Date Time Temp Pulse Resp B/P Pulse Ox O2 Delivery O2 Flow Rate FiO2 01/18/17 13:44 95 21 01/18/17 13:44 108 20 01/18/17 11:37 97.7 102/63 Room Air 01/18/17 08:13 2.0 Intake and Output 01/17/17 01/17/17 01/18/17 15:00 23:00 07:00 Intake Total 709 ml 166 ml Output Total 1560 ml 50 ml Balance -851 ml 116 ml Exam Review of Systems: CONSTITUTIONAL: No fevers, chills. PULMONARY: No sob CARDIOVASCULAR: No chest pain/palpitations GASTROINTESTINAL: No nausea/vomiting. GENITOURINARY: No hematuria/dysuria. MUSCULOSKELETAL: No myagias/arthalgias. PSYCHIATRIC: The patient denies depression. NEUROLOGIC: No weakness Constitutional: alert Psych: no complaints Head: normocephalic ENMT: mucosa pink and moist Neck: jvd (9 cm water), supple Respiratory: diminished breath sounds (at bases/B) Cardiovascular: irregular rhythm Gastrointestinal: non-tender, soft Musculoskeletal: muscle tone (normal) Extremities: edema (trace/B) Neurological: lethargic (somewhat) Results Result Diagram: 10/27/17 0926 10/27/17 0926 Results 24 hrs Laboratory Tests Test 01/17/17 17:16 01/17/17 21:36 01/18/17 04:51 01/18/17 08:30 Bedside Glucose 163 138 172 162 Test 01/18/17 09:26 01/18/17 12:16 White Blood Count 6.3 # Red Blood Count 4.47 Hemoglobin 12.5 Hematocrit 40.3 Mean Corpuscular Volume 90.2 Mean Corpuscular Hemoglobin 28.0 L Mean Corpuscular Hemoglobin Concent 31.0 L Red Cell Distribution Width 19.4 H Platelet Count 175 Mean Platelet Volume 9.6 Neutrophils % 65.1 Lymphocytes % 18.2 Monocytes % 7.8 Eosinophils % 7.8 H Basophils % 0.5 Nucleated Red Blood Cells % 0.0 Neutrophils # 4.1 Lymphocytes # 1.1 Monocytes # 0.5 Eosinophils # 0.5 Basophils # 0.0 Nucleated Red Blood Cells # 0.0 Sodium Level 142 Potassium Level 3.5 Chloride Level 94 L Carbon Dioxide Level 36 H Anion Gap 16 Blood Urea Nitrogen 10 Creatinine 0.86 Glucose Level 153 Calcium Level 9.2 Phosphorus Level 3.7 Magnesium Level 1.5 L Bedside Glucose 167 Medications Medications Current Medications Acetaminophen (Tylenol Tab) 650 mg Q6H PRN PO PAIN LEVEL 1-3 OR FEVER Last administered on 01/18/17 01:51; Admin Dose 650 MG; Start 01/11/17 at 00:00 Docusate Sodium (Colace) 100 mg Q12H PRN PO CONSTIPATION; Start 01/11/17 at 00 :00 Bisacodyl (Dulcolax) 5 mg DAILY PRN PO CONSTIPATION; Start 01/11/17 at 00:00 Famotidine (Pepcid) 20 mg Q12 PO Last administered on 01/18/17 08:36; Admin Dose 20 MG; Start 01/11/17 at 00:00 Enoxaparin Sodium (Lovenox) 100 mg Q12 SC Last administered on 01/17/17 21:41 ; Admin Dose 100 MG; Start 01/11/17 at 00:00 Lorazepam (Ativan) 1 mg Q4H PRN IV AGITATION/ANXIETY Last administered on 01/16 02:34; Admin Dose 1 MG; Start 01/11/17 at 01:30 Aspirin (Halfprin) 81 mg DAILY PO Last administered on 01/18/17 08:35; Admin Dose 81 MG; Start 01/11/17 at 09:00 Miscellaneous Information 1 ea NOTE XX ; Start 01/11/17 at 02:00 Glucose (Glutose) 15 gm Q15M PRN PO DECREASED GLUCOSE; Start 01/11/17 at 02:00 Glucose (Glutose) 22.5 gm Q15M PRN PO DECREASED GLUCOSE; Start 01/11/17 at 02: 00 Dextrose (D50w Syringe) 25 ml Q15M PRN IV DECREASED GLUCOSE Last administered on 01/15/17 05:38; Admin Dose 25 ML; Start 01/11/17 at 02:00 Dextrose (D50w Syringe) 50 ml Q15M PRN IV DECREASED GLUCOSE; Start 01/11/17 at 02:00 Glucagon (Glucagen) 1 mg Q15M PRN IM DECREASED GLUCOSE; Start 01/11/17 at 02: 00 Glucose (Glutose) 15 gm Q15M PRN BUCCAL DECREASED GLUCOSE; Start 01/11/17 at 02:00 Insulin Aspart (Adult SC Insulin - Mild Algorithm)... Q4 SC Last administered on 01/18/17 12:19; Admin Dose 1 UNIT; Start 01/12/17 at 09:00 Dobutamine HCl/ Dextrose 250 ml @ 7.748 mls/ hr TITRATE IV Last administered on 01/14/17 07:23; Admin Dose 12.396 MLS/HR; Start 01/12/17 at 12:30; Status Future Hold Amiodarone HCl (Cordarone) 200 mg TID PO Last administered on 01/18/17 12:27 ; Admin Dose 200 MG; Start 01/12/17 at 21:00 IV Flush (NS 10 ml) 10 ml PRN PRN IV IV PROTOCOL; Start 01/15/17 at 21:30 Lisinopril (Zestril) 2.5 mg DAILY PO Last administered on 01/18/17 08:37; Admin Dose 2.5 MG; Start 01/17/17 at 09:00 Furosemide (Lasix) 40 mg DAILY IV Last administered on 01/18/17 08:35; Admin Dose 40 MG; Start 01/18/17 at 09:00 Metoprolol Succinate (Toprol Xl) 25 mg BID PO Last administered on 01/18/17 08:36; Admin Dose 25 MG; Start 01/17/17 at 21:00 Miscellaneous Information Patients own medicat... BID@10,16 XX ; Start at 10:00 Vancomycin HCl 250 ml @ 125 mls/hr Q12H IVPB Last administered on 01/18/17 12:27; Admin Dose 125 MLS/HR; Start 01/18/17 at 12:00 Magnesium Sulfate (Magnesium Sulfate 4 Gm/100 ml) 100 ml @ 25 mls/hr ONCE ONCE IVPB Last administered on 01/18/17 14:45; Admin Dose 25 MLS/HR; Start 01/18/17 at 14:00; Stop 01/18/17 at 17:59 DAJA CROSS Jan 18, 2017 16:06
[2017-01-19] VITALS (11 sets, daily range): BP systolic 100–143; BP diastolic 65–87; PULSE 102–128; RESP 18
[2017-01-19] MEDS: VANCOMYCIN 1 GM in NS 250 ML IVPB SCH ×2 (00:33→12:55)
[2017-01-19] MEDS: Insulin NOVOLOG SS MILD Algorithm (NPO/TPN/ENTERAL FEEDS) SC SCH ×6 (01:44→21:55)
[2017-01-19] MEDS: ALBUTEROL/IPRATROPIUM (NEB) 3 ML AMP HHN SCH ×4 (01:50→20:31)
[2017-01-19] MEDS: ENOXAPARIN 100 MG/ML SYG SC SCH (08:22)
[2017-01-19] MEDS: ASPIRIN (EC) 81 MG TAB PO SCH (08:23)
[2017-01-19] MEDS: AMIODARONE 200 MG TAB PO SCH ×3 (08:24→21:56)
[2017-01-19] MEDS: METOPROLOL (XL) 25 MG TAB PO SCH ×2 (08:24→21:57)
[2017-01-19] MEDS: FAMOTIDINE 20 MG TAB PO SCH ×2 (08:24→20:13)
[2017-01-19] MEDS: FUROSEMIDE 40 MG INJ IV SCH (08:25)
[2017-01-19] MEDS: LISINOPRIL 5 MG TAB PO SCH (08:25)
[2017-01-19] MEDS ORDERED: ONDANSETRON 4 MG INJ IV PRN (09:00)
--- NOTE | 2017-01-19 11:31 | PN ---
Date/Time of Note Date/Time of Note DATE: 01/19/17 TIME: 11:24 Assessment/Plan VTE Prophylaxis VTE Prophylaxis Intervention: LMWH Assessment/Plan Chief Complaint/Hosp Course 1. Acute respiratory failure secondary to acute on chronic systolic CHF exacerbation-extubated Now tolerating nasal cannula Continue diuresis 2. Paroxysmal A-fib with RVR in the setting of methamphetamine use-rate still elevated Continue digoxin and metoprolol Continue amiodarone and Lovenox for stroke prophylaxis Cardiology following 3. Cardiogenic shock-resolved 4. Chronic Moderate-severe MR 5. DIANNA-resolved 6. Acute encephalopathy possibly secondary to methamphetamine withdrawal and hospital-acquired delirium-labile mentation Patient does have history of hospital acquired delirium during last hospitalization, patient appears to once again be delirious CT head and MRI show no acute findings Neurology consultation appreciated 7. Bacteremia secondary to staph Continue vancomycin ID consultation appreciated Prophylaxis: Lovenox Problems: Subjective 24 Hr Interval Summary Gastrointestinal: nausea Exam/Review of Systems Vital Signs Vitals Vital Signs Date Time Temp Pulse Resp B/P Pulse Ox O2 Delivery O2 Flow Rate FiO2 01/19/17 08:21 112 01/19/17 08:03 98.5 18 141/76 93 01/19/17 01:51 21 01/18/17 16:00 Room Air 01/18/17 08:13 2.0 Intake and Output 01/18/17 01/18/17 01/19/17 15:00 23:00 07:00 Intake Total 250 ml 2780 ml 1000 ml Output Total 2920 ml 500 ml Balance 250 ml -140 ml 500 ml Exam Constitutional: alert, distress Respiratory: clear to auscultation Cardiovascular: irregular rhythm Gastrointestinal: soft, No distended Musculoskeletal: nl extremities to inspection Results Result Diagram: 01/18/17 0926 01/18/17 0926 Results 24 hrs Laboratory Tests Test 01/18/17 12:16 01/18/17 17:52 01/18/17 20:56 01/19/17 01:29 Bedside Glucose 167 188 210 225 H Test 01/19/17 05:45 01/19/17 08:19 Bedside Glucose 161 173 Medications Medications Current Medications Acetaminophen (Tylenol Tab) 650 mg Q6H PRN PO PAIN LEVEL 1-3 OR FEVER Last administered on 01/18/17t 01:51; Admin Dose 650 MG; Start 01/11/17 at 00:00 Docusate Sodium (Colace) 100 mg Q12H PRN PO CONSTIPATION; Start 01/11/17 at 00 :00 Bisacodyl (Dulcolax) 5 mg DAILY PRN PO CONSTIPATION; Start 01/11/17 at 00:00 Famotidine (Pepcid) 20 mg Q12 PO Last administered on 01/19/17 08:24; Admin Dose 20 MG; Start 01/11/17 at 00:00 Enoxaparin Sodium (Lovenox) 100 mg Q12 SC Last administered on 01/19/17 08:22 ; Admin Dose 100 MG; Start 01/11/17 at 00:00 Lorazepam (Ativan) 1 mg Q4H PRN IV AGITATION/ANXIETY Last administered on 01/16 02:34; Admin Dose 1 MG; Start 01/11/17 at 01:30 Aspirin (Halfprin) 81 mg DAILY PO Last administered on 01/19/17 08:23; Admin Dose 81 MG; Start 01/11/17 at 09:00 Miscellaneous Information 1 ea NOTE XX ; Start 01/11/17 at 02:00 Glucose (Glutose) 15 gm Q15M PRN PO DECREASED GLUCOSE; Start 01/11/17 at 02:00 Glucose (Glutose) 22.5 gm Q15M PRN PO DECREASED GLUCOSE; Start 01/11/17 at 02: 00 Dextrose (D50w Syringe) 25 ml Q15M PRN IV DECREASED GLUCOSE Last administered on 01/15/17 05:38; Admin Dose 25 ML; Start 01/11/17 at 02:00 Dextrose (D50w Syringe) 50 ml Q15M PRN IV DECREASED GLUCOSE; Start 01/11/17 at 02:00 Glucagon (Glucagen) 1 mg Q15M PRN IM DECREASED GLUCOSE; Start 01/11/17 at 02: 00 Glucose (Glutose) 15 gm Q15M PRN BUCCAL DECREASED GLUCOSE; Start 01/11/17 at 02:00 Insulin Aspart (Adult SC Insulin - Mild Algorithm)... Q4 SC Last administered on 01/19/17 08:20; Admin Dose 1 UNIT; Start 01/12/17 at 09:00 Dobutamine HCl/ Dextrose 250 ml @ 7.748 mls/ hr TITRATE IV Last administered on 01/14/17 07:23; Admin Dose 12.396 MLS/HR; Start 01/12/17 at 12:30; Status Future Hold Amiodarone HCl (Cordarone) 200 mg TID PO Last administered on 01/19/17 08:24 ; Admin Dose 200 MG; Start 01/12/17 at 21:00 IV Flush (NS 10 ml) 10 ml PRN PRN IV IV PROTOCOL; Start 01/15/17 at 21:30 Lisinopril (Zestril) 2.5 mg DAILY PO Last administered on 01/19/17 08:25; Admin Dose 2.5 MG; Start 01/17/17 at 09:00 Furosemide (Lasix) 40 mg DAILY IV Last administered on 01/19/17 08:25; Admin Dose 40 MG; Start 01/18/17 at 09:00 Metoprolol Succinate (Toprol Xl) 25 mg BID PO Last administered on 01/19/17 08:24; Admin Dose 25 MG; Start 01/17/17 at 21:00 Miscellaneous Information Patients own medicat... BID@10,16 XX ; Start at 10:00 Vancomycin HCl (Vancocin) 250 ml @ 125 mls/hr Q12H IVPB Last administered on 01/19/17 00:33; Admin Dose 125 MLS/HR; Start 01/18/17 at 12:00 Digoxin (Digoxin) 0.125 mg DAILY@13 PO ; Start 01/19/17 at 13:00 Ondansetron HCl (Zofran Inj) 4 mg Q6H PRN IV NAUSEA AND/OR VOMITING Last administered on 01/19/17 08:53; Admin Dose 4 MG; Start 01/19/17 at 09:00 MAURILIO AMEZQUITA Jan 19, 2017 11:31
--- NOTE | 2017-01-19 11:52 | CONS ---
Date/Time of Note Date/Time of Note DATE: 01/19/17 TIME: 11:51 Consult Date/Type/Reason Admit Date/Time Jan 10, 2017 at 22:38 Type of Consultation: Pulmonary Ordering Provider: MAURILIO AMEZQUITA Subjective Comfortable this morning. No new events. Objective Vital Signs Date Time Temp Pulse Resp B/P Pulse Ox O2 Delivery O2 Flow Rate FiO2 01/19/17 08:21 112 01/19/17 08:03 98.5 18 141/76 93 01/19/17 01:51 21 01/18/17 16:00 Room Air 01/18/17 08:13 2.0 Intake and Output 01/18/17 01/18/17 01/19/17 15:00 23:00 07:00 Intake Total 250 ml 2780 ml 1000 ml Output Total 2920 ml 500 ml Balance 250 ml -140 ml 500 ml Exam GENERAL: Moderately obese lady comfortable at rest no acute distress VITAL SIGNS: per chart NECK: Supple. No JVD or lymphadenopathy. CARDIAC EXAM: S1, S2. No added sounds or murmurs. CHEST: clear bilaterally, No added sounds, rales or wheezes ABDOMEN: Soft, nontender. No guarding or rebound. EXTREMITIES: No cyanosis, clubbing or edema. NEUROLOGIC: Generalized weakness. No focal deficits. Results/Medications Result Diagram: 01/18/1792501/18/17925 Results 24 hrs Laboratory Tests Test 01/18/17 12:16 01/18/17 17:52 01/18/17 20:56 01/19/17 01:29 Bedside Glucose 167 188 210 225 H Test 01/19/17 05:45 01/19/17 08:19 Bedside Glucose 161 173 Medications Current Medications Acetaminophen (Tylenol Tab) 650 mg Q6H PRN PO PAIN LEVEL 1-3 OR FEVER Last administered on 01/18/17 01:51; Admin Dose 650 MG; Start 01/11/17 at 00:00 Docusate Sodium (Colace) 100 mg Q12H PRN PO CONSTIPATION; Start 01/11/17 at 00 :00 Bisacodyl (Dulcolax) 5 mg DAILY PRN PO CONSTIPATION; Start 01/11/17 at 00:00 Famotidine (Pepcid) 20 mg Q12 PO Last administered on 01/19/17 08:24; Admin Dose 20 MG; Start 01/11/17 at 00:00 Enoxaparin Sodium (Lovenox) 100 mg Q12 SC Last administered on 01/19/17 08:22 ; Admin Dose 100 MG; Start 01/11/17 at 00:00 Lorazepam (Ativan) 1 mg Q4H PRN IV AGITATION/ANXIETY Last administered on 01/16 02:34; Admin Dose 1 MG; Start 01/11/17 at 01:30 Aspirin (Halfprin) 81 mg DAILY PO Last administered on 01/19/17 08:23; Admin Dose 81 MG; Start 01/11/17 at 09:00 Miscellaneous Information 1 ea NOTE XX ; Start 01/11/17 at 02:00 Glucose (Glutose) 15 gm Q15M PRN PO DECREASED GLUCOSE; Start 01/11/17 at 02:00 Glucose (Glutose) 22.5 gm Q15M PRN PO DECREASED GLUCOSE; Start 01/11/17 at 02: 00 Dextrose (D50w Syringe) 25 ml Q15M PRN IV DECREASED GLUCOSE Last administered on 01/15/17 05:38; Admin Dose 25 ML; Start 01/11/17 at 02:00 Dextrose (D50w Syringe) 50 ml Q15M PRN IV DECREASED GLUCOSE; Start 01/11/17 at 02:00 Glucagon (Glucagen) 1 mg Q15M PRN IM DECREASED GLUCOSE; Start 01/11/17 at 02: 00 Glucose (Glutose) 15 gm Q15M PRN BUCCAL DECREASED GLUCOSE; Start 01/11/17 at 02:00 Insulin Aspart (Adult SC Insulin - Mild Algorithm)... Q4 SC Last administered on 01/19/17 08:20; Admin Dose 1 UNIT; Start 01/12/17 at 09:00 Dobutamine HCl/ Dextrose 250 ml @ 7.748 mls/ hr TITRATE IV Last administered on 01/14/17 07:23; Admin Dose 12.396 MLS/HR; Start 01/12/17 at 12:30; Status Future Hold Amiodarone HCl (Cordarone) 200 mg TID PO Last administered on 01/19/17 08:24 ; Admin Dose 200 MG; Start 01/12/17 at 21:00 IV Flush (NS 10 ml) 10 ml PRN PRN IV IV PROTOCOL; Start 01/15/17 at 21:30 Lisinopril (Zestril) 2.5 mg DAILY PO Last administered on 01/19/17 08:25; Admin Dose 2.5 MG; Start 01/17/17 at 09:00 Furosemide (Lasix) 40 mg DAILY IV Last administered on 01/19/17 08:25; Admin Dose 40 MG; Start 01/18/17 at 09:00 Metoprolol Succinate (Toprol Xl) 25 mg BID PO Last administered on 01/19/17 08:24; Admin Dose 25 MG; Start 01/17/17 at 21:00 Miscellaneous Information Patients own medicat... BID@10,16 XX ; Start at 10:00 Vancomycin HCl (Vancocin) 250 ml @ 125 mls/hr Q12H IVPB Last administered on 01/19/17 00:33; Admin Dose 125 MLS/HR; Start 01/18/17 at 12:00 Digoxin (Digoxin) 0.125 mg DAILY@13 PO ; Start 01/19/17 at 13:00 Ondansetron HCl (Zofran Inj) 4 mg Q6H PRN IV NAUSEA AND/OR VOMITING Last administered on 01/19/17 08:53; Admin Dose 4 MG; Start 01/19/17 at 09:00 Assessment/Plan Chief Complaint/Hosp Course IMP: 1. Status post shock, likely component of cardiogenic and septic now resolved 2. Respiratory failure secondary to her underlying cardiomyopathy and volume overload. Stable nasal cannula 3. Atrial flutter with variable response. 4. Congestive heart failure. 5. Acute kidney injury, likely cardiorenal. 6. Substance abuse with methamphetamines. 7. Diabetes. 8. Fluctuating encephalopathy RECOMMENDATIONS: 1. Submental O2 as needed. 2. Physical therapy encourage out of bed 3. Aspiration precautions DC planning. Problems: KELLY DEL CID [facility] Jan 19, 2017 11:52
[2017-01-19] MEDS: DIGOXIN 0.125 MG TAB PO SCH (12:58)
--- NOTE | 2017-01-19 13:03 | PN ---
Date/Time of Note Date/Time of Note DATE: 01/18/17 TIME: 12:56 Assessment/Plan VTE Prophylaxis VTE Prophylaxis Intervention: LMWH Assessment/Plan Chief Complaint/Hosp Course 1. Acute respiratory failure secondary to acute on chronic systolic CHF exacerbation-extubated Now tolerating nasal cannula Continue diuresis Continues to require supplemental O2 2. Paroxysmal A-fib with RVR in the setting of methamphetamine use-rate still elevated Continue digoxin and metoprolol Continue amiodarone and Lovenox for stroke prophylaxis Cardiology following 3. Cardiogenic shock-resolved 4. Chronic Moderate-severe MR 5. DIANNA-resolved 6. Acute encephalopathy possibly secondary to methamphetamine withdrawal and hospital-acquired delirium-labile mentation Patient does have history of hospital acquired delirium during last hospitalization, patient appears to once again be somewhat delirious CT head and MRI show no acute findings Neurology consultation appreciated 7. Bacteremia secondary to staph Continue vancomycin ID consultation appreciated Echo shows no vegetations Follow-up on repeat blood cultures Prophylaxis: Lovenox Problems: Subjective 24 Hr Interval Summary Free Text/Dictation Late entry for January 18, 2017 Constitutional: no complaints Exam/Review of Systems Vital Signs Vitals Vital Signs Date Time Temp Pulse Resp B/P Pulse Ox O2 Delivery O2 Flow Rate FiO2 01/19/17 12:25 128 01/19/17 12:00 98.6 18 143/79 95 01/19/17 01:51 21 01/18/17 16:00 Room Air 01/18/17 08:13 2.0 Intake and Output 01/18/17 01/18/17 01/19/17 15:00 23:00 07:00 Intake Total 250 ml 2780 ml 1000 ml Output Total 2920 ml 500 ml Balance 250 ml -140 ml 500 ml Exam Constitutional: alert Respiratory: clear to auscultation Cardiovascular: regular rate and rhythm Gastrointestinal: soft, No distended Musculoskeletal: nl extremities to inspection Results Result Diagram: 01/18/17 0901/18/17 09 Results 24 hrs Laboratory Tests Test 01/18/17 17:52 01/18/17 20:56 01/19/17 01:29 01/19/17 05:45 Bedside Glucose 188 210 225 H 161 Test 01/19/17 08:19 01/19/17 12:15 Bedside Glucose 173 137 Medications Medications Current Medications Acetaminophen (Tylenol Tab) 650 mg Q6H PRN PO PAIN LEVEL 1-3 OR FEVER Last administered on 01/18/17 01:51; Admin Dose 650 MG; Start 01/11/17 at 00:00 Docusate Sodium (Colace) 100 mg Q12H PRN PO CONSTIPATION; Start 01/11/17 at 00 :00 Bisacodyl (Dulcolax) 5 mg DAILY PRN PO CONSTIPATION; Start 01/11/17 at 00:00 Famotidine (Pepcid) 20 mg Q12 PO Last administered on 01/19/17 08:24; Admin Dose 20 MG; Start 01/11/17 at 00:00 Enoxaparin Sodium (Lovenox) 100 mg Q12 SC Last administered on 01/19/17 08:22 ; Admin Dose 100 MG; Start 01/11/17 at 00:00 Lorazepam (Ativan) 1 mg Q4H PRN IV AGITATION/ANXIETY Last administered on 01/16 02:34; Admin Dose 1 MG; Start 01/11/17 at 01:30 Aspirin (Halfprin) 81 mg DAILY PO Last administered on 01/19/17 08:23; Admin Dose 81 MG; Start 01/11/17 at 09:00 Miscellaneous Information 1 ea NOTE XX ; Start 01/11/17 at 02:00 Glucose (Glutose) 15 gm Q15M PRN PO DECREASED GLUCOSE; Start 01/11/17 at 02:00 Glucose (Glutose) 22.5 gm Q15M PRN PO DECREASED GLUCOSE; Start 01/11/17 at 02: 00 Dextrose (D50w Syringe) 25 ml Q15M PRN IV DECREASED GLUCOSE Last administered on 01/15/17 05:38; Admin Dose 25 ML; Start 01/11/17 at 02:00 Dextrose (D50w Syringe) 50 ml Q15M PRN IV DECREASED GLUCOSE; Start 01/11/17 at 02:00 Glucagon (Glucagen) 1 mg Q15M PRN IM DECREASED GLUCOSE; Start 01/11/17 at 02: 00 Glucose (Glutose) 15 gm Q15M PRN BUCCAL DECREASED GLUCOSE; Start 01/11/17 at 02:00 Insulin Aspart (Adult SC Insulin - Mild Algorithm)... Q4 SC Last administered on 01/19/17 08:20; Admin Dose 1 UNIT; Start 01/12/17 at 09:00 Dobutamine HCl/ Dextrose 250 ml @ 7.748 mls/ hr TITRATE IV Last administered on 01/14/17 07:23; Admin Dose 12.396 MLS/HR; Start 01/12/17 at 12:30; Status Future Hold Amiodarone HCl (Cordarone) 200 mg TID PO Last administered on 01/19/17 08:24 ; Admin Dose 200 MG; Start 01/12/17 at 21:00 IV Flush (NS 10 ml) 10 ml PRN PRN IV IV PROTOCOL; Start 01/15/17 at 21:30 Lisinopril (Zestril) 2.5 mg DAILY PO Last administered on 01/19/17 08:25; Admin Dose 2.5 MG; Start 01/17/17 at 09:00 Furosemide (Lasix) 40 mg DAILY IV Last administered on 01/19/17 08:25; Admin Dose 40 MG; Start 01/18/17 at 09:00 Metoprolol Succinate (Toprol Xl) 25 mg BID PO Last administered on 01/19/17 08:24; Admin Dose 25 MG; Start 01/17/17 at 21:00 Miscellaneous Information Patients own medicat... BID@10,16 XX ; Start at 10:00 Vancomycin HCl (Vancocin) 250 ml @ 125 mls/hr Q12H IVPB Last administered on 01/19/17 00:33; Admin Dose 125 MLS/HR; Start 01/18/17 at 12:00 Digoxin (Digoxin) 0.125 mg DAILY@13 PO ; Start 01/19/17 at 13:00 Ondansetron HCl (Zofran Inj) 4 mg Q6H PRN IV NAUSEA AND/OR VOMITING Last administered on 01/19/17 08:53; Admin Dose 4 MG; Start 01/19/17 at 09:00 MAURILIO AMEZQUITA Jan 19, 2017 13:03
--- NOTE | 2017-01-19 17:44 | CONS ---
Date/Time of Note Date/Time of Note DATE: 01/19/17 TIME: 17:37 Assessment/Plan Assessment/Plan Chief Complaint/Hosp Course ID PROGRESS NOTE CURRENT ABX: TOTAL ABX DAY # 7=> Vanco IV s/p Zosyn 24H INTERVAL SUMMARY * OOB-> sitting on toilet c/o diarrhea * MICROBIOLOGY: Blood cultures since admission grew Corynebacterium species and coagulase-negative staph species. Urine culture negative. * INDWELLINGS: Right upper extremity PICC line. * DIAGNOSTICS: Chest x-ray revealed pulmonary edema with mild left basilar atelectasis and small left pleural effusion. Physical Exam Physical Exam Constitutional: VSS, NAD, obese F, awake, alert, responsive HEENT: Unremarkable Neck: Supple, full ROM Respiratory: Equal chest rise bilaterally, without dyspnea on observation, room air Cardiovascular: nl pulses, regular rate and rhythm Gastrointestinal: Soft, NT Extremities: Warm, no c/c/e ID ASSESSMENT 56 yo F admit with: 1. Status post shock, s/p respiratory failure requiring intubation/ventilation => RESOLVED * O2 via NC * No fevers, VSS 2. Coagulase-negative staph bacteremia, 2D echocardiogram revealed no vegetations. 3. Severe cardiomyopathy with ejection fraction 15-20%. 4. Resolving encephalopathy. 5. Status post rapid atrial flutter, atrial fibrillation. 6. Diabetes. 7. History of substance abuse. 8. Diarrhea => r/o C.Diff INVASIVES: PICC ABX ALLERGIES: KNDA CURRENT ABX: TOTAL ABX DAY # 7=> Vanco IV s/p Zosyn ID RECOMMENDATIONS 1. She has diarrhea, ABX associated. CDiff toxin ordered 2. Anticipate DC Vanco IV soon . Problems: Consultation Date/Type/Reason Admit Date/Time Jan 10, 2017 at 22:38 Initial Consult Date 01/16/17 Type of Consultation: ID Referring Provider: MAURILIO AMEZQUITA Exam/Review of Systems Vital Signs Vitals Vital Signs Date Time Temp Pulse Resp B/P Pulse Ox O2 Delivery O2 Flow Rate FiO2 01/19/17 16:22 120 01/19/17 15:30 98.0 18 112/87 92 01/19/17 14:26 2.0 01/19/17 01:51 21 01/18/17 16:00 Room Air Intake and Output 10/01/18/17 01/19/17 15:00 23:00 07:00 Intake Total 250 ml 2780 ml 1000 ml Output Total 2920 ml 500 ml Balance 250 ml -140 ml 500 ml Results Result Diagram: 01/18/17 0926 01/18/17 0926 Results 24 hrs Laboratory Tests Test 01/18/17 17:52 01/18/17 20:56 01/19/17 01:29 01/19/17 05:45 Bedside Glucose 188 210 225 H 161 Test 01/19/17 08:19 01/19/17 12:15 Bedside Glucose 173 137 Medications Medications Current Medications Acetaminophen (Tylenol Tab) 650 mg Q6H PRN PO PAIN LEVEL 1-3 OR FEVER Last administered on 01/18/17 01:51; Admin Dose 650 MG; Start 01/11/17 at 00:00 Docusate Sodium (Colace) 100 mg Q12H PRN PO CONSTIPATION; Start 01/11/17 at 00 :00 Bisacodyl (Dulcolax) 5 mg DAILY PRN PO CONSTIPATION; Start 01/11/17 at 00:00 Famotidine (Pepcid) 20 mg Q12 PO Last administered on 01/19/17 08:24; Admin Dose 20 MG; Start 01/11/17 at 00:00 Lorazepam (Ativan) 1 mg Q4H PRN IV AGITATION/ANXIETY Last administered on 01/16 02:34; Admin Dose 1 MG; Start 01/11/17 at 01:30 Aspirin (Halfprin) 81 mg DAILY PO Last administered on 01/19/17 08:23; Admin Dose 81 MG; Start 01/11/17 at 09:00 Miscellaneous Information 1 ea NOTE XX ; Start 01/11/17 at 02:00 Glucose (Glutose) 15 gm Q15M PRN PO DECREASED GLUCOSE; Start 01/11/17 at 02:00 Glucose (Glutose) 22.5 gm Q15M PRN PO DECREASED GLUCOSE; Start 01/11/17 at 02: 00 Dextrose (D50w Syringe) 25 ml Q15M PRN IV DECREASED GLUCOSE Last administered on 01/15/17 05:38; Admin Dose 25 ML; Start 01/11/17 at 02:00 Dextrose (D50w Syringe) 50 ml Q15M PRN IV DECREASED GLUCOSE; Start 01/11/17 at 02:00 Glucagon (Glucagen) 1 mg Q15M PRN IM DECREASED GLUCOSE; Start 01/11/17 at 02: 00 Glucose (Glutose) 15 gm Q15M PRN BUCCAL DECREASED GLUCOSE; Start 01/11/17 at 02:00 Insulin Aspart (Adult SC Insulin - Mild Algorithm)... Q4 SC Last administered on 01/19/17 08:20; Admin Dose 1 UNIT; Start 01/12/17 at 09:00 Dobutamine HCl/ Dextrose 250 ml @ 7.748 mls/ hr TITRATE IV Last administered on 01/14/17 07:23; Admin Dose 12.396 MLS/HR; Start 01/12/17 at 12:30; Status Future Hold Amiodarone HCl (Cordarone) 200 mg TID PO Last administered on 01/19/17 12:57 ; Admin Dose 200 MG; Start 01/12/17 at 21:00 IV Flush (NS 10 ml) 10 ml PRN PRN IV IV PROTOCOL; Start 01/15/17 at 21:30 Lisinopril (Zestril) 2.5 mg DAILY PO Last administered on 01/19/17 08:25; Admin Dose 2.5 MG; Start 01/17/17 at 09:00 Furosemide (Lasix) 40 mg DAILY IV Last administered on 01/19/17 08:25; Admin Dose 40 MG; Start 01/18/17 at 09:00 Metoprolol Succinate (Toprol Xl) 25 mg BID PO Last administered on 01/19/17 08:24; Admin Dose 25 MG; Start 01/17/17 at 21:00 Miscellaneous Information Patients own medicat... BID@10,16 XX ; Start at 10:00 Vancomycin HCl (Vancocin) 250 ml @ 125 mls/hr Q12H IVPB Last administered on 01/19/17 12:55; Admin Dose 125 MLS/HR; Start 01/18/17 at 12:00 Digoxin (Digoxin) 0.125 mg DAILY@13 PO Last administered on 01/19/17 12:58; Admin Dose 0.125 MG; Start 01/19/17 at 13:00 Ondansetron HCl (Zofran Inj) 4 mg Q6H PRN IV NAUSEA AND/OR VOMITING Last administered on 01/19/17 08:53; Admin Dose 4 MG; Start 01/19/17 at 09:00 Apixaban (Eliquis) 5 mg BID PO ; Start 01/19/17 at 21:00 MARBELLA STAFFORD NP Jan 19, 2017 17:44
[2017-01-19] MEDS: APIXABAN 5 MG TABLET PO SCH (21:56)
[2017-01-19] MEDS: GUAIFENESIN/CODEINE 5ML CUP PO PRN (22:55)
[2017-01-20] VITALS (13 sets, daily range): BP systolic 97–174; BP diastolic 60–117; PULSE 95–108; RESP 17–18
[2017-01-20] MEDS: VANCOMYCIN 1 GM in NS 250 ML IVPB SCH ×2 (00:47→13:25)
[2017-01-20] MEDS: Insulin NOVOLOG SS MILD Algorithm (NPO/TPN/ENTERAL FEEDS) SC SCH ×6 (00:48→20:17)
[2017-01-20] MEDS: ALBUTEROL/IPRATROPIUM (NEB) 3 ML AMP HHN SCH ×4 (01:26→19:50)
[2017-01-20] MEDS: GUAIFENESIN/CODEINE 5ML CUP PO PRN ×3 (05:27→18:22)
[2017-01-20 06:24] LABS: BASOPHILS % 0.4 % (0.0-2.0); EOSINOPHILS # 0.4 10^3/ul (0.0-0.5); EOSINOPHILS % 4.7 % (0.0-7.0); HEMATOCRIT 37.7 % (37.0-47.0); HEMOGLOBIN 11.6 g/dl (12.0-16.0); LYMPHOCYTES # 1.2 10^3/ul (0.8-2.9); LYMPHOCYTES % 14.3 % (15.0-51.0); MEAN CORPUSCULAR HEMOGLOBIN 27.9 pg (29.0-33.0); MEAN CORPUSCULAR HGB CONC 30.8 g/dl (32.0-37.0); MEAN CORPUSCULAR VOLUME 90.6 fl (82.0-101.0); MEAN PLATELET VOLUME 10.6 fl (7.4-10.4); MONOCYTE # 0.5 10^3/ul (0.3-0.9); MONOCYTES % 5.9 % (0.0-11.0); NEUTROPHILS % 74.3 % (39.0-77.0); PLATELET COUNT 154 10^3/UL (140-415); RED BLOOD COUNT 4.16 10^6/ul (4.20-5.40); RED CELL DISTRIBUTION WIDTH 19.9 % (11.5-14.5); WHITE BLOOD COUNT 8.1 10^3/ul (4.8-10.8)
[2017-01-20 07:02] LABS: CALCIUM 8.9 mg/dl (8.4-10.2); CREATININE 0.87 mg/dl (0.44-1.00); MAGNESIUM 1.5 mg/dl (1.7-2.5)
[2017-01-20] MEDS: FUROSEMIDE 40 MG INJ IV SCH (08:19)
[2017-01-20] MEDS: ASPIRIN (EC) 81 MG TAB PO SCH (08:20)
[2017-01-20] MEDS: FAMOTIDINE 20 MG TAB PO SCH ×2 (08:20→20:11)
[2017-01-20] MEDS: APIXABAN 5 MG TABLET PO SCH ×2 (08:20→20:11)
[2017-01-20] MEDS: LISINOPRIL 5 MG TAB PO SCH (08:21)
[2017-01-20] MEDS: AMIODARONE 200 MG TAB PO SCH ×2 (08:21→20:12)
[2017-01-20] MEDS: METOPROLOL (XL) 25 MG TAB PO SCH (08:21)
--- NOTE | 2017-01-20 10:28 | CONS ---
Date/Time of Note Date/Time of Note DATE: 01/20/17 TIME: 10: Consult Date/Type/Reason Admit Date/Time Jan 10, 2017 at 22:38 Type of Consultation: Pulmonary Ordering Provider: MAURILIO AMEZQUITA Subjective Sleeping this morning. No events overnight per staff. Objective Vital Signs Date Time Temp Pulse Resp B/P Pulse Ox O2 Delivery O2 Flow Rate FiO2 01/20/17 08:35 98.0 65 18 174/117 99 01/19/17 20:32 21 01/19/17 14:26 2.0 01/18/17 16:00 Room Air Intake and Output 01/19/17 01/19/17 01/20/17 15:00 23:00 07:00 Intake Total 900 ml 500 ml Output Total 1800 ml 600 ml Balance -900 ml -100 ml Exam GENERAL: Moderately obese lady comfortable at rest no acute distress VITAL SIGNS: per chart NECK: Supple. No JVD or lymphadenopathy. CARDIAC EXAM: S1, S2. No added sounds or murmurs. CHEST: Diminished air entry both lung bases. ABDOMEN: Soft, nontender. No guarding or rebound. EXTREMITIES: No cyanosis, clubbing or edema. NEUROLOGIC: Generalized weakness. No focal deficits. Results/Medications Result Diagram: 01/20/17 0550 01/20/17 0530 Results 24 hrs Laboratory Tests Test 01/19/17 12:15 01/19/17 17:38 01/19/17 21:53 01/20/17 00:47 Bedside Glucose 137 180 179 136 Test 01/20/17 05:28 01/20/17 05:30 01/20/17 05:50 01/20/17 08:17 Bedside Glucose 200 171 Sodium Level 137 Potassium Level 4.0 Chloride Level 95 L Carbon Dioxide Level 35 H Anion Gap 11 Blood Urea Nitrogen 14 Creatinine 0.87 Glucose Level 207 Calcium Level 8.9 Magnesium Level 1.5 L White Blood Count 8.1 # Red Blood Count 4.16 L Hemoglobin 11.6 L Hematocrit 37.7 Mean Corpuscular Volume 90.6 Mean Corpuscular Hemoglobin 27.9 L Mean Corpuscular Hemoglobin Concent 30.8 L Red Cell Distribution Width 19.9 H Platelet Count 154 Mean Platelet Volume 10.6 H Neutrophils % 74.3 Lymphocytes % 14.3 L Monocytes % 5.9 Eosinophils % 4.7 Basophils % 0.4 Nucleated Red Blood Cells % 0.0 Neutrophils # 6.0 Lymphocytes # 1.2 Monocytes # 0.5 Eosinophils # 0.4 Basophils # 0.0 Nucleated Red Blood Cells # 0.0 Medications Current Medications Acetaminophen (Tylenol Tab) 650 mg Q6H PRN PO PAIN LEVEL 1-3 OR FEVER Last administered on 01/18/17 01:51; Admin Dose 650 MG; Start 01/11/17 at 00:00 Docusate Sodium (Colace) 100 mg Q12H PRN PO CONSTIPATION; Start 01/11/17 at 00 :00 Bisacodyl (Dulcolax) 5 mg DAILY PRN PO CONSTIPATION; Start 01/11/17 at 00:00 Famotidine (Pepcid) 20 mg Q12 PO Last administered on 01/20/17 08:20; Admin Dose 20 MG; Start 01/11/17 at 00:00 Lorazepam (Ativan) 1 mg Q4H PRN IV AGITATION/ANXIETY Last administered on 01/16 02:34; Admin Dose 1 MG; Start 01/11/17 at 01:30 Aspirin (Halfprin) 81 mg DAILY PO Last administered on 01/20/17 08:20; Admin Dose 81 MG; Start 01/11/17 at 09:00 Miscellaneous Information 1 ea NOTE XX ; Start 01/11/17 at 02:00 Glucose (Glutose) 15 gm Q15M PRN PO DECREASED GLUCOSE; Start 01/11/17 at 02:00 Glucose (Glutose) 22.5 gm Q15M PRN PO DECREASED GLUCOSE; Start 01/11/17 at 02: 00 Dextrose (D50w Syringe) 25 ml Q15M PRN IV DECREASED GLUCOSE Last administered on 01/15/17 05:38; Admin Dose 25 ML; Start 01/11/17 at 02:00 Dextrose (D50w Syringe) 50 ml Q15M PRN IV DECREASED GLUCOSE; Start 01/11/17 at 02:00 Glucagon (Glucagen) 1 mg Q15M PRN IM DECREASED GLUCOSE; Start 01/11/17 at 02: 00 Glucose (Glutose) 15 gm Q15M PRN BUCCAL DECREASED GLUCOSE; Start 01/11/17 at 02:00 Insulin Aspart (Adult SC Insulin - Mild Algorithm)... Q4 SC Last administered on 01/20/17 08:19; Admin Dose 1 UNIT; Start 01/12/17 at 09:00 Dobutamine HCl/ Dextrose 250 ml @ 7.748 mls/ hr TITRATE IV Last administered on 01/14/17 07:23; Admin Dose 12.396 MLS/HR; Start 01/12/17 at 12:30; Status Future Hold Amiodarone HCl (Cordarone) 200 mg TID PO Last administered on 01/20/17 08:21 ; Admin Dose 200 MG; Start 01/12/17 at 21:00 IV Flush (NS 10 ml) 10 ml PRN PRN IV IV PROTOCOL; Start 01/15/17 at 21:30 Lisinopril (Zestril) 2.5 mg DAILY PO Last administered on 01/20/17 08:21; Admin Dose 2.5 MG; Start 01/17/17 at 09:00 Furosemide (Lasix) 40 mg DAILY IV Last administered on 01/20/17 08:19; Admin Dose 40 MG; Start 01/18/17 at 09:00 Metoprolol Succinate (Toprol Xl) 25 mg BID PO Last administered on 01/20/17 08:21; Admin Dose 25 MG; Start 01/17/17 at 21:00 Miscellaneous Information Patients own medicat... BID@10,16 XX ; Start at 10:00 Vancomycin HCl (Vancocin) 250 ml @ 125 mls/hr Q12H IVPB Last administered on 01/20/17 00:47; Admin Dose 125 MLS/HR; Start 01/18/17 at 12:00 Digoxin (Digoxin) 0.125 mg DAILY@13 PO Last administered on 01/19/17 12:58; Admin Dose 0.125 MG; Start 01/19/17 at 13:00 Ondansetron HCl (Zofran Inj) 4 mg Q6H PRN IV NAUSEA AND/OR VOMITING Last administered on 01/19/17 08:53; Admin Dose 4 MG; Start 01/19/17 at 09:00 Apixaban (Eliquis) 5 mg BID PO Last administered on 01/20/17 08:20; Admin Dose 5 MG; Start 01/19/17 at 21:00 Guaifenesin/ Codeine Phosphate (Robitussin Ac Liquid Cup) 10 ml Q4H PRN PO COUGH Last administered on 01/20/17t 05:27; Admin Dose 10 ML; Start 01/19/17 at 22:00 Assessment/Plan Chief Complaint/Hosp Course IMP: 1. Status post shock, likely component of cardiogenic and septic now resolved 2. Respiratory failure secondary to her underlying cardiomyopathy and volume overload. Stable nasal cannula 3. Atrial flutter with variable response. 4. Congestive heart failure. 5. Acute kidney injury, likely cardiorenal. 6. Substance abuse with methamphetamines. 7. Diabetes. 8. Fluctuating encephalopathy RECOMMENDATIONS: 1. Submental O2 as needed. 2. Physical therapy encourage out of bed 3. Aspiration precautions DC planning. Problems: KELLY DEL CID MD, [facility] Jan 20, 2017 10:27
--- NOTE | 2017-01-20 13:02 | CONS ---
Date/Time of Note Date/Time of Note DATE: 01/20/17 TIME: 13:01 Assessment/Plan Assessment/Plan Additional Assessment/Plan Atrial flutter with RVR Cardiomyopathy Acute on chronic congestive heart failure Substance abuse including methamphetamines. CVA Diabetes mellitus. Chronic obstructive pulmonary disease tele shows tail fibrillation with RVR Continue amiodarone and digoxin Continue Metoprolol Continue lisinopril Continue ASA Continue Lasix Continue antibiotics Continue Eliquis and stopped Lovenox Consultation Date/Type/Reason Admit Date/Time Jan 10, 2017 at 22:38 Initial Consult Date 01/16/17 Type of Consultation: Pulmonary Referring Provider: MAURILIO AMEZQUITA Exam/Review of Systems Vital Signs Vitals Vital Signs Date Time Temp Pulse Resp B/P Pulse Ox O2 Delivery O2 Flow Rate FiO2 01/20/17 12:55 95 01/20/17 12:34 2.0 01/20/17 12:13 98.0 18 126/60 94 01/19/17 20:32 21 01/18/17 16:00 Room Air Intake and Output 01/19/17 01/19/17 01/20/17 15:00 23:00 07:00 Intake Total 900 ml 500 ml Output Total 1800 ml 600 ml Balance -900 ml -100 ml Exam Constitutional: alert Head: atraumatic, normocephalic Neck: non-tender, supple Respiratory: clear to auscultation Cardiovascular: irregular rhythm Gastrointestinal: nl liver, spleen, non-tender, soft Extremities: normal pulses Results Result Diagram: 01/20/17 0550 01/20/17 0530 Results 24 hrs Laboratory Tests Test 01/19/17 17:38 01/19/17 21:53 01/20/17 00:47 01/20/17 05:28 Bedside Glucose 180 179 136 200 Test 01/20/17 05:30 01/20/17 05:50 01/20/17 08:17 01/20/17 12:01 Sodium Level 137 Potassium Level 4.0 Chloride Level 95 L Carbon Dioxide Level 35 H Anion Gap 11 Blood Urea Nitrogen 14 Creatinine 0.87 Glucose Level 207 Calcium Level 8.9 Magnesium Level 1.5 L White Blood Count 8.1 # Red Blood Count 4.16 L Hemoglobin 11.6 L Hematocrit 37.7 Mean Corpuscular Volume 90.6 Mean Corpuscular Hemoglobin 27.9 L Mean Corpuscular Hemoglobin Concent 30.8 L Red Cell Distribution Width 19.9 H Platelet Count 154 Mean Platelet Volume 10.6 H Neutrophils % 74.3 Lymphocytes % 14.3 L Monocytes % 5.9 Eosinophils % 4.7 Basophils % 0.4 Nucleated Red Blood Cells % 0.0 Neutrophils # 6.0 Lymphocytes # 1.2 Monocytes # 0.5 Eosinophils # 0.4 Basophils # 0.0 Nucleated Red Blood Cells # 0.0 Bedside Glucose 171 198 Medications Medications Current Medications Acetaminophen (Tylenol Tab) 650 mg Q6H PRN PO PAIN LEVEL 1-3 OR FEVER Last administered on 01/18/17 01:51; Admin Dose 650 MG; Start 01/11/17 at 00:00 Docusate Sodium (Colace) 100 mg Q12H PRN PO CONSTIPATION; Start 01/11/17 at 00 :00 Bisacodyl (Dulcolax) 5 mg DAILY PRN PO CONSTIPATION; Start 01/11/17 at 00:00 Famotidine (Pepcid) 20 mg Q12 PO Last administered on 01/20/17 08:20; Admin Dose 20 MG; Start 01/11/17 at 00:00 Lorazepam (Ativan) 1 mg Q4H PRN IV AGITATION/ANXIETY Last administered on 01/16 02:34; Admin Dose 1 MG; Start 01/11/17 at 01:30 Aspirin (Halfprin) 81 mg DAILY PO Last administered on 01/20/17 08:20; Admin Dose 81 MG; Start 01/11/17 at 09:00 Miscellaneous Information 1 ea NOTE XX ; Start 01/11/17 at 02:00 Glucose (Glutose) 15 gm Q15M PRN PO DECREASED GLUCOSE; Start 01/11/17 at 02:00 Glucose (Glutose) 22.5 gm Q15M PRN PO DECREASED GLUCOSE; Start 01/11/17 at 02: 00 Dextrose (D50w Syringe) 25 ml Q15M PRN IV DECREASED GLUCOSE Last administered on 01/15/17 05:38; Admin Dose 25 ML; Start 01/11/17 at 02:00 Dextrose (D50w Syringe) 50 ml Q15M PRN IV DECREASED GLUCOSE; Start 01/11/17 at 02:00 Glucagon (Glucagen) 1 mg Q15M PRN IM DECREASED GLUCOSE; Start 01/11/17 at 02: 00 Glucose (Glutose) 15 gm Q15M PRN BUCCAL DECREASED GLUCOSE; Start 01/11/17 at 02:00 Insulin Aspart (Adult SC Insulin - Mild Algorithm)... Q4 SC Last administered on 01/20/17 12:04; Admin Dose 2 UNIT; Start 01/12/17 at 09:00 Dobutamine HCl/ Dextrose 250 ml @ 7.748 mls/ hr TITRATE IV Last administered on 01/14/17 07:23; Admin Dose 12.396 MLS/HR; Start 01/12/17 at 12:30; Status Future Hold Amiodarone HCl (Cordarone) 200 mg TID PO Last administered on 01/20/17 08:21 ; Admin Dose 200 MG; Start 01/12/17 at 21:00 IV Flush (NS 10 ml) 10 ml PRN PRN IV IV PROTOCOL; Start 01/15/17 at 21:30 Lisinopril (Zestril) 2.5 mg DAILY PO Last administered on 01/20/17 08:21; Admin Dose 2.5 MG; Start 01/17/17 at 09:00 Furosemide (Lasix) 40 mg DAILY IV Last administered on 01/20/17 08:19; Admin Dose 40 MG; Start 01/18/17 at 09:00 Metoprolol Succinate (Toprol Xl) 25 mg BID PO Last administered on 01/20/17 08:21; Admin Dose 25 MG; Start 01/17/17 at 21:00 Miscellaneous Information Patients own medicat... BID@10,16 XX ; Start at 10:00 Vancomycin HCl (Vancocin) 250 ml @ 125 mls/hr Q12H IVPB Last administered on 01/20/17 00:47; Admin Dose 125 MLS/HR; Start 01/18/17 at 12:00 Digoxin (Digoxin) 0.125 mg DAILY@13 PO Last administered on 01/19/17 12:58; Admin Dose 0.125 MG; Start 01/19/17 at 13:00 Ondansetron HCl (Zofran Inj) 4 mg Q6H PRN IV NAUSEA AND/OR VOMITING Last administered on 01/19/17 08:53; Admin Dose 4 MG; Start 01/19/17 at 09:00 Apixaban (Eliquis) 5 mg BID PO Last administered on 01/20/17 08:20; Admin Dose 5 MG; Start 01/19/17 at 21:00 Guaifenesin/ Codeine Phosphate (Robitussin Ac Liquid Cup) 10 ml Q4H PRN PO COUGH Last administered on 01/20/17 05:27; Admin Dose 10 ML; Start 01/19/17 at 22:00 ROCIO PEDRO M.D. Jan 20, 2017 13:02
[2017-01-20] MEDS: DIGOXIN 0.125 MG TAB PO SCH (13:30)
[2017-01-20] MEDS ORDERED: MAGNESIUM SULFATE 4 GM/100 ML 100 ML IVPB ONE (15:30)
[2017-01-20] MEDS: LORAZEPAM 2 MG INJ IV PRN (15:50)
--- NOTE | 2017-01-20 17:40 | CONS ---
Date/Time of Note Date/Time of Note DATE: 01/20/17 TIME: 17:38 Assessment/Plan Assessment/Plan Chief Complaint/Hosp Course ID PROGRESS NOTE CURRENT ABX: TOTAL ABX DAY # 8 => Vanco IV s/p Zosyn 24H INTERVAL SUMMARY * Lethargic, supplemental O2, complained of diarrhea -- C.Diff pending, wants to sleep * MICROBIOLOGY: Blood cultures since admission grew Corynebacterium species and coagulase-negative staph species. Urine culture negative. * INDWELLINGS: Right upper extremity PICC line. * DIAGNOSTICS: Chest x-ray revealed pulmonary edema with mild left basilar atelectasis and small left pleural effusion. Physical Exam Physical Exam Constitutional: VSS, NAD, obese F, awake, alert, responsive HEENT: Unremarkable Neck: Supple, full ROM Respiratory: Equal chest rise bilaterally, without dyspnea on observation, room air Cardiovascular: nl pulses, regular rate and rhythm Gastrointestinal: Soft, NT Extremities: Warm, no c/c/e ID ASSESSMENT 56 yo F admit with: 1. Status post shock, s/p respiratory failure requiring intubation/ventilation => RESOLVED * O2 via NC * No fevers, VSS 2. Coagulase-negative staph bacteremia, 2D echocardiogram revealed no vegetations. 3. Severe cardiomyopathy with ejection fraction 15-20%. 4. Resolving encephalopathy. 5. Status post rapid atrial flutter, atrial fibrillation. 6. Diabetes. 7. History of substance abuse. 8. Diarrhea => r/o C.Diff INVASIVES: PICC ABX ALLERGIES: KNDA CURRENT ABX: TOTAL ABX DAY # 8 => Vanco IV s/p Zosyn ID RECOMMENDATIONS 1. She has diarrhea, ABX associated. CDiff toxin in process => f/u tomorrow 2. Anticipate DC Vanco IV soon . Problems: Consultation Date/Type/Reason Admit Date/Time Jan 10, 2017 at 22:38 Initial Consult Date 01/16/17 Type of Consultation: ID Referring Provider: MAURILIO AMEZQUITA Exam/Review of Systems Vital Signs Vitals Vital Signs Date Time Temp Pulse Resp B/P Pulse Ox O2 Delivery O2 Flow Rate FiO2 01/20/17 16:36 98.7 100 18 120/77 94 01/19/17 20:32 21 01/19/17 14:26 2.0 01/18/17 16:00 Room Air Intake and Output 01/19/17 01/19/17 01/20/17 15:00 23:00 07:00 Intake Total 900 ml 500 ml Output Total 1800 ml 600 ml Balance -900 ml -100 ml Results Result Diagram: 01/20/17 0550 01/20/17 0530 Results 24 hrs Laboratory Tests Test 01/19/17 21:53 01/20/17 00:47 01/20/17 05:28 01/20/17 05:30 Bedside Glucose 179 136 200 Sodium Level 137 Potassium Level 4.0 Chloride Level 95 L Carbon Dioxide Level 35 H Anion Gap 11 Blood Urea Nitrogen 14 Creatinine 0.87 Glucose Level 207 Calcium Level 8.9 Magnesium Level 1.5 L Test 01/20/17 05:50 01/20/17 08:17 01/20/17 12:01 01/20/17 17:16 White Blood Count 8.1 # Red Blood Count 4.16 L Hemoglobin 11.6 L Hematocrit 37.7 Mean Corpuscular Volume 90.6 Mean Corpuscular Hemoglobin 27.9 L Mean Corpuscular Hemoglobin Concent 30.8 L Red Cell Distribution Width 19.9 H Platelet Count 154 Mean Platelet Volume 10.6 H Neutrophils % 74.3 Lymphocytes % 14.3 L Monocytes % 5.9 Eosinophils % 4.7 Basophils % 0.4 Nucleated Red Blood Cells % 0.0 Neutrophils # 6.0 Lymphocytes # 1.2 Monocytes # 0.5 Eosinophils # 0.4 Basophils # 0.0 Nucleated Red Blood Cells # 0.0 Bedside Glucose 171 198 170 Medications Medications Current Medications Acetaminophen (Tylenol Tab) 650 mg Q6H PRN PO PAIN LEVEL 1-3 OR FEVER Last administered on 01/18/17 01:51; Admin Dose 650 MG; Start 01/11/17 at 00:00 Docusate Sodium (Colace) 100 mg Q12H PRN PO CONSTIPATION; Start 01/11/17 at 00 :00 Bisacodyl (Dulcolax) 5 mg DAILY PRN PO CONSTIPATION; Start 01/11/17 at 00:00 Famotidine (Pepcid) 20 mg Q12 PO Last administered on 01/20/17 08:20; Admin Dose 20 MG; Start 01/11/17 at 00:00 Lorazepam (Ativan) 1 mg Q4H PRN IV AGITATION/ANXIETY Last administered on 01/20 15:50; Admin Dose 1 MG; Start 01/11/17 at 01:30 Aspirin (Halfprin) 81 mg DAILY PO Last administered on 01/20/17 08:20; Admin Dose 81 MG; Start 01/11/17 at 09:00 Miscellaneous Information 1 ea NOTE XX ; Start 01/11/17 at 02:00 Glucose (Glutose) 15 gm Q15M PRN PO DECREASED GLUCOSE; Start 01/11/17 at 02:00 Glucose (Glutose) 22.5 gm Q15M PRN PO DECREASED GLUCOSE; Start 01/11/17 at 02: 00 Dextrose (D50w Syringe) 25 ml Q15M PRN IV DECREASED GLUCOSE Last administered on 01/15/17 05:38; Admin Dose 25 ML; Start 01/11/17 at 02:00 Dextrose (D50w Syringe) 50 ml Q15M PRN IV DECREASED GLUCOSE; Start 01/11/17 at 02:00 Glucagon (Glucagen) 1 mg Q15M PRN IM DECREASED GLUCOSE; Start 01/11/17 at 02: 00 Glucose (Glutose) 15 gm Q15M PRN BUCCAL DECREASED GLUCOSE; Start 01/11/17 at 02:00 Insulin Aspart (Adult SC Insulin - Mild Algorithm)... Q4 SC Last administered on 01/20/17 17:20; Admin Dose 1 UNIT; Start 01/12/17 at 09:00 Dobutamine HCl/ Dextrose 250 ml @ 7.748 mls/ hr TITRATE IV Last administered on 01/14/17 07:23; Admin Dose 12.396 MLS/HR; Start 01/12/17 at 12:30; Status Future Hold IV Flush (NS 10 ml) 10 ml PRN PRN IV IV PROTOCOL; Start 01/15/17 at 21:30 Lisinopril (Zestril) 2.5 mg DAILY PO Last administered on 01/20/17 08:21; Admin Dose 2.5 MG; Start 01/17/17 at 09:00 Furosemide (Lasix) 40 mg DAILY IV Last administered on 01/20/17 08:19; Admin Dose 40 MG; Start 01/18/17 at 09:00 Miscellaneous Information Patients own medicat... BID@ XX ; Start at 10:00 Vancomycin HCl (Vancocin) 250 ml @ 125 mls/hr Q12H IVPB Last administered on 01/20/17 13:25; Admin Dose 125 MLS/HR; Start 01/18/17 at 12:00 Digoxin (Digoxin) 0.125 mg DAILY@13 PO Last administered on 01/20/17 13:30; Admin Dose 0.125 MG; Start 01/19/17 at 13:00 Ondansetron HCl (Zofran Inj) 4 mg Q6H PRN IV NAUSEA AND/OR VOMITING Last administered on 01/19/17 08:53; Admin Dose 4 MG; Start 01/19/17 at 09:00 Apixaban (Eliquis) 5 mg BID PO Last administered on 01/20/17 08:20; Admin Dose 5 MG; Start 01/19/17 at 21:00 Guaifenesin/ Codeine Phosphate (Robitussin Ac Liquid Cup) 10 ml Q4H PRN PO COUGH Last administered on 01/20/17 13:55; Admin Dose 10 ML; Start 01/19/17 at 22:00 Amiodarone HCl (Cordarone) 400 mg BID PO ; Start 01/20/17 at 21:00 Metoprolol Tartrate 100 mg 100 mg BID NGT ; Start 01/20/17 at 21:00 Magnesium Sulfate (Magnesium Sulfate 4 Gm/100 ml) 100 ml @ 25 mls/hr ONCE ONCE IVPB Last administered on 01/20/17 16:17; Admin Dose 25 MLS/HR; Start 01/20/17 at 15:30; Stop 01/20/17 at 19:29 Miscellaneous Information (*Rx Drug Level Order Reminder*) VANCOMYCIN TROUGH AT 2300 ONCE ONCE XX ; Start 01/20/17 at 23:00; Stop 01/20/17 at 23:01 MARBELLA STAFFORD NP Jan 20, 2017 17:40
--- NOTE | 2017-01-20 18:43 | PN ---
Date/Time of Note Date/Time of Note DATE: 01/20/17 TIME: 18:37 Assessment/Plan VTE Prophylaxis VTE Prophylaxis Intervention: LMWH Assessment/Plan Chief Complaint/Hosp Course 1. Acute respiratory failure secondary to acute on chronic systolic CHF exacerbation-extubated and now improved Patient now saturating well at room air Continue diuresis 2. Paroxysmal A-fib with RVR in the setting of methamphetamine use-rate still elevated Continue digoxin, metoprolol dose increased to 100 mg twice daily Continue amiodarone and Lovenox for stroke prophylaxis Cardiology following 3. Cardiogenic shock-resolved 4. Chronic Moderate-severe MR 5. DIANNA-resolved 6. Acute encephalopathy possibly secondary to methamphetamine withdrawal and hospital-acquired delirium-labile mentation Patient does have history of hospital acquired delirium during last hospitalization, patient appears to once again be somewhat delirious CT head and MRI show no acute findings Neurology consultation appreciated 7. Bacteremia secondary to staph Continue vancomycin ID consultation appreciated Echo shows no vegetations Repeat blood cultures now negative after 4 days Prophylaxis: Lovenox Discharge planning: Anticipate DC to home in the next 1-2 days when heart rate stabilizes, respiratory failure has not resolved Problems: Subjective 24 Hr Interval Summary Constitutional: disoriented Exam/Review of Systems Vital Signs Vitals Vital Signs Date Time Temp Pulse Resp B/P Pulse Ox O2 Delivery O2 Flow Rate FiO2 01/20/17 16:36 98.7 100 18 120/77 94 01/19/17 20:32 21 01/19/17 14:26 2.0 01/18/17 16:00 Room Air Intake and Output 01/19/17 01/19/17 01/20/17 15:00 23:00 07:00 Intake Total 900 ml 500 ml Output Total 1800 ml 600 ml Balance -900 ml -100 ml Exam Constitutional: alert Psych: confusion Respiratory: clear to auscultation Cardiovascular: irregular rhythm Gastrointestinal: soft, No distended Musculoskeletal: nl extremities to inspection Results Result Diagram: 01/20/17 0550 01/20/17 0530 Results 24 hrs Laboratory Tests Test 01/19/17 21:53 01/20/17 00:47 01/20/17 05:28 01/20/17 05:30 Bedside Glucose 179 136 200 Sodium Level 137 Potassium Level 4.0 Chloride Level 95 L Carbon Dioxide Level 35 H Anion Gap 11 Blood Urea Nitrogen 14 Creatinine 0.87 Glucose Level 207 Calcium Level 8.9 Magnesium Level 1.5 L Test 01/20/17 05:50 01/20/17 08:17 01/20/17 12:01 01/20/17 17:16 White Blood Count 8.1 # Red Blood Count 4.16 L Hemoglobin 11.6 L Hematocrit 37.7 Mean Corpuscular Volume 90.6 Mean Corpuscular Hemoglobin 27.9 L Mean Corpuscular Hemoglobin Concent 30.8 L Red Cell Distribution Width 19.9 H Platelet Count 154 Mean Platelet Volume 10.6 H Neutrophils % 74.3 Lymphocytes % 14.3 L Monocytes % 5.9 Eosinophils % 4.7 Basophils % 0.4 Nucleated Red Blood Cells % 0.0 Neutrophils # 6.0 Lymphocytes # 1.2 Monocytes # 0.5 Eosinophils # 0.4 Basophils # 0.0 Nucleated Red Blood Cells # 0.0 Bedside Glucose 171 198 170 Medications Medications Current Medications Acetaminophen (Tylenol Tab) 650 mg Q6H PRN PO PAIN LEVEL 1-3 OR FEVER Last administered on 01/18/17 01:51; Admin Dose 650 MG; Start 01/11/17 at 00:00 Docusate Sodium (Colace) 100 mg Q12H PRN PO CONSTIPATION; Start 01/11/17 at 00 :00 Bisacodyl (Dulcolax) 5 mg DAILY PRN PO CONSTIPATION; Start 01/11/17 at 00:00 Famotidine (Pepcid) 20 mg Q12 PO Last administered on 01/20/17 08:20; Admin Dose 20 MG; Start 01/11/17 at 00:00 Lorazepam (Ativan) 1 mg Q4H PRN IV AGITATION/ANXIETY Last administered on 01/20 15:50; Admin Dose 1 MG; Start 01/11/17 at 01:30 Aspirin (Halfprin) 81 mg DAILY PO Last administered on 01/20/17 08:20; Admin Dose 81 MG; Start 01/11/17 at 09:00 Miscellaneous Information 1 ea NOTE XX ; Start 01/11/17 at 02:00 Glucose (Glutose) 15 gm Q15M PRN PO DECREASED GLUCOSE; Start 01/11/17 at 02:00 Glucose (Glutose) 22.5 gm Q15M PRN PO DECREASED GLUCOSE; Start 01/11/17 at 02: 00 Dextrose (D50w Syringe) 25 ml Q15M PRN IV DECREASED GLUCOSE Last administered on 01/15/17 05:38; Admin Dose 25 ML; Start 01/11/17 at 02:00 Dextrose (D50w Syringe) 50 ml Q15M PRN IV DECREASED GLUCOSE; Start 01/11/17 at 02:00 Glucagon (Glucagen) 1 mg Q15M PRN IM DECREASED GLUCOSE; Start 01/11/17 at 02: 00 Glucose (Glutose) 15 gm Q15M PRN BUCCAL DECREASED GLUCOSE; Start 01/11/17 at 02:00 Insulin Aspart (Adult SC Insulin - Mild Algorithm)... Q4 SC Last administered on 01/20/17 17:20; Admin Dose 1 UNIT; Start 01/12/17 at 09:00 Dobutamine HCl/ Dextrose 250 ml @ 7.748 mls/ hr TITRATE IV Last administered on 01/14/17 07:23; Admin Dose 12.396 MLS/HR; Start 01/12/17 at 12:30; Status Future Hold IV Flush (NS 10 ml) 10 ml PRN PRN IV IV PROTOCOL; Start 01/15/17 at 21:30 Lisinopril (Zestril) 2.5 mg DAILY PO Last administered on 01/20/17 08:21; Admin Dose 2.5 MG; Start 01/17/17 at 09:00 Furosemide (Lasix) 40 mg DAILY IV Last administered on 01/20/17 08:19; Admin Dose 40 MG; Start 01/18/17 at 09:00 Miscellaneous Information Patients own medicat... BID@10,16 XX ; Start at 10:00 Vancomycin HCl (Vancocin) 250 ml @ 125 mls/hr Q12H IVPB Last administered on 01/20/17 13:25; Admin Dose 125 MLS/HR; Start 01/18/17 at 12:00 Digoxin (Digoxin) 0.125 mg DAILY@13 PO Last administered on 01/20/17 13:30; Admin Dose 0.125 MG; Start 01/19/17 at 13:00 Ondansetron HCl (Zofran Inj) 4 mg Q6H PRN IV NAUSEA AND/OR VOMITING Last administered on 01/19/17 08:53; Admin Dose 4 MG; Start 01/19/17 at 09:00 Apixaban (Eliquis) 5 mg BID PO Last administered on 01/20/17 08:20; Admin Dose 5 MG; Start 01/19/17 at 21:00 Guaifenesin/ Codeine Phosphate (Robitussin Ac Liquid Cup) 10 ml Q4H PRN PO COUGH Last administered on 01/20/17 18:22; Admin Dose 10 ML; Start 01/19/17 at 22:00 Amiodarone HCl (Cordarone) 400 mg BID PO ; Start 01/20/17 at 21:00 Metoprolol Tartrate 100 mg 100 mg BID NGT ; Start 01/20/17 at 21:00 Magnesium Sulfate (Magnesium Sulfate 4 Gm/100 ml) 100 ml @ 25 mls/hr ONCE ONCE IVPB Last administered on 01/20/17 16:17; Admin Dose 25 MLS/HR; Start 01/20/17 at 15:30; Stop 01/20/17 at 19:29 Miscellaneous Information (*Rx Drug Level Order Reminder*) VANCOMYCIN TROUGH AT 2300 ONCE ONCE XX ; Start 01/20/17 at 23:00; Stop 01/20/17 at 23:01 MAURILIO AMEZQUITA Jan 20, 2017 18:43
[2017-01-20] MEDS: METOPROLOL 100 MG TAB NGT SCH (20:12)
[2017-01-20] MEDS ORDERED: ACCUCHECK 2 AM XX SCH (23:00)
[2017-01-21] VITALS (7 sets, daily range): BP systolic 110–113; BP diastolic 57–70; PULSE 99–106; RESP 18
[2017-01-21] MEDS: VANCOMYCIN 1 GM in NS 250 ML IVPB SCH (00:38)
[2017-01-21] MEDS: GUAIFENESIN/CODEINE 5ML CUP PO PRN ×2 (01:12→08:50)
[2017-01-21] MEDS: ALBUTEROL/IPRATROPIUM (NEB) 3 ML AMP HHN SCH ×3 (01:47→13:18)
[2017-01-21] MEDS ORDERED: INSULIN ASPART [NOVOLOG] 3 ML PEN SC SCH (07:30)
[2017-01-21] MEDS: Insulin NOVOLOG SS MILD Algorithm (SS with meals and bedtime) SC SCH ×2 (07:30→12:25)
[2017-01-21 07:41] LABS: CREATININE 1.02 mg/dl (0.44-1.00); MAGNESIUM 2.2 mg/dl (1.7-2.5); POTASSIUM 4.8 mmol/L (3.5-5.1)
[2017-01-21] MEDS: FAMOTIDINE 20 MG TAB PO SCH (08:47)
[2017-01-21] MEDS: ASPIRIN (EC) 81 MG TAB PO SCH (08:47)
[2017-01-21] MEDS: FUROSEMIDE 40 MG INJ IV SCH (08:47)
[2017-01-21] MEDS: AMIODARONE 200 MG TAB PO SCH (08:48)
[2017-01-21] MEDS: APIXABAN 5 MG TABLET PO SCH (08:49)
[2017-01-21] MEDS: LORAZEPAM 2 MG INJ IV PRN (08:50)
[2017-01-21] MEDS: METOPROLOL 100 MG TAB NGT SCH (08:50)
[2017-01-21] MEDS: LISINOPRIL 5 MG TAB PO SCH (09:00)
[2017-01-21] MEDS: DIGOXIN 0.125 MG TAB PO SCH (12:21)
--- NOTE | 2017-01-21 13:35 | CONS ---
Date/Time of Note Date/Time of Note DATE: 01/21/17 TIME: 13:30 Assessment/Plan Assessment/Plan Chief Complaint/Hosp Course IMPRESSION 1. Hypotension/shock-improved off of pressors/inotropes and tolerating anti- hypertensives 2. Atrial flutter with variable response and some mild RVR 3. History of cardiomyopathy with severely depressed left ventricular ejection fraction. 4. Congestive heart failure by chest x-ray, systolic, acute on chronic 5. Substance abuse including methamphetamines. 6. History of cerebrovascular accident. 7. Diabetes mellitus. 8. History of chronic obstructive pulmonary disease. Recc: -Tele -Continue PO amio in attempt to return patient to SR but will decrsae to daily and possibly d/c if remains in AF -Continue ACEI/BB as tolerated -Change succinate back to toprol given low EF and follow HR closely -Continue asa/digoxin -wwould start systemic anti-coag with eliquis -Continue lasix diuresis daily at this time and follow volume status closely Problems: Consultation Date/Type/Reason Admit Date/Time Jan 10, 2017 at 22:38 Initial Consult Date 01/11/2017 Type of Consultation: cardiology Reason for Consultation cardiomyopathy Referring Provider: MAURILIO AMEZQUITA Exam/Review of Systems Vital Signs Vitals Vital Signs Date Time Temp Pulse Resp B/P Pulse Ox O2 Delivery O2 Flow Rate FiO2 01/21/17 13:19 102 18 96 21 01/21/17 12:00 98.2 110/68 01/19/17 14:26 2.0 01/18/17 16:00 Room Air Intake and Output 01/20/17 01/20/17 01/21/17 15:00 23:00 07:00 Intake Total 1050 ml 250 ml Output Total 1800 ml 650 ml Balance -750 ml -400 ml Exam Review of Systems: CONSTITUTIONAL: No fevers, chills. PULMONARY: No sob CARDIOVASCULAR: No chest pain/palpitations GASTROINTESTINAL: No nausea/vomiting. GENITOURINARY: No hematuria/dysuria. MUSCULOSKELETAL: No myagias/arthalgias. PSYCHIATRIC: The patient denies depression. NEUROLOGIC: No weakness Constitutional: alert, oriented Psych: confusion, no complaints Head: normocephalic ENMT: mucosa pink and moist Neck: jvd (9 cm water), supple Respiratory: diminished breath sounds (at bases/B) Cardiovascular: irregular rhythm Gastrointestinal: non-tender, soft Musculoskeletal: muscle tone (normal) Extremities: edema (trace/B) Neurological: other (No focval deficits) Results Result Diagram: 01/20/17 0550 01/21/17 0630 Results 24 hrs Laboratory Tests Test 01/20/17 17:16 01/20/17 20:10 01/20/17 23:08 01/21/17 02:12 Bedside Glucose 170 214 224 H Vancomycin Level Trough 13.4 Test 01/21/17 06:30 01/21/17 08:00 01/21/17 12:15 Sodium Level 133 L Potassium Level 4.8 Chloride Level 92 L Carbon Dioxide Level 33 H Anion Gap 13 Blood Urea Nitrogen 14 Creatinine 1.02 H Glucose Level 149 # Calcium Level 9.0 Magnesium Level 2.2 Bedside Glucose 138 189 Medications Medications Current Medications Acetaminophen (Tylenol Tab) 650 mg Q6H PRN PO PAIN LEVEL 1-3 OR FEVER Last administered on 01/18/17 01:51; Admin Dose 650 MG; Start 01/11/17 at 00:00 Docusate Sodium (Colace) 100 mg Q12H PRN PO CONSTIPATION; Start 01/11/17 at 00 :00 Bisacodyl (Dulcolax) 5 mg DAILY PRN PO CONSTIPATION; Start 01/11/17 at 00:00 Famotidine (Pepcid) 20 mg Q12 PO Last administered on 01/21/17 08:47; Admin Dose 20 MG; Start 01/11/17 at 00:00 Lorazepam (Ativan) 1 mg Q4H PRN IV AGITATION/ANXIETY Last administered on 01/21 08:50; Admin Dose 1 MG; Start 01/11/17 at 01:30 Aspirin (Halfprin) 81 mg DAILY PO Last administered on 01/21/17 08:47; Admin Dose 81 MG; Start 01/11/17 at 09:00 Miscellaneous Information 1 ea NOTE XX ; Start 01/11/17 at 02:00 Glucose (Glutose) 15 gm Q15M PRN PO DECREASED GLUCOSE; Start 01/11/17 at 02:00 Glucose (Glutose) 22.5 gm Q15M PRN PO DECREASED GLUCOSE; Start 01/11/17 at 02: 00 Dextrose (D50w Syringe) 25 ml Q15M PRN IV DECREASED GLUCOSE Last administered on 01/15/17 05:38; Admin Dose 25 ML; Start 01/11/17 at 02:00 Dextrose (D50w Syringe) 50 ml Q15M PRN IV DECREASED GLUCOSE; Start 01/11/17 at 02:00 Glucagon (Glucagen) 1 mg Q15M PRN IM DECREASED GLUCOSE; Start 01/11/17 at 02: 00 Glucose 15 gm 15 gm Q15M PRN BUCCAL DECREASED GLUCOSE; Start 01/11/17 at 02:00 Dobutamine HCl/ Dextrose 250 ml @ 7.748 mls/ hr TITRATE IV Last administered on 01/14/17 07:23; Admin Dose 12.396 MLS/HR; Start 01/12/17 at 12:30; Status Future Hold IV Flush (NS 10 ml) 10 ml PRN PRN IV IV PROTOCOL; Start 01/15/17 at 21:30 Lisinopril (Zestril) 2.5 mg DAILY PO Last administered on 01/20/17 08:21; Admin Dose 2.5 MG; Start 01/17/17 at 09:00 Furosemide (Lasix) 40 mg DAILY IV Last administered on 01/21/17 08:47; Admin Dose 40 MG; Start 01/18/17 at 09:00 Miscellaneous Information Patients own medicat... BID@10,16 XX ; Start at 10:00 Digoxin (Digoxin) 0.125 mg DAILY@13 PO Last administered on 01/21/17 12:21; Admin Dose 0.125 MG; Start 01/19/17 at 13:00 Ondansetron HCl (Zofran Inj) 4 mg Q6H PRN IV NAUSEA AND/OR VOMITING Last administered on 01/19/17 08:53; Admin Dose 4 MG; Start 01/19/17 at 09:00 Apixaban (Eliquis) 5 mg BID PO Last administered on 01/21/17 08:49; Admin Dose 5 MG; Start 01/19/17 at 21:00 Guaifenesin/ Codeine Phosphate (Robitussin Ac Liquid Cup) 10 ml Q4H PRN PO COUGH Last administered on 01/21/17 08:50; Admin Dose 10 ML; Start 01/19/17 at 22:00 Amiodarone HCl (Cordarone) 400 mg BID PO Last administered on 01/21/17 08:48 ; Admin Dose 400 MG; Start 01/20/17 at 21:00 Metoprolol Tartrate (Lopressor) 100 mg BID NGT Last administered on 01/21/17 08:50; Admin Dose 100 MG; Start 01/20/17 at 21:00 Diagnostic Test (Pha) (Accu-Chek) 1 ea 02 XX Last administered on 01/21/17 02 :22; Admin Dose 1 EA; Start 01/20/17 at 23:00 DAJA CROSS Jan 21, 2017 13:35
--- NOTE | 2017-01-21 14:10 | CONS ---
Date/Time of Note Date/Time of Note DATE: 01/21/17 TIME: 14:06 Consult Date/Type/Reason Admit Date/Time Jan 10, 2017 at 22:38 Initial Consult Date 01/16/17 Type of Consultation: ID Ordering Provider: MAURILIO AMEZQUITA Objective Vital Signs Date Time Temp Pulse Resp B/P Pulse Ox O2 Delivery O2 Flow Rate FiO2 01/21/17 13:19 102 18 96 21 01/21/17 12:00 98.2 110/68 01/19/17 14:26 2.0 01/18/17 16:00 Room Air Intake and Output 01/20/17 01/20/17 01/21/17 15:00 23:00 07:00 Intake Total 1050 ml 250 ml Output Total 1800 ml 650 ml Balance -750 ml -400 ml Results/Medications Result Diagram: 01/20/17 0550 01/21/17 0630 Results 24 hrs Laboratory Tests Test 01/20/17 17:16 01/20/17 20:10 01/20/17 23:08 01/21/17 02:12 Bedside Glucose 170 214 224 H Vancomycin Level Trough 13.4 Test 01/21/17 06:30 01/21/17 08:00 01/21/17 12:15 Sodium Level 133 L Potassium Level 4.8 Chloride Level 92 L Carbon Dioxide Level 33 H Anion Gap 13 Blood Urea Nitrogen 14 Creatinine 1.02 H Glucose Level 149 # Calcium Level 9.0 Magnesium Level 2.2 Bedside Glucose 138 189 Medications Current Medications Acetaminophen (Tylenol Tab) 650 mg Q6H PRN PO PAIN LEVEL 1-3 OR FEVER Last administered on 01/18/17 01:51; Admin Dose 650 MG; Start 01/11/17 at 00:00 Docusate Sodium (Colace) 100 mg Q12H PRN PO CONSTIPATION; Start 01/11/17 at 00 :00 Bisacodyl (Dulcolax) 5 mg DAILY PRN PO CONSTIPATION; Start 01/11/17 at 00:00 Lorazepam (Ativan) 1 mg Q4H PRN IV AGITATION/ANXIETY Last administered on 01/21 08:50; Admin Dose 1 MG; Start 01/11/17 at 01:30 Aspirin (Halfprin) 81 mg DAILY PO Last administered on 01/21/17 08:47; Admin Dose 81 MG; Start 01/11/17 at 09:00 Miscellaneous Information 1 ea NOTE XX ; Start 01/11/17 at 02:00 Glucose (Glutose) 15 gm Q15M PRN PO DECREASED GLUCOSE; Start 01/11/17 at 02:00 Glucose (Glutose) 22.5 gm Q15M PRN PO DECREASED GLUCOSE; Start 01/11/17 at 02: 00 Dextrose (D50w Syringe) 25 ml Q15M PRN IV DECREASED GLUCOSE Last administered on 01/15/17 05:38; Admin Dose 25 ML; Start 01/11/17 at 02:00 Dextrose (D50w Syringe) 50 ml Q15M PRN IV DECREASED GLUCOSE; Start 01/11/17 at 02:00 Glucagon (Glucagen) 1 mg Q15M PRN IM DECREASED GLUCOSE; Start 01/11/17 at 02: 00 Glucose (Glutose) 15 gm Q15M PRN BUCCAL DECREASED GLUCOSE; Start 01/11/17 at 02:00 IV Flush (NS 10 ml) 10 ml PRN PRN IV IV PROTOCOL; Start 01/15/17 at 21:30 Lisinopril (Zestril) 2.5 mg DAILY PO Last administered on 01/20/17 08:21; Admin Dose 2.5 MG; Start 01/17/17 at 09:00 Miscellaneous Information Patients own medicat... BID@ XX ; Start at 10:00 Digoxin (Digoxin) 0.125 mg DAILY@13 PO Last administered on 01/21/17 12:21; Admin Dose 0.125 MG; Start 01/19/17 at 13:00 Ondansetron HCl (Zofran Inj) 4 mg Q6H PRN IV NAUSEA AND/OR VOMITING Last administered on 01/19/17 08:53; Admin Dose 4 MG; Start 01/19/17 at 09:00 Apixaban (Eliquis) 5 mg BID PO Last administered on 01/21/17 08:49; Admin Dose 5 MG; Start 01/19/17 at 21:00 Guaifenesin/ Codeine Phosphate (Robitussin Ac Liquid Cup) 10 ml Q4H PRN PO COUGH Last administered on 01/21/17 08:50; Admin Dose 10 ML; Start 01/19/17 at 22:00 Diagnostic Test (Pha) (Accu-Chek) 1 ea 02 XX Last administered on 01/21/17t 02 :22; Admin Dose 1 EA; Start 01/20/17 at 23:00 Amiodarone HCl (Cordarone) 200 mg DAILY PO ; Start 01/22/17 at 09:00 Metoprolol Succinate (Toprol Xl) 50 mg BID PO ; Start 01/21/17 at 21:00 Apixaban (Eliquis) 5 mg BID PO ; Start 01/21/17 at 21:00 Assessment/Plan Chief Complaint/Hosp Course SUBJECTIVE: No events overnight. The patient is alert, feels good. MICROBIOLOGY: Blood cultures since admission grew Corynebacterium species and coagulase-negative staph species. Urine culture negative. ANTIMICROBIALS: The patient is on IV vancomycin. INDWELLINGS: Right upper extremity PICC line. DIAGNOSTICS: Chest x-ray from yesterday revealed pulmonary edema with mild left basilar atelectasis and small left pleural effusion. PHYSICAL EXAMINATION: GENERAL: A well-developed, middle-aged white woman who is alert, in no distress. HEENT: Head atraumatic, normocephalic. Sclerae anicteric. Buccal mucosa dry. NECK: Supple. CHEST: Rise symmetrical. Breath sounds diminished to bases. HEART: S1, S2. ABDOMEN: Soft, bowel sounds present. EXTREMITIES: Without cyanosis. ASSESSMENT: 1. Status post shock. 2. Coagulase-negative staph bacteremia, 2D echocardiogram revealed no vegetations. 3. Severe cardiomyopathy with ejection fraction 15-20%. 4. Resolving encephalopathy. 5. Status post rapid atrial flutter, atrial fibrillation. 6. Diabetes. 7. History of substance abuse. PLAN: Remains stable. Repeat bld cx neg, will dc abx, f/u card/pulmonary/neuro rec-s [facility] staff Problems: CHRISTIANO CHRISTIANSON NP Jan 21, 2017 14:10
[2017-01-21] MEDS ORDERED: CARV12.579 PO (14:15)
[2017-01-21] MEDS ORDERED: APIX5TAB PO (14:15)
[2017-01-21] MEDS ORDERED: SITA100T8 PO (14:15)
[2017-01-21] MEDS ORDERED: AMIO200T2 PO (14:15)
[2017-01-21] MEDS ORDERED: METF1000 PO (14:15)
[2017-01-21] MEDS ORDERED: BENA20TA48 PO (14:15)
[2017-01-21] MEDS ORDERED: FURO-109 PO (14:15)
--- NOTE | 2017-01-21 14:17 | PDOCDIS ---
Discharge Instructions DIAGNOSIS Discharge Diagnosis Acute systolic CHF exacerbation Atrial fibrillation CONDITION Patient Condition: Fair HOME CARE INSTRUCTIONS: Diet Instructions: Reduced SodiumSpecial Diet: NPO FOLLOW UP/APPOINTMENTS Follow-up Plan It is extremely important that you take your medications as prescribed. They have been sent electronically to [facility] pharmacy You must see your doctor within the next 1-2 weeks to have your blood work checked You can also make an appointment with your orchid transplanter Dr Vasquez in clinic Return to the hospital if you have trouble breathing or any other concernign CORNELIO Nava MD Jan 21, 2017 14:17
--- NOTE | 2017-01-21 14:22 | DS ---
Date/Time of Note Date/Time of Note DATE: 01/21/17 TIME: 14:18 Discharge Summary Admission/Discharge Info Admit Date/Time Jan 10, 2017 at 22:38 Discharge Date/Time Discharge Diagnosis Acute systolic CHF exacerbation Atrial fibrillation Patient Condition: Fair Hx of Present Illness Chief complaint: Shortness of breath, diarrhea vomiting This is a 56-year-old female with a past medical history of atrial fibrillation who presents today with shortness of breath and diarrhea and vomiting 1 day. Patient states that she was feeling fine on on Saturday and then on Saturday started developing shortness of breath diarrhea and vomiting. The vomiting and diarrhea were nonbloody. Patient states that she last use marijuana and methamphetamine approximately 3 days ago. She uses marijuana fairly often though she has decreased her methamphetamine use. Denies eating any undercooked foods or any food prepared outside her home. She denies any fevers. She denies any palpitations. In the ED patient did receive IV Cardizem followed by Cardizem drip at which point the patient's heart rate improved as well as her blood pressure. At the current time patient denies any chest pain or palpitations. Her mouth does feel dry. She denies any shortness of breath at this time. Of note patient states that she is compliant with her medications, though when looking at her medications I do see that she has multiple relatively full bottles of various medications. Allergies: NKDA Medications: See MAR Hospital Course SUBJECTIVE: No events overnight. The patient is alert, feels good. MICROBIOLOGY: Blood cultures since admission grew Corynebacterium species and coagulase-negative staph species. Urine culture negative. ANTIMICROBIALS: The patient is on IV vancomycin. INDWELLINGS: Right upper extremity PICC line. DIAGNOSTICS: Chest x-ray from yesterday revealed pulmonary edema with mild left basilar atelectasis and small left pleural effusion. PHYSICAL EXAMINATION: GENERAL: A well-developed, middle-aged white woman who is alert, in no distress. HEENT: Head atraumatic, normocephalic. Sclerae anicteric. Buccal mucosa dry. NECK: Supple. CHEST: Rise symmetrical. Breath sounds diminished to bases. HEART: S1, S2. ABDOMEN: Soft, bowel sounds present. EXTREMITIES: Without cyanosis. ASSESSMENT: 1. Status post shock. 2. Coagulase-negative staph bacteremia, 2D echocardiogram revealed no vegetations. 3. Severe cardiomyopathy with ejection fraction 15-20%. 4. Resolving encephalopathy. 5. Status post rapid atrial flutter, atrial fibrillation. 6. Diabetes. 7. History of substance abuse. PLAN: Remains stable. Repeat bld cx neg, will dc abx, f/u card/pulmonary/neuro rec-s [facility] staff The patient was found to be in rapid atrial fibrillation. She was given IV diltiazem and continued on this as a drip. She became hypotensive as a result, prompting ICU transfer for vasopressors. She remained stable from a respiratory standpiont on levophed, however over the course of the followign day developed resipatory failure from pulmonary edema requiring intubation. She was maintined on dobutamine and levophed, given diuresis and amiodarone and was then able to be extubated. Diureses was conntinued Today, the patient asked to be discharged in order to go care for her pets. I explained to her it would be best to stay in the hosptial for another day or two to continued medication titratino and complete diuresis. However, she was very adamant about being dicharged and clearly has the capacity to make this decision as she is clearly able to state the risks of leaving early including shortness of breath, respiratoyr failure and even . She will be discharged on: - Eliquis - Lasix 40 BID - Benazapril 20 - Coreg 3.125 - metformin, januvia - Amiodarone 200 She will follow up in clinic in the next 1-2 weeks for blood workup She was extensively counseled on the need for medication adherence, close followup with her MD, and avoidance of drugs Home Meds Active Scripts Amiodarone Hcl* (Amiodarone Hcl*) 200 Mg Tablet, 200 MG PO DAILY for 30 Days, # 60 TAB Prov:CORNELIO MONTERO MD 01/21/17 Apixaban* (Eliquis*) 5 Mg Tablet, 5 MG PO BID for 30 Days, #60 TAB Prov:CORNELIO MONTERO MD 01/21/17 Furosemide* (Lasix*) 40 Mg Tablet, 40 MG PO BID for 30 Days, #60 TAB Prov:CORNELIO MONTERO MD 01/21/17 Sitagliptin* (Januvia*) 100 Mg Tablet, 100 MG PO DAILY, #30 TAB Prov:CORNELIO MONTERO MD 01/21/17 Carvedilol* (Carvedilol*) 12.5 Mg Tablet, 12.5 MG PO BID, #60 TAB Prov:CORNELIO MONTERO MD 01/21/17 Metformin Hcl* (Metformin Hcl*) 1,000 Mg Tablet, 1000 MG PO WITH BREAKFAST DINNE , #60 TAB Prov:CORNELIO MONTERO MD 01/21/17 Benazepril Hcl* (Benazepril Hcl*) 20 Mg Tablet, 20 MG PO DAILY for 30 Days, #30 TAB Prov:CORNELIO MONTERO MD 01/21/17 Discontinued Reported Medications Aspirin* (Aspirin* EC) 81 Mg Tablet., 81 MG PO DAILY, TAB 01/10/17 Follow-up Plan It is extremely important that you take your medications as prescribed. They have been sent electronically to [facility] pharmacy You must see your doctor within the next 1-2 weeks to have your blood work checked You can also make an appointment with your patented hogshead assembler Dr Vasquez in clinic Return to the hospital if you have trouble breathing or any other concernign [facility] Primary Care Provider Kvng Baldwin MD Time spent on discharge: > 30 minutes Pending Labs Laboratory Tests Test 01/20/17 17:16 01/20/17 20:10 01/20/17 23:08 01/21/17 02:12 Bedside Glucose 170mg/dL (70-220) 214mg/dL (70-220) 224mg/dL (70-220) Vancomycin Level Trough 13.4ug/ml (10.0-20.0) Test 01/21/17 06:30 01/21/17 08:00 01/21/17 12:15 Sodium Level 133mmol/L (135-144) Potassium Level 4.8mmol/L (3.5-5.1) Chloride Level 92mmol/L (97-110) Carbon Dioxide Level 33mmol/L (21-31) Anion Gap 13 (8-16) Blood Urea Nitrogen 14mg/dl (7-20) Creatinine 1.02mg/dl (0.44-1.00) Glucose Level 149mg/dl (70-220) Calcium Level 9.0mg/dl (8.4-10.2) Magnesium Level 2.2mg/dl (1.7-2.5) Bedside Glucose 138mg/dL (70-220) 189mg/dL (70-220) CORNELIO MONTERO MD Jan 21, 2017 14:22
[2017-01-21] MEDS ORDERED: FUROSEMIDE 40 MG INJ IV SCH (18:00)
[2017-01-21] MEDS ORDERED: METOPROLOL (XL) 50 MG TAB PO SCH (21:00)
[2017-01-21] MEDS ORDERED: APIXABAN 5 MG TABLET PO SCH (21:00)
[2017-01-22] MEDS ORDERED: AMIODARONE 200 MG TAB PO SCH (09:00)
== END 2017-01-21 16:15 | disposition home or self-care (01) | DRG 208 ==
LOC: E/R 20:26 → MS4 22:38 → ICU 01-11 00:52 → MS4 01-17 18:26
PROVIDERS: ADMIT Family Medicine; ATTEND Family Medicine
PROC: 5A1945Z Respiratory Ventilation, 24-96 Consecutive Hours (ICD-10-PCS; principal; 2017-01-12)
PROC: 0BH17EZ Insertion of Endotracheal Airway into Trachea, Via Natural or Artificial Opening (ICD-10-PCS; 2017-01-12)
PROC: 02HV33Z Insertion of Infusion Device into Superior Vena Cava, Percutaneous Approach (ICD-10-PCS; 2017-01-15)
DX: J96.01 Acute respiratory failure with hypoxia (principal); R57.0 Cardiogenic shock; I50.23 Acute on chronic systolic (congestive) heart failure; G93.41 Metabolic encephalopathy; N17.9 Acute kidney failure, unspecified; R78.81 Bacteremia; I48.92 Unspecified atrial flutter; I42.9 Cardiomyopathy, unspecified; I11.0 Hypertensive heart disease with heart failure; J44.9 Chronic obstructive pulmonary disease, unspecified; I48.0 Paroxysmal atrial fibrillation; F15.10 Other stimulant abuse, uncomplicated; E66.9 Obesity, unspecified; Z68.37 Body mass index [BMI] 37.0-37.9, adult; Z86.73 Personal history of transient ischemic attack (TIA), and cerebral infarction without residual deficits; Z87.891 Personal history of nicotine dependence; B95.7 Other staphylococcus as the cause of diseases classified elsewhere
CPT/HCPCS: 31500; 36415; 36569; 36600; 70450; 70551; 71010; 76937; 80048; 80053; 80061; 80202; 80307; 81001; 82550; 82553; 82803; 82962; 83036; 83605; 83735; 83880; 84100; 84443; 84484; 85025; 87040; 87070; 87081; 87086; 89220; 92526; 92610; 93005; 93306; 94002; 94003; 94640; 94660; 94664; 94770; 96374; 96375; J1250; J1940; J0282; J1650; J1815; J2060; J2405; J2543; J3010; J3370; J3480; J7030; J7040; J7042; J7050; J7060

== ENCOUNTER → 2017-05-20 | Outpatient (CLI) | END | disposition home or self-care (01) ==

== ENCOUNTER 2017-07-08 16:41 | Inpatient (IN) | END 2017-07-10 17:00 | disposition home health service (06) | DRG 292 ==

== ENCOUNTER 2017-08-18 03:48 | Inpatient (IN) | END 2017-08-20 16:40 | disposition home or self-care (01) | DRG 637 ==

== ENCOUNTER → 2017-11-11 | Outpatient (CLI) | END | disposition home or self-care (01) ==

== ENCOUNTER 2018-03-12 08:10 | Day surgery (SDC) | END 2018-03-12 11:25 | disposition home or self-care (01) ==